=== PATIENT | female | born 1970 | race Asian ===

== ENCOUNTER 2017-07-24 13:21 | Emergency (ER) | payer MEDICAID ==
[~2017-07-24] VITALS: Ht 165.1 cm; Wt 72.7 kg
[~2017-07-24 13:21] MED LIST: DOCU250C91 PO; LURA80 PO; MACR100 PO
[2017-07-24] MEDS ORDERED: RISPC25 IM (13:44)
[2017-07-24 14:31] LABS: BASOPHILS % (AUTO) 0.2 % (0.0-2.0); EOSINOPHILS % (AUTO) 2.2 % (1.0-6.0); HEMATOCRIT 35.7 % (36-46); HEMOGLOBIN 12.1 g/dL (12.0-16.0); LYMPHOCYTES # (AUTO) 1.8 K/uL (1.0-4.8); LYMPHOCYTES % (AUTO) 17.1 % (22.0-44.0); MEAN CORPUSCULAR HEMOGLOBIN 30.3 pg (26.0-34.0); MEAN CORPUSCULAR VOLUME 89 fL (80-100); MONOCYTES # (AUTO) 0.4 K/uL (0.1-1.0); MONOCYTES % (AUTO) 4.3 % (2.0-9.0); NEUTROPHILS # (AUTO) 7.9 K/uL (1.8-7.7); NEUTROPHILS % (AUTO) 76.2 % (40.0-70.0); PLATELET COUNT (AUTO) 511 K/uL (150-450); RED CELL DISTRIBUTION WIDTH 15.5 % (11.5-14.5); WHITE BLOOD COUNT (AUTO) 10.4 K/uL (4.5-11.0)
[2017-07-24 15:21] LABS: ANION GAP 11 mmol/L (8-16); CALCIUM, TOTAL 8.5 mg/dL (8.8-10.5); CARBON DIOXIDE 25 mmol/L (22-29); CHLORIDE 103 mmol/L (98-107); CREATININE 0.87 mg/dL (0.60-1.30); GLOMERULAR FILTR. RATE CALC > 60 mL/min (>60); SODIUM SERUM 139 mmol/L (136-145); UREA NITROGEN, BLOOD 7 mg/dL (7-18)
[2017-07-24 15:27] LABS: ALANINE AMINOTRANSFERASE 70 U/L (12-78); ALBUMIN 2.7 g/dL (3.4-5.0); ASPARTATE AMINOTRANSFERASE 61 U/L (15-37); BILIRUBIN,TOTAL 0.6 mg/dL (0.1-1.0)
[2017-07-24 17:34] VITALS: BP 141/89
== END 2017-07-24 17:37 | disposition home or self-care (01) ==
LOC: EMS 13:22
DX: L08.9 Local infection of the skin and subcutaneous tissue, unspecified (principal); F45.8 Other somatoform disorders; F20.9 Schizophrenia, unspecified; F15.10 Other stimulant abuse, uncomplicated; F17.210 Nicotine dependence, cigarettes, uncomplicated
CPT/HCPCS: 99285; 99406

== ENCOUNTER 2019-01-06 01:28 | Inpatient (IN) | payer MEDICAID ==
[~2019-01-06] VITALS: Ht 165.1 cm; Wt 77.3 kg
[~2019-01-06 01:28] MED LIST changes: +BICIT30L PO; -MACR100 PO; +METO25 PO; +PALI39DI IM
[2019-01-06] MEDS ORDERED: SODIUM CHLORIDE 0.9% 2,300 ML IV ONE (03:00)
[2019-01-06] MEDS ORDERED: 0.9% SODIUM CHLORIDE 10 ML SYRINGE IVP PRN ×2 (03:00→06:15)
[2019-01-06] MEDS ORDERED: RISP0.5T61 PO (03:22)
[2019-01-06 03:37] LABS: BASOPHILS % (AUTO) 0.6 % (0.0-2.0); EOSINOPHILS % (AUTO) 5.3 % (1.0-6.0); HEMATOCRIT 37.2 % (36-46); HEMOGLOBIN 12.1 g/dL (12.0-16.0); LYMPHOCYTES # (AUTO) 1.2 K/uL (1.0-4.8); LYMPHOCYTES % (AUTO) 12.7 % (22.0-44.0); MEAN CORPUSCULAR HEMOGLOBIN 28.3 pg (26.0-34.0); MEAN CORPUSCULAR HGB CONC 32.5 G/dL (31.0-37.0); MEAN CORPUSCULAR VOLUME 87 fL (80-100); MONOCYTES # (AUTO) 1.2 K/uL (0.1-1.0); MONOCYTES % (AUTO) 12.3 % (2.0-9.0); NEUTROPHILS # (AUTO) 6.6 K/uL (1.8-7.7); NEUTROPHILS % (AUTO) 69.1 % (40.0-70.0); PLATELET COUNT (AUTO) 532 K/uL (150-450); RED BLOOD CELL COUNT(AUTO) 4.26 MIL/uL (4.00-5.20); RED CELL DISTRIBUTION WIDTH 15.5 % (11.5-14.5)
[2019-01-06 03:47] LABS: PROTHROMBIN TIME 10.2 SEC (9.4-11.6)
[2019-01-06 03:48] LABS: CREATININE 1.56 mg/dL (0.60-1.30); POTASSIUM 3.2 mmol/L (3.5-5.1)
[2019-01-06 03:58] LABS: ALBUMIN 1.6 g/dL (3.4-5.0); BILIRUBIN,TOTAL 0.4 mg/dL (0.1-1.0); TOTAL PROTEIN, SERUM 7.1 g/dL (6.4-8.2)
[2019-01-06 04:08] LABS: LACTIC ACID 1.2 mmol/L (0.4-2.0)
[2019-01-06 04:25] LABS: INFLUENZA TYPE A NEGATIVE FOR TYPE A (NEGATIVE); INFLUENZA TYPE B NEGATIVE FOR TYPE B (NEGATIVE)
[2019-01-06] MEDS ORDERED: FUROSEMIDE 40 MG/4 ML VIAL IVP ONE (05:15)
[2019-01-06] MEDS ORDERED: ALBUTEROL SULFATE 2.5 MG/0.5 ML NEB SOLUTION NEB ONE (05:15)
[2019-01-06] MEDS ORDERED: ASPIRIN 81 MG CHEWABLE TABLET PO ONE (05:15)
[2019-01-06] MEDS ORDERED: NITROGLYCERIN 2% (1 GM=INCH) PACKET TP ONE (05:15)
[2019-01-06] MEDS ORDERED: IPRATROPIUM BROMIDE 0.5 MG/2.5 ML NEB SOLUTION NEB ONE (05:15)
[2019-01-06 05:18] LABS: APPEARANCE,URINE TURBID (CLEAR); GLUCOSE, URINE (UA) NEGATIVE (NEGATIVE); KETONES,URINE NEGATIVE (NEGATIVE); LEUKOCYTE ESTERASE ,URINE NEGATIVE (NEGATIVE); NITRATE,URINE NEGATIVE (NEGATIVE); OCCULT BLOOD,URINE LARGE (NEGATIVE); PH,URINE 5.5 (5.0-8.0); PROTEIN,URINE SEE CONFIRM (NEGATIVE)
[2019-01-06 05:25] LABS: BILIRUBIN,URINE PRELIM. POSITIVE (NEGATIVE)
[2019-01-06 05:27] LABS: AMPHET/METH SCREEN,URINE POSITIVE (NEGATIVE); BARBITURATE SCREEN, URINE NEGATIVE (NEGATIVE); BENZODIAZEPINES SCREEN,URINE POSITIVE (NEGATIVE); CANNABINOID SCREEN,URINE NEGATIVE (NEGATIVE); COCAINE SCREEN,URINE POSITIVE (NEGATIVE); METHADONE SCREEN, URINE NEGATIVE (NEGATIVE); OPIATE SCREEN,URINE NEGATIVE (NEGATIVE)
[2019-01-06 05:28] LABS: PHENCYCLIDINE SCREEN,URINE NEGATIVE (NEGATIVE)
[2019-01-06 05:38] LABS: BACTERIA,URINE Few /HPF (None Seen); RBC,URINE 26-50 /HPF (0-2)
[2019-01-06 05:39] LABS: SQUAMOUS EPITHELIAL CELL,UR Moderate /LPF (None Seen); SULFOSALICYLIC ACID,URINE 3+ (Negative)
[2019-01-06] MEDS ORDERED: ONDANSETRON HCL 4 MG/2 ML VIAL IVP PRN (06:15)
[2019-01-06] MEDS ORDERED: ACETAMINOPHEN 325 MG TABLET PO PRN ×2 (06:15→08:00)
[2019-01-06] MEDS ORDERED: ALBUTEROL SULFATE 2.5 MG/0.5 ML NEB SOLUTION NEB SCH (07:00)
[2019-01-06] MEDS: IPRATROPIUM BROMIDE 0.5 MG/2.5 ML NEB SOLUTION NEB SCH ×3 (07:49→15:00)
[2019-01-06] MEDS ORDERED: BISACODYL 10 MG RECTAL RECTAL SUPPOSITORY PR PRN (08:00)
[2019-01-06] MEDS: ASPIRIN 81 MG CHEWABLE TABLET PO SCH (08:30)
[2019-01-06] MEDS: HEPARIN SODIUM,PORCINE 5,000 UNITS/ML VIAL SQ SCH ×2 (08:30→20:00)
[2019-01-06] MEDS: DOCUSATE SODIUM 100 MG CAPSULE PO SCH ×2 (08:31→19:59)
[2019-01-06] MEDS: FAMOTIDINE 20 MG TABLET PO SCH (08:31)
[2019-01-06] MEDS: FUROSEMIDE 20 MG/2 ML VIAL IVP SCH ×2 (08:42→20:00)
[2019-01-06] MEDS: ALBUTEROL SULFATE 2.5 MG/0.5 ML NEB SOLUTION NEB PRN (10:21)
[2019-01-06 15:23] VITALS: BP 116/67
[2019-01-06 19:21] VITALS: BP 132/73
[2019-01-06 23:32] VITALS: BP 134/85
[2019-01-07 04:38] VITALS: BP 136/90
[2019-01-07 07:18] LABS: BASOPHILS % (AUTO) 0.9 % (0.0-2.0); EOSINOPHILS % (AUTO) 8.3 % (1.0-6.0); HEMATOCRIT 39.1 % (36-46); HEMOGLOBIN 12.9 g/dL (12.0-16.0); LYMPHOCYTES # (AUTO) 1.5 K/uL (1.0-4.8); LYMPHOCYTES % (AUTO) 20.1 % (22.0-44.0); MEAN CORPUSCULAR HEMOGLOBIN 28.6 pg (26.0-34.0); MEAN CORPUSCULAR HGB CONC 33.1 G/dL (31.0-37.0); MEAN CORPUSCULAR VOLUME 87 fL (80-100); MONOCYTES % (AUTO) 13.5 % (2.0-9.0); NEUTROPHILS # (AUTO) 4.2 K/uL (1.8-7.7); NEUTROPHILS % (AUTO) 57.2 % (40.0-70.0); PLATELET COUNT (AUTO) 455 K/uL (150-450); RED BLOOD CELL COUNT(AUTO) 4.52 MIL/uL (4.00-5.20); RED CELL DISTRIBUTION WIDTH 15.7 % (11.5-14.5)
[2019-01-07 07:41] LABS: ALBUMIN 1.7 g/dL (3.4-5.0); BILIRUBIN,TOTAL 0.4 mg/dL (0.1-1.0); CALCIUM, TOTAL 8.6 mg/dL (8.8-10.5); CREATININE 1.78 mg/dL (0.60-1.30); POTASSIUM 3.6 mmol/L (3.5-5.1); TOTAL PROTEIN, SERUM 7.3 g/dL (6.4-8.2)
[2019-01-07 07:44] VITALS: BP 151/95
[2019-01-07] MEDS: FUROSEMIDE 20 MG/2 ML VIAL IVP SCH (08:15)
[2019-01-07] MEDS: DOCUSATE SODIUM 100 MG CAPSULE PO SCH ×2 (08:15→20:38)
[2019-01-07] MEDS: ASPIRIN 81 MG CHEWABLE TABLET PO SCH (08:15)
[2019-01-07] MEDS: FAMOTIDINE 20 MG TABLET PO SCH (08:15)
[2019-01-07] MEDS: HEPARIN SODIUM,PORCINE 5,000 UNITS/ML VIAL SQ SCH ×2 (08:15→20:35)
[2019-01-07 11:11] VITALS: BP 139/91
[2019-01-07 15:06] VITALS: BP 135/89
[2019-01-07 19:53] VITALS: BP 150/92
[2019-01-07] MEDS: CARVEDILOL 6.25 MG TABLET PO SCH (20:35)
[2019-01-07 23:41] VITALS: BP 142/79
[2019-01-08 03:40] VITALS: BP 139/92
[2019-01-08] MEDS ORDERED: 0.9% SODIUM CHLORIDE 5 ML NEB SOLUTION NEB ONE (07:28)
[2019-01-08] MEDS: ALBUTEROL SULFATE 2.5 MG/0.5 ML NEB SOLUTION NEB PRN (07:38)
[2019-01-08 08:00] LABS: CALCIUM, TOTAL 8.9 mg/dL (8.8-10.5); CREATININE 1.47 mg/dL (0.60-1.30); POTASSIUM 3.4 mmol/L (3.5-5.1)
[2019-01-08 08:50] VITALS: BP 150/81
[2019-01-08] MEDS: DOCUSATE SODIUM 100 MG CAPSULE PO SCH (08:52)
[2019-01-08] MEDS: HEPARIN SODIUM,PORCINE 5,000 UNITS/ML VIAL SQ SCH (08:53)
[2019-01-08] MEDS: ASPIRIN 81 MG CHEWABLE TABLET PO SCH (08:54)
[2019-01-08] MEDS: FAMOTIDINE 20 MG TABLET PO SCH (08:54)
[2019-01-08] MEDS: CARVEDILOL 6.25 MG TABLET PO SCH (08:54)
[2019-01-08] MEDS ORDERED: FUROSEMIDE 20 MG/2 ML VIAL IVP SCH (09:00)
[2019-01-08] MEDS ORDERED: POTASSIUM CHLORIDE 20 MEQ ER TABLET PO ONE (09:45)
== END 2019-01-08 15:20 | disposition left against medical advice (07) | DRG 194 ==
LOC: EMS 01:28 → 5N 14:38
PROVIDERS: ADMIT Internal Medicine; ATTEND Internal Medicine
DX: I50.41 Acute combined systolic (congestive) and diastolic (congestive) heart failure (principal); N17.9 Acute kidney failure, unspecified; E44.0 Moderate protein-calorie malnutrition; J90 Pleural effusion, not elsewhere classified; I42.9 Cardiomyopathy, unspecified; F20.9 Schizophrenia, unspecified; F14.10 Cocaine abuse, uncomplicated; F15.10 Other stimulant abuse, uncomplicated; Z53.21 Procedure and treatment not carried out due to patient leaving prior to being seen by health care provider; I34.0 Nonrheumatic mitral (valve) insufficiency; F31.9 Bipolar disorder, unspecified; F17.210 Nicotine dependence, cigarettes, uncomplicated; Z91.14 Patient's other noncompliance with medication regimen; Z91.19 Patient's noncompliance with other medical treatment and regimen; Z71.51 Drug abuse counseling and surveillance of drug abuser; Z68.28 Body mass index [BMI] 28.0-28.9, adult
CPT/HCPCS: 83605; 87040; 87804; 93005; 93306; 94640; 96374; G0378; J1644; J1940

== ENCOUNTER 2021-12-30 12:52 | Inpatient (IN) | payer MEDICAID ==
[~2021-12-30] VITALS: Ht 165.1 cm; Wt 65.1 kg
[~2021-12-30 12:52] MED LIST changes: -BICIT30L PO; -DOCU250C91 PO; -LURA80 PO; +RISP0.5T61 PO
[2021-12-30 17:35] LABS: HEMATOCRIT 43.1 % (36-46); HEMOGLOBIN 13.2 g/dL (12.0-16.0); LYMPHOCYTES # (AUTO) 1.3 K/uL (1.0-4.8); LYMPHOCYTES % (AUTO) 19.4 % (22.0-44.0); MEAN CORPUSCULAR HEMOGLOBIN 24.4 pg (26.0-34.0); MEAN CORPUSCULAR HGB CONC 30.8 G/dL (31.0-37.0); MEAN CORPUSCULAR VOLUME 80 fL (80-100); MONOCYTES # (AUTO) 1.2 K/uL (0.1-1.0); NEUTROPHILS # (AUTO) 3.9 K/uL (1.8-7.7); NEUTROPHILS % (AUTO) 59.6 % (40.0-70.0); PLATELET COUNT (AUTO) 404 K/uL (150-450); RED BLOOD CELL COUNT(AUTO) 5.42 MIL/uL (4.00-5.20); RED CELL DISTRIBUTION WIDTH 20.4 % (11.5-14.5)
[2021-12-30 17:38] LABS: ANION GAP 14 mmol/L (8-16); CALCIUM, TOTAL 9.6 mg/dL (8.8-10.5); CARBON DIOXIDE 19 mmol/L (22-29); CHLORIDE 103 mmol/L (98-107); CREATININE 3.38 mg/dL (0.60-1.30); GLOMERULAR FILTR. RATE CALC 14 mL/min (>60); GLUCOSE,RANDOM 95 mg/dL (70-110); POTASSIUM 4.8 mmol/L (3.5-5.1); SODIUM SERUM 136 mmol/L (136-145); UREA NITROGEN, BLOOD 56 mg/dL (7-18)
[2021-12-30 17:51] LABS: ALANINE AMINOTRANSFERASE 161 U/L (12-78); ALBUMIN 3.1 g/dL (3.4-5.0); ALKALINE PHOSPHATASE 190 U/L (46-116); ASPARTATE AMINOTRANSFERASE 343 U/L (15-37); BILIRUBIN,TOTAL 1.3 mg/dL (0.1-1.0); TOTAL PROTEIN, SERUM 8.9 g/dL (6.4-8.2)
[2021-12-30 20:13] LABS: COVID AG,FIA SOURCE NASOPHARYNGEAL
[2021-12-30] MEDS ORDERED: ZOLPIDEM TARTRATE 10 MG TABLET PO PRN (21:15)
[2021-12-30] MEDS ORDERED: OLANZapine 5 MG RAPDIS TABLET PO PRN (21:15)
[2021-12-30 22:26] LABS: AMPHET/METH SCREEN,URINE POSITIVE (NEGATIVE); BARBITURATE SCREEN, URINE NEGATIVE (NEGATIVE); BENZODIAZEPINES SCREEN,URINE NEGATIVE (NEGATIVE); CANNABINOID SCREEN,URINE NEGATIVE (NEGATIVE); COCAINE SCREEN,URINE NEGATIVE (NEGATIVE); METHADONE SCREEN, URINE NEGATIVE (NEGATIVE); OPIATE SCREEN,URINE NEGATIVE (NEGATIVE); PHENCYCLIDINE SCREEN,URINE NEGATIVE (NEGATIVE)
[2021-12-31 03:48] VITALS: BP 148/78
[2021-12-31] MEDS ORDERED: INFLUENZA VIRUS VACCINE QVS 2021-22 (6MO+)/PF 60 MCG/0.5 ML SYRINGE IM. ONE (04:30)
[2021-12-31 08:15] LABS: CHOL/HDL RATIO 3.1 (3.9-5.7); CHOLESTEROL 123 mg/dL (131-200); HDL CHOLESTEROL 40 mg/dL (40-60); LDL CHOL (CALC.) 66 mg/dL (0-130); TRIGLYCERIDES 84 mg/dL (15-150)
[2021-12-31] MEDS: LORazepam 2 MG TABLET PO PRN (09:57)
[2021-12-31] MEDS ORDERED: MAGNESIUM HYDROXIDE SUSPENSION 30 ML UDCUP PO PRN (12:00)
[2021-12-31] MEDS ORDERED: HydrOXYzine PAMOATE 50 MG CAPSULE PO PRN (12:00)
[2021-12-31] MEDS ORDERED: PROMETHAZINE HCL 25 MG TABLET PO PRN (12:00)
[2021-12-31] MEDS ORDERED: ACETAMINOPHEN 325 MG TABLET PO PRN (12:00)
[2021-12-31] MEDS ORDERED: LOPERAMIDE HCL 2 MG CAPSULE PO PRN (12:00)
[2021-12-31] MEDS ORDERED: TUBERCULIN, PURIFIED PROTEIN DERIVATIVE 5 TU/0.1 ML SYRINGE ID ONE (12:00)
[2021-12-31] MEDS ORDERED: MAG HYDROX/AL HYDROX/SIMETH ES 30 ML SUSPENSION UDCUP PO PRN (12:00)
[2021-12-31] MEDS ORDERED: PALIPERIDONE PALMITATE 234 MG/1.5 ML SYRINGE IM ONE (12:00)
[2021-12-31 16:00] VITALS: BP 148/96
[2021-12-31] MEDS: THIAMINE 100 MG TABLET PO SCH (17:00)
[2021-12-31] MEDS: MELATONIN 5 MG TABLET PO SCH (20:39)
[2021-12-31] MEDS: OLANZapine 5 MG RAPDIS TABLET PO SCH (20:39)
[2021-12-31] MEDS ORDERED: CloNIDine HCL 0.1 MG TABLET PO PRN (21:15)
[2022-01-01 08:00] VITALS: BP 144/84
[2022-01-01 08:08] LABS: ALBUMIN 2.4 g/dL (3.4-5.0); BILIRUBIN,TOTAL 1.7 mg/dL (0.1-1.0); CALCIUM, TOTAL 9.2 mg/dL (8.8-10.5); CHOL/HDL RATIO 3.4 (3.9-5.7); CREATININE 3.14 mg/dL (0.60-1.30); FREE T4 (FREE THYROXINE) 1.2 ng/dL (0.76-1.46); MAGNESIUM 2.2 mg/dL (1.80-2.40); PHOSPHORUS 4.2 mg/dL (2.5-4.9); POTASSIUM 4.8 mmol/L (3.5-5.1); THYROID STIMULATING HORMONE 6.25 uIU/mL (0.36-3.74); TOTAL PROTEIN, SERUM 7.4 g/dL (6.4-8.2)
[2022-01-01] MEDS: AmLODIPine BESYLATE 5 MG TABLET PO SCH (08:39)
[2022-01-01] MEDS: MULTIVITAMINS WITH MINERALS, THERAPEUTIC TABLET PO SCH (08:39)
[2022-01-01] MEDS: OMEGA-3/DHA/EPA/FISH OIL 1,000 MG CAPSULE PO SCH (08:39)
[2022-01-01] MEDS: SODIUM BICARBONATE 650 MG TABLET PO SCH (08:40)
[2022-01-01] MEDS: BuPROPion HCL XL 150 MG ER TABLET PO SCH (08:40)
[2022-01-01] MEDS: THIAMINE 100 MG TABLET PO SCH ×2 (08:40→16:42)
[2022-01-01] MEDS: NALTREXONE HCL 50 MG TABLET PO SCH (08:40)
[2022-01-01] MEDS: FOLIC ACID 1 MG TABLET PO SCH (08:40)
[2022-01-01] MEDS ORDERED: METOPROLOL TARTRATE 25 MG TABLET PO SCH (09:00)
[2022-01-01 09:16] LABS: COVID AG,FIA SOURCE NASOPHARYNGEAL
[2022-01-01] MEDS: GuaiFENesin/D-METHORPHAN [SUGAR-FREE] 200-20MG/10 ML SYRUP UDCUP PO PRN ×2 (09:16→18:46)
[2022-01-01 16:54] VITALS: BP 134/83
[2022-01-01] MEDS: MELATONIN 5 MG TABLET PO SCH (20:24)
[2022-01-01] MEDS: OLANZapine 5 MG RAPDIS TABLET PO SCH (20:24)
[2022-01-02 03:06] LABS: HEPATITIS C AB (EIA) <0.1 s/co ratio (0.0-0.9)
[2022-01-02 06:57] VITALS: BP 155/94
[2022-01-02] MEDS: GuaiFENesin/D-METHORPHAN [SUGAR-FREE] 200-20MG/10 ML SYRUP UDCUP PO PRN ×2 (06:57→18:56)
[2022-01-02] MEDS: OMEGA-3/DHA/EPA/FISH OIL 1,000 MG CAPSULE PO SCH (09:04)
[2022-01-02] MEDS: FOLIC ACID 1 MG TABLET PO SCH (09:04)
[2022-01-02] MEDS: THIAMINE 100 MG TABLET PO SCH ×2 (09:04→17:00)
[2022-01-02] MEDS: AmLODIPine BESYLATE 5 MG TABLET PO SCH (09:04)
[2022-01-02] MEDS: NALTREXONE HCL 50 MG TABLET PO SCH (09:04)
[2022-01-02] MEDS: SODIUM BICARBONATE 650 MG TABLET PO SCH (09:05)
[2022-01-02] MEDS: BuPROPion HCL XL 150 MG ER TABLET PO SCH (09:05)
[2022-01-02] MEDS: MULTIVITAMINS WITH MINERALS, THERAPEUTIC TABLET PO SCH (09:05)
[2022-01-02 09:08] VITALS: BP 134/80
[2022-01-02] MEDS ORDERED: PALIPERIDONE PALMITATE 234 MG/1.5 ML SYRINGE IM ONE (11:00)
[2022-01-02] MEDS: OLANZapine 5 MG RAPDIS TABLET PO SCH ×3 (20:22→21:00)
[2022-01-02] MEDS: MELATONIN 5 MG TABLET PO SCH ×3 (20:22→21:16)
[2022-01-03] MEDS: AmLODIPine BESYLATE 5 MG TABLET PO SCH (08:24)
[2022-01-03] MEDS: SODIUM BICARBONATE 650 MG TABLET PO SCH (08:24)
[2022-01-03] MEDS: NALTREXONE HCL 50 MG TABLET PO SCH ×2 (08:24→09:00)
[2022-01-03] MEDS: THIAMINE 100 MG TABLET PO SCH ×3 (08:24→17:00)
[2022-01-03] MEDS: MULTIVITAMINS WITH MINERALS, THERAPEUTIC TABLET PO SCH (08:24)
[2022-01-03] MEDS: FOLIC ACID 1 MG TABLET PO SCH ×2 (08:24→09:00)
[2022-01-03] MEDS: BuPROPion HCL XL 150 MG ER TABLET PO SCH (08:24)
[2022-01-03] MEDS: OMEGA-3/DHA/EPA/FISH OIL 1,000 MG CAPSULE PO SCH ×2 (08:24→09:00)
[2022-01-03] MEDS: LORazepam 2 MG TABLET PO PRN (08:27)
[2022-01-03 08:41] LABS: ALBUMIN 2.5 g/dL (3.4-5.0); BILIRUBIN,TOTAL 1.9 mg/dL (0.1-1.0); CALCIUM, TOTAL 9.1 mg/dL (8.8-10.5); CREATININE 3.26 mg/dL (0.60-1.30); POTASSIUM 4.9 mmol/L (3.5-5.1); TOTAL PROTEIN, SERUM 7.7 g/dL (6.4-8.2)
[2022-01-03 09:44] VITALS: BP 156/114
[2022-01-03] MEDS: LABETALOL HCL 100 MG TABLET PO SCH ×2 (10:28→17:00)
[2022-01-03 11:00] LABS: MAGNESIUM 2.3 mg/dL (1.80-2.40); PHOSPHORUS 4.9 mg/dL (2.5-4.9)
[2022-01-03] MEDS: GuaiFENesin/D-METHORPHAN [SUGAR-FREE] 200-20MG/10 ML SYRUP UDCUP PO PRN (20:02)
[2022-01-03] MEDS: OLANZapine 5 MG RAPDIS TABLET PO SCH (20:13)
[2022-01-03] MEDS: MELATONIN 5 MG TABLET PO SCH (20:13)
[2022-01-04 05:15] VITALS: BP 150/82
[2022-01-04 08:00] VITALS: BP 125/94
[2022-01-04] MEDS ORDERED: PALIPERIDONE PALMITATE 156 MG/ML SYRINGE IM ONE (09:00)
[2022-01-04 09:35] LABS: INR 1.3 (0.9-1.1); PROTHROMBIN TIME 13.2 SEC (9.4-11.6)
[2022-01-04] MEDS: THIAMINE 100 MG TABLET PO SCH ×2 (10:30→17:00)
[2022-01-04] MEDS: MULTIVITAMINS WITH MINERALS, THERAPEUTIC TABLET PO SCH (10:30)
[2022-01-04] MEDS: AmLODIPine BESYLATE 5 MG TABLET PO SCH (10:30)
[2022-01-04] MEDS: SODIUM BICARBONATE 650 MG TABLET PO SCH (10:30)
[2022-01-04] MEDS: LABETALOL HCL 100 MG TABLET PO SCH ×2 (10:30→17:20)
[2022-01-04] MEDS: FOLIC ACID 1 MG TABLET PO SCH (10:30)
[2022-01-04] MEDS: OMEGA-3/DHA/EPA/FISH OIL 1,000 MG CAPSULE PO SCH (10:30)
[2022-01-04] MEDS: NALTREXONE HCL 50 MG TABLET PO SCH (10:30)
[2022-01-04] MEDS: BuPROPion HCL XL 150 MG ER TABLET PO SCH (10:42)
[2022-01-04] MEDS: GuaiFENesin/D-METHORPHAN [SUGAR-FREE] 200-20MG/10 ML SYRUP UDCUP PO PRN (13:36)
[2022-01-04] MEDS: MELATONIN 5 MG TABLET PO SCH (21:23)
[2022-01-04] MEDS: OLANZapine 5 MG RAPDIS TABLET PO SCH (21:23)
[2022-01-05 03:40] VITALS: BP 127/86
[2022-01-05] MEDS: LABETALOL HCL 100 MG TABLET PO SCH ×2 (09:45→17:00)
[2022-01-05] MEDS: SODIUM BICARBONATE 650 MG TABLET PO SCH (09:46)
[2022-01-05] MEDS: NALTREXONE HCL 50 MG TABLET PO SCH (09:48)
[2022-01-05] MEDS: FOLIC ACID 1 MG TABLET PO SCH (09:48)
[2022-01-05] MEDS: THIAMINE 100 MG TABLET PO SCH ×2 (09:48→17:00)
[2022-01-05] MEDS: AmLODIPine BESYLATE 5 MG TABLET PO SCH (09:48)
[2022-01-05] MEDS: OMEGA-3/DHA/EPA/FISH OIL 1,000 MG CAPSULE PO SCH (09:48)
[2022-01-05] MEDS: MULTIVITAMINS WITH MINERALS, THERAPEUTIC TABLET PO SCH (09:48)
[2022-01-05] MEDS: BuPROPion HCL XL 150 MG ER TABLET PO SCH (09:51)
[2022-01-05 10:43] VITALS: BP 132/93
[2022-01-05 16:28] VITALS: BP 99/68
[2022-01-05] MEDS: OLANZapine 5 MG RAPDIS TABLET PO SCH (21:00)
[2022-01-05] MEDS: MELATONIN 5 MG TABLET PO SCH (21:00)
[2022-01-06 07:48] LABS: CALCIUM, TOTAL 9.2 mg/dL (8.8-10.5); CREATININE 4.18 mg/dL (0.60-1.30); MAGNESIUM 2.9 mg/dL (1.80-2.40); POTASSIUM 5.2 mmol/L (3.5-5.1)
[2022-01-06] MEDS ORDERED: PALIPERIDONE PALMITATE 156 MG/ML SYRINGE IM ONE (09:00)
[2022-01-06 09:59] VITALS: BP 119/73
[2022-01-06] MEDS: MULTIVITAMINS WITH MINERALS, THERAPEUTIC TABLET PO SCH (11:40)
[2022-01-06] MEDS: AmLODIPine BESYLATE 5 MG TABLET PO SCH (11:41)
[2022-01-06] MEDS: OMEGA-3/DHA/EPA/FISH OIL 1,000 MG CAPSULE PO SCH (11:41)
[2022-01-06] MEDS: BuPROPion HCL XL 150 MG ER TABLET PO SCH (11:43)
[2022-01-06] MEDS: NALTREXONE HCL 50 MG TABLET PO SCH (11:43)
[2022-01-06] MEDS: LABETALOL HCL 100 MG TABLET PO SCH (11:43)
[2022-01-06] MEDS: FOLIC ACID 1 MG TABLET PO SCH (11:43)
[2022-01-06] MEDS: THIAMINE 100 MG TABLET PO SCH (11:44)
[2022-01-06] MEDS: SODIUM BICARBONATE 650 MG TABLET PO SCH (11:44)
[2022-01-06] MEDS ORDERED: SODIUM CHLORIDE 0.9% 1,000 ML IV SCH (13:00)
[2022-01-06 16:32] VITALS: BP 95/67
== END 2022-01-06 17:00 | disposition short-term general hospital (02) | DRG 750 ==
LOC: EMS 12:57 → 3EI 12-31 02:10
PROVIDERS: ADMIT Psychiatry & Neurology Psychiatry; ATTEND Psychiatry & Neurology Psychiatry
DX: F25.9 Schizoaffective disorder, unspecified (principal); E87.2 Acidosis; I13.0 Hypertensive heart and chronic kidney disease with heart failure and stage 1 through stage 4 chronic kidney disease, or unspecified chronic kidney disease; I50.9 Heart failure, unspecified; F31.9 Bipolar disorder, unspecified; F10.10 Alcohol abuse, uncomplicated; F15.90 Other stimulant use, unspecified, uncomplicated; R79.89 Other specified abnormal findings of blood chemistry; I34.0 Nonrheumatic mitral (valve) insufficiency; J44.9 Chronic obstructive pulmonary disease, unspecified; N18.9 Chronic kidney disease, unspecified; F19.10 Other psychoactive substance abuse, uncomplicated; F99 Mental disorder, not otherwise specified; N26.9 Renal sclerosis, unspecified; Z20.822 Contact with and (suspected) exposure to COVID-19; Z59.9 Problem related to housing and economic circumstances, unspecified; Z63.9 Problem related to primary support group, unspecified; Z55.9 Problems related to education and literacy, unspecified; Z65.3 Problems related to other legal circumstances; Z59.00 Homelessness unspecified; Z79.899 Other long term (current) drug therapy; Z87.891 Personal history of nicotine dependence; Z91.19 Patient's noncompliance with other medical treatment and regimen
CPT/HCPCS: 76770; 80048; 80053; 80061; 80074; 82105; 83036; 83735; 84100; 84439; 84443; 85025; 85610; 85730; 86592; 93005; 99285; G0480; J7030; Q9967

== ENCOUNTER 2022-01-06 17:54 | Inpatient (IN) | payer MEDICAID ==
[~2022-01-06] VITALS: Ht 165.1 cm; Wt 59.7 kg
[2022-01-06] MEDS ORDERED: SODIUM CHLORIDE 0.9% 1,000 ML IV SCH (19:00)
[2022-01-06] MEDS: PANTOPRAZOLE SODIUM 40 MG/VIAL IVP SCH (20:50)
[2022-01-06 20:51] VITALS: BP 111/61
[2022-01-06 20:58] VITALS: BP 97/88
[2022-01-06] MEDS: ALBUTEROL SULFATE 2.5 MG/0.5 ML NEB SOLUTION NEB PRN (21:23)
[2022-01-06] MEDS: IPRATROPIUM BROMIDE 0.5 MG/2.5 ML NEB SOLUTION NEB PRN (21:23)
[2022-01-06 21:26] LABS: BASOPHILS % (AUTO) 0.6 % (0.0-2.0); EOSINOPHILS % (AUTO) 0.3 % (1.0-6.0); HEMATOCRIT 39.5 % (36-46); LYMPHOCYTES # (AUTO) 1.3 K/uL (1.0-4.8); LYMPHOCYTES % (AUTO) 11.4 % (22.0-44.0); MEAN CORPUSCULAR HEMOGLOBIN 23.8 pg (26.0-34.0); MEAN CORPUSCULAR HGB CONC 30.4 G/dL (31.0-37.0); MEAN CORPUSCULAR VOLUME 78 fL (80-100); MONOCYTES # (AUTO) 0.8 K/uL (0.1-1.0); NEUTROPHILS # (AUTO) 9.2 K/uL (1.8-7.7); NEUTROPHILS % (AUTO) 80.7 % (40.0-70.0); PLATELET COUNT (AUTO) 230 K/uL (150-450); RED BLOOD CELL COUNT(AUTO) 5.04 MIL/uL (4.00-5.20); RED CELL DISTRIBUTION WIDTH 20.9 % (11.5-14.5)
[2022-01-06 21:42] LABS: ALBUMIN 2.1 g/dL (3.4-5.0); BILIRUBIN,DIRECT 1.3 mg/dL (0.00-0.20); BILIRUBIN,TOTAL 1.9 mg/dL (0.1-1.0); CALCIUM, TOTAL 8.4 mg/dL (8.8-10.5); CREATININE 4.64 mg/dL (0.60-1.30); POTASSIUM 5.4 mmol/L (3.5-5.1); TOTAL PROTEIN, SERUM 6.9 g/dL (6.4-8.2)
[2022-01-07] MEDS: HEPARIN SODIUM,PORCINE 5,000 UNITS/ML VIAL SQ SCH ×3 (01:20→16:00)
[2022-01-07] MEDS: IPRATROPIUM BROMIDE 0.5 MG/2.5 ML NEB SOLUTION NEB SCH ×4 (02:23→21:16)
[2022-01-07] MEDS: ALBUTEROL SULFATE 2.5 MG/0.5 ML NEB SOLUTION NEB SCH ×4 (02:23→21:14)
[2022-01-07 04:15] VITALS: BP 106/72
[2022-01-07 07:18] LABS: BASOPHILS % (AUTO) 0.4 % (0.0-2.0); EOSINOPHILS % (AUTO) 1.3 % (1.0-6.0); HEMOGLOBIN 11.4 g/dL (12.0-16.0); LYMPHOCYTES # (AUTO) 1.4 K/uL (1.0-4.8); LYMPHOCYTES % (AUTO) 14.7 % (22.0-44.0); MEAN CORPUSCULAR HGB CONC 30.9 G/dL (31.0-37.0); MEAN CORPUSCULAR VOLUME 78 fL (80-100); MONOCYTES # (AUTO) 0.7 K/uL (0.1-1.0); MONOCYTES % (AUTO) 8.1 % (2.0-9.0); NEUTROPHILS % (AUTO) 75.5 % (40.0-70.0); PLATELET COUNT (AUTO) 200 K/uL (150-450); RED BLOOD CELL COUNT(AUTO) 4.75 MIL/uL (4.00-5.20); RED CELL DISTRIBUTION WIDTH 20.9 % (11.5-14.5)
[2022-01-07 07:28] LABS: CALCIUM, TOTAL 7.6 mg/dL (8.8-10.5); CREATININE 4.15 mg/dL (0.60-1.30); MAGNESIUM 2.1 mg/dL (1.80-2.40); POTASSIUM 4.8 mmol/L (3.5-5.1)
[2022-01-07 08:26] VITALS: BP 102/65
[2022-01-07] MEDS: PANTOPRAZOLE SODIUM 40 MG/VIAL IVP SCH (09:20)
[2022-01-07] MEDS: SODIUM BICARBONATE 150 MEQ in DEXTROSE 5%-WATER 1,000 ML IV SCH (12:47)
[2022-01-07 16:07] VITALS: BP 127/73
[2022-01-07 20:47] VITALS: BP 119/72
[2022-01-08] MEDS: IPRATROPIUM BROMIDE 0.5 MG/2.5 ML NEB SOLUTION NEB SCH ×4 (02:00→20:00)
[2022-01-08] MEDS: ALBUTEROL SULFATE 2.5 MG/0.5 ML NEB SOLUTION NEB SCH ×4 (02:00→20:00)
[2022-01-08] MEDS: HEPARIN SODIUM,PORCINE 5,000 UNITS/ML VIAL SQ SCH ×4 (02:33→16:43)
[2022-01-08 03:25] VITALS: BP 142/70
[2022-01-08] MEDS: SODIUM BICARBONATE 150 MEQ in DEXTROSE 5%-WATER 1,000 ML IV SCH ×2 (04:28→18:34)
[2022-01-08 08:04] VITALS: BP 125/83
[2022-01-08] MEDS: PANTOPRAZOLE SODIUM 40 MG/VIAL IVP SCH (09:00)
[2022-01-08 12:09] LABS: CALCIUM, TOTAL 8.4 mg/dL (8.8-10.5); CREATININE 3.45 mg/dL (0.60-1.30); POTASSIUM 4.1 mmol/L (3.5-5.1)
[2022-01-08 13:14] LABS: APPEARANCE,URINE CLOUDY (CLEAR); BILIRUBIN,URINE NEGATIVE (NEGATIVE); GLUCOSE, URINE (UA) NEGATIVE (NEGATIVE); KETONES,URINE NEGATIVE (NEGATIVE); LEUKOCYTE ESTERASE ,URINE TRACE (NEGATIVE); NITRATE,URINE POSITIVE (NEGATIVE); OCCULT BLOOD,URINE NEGATIVE (NEGATIVE); PH,URINE 5.5 (5.0-8.0); PROTEIN,URINE POS 1+ (NEGATIVE)
[2022-01-08 13:17] LABS: CHLORIDE,URINE RANDOM 67 mmol/L (55-125); CREATININE,URINE RANDOM 58.9 mg/dL (30.0-125.0); PROTEIN,URINE RANDOM 46 mg/dL (0-11.9); SODIUM,URINE RANDOM 54 mmol/l (20-110); UREA NITROGEN,URINE RANDOM 611 mg/dL (350-1000)
[2022-01-08 13:23] LABS: BACTERIA,URINE Moderate /HPF (None Seen); RBC,URINE None Seen /HPF (0-2); SQUAMOUS EPITHELIAL CELL,UR Few /LPF (None Seen)
[2022-01-08 16:00] VITALS: BP 130/92
[2022-01-08] MEDS: CefTRIAXone 1 GM/DEXTROSE 50 ML IV SCH (16:43)
[2022-01-08 18:12] VITALS: BP 141/99
[2022-01-08] MEDS: LORazepam 1 MG TABLET PO PRN (18:23)
[2022-01-08] MEDS: OLANZapine 5 MG RAPDIS TABLET PO SCH (21:00)
[2022-01-08] MEDS: DICLOFENAC SODIUM 1% 100 GM GEL [4GM] TP SCH (21:00)
[2022-01-08 22:44] VITALS: BP 140/97
[2022-01-09] MEDS: HEPARIN SODIUM,PORCINE 5,000 UNITS/ML VIAL SQ SCH ×3 (00:33→15:28)
[2022-01-09] MEDS: ALBUTEROL SULFATE 2.5 MG/0.5 ML NEB SOLUTION NEB SCH ×4 (03:04→20:17)
[2022-01-09] MEDS: IPRATROPIUM BROMIDE 0.5 MG/2.5 ML NEB SOLUTION NEB SCH ×4 (03:04→20:17)
[2022-01-09 04:00] VITALS: BP 139/93
[2022-01-09 07:45] VITALS: BP 136/97
[2022-01-09] MEDS: PANTOPRAZOLE SODIUM 40 MG/VIAL IVP SCH (08:48)
[2022-01-09] MEDS: DICLOFENAC SODIUM 1% 100 GM GEL [4GM] TP SCH ×2 (08:53→20:35)
[2022-01-09 12:00] LABS: ALBUMIN 1.9 g/dL (3.4-5.0); BILIRUBIN,TOTAL 2.3 mg/dL (0.1-1.0); CALCIUM, TOTAL 8.3 mg/dL (8.8-10.5); CREATININE 2.6 mg/dL (0.60-1.30); TOTAL PROTEIN, SERUM 6.6 g/dL (6.4-8.2)
[2022-01-09] MEDS: CefTRIAXone 1 GM/DEXTROSE 50 ML IV SCH (15:28)
[2022-01-09] MEDS: SODIUM BICARBONATE 150 MEQ in DEXTROSE 5%-WATER 1,000 ML IV SCH (15:29)
[2022-01-09 20:23] VITALS: BP 134/90
[2022-01-09] MEDS: OLANZapine 5 MG RAPDIS TABLET PO SCH (20:35)
[2022-01-10] MEDS: HEPARIN SODIUM,PORCINE 5,000 UNITS/ML VIAL SQ SCH ×4 (00:08→23:21)
[2022-01-10] MEDS: IPRATROPIUM BROMIDE 0.5 MG/2.5 ML NEB SOLUTION NEB SCH ×4 (02:59→19:37)
[2022-01-10] MEDS: ALBUTEROL SULFATE 2.5 MG/0.5 ML NEB SOLUTION NEB SCH ×4 (02:59→19:37)
[2022-01-10 04:15] VITALS: BP 124/98
[2022-01-10] MEDS: SODIUM BICARBONATE 150 MEQ in DEXTROSE 5%-WATER 1,000 ML IV SCH (04:45)
[2022-01-10] MEDS: DICLOFENAC SODIUM 1% 100 GM GEL [4GM] TP SCH ×2 (07:50→20:21)
[2022-01-10] MEDS: PANTOPRAZOLE SODIUM 40 MG/VIAL IVP SCH (07:51)
[2022-01-10 07:53] VITALS: BP 150/90
[2022-01-10] MEDS: LORazepam 1 MG TABLET PO PRN ×2 (07:57→20:20)
[2022-01-10 10:28] LABS: CALCIUM, TOTAL 8.3 mg/dL (8.8-10.5); CREATININE 2.05 mg/dL (0.60-1.30); POTASSIUM 4.2 mmol/L (3.5-5.1)
[2022-01-10] MEDS: SODIUM CHLORIDE 0.9% 1,000 ML IV SCH ×2 (11:56→20:22)
[2022-01-10] MEDS ORDERED: METOPROLOL TARTRATE 5 MG/5 ML VIAL IVP PRN (12:30)
[2022-01-10 15:37] VITALS: BP 142/102
[2022-01-10 15:40] VITALS: BP 152/110
[2022-01-10] MEDS ORDERED: SODIUM CHLORIDE 0.9% 250 ML IV ONE (16:03)
[2022-01-10] MEDS: CefTRIAXone 1 GM/DEXTROSE 50 ML IV SCH (16:23)
[2022-01-10 20:05] VITALS: BP 164/111
[2022-01-10] MEDS: OLANZapine 5 MG RAPDIS TABLET PO SCH (20:20)
[2022-01-10] MEDS: PROMETHAZINE HCL/CODEINE 6.25-10MG/5ML SYRUP UDCUP PO PRN (23:19)
[2022-01-11 00:01] VITALS: BP 153/109
[2022-01-11] MEDS: OLANZapine 5 MG RAPDIS TABLET PO PRN ×2 (00:31→04:32)
[2022-01-11] MEDS: LORazepam 1 MG TABLET PO PRN ×4 (00:31→16:43)
[2022-01-11] MEDS: ALBUTEROL SULFATE 2.5 MG/0.5 ML NEB SOLUTION NEB SCH ×4 (01:11→19:42)
[2022-01-11] MEDS: IPRATROPIUM BROMIDE 0.5 MG/2.5 ML NEB SOLUTION NEB SCH ×4 (01:11→19:42)
[2022-01-11 04:00] VITALS: BP 130/91
[2022-01-11 06:53] LABS: BASOPHILS % (AUTO) 0.5 % (0.0-2.0); EOSINOPHILS % (AUTO) 2.1 % (1.0-6.0); HEMATOCRIT 35.8 % (36-46); HEMOGLOBIN 11.3 g/dL (12.0-16.0); LYMPHOCYTES # (AUTO) 1.3 K/uL (1.0-4.8); LYMPHOCYTES % (AUTO) 8.1 % (22.0-44.0); MEAN CORPUSCULAR HEMOGLOBIN 24.2 pg (26.0-34.0); MEAN CORPUSCULAR HGB CONC 31.6 G/dL (31.0-37.0); MEAN CORPUSCULAR VOLUME 77 fL (80-100); MONOCYTES % (AUTO) 6.4 % (2.0-9.0); NEUTROPHILS # (AUTO) 13.2 K/uL (1.8-7.7); NEUTROPHILS % (AUTO) 82.9 % (40.0-70.0); PLATELET COUNT (AUTO) 179 K/uL (150-450); RED BLOOD CELL COUNT(AUTO) 4.68 MIL/uL (4.00-5.20); RED CELL DISTRIBUTION WIDTH 20.8 % (11.5-14.5)
[2022-01-11 07:12] LABS: CALCIUM, TOTAL 8.3 mg/dL (8.8-10.5); MAGNESIUM 1.6 mg/dL (1.80-2.40); POTASSIUM 4.3 mmol/L (3.5-5.1)
[2022-01-11] MEDS: SODIUM CHLORIDE 0.9% 1,000 ML IV SCH ×2 (07:30→17:07)
[2022-01-11] MEDS: PANTOPRAZOLE SODIUM 40 MG/VIAL IVP SCH (09:00)
[2022-01-11] MEDS: HEPARIN SODIUM,PORCINE 5,000 UNITS/ML VIAL SQ SCH ×2 (09:01→16:58)
[2022-01-11 09:49] VITALS: BP 142/110
[2022-01-11 14:13] VITALS: BP 156/118
[2022-01-11] MEDS: ATENOLOL 50 MG TABLET PO SCH (16:43)
[2022-01-11] MEDS: DICLOFENAC SODIUM 1% 100 GM GEL [4GM] TP SCH ×2 (16:43→20:47)
[2022-01-11] MEDS: CefTRIAXone 1 GM/DEXTROSE 50 ML IV SCH (16:44)
[2022-01-11 17:27] VITALS: BP 160/100
[2022-01-11 19:47] VITALS: BP 118/74
[2022-01-11] MEDS: OLANZapine 5 MG RAPDIS TABLET PO SCH (20:47)
[2022-01-12] MEDS: HEPARIN SODIUM,PORCINE 5,000 UNITS/ML VIAL SQ SCH ×3 (00:27→16:00)
[2022-01-12] MEDS: LORazepam 1 MG TABLET PO PRN ×3 (00:27→21:09)
[2022-01-12] MEDS: ALBUTEROL SULFATE 2.5 MG/0.5 ML NEB SOLUTION NEB SCH ×4 (01:42→20:16)
[2022-01-12] MEDS: IPRATROPIUM BROMIDE 0.5 MG/2.5 ML NEB SOLUTION NEB SCH ×4 (01:42→20:16)
[2022-01-12] MEDS: SODIUM CHLORIDE 0.9% 1,000 ML IV SCH ×2 (03:20→11:25)
[2022-01-12 07:17] VITALS: BP 120/83
[2022-01-12] MEDS: ATENOLOL 50 MG TABLET PO SCH (08:03)
[2022-01-12] MEDS: DICLOFENAC SODIUM 1% 100 GM GEL [4GM] TP SCH ×2 (08:04→21:11)
[2022-01-12] MEDS: PANTOPRAZOLE SODIUM 40 MG/VIAL IVP SCH (09:00)
[2022-01-12 11:07] VITALS: BP 126/84
[2022-01-12] MEDS: CefTRIAXone 1 GM/DEXTROSE 50 ML IV SCH (15:11)
[2022-01-12 16:13] VITALS: BP 136/76
[2022-01-12 20:03] VITALS: BP 120/72
[2022-01-12] MEDS: OLANZapine 5 MG RAPDIS TABLET PO SCH (21:09)
[2022-01-13] VITALS (7 sets, daily range): BP systolic 107–140; BP diastolic 62–87
[2022-01-13] MEDS: LORazepam 1 MG TABLET PO PRN ×3 (00:56→15:17)
[2022-01-13] MEDS: OLANZapine 5 MG RAPDIS TABLET PO PRN ×2 (00:56→15:17)
[2022-01-13] MEDS: HEPARIN SODIUM,PORCINE 5,000 UNITS/ML VIAL SQ SCH ×4 (00:57→23:24)
[2022-01-13] MEDS: ALBUTEROL SULFATE 2.5 MG/0.5 ML NEB SOLUTION NEB SCH ×4 (01:35→19:39)
[2022-01-13] MEDS: IPRATROPIUM BROMIDE 0.5 MG/2.5 ML NEB SOLUTION NEB SCH ×4 (01:35→19:39)
[2022-01-13] MEDS: SODIUM CHLORIDE 0.9% 1,000 ML IV SCH ×2 (06:57→09:02)
[2022-01-13 07:14] LABS: BASOPHILS % (AUTO) 0.8 % (0.0-2.0); EOSINOPHILS % (AUTO) 4.8 % (1.0-6.0); HEMATOCRIT 37.1 % (36-46); HEMOGLOBIN 11.5 g/dL (12.0-16.0); LYMPHOCYTES % (AUTO) 22.8 % (22.0-44.0); MEAN CORPUSCULAR HEMOGLOBIN 23.9 pg (26.0-34.0); MEAN CORPUSCULAR VOLUME 77 fL (80-100); MONOCYTES # (AUTO) 0.7 K/uL (0.1-1.0); MONOCYTES % (AUTO) 8.1 % (2.0-9.0); NEUTROPHILS # (AUTO) 5.7 K/uL (1.8-7.7); NEUTROPHILS % (AUTO) 63.5 % (40.0-70.0); PLATELET COUNT (AUTO) 200 K/uL (150-450); RED CELL DISTRIBUTION WIDTH 20.2 % (11.5-14.5)
[2022-01-13 07:31] LABS: CALCIUM, TOTAL 8.5 mg/dL (8.8-10.5); CREATININE 2.97 mg/dL (0.60-1.30); PHOSPHORUS 4.9 mg/dL (2.5-4.9); POTASSIUM 4.8 mmol/L (3.5-5.1)
[2022-01-13] MEDS: PANTOPRAZOLE SODIUM 40 MG/VIAL IVP SCH (08:43)
[2022-01-13] MEDS: OLANZapine 5 MG RAPDIS TABLET PO SCH ×3 (08:44→20:25)
[2022-01-13] MEDS: ATENOLOL 50 MG TABLET PO SCH (08:44)
[2022-01-13] MEDS: DICLOFENAC SODIUM 1% 100 GM GEL [4GM] TP SCH ×2 (08:45→20:25)
[2022-01-13] MEDS ORDERED: PIPERONYL BUTOXIDE/PYRETHRINS 120 ML SHAMPOO TP ONE (12:30)
[2022-01-13] MEDS: CefTRIAXone 1 GM/DEXTROSE 50 ML IV SCH (15:17)
[2022-01-13] MEDS ORDERED: LORazepam 2 MG TABLET PO ONE (15:30)
[2022-01-13] MEDS ORDERED: RISP1TAB48 PO (15:34)
[2022-01-13] MEDS ORDERED: OLANZapine 5 MG RAPDIS TABLET PO SCH (16:00)
[2022-01-13] MEDS: DIVALPROEX SODIUM 250 MG ER TABLET PO SCH ×2 (17:00→20:25)
[2022-01-14] MEDS: IPRATROPIUM BROMIDE 0.5 MG/2.5 ML NEB SOLUTION NEB SCH ×4 (02:06→19:57)
[2022-01-14] MEDS: ALBUTEROL SULFATE 2.5 MG/0.5 ML NEB SOLUTION NEB SCH ×4 (02:06→19:57)
[2022-01-14 06:15] VITALS: BP 106/72
[2022-01-14 07:55] VITALS: BP 105/69
[2022-01-14] MEDS: ATENOLOL 50 MG TABLET PO SCH ×2 (09:00→09:42)
[2022-01-14 09:05] LABS: BASOPHILS % (AUTO) 1.2 % (0.0-2.0); EOSINOPHILS % (AUTO) 5.5 % (1.0-6.0); HEMATOCRIT 40.1 % (36-46); HEMOGLOBIN 12.6 g/dL (12.0-16.0); LYMPHOCYTES # (AUTO) 1.9 K/uL (1.0-4.8); LYMPHOCYTES % (AUTO) 18.9 % (22.0-44.0); MEAN CORPUSCULAR HEMOGLOBIN 23.9 pg (26.0-34.0); MEAN CORPUSCULAR HGB CONC 31.3 G/dL (31.0-37.0); MEAN CORPUSCULAR VOLUME 76 fL (80-100); MONOCYTES # (AUTO) 0.9 K/uL (0.1-1.0); MONOCYTES % (AUTO) 8.7 % (2.0-9.0); NEUTROPHILS # (AUTO) 6.5 K/uL (1.8-7.7); NEUTROPHILS % (AUTO) 65.7 % (40.0-70.0); PLATELET COUNT (AUTO) 288 K/uL (150-450); RED BLOOD CELL COUNT(AUTO) 5.26 MIL/uL (4.00-5.20); RED CELL DISTRIBUTION WIDTH 20.5 % (11.5-14.5)
[2022-01-14 09:20] LABS: CALCIUM, TOTAL 8.5 mg/dL (8.8-10.5); CREATININE 3.64 mg/dL (0.60-1.30); MAGNESIUM 1.8 mg/dL (1.80-2.40); PHOSPHORUS 5.9 mg/dL (2.5-4.9); POTASSIUM 5.1 mmol/L (3.5-5.1)
[2022-01-14] MEDS: HEPARIN SODIUM,PORCINE 5,000 UNITS/ML VIAL SQ SCH ×3 (09:41→23:32)
[2022-01-14] MEDS: PANTOPRAZOLE SODIUM 40 MG/VIAL IVP SCH (09:41)
[2022-01-14] MEDS: OLANZapine 5 MG RAPDIS TABLET PO SCH ×4 (09:42→20:42)
[2022-01-14] MEDS: DICLOFENAC SODIUM 1% 100 GM GEL [4GM] TP SCH ×2 (09:42→20:43)
[2022-01-14] MEDS: DIVALPROEX SODIUM 250 MG ER TABLET PO SCH ×4 (09:42→20:42)
[2022-01-14 11:55] VITALS: BP 104/77
[2022-01-14 15:55] VITALS: BP 111/70
[2022-01-14] MEDS: SODIUM BICARBONATE 75 MEQ in SODIUM CHLORIDE 0.45% 1,000 ML IV SCH (18:59)
[2022-01-14 19:24] VITALS: BP 121/77
[2022-01-14] MEDS: LORazepam 2 MG TABLET PO PRN (23:31)
[2022-01-14 23:45] VITALS: BP 115/63
[2022-01-15] MEDS: OLANZapine 5 MG RAPDIS TABLET PO PRN (01:52)
[2022-01-15] MEDS: ALBUTEROL SULFATE 2.5 MG/0.5 ML NEB SOLUTION NEB SCH ×4 (03:52→19:26)
[2022-01-15] MEDS: IPRATROPIUM BROMIDE 0.5 MG/2.5 ML NEB SOLUTION NEB SCH ×4 (03:52→19:26)
[2022-01-15 05:52] VITALS: BP 99/57
[2022-01-15] MEDS: LORazepam 2 MG TABLET PO PRN ×2 (06:58→23:25)
[2022-01-15] MEDS: PANTOPRAZOLE SODIUM 40 MG/VIAL IVP SCH (08:06)
[2022-01-15] MEDS: HEPARIN SODIUM,PORCINE 5,000 UNITS/ML VIAL SQ SCH ×3 (08:06→23:24)
[2022-01-15] MEDS: SODIUM BICARBONATE 75 MEQ in SODIUM CHLORIDE 0.45% 1,000 ML IV SCH ×2 (08:06→21:36)
[2022-01-15] MEDS: DIVALPROEX SODIUM 250 MG ER TABLET PO SCH ×4 (08:07→20:14)
[2022-01-15] MEDS: OLANZapine 5 MG RAPDIS TABLET PO SCH ×4 (08:07→20:14)
[2022-01-15] MEDS: ATENOLOL 25 MG TABLET PO SCH (08:07)
[2022-01-15 08:13] VITALS: BP 116/94
[2022-01-15] MEDS: DICLOFENAC SODIUM 1% 100 GM GEL [4GM] TP SCH ×2 (09:48→20:15)
[2022-01-15 12:21] VITALS: BP 105/73
[2022-01-15 16:40] VITALS: BP 112/78
[2022-01-15 20:07] VITALS: BP 135/91
[2022-01-16 00:08] VITALS: BP 116/84
[2022-01-16] MEDS: ALBUTEROL SULFATE 2.5 MG/0.5 ML NEB SOLUTION NEB SCH ×4 (01:23→20:10)
[2022-01-16] MEDS: IPRATROPIUM BROMIDE 0.5 MG/2.5 ML NEB SOLUTION NEB SCH ×4 (01:23→20:10)
[2022-01-16 04:15] VITALS: BP 119/82
[2022-01-16 07:45] VITALS: BP 142/83
[2022-01-16 09:12] LABS: CALCIUM, TOTAL 8.3 mg/dL (8.8-10.5); CREATININE 3.34 mg/dL (0.60-1.30); PHOSPHORUS 4.7 mg/dL (2.5-4.9); POTASSIUM 4.3 mmol/L (3.5-5.1)
[2022-01-16] MEDS: PANTOPRAZOLE SODIUM 40 MG/VIAL IVP SCH (09:28)
[2022-01-16] MEDS: HEPARIN SODIUM,PORCINE 5,000 UNITS/ML VIAL SQ SCH ×3 (09:28→23:09)
[2022-01-16] MEDS: DICLOFENAC SODIUM 1% 100 GM GEL [4GM] TP SCH ×2 (09:29→20:06)
[2022-01-16] MEDS: ATENOLOL 25 MG TABLET PO SCH (09:29)
[2022-01-16] MEDS: DIVALPROEX SODIUM 250 MG ER TABLET PO SCH ×4 (09:29→20:05)
[2022-01-16] MEDS: OLANZapine 5 MG RAPDIS TABLET PO SCH ×4 (09:29→20:05)
[2022-01-16] MEDS: SODIUM BICARBONATE 75 MEQ in SODIUM CHLORIDE 0.45% 1,000 ML IV SCH (12:51)
[2022-01-16 12:58] VITALS: BP 133/87
[2022-01-16 16:11] LABS: C-REACTIVE PROTEIN QUANT 5.19 mg/dL (0.00-0.30); THYROID STIMULATING HORMONE 11.97 uIU/mL (0.36-3.74)
[2022-01-16 16:15] VITALS: BP 134/93
[2022-01-16 20:24] VITALS: BP 151/77
[2022-01-16] MEDS: LORazepam 2 MG TABLET PO PRN (23:09)
[2022-01-17] VITALS (7 sets, daily range): BP systolic 132–154; BP diastolic 74–105
[2022-01-17] MEDS: IPRATROPIUM BROMIDE 0.5 MG/2.5 ML NEB SOLUTION NEB SCH ×5 (02:52→19:38)
[2022-01-17] MEDS: ALBUTEROL SULFATE 2.5 MG/0.5 ML NEB SOLUTION NEB SCH ×5 (02:52→19:37)
[2022-01-17] MEDS: SODIUM BICARBONATE 75 MEQ in SODIUM CHLORIDE 0.45% 1,000 ML IV SCH (02:57)
[2022-01-17 09:14] LABS: CALCIUM, TOTAL 8.7 mg/dL (8.8-10.5); CREATININE 2.93 mg/dL (0.60-1.30); POTASSIUM 4.2 mmol/L (3.5-5.1)
[2022-01-17] MEDS: HEPARIN SODIUM,PORCINE 5,000 UNITS/ML VIAL SQ SCH ×3 (09:14→23:16)
[2022-01-17] MEDS: ATENOLOL 25 MG TABLET PO SCH (09:15)
[2022-01-17] MEDS: DIVALPROEX SODIUM 250 MG ER TABLET PO SCH ×4 (09:15→20:43)
[2022-01-17] MEDS: OLANZapine 5 MG RAPDIS TABLET PO SCH ×4 (09:15→20:43)
[2022-01-17] MEDS: DICLOFENAC SODIUM 1% 100 GM GEL [4GM] TP SCH ×2 (09:16→20:44)
[2022-01-17] MEDS: PANTOPRAZOLE SODIUM 40 MG/VIAL IVP SCH (09:16)
[2022-01-17] MEDS: LORazepam 2 MG TABLET PO PRN (23:16)
[2022-01-18] MEDS: IPRATROPIUM BROMIDE 0.5 MG/2.5 ML NEB SOLUTION NEB SCH ×4 (01:36→19:18)
[2022-01-18] MEDS: ALBUTEROL SULFATE 2.5 MG/0.5 ML NEB SOLUTION NEB SCH ×4 (01:36→19:18)
[2022-01-18 06:09] VITALS: BP 147/97
[2022-01-18 07:46] LABS: CALCIUM, TOTAL 8.7 mg/dL (8.8-10.5); CREATININE 2.75 mg/dL (0.60-1.30); POTASSIUM 4.3 mmol/L (3.5-5.1)
[2022-01-18] MEDS: ATENOLOL 25 MG TABLET PO SCH (07:49)
[2022-01-18] MEDS: HEPARIN SODIUM,PORCINE 5,000 UNITS/ML VIAL SQ SCH ×2 (07:49→16:05)
[2022-01-18] MEDS: PANTOPRAZOLE SODIUM 40 MG/VIAL IVP SCH (07:49)
[2022-01-18] MEDS: DIVALPROEX SODIUM 250 MG ER TABLET PO SCH ×4 (07:49→20:52)
[2022-01-18] MEDS: OLANZapine 5 MG RAPDIS TABLET PO SCH ×4 (07:51→20:52)
[2022-01-18 08:03] VITALS: BP 168/105
[2022-01-18] MEDS: DICLOFENAC SODIUM 1% 100 GM GEL [4GM] TP SCH ×2 (09:04→21:05)
[2022-01-18 12:13] VITALS: BP 150/100
[2022-01-18 15:25] VITALS: BP 146/102
[2022-01-18] MEDS: LORazepam 2 MG TABLET PO PRN (18:50)
[2022-01-18] MEDS ORDERED: PIPERONYL BUTOXIDE/PYRETHRINS 120 ML SHAMPOO TP ONE (19:45)
[2022-01-18 19:52] VITALS: BP 153/104
[2022-01-18] MEDS: METOPROLOL TARTRATE 25 MG TABLET PO SCH (20:54)
[2022-01-19] MEDS: HEPARIN SODIUM,PORCINE 5,000 UNITS/ML VIAL SQ SCH ×3 (00:05→16:46)
[2022-01-19] MEDS: LORazepam 2 MG TABLET PO PRN ×2 (00:06→21:00)
[2022-01-19] MEDS: IPRATROPIUM BROMIDE 0.5 MG/2.5 ML NEB SOLUTION NEB SCH ×4 (01:38→19:49)
[2022-01-19] MEDS: ALBUTEROL SULFATE 2.5 MG/0.5 ML NEB SOLUTION NEB SCH ×4 (01:38→19:49)
[2022-01-19 02:06] VITALS: BP 139/96
[2022-01-19 04:00] VITALS: BP 145/106
[2022-01-19 08:00] VITALS: BP 141/93
[2022-01-19] MEDS: PANTOPRAZOLE SODIUM 40 MG/VIAL IVP SCH (08:51)
[2022-01-19] MEDS: METOPROLOL TARTRATE 25 MG TABLET PO SCH ×2 (08:51→21:00)
[2022-01-19] MEDS: DIVALPROEX SODIUM 250 MG ER TABLET PO SCH ×5 (08:51→21:00)
[2022-01-19] MEDS: DICLOFENAC SODIUM 1% 100 GM GEL [4GM] TP SCH ×2 (08:52→21:02)
[2022-01-19] MEDS: OLANZapine 5 MG RAPDIS TABLET PO SCH ×4 (08:52→21:00)
[2022-01-19 08:54] LABS: EOSINOPHILS % (AUTO) 7.6 % (1.0-6.0); HEMOGLOBIN 11.8 g/dL (12.0-16.0); LYMPHOCYTES # (AUTO) 1.6 K/uL (1.0-4.8); LYMPHOCYTES % (AUTO) 23.9 % (22.0-44.0); MEAN CORPUSCULAR HEMOGLOBIN 23.7 pg (26.0-34.0); MEAN CORPUSCULAR VOLUME 77 fL (80-100); MONOCYTES # (AUTO) 0.6 K/uL (0.1-1.0); MONOCYTES % (AUTO) 9.3 % (2.0-9.0); NEUTROPHILS # (AUTO) 3.8 K/uL (1.8-7.7); NEUTROPHILS % (AUTO) 58.2 % (40.0-70.0); PLATELET COUNT (AUTO) 206 K/uL (150-450); RED BLOOD CELL COUNT(AUTO) 4.96 MIL/uL (4.00-5.20); RED CELL DISTRIBUTION WIDTH 21.1 % (11.5-14.5)
[2022-01-19 08:55] LABS: CALCIUM, TOTAL 8.9 mg/dL (8.8-10.5); CREATININE 2.62 mg/dL (0.60-1.30); MAGNESIUM 1.9 mg/dL (1.80-2.40); PHOSPHORUS 4.2 mg/dL (2.5-4.9); POTASSIUM 4.2 mmol/L (3.5-5.1)
[2022-01-19] MEDS: DEXTROSE 5%-WATER 1,000 ML IV SCH (12:15)
[2022-01-19 16:00] VITALS: BP 148/107
[2022-01-19] MEDS ORDERED: SODIUM CHLORIDE 0.9% 1,000 ML ONE (16:24)
[2022-01-19 19:53] VITALS: BP 139/99
[2022-01-19 23:41] VITALS: BP 144/97
[2022-01-20] MEDS: HEPARIN SODIUM,PORCINE 5,000 UNITS/ML VIAL SQ SCH ×3 (00:19→16:44)
[2022-01-20] MEDS: ALBUTEROL SULFATE 2.5 MG/0.5 ML NEB SOLUTION NEB SCH ×4 (01:40→19:40)
[2022-01-20] MEDS: IPRATROPIUM BROMIDE 0.5 MG/2.5 ML NEB SOLUTION NEB SCH ×4 (01:40→19:39)
[2022-01-20 04:15] VITALS: BP 137/98
[2022-01-20 07:34] VITALS: BP 148/103
[2022-01-20 07:34] LABS: BASOPHILS % (AUTO) 1.3 % (0.0-2.0); EOSINOPHILS % (AUTO) 9.1 % (1.0-6.0); HEMATOCRIT 39.8 % (36-46); HEMOGLOBIN 12.2 g/dL (12.0-16.0); LYMPHOCYTES # (AUTO) 1.4 K/uL (1.0-4.8); LYMPHOCYTES % (AUTO) 27.9 % (22.0-44.0); MEAN CORPUSCULAR HEMOGLOBIN 23.6 pg (26.0-34.0); MEAN CORPUSCULAR HGB CONC 30.6 G/dL (31.0-37.0); MEAN CORPUSCULAR VOLUME 77 fL (80-100); MONOCYTES # (AUTO) 0.6 K/uL (0.1-1.0); MONOCYTES % (AUTO) 11.3 % (2.0-9.0); NEUTROPHILS # (AUTO) 2.5 K/uL (1.8-7.7); NEUTROPHILS % (AUTO) 50.4 % (40.0-70.0); PLATELET COUNT (AUTO) 179 K/uL (150-450); RED BLOOD CELL COUNT(AUTO) 5.15 MIL/uL (4.00-5.20); RED CELL DISTRIBUTION WIDTH 20.6 % (11.5-14.5)
[2022-01-20 07:37] LABS: CALCIUM, TOTAL 8.9 mg/dL (8.8-10.5); CREATININE 2.44 mg/dL (0.60-1.30); POTASSIUM 4.3 mmol/L (3.5-5.1)
[2022-01-20 07:42] LABS: PHOSPHORUS 4.3 mg/dL (2.5-4.9)
[2022-01-20] MEDS: PANTOPRAZOLE SODIUM 40 MG/VIAL IVP SCH (08:41)
[2022-01-20] MEDS: OLANZapine 5 MG RAPDIS TABLET PO SCH ×4 (08:42→21:36)
[2022-01-20] MEDS: METOPROLOL TARTRATE 25 MG TABLET PO SCH ×2 (08:42→21:35)
[2022-01-20] MEDS: DIVALPROEX SODIUM 250 MG ER TABLET PO SCH ×4 (08:42→21:35)
[2022-01-20] MEDS: DEXTROSE 5%-WATER 1,000 ML IV SCH ×2 (09:01→22:01)
[2022-01-20] MEDS: DICLOFENAC SODIUM 1% 100 GM GEL [4GM] TP SCH ×2 (09:02→21:36)
[2022-01-20] MEDS: ALBUTEROL SULFATE 2.5 MG/0.5 ML NEB SOLUTION NEB PRN (10:58)
[2022-01-20] MEDS: IPRATROPIUM BROMIDE 0.5 MG/2.5 ML NEB SOLUTION NEB PRN (10:58)
[2022-01-20 13:40] VITALS: BP 138/92
[2022-01-20 15:52] VITALS: BP 142/97
[2022-01-20] MEDS: AmLODIPine BESYLATE 5 MG TABLET PO SCH (16:43)
[2022-01-20 19:45] VITALS: BP 145/85
[2022-01-21] VITALS (7 sets, daily range): BP systolic 138–163; BP diastolic 98–110
[2022-01-21] MEDS: HEPARIN SODIUM,PORCINE 5,000 UNITS/ML VIAL SQ SCH ×3 (00:02→16:27)
[2022-01-21] MEDS: IPRATROPIUM BROMIDE 0.5 MG/2.5 ML NEB SOLUTION NEB SCH ×4 (02:36→19:53)
[2022-01-21] MEDS: ALBUTEROL SULFATE 2.5 MG/0.5 ML NEB SOLUTION NEB SCH ×4 (02:36→19:54)
[2022-01-21] MEDS: METOPROLOL TARTRATE 25 MG TABLET PO SCH ×2 (09:00→21:00)
[2022-01-21] MEDS: DIVALPROEX SODIUM 250 MG ER TABLET PO SCH ×3 (09:00→16:00)
[2022-01-21] MEDS: OLANZapine 5 MG RAPDIS TABLET PO SCH ×4 (09:00→21:00)
[2022-01-21] MEDS: AmLODIPine BESYLATE 5 MG TABLET PO SCH (09:00)
[2022-01-21] MEDS: PANTOPRAZOLE SODIUM 40 MG/VIAL IVP SCH (09:00)
[2022-01-21] MEDS: DICLOFENAC SODIUM 1% 100 GM GEL [4GM] TP SCH ×3 (09:00→22:24)
[2022-01-21 09:15] LABS: CALCIUM, TOTAL 8.8 mg/dL (8.8-10.5); CREATININE 2.4 mg/dL (0.60-1.30); MAGNESIUM 2.1 mg/dL (1.80-2.40); PHOSPHORUS 4.2 mg/dL (2.5-4.9); POTASSIUM 5.2 mmol/L (3.5-5.1)
[2022-01-21] MEDS ORDERED: DEXTROSE 50%-WATER 25 GM/50 ML SYRINGE IVP ONE (09:36)
[2022-01-21 09:56] LABS: GLUCOMETER DEV NAME(LOC) 5S.1B; GLUCOSE,POINT OF CARE 86 MG/DL (70-110)
[2022-01-21] MEDS ORDERED: IOHEXOL 350 MG/ML 100 ML VIAL ONE (10:16)
[2022-01-21 12:11] LABS: ALBUMIN 2.1 g/dL (3.4-5.0); BILIRUBIN,TOTAL 1.5 mg/dL (0.1-1.0); CALCIUM, TOTAL 8.9 mg/dL (8.8-10.5); CREATININE 2.5 mg/dL (0.60-1.30); POTASSIUM 4.4 mmol/L (3.5-5.1); TOTAL PROTEIN, SERUM 7.4 g/dL (6.4-8.2)
[2022-01-21 12:13] LABS: BASOPHILS % (AUTO) 0.8 % (0.0-2.0); EOSINOPHILS % (AUTO) 7.4 % (1.0-6.0); HEMATOCRIT 41.4 % (36-46); HEMOGLOBIN 12.2 g/dL (12.0-16.0); LYMPHOCYTES # (AUTO) 1.3 K/uL (1.0-4.8); LYMPHOCYTES % (AUTO) 24.4 % (22.0-44.0); MEAN CORPUSCULAR HEMOGLOBIN 23.6 pg (26.0-34.0); MEAN CORPUSCULAR HGB CONC 29.4 G/dL (31.0-37.0); MEAN CORPUSCULAR VOLUME 80 fL (80-100); MONOCYTES # (AUTO) 0.4 K/uL (0.1-1.0); MONOCYTES % (AUTO) 7.4 % (2.0-9.0); NEUTROPHILS # (AUTO) 3.1 K/uL (1.8-7.7); PLATELET COUNT (AUTO) 140 K/uL (150-450); RED BLOOD CELL COUNT(AUTO) 5.16 MIL/uL (4.00-5.20); RED CELL DISTRIBUTION WIDTH 21.8 % (11.5-14.5)
[2022-01-21 13:00] LABS: INR 1.2 (0.9-1.1); PROTHROMBIN TIME 12.6 SEC (9.4-11.6)
[2022-01-21] MEDS: ALBUTEROL SULFATE 2.5 MG/0.5 ML NEB SOLUTION NEB PRN (13:11)
[2022-01-21] MEDS: IPRATROPIUM BROMIDE 0.5 MG/2.5 ML NEB SOLUTION NEB PRN (13:13)
[2022-01-21 13:31] LABS: BILIRUBIN,URINE PRELIM. POSITIVE (NEGATIVE); GLUCOSE, URINE (UA) NEGATIVE (NEGATIVE); OCCULT BLOOD,URINE MODERATE (NEGATIVE); PH,URINE 6.5 (5.0-8.0); PROTEIN,URINE SEE CONFIRM (NEGATIVE)
[2022-01-21 13:35] LABS: KETONES,URINE NEGATIVE (NEGATIVE); LEUKOCYTE ESTERASE ,URINE SMALL (NEGATIVE); NITRATE,URINE NEGATIVE (NEGATIVE)
[2022-01-21 13:37] LABS: APPEARANCE,URINE HAZY (CLEAR)
[2022-01-21 13:38] LABS: BACTERIA,URINE Few /HPF (None Seen); RBC,URINE 26-50 /HPF (0-2); RENAL EPITHELIAL CELLS,URINE Rare /LPF (None Seen); SULFOSALICYLIC ACID,URINE 2+ (Negative)
[2022-01-21 13:39] LABS: SQUAMOUS EPITHELIAL CELL,UR Few /LPF (None Seen)
[2022-01-21] MEDS: HydrALAZINE HCL 20 MG/ML VIAL IVP PRN (16:28)
[2022-01-21] MEDS: VALPROATE SODIUM 500 MG in DEXTROSE 5%-WATER 50 ML IV SCH (23:48)
[2022-01-22] VITALS (7 sets, daily range): BP systolic 121–155; BP diastolic 76–123
[2022-01-22] MEDS: HEPARIN SODIUM,PORCINE 5,000 UNITS/ML VIAL SQ SCH ×4 (00:33→23:36)
[2022-01-22] MEDS: DEXTROSE 5%-WATER 1,000 ML IV SCH ×2 (00:33→20:29)
[2022-01-22] MEDS: IPRATROPIUM BROMIDE 0.5 MG/2.5 ML NEB SOLUTION NEB SCH ×4 (01:29→20:14)
[2022-01-22] MEDS: ALBUTEROL SULFATE 2.5 MG/0.5 ML NEB SOLUTION NEB SCH ×4 (01:29→20:15)
[2022-01-22] MEDS: HydrALAZINE HCL 20 MG/ML VIAL IVP PRN ×2 (04:44→09:27)
[2022-01-22 05:51] LABS: CREATININE 2.18 mg/dL (0.60-1.30); MAGNESIUM 1.8 mg/dL (1.80-2.40); PHOSPHORUS 3.6 mg/dL (2.5-4.9)
[2022-01-22] MEDS: PANTOPRAZOLE SODIUM 40 MG/VIAL IVP SCH (08:21)
[2022-01-22] MEDS: ETHYL ALCOHOL 62% ANTISEPTIC NASAL INHALANT 0.6 ML AMPUL NASAL SCH ×2 (08:21→20:33)
[2022-01-22] MEDS: AmLODIPine BESYLATE 5 MG TABLET PO SCH ×2 (09:00→20:37)
[2022-01-22] MEDS: METOPROLOL TARTRATE 25 MG TABLET PO SCH ×2 (09:00→20:35)
[2022-01-22] MEDS: OLANZapine 5 MG RAPDIS TABLET PO SCH ×4 (09:18→20:36)
[2022-01-22] MEDS: DICLOFENAC SODIUM 1% 100 GM GEL [4GM] TP SCH ×2 (09:26→20:34)
[2022-01-22] MEDS: VALPROATE SODIUM 500 MG in DEXTROSE 5%-WATER 50 ML IV SCH ×2 (11:59→23:37)
[2022-01-23] VITALS (7 sets, daily range): BP systolic 125–148; BP diastolic 83–106
[2022-01-23] MEDS: PROMETHAZINE HCL/CODEINE 6.25-10MG/5ML SYRUP UDCUP PO PRN (01:30)
[2022-01-23] MEDS: IPRATROPIUM BROMIDE 0.5 MG/2.5 ML NEB SOLUTION NEB SCH ×4 (02:08→19:58)
[2022-01-23] MEDS: ALBUTEROL SULFATE 2.5 MG/0.5 ML NEB SOLUTION NEB SCH ×4 (02:08→19:58)
[2022-01-23 06:21] LABS: CREATININE 2.08 mg/dL (0.60-1.30); POTASSIUM 4.1 mmol/L (3.5-5.1)
[2022-01-23] MEDS: PANTOPRAZOLE SODIUM 40 MG/VIAL IVP SCH (08:56)
[2022-01-23] MEDS: AmLODIPine BESYLATE 5 MG TABLET PO SCH ×2 (08:57→20:58)
[2022-01-23] MEDS: ETHYL ALCOHOL 62% ANTISEPTIC NASAL INHALANT 0.6 ML AMPUL NASAL SCH ×2 (08:57→20:58)
[2022-01-23] MEDS: METOPROLOL TARTRATE 25 MG TABLET PO SCH ×2 (08:57→20:58)
[2022-01-23] MEDS: HEPARIN SODIUM,PORCINE 5,000 UNITS/ML VIAL SQ SCH ×3 (08:57→23:19)
[2022-01-23] MEDS: OLANZapine 5 MG RAPDIS TABLET PO SCH ×4 (08:57→20:58)
[2022-01-23] MEDS: DICLOFENAC SODIUM 1% 100 GM GEL [4GM] TP SCH ×2 (09:00→21:00)
[2022-01-23] MEDS: LORazepam 2 MG TABLET PO PRN (09:50)
[2022-01-23] MEDS ORDERED: FUROSEMIDE 40 MG/4 ML VIAL IVP ONE (11:45)
[2022-01-23] MEDS: VALPROATE SODIUM 500 MG in DEXTROSE 5%-WATER 50 ML IV SCH ×2 (12:05→23:14)
[2022-01-24] MEDS: ALBUTEROL SULFATE 2.5 MG/0.5 ML NEB SOLUTION NEB SCH ×4 (01:07→19:51)
[2022-01-24] MEDS: IPRATROPIUM BROMIDE 0.5 MG/2.5 ML NEB SOLUTION NEB SCH ×4 (01:07→19:51)
[2022-01-24 04:08] VITALS: BP 168/80
[2022-01-24 05:57] LABS: CALCIUM, TOTAL 8.6 mg/dL (8.8-10.5); CREATININE 2.11 mg/dL (0.60-1.30); POTASSIUM 3.9 mmol/L (3.5-5.1)
[2022-01-24] MEDS: DEXTROSE 50%-WATER 25 GM/50 ML SYRINGE IVP PRN ×2 (06:21→10:23)
[2022-01-24 06:57] LABS: THYROID STIMULATING HORMONE 12.52 uIU/mL (0.36-3.74)
[2022-01-24 08:08] VITALS: BP 139/88
[2022-01-24 08:16] LABS: GLUCOMETER DEV NAME(LOC) 5S.2B; GLUCOSE,POINT OF CARE 227 MG/DL (70-110)
[2022-01-24] MEDS ORDERED: FUROSEMIDE 40 MG/4 ML VIAL IVP SCH (09:00)
[2022-01-24] MEDS: HEPARIN SODIUM,PORCINE 5,000 UNITS/ML VIAL SQ SCH ×3 (09:31→23:26)
[2022-01-24] MEDS: METOPROLOL TARTRATE 25 MG TABLET PO SCH ×2 (09:32→21:22)
[2022-01-24] MEDS: PANTOPRAZOLE SODIUM 40 MG/VIAL IVP SCH (09:32)
[2022-01-24] MEDS: ETHYL ALCOHOL 62% ANTISEPTIC NASAL INHALANT 0.6 ML AMPUL NASAL SCH ×2 (09:34→21:21)
[2022-01-24] MEDS: AmLODIPine BESYLATE 5 MG TABLET PO SCH ×2 (09:36→21:21)
[2022-01-24] MEDS: OLANZapine 5 MG RAPDIS TABLET PO SCH ×4 (09:36→21:21)
[2022-01-24 10:46] LABS: GLUCOMETER DEV NAME(LOC) 5S.1B; GLUCOSE,POINT OF CARE 63 MG/DL (70-110)
[2022-01-24 10:46] LABS: GLUCOMETER DEV NAME(LOC) 5S.1B; GLUCOSE,POINT OF CARE 53 MG/DL (70-110)
[2022-01-24] MEDS: VALPROATE SODIUM 500 MG in DEXTROSE 5%-WATER 50 ML IV SCH ×2 (10:59→23:24)
[2022-01-24] MEDS: DICLOFENAC SODIUM 1% 100 GM GEL [4GM] TP SCH ×2 (11:01→21:23)
[2022-01-24 11:44] VITALS: BP 149/110
[2022-01-24] MEDS: DEXTROSE 10%-WATER 1,000 ML IV SCH (14:55)
[2022-01-24 14:57] VITALS: BP 158/84
[2022-01-24] MEDS ORDERED: MIDAZOLAM HCL 2 MG/2 ML VIAL ONE ×2 (15:24→16:18)
[2022-01-24] MEDS ORDERED: NALOXONE HCL 0.4 MG/ML VIAL ONE (15:24)
[2022-01-24] MEDS ORDERED: FentaNYL CITRATE PF 100 MCG/2 ML VIAL ONE ×2 (15:24→16:18)
[2022-01-24] MEDS ORDERED: FLUMAZENIL 0.1 MG/ML 5 ML VIAL IVP ONE (15:24)
[2022-01-24 16:00] VITALS: BP 113/76
[2022-01-24 17:23] LABS: SPECIMENTYPE,BODY FLUID THORACENTESIS
[2022-01-24] MEDS ORDERED: FentaNYL CITRATE PF 100 MCG/2 ML VIAL IVP ONE ×4 (18:00)
[2022-01-24] MEDS ORDERED: MIDAZOLAM HCL 2 MG/2 ML VIAL IVP ONE ×2 (18:00)
[2022-01-24 19:37] VITALS: BP 134/86
[2022-01-24 19:55] LABS: GLUCOMETER DEV NAME(LOC) 5S.2B; GLUCOSE,POINT OF CARE 99 MG/DL (70-110)
[2022-01-24 23:07] LABS: APPEARANCE,SPUN,BODY FLUID CLEAR (CLEAR); APPEARANCE,UNSPUN,BODY FLUID CLOUDY (CLEAR)
[2022-01-24 23:08] LABS: COLOR,BODY FLUID YELLOW (LT YELLOW); PH, BODY FLUID 8; TOTAL VOLUME,BODY FLUID 1500 mL; WBC, BODY FLUID 3.75 /cu. mm.
[2022-01-24 23:25] LABS: BASOPHILS,BODY FLUID 0 %; EOSINOPHILS,BF (ANAL) 0 %; LYMPHOCYTES,BODY FLUID 48 %; MONOCYTES,BODY FLUID 8 %; NEUTROPHILS,BODY FLUID 42 %; OTHER CELLS,BODY FLUID 2
[2022-01-25 00:08] VITALS: BP 128/75
[2022-01-25] MEDS: IPRATROPIUM BROMIDE 0.5 MG/2.5 ML NEB SOLUTION NEB SCH ×4 (01:16→20:00)
[2022-01-25] MEDS: ALBUTEROL SULFATE 2.5 MG/0.5 ML NEB SOLUTION NEB SCH ×4 (01:16→20:00)
[2022-01-25 02:31] LABS: GLUCOMETER DEV NAME(LOC) 5S.1B; GLUCOSE,POINT OF CARE 65 MG/DL (70-110)
[2022-01-25 02:31] LABS: GLUCOMETER DEV NAME(LOC) 5S.1B; GLUCOSE,POINT OF CARE 73 MG/DL (70-110)
[2022-01-25 06:56] VITALS: BP 126/74
[2022-01-25 07:53] VITALS: BP 129/82
[2022-01-25] MEDS: DICLOFENAC SODIUM 1% 100 GM GEL [4GM] TP SCH ×2 (09:00→20:46)
[2022-01-25] MEDS: PANTOPRAZOLE SODIUM 40 MG/VIAL IVP SCH (10:14)
[2022-01-25] MEDS: AmLODIPine BESYLATE 5 MG TABLET PO SCH ×2 (10:14→20:45)
[2022-01-25] MEDS: ETHYL ALCOHOL 62% ANTISEPTIC NASAL INHALANT 0.6 ML AMPUL NASAL SCH ×2 (10:15→21:00)
[2022-01-25] MEDS: METOPROLOL TARTRATE 25 MG TABLET PO SCH ×2 (10:15→20:45)
[2022-01-25] MEDS: FUROSEMIDE 40 MG/4 ML VIAL IVP SCH (10:16)
[2022-01-25] MEDS: HEPARIN SODIUM,PORCINE 5,000 UNITS/ML VIAL SQ SCH ×3 (10:16→23:37)
[2022-01-25] MEDS: OLANZapine 5 MG RAPDIS TABLET PO SCH ×4 (10:17→20:45)
[2022-01-25 11:33] VITALS: BP 122/75
[2022-01-25] MEDS: VALPROATE SODIUM 500 MG in DEXTROSE 5%-WATER 50 ML IV SCH ×2 (12:37→23:37)
[2022-01-25] MEDS: DEXTROSE 10%-WATER 1,000 ML IV SCH (13:12)
[2022-01-25 16:02] VITALS: BP 124/68
[2022-01-26 00:20] VITALS: BP 145/75
[2022-01-26] MEDS: ALBUTEROL SULFATE 2.5 MG/0.5 ML NEB SOLUTION NEB SCH ×4 (02:00→20:00)
[2022-01-26] MEDS: IPRATROPIUM BROMIDE 0.5 MG/2.5 ML NEB SOLUTION NEB SCH ×4 (02:00→20:00)
[2022-01-26 05:16] LABS: GLUCOMETER DEV NAME(LOC) 5S.2B; GLUCOSE,POINT OF CARE 100 MG/DL (70-110)
[2022-01-26 05:16] LABS: GLUCOMETER DEV NAME(LOC) 5S.2B; GLUCOSE,POINT OF CARE 115 MG/DL (70-110)
[2022-01-26] MEDS: DEXTROSE 10%-WATER 1,000 ML IV SCH (06:07)
[2022-01-26 06:42] LABS: BASOPHILS % (AUTO) 0.6 % (0.0-2.0); EOSINOPHILS % (AUTO) 7.2 % (1.0-6.0); HEMOGLOBIN 13.7 g/dL (12.0-16.0); LYMPHOCYTES # (AUTO) 1.4 K/uL (1.0-4.8); LYMPHOCYTES % (AUTO) 20.6 % (22.0-44.0); MEAN CORPUSCULAR HEMOGLOBIN 23.8 pg (26.0-34.0); MEAN CORPUSCULAR VOLUME 75 fL (80-100); MONOCYTES # (AUTO) 1.1 K/uL (0.1-1.0); MONOCYTES % (AUTO) 16.1 % (2.0-9.0); NEUTROPHILS # (AUTO) 3.7 K/uL (1.8-7.7); NEUTROPHILS % (AUTO) 55.5 % (40.0-70.0); PLATELET COUNT (AUTO) 81 K/uL (150-450); RED BLOOD CELL COUNT(AUTO) 5.77 MIL/uL (4.00-5.20); RED CELL DISTRIBUTION WIDTH 21.5 % (11.5-14.5)
[2022-01-26 06:55] LABS: CALCIUM, TOTAL 8.4 mg/dL (8.8-10.5); CREATININE 2.33 mg/dL (0.60-1.30); MAGNESIUM 1.5 mg/dL (1.80-2.40); PHOSPHORUS 3.2 mg/dL (2.5-4.9); POTASSIUM 3.5 mmol/L (3.5-5.1)
[2022-01-26] MEDS: HEPARIN SODIUM,PORCINE 5,000 UNITS/ML VIAL SQ SCH ×3 (08:00→23:01)
[2022-01-26] MEDS: METOPROLOL TARTRATE 25 MG TABLET PO SCH ×2 (09:22→20:26)
[2022-01-26] MEDS: OLANZapine 5 MG RAPDIS TABLET PO SCH ×4 (09:22→20:26)
[2022-01-26] MEDS: FUROSEMIDE 40 MG/4 ML VIAL IVP SCH (09:22)
[2022-01-26] MEDS: PANTOPRAZOLE SODIUM 40 MG/VIAL IVP SCH (09:22)
[2022-01-26] MEDS: AmLODIPine BESYLATE 5 MG TABLET PO SCH ×2 (09:22→20:26)
[2022-01-26] MEDS: DICLOFENAC SODIUM 1% 100 GM GEL [4GM] TP SCH ×2 (09:23→20:34)
[2022-01-26] MEDS: DEXTROSE 5%-WATER 1,000 ML IV SCH (09:23)
[2022-01-26] MEDS: ETHYL ALCOHOL 62% ANTISEPTIC NASAL INHALANT 0.6 ML AMPUL NASAL SCH ×2 (09:23→20:26)
[2022-01-26 09:50] VITALS: BP 120/72
[2022-01-26] MEDS ORDERED: MAGNESIUM SULFATE 4 GM/WATER 100 ML IV PRN (11:30)
[2022-01-26] MEDS ORDERED: MAGNESIUM OXIDE 400 MG TABLET PO PRN (11:30)
[2022-01-26] MEDS ORDERED: MAGNESIUM SULFATE 2 GM/WATER 50 ML IV PRN (11:30)
[2022-01-26] MEDS ORDERED: PERMETHRIN 1% 60 ML LOTION TP ONE (12:00)
[2022-01-26] MEDS: VALPROATE SODIUM 500 MG in DEXTROSE 5%-WATER 50 ML IV SCH ×2 (12:28→22:25)
[2022-01-26 13:28] VITALS: BP 137/82
[2022-01-26 16:48] VITALS: BP 142/78
[2022-01-26 17:26] LABS: GLUCOMETER DEV NAME(LOC) 5S.1B; GLUCOSE,POINT OF CARE 72 MG/DL (70-110)
[2022-01-26 20:59] VITALS: BP 144/80
[2022-01-26 23:36] LABS: GLUCOMETER DEV NAME(LOC) 5S.2B; GLUCOSE,POINT OF CARE 128 MG/DL (70-110)
[2022-01-27] MEDS: ALBUTEROL SULFATE 2.5 MG/0.5 ML NEB SOLUTION NEB SCH ×4 (02:00→20:00)
[2022-01-27] MEDS: IPRATROPIUM BROMIDE 0.5 MG/2.5 ML NEB SOLUTION NEB SCH ×3 (02:00→20:00)
[2022-01-27] MEDS: DEXTROSE 5%-WATER 1,000 ML IV SCH (06:11)
[2022-01-27] MEDS: HEPARIN SODIUM,PORCINE 5,000 UNITS/ML VIAL SQ SCH ×2 (08:00→16:00)
[2022-01-27 08:30] VITALS: BP 107/76
[2022-01-27 08:54] LABS: CALCIUM, TOTAL 8.4 mg/dL (8.8-10.5); CREATININE 2.33 mg/dL (0.60-1.30); MAGNESIUM 2.3 mg/dL (1.80-2.40); PHOSPHORUS 3.4 mg/dL (2.5-4.9); POTASSIUM 3.8 mmol/L (3.5-5.1)
[2022-01-27] MEDS: METOPROLOL TARTRATE 25 MG TABLET PO SCH ×2 (09:00→21:08)
[2022-01-27] MEDS: AmLODIPine BESYLATE 5 MG TABLET PO SCH ×2 (09:00→21:09)
[2022-01-27] MEDS: DICLOFENAC SODIUM 1% 100 GM GEL [4GM] TP SCH ×2 (09:00→21:00)
[2022-01-27] MEDS: OLANZapine 5 MG RAPDIS TABLET PO SCH ×4 (09:00→21:08)
[2022-01-27] MEDS: PANTOPRAZOLE SODIUM 40 MG/VIAL IVP SCH (09:00)
[2022-01-27] MEDS: ETHYL ALCOHOL 62% ANTISEPTIC NASAL INHALANT 0.6 ML AMPUL NASAL SCH ×2 (09:00→21:09)
[2022-01-27 12:30] VITALS: BP 102/73
[2022-01-27] MEDS: VALPROATE SODIUM 500 MG in DEXTROSE 5%-WATER 50 ML IV SCH (12:47)
[2022-01-27 16:56] VITALS: BP 111/75
[2022-01-27 20:35] VITALS: BP 101/69
[2022-01-28] MEDS: HEPARIN SODIUM,PORCINE 5,000 UNITS/ML VIAL SQ SCH ×4 (00:55→23:17)
[2022-01-28] MEDS: ALBUTEROL SULFATE 2.5 MG/0.5 ML NEB SOLUTION NEB SCH ×4 (02:00→20:31)
[2022-01-28] MEDS: IPRATROPIUM BROMIDE 0.5 MG/2.5 ML NEB SOLUTION NEB SCH ×4 (02:00→20:31)
[2022-01-28 02:23] VITALS: BP 106/63
[2022-01-28 04:57] VITALS: BP 106/55
[2022-01-28 06:43] LABS: TOTAL PROTEIN, SERUM 7.7 g/dL (6.4-8.2)
[2022-01-28 07:49] VITALS: BP 114/67
[2022-01-28] MEDS: ETHYL ALCOHOL 62% ANTISEPTIC NASAL INHALANT 0.6 ML AMPUL NASAL SCH ×2 (09:00→21:28)
[2022-01-28] MEDS: DICLOFENAC SODIUM 1% 100 GM GEL [4GM] TP SCH ×2 (09:00→21:33)
[2022-01-28] MEDS: PANTOPRAZOLE SODIUM 40 MG/VIAL IVP SCH (09:00)
[2022-01-28] MEDS: METOPROLOL TARTRATE 25 MG TABLET PO SCH ×2 (09:44→21:32)
[2022-01-28] MEDS: OLANZapine 5 MG RAPDIS TABLET PO SCH ×4 (09:44→21:29)
[2022-01-28] MEDS: AmLODIPine BESYLATE 5 MG TABLET PO SCH ×2 (09:44→21:32)
[2022-01-28] MEDS: VALPROIC ACID 250 MG CAPSULE PO SCH ×3 (09:44→21:29)
[2022-01-28 10:01] LABS: GLUCOMETER DEV NAME(LOC) 5S.1B; GLUCOSE,POINT OF CARE 102 MG/DL (70-110)
[2022-01-28 11:54] VITALS: BP 98/57
[2022-01-28 16:33] VITALS: BP 110/58
[2022-01-28 20:26] VITALS: BP 108/58
[2022-01-29 00:13] VITALS: BP 111/62
[2022-01-29] MEDS: IPRATROPIUM BROMIDE 0.5 MG/2.5 ML NEB SOLUTION NEB SCH ×4 (02:27→20:00)
[2022-01-29] MEDS: ALBUTEROL SULFATE 2.5 MG/0.5 ML NEB SOLUTION NEB SCH ×4 (02:28→20:00)
[2022-01-29 04:17] VITALS: BP 99/56
[2022-01-29] MEDS: HEPARIN SODIUM,PORCINE 5,000 UNITS/ML VIAL SQ SCH ×3 (08:00→23:28)
[2022-01-29 08:34] VITALS: BP 117/79
[2022-01-29] MEDS: ETHYL ALCOHOL 62% ANTISEPTIC NASAL INHALANT 0.6 ML AMPUL NASAL SCH ×2 (09:00→21:00)
[2022-01-29] MEDS: METOPROLOL TARTRATE 25 MG TABLET PO SCH ×2 (09:00→21:00)
[2022-01-29] MEDS: PANTOPRAZOLE SODIUM 40 MG/VIAL IVP SCH (09:00)
[2022-01-29] MEDS: DICLOFENAC SODIUM 1% 100 GM GEL [4GM] TP SCH ×2 (09:00→21:00)
[2022-01-29] MEDS: VALPROIC ACID 250 MG CAPSULE PO SCH ×3 (09:00→21:00)
[2022-01-29] MEDS: OLANZapine 5 MG RAPDIS TABLET PO SCH ×4 (09:00→21:00)
[2022-01-29] MEDS: AmLODIPine BESYLATE 5 MG TABLET PO SCH ×2 (09:00→21:00)
[2022-01-29 16:04] VITALS: BP 115/85
[2022-01-29 19:11] VITALS: BP 124/87
[2022-01-29 21:46] LABS: GLUCOMETER DEV NAME(LOC) 5N.3; GLUCOSE,POINT OF CARE 89 MG/DL (70-110)
[2022-01-30] MEDS: IPRATROPIUM BROMIDE 0.5 MG/2.5 ML NEB SOLUTION NEB SCH ×3 (02:00→14:16)
[2022-01-30] MEDS: ALBUTEROL SULFATE 2.5 MG/0.5 ML NEB SOLUTION NEB SCH ×3 (02:00→14:16)
[2022-01-30 04:19] VITALS: BP 133/85
[2022-01-30 07:53] VITALS: BP 118/89
[2022-01-30] MEDS: HEPARIN SODIUM,PORCINE 5,000 UNITS/ML VIAL SQ SCH ×2 (08:00→16:00)
[2022-01-30] MEDS: METOPROLOL TARTRATE 25 MG TABLET PO SCH ×2 (09:00→10:30)
[2022-01-30] MEDS: PANTOPRAZOLE SODIUM 40 MG/VIAL IVP SCH (09:00)
[2022-01-30] MEDS: VALPROIC ACID 250 MG CAPSULE PO SCH (09:00)
[2022-01-30] MEDS: AmLODIPine BESYLATE 5 MG TABLET PO SCH (09:00)
[2022-01-30] MEDS: DICLOFENAC SODIUM 1% 100 GM GEL [4GM] TP SCH (09:00)
[2022-01-30] MEDS: ETHYL ALCOHOL 62% ANTISEPTIC NASAL INHALANT 0.6 ML AMPUL NASAL SCH (09:00)
[2022-01-30] MEDS: OLANZapine 5 MG RAPDIS TABLET PO SCH ×3 (09:00→17:55)
[2022-01-30 11:32] VITALS: BP 135/80
[2022-01-30 15:52] VITALS: BP 157/94
[2022-01-30] MEDS ORDERED: VALPROIC ACID 250 MG/5 ML SOLUTION UDCUP PO SCH (16:00)
[2022-01-30 16:28] LABS: COVID AG,FIA SOURCE NASOPHARYNGEAL
[2022-01-30] MEDS ORDERED: AMLO-257 PO (16:30)
[2022-01-30] MEDS ORDERED: DICL100G51 TP (16:31)
[2022-01-30] MEDS ORDERED: METO25 PO (16:36)
[2022-01-30] MEDS ORDERED: ETHY1MED NASAL (16:36)
[2022-01-30] MEDS ORDERED: OLAN5TAB94 PO ×2 (16:37→16:40)
[2022-01-30] MEDS ORDERED: PANT-31 PO (16:37)
[2022-01-30] MEDS ORDERED: VALP250C48 PO (16:38)
[2022-01-30] MEDS ORDERED: ALBU8HFA IH (16:41)
[2022-01-30] MEDS ORDERED: PROM473S4 PO (16:41)
== END 2022-01-30 18:30 | DRG 469 ==
LOC: 6N 18:05 → 5S 01-10 13:23 → ICU 01-21 10:15 → 5N 01-22 13:55
PROVIDERS: ADMIT Internal Medicine; ATTEND Internal Medicine
PROC: 5A1935Z Respiratory Ventilation, Less than 24 Consecutive Hours (ICD-10-PCS; principal; 2022-01-25)
PROC: 0BH17EZ Insertion of Endotracheal Airway into Trachea, Via Natural or Artificial Opening (ICD-10-PCS; 2022-01-25)
DX: N17.9 Acute kidney failure, unspecified (principal); G93.41 Metabolic encephalopathy; J91.8 Pleural effusion in other conditions classified elsewhere; E87.2 Acidosis; I13.0 Hypertensive heart and chronic kidney disease with heart failure and stage 1 through stage 4 chronic kidney disease, or unspecified chronic kidney disease; E87.1 Hypo-osmolality and hyponatremia; J44.9 Chronic obstructive pulmonary disease, unspecified; I50.30 Unspecified diastolic (congestive) heart failure; F31.9 Bipolar disorder, unspecified; N18.9 Chronic kidney disease, unspecified; F25.9 Schizoaffective disorder, unspecified; E03.9 Hypothyroidism, unspecified; I34.0 Nonrheumatic mitral (valve) insufficiency; N26.1 Atrophy of kidney (terminal); R09.02 Hypoxemia; J98.11 Atelectasis; E16.2 Hypoglycemia, unspecified; E83.42 Hypomagnesemia; Z87.891 Personal history of nicotine dependence; Z79.899 Other long term (current) drug therapy; Z59.02 Unsheltered homelessness; Z78.1 Physical restraint status; Z20.822 Contact with and (suspected) exposure to COVID-19
CPT/HCPCS: 32555; 36245; 36569; 70450; 70551; 71045; 71250; 76937; 76942; 80048; 80053; 80164; 81001; 81002; 82140; 82248; 82436; 82465; 82570; 82607; 82945; 82962; 83615; 83735; 83880; 83986; 84100; 84155; 84156; 84157; 84300; 84443; 84540; 85025; 85610; 85730; 86140; 86592; 87015; 87075; 87081; 87086; 87101; 87205; 87206; 89051; 92526; 94060; 94640; 95816; 97166; 97535; C9113; G0378; J0360; J0696; J1644; J1940; J2250; J2310; J3010; J3475; J3490; J7030; J7050; J7060; Q9967; 36415-L1; 36415-TC; 87070; J7613; U0003

== ENCOUNTER 2022-01-30 18:30 | Inpatient (IN) | payer MEDICAID, OTHER ==
[~2022-01-30] VITALS: Ht 162.6 cm; Wt 95.7 kg
[~2022-01-30 18:30] MED LIST changes: +ALBU8HFA IH; +AMLO-257 PO; +DICL100G51 TP; +ETHY1MED2 NASAL; +OLAN5TAB94 PO; +PANT-31 PO; +PROM473S4 PO; -RISP0.5T61 PO; +RISP1TAB48 PO; +VALP250C48 PO
[2022-01-30 18:40] VITALS: BP 146/93
[2022-01-30] MEDS ORDERED: PROMETHAZINE HCL 25 MG TABLET PO PRN ×2 (19:30→20:15)
[2022-01-30] MEDS ORDERED: MAGNESIUM HYDROXIDE SUSPENSION 30 ML UDCUP PO PRN ×2 (19:30→20:15)
[2022-01-30] MEDS ORDERED: ACETAMINOPHEN 325 MG TABLET PO PRN (19:30)
[2022-01-30] MEDS ORDERED: MAG HYDROX/AL HYDROX/SIMETH ES 30 ML SUSPENSION UDCUP PO PRN ×2 (19:30→20:15)
[2022-01-30] MEDS ORDERED: OLANZapine 5 MG RAPDIS TABLET PO PRN (20:15)
[2022-01-30] MEDS ORDERED: GuaiFENesin/D-METHORPHAN [SUGAR-FREE] 200-20MG/10 ML SYRUP UDCUP PO PRN (20:15)
[2022-01-30] MEDS ORDERED: HydrOXYzine PAMOATE 50 MG CAPSULE PO PRN (20:15)
[2022-01-30] MEDS ORDERED: LORazepam 2 MG TABLET PO PRN (20:15)
[2022-01-30] MEDS: DIVALPROEX SODIUM 500 MG ER TABLET PO SCH (21:00)
[2022-01-30] MEDS ORDERED: OLANZapine 10 MG RAPDIS TABLET PO SCH (21:00)
[2022-01-30] MEDS: MELATONIN 5 MG TABLET PO SCH (21:09)
[2022-01-30 22:59] LABS: BILIRUBIN,URINE NEGATIVE (NEGATIVE); GLUCOSE, URINE (UA) NEGATIVE (NEGATIVE); KETONES,URINE NEGATIVE (NEGATIVE); LEUKOCYTE ESTERASE ,URINE MODERATE (NEGATIVE); NITRATE,URINE NEGATIVE (NEGATIVE); OCCULT BLOOD,URINE NEGATIVE (NEGATIVE); PH,URINE 7.5 (5.0-8.0); PROTEIN,URINE 30-70 mg/dL (NEGATIVE); SPECIFIC GRAVITIY, URINE 1.012 (1.003-1.030)
[2022-01-30 23:07] LABS: APPEARANCE,URINE HAZY (CLEAR); RBC,URINE None Seen /HPF (0-2)
[2022-01-30 23:08] LABS: BACTERIA,URINE Few /HPF (None Seen)
[2022-01-30 23:25] LABS: AMPHET/METH SCREEN,URINE NEGATIVE (NEGATIVE); BARBITURATE SCREEN, URINE NEGATIVE (NEGATIVE); BENZODIAZEPINES SCREEN,URINE NEGATIVE (NEGATIVE); CANNABINOID SCREEN,URINE NEGATIVE (NEGATIVE); COCAINE SCREEN,URINE NEGATIVE (NEGATIVE); METHADONE SCREEN, URINE NEGATIVE (NEGATIVE); OPIATE SCREEN,URINE NEGATIVE (NEGATIVE)
[2022-01-30 23:26] LABS: PHENCYCLIDINE SCREEN,URINE NEGATIVE (NEGATIVE)
[2022-01-30] MEDS ORDERED: PERMETHRIN 1% 60 ML LOTION TP ONE (23:30)
[2022-01-31 02:10] VITALS: BP 88/60
[2022-01-31] MEDS: PANTOPRAZOLE SODIUM 40 MG DR TABLET PO SCH (09:00)
[2022-01-31] MEDS: DICLOFENAC SODIUM 1% 100 GM GEL [4GM] TP SCH ×2 (09:00→16:49)
[2022-01-31] MEDS: THIAMINE 100 MG TABLET PO SCH ×2 (09:00→16:26)
[2022-01-31] MEDS: OMEGA-3/DHA/EPA/FISH OIL 1,000 MG CAPSULE PO SCH (09:00)
[2022-01-31] MEDS: FOLIC ACID 1 MG TABLET PO SCH (09:00)
[2022-01-31] MEDS: MULTIVITAMINS WITH MINERALS, THERAPEUTIC TABLET PO SCH (09:00)
[2022-01-31] MEDS: DULoxetine HCL 20 MG CAPSULE PO SCH (09:00)
[2022-01-31] MEDS: DIVALPROEX SODIUM 500 MG ER TABLET PO SCH (09:00)
[2022-01-31] MEDS: METOPROLOL TARTRATE 25 MG TABLET PO SCH ×2 (09:00→16:26)
[2022-01-31] MEDS: AmLODIPine BESYLATE 5 MG TABLET PO SCH ×2 (09:00→16:26)
[2022-01-31 09:35] VITALS: BP 144/73
[2022-01-31] MEDS ORDERED: PERMETHRIN 5% 60 GM CREAM TP ONE (12:00)
[2022-01-31] MEDS ORDERED: PERMETHRIN 1% 60 ML LOTION TP ONE (14:15)
[2022-01-31] MEDS: OLANZapine 5 MG RAPDIS TABLET PO SCH (21:46)
[2022-01-31] MEDS: VALPROIC ACID 250 MG/5 ML SOLUTION UDCUP PO SCH (21:46)
[2022-01-31] MEDS: MELATONIN 5 MG TABLET PO SCH (21:46)
[2022-02-01 01:30] VITALS: BP 133/80
[2022-02-01] MEDS: FOLIC ACID 1 MG TABLET PO SCH (09:00)
[2022-02-01] MEDS: DICLOFENAC SODIUM 1% 100 GM GEL [4GM] TP SCH ×2 (09:00→17:00)
[2022-02-01] MEDS: THIAMINE 100 MG TABLET PO SCH ×2 (09:00→17:00)
[2022-02-01] MEDS: OMEGA-3/DHA/EPA/FISH OIL 1,000 MG CAPSULE PO SCH (09:00)
[2022-02-01] MEDS: MULTIVITAMINS WITH MINERALS, THERAPEUTIC TABLET PO SCH (09:00)
[2022-02-01 09:45] VITALS: BP 108/64
[2022-02-01] MEDS: PANTOPRAZOLE SODIUM 40 MG DR TABLET PO SCH (09:45)
[2022-02-01] MEDS: DULoxetine HCL 20 MG CAPSULE PO SCH (09:46)
[2022-02-01] MEDS: AmLODIPine BESYLATE 5 MG TABLET PO SCH ×2 (09:46→17:00)
[2022-02-01] MEDS: METOPROLOL TARTRATE 25 MG TABLET PO SCH ×2 (09:46→17:00)
[2022-02-01] MEDS: ACETAMINOPHEN 325 MG TABLET PO PRN ×2 (09:46→22:55)
[2022-02-01 16:35] VITALS: BP 105/62
[2022-02-01] MEDS: LOPERAMIDE HCL 2 MG CAPSULE PO PRN (18:18)
[2022-02-01] MEDS: VALPROIC ACID 250 MG/5 ML SOLUTION UDCUP PO SCH (21:23)
[2022-02-01] MEDS: OLANZapine 5 MG RAPDIS TABLET PO SCH (21:23)
[2022-02-01] MEDS: MELATONIN 5 MG TABLET PO SCH (21:23)
[2022-02-02 03:00] VITALS: BP 90/60
[2022-02-02 08:54] LABS: ALBUMIN 1.8 g/dL (3.4-5.0); BILIRUBIN,TOTAL 1.2 mg/dL (0.1-1.0); CALCIUM, TOTAL 8.9 mg/dL (8.8-10.5); CREATININE 2.02 mg/dL (0.60-1.30); POTASSIUM 4.5 mmol/L (3.5-5.1); TOTAL PROTEIN, SERUM 7.4 g/dL (6.4-8.2)
[2022-02-02 08:55] VITALS: BP 100/60
[2022-02-02] MEDS: FOLIC ACID 1 MG TABLET PO SCH ×2 (09:00→09:11)
[2022-02-02] MEDS: DULoxetine HCL 20 MG CAPSULE PO SCH ×2 (09:00→09:11)
[2022-02-02] MEDS: AmLODIPine BESYLATE 5 MG TABLET PO SCH ×3 (09:00→17:00)
[2022-02-02] MEDS: THIAMINE 100 MG TABLET PO SCH ×3 (09:00→17:00)
[2022-02-02] MEDS: MULTIVITAMINS WITH MINERALS, THERAPEUTIC TABLET PO SCH ×2 (09:00→09:11)
[2022-02-02] MEDS: METOPROLOL TARTRATE 25 MG TABLET PO SCH ×2 (09:00→17:00)
[2022-02-02] MEDS: PANTOPRAZOLE SODIUM 40 MG DR TABLET PO SCH ×2 (09:00→09:11)
[2022-02-02] MEDS: OMEGA-3/DHA/EPA/FISH OIL 1,000 MG CAPSULE PO SCH ×2 (09:00→09:11)
[2022-02-02] MEDS: DICLOFENAC SODIUM 1% 100 GM GEL [4GM] TP SCH ×3 (09:12→18:02)
[2022-02-02 17:07] VITALS: BP 105/64
[2022-02-02] MEDS: MUPIROCIN CALCIUM 2% 22 GM OINTMENT NASAL SCH (18:00)
[2022-02-02] MEDS: OLANZapine 5 MG RAPDIS TABLET PO SCH (21:10)
[2022-02-02] MEDS: MELATONIN 5 MG TABLET PO SCH (21:10)
[2022-02-02] MEDS: VALPROIC ACID 250 MG/5 ML SOLUTION UDCUP PO SCH (21:10)
[2022-02-03] MEDS: METOPROLOL TARTRATE 25 MG TABLET PO SCH ×2 (09:00→17:00)
[2022-02-03] MEDS: AmLODIPine BESYLATE 5 MG TABLET PO SCH ×2 (09:00→17:00)
[2022-02-03] MEDS: MUPIROCIN CALCIUM 2% 22 GM OINTMENT NASAL SCH ×2 (09:33→17:03)
[2022-02-03] MEDS: DULoxetine HCL 20 MG CAPSULE PO SCH (09:33)
[2022-02-03] MEDS: OMEGA-3/DHA/EPA/FISH OIL 1,000 MG CAPSULE PO SCH (09:33)
[2022-02-03] MEDS: MULTIVITAMINS WITH MINERALS, THERAPEUTIC TABLET PO SCH (09:33)
[2022-02-03] MEDS: PANTOPRAZOLE SODIUM 40 MG DR TABLET PO SCH (09:33)
[2022-02-03] MEDS: FOLIC ACID 1 MG TABLET PO SCH (09:33)
[2022-02-03] MEDS: THIAMINE 100 MG TABLET PO SCH ×2 (09:33→17:04)
[2022-02-03] MEDS: DICLOFENAC SODIUM 1% 100 GM GEL [4GM] TP SCH ×2 (09:34→17:05)
[2022-02-03 09:47] VITALS: BP 90/57
[2022-02-03 17:00] VITALS: BP 94/55
[2022-02-03 20:41] VITALS: BP 89/55
[2022-02-03] MEDS: VALPROIC ACID 250 MG/5 ML SOLUTION UDCUP PO SCH (21:00)
[2022-02-03] MEDS: OLANZapine 5 MG RAPDIS TABLET PO SCH (21:00)
[2022-02-03] MEDS: MELATONIN 5 MG TABLET PO SCH (21:00)
[2022-02-04 08:00] VITALS: BP 116/76
[2022-02-04] MEDS: MULTIVITAMINS WITH MINERALS, THERAPEUTIC TABLET PO SCH (09:52)
[2022-02-04] MEDS: THIAMINE 100 MG TABLET PO SCH ×2 (09:52→16:51)
[2022-02-04] MEDS: FOLIC ACID 1 MG TABLET PO SCH (09:52)
[2022-02-04] MEDS: OMEGA-3/DHA/EPA/FISH OIL 1,000 MG CAPSULE PO SCH (09:52)
[2022-02-04] MEDS: DULoxetine HCL 30 MG CAPSULE PO SCH (09:53)
[2022-02-04] MEDS: PANTOPRAZOLE SODIUM 40 MG DR TABLET PO SCH (09:53)
[2022-02-04] MEDS: AmLODIPine BESYLATE 5 MG TABLET PO SCH ×2 (09:53→16:59)
[2022-02-04] MEDS: MUPIROCIN CALCIUM 2% 22 GM OINTMENT NASAL SCH ×2 (09:53→16:50)
[2022-02-04] MEDS: METOPROLOL TARTRATE 25 MG TABLET PO SCH ×2 (09:53→16:59)
[2022-02-04] MEDS: DICLOFENAC SODIUM 1% 100 GM GEL [4GM] TP SCH ×2 (09:55→16:51)
[2022-02-04 16:05] VITALS: BP 99/79
[2022-02-04] MEDS: VALPROIC ACID 250 MG/5 ML SOLUTION UDCUP PO SCH (20:49)
[2022-02-04] MEDS: MELATONIN 5 MG TABLET PO SCH (20:49)
[2022-02-04] MEDS: OLANZapine 10 MG RAPDIS TABLET PO SCH (21:27)
[2022-02-05 08:10] VITALS: BP 99/64
[2022-02-05] MEDS: METOPROLOL TARTRATE 25 MG TABLET PO SCH ×2 (09:00→16:17)
[2022-02-05] MEDS: AmLODIPine BESYLATE 5 MG TABLET PO SCH ×2 (09:00→16:18)
[2022-02-05] MEDS: OMEGA-3/DHA/EPA/FISH OIL 1,000 MG CAPSULE PO SCH (09:09)
[2022-02-05] MEDS: MUPIROCIN CALCIUM 2% 22 GM OINTMENT NASAL SCH ×2 (09:09→16:17)
[2022-02-05] MEDS: FOLIC ACID 1 MG TABLET PO SCH (09:09)
[2022-02-05] MEDS: THIAMINE 100 MG TABLET PO SCH ×2 (09:09→16:18)
[2022-02-05] MEDS: DULoxetine HCL 30 MG CAPSULE PO SCH (09:10)
[2022-02-05] MEDS: PANTOPRAZOLE SODIUM 40 MG DR TABLET PO SCH (09:10)
[2022-02-05] MEDS: MULTIVITAMINS WITH MINERALS, THERAPEUTIC TABLET PO SCH (09:10)
[2022-02-05] MEDS: DICLOFENAC SODIUM 1% 100 GM GEL [4GM] TP SCH ×2 (09:11→16:19)
[2022-02-05 14:17] LABS: COVID AG,FIA SOURCE NASAL SWAB
[2022-02-05 16:04] VITALS: BP 108/76
[2022-02-05] MEDS ORDERED: PALIPERIDONE PALMITATE 117 MG/0.75 ML SYRINGE IM ONE (20:00)
[2022-02-05] MEDS: VALPROIC ACID 250 MG/5 ML SOLUTION UDCUP PO SCH (21:10)
[2022-02-05] MEDS: OLANZapine 10 MG RAPDIS TABLET PO SCH (21:10)
[2022-02-05] MEDS: MELATONIN 5 MG TABLET PO SCH (21:35)
[2022-02-06] MEDS: MUPIROCIN CALCIUM 2% 22 GM OINTMENT NASAL SCH ×2 (08:50→17:00)
[2022-02-06] MEDS: DICLOFENAC SODIUM 1% 100 GM GEL [4GM] TP SCH ×3 (08:50→17:00)
[2022-02-06] MEDS: PANTOPRAZOLE SODIUM 40 MG DR TABLET PO SCH ×2 (08:51→09:00)
[2022-02-06] MEDS: THIAMINE 100 MG TABLET PO SCH ×3 (08:51→17:00)
[2022-02-06] MEDS: MULTIVITAMINS WITH MINERALS, THERAPEUTIC TABLET PO SCH ×2 (08:51→09:00)
[2022-02-06] MEDS: AmLODIPine BESYLATE 5 MG TABLET PO SCH ×3 (08:51→17:00)
[2022-02-06] MEDS: FOLIC ACID 1 MG TABLET PO SCH ×2 (08:51→09:00)
[2022-02-06] MEDS: OMEGA-3/DHA/EPA/FISH OIL 1,000 MG CAPSULE PO SCH ×2 (08:51→09:00)
[2022-02-06] MEDS: DULoxetine HCL 30 MG CAPSULE PO SCH ×2 (08:52→09:00)
[2022-02-06] MEDS: METOPROLOL TARTRATE 25 MG TABLET PO SCH ×2 (08:54→17:00)
[2022-02-06] MEDS ORDERED: DULoxetine HCL 20 MG CAPSULE PO SCH (09:00)
[2022-02-06 09:06] LABS: CALCIUM, TOTAL 8.4 mg/dL (8.8-10.5); CREATININE 2.3 mg/dL (0.60-1.30); POTASSIUM 5.4 mmol/L (3.5-5.1)
[2022-02-06 09:13] VITALS: BP 86/53
[2022-02-06 16:00] VITALS: BP 98/55
[2022-02-06] MEDS: MELATONIN 5 MG TABLET PO SCH (20:35)
[2022-02-06] MEDS: OLANZapine 10 MG RAPDIS TABLET PO SCH (20:35)
[2022-02-06] MEDS: VALPROIC ACID 250 MG/5 ML SOLUTION UDCUP PO SCH (20:35)
[2022-02-07 08:02] VITALS: BP 127/71
[2022-02-07] MEDS: DICLOFENAC SODIUM 1% 100 GM GEL [4GM] TP SCH ×2 (08:48→17:16)
[2022-02-07] MEDS: MULTIVITAMINS WITH MINERALS, THERAPEUTIC TABLET PO SCH (08:48)
[2022-02-07] MEDS: MUPIROCIN CALCIUM 2% 22 GM OINTMENT NASAL SCH (08:48)
[2022-02-07] MEDS: DULoxetine HCL 30 MG CAPSULE PO SCH (08:49)
[2022-02-07] MEDS: THIAMINE 100 MG TABLET PO SCH ×2 (08:49→16:37)
[2022-02-07] MEDS: AmLODIPine BESYLATE 5 MG TABLET PO SCH ×2 (08:49→17:00)
[2022-02-07] MEDS: PANTOPRAZOLE SODIUM 40 MG DR TABLET PO SCH (08:49)
[2022-02-07] MEDS: OMEGA-3/DHA/EPA/FISH OIL 1,000 MG CAPSULE PO SCH (08:49)
[2022-02-07] MEDS: FOLIC ACID 1 MG TABLET PO SCH (08:50)
[2022-02-07] MEDS: METOPROLOL TARTRATE 25 MG TABLET PO SCH ×2 (08:50→17:00)
[2022-02-07] MEDS ORDERED: SODIUM POLYSTYRENE SULFONATE 15 GM/60 ML SUSPENSION BOTTLE PO ONE (11:15)
[2022-02-07 16:52] VITALS: BP 106/63
[2022-02-07] MEDS: LOPERAMIDE HCL 2 MG CAPSULE PO PRN (17:10)
[2022-02-07] MEDS: OLANZapine 10 MG RAPDIS TABLET PO SCH (20:14)
[2022-02-07] MEDS: MELATONIN 5 MG TABLET PO SCH (20:14)
[2022-02-07] MEDS: VALPROIC ACID 250 MG/5 ML SOLUTION UDCUP PO SCH (20:14)
[2022-02-08 08:29] VITALS: BP 126/71
[2022-02-08] MEDS: METOPROLOL TARTRATE 25 MG TABLET PO SCH ×2 (10:11→16:59)
[2022-02-08] MEDS: DULoxetine HCL 30 MG CAPSULE PO SCH (10:11)
[2022-02-08] MEDS: FOLIC ACID 1 MG TABLET PO SCH (10:11)
[2022-02-08] MEDS: PANTOPRAZOLE SODIUM 40 MG DR TABLET PO SCH (10:11)
[2022-02-08] MEDS: DICLOFENAC SODIUM 1% 100 GM GEL [4GM] TP SCH ×2 (10:11→16:59)
[2022-02-08] MEDS: MULTIVITAMINS WITH MINERALS, THERAPEUTIC TABLET PO SCH (10:11)
[2022-02-08] MEDS: AmLODIPine BESYLATE 5 MG TABLET PO SCH ×2 (10:11→16:58)
[2022-02-08] MEDS: THIAMINE 100 MG TABLET PO SCH ×2 (10:11→16:58)
[2022-02-08] MEDS: OMEGA-3/DHA/EPA/FISH OIL 1,000 MG CAPSULE PO SCH (10:11)
[2022-02-08 16:04] VITALS: BP 122/70
[2022-02-08] MEDS: OLANZapine 10 MG RAPDIS TABLET PO SCH (21:09)
[2022-02-08] MEDS: VALPROIC ACID 250 MG/5 ML SOLUTION UDCUP PO SCH (21:09)
[2022-02-08] MEDS: MELATONIN 5 MG TABLET PO SCH (21:09)
[2022-02-09 00:45] VITALS: BP 108/64
[2022-02-09 08:15] VITALS: BP 135/85
[2022-02-09] MEDS: DULoxetine HCL 30 MG CAPSULE PO SCH (10:30)
[2022-02-09] MEDS: AmLODIPine BESYLATE 5 MG TABLET PO SCH ×2 (10:30→16:26)
[2022-02-09] MEDS: MULTIVITAMINS WITH MINERALS, THERAPEUTIC TABLET PO SCH (10:30)
[2022-02-09] MEDS: THIAMINE 100 MG TABLET PO SCH ×2 (10:30→16:26)
[2022-02-09] MEDS: METOPROLOL TARTRATE 25 MG TABLET PO SCH ×2 (10:30→16:26)
[2022-02-09] MEDS: PANTOPRAZOLE SODIUM 40 MG DR TABLET PO SCH (10:30)
[2022-02-09] MEDS: FOLIC ACID 1 MG TABLET PO SCH (10:30)
[2022-02-09] MEDS: OMEGA-3/DHA/EPA/FISH OIL 1,000 MG CAPSULE PO SCH (10:30)
[2022-02-09] MEDS: DICLOFENAC SODIUM 1% 100 GM GEL [4GM] TP SCH ×2 (10:35→16:49)
[2022-02-09 16:09] VITALS: BP 115/73
[2022-02-09] MEDS: VALPROIC ACID 250 MG/5 ML SOLUTION UDCUP PO SCH (20:15)
[2022-02-09] MEDS: MELATONIN 5 MG TABLET PO SCH (20:16)
[2022-02-09] MEDS: OLANZapine 10 MG RAPDIS TABLET PO SCH (20:16)
[2022-02-10] MEDS: OMEGA-3/DHA/EPA/FISH OIL 1,000 MG CAPSULE PO SCH (08:56)
[2022-02-10] MEDS: DICLOFENAC SODIUM 1% 100 GM GEL [4GM] TP SCH ×2 (08:56→17:27)
[2022-02-10] MEDS: PANTOPRAZOLE SODIUM 40 MG DR TABLET PO SCH (08:57)
[2022-02-10] MEDS: AmLODIPine BESYLATE 5 MG TABLET PO SCH ×2 (08:57→17:27)
[2022-02-10] MEDS: MULTIVITAMINS WITH MINERALS, THERAPEUTIC TABLET PO SCH (08:57)
[2022-02-10] MEDS: DULoxetine HCL 30 MG CAPSULE PO SCH (08:57)
[2022-02-10] MEDS: METOPROLOL TARTRATE 25 MG TABLET PO SCH ×2 (08:58→17:27)
[2022-02-10 09:33] VITALS: BP 115/57
[2022-02-10 16:00] VITALS: BP 112/62
[2022-02-10] MEDS: VALPROIC ACID 250 MG/5 ML SOLUTION UDCUP PO SCH (20:15)
[2022-02-10] MEDS: OLANZapine 10 MG RAPDIS TABLET PO SCH (20:15)
[2022-02-10] MEDS: MELATONIN 5 MG TABLET PO SCH (20:15)
[2022-02-11 06:23] LABS: COVID AG,FIA SOURCE NASAL SWAB
[2022-02-11] MEDS: DICLOFENAC SODIUM 1% 100 GM GEL [4GM] TP SCH ×2 (09:00→16:17)
[2022-02-11] MEDS: DULoxetine HCL 30 MG CAPSULE PO SCH (09:23)
[2022-02-11] MEDS: PANTOPRAZOLE SODIUM 40 MG DR TABLET PO SCH (09:24)
[2022-02-11] MEDS: OMEGA-3/DHA/EPA/FISH OIL 1,000 MG CAPSULE PO SCH (09:24)
[2022-02-11] MEDS: METOPROLOL TARTRATE 25 MG TABLET PO SCH ×2 (09:24→16:15)
[2022-02-11] MEDS: MULTIVITAMINS WITH MINERALS, THERAPEUTIC TABLET PO SCH (09:24)
[2022-02-11] MEDS: AmLODIPine BESYLATE 5 MG TABLET PO SCH ×2 (09:24→16:15)
[2022-02-11 16:09] VITALS: BP 126/78
[2022-02-11] MEDS: MELATONIN 5 MG TABLET PO SCH (20:46)
[2022-02-11] MEDS: OLANZapine 10 MG RAPDIS TABLET PO SCH (20:46)
[2022-02-11] MEDS: VALPROIC ACID 250 MG/5 ML SOLUTION UDCUP PO SCH (20:47)
[2022-02-12 08:06] VITALS: BP 126/74
[2022-02-12] MEDS: PANTOPRAZOLE SODIUM 40 MG DR TABLET PO SCH (08:22)
[2022-02-12] MEDS: DULoxetine HCL 30 MG CAPSULE PO SCH (08:22)
[2022-02-12] MEDS: MULTIVITAMINS WITH MINERALS, THERAPEUTIC TABLET PO SCH (08:22)
[2022-02-12] MEDS: AmLODIPine BESYLATE 5 MG TABLET PO SCH ×2 (08:32→17:22)
[2022-02-12] MEDS: METOPROLOL TARTRATE 25 MG TABLET PO SCH ×2 (08:32→17:22)
[2022-02-12] MEDS: OMEGA-3/DHA/EPA/FISH OIL 1,000 MG CAPSULE PO SCH (08:32)
[2022-02-12] MEDS: DICLOFENAC SODIUM 1% 100 GM GEL [4GM] TP SCH ×2 (08:33→17:23)
[2022-02-12] MEDS ORDERED: TUBERCULIN, PURIFIED PROTEIN DERIVATIVE 5 TU/0.1 ML SYRINGE ID ONE (11:45)
[2022-02-12 16:30] VITALS: BP 109/65
[2022-02-12] MEDS: VALPROIC ACID 250 MG/5 ML SOLUTION UDCUP PO SCH (20:40)
[2022-02-12] MEDS: OLANZapine 10 MG RAPDIS TABLET PO SCH (20:40)
[2022-02-12] MEDS: MELATONIN 5 MG TABLET PO SCH (20:41)
[2022-02-13] MEDS: ACETAMINOPHEN 325 MG TABLET PO PRN (00:38)
[2022-02-13 01:44] VITALS: BP 105/62
[2022-02-13 08:14] VITALS: BP 120/77
[2022-02-13] MEDS: MULTIVITAMINS WITH MINERALS, THERAPEUTIC TABLET PO SCH (09:06)
[2022-02-13] MEDS: PANTOPRAZOLE SODIUM 40 MG DR TABLET PO SCH (09:06)
[2022-02-13] MEDS: OMEGA-3/DHA/EPA/FISH OIL 1,000 MG CAPSULE PO SCH (09:06)
[2022-02-13] MEDS: DULoxetine HCL 30 MG CAPSULE PO SCH (09:06)
[2022-02-13] MEDS: METOPROLOL TARTRATE 25 MG TABLET PO SCH ×2 (09:07→16:10)
[2022-02-13] MEDS: AmLODIPine BESYLATE 5 MG TABLET PO SCH ×2 (09:07→16:10)
[2022-02-13] MEDS: DICLOFENAC SODIUM 1% 100 GM GEL [4GM] TP SCH ×2 (12:33→16:11)
[2022-02-13 16:03] VITALS: BP 114/77
[2022-02-13] MEDS: MELATONIN 5 MG TABLET PO SCH (20:29)
[2022-02-13] MEDS: OLANZapine 10 MG RAPDIS TABLET PO SCH (20:29)
[2022-02-13] MEDS: VALPROIC ACID 250 MG/5 ML SOLUTION UDCUP PO SCH (20:29)
[2022-02-14] MEDS: DULoxetine HCL 30 MG CAPSULE PO SCH (08:42)
[2022-02-14] MEDS: PANTOPRAZOLE SODIUM 40 MG DR TABLET PO SCH (08:42)
[2022-02-14] MEDS: METOPROLOL TARTRATE 25 MG TABLET PO SCH ×2 (08:42→17:13)
[2022-02-14] MEDS: MULTIVITAMINS WITH MINERALS, THERAPEUTIC TABLET PO SCH (08:42)
[2022-02-14] MEDS: OMEGA-3/DHA/EPA/FISH OIL 1,000 MG CAPSULE PO SCH (08:42)
[2022-02-14] MEDS: AmLODIPine BESYLATE 5 MG TABLET PO SCH ×2 (08:42→17:13)
[2022-02-14 08:55] VITALS: BP 115/66
[2022-02-14] MEDS: DICLOFENAC SODIUM 1% 100 GM GEL [4GM] TP SCH ×2 (09:00→17:14)
[2022-02-14 16:00] VITALS: BP 134/76
[2022-02-14] MEDS: MELATONIN 5 MG TABLET PO SCH (20:55)
[2022-02-14] MEDS: VALPROIC ACID 250 MG/5 ML SOLUTION UDCUP PO SCH (20:56)
[2022-02-14] MEDS ORDERED: OLANZapine 10 MG RAPDIS TABLET PO SCH (21:00)
[2022-02-15 09:00] VITALS: BP 115/62
[2022-02-15] MEDS: DICLOFENAC SODIUM 1% 100 GM GEL [4GM] TP SCH ×2 (09:00→16:44)
[2022-02-15] MEDS: OMEGA-3/DHA/EPA/FISH OIL 1,000 MG CAPSULE PO SCH (09:03)
[2022-02-15] MEDS: PANTOPRAZOLE SODIUM 40 MG DR TABLET PO SCH (09:03)
[2022-02-15] MEDS: METOPROLOL TARTRATE 25 MG TABLET PO SCH ×2 (09:03→16:43)
[2022-02-15] MEDS: DULoxetine HCL 30 MG CAPSULE PO SCH (09:03)
[2022-02-15] MEDS: AmLODIPine BESYLATE 5 MG TABLET PO SCH ×2 (09:03→16:43)
[2022-02-15] MEDS: MULTIVITAMINS WITH MINERALS, THERAPEUTIC TABLET PO SCH (09:03)
[2022-02-15 16:04] VITALS: BP 105/78
[2022-02-15] MEDS: LURASIDONE HCL 40 MG TABLET PO SCH (16:43)
[2022-02-15] MEDS: MELATONIN 5 MG TABLET PO SCH (20:31)
[2022-02-15] MEDS: VALPROIC ACID 250 MG/5 ML SOLUTION UDCUP PO SCH (20:32)
[2022-02-16] MEDS: AmLODIPine BESYLATE 5 MG TABLET PO SCH ×2 (08:04→16:29)
[2022-02-16] MEDS: DULoxetine HCL 30 MG CAPSULE PO SCH (08:04)
[2022-02-16] MEDS: OMEGA-3/DHA/EPA/FISH OIL 1,000 MG CAPSULE PO SCH (08:04)
[2022-02-16] MEDS: MULTIVITAMINS WITH MINERALS, THERAPEUTIC TABLET PO SCH (08:04)
[2022-02-16] MEDS: METOPROLOL TARTRATE 25 MG TABLET PO SCH ×2 (08:04→16:29)
[2022-02-16] MEDS: PANTOPRAZOLE SODIUM 40 MG DR TABLET PO SCH (08:04)
[2022-02-16 09:00] VITALS: BP 106/69
[2022-02-16] MEDS: DICLOFENAC SODIUM 1% 100 GM GEL [4GM] TP SCH ×2 (09:00→16:31)
[2022-02-16] MEDS: LURASIDONE HCL 40 MG TABLET PO SCH (16:29)
[2022-02-16 18:59] VITALS: BP 106/64
[2022-02-16] MEDS: MELATONIN 5 MG TABLET PO SCH (20:06)
[2022-02-16] MEDS: VALPROIC ACID 250 MG/5 ML SOLUTION UDCUP PO SCH (20:06)
[2022-02-17 08:30] VITALS: BP 132/72
[2022-02-17] MEDS: DULoxetine HCL 30 MG CAPSULE PO SCH (09:51)
[2022-02-17] MEDS: OMEGA-3/DHA/EPA/FISH OIL 1,000 MG CAPSULE PO SCH (09:51)
[2022-02-17] MEDS: MULTIVITAMINS WITH MINERALS, THERAPEUTIC TABLET PO SCH (09:51)
[2022-02-17] MEDS: METOPROLOL TARTRATE 25 MG TABLET PO SCH ×2 (09:52→17:02)
[2022-02-17] MEDS: PANTOPRAZOLE SODIUM 40 MG DR TABLET PO SCH (09:52)
[2022-02-17] MEDS: AmLODIPine BESYLATE 5 MG TABLET PO SCH ×2 (09:54→17:02)
[2022-02-17] MEDS: DICLOFENAC SODIUM 1% 100 GM GEL [4GM] TP SCH ×2 (09:55→17:01)
[2022-02-17 16:12] VITALS: BP 130/80
[2022-02-17] MEDS: LURASIDONE HCL 40 MG TABLET PO SCH (17:02)
[2022-02-17] MEDS: VALPROIC ACID 250 MG/5 ML SOLUTION UDCUP PO SCH (20:55)
[2022-02-17] MEDS: MELATONIN 5 MG TABLET PO SCH (20:55)
[2022-02-18] MEDS: OMEGA-3/DHA/EPA/FISH OIL 1,000 MG CAPSULE PO SCH (08:18)
[2022-02-18] MEDS: PANTOPRAZOLE SODIUM 40 MG DR TABLET PO SCH (08:18)
[2022-02-18] MEDS: DULoxetine HCL 30 MG CAPSULE PO SCH (08:18)
[2022-02-18] MEDS: MULTIVITAMINS WITH MINERALS, THERAPEUTIC TABLET PO SCH (08:18)
[2022-02-18] MEDS: AmLODIPine BESYLATE 5 MG TABLET PO SCH ×2 (08:18→16:06)
[2022-02-18] MEDS: METOPROLOL TARTRATE 25 MG TABLET PO SCH ×2 (08:19→16:07)
[2022-02-18] MEDS: DICLOFENAC SODIUM 1% 100 GM GEL [4GM] TP SCH ×2 (09:00→16:07)
[2022-02-18 09:13] VITALS: BP 144/73
[2022-02-18] MEDS: LURASIDONE HCL 40 MG TABLET PO SCH (16:06)
[2022-02-18 16:32] VITALS: BP 119/71
[2022-02-18] MEDS: MELATONIN 5 MG TABLET PO SCH (20:11)
[2022-02-18] MEDS: VALPROIC ACID 250 MG/5 ML SOLUTION UDCUP PO SCH (20:11)
[2022-02-18 22:08] LABS: COVID AG,FIA SOURCE NASAL SWAB
[2022-02-19 08:24] VITALS: BP 111/64
[2022-02-19] MEDS: DICLOFENAC SODIUM 1% 100 GM GEL [4GM] TP SCH ×2 (09:00→17:13)
[2022-02-19] MEDS: OMEGA-3/DHA/EPA/FISH OIL 1,000 MG CAPSULE PO SCH (09:07)
[2022-02-19] MEDS: AmLODIPine BESYLATE 5 MG TABLET PO SCH ×2 (09:07→17:12)
[2022-02-19] MEDS: MULTIVITAMINS WITH MINERALS, THERAPEUTIC TABLET PO SCH (09:07)
[2022-02-19] MEDS: DULoxetine HCL 30 MG CAPSULE PO SCH (09:07)
[2022-02-19] MEDS: PANTOPRAZOLE SODIUM 40 MG DR TABLET PO SCH (09:08)
[2022-02-19] MEDS: METOPROLOL TARTRATE 25 MG TABLET PO SCH ×2 (09:08→17:12)
[2022-02-19 16:14] VITALS: BP 107/77
[2022-02-19] MEDS: LURASIDONE HCL 40 MG TABLET PO SCH (17:12)
[2022-02-19] MEDS: MELATONIN 5 MG TABLET PO SCH (21:01)
[2022-02-19] MEDS: VALPROIC ACID 250 MG/5 ML SOLUTION UDCUP PO SCH (21:01)
[2022-02-20 08:44] VITALS: BP 96/57
[2022-02-20] MEDS: DICLOFENAC SODIUM 1% 100 GM GEL [4GM] TP SCH ×2 (09:00→16:55)
[2022-02-20] MEDS: PANTOPRAZOLE SODIUM 40 MG DR TABLET PO SCH (09:12)
[2022-02-20] MEDS: DULoxetine HCL 30 MG CAPSULE PO SCH (09:12)
[2022-02-20] MEDS: MULTIVITAMINS WITH MINERALS, THERAPEUTIC TABLET PO SCH (09:12)
[2022-02-20] MEDS: AmLODIPine BESYLATE 5 MG TABLET PO SCH ×2 (09:12→16:56)
[2022-02-20] MEDS: OMEGA-3/DHA/EPA/FISH OIL 1,000 MG CAPSULE PO SCH (09:13)
[2022-02-20] MEDS: METOPROLOL TARTRATE 25 MG TABLET PO SCH ×2 (09:13→16:56)
[2022-02-20 16:11] VITALS: BP 105/73
[2022-02-20] MEDS: LURASIDONE HCL 40 MG TABLET PO SCH (16:56)
[2022-02-20] MEDS: MELATONIN 5 MG TABLET PO SCH (20:48)
[2022-02-20] MEDS: VALPROIC ACID 250 MG/5 ML SOLUTION UDCUP PO SCH (20:48)
[2022-02-21] MEDS: OMEGA-3/DHA/EPA/FISH OIL 1,000 MG CAPSULE PO SCH (08:54)
[2022-02-21] MEDS: METOPROLOL TARTRATE 25 MG TABLET PO SCH ×2 (08:54→16:34)
[2022-02-21] MEDS: AmLODIPine BESYLATE 5 MG TABLET PO SCH ×2 (08:54→16:34)
[2022-02-21] MEDS: MULTIVITAMINS WITH MINERALS, THERAPEUTIC TABLET PO SCH (08:54)
[2022-02-21] MEDS: DULoxetine HCL 30 MG CAPSULE PO SCH (08:54)
[2022-02-21] MEDS: PANTOPRAZOLE SODIUM 40 MG DR TABLET PO SCH (08:54)
[2022-02-21] MEDS: DICLOFENAC SODIUM 1% 100 GM GEL [4GM] TP SCH ×2 (09:00→16:35)
[2022-02-21 10:45] VITALS: BP 100/59
[2022-02-21] MEDS: ACETAMINOPHEN 325 MG TABLET PO PRN (10:55)
[2022-02-21 16:12] VITALS: BP 100/68
[2022-02-21] MEDS: LURASIDONE HCL 40 MG TABLET PO SCH (16:34)
[2022-02-21] MEDS: MELATONIN 5 MG TABLET PO SCH (20:06)
[2022-02-21] MEDS: VALPROIC ACID 250 MG/5 ML SOLUTION UDCUP PO SCH (20:07)
[2022-02-22 08:00] VITALS: BP 117/74
[2022-02-22] MEDS: OMEGA-3/DHA/EPA/FISH OIL 1,000 MG CAPSULE PO SCH (09:10)
[2022-02-22] MEDS: DULoxetine HCL 30 MG CAPSULE PO SCH (09:10)
[2022-02-22] MEDS: MULTIVITAMINS WITH MINERALS, THERAPEUTIC TABLET PO SCH (09:10)
[2022-02-22] MEDS: PANTOPRAZOLE SODIUM 40 MG DR TABLET PO SCH (09:11)
[2022-02-22] MEDS: METOPROLOL TARTRATE 25 MG TABLET PO SCH ×2 (09:11→16:18)
[2022-02-22] MEDS: AmLODIPine BESYLATE 5 MG TABLET PO SCH ×2 (09:11→16:18)
[2022-02-22] MEDS: DICLOFENAC SODIUM 1% 100 GM GEL [4GM] TP SCH ×2 (09:12→17:19)
[2022-02-22 16:04] VITALS: BP 125/84
[2022-02-22] MEDS: LURASIDONE HCL 40 MG TABLET PO SCH (16:18)
[2022-02-22] MEDS: MELATONIN 5 MG TABLET PO SCH (20:18)
[2022-02-22] MEDS: VALPROIC ACID 250 MG/5 ML SOLUTION UDCUP PO SCH (20:19)
[2022-02-23 08:50] LABS: ALBUMIN 2.6 g/dL (3.4-5.0); BILIRUBIN,TOTAL 0.4 mg/dL (0.1-1.0); CALCIUM, TOTAL 8.8 mg/dL (8.8-10.5); CREATININE 2.16 mg/dL (0.60-1.30); POTASSIUM 4.9 mmol/L (3.5-5.1); TOTAL PROTEIN, SERUM 8.2 g/dL (6.4-8.2)
[2022-02-23 08:59] VITALS: BP_SYST 100; BP_SYST 118; BP_DIAS 5; BP_DIAS 63
[2022-02-23] MEDS: METOPROLOL TARTRATE 25 MG TABLET PO SCH ×2 (09:42→16:06)
[2022-02-23] MEDS: PANTOPRAZOLE SODIUM 40 MG DR TABLET PO SCH (09:42)
[2022-02-23] MEDS: MULTIVITAMINS WITH MINERALS, THERAPEUTIC TABLET PO SCH (09:42)
[2022-02-23] MEDS: AmLODIPine BESYLATE 5 MG TABLET PO SCH ×2 (09:42→16:06)
[2022-02-23] MEDS: DULoxetine HCL 30 MG CAPSULE PO SCH (09:42)
[2022-02-23] MEDS: OMEGA-3/DHA/EPA/FISH OIL 1,000 MG CAPSULE PO SCH (09:42)
[2022-02-23] MEDS: DICLOFENAC SODIUM 1% 100 GM GEL [4GM] TP SCH ×2 (09:43→16:06)
[2022-02-23] MEDS: LURASIDONE HCL 40 MG TABLET PO SCH (16:06)
[2022-02-23 16:20] VITALS: BP 130/80
[2022-02-23] MEDS: VALPROIC ACID 250 MG/5 ML SOLUTION UDCUP PO SCH (20:13)
[2022-02-23] MEDS: MELATONIN 5 MG TABLET PO SCH (20:13)
[2022-02-24] MEDS: PANTOPRAZOLE SODIUM 40 MG DR TABLET PO SCH (08:48)
[2022-02-24] MEDS: DULoxetine HCL 30 MG CAPSULE PO SCH (08:48)
[2022-02-24] MEDS: MULTIVITAMINS WITH MINERALS, THERAPEUTIC TABLET PO SCH (08:48)
[2022-02-24] MEDS: DICLOFENAC SODIUM 1% 100 GM GEL [4GM] TP SCH ×2 (08:49→17:20)
[2022-02-24] MEDS: OMEGA-3/DHA/EPA/FISH OIL 1,000 MG CAPSULE PO SCH (08:49)
[2022-02-24] MEDS: AmLODIPine BESYLATE 5 MG TABLET PO SCH ×2 (09:00→17:19)
[2022-02-24] MEDS: METOPROLOL TARTRATE 25 MG TABLET PO SCH ×3 (09:00→17:19)
[2022-02-24 09:15] VITALS: BP 109/68
[2022-02-24 16:30] VITALS: BP 123/74
[2022-02-24] MEDS: LURASIDONE HCL 40 MG TABLET PO SCH (17:19)
[2022-02-24] MEDS: MELATONIN 5 MG TABLET PO SCH (20:45)
[2022-02-24] MEDS: VALPROIC ACID 250 MG/5 ML SOLUTION UDCUP PO SCH (20:45)
[2022-02-25 08:35] VITALS: BP 114/61
[2022-02-25] MEDS: DULoxetine HCL 30 MG CAPSULE PO SCH (08:42)
[2022-02-25] MEDS: METOPROLOL TARTRATE 25 MG TABLET PO SCH ×2 (08:42→16:07)
[2022-02-25] MEDS: MULTIVITAMINS WITH MINERALS, THERAPEUTIC TABLET PO SCH (08:42)
[2022-02-25] MEDS: OMEGA-3/DHA/EPA/FISH OIL 1,000 MG CAPSULE PO SCH (08:42)
[2022-02-25] MEDS: PANTOPRAZOLE SODIUM 40 MG DR TABLET PO SCH (08:42)
[2022-02-25] MEDS: AmLODIPine BESYLATE 5 MG TABLET PO SCH ×2 (08:42→16:07)
[2022-02-25] MEDS: DICLOFENAC SODIUM 1% 100 GM GEL [4GM] TP SCH ×2 (09:00→17:40)
[2022-02-25] MEDS ORDERED: TUBERCULIN, PURIFIED PROTEIN DERIVATIVE 5 TU/0.1 ML SYRINGE ID ONE (12:00)
[2022-02-25 14:51] LABS: COVID AG,FIA SOURCE NASOPHARYNGEAL
[2022-02-25 16:02] VITALS: BP 99/79
[2022-02-25] MEDS ORDERED: PERMETHRIN 1% 60 ML LOTION TP ONE (17:00)
[2022-02-25] MEDS ORDERED: LURASIDONE HCL 60 MG TABLET PO SCH (17:30)
[2022-02-25] MEDS: MELATONIN 5 MG TABLET PO SCH (20:20)
[2022-02-25] MEDS: VALPROIC ACID 250 MG/5 ML SOLUTION UDCUP PO SCH (20:20)
[2022-02-26 08:15] VITALS: BP 102/69
[2022-02-26] MEDS: METOPROLOL TARTRATE 25 MG TABLET PO SCH ×2 (09:00→17:00)
[2022-02-26] MEDS: AmLODIPine BESYLATE 5 MG TABLET PO SCH ×2 (09:00→16:15)
[2022-02-26] MEDS: MULTIVITAMINS WITH MINERALS, THERAPEUTIC TABLET PO SCH (09:09)
[2022-02-26] MEDS: DULoxetine HCL 30 MG CAPSULE PO SCH (09:09)
[2022-02-26] MEDS: PANTOPRAZOLE SODIUM 40 MG DR TABLET PO SCH (09:10)
[2022-02-26] MEDS: DICLOFENAC SODIUM 1% 100 GM GEL [4GM] TP SCH ×2 (09:10→17:32)
[2022-02-26] MEDS: OMEGA-3/DHA/EPA/FISH OIL 1,000 MG CAPSULE PO SCH (09:10)
[2022-02-26 16:07] VITALS: BP 106/62
[2022-02-26] MEDS ORDERED: LURASIDONE HCL 80 MG TABLET PO SCH (17:30)
[2022-02-26] MEDS: VALPROIC ACID 250 MG/5 ML SOLUTION UDCUP PO SCH (20:10)
[2022-02-26] MEDS: MELATONIN 5 MG TABLET PO SCH (20:10)
[2022-02-27 08:10] VITALS: BP 145/88
[2022-02-27] MEDS: MULTIVITAMINS WITH MINERALS, THERAPEUTIC TABLET PO SCH (08:32)
[2022-02-27] MEDS: PANTOPRAZOLE SODIUM 40 MG DR TABLET PO SCH (08:32)
[2022-02-27] MEDS: AmLODIPine BESYLATE 5 MG TABLET PO SCH ×2 (08:32→16:12)
[2022-02-27] MEDS: DULoxetine HCL 30 MG CAPSULE PO SCH (08:32)
[2022-02-27] MEDS: OMEGA-3/DHA/EPA/FISH OIL 1,000 MG CAPSULE PO SCH (08:32)
[2022-02-27] MEDS: METOPROLOL TARTRATE 25 MG TABLET PO SCH ×2 (08:33→17:00)
[2022-02-27] MEDS: DICLOFENAC SODIUM 1% 100 GM GEL [4GM] TP SCH ×2 (09:00→16:12)
[2022-02-27 16:04] VITALS: BP 107/68
[2022-02-27] MEDS: LURASIDONE HCL 40 MG TABLET PO SCH (17:38)
[2022-02-27] MEDS: VALPROIC ACID 250 MG/5 ML SOLUTION UDCUP PO SCH (20:07)
[2022-02-27] MEDS: MELATONIN 5 MG TABLET PO SCH (20:07)
[2022-02-28 08:00] VITALS: BP 127/78
[2022-02-28] MEDS: DICLOFENAC SODIUM 1% 100 GM GEL [4GM] TP SCH ×2 (09:00→16:45)
[2022-02-28] MEDS: DULoxetine HCL 30 MG CAPSULE PO SCH (09:19)
[2022-02-28] MEDS: MULTIVITAMINS WITH MINERALS, THERAPEUTIC TABLET PO SCH (09:19)
[2022-02-28] MEDS: OMEGA-3/DHA/EPA/FISH OIL 1,000 MG CAPSULE PO SCH (09:19)
[2022-02-28] MEDS: PANTOPRAZOLE SODIUM 40 MG DR TABLET PO SCH (09:20)
[2022-02-28] MEDS: AmLODIPine BESYLATE 5 MG TABLET PO SCH ×2 (09:20→16:44)
[2022-02-28] MEDS: METOPROLOL TARTRATE 25 MG TABLET PO SCH ×2 (09:20→16:45)
[2022-02-28] MEDS: LURASIDONE HCL 40 MG TABLET PO SCH (16:44)
[2022-02-28] MEDS: MELATONIN 5 MG TABLET PO SCH (20:08)
[2022-02-28] MEDS: VALPROIC ACID 250 MG/5 ML SOLUTION UDCUP PO SCH (20:08)
[2022-03-01 08:41] VITALS: BP 128/80
[2022-03-01] MEDS: METOPROLOL TARTRATE 25 MG TABLET PO SCH ×2 (10:15→17:00)
[2022-03-01] MEDS: DULoxetine HCL 30 MG CAPSULE PO SCH (10:16)
[2022-03-01] MEDS: DICLOFENAC SODIUM 1% 100 GM GEL [4GM] TP SCH ×2 (10:16→17:01)
[2022-03-01] MEDS: OMEGA-3/DHA/EPA/FISH OIL 1,000 MG CAPSULE PO SCH (10:16)
[2022-03-01] MEDS: PANTOPRAZOLE SODIUM 40 MG DR TABLET PO SCH (10:16)
[2022-03-01] MEDS: MULTIVITAMINS WITH MINERALS, THERAPEUTIC TABLET PO SCH (10:16)
[2022-03-01] MEDS: AmLODIPine BESYLATE 5 MG TABLET PO SCH ×2 (10:16→17:01)
[2022-03-01 16:03] VITALS: BP 121/78
[2022-03-01] MEDS: LURASIDONE HCL 40 MG TABLET PO SCH (17:01)
[2022-03-01] MEDS: MELATONIN 5 MG TABLET PO SCH (20:22)
[2022-03-01] MEDS: VALPROIC ACID 250 MG/5 ML SOLUTION UDCUP PO SCH (20:22)
[2022-03-02 08:59] VITALS: BP 101/61
[2022-03-02] MEDS: DICLOFENAC SODIUM 1% 100 GM GEL [4GM] TP SCH ×2 (09:00→16:21)
[2022-03-02] MEDS: MULTIVITAMINS WITH MINERALS, THERAPEUTIC TABLET PO SCH (09:11)
[2022-03-02] MEDS: OMEGA-3/DHA/EPA/FISH OIL 1,000 MG CAPSULE PO SCH (09:11)
[2022-03-02] MEDS: METOPROLOL TARTRATE 25 MG TABLET PO SCH ×2 (09:11→16:21)
[2022-03-02] MEDS: DULoxetine HCL 30 MG CAPSULE PO SCH (09:11)
[2022-03-02] MEDS: PANTOPRAZOLE SODIUM 40 MG DR TABLET PO SCH (09:11)
[2022-03-02] MEDS: AmLODIPine BESYLATE 5 MG TABLET PO SCH ×2 (09:11→16:21)
[2022-03-02 16:13] VITALS: BP 121/72
[2022-03-02] MEDS: LURASIDONE HCL 40 MG TABLET PO SCH (16:21)
[2022-03-02] MEDS: VALPROIC ACID 250 MG/5 ML SOLUTION UDCUP PO SCH (20:37)
[2022-03-02] MEDS: MELATONIN 5 MG TABLET PO SCH (20:37)
[2022-03-03] MEDS: PANTOPRAZOLE SODIUM 40 MG DR TABLET PO SCH (08:34)
[2022-03-03] MEDS: METOPROLOL TARTRATE 25 MG TABLET PO SCH ×2 (08:34→16:30)
[2022-03-03] MEDS: DULoxetine HCL 30 MG CAPSULE PO SCH (08:35)
[2022-03-03] MEDS: AmLODIPine BESYLATE 5 MG TABLET PO SCH ×2 (08:35→16:31)
[2022-03-03] MEDS: DICLOFENAC SODIUM 1% 100 GM GEL [4GM] TP SCH ×2 (08:35→16:31)
[2022-03-03] MEDS: MULTIVITAMINS WITH MINERALS, THERAPEUTIC TABLET PO SCH (08:35)
[2022-03-03] MEDS: OMEGA-3/DHA/EPA/FISH OIL 1,000 MG CAPSULE PO SCH (08:35)
[2022-03-03 09:29] VITALS: BP 125/77
[2022-03-03] MEDS: LURASIDONE HCL 40 MG TABLET PO SCH (16:30)
[2022-03-03 16:43] VITALS: BP 100/91
[2022-03-03] MEDS: VALPROIC ACID 250 MG/5 ML SOLUTION UDCUP PO SCH (20:12)
[2022-03-03] MEDS: MELATONIN 5 MG TABLET PO SCH (20:12)
[2022-03-04 03:00] VITALS: BP 136/72
[2022-03-04] MEDS: DICLOFENAC SODIUM 1% 100 GM GEL [4GM] TP SCH ×2 (09:00→16:31)
[2022-03-04] MEDS: DULoxetine HCL 30 MG CAPSULE PO SCH (09:17)
[2022-03-04] MEDS: MULTIVITAMINS WITH MINERALS, THERAPEUTIC TABLET PO SCH (09:18)
[2022-03-04] MEDS: AmLODIPine BESYLATE 5 MG TABLET PO SCH ×2 (09:18→16:08)
[2022-03-04] MEDS: OMEGA-3/DHA/EPA/FISH OIL 1,000 MG CAPSULE PO SCH (09:18)
[2022-03-04] MEDS: METOPROLOL TARTRATE 25 MG TABLET PO SCH ×2 (09:18→16:31)
[2022-03-04] MEDS: PANTOPRAZOLE SODIUM 40 MG DR TABLET PO SCH (09:18)
[2022-03-04] MEDS: LURASIDONE HCL 60 MG TABLET PO SCH (16:33)
[2022-03-04] MEDS: MELATONIN 5 MG TABLET PO SCH (20:07)
[2022-03-04] MEDS: VALPROIC ACID 250 MG/5 ML SOLUTION UDCUP PO SCH (20:08)
[2022-03-04 21:05] LABS: COVID AG,FIA SOURCE NASAL SWAB
[2022-03-05 08:06] VITALS: BP_SYST 119; BP_SYST 120; BP_DIAS 58; BP_DIAS 78
[2022-03-05] MEDS: DICLOFENAC SODIUM 1% 100 GM GEL [4GM] TP SCH ×2 (09:09→16:27)
[2022-03-05] MEDS: DULoxetine HCL 30 MG CAPSULE PO SCH (09:09)
[2022-03-05] MEDS: MULTIVITAMINS WITH MINERALS, THERAPEUTIC TABLET PO SCH (09:09)
[2022-03-05] MEDS: METOPROLOL TARTRATE 25 MG TABLET PO SCH ×2 (09:09→16:26)
[2022-03-05] MEDS: AmLODIPine BESYLATE 5 MG TABLET PO SCH ×2 (09:09→16:26)
[2022-03-05] MEDS: OMEGA-3/DHA/EPA/FISH OIL 1,000 MG CAPSULE PO SCH (09:09)
[2022-03-05] MEDS: PANTOPRAZOLE SODIUM 40 MG DR TABLET PO SCH (09:10)
[2022-03-05] MEDS: PALIPERIDONE PALMITATE 117 MG/0.75 ML SYRINGE IM SCH (12:06)
[2022-03-05 16:09] VITALS: BP 119/78
[2022-03-05] MEDS: LURASIDONE HCL 60 MG TABLET PO SCH (16:40)
[2022-03-05] MEDS: MELATONIN 5 MG TABLET PO SCH (20:27)
[2022-03-05] MEDS: VALPROIC ACID 250 MG/5 ML SOLUTION UDCUP PO SCH (20:27)
[2022-03-06 09:03] VITALS: BP 140/85
[2022-03-06] MEDS: DICLOFENAC SODIUM 1% 100 GM GEL [4GM] TP SCH ×2 (09:47→16:45)
[2022-03-06] MEDS: METOPROLOL TARTRATE 25 MG TABLET PO SCH ×2 (09:47→16:45)
[2022-03-06] MEDS: MULTIVITAMINS WITH MINERALS, THERAPEUTIC TABLET PO SCH (09:47)
[2022-03-06] MEDS: OMEGA-3/DHA/EPA/FISH OIL 1,000 MG CAPSULE PO SCH (09:47)
[2022-03-06] MEDS: AmLODIPine BESYLATE 5 MG TABLET PO SCH ×2 (09:47→16:45)
[2022-03-06] MEDS: DULoxetine HCL 30 MG CAPSULE PO SCH (09:47)
[2022-03-06] MEDS: PANTOPRAZOLE SODIUM 40 MG DR TABLET PO SCH (09:47)
[2022-03-06 17:13] VITALS: BP 108/65
[2022-03-06] MEDS ORDERED: LURASIDONE HCL 80 MG TABLET PO SCH (17:30)
[2022-03-06] MEDS ORDERED: LURASIDONE HCL 60 MG TABLET PO SCH (17:30)
[2022-03-06] MEDS: VALPROIC ACID 250 MG/5 ML SOLUTION UDCUP PO SCH (20:40)
[2022-03-06] MEDS: MELATONIN 5 MG TABLET PO SCH (20:41)
[2022-03-07 08:10] VITALS: BP 133/79
[2022-03-07] MEDS: DULoxetine HCL 30 MG CAPSULE PO SCH (08:42)
[2022-03-07] MEDS: PANTOPRAZOLE SODIUM 40 MG DR TABLET PO SCH (08:42)
[2022-03-07] MEDS: METOPROLOL TARTRATE 25 MG TABLET PO SCH ×2 (08:42→16:14)
[2022-03-07] MEDS: OMEGA-3/DHA/EPA/FISH OIL 1,000 MG CAPSULE PO SCH (08:42)
[2022-03-07] MEDS: MULTIVITAMINS WITH MINERALS, THERAPEUTIC TABLET PO SCH (08:42)
[2022-03-07] MEDS: DICLOFENAC SODIUM 1% 100 GM GEL [4GM] TP SCH ×2 (08:43→16:41)
[2022-03-07] MEDS: AmLODIPine BESYLATE 5 MG TABLET PO SCH ×2 (08:43→16:14)
[2022-03-07 09:35] VITALS: BP 110/70
[2022-03-07 16:12] VITALS: BP 107/78
[2022-03-07] MEDS: LURASIDONE HCL 60 MG TABLET PO SCH (16:14)
[2022-03-07] MEDS: MELATONIN 5 MG TABLET PO SCH (20:20)
[2022-03-07] MEDS: VALPROIC ACID 250 MG/5 ML SOLUTION UDCUP PO SCH (20:20)
[2022-03-08 09:35] VITALS: BP 132/75
[2022-03-08] MEDS: METOPROLOL TARTRATE 25 MG TABLET PO SCH ×2 (09:48→17:18)
[2022-03-08] MEDS: OMEGA-3/DHA/EPA/FISH OIL 1,000 MG CAPSULE PO SCH (09:48)
[2022-03-08] MEDS: MULTIVITAMINS WITH MINERALS, THERAPEUTIC TABLET PO SCH (09:48)
[2022-03-08] MEDS: DULoxetine HCL 30 MG CAPSULE PO SCH (09:48)
[2022-03-08] MEDS: DICLOFENAC SODIUM 1% 100 GM GEL [4GM] TP SCH ×2 (09:48→16:25)
[2022-03-08] MEDS: PANTOPRAZOLE SODIUM 40 MG DR TABLET PO SCH (09:48)
[2022-03-08] MEDS: AmLODIPine BESYLATE 5 MG TABLET PO SCH ×2 (09:52→16:26)
[2022-03-08 16:07] VITALS: BP 123/70
[2022-03-08] MEDS: LURASIDONE HCL 60 MG TABLET PO SCH (17:19)
[2022-03-08] MEDS: MELATONIN 5 MG TABLET PO SCH (20:25)
[2022-03-08] MEDS: VALPROIC ACID 250 MG/5 ML SOLUTION UDCUP PO SCH (20:25)
[2022-03-09 08:18] VITALS: BP 105/63
[2022-03-09] MEDS: METOPROLOL TARTRATE 25 MG TABLET PO SCH ×2 (09:00→16:22)
[2022-03-09] MEDS: AmLODIPine BESYLATE 5 MG TABLET PO SCH ×2 (09:00→16:22)
[2022-03-09] MEDS: DULoxetine HCL 30 MG CAPSULE PO SCH (10:10)
[2022-03-09] MEDS: PANTOPRAZOLE SODIUM 40 MG DR TABLET PO SCH (10:10)
[2022-03-09] MEDS: MULTIVITAMINS WITH MINERALS, THERAPEUTIC TABLET PO SCH (10:10)
[2022-03-09] MEDS: OMEGA-3/DHA/EPA/FISH OIL 1,000 MG CAPSULE PO SCH (10:10)
[2022-03-09] MEDS: DICLOFENAC SODIUM 1% 100 GM GEL [4GM] TP SCH ×2 (10:24→16:23)
[2022-03-09 12:07] VITALS: BP 105/63
[2022-03-09 16:47] VITALS: BP 144/87
[2022-03-09] MEDS: LURASIDONE HCL 60 MG TABLET PO SCH (17:08)
[2022-03-09] MEDS: MELATONIN 5 MG TABLET PO SCH (20:36)
[2022-03-09] MEDS: VALPROIC ACID 250 MG/5 ML SOLUTION UDCUP PO SCH (20:39)
[2022-03-10] MEDS: DICLOFENAC SODIUM 1% 100 GM GEL [4GM] TP SCH ×2 (09:00→16:20)
[2022-03-10 09:15] VITALS: BP 142/88
[2022-03-10] MEDS: ACETAMINOPHEN 325 MG TABLET PO PRN (09:34)
[2022-03-10] MEDS: OMEGA-3/DHA/EPA/FISH OIL 1,000 MG CAPSULE PO SCH (09:35)
[2022-03-10] MEDS: METOPROLOL TARTRATE 25 MG TABLET PO SCH ×2 (09:35→16:20)
[2022-03-10] MEDS: PANTOPRAZOLE SODIUM 40 MG DR TABLET PO SCH (09:36)
[2022-03-10] MEDS: AmLODIPine BESYLATE 5 MG TABLET PO SCH ×2 (09:36→16:20)
[2022-03-10] MEDS: MULTIVITAMINS WITH MINERALS, THERAPEUTIC TABLET PO SCH (09:36)
[2022-03-10] MEDS: DULoxetine HCL 30 MG CAPSULE PO SCH (09:37)
[2022-03-10 16:09] VITALS: BP 120/77
[2022-03-10] MEDS: LURASIDONE HCL 60 MG TABLET PO SCH (16:47)
[2022-03-10] MEDS: MELATONIN 5 MG TABLET PO SCH (20:18)
[2022-03-10] MEDS: VALPROIC ACID 250 MG/5 ML SOLUTION UDCUP PO SCH (20:18)
[2022-03-11 08:30] VITALS: BP 136/76
[2022-03-11] MEDS: OMEGA-3/DHA/EPA/FISH OIL 1,000 MG CAPSULE PO SCH (08:38)
[2022-03-11] MEDS: METOPROLOL TARTRATE 25 MG TABLET PO SCH ×2 (08:38→16:39)
[2022-03-11] MEDS: MULTIVITAMINS WITH MINERALS, THERAPEUTIC TABLET PO SCH (08:38)
[2022-03-11] MEDS: PANTOPRAZOLE SODIUM 40 MG DR TABLET PO SCH (08:38)
[2022-03-11] MEDS: AmLODIPine BESYLATE 5 MG TABLET PO SCH ×2 (08:38→16:39)
[2022-03-11] MEDS: DULoxetine HCL 30 MG CAPSULE PO SCH (08:38)
[2022-03-11] MEDS: DICLOFENAC SODIUM 1% 100 GM GEL [4GM] TP SCH ×2 (09:00→16:39)
[2022-03-11] MEDS: ACETAMINOPHEN 325 MG TABLET PO PRN (13:46)
[2022-03-11 14:25] LABS: COVID AG,FIA SOURCE NASOPHARYNGEAL
[2022-03-11 16:09] VITALS: BP 110/70
[2022-03-11] MEDS: LURASIDONE HCL 60 MG TABLET PO SCH (17:41)
[2022-03-11] MEDS: VALPROIC ACID 250 MG/5 ML SOLUTION UDCUP PO SCH (20:42)
[2022-03-11] MEDS: MELATONIN 5 MG TABLET PO SCH (20:42)
[2022-03-12 08:24] VITALS: BP 144/94
[2022-03-12] MEDS: DULoxetine HCL 30 MG CAPSULE PO SCH (08:32)
[2022-03-12] MEDS: PANTOPRAZOLE SODIUM 40 MG DR TABLET PO SCH (08:32)
[2022-03-12] MEDS: MULTIVITAMINS WITH MINERALS, THERAPEUTIC TABLET PO SCH (08:32)
[2022-03-12] MEDS: OMEGA-3/DHA/EPA/FISH OIL 1,000 MG CAPSULE PO SCH (08:32)
[2022-03-12] MEDS: METOPROLOL TARTRATE 25 MG TABLET PO SCH ×2 (08:32→16:24)
[2022-03-12] MEDS: AmLODIPine BESYLATE 5 MG TABLET PO SCH ×2 (08:33→16:24)
[2022-03-12] MEDS: DICLOFENAC SODIUM 1% 100 GM GEL [4GM] TP SCH ×2 (08:33→16:25)
[2022-03-12 16:25] VITALS: BP 108/57
[2022-03-12] MEDS: ACETAMINOPHEN 325 MG TABLET PO PRN (16:54)
[2022-03-12] MEDS: LURASIDONE HCL 60 MG TABLET PO SCH (17:30)
[2022-03-12] MEDS: VALPROIC ACID 250 MG/5 ML SOLUTION UDCUP PO SCH (21:11)
[2022-03-12] MEDS: MELATONIN 5 MG TABLET PO SCH (21:11)
[2022-03-13] MEDS: OMEGA-3/DHA/EPA/FISH OIL 1,000 MG CAPSULE PO SCH (09:00)
[2022-03-13] MEDS: DICLOFENAC SODIUM 1% 100 GM GEL [4GM] TP SCH ×2 (09:00→16:53)
[2022-03-13] MEDS: METOPROLOL TARTRATE 25 MG TABLET PO SCH ×2 (12:42→16:53)
[2022-03-13] MEDS: PANTOPRAZOLE SODIUM 40 MG DR TABLET PO SCH (12:42)
[2022-03-13] MEDS: DULoxetine HCL 30 MG CAPSULE PO SCH (12:42)
[2022-03-13] MEDS: MULTIVITAMINS WITH MINERALS, THERAPEUTIC TABLET PO SCH (12:42)
[2022-03-13] MEDS: AmLODIPine BESYLATE 5 MG TABLET PO SCH ×2 (12:42→16:53)
[2022-03-13 16:13] VITALS: BP 123/77
[2022-03-13] MEDS: LURASIDONE HCL 60 MG TABLET PO SCH (16:53)
[2022-03-13 22:02] VITALS: BP 125/68
[2022-03-13] MEDS: ACETAMINOPHEN 325 MG TABLET PO PRN (22:02)
[2022-03-13] MEDS: MELATONIN 5 MG TABLET PO SCH (22:03)
[2022-03-13] MEDS: VALPROIC ACID 250 MG/5 ML SOLUTION UDCUP PO SCH (22:03)
[2022-03-14] MEDS: DICLOFENAC SODIUM 1% 100 GM GEL [4GM] TP SCH ×2 (09:00→16:47)
[2022-03-14] MEDS: MULTIVITAMINS WITH MINERALS, THERAPEUTIC TABLET PO SCH (09:50)
[2022-03-14] MEDS: DULoxetine HCL 30 MG CAPSULE PO SCH (09:50)
[2022-03-14] MEDS: OMEGA-3/DHA/EPA/FISH OIL 1,000 MG CAPSULE PO SCH (09:50)
[2022-03-14] MEDS: PANTOPRAZOLE SODIUM 40 MG DR TABLET PO SCH (09:50)
[2022-03-14] MEDS: METOPROLOL TARTRATE 25 MG TABLET PO SCH ×2 (09:50→16:08)
[2022-03-14] MEDS: AmLODIPine BESYLATE 5 MG TABLET PO SCH ×2 (09:51→16:07)
[2022-03-14 10:11] VITALS: BP 113/61
[2022-03-14] MEDS: ACETAMINOPHEN 325 MG TABLET PO PRN (12:31)
[2022-03-14] MEDS: LURASIDONE HCL 60 MG TABLET PO SCH (16:07)
[2022-03-14 16:46] VITALS: BP 123/66
[2022-03-14 17:34] VITALS: BP 123/66
[2022-03-14] MEDS: VALPROIC ACID 250 MG/5 ML SOLUTION UDCUP PO SCH (20:15)
[2022-03-14] MEDS: MELATONIN 5 MG TABLET PO SCH (20:15)
[2022-03-15 08:04] VITALS: BP 110/72
[2022-03-15 08:05] VITALS: BP 110/72
[2022-03-15] MEDS: DULoxetine HCL 30 MG CAPSULE PO SCH (08:45)
[2022-03-15] MEDS: ACETAMINOPHEN 325 MG TABLET PO PRN (08:45)
[2022-03-15] MEDS: MULTIVITAMINS WITH MINERALS, THERAPEUTIC TABLET PO SCH (08:45)
[2022-03-15] MEDS: METOPROLOL TARTRATE 25 MG TABLET PO SCH ×2 (08:45→16:35)
[2022-03-15] MEDS: AmLODIPine BESYLATE 5 MG TABLET PO SCH ×2 (08:45→16:35)
[2022-03-15] MEDS: OMEGA-3/DHA/EPA/FISH OIL 1,000 MG CAPSULE PO SCH (08:45)
[2022-03-15] MEDS: PANTOPRAZOLE SODIUM 40 MG DR TABLET PO SCH (08:45)
[2022-03-15] MEDS: DICLOFENAC SODIUM 1% 100 GM GEL [4GM] TP SCH ×2 (09:00→16:35)
[2022-03-15 16:28] VITALS: BP 140/81
[2022-03-15 16:31] VITALS: BP 141/81
[2022-03-15] MEDS: LURASIDONE HCL 60 MG TABLET PO SCH (16:35)
[2022-03-15] MEDS: VALPROIC ACID 250 MG/5 ML SOLUTION UDCUP PO SCH (20:51)
[2022-03-15] MEDS: MELATONIN 5 MG TABLET PO SCH (20:51)
[2022-03-16 08:18] VITALS: BP 125/68
[2022-03-16] MEDS: OMEGA-3/DHA/EPA/FISH OIL 1,000 MG CAPSULE PO SCH (08:43)
[2022-03-16] MEDS: PANTOPRAZOLE SODIUM 40 MG DR TABLET PO SCH (08:43)
[2022-03-16] MEDS: MULTIVITAMINS WITH MINERALS, THERAPEUTIC TABLET PO SCH (08:43)
[2022-03-16] MEDS: METOPROLOL TARTRATE 25 MG TABLET PO SCH ×2 (08:43→17:01)
[2022-03-16] MEDS: DULoxetine HCL 30 MG CAPSULE PO SCH (08:43)
[2022-03-16] MEDS: AmLODIPine BESYLATE 5 MG TABLET PO SCH ×2 (08:43→17:01)
[2022-03-16] MEDS: DICLOFENAC SODIUM 1% 100 GM GEL [4GM] TP SCH ×2 (08:43→17:00)
[2022-03-16] MEDS: ACETAMINOPHEN 325 MG TABLET PO PRN (08:47)
[2022-03-16 16:11] VITALS: BP 114/70
[2022-03-16] MEDS: LURASIDONE HCL 60 MG TABLET PO SCH (17:00)
[2022-03-16] MEDS: VALPROIC ACID 250 MG/5 ML SOLUTION UDCUP PO SCH (20:42)
[2022-03-16] MEDS: MELATONIN 5 MG TABLET PO SCH (20:42)
[2022-03-17 08:04] VITALS: BP 126/68
[2022-03-17] MEDS: OMEGA-3/DHA/EPA/FISH OIL 1,000 MG CAPSULE PO SCH (09:36)
[2022-03-17] MEDS: MULTIVITAMINS WITH MINERALS, THERAPEUTIC TABLET PO SCH (09:36)
[2022-03-17] MEDS: DULoxetine HCL 30 MG CAPSULE PO SCH (09:36)
[2022-03-17] MEDS: METOPROLOL TARTRATE 25 MG TABLET PO SCH ×2 (09:37→16:34)
[2022-03-17] MEDS: AmLODIPine BESYLATE 5 MG TABLET PO SCH ×2 (09:37→16:34)
[2022-03-17] MEDS: PANTOPRAZOLE SODIUM 40 MG DR TABLET PO SCH (09:38)
[2022-03-17] MEDS: DICLOFENAC SODIUM 1% 100 GM GEL [4GM] TP SCH ×2 (09:38→16:34)
[2022-03-17 16:17] VITALS: BP 107/69
[2022-03-17] MEDS: LURASIDONE HCL 60 MG TABLET PO SCH (17:43)
[2022-03-17] MEDS: VALPROIC ACID 250 MG/5 ML SOLUTION UDCUP PO SCH (20:47)
[2022-03-17] MEDS: MELATONIN 5 MG TABLET PO SCH (20:54)
[2022-03-18 04:06] VITALS: BP 115/71
[2022-03-18 08:33] VITALS: BP 120/72
[2022-03-18] MEDS: METOPROLOL TARTRATE 25 MG TABLET PO SCH ×2 (08:55→16:40)
[2022-03-18] MEDS: DULoxetine HCL 30 MG CAPSULE PO SCH (08:55)
[2022-03-18] MEDS: PANTOPRAZOLE SODIUM 40 MG DR TABLET PO SCH (08:55)
[2022-03-18] MEDS: OMEGA-3/DHA/EPA/FISH OIL 1,000 MG CAPSULE PO SCH (08:55)
[2022-03-18] MEDS: AmLODIPine BESYLATE 5 MG TABLET PO SCH ×2 (08:55→16:40)
[2022-03-18] MEDS: MULTIVITAMINS WITH MINERALS, THERAPEUTIC TABLET PO SCH (08:55)
[2022-03-18] MEDS: DICLOFENAC SODIUM 1% 100 GM GEL [4GM] TP SCH ×2 (09:00→16:41)
[2022-03-18] MEDS: ACETAMINOPHEN 325 MG TABLET PO PRN (09:55)
[2022-03-18 16:26] VITALS: BP 102/63
[2022-03-18 16:29] LABS: COVID AG,FIA SOURCE NASAL SWAB
[2022-03-18] MEDS: LURASIDONE HCL 40 MG TABLET PO SCH (16:40)
[2022-03-18] MEDS: MELATONIN 5 MG TABLET PO SCH (21:01)
[2022-03-18] MEDS: VALPROIC ACID 250 MG/5 ML SOLUTION UDCUP PO SCH (21:01)
[2022-03-19 08:03] VITALS: BP 112/67
[2022-03-19] MEDS: DICLOFENAC SODIUM 1% 100 GM GEL [4GM] TP SCH ×2 (09:00→17:19)
[2022-03-19] MEDS: OMEGA-3/DHA/EPA/FISH OIL 1,000 MG CAPSULE PO SCH (09:05)
[2022-03-19] MEDS: MULTIVITAMINS WITH MINERALS, THERAPEUTIC TABLET PO SCH (09:05)
[2022-03-19] MEDS: DULoxetine HCL 30 MG CAPSULE PO SCH (09:05)
[2022-03-19] MEDS: METOPROLOL TARTRATE 25 MG TABLET PO SCH ×2 (09:05→17:19)
[2022-03-19] MEDS: PANTOPRAZOLE SODIUM 40 MG DR TABLET PO SCH (09:05)
[2022-03-19] MEDS: AmLODIPine BESYLATE 5 MG TABLET PO SCH ×2 (09:05→17:20)
[2022-03-19] MEDS: ACETAMINOPHEN 325 MG TABLET PO PRN (09:30)
[2022-03-19 16:02] VITALS: BP 118/66
[2022-03-19] MEDS: LURASIDONE HCL 40 MG TABLET PO SCH (17:19)
[2022-03-19] MEDS: VALPROIC ACID 250 MG/5 ML SOLUTION UDCUP PO SCH (20:50)
[2022-03-19] MEDS: MELATONIN 5 MG TABLET PO SCH (20:50)
[2022-03-20] MEDS: DICLOFENAC SODIUM 1% 100 GM GEL [4GM] TP SCH ×2 (08:15→16:45)
[2022-03-20] MEDS: MULTIVITAMINS WITH MINERALS, THERAPEUTIC TABLET PO SCH (08:15)
[2022-03-20] MEDS: METOPROLOL TARTRATE 25 MG TABLET PO SCH ×2 (08:15→16:45)
[2022-03-20 08:16] VITALS: BP 110/60
[2022-03-20] MEDS: OMEGA-3/DHA/EPA/FISH OIL 1,000 MG CAPSULE PO SCH (08:16)
[2022-03-20] MEDS: ACETAMINOPHEN 325 MG TABLET PO PRN (08:16)
[2022-03-20] MEDS: DULoxetine HCL 30 MG CAPSULE PO SCH (08:16)
[2022-03-20] MEDS: PANTOPRAZOLE SODIUM 40 MG DR TABLET PO SCH (08:16)
[2022-03-20] MEDS: AmLODIPine BESYLATE 5 MG TABLET PO SCH ×2 (08:16→16:45)
[2022-03-20] MEDS: NICOTINE 7 MG/24 HOUR PATCH TD SCH (08:16)
[2022-03-20 09:16] VITALS: BP 112/64
[2022-03-20 16:00] VITALS: BP 110/70
[2022-03-20 16:40] VITALS: BP 110/70
[2022-03-20] MEDS: LURASIDONE HCL 40 MG TABLET PO SCH (16:45)
[2022-03-20] MEDS: MELATONIN 5 MG TABLET PO SCH (20:40)
[2022-03-20] MEDS: VALPROIC ACID 250 MG/5 ML SOLUTION UDCUP PO SCH (20:40)
[2022-03-21 08:00] VITALS: BP 138/88
[2022-03-21] MEDS: PANTOPRAZOLE SODIUM 40 MG DR TABLET PO SCH (08:39)
[2022-03-21] MEDS: AmLODIPine BESYLATE 5 MG TABLET PO SCH ×2 (08:39→16:32)
[2022-03-21] MEDS: MULTIVITAMINS WITH MINERALS, THERAPEUTIC TABLET PO SCH (08:39)
[2022-03-21] MEDS: METOPROLOL TARTRATE 25 MG TABLET PO SCH ×2 (08:40→16:32)
[2022-03-21] MEDS: OMEGA-3/DHA/EPA/FISH OIL 1,000 MG CAPSULE PO SCH (08:40)
[2022-03-21] MEDS: DULoxetine HCL 30 MG CAPSULE PO SCH (08:40)
[2022-03-21] MEDS: NICOTINE 7 MG/24 HOUR PATCH TD SCH (08:40)
[2022-03-21] MEDS: DICLOFENAC SODIUM 1% 100 GM GEL [4GM] TP SCH ×2 (08:41→16:33)
[2022-03-21 16:08] VITALS: BP 122/75
[2022-03-21] MEDS: LURASIDONE HCL 40 MG TABLET PO SCH (16:32)
[2022-03-21] MEDS: MELATONIN 5 MG TABLET PO SCH (20:29)
[2022-03-21] MEDS: VALPROIC ACID 250 MG/5 ML SOLUTION UDCUP PO SCH (20:30)
[2022-03-22] MEDS: OMEGA-3/DHA/EPA/FISH OIL 1,000 MG CAPSULE PO SCH (08:45)
[2022-03-22] MEDS: PANTOPRAZOLE SODIUM 40 MG DR TABLET PO SCH (08:45)
[2022-03-22] MEDS: MULTIVITAMINS WITH MINERALS, THERAPEUTIC TABLET PO SCH (08:45)
[2022-03-22] MEDS: DULoxetine HCL 30 MG CAPSULE PO SCH (08:45)
[2022-03-22] MEDS: AmLODIPine BESYLATE 5 MG TABLET PO SCH ×2 (08:45→16:56)
[2022-03-22] MEDS: DICLOFENAC SODIUM 1% 100 GM GEL [4GM] TP SCH ×2 (08:46→16:56)
[2022-03-22] MEDS: NICOTINE 7 MG/24 HOUR PATCH TD SCH (08:48)
[2022-03-22] MEDS: METOPROLOL TARTRATE 25 MG TABLET PO SCH ×2 (08:50→16:56)
[2022-03-22 16:18] VITALS: BP 104/76
[2022-03-22] MEDS: LURASIDONE HCL 40 MG TABLET PO SCH (16:56)
[2022-03-22] MEDS: VALPROIC ACID 250 MG/5 ML SOLUTION UDCUP PO SCH (20:35)
[2022-03-22] MEDS: MELATONIN 5 MG TABLET PO SCH (20:35)
[2022-03-23 08:34] VITALS: BP 118/62
[2022-03-23] MEDS: NICOTINE 7 MG/24 HOUR PATCH TD SCH (09:59)
[2022-03-23] MEDS: METOPROLOL TARTRATE 25 MG TABLET PO SCH ×2 (09:59→16:03)
[2022-03-23] MEDS: OMEGA-3/DHA/EPA/FISH OIL 1,000 MG CAPSULE PO SCH (09:59)
[2022-03-23] MEDS: DULoxetine HCL 30 MG CAPSULE PO SCH (09:59)
[2022-03-23] MEDS: PANTOPRAZOLE SODIUM 40 MG DR TABLET PO SCH (09:59)
[2022-03-23] MEDS: AmLODIPine BESYLATE 5 MG TABLET PO SCH ×2 (09:59→16:03)
[2022-03-23] MEDS: MULTIVITAMINS WITH MINERALS, THERAPEUTIC TABLET PO SCH (09:59)
[2022-03-23] MEDS: DICLOFENAC SODIUM 1% 100 GM GEL [4GM] TP SCH ×2 (10:00→16:04)
[2022-03-23] MEDS: LURASIDONE HCL 40 MG TABLET PO SCH (16:03)
[2022-03-23 17:03] VITALS: BP 107/77
[2022-03-23] MEDS: VALPROIC ACID 250 MG/5 ML SOLUTION UDCUP PO SCH (20:05)
[2022-03-23] MEDS: MELATONIN 5 MG TABLET PO SCH (20:05)
[2022-03-24] MEDS: PANTOPRAZOLE SODIUM 40 MG DR TABLET PO SCH (08:49)
[2022-03-24] MEDS: AmLODIPine BESYLATE 5 MG TABLET PO SCH ×2 (08:49→16:02)
[2022-03-24] MEDS: MULTIVITAMINS WITH MINERALS, THERAPEUTIC TABLET PO SCH (08:49)
[2022-03-24] MEDS: DULoxetine HCL 30 MG CAPSULE PO SCH (08:49)
[2022-03-24] MEDS: OMEGA-3/DHA/EPA/FISH OIL 1,000 MG CAPSULE PO SCH (08:49)
[2022-03-24] MEDS: NICOTINE 7 MG/24 HOUR PATCH TD SCH (08:49)
[2022-03-24] MEDS: METOPROLOL TARTRATE 25 MG TABLET PO SCH ×2 (08:50→16:02)
[2022-03-24] MEDS: DICLOFENAC SODIUM 1% 100 GM GEL [4GM] TP SCH ×2 (08:51→16:03)
[2022-03-24 08:59] VITALS: BP 121/79
[2022-03-24] MEDS: LURASIDONE HCL 40 MG TABLET PO SCH (16:02)
[2022-03-24 16:03] VITALS: BP 102/61
[2022-03-24] MEDS: VALPROIC ACID 250 MG/5 ML SOLUTION UDCUP PO SCH (20:10)
[2022-03-24] MEDS: MELATONIN 5 MG TABLET PO SCH (20:10)
[2022-03-25 08:07] VITALS: BP 142/82
[2022-03-25] MEDS: PANTOPRAZOLE SODIUM 40 MG DR TABLET PO SCH (08:54)
[2022-03-25] MEDS: MULTIVITAMINS WITH MINERALS, THERAPEUTIC TABLET PO SCH (08:54)
[2022-03-25] MEDS: METOPROLOL TARTRATE 25 MG TABLET PO SCH ×2 (08:55→16:10)
[2022-03-25] MEDS: OMEGA-3/DHA/EPA/FISH OIL 1,000 MG CAPSULE PO SCH (08:55)
[2022-03-25] MEDS: AmLODIPine BESYLATE 5 MG TABLET PO SCH ×2 (08:55→16:10)
[2022-03-25] MEDS: DULoxetine HCL 30 MG CAPSULE PO SCH (08:55)
[2022-03-25] MEDS: DICLOFENAC SODIUM 1% 100 GM GEL [4GM] TP SCH ×2 (09:00→16:11)
[2022-03-25] MEDS: NICOTINE 7 MG/24 HOUR PATCH TD SCH (09:00)
[2022-03-25 15:24] LABS: COVID AG,FIA SOURCE NASOPHARYNGEAL
[2022-03-25 16:00] VITALS: BP 134/80
[2022-03-25] MEDS: LURASIDONE HCL 40 MG TABLET PO SCH (17:54)
[2022-03-25] MEDS: MELATONIN 5 MG TABLET PO SCH (20:07)
[2022-03-25] MEDS: VALPROIC ACID 250 MG/5 ML SOLUTION UDCUP PO SCH (20:08)
[2022-03-26 01:15] VITALS: BP 113/79
[2022-03-26 09:01] VITALS: BP 118/80
[2022-03-26] MEDS: DULoxetine HCL 30 MG CAPSULE PO SCH (09:05)
[2022-03-26] MEDS: AmLODIPine BESYLATE 5 MG TABLET PO SCH ×2 (09:05→16:36)
[2022-03-26] MEDS: METOPROLOL TARTRATE 25 MG TABLET PO SCH ×2 (09:05→16:36)
[2022-03-26] MEDS: PANTOPRAZOLE SODIUM 40 MG DR TABLET PO SCH (09:05)
[2022-03-26] MEDS: MULTIVITAMINS WITH MINERALS, THERAPEUTIC TABLET PO SCH (09:05)
[2022-03-26] MEDS: OMEGA-3/DHA/EPA/FISH OIL 1,000 MG CAPSULE PO SCH (09:05)
[2022-03-26] MEDS: NICOTINE 7 MG/24 HOUR PATCH TD SCH (09:06)
[2022-03-26] MEDS: DICLOFENAC SODIUM 1% 100 GM GEL [4GM] TP SCH ×2 (09:07→16:37)
[2022-03-26 16:38] VITALS: BP 115/79
[2022-03-26] MEDS: LURASIDONE HCL 40 MG TABLET PO SCH (17:47)
[2022-03-26] MEDS: MELATONIN 5 MG TABLET PO SCH (20:29)
[2022-03-26] MEDS: VALPROIC ACID 250 MG/5 ML SOLUTION UDCUP PO SCH (20:30)
[2022-03-27] MEDS: MULTIVITAMINS WITH MINERALS, THERAPEUTIC TABLET PO SCH (08:05)
[2022-03-27] MEDS: OMEGA-3/DHA/EPA/FISH OIL 1,000 MG CAPSULE PO SCH (08:05)
[2022-03-27] MEDS: DULoxetine HCL 30 MG CAPSULE PO SCH (08:05)
[2022-03-27] MEDS: AmLODIPine BESYLATE 5 MG TABLET PO SCH ×2 (08:05→16:38)
[2022-03-27] MEDS: METOPROLOL TARTRATE 25 MG TABLET PO SCH ×2 (08:06→16:38)
[2022-03-27] MEDS: PANTOPRAZOLE SODIUM 40 MG DR TABLET PO SCH (08:06)
[2022-03-27] MEDS: NICOTINE 7 MG/24 HOUR PATCH TD SCH (08:14)
[2022-03-27] MEDS: DICLOFENAC SODIUM 1% 100 GM GEL [4GM] TP SCH ×2 (09:00→16:39)
[2022-03-27 09:27] VITALS: BP 131/78
[2022-03-27 16:15] VITALS: BP 106/65
[2022-03-27] MEDS: LURASIDONE HCL 20 MG TABLET PO SCH (17:09)
[2022-03-27] MEDS: MELATONIN 5 MG TABLET PO SCH (20:41)
[2022-03-27] MEDS: VALPROIC ACID 250 MG/5 ML SOLUTION UDCUP PO SCH (20:41)
[2022-03-28 08:07] VITALS: BP 98/62
[2022-03-28] MEDS: DULoxetine HCL 30 MG CAPSULE PO SCH (09:00)
[2022-03-28] MEDS: MULTIVITAMINS WITH MINERALS, THERAPEUTIC TABLET PO SCH (09:00)
[2022-03-28] MEDS: OMEGA-3/DHA/EPA/FISH OIL 1,000 MG CAPSULE PO SCH (09:00)
[2022-03-28] MEDS: DICLOFENAC SODIUM 1% 100 GM GEL [4GM] TP SCH ×2 (09:00→17:00)
[2022-03-28] MEDS: PANTOPRAZOLE SODIUM 40 MG DR TABLET PO SCH (09:00)
[2022-03-28] MEDS: AmLODIPine BESYLATE 5 MG TABLET PO SCH ×2 (09:00→17:00)
[2022-03-28] MEDS: METOPROLOL TARTRATE 25 MG TABLET PO SCH ×2 (09:01→17:00)
[2022-03-28] MEDS: NICOTINE 7 MG/24 HOUR PATCH TD SCH (09:02)
[2022-03-28 16:01] VITALS: BP 104/76
[2022-03-28] MEDS: LURASIDONE HCL 20 MG TABLET PO SCH (17:30)
[2022-03-28] MEDS: VALPROIC ACID 250 MG/5 ML SOLUTION UDCUP PO SCH (21:01)
[2022-03-28] MEDS: MELATONIN 5 MG TABLET PO SCH (21:01)
[2022-03-29] MEDS: MULTIVITAMINS WITH MINERALS, THERAPEUTIC TABLET PO SCH (09:05)
[2022-03-29] MEDS: OMEGA-3/DHA/EPA/FISH OIL 1,000 MG CAPSULE PO SCH (09:05)
[2022-03-29] MEDS: METOPROLOL TARTRATE 25 MG TABLET PO SCH ×2 (09:06→16:05)
[2022-03-29] MEDS: DULoxetine HCL 30 MG CAPSULE PO SCH (09:06)
[2022-03-29] MEDS: AmLODIPine BESYLATE 5 MG TABLET PO SCH ×2 (09:06→16:05)
[2022-03-29] MEDS: PANTOPRAZOLE SODIUM 40 MG DR TABLET PO SCH (09:06)
[2022-03-29] MEDS: NICOTINE 7 MG/24 HOUR PATCH TD SCH (09:06)
[2022-03-29] MEDS: DICLOFENAC SODIUM 1% 100 GM GEL [4GM] TP SCH ×2 (09:06→16:05)
[2022-03-29 09:26] VITALS: BP 138/70
[2022-03-29] MEDS: LURASIDONE HCL 20 MG TABLET PO SCH (16:05)
[2022-03-29 16:48] VITALS: BP 112/70
[2022-03-29] MEDS: VALPROIC ACID 250 MG/5 ML SOLUTION UDCUP PO SCH (20:06)
[2022-03-29] MEDS: MELATONIN 5 MG TABLET PO SCH (20:06)
[2022-03-30] MEDS: DULoxetine HCL 30 MG CAPSULE PO SCH (08:51)
[2022-03-30] MEDS: MULTIVITAMINS WITH MINERALS, THERAPEUTIC TABLET PO SCH (08:51)
[2022-03-30] MEDS: OMEGA-3/DHA/EPA/FISH OIL 1,000 MG CAPSULE PO SCH (08:51)
[2022-03-30] MEDS: AmLODIPine BESYLATE 5 MG TABLET PO SCH ×2 (08:52→17:13)
[2022-03-30] MEDS: METOPROLOL TARTRATE 25 MG TABLET PO SCH ×2 (08:52→17:13)
[2022-03-30] MEDS: PANTOPRAZOLE SODIUM 40 MG DR TABLET PO SCH (08:53)
[2022-03-30] MEDS: NICOTINE 7 MG/24 HOUR PATCH TD SCH (08:54)
[2022-03-30] MEDS: DICLOFENAC SODIUM 1% 100 GM GEL [4GM] TP SCH ×2 (08:54→17:14)
[2022-03-30 17:10] VITALS: BP 113/62
[2022-03-30] MEDS: LURASIDONE HCL 20 MG TABLET PO SCH (17:13)
[2022-03-30] MEDS: LORazepam 0.5 MG TABLET PO PRN (18:54)
[2022-03-30] MEDS: LURASIDONE HCL 20 MG TABLET PO PRN (18:54)
[2022-03-30] MEDS: VALPROIC ACID 250 MG/5 ML SOLUTION UDCUP PO SCH (20:49)
[2022-03-30] MEDS: MELATONIN 5 MG TABLET PO SCH (20:49)
[2022-03-31] MEDS: NICOTINE 7 MG/24 HOUR PATCH TD SCH (09:04)
[2022-03-31] MEDS: DULoxetine HCL 30 MG CAPSULE PO SCH (09:04)
[2022-03-31] MEDS: AmLODIPine BESYLATE 5 MG TABLET PO SCH ×2 (09:04→16:37)
[2022-03-31] MEDS: OMEGA-3/DHA/EPA/FISH OIL 1,000 MG CAPSULE PO SCH (09:05)
[2022-03-31] MEDS: METOPROLOL TARTRATE 25 MG TABLET PO SCH ×2 (09:05→16:38)
[2022-03-31] MEDS: MULTIVITAMINS WITH MINERALS, THERAPEUTIC TABLET PO SCH (09:05)
[2022-03-31] MEDS: PANTOPRAZOLE SODIUM 40 MG DR TABLET PO SCH (09:05)
[2022-03-31] MEDS: DICLOFENAC SODIUM 1% 100 GM GEL [4GM] TP SCH ×2 (09:06→17:32)
[2022-03-31 09:08] VITALS: BP 131/84
[2022-03-31 16:15] VITALS: BP 117/60
[2022-03-31] MEDS: LURASIDONE HCL 20 MG TABLET PO SCH (16:37)
[2022-03-31] MEDS: MELATONIN 5 MG TABLET PO SCH (20:45)
[2022-03-31] MEDS: VALPROIC ACID 250 MG/5 ML SOLUTION UDCUP PO SCH (20:46)
[2022-04-01 08:03] VITALS: BP 122/74
[2022-04-01] MEDS: AmLODIPine BESYLATE 5 MG TABLET PO SCH ×2 (10:32→16:05)
[2022-04-01] MEDS: OMEGA-3/DHA/EPA/FISH OIL 1,000 MG CAPSULE PO SCH (10:32)
[2022-04-01] MEDS: MULTIVITAMINS WITH MINERALS, THERAPEUTIC TABLET PO SCH (10:32)
[2022-04-01] MEDS: DULoxetine HCL 30 MG CAPSULE PO SCH (10:32)
[2022-04-01] MEDS: NICOTINE 7 MG/24 HOUR PATCH TD SCH (10:32)
[2022-04-01] MEDS: METOPROLOL TARTRATE 25 MG TABLET PO SCH ×2 (10:35→16:05)
[2022-04-01] MEDS: PANTOPRAZOLE SODIUM 40 MG DR TABLET PO SCH (10:36)
[2022-04-01] MEDS: DICLOFENAC SODIUM 1% 100 GM GEL [4GM] TP SCH ×2 (10:36→16:06)
[2022-04-01 15:52] LABS: COVID AG,FIA SOURCE NASOPHARYNGEAL
[2022-04-01] MEDS: LURASIDONE HCL 40 MG TABLET PO SCH (16:05)
[2022-04-01 16:12] VITALS: BP 106/69
[2022-04-01] MEDS: MELATONIN 5 MG TABLET PO SCH (20:05)
[2022-04-01] MEDS: VALPROIC ACID 250 MG/5 ML SOLUTION UDCUP PO SCH (20:05)
[2022-04-02] MEDS: LURASIDONE HCL 20 MG TABLET PO PRN (00:54)
[2022-04-02 08:05] VITALS: BP 119/75
[2022-04-02] MEDS: DICLOFENAC SODIUM 1% 100 GM GEL [4GM] TP SCH ×2 (09:00→17:20)
[2022-04-02] MEDS: OMEGA-3/DHA/EPA/FISH OIL 1,000 MG CAPSULE PO SCH (09:39)
[2022-04-02] MEDS: METOPROLOL TARTRATE 25 MG TABLET PO SCH ×2 (09:39→17:20)
[2022-04-02] MEDS: PANTOPRAZOLE SODIUM 40 MG DR TABLET PO SCH (09:39)
[2022-04-02] MEDS: DULoxetine HCL 30 MG CAPSULE PO SCH (09:39)
[2022-04-02] MEDS: MULTIVITAMINS WITH MINERALS, THERAPEUTIC TABLET PO SCH (09:39)
[2022-04-02] MEDS: ACETAMINOPHEN 325 MG TABLET PO PRN (09:39)
[2022-04-02] MEDS: AmLODIPine BESYLATE 5 MG TABLET PO SCH ×2 (09:39→17:19)
[2022-04-02] MEDS: NICOTINE 7 MG/24 HOUR PATCH TD SCH (09:44)
[2022-04-02] MEDS: PALIPERIDONE PALMITATE 117 MG/0.75 ML SYRINGE IM SCH (14:16)
[2022-04-02 16:07] VITALS: BP 137/79
[2022-04-02] MEDS: LURASIDONE HCL 40 MG TABLET PO SCH (17:19)
[2022-04-02] MEDS: VALPROIC ACID 250 MG/5 ML SOLUTION UDCUP PO SCH (20:31)
[2022-04-02] MEDS: MELATONIN 5 MG TABLET PO SCH (20:31)
[2022-04-03 08:26] VITALS: BP 142/86
[2022-04-03] MEDS: PANTOPRAZOLE SODIUM 40 MG DR TABLET PO SCH (08:48)
[2022-04-03] MEDS: MULTIVITAMINS WITH MINERALS, THERAPEUTIC TABLET PO SCH (08:48)
[2022-04-03] MEDS: DULoxetine HCL 30 MG CAPSULE PO SCH (08:48)
[2022-04-03] MEDS: OMEGA-3/DHA/EPA/FISH OIL 1,000 MG CAPSULE PO SCH (08:49)
[2022-04-03] MEDS: NICOTINE 7 MG/24 HOUR PATCH TD SCH (08:49)
[2022-04-03] MEDS: AmLODIPine BESYLATE 5 MG TABLET PO SCH ×2 (08:49→16:45)
[2022-04-03] MEDS: METOPROLOL TARTRATE 25 MG TABLET PO SCH ×2 (08:49→16:45)
[2022-04-03] MEDS: DICLOFENAC SODIUM 1% 100 GM GEL [4GM] TP SCH ×2 (08:50→16:46)
[2022-04-03] MEDS: LORazepam 0.5 MG TABLET PO PRN (11:56)
[2022-04-03 16:52] VITALS: BP 142/86
[2022-04-03] MEDS: LURASIDONE HCL 40 MG TABLET PO SCH (17:16)
[2022-04-03] MEDS: MELATONIN 5 MG TABLET PO SCH (20:21)
[2022-04-03] MEDS: VALPROIC ACID 250 MG/5 ML SOLUTION UDCUP PO SCH (20:21)
[2022-04-04] MEDS: METOPROLOL TARTRATE 25 MG TABLET PO SCH ×2 (09:00→16:12)
[2022-04-04] MEDS: DICLOFENAC SODIUM 1% 100 GM GEL [4GM] TP SCH ×2 (09:00→16:12)
[2022-04-04] MEDS: MULTIVITAMINS WITH MINERALS, THERAPEUTIC TABLET PO SCH (09:00)
[2022-04-04] MEDS: DULoxetine HCL 30 MG CAPSULE PO SCH (09:00)
[2022-04-04] MEDS: PANTOPRAZOLE SODIUM 40 MG DR TABLET PO SCH (09:00)
[2022-04-04] MEDS: AmLODIPine BESYLATE 5 MG TABLET PO SCH ×2 (09:00→16:12)
[2022-04-04] MEDS: OMEGA-3/DHA/EPA/FISH OIL 1,000 MG CAPSULE PO SCH (09:00)
[2022-04-04] MEDS: NICOTINE 7 MG/24 HOUR PATCH TD SCH (09:00)
[2022-04-04 09:47] VITALS: BP 130/74
[2022-04-04 16:04] VITALS: BP 105/76
[2022-04-04] MEDS: LURASIDONE HCL 40 MG TABLET PO SCH (17:41)
[2022-04-04] MEDS: VALPROIC ACID 250 MG/5 ML SOLUTION UDCUP PO SCH (20:15)
[2022-04-04] MEDS: MELATONIN 5 MG TABLET PO SCH (20:15)
[2022-04-05 08:02] VITALS: BP 148/94
[2022-04-05] MEDS: METOPROLOL TARTRATE 25 MG TABLET PO SCH ×2 (08:44→16:32)
[2022-04-05] MEDS: DULoxetine HCL 30 MG CAPSULE PO SCH (08:44)
[2022-04-05] MEDS: NICOTINE 7 MG/24 HOUR PATCH TD SCH (08:44)
[2022-04-05] MEDS: OMEGA-3/DHA/EPA/FISH OIL 1,000 MG CAPSULE PO SCH (08:44)
[2022-04-05] MEDS: AmLODIPine BESYLATE 5 MG TABLET PO SCH ×2 (08:44→16:32)
[2022-04-05] MEDS: PANTOPRAZOLE SODIUM 40 MG DR TABLET PO SCH (08:44)
[2022-04-05] MEDS: MULTIVITAMINS WITH MINERALS, THERAPEUTIC TABLET PO SCH (08:44)
[2022-04-05] MEDS: DICLOFENAC SODIUM 1% 100 GM GEL [4GM] TP SCH ×2 (08:46→16:32)
[2022-04-05 16:06] VITALS: BP 116/75
[2022-04-05] MEDS: LURASIDONE HCL 40 MG TABLET PO SCH (16:32)
[2022-04-05] MEDS: VALPROIC ACID 250 MG/5 ML SOLUTION UDCUP PO SCH (20:40)
[2022-04-05] MEDS: MELATONIN 5 MG TABLET PO SCH (20:40)
[2022-04-06 08:03] VITALS: BP 129/86
[2022-04-06] MEDS: DULoxetine HCL 30 MG CAPSULE PO SCH (08:27)
[2022-04-06] MEDS: MULTIVITAMINS WITH MINERALS, THERAPEUTIC TABLET PO SCH (08:27)
[2022-04-06] MEDS: OMEGA-3/DHA/EPA/FISH OIL 1,000 MG CAPSULE PO SCH (08:27)
[2022-04-06] MEDS: PANTOPRAZOLE SODIUM 40 MG DR TABLET PO SCH (08:28)
[2022-04-06] MEDS: DICLOFENAC SODIUM 1% 100 GM GEL [4GM] TP SCH ×2 (08:28→16:34)
[2022-04-06] MEDS: METOPROLOL TARTRATE 25 MG TABLET PO SCH ×2 (08:28→16:34)
[2022-04-06] MEDS: NICOTINE 7 MG/24 HOUR PATCH TD SCH (08:28)
[2022-04-06] MEDS: AmLODIPine BESYLATE 5 MG TABLET PO SCH ×2 (08:28→16:34)
[2022-04-06 16:00] VITALS: BP 123/70
[2022-04-06 16:24] VITALS: BP 123/70
[2022-04-06] MEDS: LURASIDONE HCL 40 MG TABLET PO SCH (16:35)
[2022-04-06] MEDS: VALPROIC ACID 250 MG/5 ML SOLUTION UDCUP PO SCH (20:25)
[2022-04-06] MEDS: MELATONIN 5 MG TABLET PO SCH (20:25)
[2022-04-07 08:00] VITALS: BP 145/84
[2022-04-07] MEDS: DULoxetine HCL 30 MG CAPSULE PO SCH (08:57)
[2022-04-07] MEDS: PANTOPRAZOLE SODIUM 40 MG DR TABLET PO SCH (08:57)
[2022-04-07] MEDS: AmLODIPine BESYLATE 5 MG TABLET PO SCH ×2 (08:58→16:31)
[2022-04-07] MEDS: NICOTINE 7 MG/24 HOUR PATCH TD SCH (08:59)
[2022-04-07] MEDS: OMEGA-3/DHA/EPA/FISH OIL 1,000 MG CAPSULE PO SCH (08:59)
[2022-04-07] MEDS: MULTIVITAMINS WITH MINERALS, THERAPEUTIC TABLET PO SCH (08:59)
[2022-04-07] MEDS: METOPROLOL TARTRATE 25 MG TABLET PO SCH ×2 (08:59→16:30)
[2022-04-07] MEDS: DICLOFENAC SODIUM 1% 100 GM GEL [4GM] TP SCH ×2 (09:00→16:31)
[2022-04-07 16:00] VITALS: BP 114/74
[2022-04-07] MEDS: LURASIDONE HCL 40 MG TABLET PO SCH (16:30)
[2022-04-07] MEDS: MELATONIN 5 MG TABLET PO SCH (20:13)
[2022-04-07] MEDS: VALPROIC ACID 250 MG/5 ML SOLUTION UDCUP PO SCH (20:14)
[2022-04-08 07:47] LABS: COVID AG,FIA SOURCE NASAL SWAB
[2022-04-08 08:25] VITALS: BP 127/82
[2022-04-08] MEDS: AmLODIPine BESYLATE 5 MG TABLET PO SCH ×2 (08:42→16:48)
[2022-04-08] MEDS: DULoxetine HCL 30 MG CAPSULE PO SCH (08:42)
[2022-04-08] MEDS: MULTIVITAMINS WITH MINERALS, THERAPEUTIC TABLET PO SCH (08:42)
[2022-04-08] MEDS: METOPROLOL TARTRATE 25 MG TABLET PO SCH ×2 (08:42→16:48)
[2022-04-08] MEDS: PANTOPRAZOLE SODIUM 40 MG DR TABLET PO SCH (08:42)
[2022-04-08] MEDS: OMEGA-3/DHA/EPA/FISH OIL 1,000 MG CAPSULE PO SCH (08:42)
[2022-04-08] MEDS: DICLOFENAC SODIUM 1% 100 GM GEL [4GM] TP SCH ×2 (09:00→16:41)
[2022-04-08] MEDS: NICOTINE 7 MG/24 HOUR PATCH TD SCH (09:00)
[2022-04-08] MEDS: LURASIDONE HCL 40 MG TABLET PO SCH (16:41)
[2022-04-08 16:56] VITALS: BP 117/70
[2022-04-08] MEDS: VALPROIC ACID 250 MG/5 ML SOLUTION UDCUP PO SCH (20:53)
[2022-04-08] MEDS: MELATONIN 5 MG TABLET PO SCH (20:53)
[2022-04-09 08:27] VITALS: BP 140/79
[2022-04-09] MEDS: OMEGA-3/DHA/EPA/FISH OIL 1,000 MG CAPSULE PO SCH (08:30)
[2022-04-09] MEDS: PANTOPRAZOLE SODIUM 40 MG DR TABLET PO SCH (08:30)
[2022-04-09] MEDS: MULTIVITAMINS WITH MINERALS, THERAPEUTIC TABLET PO SCH (08:30)
[2022-04-09] MEDS: AmLODIPine BESYLATE 5 MG TABLET PO SCH ×2 (08:31→16:36)
[2022-04-09] MEDS: NICOTINE 7 MG/24 HOUR PATCH TD SCH (08:31)
[2022-04-09] MEDS: DULoxetine HCL 30 MG CAPSULE PO SCH (08:31)
[2022-04-09] MEDS: METOPROLOL TARTRATE 25 MG TABLET PO SCH ×2 (08:31→16:36)
[2022-04-09] MEDS: DICLOFENAC SODIUM 1% 100 GM GEL [4GM] TP SCH ×3 (08:32→16:42)
[2022-04-09 16:35] VITALS: BP 113/69
[2022-04-09] MEDS: LURASIDONE HCL 40 MG TABLET PO SCH (17:30)
[2022-04-09] MEDS: MELATONIN 5 MG TABLET PO SCH (20:42)
[2022-04-09] MEDS: VALPROIC ACID 250 MG/5 ML SOLUTION UDCUP PO SCH (20:42)
[2022-04-10] MEDS: PANTOPRAZOLE SODIUM 40 MG DR TABLET PO SCH (08:18)
[2022-04-10 08:19] VITALS: BP 137/90
[2022-04-10] MEDS: OMEGA-3/DHA/EPA/FISH OIL 1,000 MG CAPSULE PO SCH (08:19)
[2022-04-10] MEDS: DULoxetine HCL 30 MG CAPSULE PO SCH (08:19)
[2022-04-10] MEDS: AmLODIPine BESYLATE 5 MG TABLET PO SCH ×2 (08:19→16:58)
[2022-04-10] MEDS: MULTIVITAMINS WITH MINERALS, THERAPEUTIC TABLET PO SCH (08:19)
[2022-04-10] MEDS: ACETAMINOPHEN 325 MG TABLET PO PRN (08:19)
[2022-04-10] MEDS: METOPROLOL TARTRATE 25 MG TABLET PO SCH ×2 (08:19→16:58)
[2022-04-10] MEDS: NICOTINE 7 MG/24 HOUR PATCH TD SCH (08:20)
[2022-04-10] MEDS: DICLOFENAC SODIUM 1% 100 GM GEL [4GM] TP SCH ×2 (08:20→16:59)
[2022-04-10 08:24] VITALS: BP 137/90
[2022-04-10 16:06] VITALS: BP 110/69
[2022-04-10] MEDS: LURASIDONE HCL 40 MG TABLET PO SCH (17:55)
[2022-04-10] MEDS: MELATONIN 5 MG TABLET PO SCH (20:38)
[2022-04-10] MEDS: VALPROIC ACID 250 MG/5 ML SOLUTION UDCUP PO SCH (20:39)
[2022-04-11 08:45] VITALS: BP 128/71
[2022-04-11] MEDS: DICLOFENAC SODIUM 1% 100 GM GEL [4GM] TP SCH ×2 (09:00→16:54)
[2022-04-11] MEDS: METOPROLOL TARTRATE 25 MG TABLET PO SCH ×2 (09:14→16:53)
[2022-04-11] MEDS: PANTOPRAZOLE SODIUM 40 MG DR TABLET PO SCH (09:14)
[2022-04-11] MEDS: AmLODIPine BESYLATE 5 MG TABLET PO SCH ×2 (09:14→16:54)
[2022-04-11] MEDS: OMEGA-3/DHA/EPA/FISH OIL 1,000 MG CAPSULE PO SCH (09:14)
[2022-04-11] MEDS: DULoxetine HCL 30 MG CAPSULE PO SCH (09:14)
[2022-04-11] MEDS: MULTIVITAMINS WITH MINERALS, THERAPEUTIC TABLET PO SCH (09:15)
[2022-04-11] MEDS: NICOTINE 7 MG/24 HOUR PATCH TD SCH (09:25)
[2022-04-11] MEDS: ACETAMINOPHEN 325 MG TABLET PO PRN (14:55)
[2022-04-11 16:00] VITALS: BP 126/72
[2022-04-11] MEDS: LURASIDONE HCL 40 MG TABLET PO SCH (16:53)
[2022-04-11] MEDS: VALPROIC ACID 250 MG/5 ML SOLUTION UDCUP PO SCH (20:49)
[2022-04-11] MEDS: MELATONIN 5 MG TABLET PO SCH (20:49)
[2022-04-12 08:05] VITALS: BP 121/67
[2022-04-12] MEDS: OMEGA-3/DHA/EPA/FISH OIL 1,000 MG CAPSULE PO SCH (09:38)
[2022-04-12] MEDS: METOPROLOL TARTRATE 25 MG TABLET PO SCH ×2 (09:38→16:26)
[2022-04-12] MEDS: DULoxetine HCL 30 MG CAPSULE PO SCH (09:38)
[2022-04-12] MEDS: AmLODIPine BESYLATE 5 MG TABLET PO SCH ×2 (09:38→16:26)
[2022-04-12] MEDS: MULTIVITAMINS WITH MINERALS, THERAPEUTIC TABLET PO SCH (09:38)
[2022-04-12] MEDS: PANTOPRAZOLE SODIUM 40 MG DR TABLET PO SCH (09:38)
[2022-04-12] MEDS: NICOTINE 7 MG/24 HOUR PATCH TD SCH (09:39)
[2022-04-12] MEDS: ACETAMINOPHEN 325 MG TABLET PO PRN (09:41)
[2022-04-12] MEDS: DICLOFENAC SODIUM 1% 100 GM GEL [4GM] TP SCH ×2 (09:47→16:26)
[2022-04-12 10:41] VITALS: BP 124/72
[2022-04-12] MEDS: LURASIDONE HCL 40 MG TABLET PO SCH (16:25)
[2022-04-12 16:40] VITALS: BP 126/79
[2022-04-12] MEDS: VALPROIC ACID 250 MG/5 ML SOLUTION UDCUP PO SCH (20:18)
[2022-04-12] MEDS: MELATONIN 5 MG TABLET PO SCH (20:18)
[2022-04-13 08:07] VITALS: BP 141/86
[2022-04-13] MEDS: DULoxetine HCL 30 MG CAPSULE PO SCH (08:23)
[2022-04-13] MEDS: PANTOPRAZOLE SODIUM 40 MG DR TABLET PO SCH (08:23)
[2022-04-13] MEDS: OMEGA-3/DHA/EPA/FISH OIL 1,000 MG CAPSULE PO SCH (08:23)
[2022-04-13] MEDS: MULTIVITAMINS WITH MINERALS, THERAPEUTIC TABLET PO SCH (08:23)
[2022-04-13] MEDS: METOPROLOL TARTRATE 25 MG TABLET PO SCH ×2 (08:23→17:12)
[2022-04-13] MEDS: NICOTINE 7 MG/24 HOUR PATCH TD SCH (08:24)
[2022-04-13] MEDS: DICLOFENAC SODIUM 1% 100 GM GEL [4GM] TP SCH ×2 (08:24→17:13)
[2022-04-13] MEDS: AmLODIPine BESYLATE 5 MG TABLET PO SCH ×2 (08:24→17:12)
[2022-04-13] MEDS: LURASIDONE HCL 40 MG TABLET PO SCH (17:12)
[2022-04-13] MEDS: MELATONIN 5 MG TABLET PO SCH (21:19)
[2022-04-13] MEDS: VALPROIC ACID 250 MG/5 ML SOLUTION UDCUP PO SCH (21:20)
[2022-04-14 08:00] VITALS: BP 104/72
[2022-04-14] MEDS: OMEGA-3/DHA/EPA/FISH OIL 1,000 MG CAPSULE PO SCH (10:02)
[2022-04-14] MEDS: PANTOPRAZOLE SODIUM 40 MG DR TABLET PO SCH (10:03)
[2022-04-14] MEDS: NICOTINE 7 MG/24 HOUR PATCH TD SCH (10:03)
[2022-04-14] MEDS: MULTIVITAMINS WITH MINERALS, THERAPEUTIC TABLET PO SCH (10:03)
[2022-04-14] MEDS: AmLODIPine BESYLATE 5 MG TABLET PO SCH ×2 (10:03→16:21)
[2022-04-14] MEDS: METOPROLOL TARTRATE 25 MG TABLET PO SCH ×2 (10:03→16:21)
[2022-04-14] MEDS: DULoxetine HCL 30 MG CAPSULE PO SCH (10:03)
[2022-04-14] MEDS: DICLOFENAC SODIUM 1% 100 GM GEL [4GM] TP SCH ×2 (10:04→16:22)
[2022-04-14 16:14] VITALS: BP 110/75
[2022-04-14] MEDS: LURASIDONE HCL 40 MG TABLET PO SCH (17:30)
[2022-04-14] MEDS: VALPROIC ACID 250 MG/5 ML SOLUTION UDCUP PO SCH (21:10)
[2022-04-14] MEDS: MELATONIN 5 MG TABLET PO SCH (21:10)
[2022-04-15 08:10] VITALS: BP 147/94
[2022-04-15] MEDS: PANTOPRAZOLE SODIUM 40 MG DR TABLET PO SCH (08:14)
[2022-04-15] MEDS: DULoxetine HCL 30 MG CAPSULE PO SCH (08:14)
[2022-04-15] MEDS: OMEGA-3/DHA/EPA/FISH OIL 1,000 MG CAPSULE PO SCH (08:14)
[2022-04-15] MEDS: ACETAMINOPHEN 325 MG TABLET PO PRN (08:14)
[2022-04-15] MEDS: MULTIVITAMINS WITH MINERALS, THERAPEUTIC TABLET PO SCH (08:15)
[2022-04-15] MEDS: AmLODIPine BESYLATE 5 MG TABLET PO SCH ×2 (08:15→16:12)
[2022-04-15] MEDS: NICOTINE 7 MG/24 HOUR PATCH TD SCH (08:15)
[2022-04-15] MEDS: METOPROLOL TARTRATE 25 MG TABLET PO SCH ×2 (08:15→16:12)
[2022-04-15] MEDS: DICLOFENAC SODIUM 1% 100 GM GEL [4GM] TP SCH ×2 (09:00→16:12)
[2022-04-15 09:16] VITALS: BP 147/94
[2022-04-15 16:00] VITALS: BP 130/81
[2022-04-15] MEDS: LURASIDONE HCL 40 MG TABLET PO SCH (16:11)
[2022-04-15 18:06] LABS: COVID AG,FIA SOURCE NASAL SWAB
[2022-04-15] MEDS: VALPROIC ACID 250 MG/5 ML SOLUTION UDCUP PO SCH (20:11)
[2022-04-15] MEDS: MELATONIN 5 MG TABLET PO SCH (20:11)
[2022-04-16 01:00] VITALS: BP 137/79
[2022-04-16 08:00] VITALS: BP 152/96
[2022-04-16] MEDS: OMEGA-3/DHA/EPA/FISH OIL 1,000 MG CAPSULE PO SCH (08:40)
[2022-04-16] MEDS: PANTOPRAZOLE SODIUM 40 MG DR TABLET PO SCH (08:40)
[2022-04-16] MEDS: DULoxetine HCL 30 MG CAPSULE PO SCH (08:40)
[2022-04-16] MEDS: MULTIVITAMINS WITH MINERALS, THERAPEUTIC TABLET PO SCH (08:40)
[2022-04-16] MEDS: METOPROLOL TARTRATE 25 MG TABLET PO SCH ×2 (08:40→16:35)
[2022-04-16] MEDS: AmLODIPine BESYLATE 5 MG TABLET PO SCH ×2 (08:40→16:35)
[2022-04-16] MEDS: NICOTINE 7 MG/24 HOUR PATCH TD SCH (08:47)
[2022-04-16] MEDS: DICLOFENAC SODIUM 1% 100 GM GEL [4GM] TP SCH ×2 (09:00→16:40)
[2022-04-16] MEDS: LURASIDONE HCL 40 MG TABLET PO SCH (16:35)
[2022-04-16 16:47] VITALS: BP 139/83
[2022-04-16] MEDS: MELATONIN 5 MG TABLET PO SCH (20:56)
[2022-04-16] MEDS: VALPROIC ACID 250 MG/5 ML SOLUTION UDCUP PO SCH (20:57)
[2022-04-17 01:15] VITALS: BP 130/79
[2022-04-17] MEDS: NICOTINE 7 MG/24 HOUR PATCH TD SCH (08:58)
[2022-04-17] MEDS: PANTOPRAZOLE SODIUM 40 MG DR TABLET PO SCH (08:59)
[2022-04-17] MEDS: OMEGA-3/DHA/EPA/FISH OIL 1,000 MG CAPSULE PO SCH (08:59)
[2022-04-17] MEDS: AmLODIPine BESYLATE 5 MG TABLET PO SCH ×2 (08:59→16:14)
[2022-04-17] MEDS: DULoxetine HCL 30 MG CAPSULE PO SCH (08:59)
[2022-04-17] MEDS: METOPROLOL TARTRATE 25 MG TABLET PO SCH ×2 (08:59→17:00)
[2022-04-17] MEDS: MULTIVITAMINS WITH MINERALS, THERAPEUTIC TABLET PO SCH (08:59)
[2022-04-17] MEDS: DICLOFENAC SODIUM 1% 100 GM GEL [4GM] TP SCH ×2 (09:00→17:13)
[2022-04-17 16:38] VITALS: BP 100/72
[2022-04-17] MEDS: LURASIDONE HCL 40 MG TABLET PO SCH (17:30)
[2022-04-17] MEDS: MELATONIN 5 MG TABLET PO SCH (20:16)
[2022-04-17] MEDS: VALPROIC ACID 250 MG/5 ML SOLUTION UDCUP PO SCH (20:16)
[2022-04-18 08:00] VITALS: BP 123/78
[2022-04-18] MEDS: PANTOPRAZOLE SODIUM 40 MG DR TABLET PO SCH (08:14)
[2022-04-18] MEDS: DULoxetine HCL 30 MG CAPSULE PO SCH (08:14)
[2022-04-18] MEDS: AmLODIPine BESYLATE 5 MG TABLET PO SCH ×2 (08:14→16:42)
[2022-04-18] MEDS: MULTIVITAMINS WITH MINERALS, THERAPEUTIC TABLET PO SCH (08:14)
[2022-04-18] MEDS: OMEGA-3/DHA/EPA/FISH OIL 1,000 MG CAPSULE PO SCH (08:14)
[2022-04-18] MEDS: METOPROLOL TARTRATE 25 MG TABLET PO SCH ×2 (08:15→16:42)
[2022-04-18] MEDS: NICOTINE 7 MG/24 HOUR PATCH TD SCH (08:30)
[2022-04-18] MEDS: DICLOFENAC SODIUM 1% 100 GM GEL [4GM] TP SCH ×2 (09:00→16:43)
[2022-04-18] MEDS: LURASIDONE HCL 40 MG TABLET PO SCH (16:42)
[2022-04-18 17:21] VITALS: BP 115/80
[2022-04-18] MEDS: MELATONIN 5 MG TABLET PO SCH (20:23)
[2022-04-18] MEDS: VALPROIC ACID 250 MG/5 ML SOLUTION UDCUP PO SCH (20:23)
[2022-04-19] MEDS: PANTOPRAZOLE SODIUM 40 MG DR TABLET PO SCH (09:58)
[2022-04-19] MEDS: DULoxetine HCL 30 MG CAPSULE PO SCH (09:58)
[2022-04-19] MEDS: MULTIVITAMINS WITH MINERALS, THERAPEUTIC TABLET PO SCH (09:58)
[2022-04-19] MEDS: OMEGA-3/DHA/EPA/FISH OIL 1,000 MG CAPSULE PO SCH (09:58)
[2022-04-19] MEDS: AmLODIPine BESYLATE 5 MG TABLET PO SCH ×2 (09:59→16:45)
[2022-04-19] MEDS: METOPROLOL TARTRATE 25 MG TABLET PO SCH ×2 (09:59→16:46)
[2022-04-19] MEDS: NICOTINE 7 MG/24 HOUR PATCH TD SCH (10:00)
[2022-04-19] MEDS: DICLOFENAC SODIUM 1% 100 GM GEL [4GM] TP SCH ×2 (10:01→16:46)
[2022-04-19] MEDS: LURASIDONE HCL 40 MG TABLET PO SCH (16:45)
[2022-04-19 16:48] VITALS: BP 121/80
[2022-04-19] MEDS: MELATONIN 5 MG TABLET PO SCH (20:39)
[2022-04-19] MEDS: VALPROIC ACID 250 MG/5 ML SOLUTION UDCUP PO SCH (20:39)
[2022-04-20 08:57] VITALS: BP 161/77
[2022-04-20] MEDS: OMEGA-3/DHA/EPA/FISH OIL 1,000 MG CAPSULE PO SCH (09:18)
[2022-04-20] MEDS: DULoxetine HCL 30 MG CAPSULE PO SCH (09:18)
[2022-04-20] MEDS: MULTIVITAMINS WITH MINERALS, THERAPEUTIC TABLET PO SCH (09:18)
[2022-04-20] MEDS: AmLODIPine BESYLATE 5 MG TABLET PO SCH ×2 (09:18→16:52)
[2022-04-20] MEDS: PANTOPRAZOLE SODIUM 40 MG DR TABLET PO SCH (09:18)
[2022-04-20] MEDS: NICOTINE 7 MG/24 HOUR PATCH TD SCH (09:19)
[2022-04-20] MEDS: METOPROLOL TARTRATE 25 MG TABLET PO SCH ×2 (09:19→16:52)
[2022-04-20] MEDS: DICLOFENAC SODIUM 1% 100 GM GEL [4GM] TP SCH ×2 (09:21→16:57)
[2022-04-20] MEDS: LURASIDONE HCL 40 MG TABLET PO SCH (16:52)
[2022-04-20 16:54] VITALS: BP 107/65
[2022-04-20] MEDS: VALPROIC ACID 250 MG/5 ML SOLUTION UDCUP PO SCH (21:29)
[2022-04-20] MEDS: MELATONIN 5 MG TABLET PO SCH (21:29)
[2022-04-21 08:00] VITALS: BP 139/74
[2022-04-21] MEDS: MULTIVITAMINS WITH MINERALS, THERAPEUTIC TABLET PO SCH (08:14)
[2022-04-21] MEDS: DULoxetine HCL 30 MG CAPSULE PO SCH (08:14)
[2022-04-21] MEDS: PANTOPRAZOLE SODIUM 40 MG DR TABLET PO SCH (08:14)
[2022-04-21] MEDS: METOPROLOL TARTRATE 25 MG TABLET PO SCH ×2 (08:14→16:41)
[2022-04-21] MEDS: AmLODIPine BESYLATE 5 MG TABLET PO SCH ×2 (08:14→16:41)
[2022-04-21] MEDS: OMEGA-3/DHA/EPA/FISH OIL 1,000 MG CAPSULE PO SCH (08:14)
[2022-04-21] MEDS: NICOTINE 7 MG/24 HOUR PATCH TD SCH (09:00)
[2022-04-21] MEDS: DICLOFENAC SODIUM 1% 100 GM GEL [4GM] TP SCH ×2 (09:00→16:41)
[2022-04-21] MEDS: LURASIDONE HCL 60 MG TABLET PO SCH (16:40)
[2022-04-21 16:55] VITALS: BP 100/63
[2022-04-21] MEDS: VALPROIC ACID 250 MG/5 ML SOLUTION UDCUP PO SCH (21:15)
[2022-04-21] MEDS: MELATONIN 5 MG TABLET PO SCH (21:15)
[2022-04-22 07:37] LABS: COVID AG,FIA SOURCE NASAL SWAB
[2022-04-22] MEDS: PANTOPRAZOLE SODIUM 40 MG DR TABLET PO SCH (08:22)
[2022-04-22] MEDS: METOPROLOL TARTRATE 25 MG TABLET PO SCH ×2 (08:22→16:33)
[2022-04-22] MEDS: MULTIVITAMINS WITH MINERALS, THERAPEUTIC TABLET PO SCH (08:22)
[2022-04-22] MEDS: DULoxetine HCL 30 MG CAPSULE PO SCH (08:22)
[2022-04-22] MEDS: AmLODIPine BESYLATE 5 MG TABLET PO SCH ×2 (08:22→16:33)
[2022-04-22] MEDS: OMEGA-3/DHA/EPA/FISH OIL 1,000 MG CAPSULE PO SCH (08:23)
[2022-04-22] MEDS: NICOTINE 7 MG/24 HOUR PATCH TD SCH (09:00)
[2022-04-22] MEDS: DICLOFENAC SODIUM 1% 100 GM GEL [4GM] TP SCH ×2 (09:00→16:33)
[2022-04-22 09:13] VITALS: BP 110/63
[2022-04-22 16:57] VITALS: BP 127/76
[2022-04-22] MEDS: LURASIDONE HCL 60 MG TABLET PO SCH (17:30)
[2022-04-22] MEDS: MELATONIN 5 MG TABLET PO SCH (20:35)
[2022-04-22] MEDS: VALPROIC ACID 250 MG/5 ML SOLUTION UDCUP PO SCH (20:35)
[2022-04-23 04:08] VITALS: BP 135/80
[2022-04-23 08:05] VITALS: BP 118/76
[2022-04-23] MEDS: MULTIVITAMINS WITH MINERALS, THERAPEUTIC TABLET PO SCH (09:14)
[2022-04-23] MEDS: OMEGA-3/DHA/EPA/FISH OIL 1,000 MG CAPSULE PO SCH (09:14)
[2022-04-23] MEDS: AmLODIPine BESYLATE 5 MG TABLET PO SCH ×2 (09:15→17:00)
[2022-04-23] MEDS: DULoxetine HCL 30 MG CAPSULE PO SCH (09:15)
[2022-04-23] MEDS: PANTOPRAZOLE SODIUM 40 MG DR TABLET PO SCH (09:15)
[2022-04-23] MEDS: METOPROLOL TARTRATE 25 MG TABLET PO SCH ×2 (09:15→17:00)
[2022-04-23] MEDS: DICLOFENAC SODIUM 1% 100 GM GEL [4GM] TP SCH ×2 (09:17→17:02)
[2022-04-23] MEDS: NICOTINE 7 MG/24 HOUR PATCH TD SCH (09:19)
[2022-04-23 16:26] VITALS: BP 104/69
[2022-04-23] MEDS: LURASIDONE HCL 60 MG TABLET PO SCH (17:04)
[2022-04-23] MEDS: VALPROIC ACID 250 MG/5 ML SOLUTION UDCUP PO SCH (20:36)
[2022-04-23] MEDS: MELATONIN 5 MG TABLET PO SCH (20:36)
[2022-04-24 08:00] VITALS: BP 150/87
[2022-04-24] MEDS: MULTIVITAMINS WITH MINERALS, THERAPEUTIC TABLET PO SCH (08:48)
[2022-04-24] MEDS: DULoxetine HCL 30 MG CAPSULE PO SCH (08:48)
[2022-04-24] MEDS: PANTOPRAZOLE SODIUM 40 MG DR TABLET PO SCH (08:48)
[2022-04-24] MEDS: AmLODIPine BESYLATE 5 MG TABLET PO SCH ×2 (08:48→16:16)
[2022-04-24] MEDS: OMEGA-3/DHA/EPA/FISH OIL 1,000 MG CAPSULE PO SCH (08:48)
[2022-04-24] MEDS: METOPROLOL TARTRATE 25 MG TABLET PO SCH ×2 (08:49→16:16)
[2022-04-24] MEDS: DICLOFENAC SODIUM 1% 100 GM GEL [4GM] TP SCH ×2 (08:50→16:17)
[2022-04-24] MEDS: NICOTINE 7 MG/24 HOUR PATCH TD SCH (08:52)
[2022-04-24 12:27] VITALS: BP 150/87
[2022-04-24] MEDS: LURASIDONE HCL 60 MG TABLET PO SCH (16:16)
[2022-04-24] MEDS: MELATONIN 5 MG TABLET PO SCH (20:11)
[2022-04-24] MEDS: VALPROIC ACID 250 MG/5 ML SOLUTION UDCUP PO SCH (20:11)
[2022-04-25 02:30] VITALS: BP 119/79
[2022-04-25 08:00] VITALS: BP 127/72
[2022-04-25] MEDS: METOPROLOL TARTRATE 25 MG TABLET PO SCH ×2 (08:44→16:08)
[2022-04-25] MEDS: OMEGA-3/DHA/EPA/FISH OIL 1,000 MG CAPSULE PO SCH (08:44)
[2022-04-25] MEDS: MULTIVITAMINS WITH MINERALS, THERAPEUTIC TABLET PO SCH (08:44)
[2022-04-25] MEDS: DULoxetine HCL 30 MG CAPSULE PO SCH (08:44)
[2022-04-25] MEDS: PANTOPRAZOLE SODIUM 40 MG DR TABLET PO SCH (08:44)
[2022-04-25] MEDS: AmLODIPine BESYLATE 5 MG TABLET PO SCH ×2 (08:45→16:08)
[2022-04-25] MEDS: NICOTINE 7 MG/24 HOUR PATCH TD SCH (09:00)
[2022-04-25] MEDS: DICLOFENAC SODIUM 1% 100 GM GEL [4GM] TP SCH ×2 (09:00→16:08)
[2022-04-25 16:00] VITALS: BP 117/83
[2022-04-25] MEDS: LURASIDONE HCL 60 MG TABLET PO SCH (17:15)
[2022-04-25] MEDS: VALPROIC ACID 250 MG/5 ML SOLUTION UDCUP PO SCH (20:26)
[2022-04-25] MEDS: MELATONIN 5 MG TABLET PO SCH (20:26)
[2022-04-26] MEDS: ZOLPIDEM TARTRATE 10 MG TABLET PO PRN (01:34)
[2022-04-26 02:31] VITALS: BP 110/80
[2022-04-26 08:02] VITALS: BP 145/90
[2022-04-26] MEDS: METOPROLOL TARTRATE 25 MG TABLET PO SCH ×2 (08:20→17:20)
[2022-04-26] MEDS: PANTOPRAZOLE SODIUM 40 MG DR TABLET PO SCH (08:20)
[2022-04-26] MEDS: AmLODIPine BESYLATE 5 MG TABLET PO SCH ×2 (08:20→17:20)
[2022-04-26] MEDS: OMEGA-3/DHA/EPA/FISH OIL 1,000 MG CAPSULE PO SCH (08:20)
[2022-04-26] MEDS: DULoxetine HCL 30 MG CAPSULE PO SCH (08:20)
[2022-04-26] MEDS: MULTIVITAMINS WITH MINERALS, THERAPEUTIC TABLET PO SCH (08:20)
[2022-04-26] MEDS: NICOTINE 7 MG/24 HOUR PATCH TD SCH (08:21)
[2022-04-26] MEDS: DICLOFENAC SODIUM 1% 100 GM GEL [4GM] TP SCH ×2 (08:21→17:22)
[2022-04-26 16:48] VITALS: BP 134/75
[2022-04-26] MEDS: LURASIDONE HCL 60 MG TABLET PO SCH (17:20)
[2022-04-26] MEDS: MELATONIN 5 MG TABLET PO SCH (20:19)
[2022-04-26] MEDS: VALPROIC ACID 250 MG/5 ML SOLUTION UDCUP PO SCH (20:19)
[2022-04-27 08:05] VITALS: BP 122/71
[2022-04-27] MEDS: METOPROLOL TARTRATE 25 MG TABLET PO SCH ×2 (09:17→16:40)
[2022-04-27] MEDS: AmLODIPine BESYLATE 5 MG TABLET PO SCH ×2 (09:17→16:40)
[2022-04-27] MEDS: PANTOPRAZOLE SODIUM 40 MG DR TABLET PO SCH (09:17)
[2022-04-27] MEDS: DICLOFENAC SODIUM 1% 100 GM GEL [4GM] TP SCH ×2 (09:17→16:40)
[2022-04-27] MEDS: DULoxetine HCL 30 MG CAPSULE PO SCH (09:18)
[2022-04-27] MEDS: NICOTINE 7 MG/24 HOUR PATCH TD SCH (09:18)
[2022-04-27] MEDS: MULTIVITAMINS WITH MINERALS, THERAPEUTIC TABLET PO SCH (09:18)
[2022-04-27] MEDS: OMEGA-3/DHA/EPA/FISH OIL 1,000 MG CAPSULE PO SCH (09:18)
[2022-04-27] MEDS: LURASIDONE HCL 60 MG TABLET PO SCH (16:40)
[2022-04-27 16:42] VITALS: BP 120/73
[2022-04-27] MEDS: MELATONIN 5 MG TABLET PO SCH (20:33)
[2022-04-27] MEDS: VALPROIC ACID 250 MG/5 ML SOLUTION UDCUP PO SCH (20:33)
[2022-04-28 08:30] VITALS: BP 139/68
[2022-04-28] MEDS: DICLOFENAC SODIUM 1% 100 GM GEL [4GM] TP SCH ×2 (09:30→18:05)
[2022-04-28] MEDS: DULoxetine HCL 30 MG CAPSULE PO SCH (09:31)
[2022-04-28] MEDS: METOPROLOL TARTRATE 25 MG TABLET PO SCH ×2 (09:31→18:04)
[2022-04-28] MEDS: OMEGA-3/DHA/EPA/FISH OIL 1,000 MG CAPSULE PO SCH (09:31)
[2022-04-28] MEDS: MULTIVITAMINS WITH MINERALS, THERAPEUTIC TABLET PO SCH (09:31)
[2022-04-28] MEDS: PANTOPRAZOLE SODIUM 40 MG DR TABLET PO SCH (09:31)
[2022-04-28] MEDS: AmLODIPine BESYLATE 5 MG TABLET PO SCH ×2 (09:32→18:03)
[2022-04-28] MEDS: NICOTINE 7 MG/24 HOUR PATCH TD SCH (09:34)
[2022-04-28 16:25] VITALS: BP 127/82
[2022-04-28] MEDS: LURASIDONE HCL 60 MG TABLET PO SCH (18:03)
[2022-04-28] MEDS: MELATONIN 5 MG TABLET PO SCH (20:56)
[2022-04-28] MEDS: VALPROIC ACID 250 MG/5 ML SOLUTION UDCUP PO SCH (20:56)
[2022-04-29 04:02] VITALS: BP 162/90
[2022-04-29] MEDS: AmLODIPine BESYLATE 5 MG TABLET PO SCH ×2 (08:26→16:41)
[2022-04-29] MEDS: PANTOPRAZOLE SODIUM 40 MG DR TABLET PO SCH (08:26)
[2022-04-29] MEDS: OMEGA-3/DHA/EPA/FISH OIL 1,000 MG CAPSULE PO SCH (08:26)
[2022-04-29] MEDS: DULoxetine HCL 30 MG CAPSULE PO SCH (08:26)
[2022-04-29] MEDS: MULTIVITAMINS WITH MINERALS, THERAPEUTIC TABLET PO SCH (08:26)
[2022-04-29] MEDS: METOPROLOL TARTRATE 25 MG TABLET PO SCH ×2 (08:27→16:41)
[2022-04-29] MEDS: NICOTINE 7 MG/24 HOUR PATCH TD SCH (08:28)
[2022-04-29] MEDS: DICLOFENAC SODIUM 1% 100 GM GEL [4GM] TP SCH ×2 (08:30→17:06)
[2022-04-29 09:14] LABS: COVID AG,FIA SOURCE NASAL SWAB
[2022-04-29 09:15] VITALS: BP 103/68
[2022-04-29 16:12] VITALS: BP 125/79
[2022-04-29] MEDS: LURASIDONE HCL 60 MG TABLET PO SCH (16:41)
[2022-04-29] MEDS: MELATONIN 5 MG TABLET PO SCH (20:24)
[2022-04-29] MEDS: VALPROIC ACID 250 MG/5 ML SOLUTION UDCUP PO SCH (20:24)
[2022-04-30 08:29] VITALS: BP 145/87
[2022-04-30] MEDS: MULTIVITAMINS WITH MINERALS, THERAPEUTIC TABLET PO SCH (09:03)
[2022-04-30] MEDS: METOPROLOL TARTRATE 25 MG TABLET PO SCH ×2 (09:04→17:13)
[2022-04-30] MEDS: AmLODIPine BESYLATE 5 MG TABLET PO SCH ×2 (09:04→17:13)
[2022-04-30] MEDS: NICOTINE 7 MG/24 HOUR PATCH TD SCH (09:04)
[2022-04-30] MEDS: DULoxetine HCL 30 MG CAPSULE PO SCH (09:04)
[2022-04-30] MEDS: PANTOPRAZOLE SODIUM 40 MG DR TABLET PO SCH (09:04)
[2022-04-30] MEDS: DICLOFENAC SODIUM 1% 100 GM GEL [4GM] TP SCH ×2 (09:06→17:00)
[2022-04-30] MEDS: OMEGA-3/DHA/EPA/FISH OIL 1,000 MG CAPSULE PO SCH (09:06)
[2022-04-30] MEDS: PALIPERIDONE PALMITATE 117 MG/0.75 ML SYRINGE IM SCH (09:54)
[2022-04-30] MEDS: LURASIDONE HCL 20 MG TABLET PO PRN (11:59)
[2022-04-30 16:00] VITALS: BP 110/71
[2022-04-30] MEDS: LURASIDONE HCL 60 MG TABLET PO SCH (17:13)
[2022-04-30] MEDS: MELATONIN 5 MG TABLET PO SCH (20:33)
[2022-04-30] MEDS: VALPROIC ACID 250 MG/5 ML SOLUTION UDCUP PO SCH (20:45)
[2022-05-01 08:36] VITALS: BP 121/62
[2022-05-01] MEDS: PANTOPRAZOLE SODIUM 40 MG DR TABLET PO SCH (09:51)
[2022-05-01] MEDS: OMEGA-3/DHA/EPA/FISH OIL 1,000 MG CAPSULE PO SCH (09:51)
[2022-05-01] MEDS: MULTIVITAMINS WITH MINERALS, THERAPEUTIC TABLET PO SCH (09:51)
[2022-05-01] MEDS: DULoxetine HCL 30 MG CAPSULE PO SCH (09:51)
[2022-05-01] MEDS: METOPROLOL TARTRATE 25 MG TABLET PO SCH ×2 (09:51→17:38)
[2022-05-01] MEDS: AmLODIPine BESYLATE 5 MG TABLET PO SCH ×2 (09:51→17:38)
[2022-05-01] MEDS: NICOTINE 7 MG/24 HOUR PATCH TD SCH (09:52)
[2022-05-01] MEDS: DICLOFENAC SODIUM 1% 100 GM GEL [4GM] TP SCH ×2 (09:54→17:38)
[2022-05-01 11:02] VITALS: BP 124/68
[2022-05-01] MEDS: ACETAMINOPHEN 325 MG TABLET PO PRN (11:02)
[2022-05-01 16:00] VITALS: BP 121/62
[2022-05-01] MEDS: LURASIDONE HCL 80 MG TABLET PO SCH (17:38)
[2022-05-01 18:13] VITALS: BP 128/60
[2022-05-01] MEDS: MELATONIN 5 MG TABLET PO SCH (20:40)
[2022-05-01] MEDS: VALPROIC ACID 250 MG/5 ML SOLUTION UDCUP PO SCH (20:40)
[2022-05-02] MEDS: NICOTINE 7 MG/24 HOUR PATCH TD SCH (09:00)
[2022-05-02] MEDS: DICLOFENAC SODIUM 1% 100 GM GEL [4GM] TP SCH ×2 (09:00→17:00)
[2022-05-02] MEDS: OMEGA-3/DHA/EPA/FISH OIL 1,000 MG CAPSULE PO SCH (09:44)
[2022-05-02] MEDS: MULTIVITAMINS WITH MINERALS, THERAPEUTIC TABLET PO SCH (09:45)
[2022-05-02] MEDS: AmLODIPine BESYLATE 5 MG TABLET PO SCH ×2 (09:45→17:00)
[2022-05-02] MEDS: METOPROLOL TARTRATE 25 MG TABLET PO SCH ×2 (09:45→17:00)
[2022-05-02] MEDS: DULoxetine HCL 30 MG CAPSULE PO SCH (09:45)
[2022-05-02] MEDS: PANTOPRAZOLE SODIUM 40 MG DR TABLET PO SCH (09:45)
[2022-05-02 09:55] VITALS: BP 142/89
[2022-05-02 16:21] VITALS: BP 112/75
[2022-05-02] MEDS: LURASIDONE HCL 80 MG TABLET PO SCH (17:00)
[2022-05-02] MEDS: VALPROIC ACID 250 MG/5 ML SOLUTION UDCUP PO SCH (21:33)
[2022-05-02] MEDS: MELATONIN 5 MG TABLET PO SCH (21:33)
[2022-05-03] MEDS: MULTIVITAMINS WITH MINERALS, THERAPEUTIC TABLET PO SCH (09:02)
[2022-05-03] MEDS: OMEGA-3/DHA/EPA/FISH OIL 1,000 MG CAPSULE PO SCH (09:03)
[2022-05-03] MEDS: PANTOPRAZOLE SODIUM 40 MG DR TABLET PO SCH (09:03)
[2022-05-03] MEDS: DULoxetine HCL 30 MG CAPSULE PO SCH (09:03)
[2022-05-03] MEDS: AmLODIPine BESYLATE 5 MG TABLET PO SCH ×2 (09:04→17:00)
[2022-05-03] MEDS: METOPROLOL TARTRATE 25 MG TABLET PO SCH ×2 (09:04→17:00)
[2022-05-03] MEDS: DICLOFENAC SODIUM 1% 100 GM GEL [4GM] TP SCH ×2 (09:05→16:40)
[2022-05-03 09:10] VITALS: BP 132/59
[2022-05-03] MEDS: NICOTINE 7 MG/24 HOUR PATCH TD SCH (09:11)
[2022-05-03 16:19] VITALS: BP 108/60
[2022-05-03] MEDS: LURASIDONE HCL 80 MG TABLET PO SCH (16:40)
[2022-05-03 17:00] VITALS: BP 104/54
[2022-05-03] MEDS: MELATONIN 5 MG TABLET PO SCH (20:39)
[2022-05-03] MEDS: VALPROIC ACID 250 MG/5 ML SOLUTION UDCUP PO SCH (20:39)
[2022-05-04 06:39] VITALS: BP 142/76
[2022-05-04 08:01] VITALS: BP 111/69
[2022-05-04] MEDS: MULTIVITAMINS WITH MINERALS, THERAPEUTIC TABLET PO SCH (09:51)
[2022-05-04] MEDS: AmLODIPine BESYLATE 5 MG TABLET PO SCH ×2 (09:51→17:03)
[2022-05-04] MEDS: OMEGA-3/DHA/EPA/FISH OIL 1,000 MG CAPSULE PO SCH (09:51)
[2022-05-04] MEDS: PANTOPRAZOLE SODIUM 40 MG DR TABLET PO SCH (09:52)
[2022-05-04] MEDS: NICOTINE 7 MG/24 HOUR PATCH TD SCH (09:52)
[2022-05-04] MEDS: METOPROLOL TARTRATE 25 MG TABLET PO SCH ×2 (09:52→17:00)
[2022-05-04] MEDS: DULoxetine HCL 30 MG CAPSULE PO SCH (09:52)
[2022-05-04] MEDS: DICLOFENAC SODIUM 1% 100 GM GEL [4GM] TP SCH ×2 (09:55→17:03)
[2022-05-04] MEDS: LURASIDONE HCL 80 MG TABLET PO SCH (17:03)
[2022-05-04 17:48] VITALS: BP 107/70
[2022-05-04] MEDS: VALPROIC ACID 250 MG/5 ML SOLUTION UDCUP PO SCH (20:27)
[2022-05-04] MEDS: MELATONIN 5 MG TABLET PO SCH (20:27)
[2022-05-05 03:54] VITALS: BP 130/73
[2022-05-05 08:58] VITALS: BP 109/73
[2022-05-05] MEDS: PANTOPRAZOLE SODIUM 40 MG DR TABLET PO SCH (10:02)
[2022-05-05] MEDS: AmLODIPine BESYLATE 5 MG TABLET PO SCH ×2 (10:02→16:12)
[2022-05-05] MEDS: OMEGA-3/DHA/EPA/FISH OIL 1,000 MG CAPSULE PO SCH (10:02)
[2022-05-05] MEDS: MULTIVITAMINS WITH MINERALS, THERAPEUTIC TABLET PO SCH (10:02)
[2022-05-05] MEDS: DULoxetine HCL 30 MG CAPSULE PO SCH (10:02)
[2022-05-05] MEDS: DICLOFENAC SODIUM 1% 100 GM GEL [4GM] TP SCH ×2 (10:03→16:12)
[2022-05-05] MEDS: NICOTINE 7 MG/24 HOUR PATCH TD SCH (10:03)
[2022-05-05] MEDS: METOPROLOL TARTRATE 25 MG TABLET PO SCH ×2 (10:03→16:12)
[2022-05-05] MEDS: LURASIDONE HCL 80 MG TABLET PO SCH (16:12)
[2022-05-05 16:43] VITALS: BP 115/65
[2022-05-05] MEDS: VALPROIC ACID 250 MG/5 ML SOLUTION UDCUP PO SCH (20:10)
[2022-05-05] MEDS: MELATONIN 5 MG TABLET PO SCH (20:10)
[2022-05-06 06:57] LABS: COVID AG,FIA SOURCE NASAL SWAB
[2022-05-06 08:30] VITALS: BP 148/78
[2022-05-06] MEDS: DICLOFENAC SODIUM 1% 100 GM GEL [4GM] TP SCH ×2 (09:00→16:12)
[2022-05-06] MEDS: NICOTINE 7 MG/24 HOUR PATCH TD SCH (10:31)
[2022-05-06] MEDS: MULTIVITAMINS WITH MINERALS, THERAPEUTIC TABLET PO SCH (10:31)
[2022-05-06] MEDS: AmLODIPine BESYLATE 5 MG TABLET PO SCH ×2 (10:31→16:11)
[2022-05-06] MEDS: DULoxetine HCL 30 MG CAPSULE PO SCH (10:32)
[2022-05-06] MEDS: PANTOPRAZOLE SODIUM 40 MG DR TABLET PO SCH (10:33)
[2022-05-06] MEDS: METOPROLOL TARTRATE 25 MG TABLET PO SCH ×2 (10:33→16:11)
[2022-05-06] MEDS: OMEGA-3/DHA/EPA/FISH OIL 1,000 MG CAPSULE PO SCH (10:34)
[2022-05-06 16:57] VITALS: BP 133/80
[2022-05-06] MEDS: LURASIDONE HCL 80 MG TABLET PO SCH (17:30)
[2022-05-06] MEDS: MELATONIN 5 MG TABLET PO SCH (20:23)
[2022-05-06] MEDS: VALPROIC ACID 250 MG/5 ML SOLUTION UDCUP PO SCH (20:24)
[2022-05-07] MEDS: DULoxetine HCL 30 MG CAPSULE PO SCH (08:47)
[2022-05-07] MEDS: OMEGA-3/DHA/EPA/FISH OIL 1,000 MG CAPSULE PO SCH (08:47)
[2022-05-07] MEDS: MULTIVITAMINS WITH MINERALS, THERAPEUTIC TABLET PO SCH (08:47)
[2022-05-07] MEDS: AmLODIPine BESYLATE 5 MG TABLET PO SCH ×2 (08:48→16:37)
[2022-05-07] MEDS: PANTOPRAZOLE SODIUM 40 MG DR TABLET PO SCH (08:48)
[2022-05-07] MEDS: METOPROLOL TARTRATE 25 MG TABLET PO SCH ×2 (08:48→16:37)
[2022-05-07] MEDS: NICOTINE 7 MG/24 HOUR PATCH TD SCH (08:49)
[2022-05-07] MEDS: DICLOFENAC SODIUM 1% 100 GM GEL [4GM] TP SCH ×2 (08:49→16:35)
[2022-05-07 09:06] VITALS: BP 124/57
[2022-05-07 16:00] VITALS: BP 121/71
[2022-05-07] MEDS: LURASIDONE HCL 80 MG TABLET PO SCH (17:30)
[2022-05-07] MEDS: MELATONIN 5 MG TABLET PO SCH (20:43)
[2022-05-07] MEDS: VALPROIC ACID 250 MG/5 ML SOLUTION UDCUP PO SCH (20:43)
[2022-05-08 08:02] VITALS: BP 127/76
[2022-05-08] MEDS: DICLOFENAC SODIUM 1% 100 GM GEL [4GM] TP SCH ×2 (09:00→16:40)
[2022-05-08] MEDS: AmLODIPine BESYLATE 5 MG TABLET PO SCH ×2 (09:06→16:40)
[2022-05-08] MEDS: MULTIVITAMINS WITH MINERALS, THERAPEUTIC TABLET PO SCH (09:06)
[2022-05-08] MEDS: DULoxetine HCL 30 MG CAPSULE PO SCH (09:06)
[2022-05-08] MEDS: METOPROLOL TARTRATE 25 MG TABLET PO SCH ×2 (09:06→16:41)
[2022-05-08] MEDS: OMEGA-3/DHA/EPA/FISH OIL 1,000 MG CAPSULE PO SCH (09:07)
[2022-05-08] MEDS: PANTOPRAZOLE SODIUM 40 MG DR TABLET PO SCH (09:07)
[2022-05-08] MEDS: NICOTINE 7 MG/24 HOUR PATCH TD SCH (09:08)
[2022-05-08 16:00] VITALS: BP 119/73
[2022-05-08] MEDS: LURASIDONE HCL 80 MG TABLET PO SCH (16:40)
[2022-05-08] MEDS: MELATONIN 5 MG TABLET PO SCH (20:48)
[2022-05-08] MEDS: VALPROIC ACID 250 MG/5 ML SOLUTION UDCUP PO SCH (20:50)
[2022-05-09] MEDS: DULoxetine HCL 30 MG CAPSULE PO SCH (08:44)
[2022-05-09] MEDS: PANTOPRAZOLE SODIUM 40 MG DR TABLET PO SCH (08:44)
[2022-05-09] MEDS: AmLODIPine BESYLATE 5 MG TABLET PO SCH ×2 (08:44→16:24)
[2022-05-09] MEDS: OMEGA-3/DHA/EPA/FISH OIL 1,000 MG CAPSULE PO SCH (08:44)
[2022-05-09] MEDS: METOPROLOL TARTRATE 25 MG TABLET PO SCH ×2 (08:44→16:24)
[2022-05-09] MEDS: NICOTINE 7 MG/24 HOUR PATCH TD SCH (08:44)
[2022-05-09] MEDS: MULTIVITAMINS WITH MINERALS, THERAPEUTIC TABLET PO SCH (08:44)
[2022-05-09 08:46] VITALS: BP 116/64
[2022-05-09] MEDS: DICLOFENAC SODIUM 1% 100 GM GEL [4GM] TP SCH ×2 (09:00→16:25)
[2022-05-09 16:02] VITALS: BP 131/84
[2022-05-09 16:06] VITALS: BP 123/76
[2022-05-09] MEDS: LURASIDONE HCL 80 MG TABLET PO SCH (17:50)
[2022-05-09] MEDS: MELATONIN 5 MG TABLET PO SCH (20:36)
[2022-05-09] MEDS: VALPROIC ACID 250 MG/5 ML SOLUTION UDCUP PO SCH (20:37)
[2022-05-10 08:00] VITALS: BP 123/75
[2022-05-10] MEDS: NICOTINE 7 MG/24 HOUR PATCH TD SCH (08:32)
[2022-05-10] MEDS: PANTOPRAZOLE SODIUM 40 MG DR TABLET PO SCH (08:32)
[2022-05-10] MEDS: OMEGA-3/DHA/EPA/FISH OIL 1,000 MG CAPSULE PO SCH (08:33)
[2022-05-10] MEDS: METOPROLOL TARTRATE 25 MG TABLET PO SCH ×2 (08:33→16:27)
[2022-05-10] MEDS: DULoxetine HCL 30 MG CAPSULE PO SCH (08:33)
[2022-05-10] MEDS: AmLODIPine BESYLATE 5 MG TABLET PO SCH ×2 (08:33→16:27)
[2022-05-10] MEDS: MULTIVITAMINS WITH MINERALS, THERAPEUTIC TABLET PO SCH (08:33)
[2022-05-10] MEDS: DICLOFENAC SODIUM 1% 100 GM GEL [4GM] TP SCH ×2 (08:36→16:28)
[2022-05-10 16:27] VITALS: BP 136/80
[2022-05-10] MEDS: LURASIDONE HCL 80 MG TABLET PO SCH (16:50)
[2022-05-10] MEDS: VALPROIC ACID 250 MG/5 ML SOLUTION UDCUP PO SCH (20:26)
[2022-05-10] MEDS: MELATONIN 5 MG TABLET PO SCH (20:26)
[2022-05-11 08:02] VITALS: BP 141/82
[2022-05-11] MEDS: DICLOFENAC SODIUM 1% 100 GM GEL [4GM] TP SCH ×2 (09:00→16:37)
[2022-05-11] MEDS: OMEGA-3/DHA/EPA/FISH OIL 1,000 MG CAPSULE PO SCH (09:13)
[2022-05-11] MEDS: MULTIVITAMINS WITH MINERALS, THERAPEUTIC TABLET PO SCH (09:13)
[2022-05-11] MEDS: NICOTINE 7 MG/24 HOUR PATCH TD SCH (09:13)
[2022-05-11] MEDS: PANTOPRAZOLE SODIUM 40 MG DR TABLET PO SCH (09:15)
[2022-05-11] MEDS: DULoxetine HCL 30 MG CAPSULE PO SCH (09:16)
[2022-05-11] MEDS: AmLODIPine BESYLATE 5 MG TABLET PO SCH ×2 (09:16→17:00)
[2022-05-11] MEDS: METOPROLOL TARTRATE 25 MG TABLET PO SCH ×2 (09:16→17:00)
[2022-05-11 16:18] VITALS: BP 109/69
[2022-05-11] MEDS: LURASIDONE HCL 80 MG TABLET PO SCH (16:35)
[2022-05-11] MEDS: VALPROIC ACID 250 MG/5 ML SOLUTION UDCUP PO SCH (20:11)
[2022-05-11] MEDS: MELATONIN 5 MG TABLET PO SCH (20:11)
[2022-05-12 02:30] VITALS: BP 115/69
[2022-05-12] MEDS: LURASIDONE HCL 20 MG TABLET PO PRN (02:32)
[2022-05-12] MEDS: ACETAMINOPHEN 325 MG TABLET PO PRN (02:32)
[2022-05-12 08:50] VITALS: BP 106/63
[2022-05-12] MEDS: AmLODIPine BESYLATE 5 MG TABLET PO SCH ×2 (09:16→16:43)
[2022-05-12] MEDS: METOPROLOL TARTRATE 25 MG TABLET PO SCH ×2 (09:16→16:43)
[2022-05-12] MEDS: DULoxetine HCL 30 MG CAPSULE PO SCH (09:16)
[2022-05-12] MEDS: PANTOPRAZOLE SODIUM 40 MG DR TABLET PO SCH (09:16)
[2022-05-12] MEDS: OMEGA-3/DHA/EPA/FISH OIL 1,000 MG CAPSULE PO SCH (09:16)
[2022-05-12] MEDS: MULTIVITAMINS WITH MINERALS, THERAPEUTIC TABLET PO SCH (09:16)
[2022-05-12] MEDS: NICOTINE 7 MG/24 HOUR PATCH TD SCH (09:17)
[2022-05-12] MEDS: DICLOFENAC SODIUM 1% 100 GM GEL [4GM] TP SCH ×2 (09:18→16:44)
[2022-05-12 16:26] VITALS: BP 108/69
[2022-05-12] MEDS: LURASIDONE HCL 80 MG TABLET PO SCH (16:44)
[2022-05-12] MEDS: MELATONIN 5 MG TABLET PO SCH (20:36)
[2022-05-12] MEDS: VALPROIC ACID 250 MG/5 ML SOLUTION UDCUP PO SCH (20:37)
[2022-05-13 07:11] LABS: COVID AG,FIA SOURCE NASAL SWAB
[2022-05-13] MEDS: METOPROLOL TARTRATE 25 MG TABLET PO SCH ×2 (08:19→16:44)
[2022-05-13] MEDS: OMEGA-3/DHA/EPA/FISH OIL 1,000 MG CAPSULE PO SCH (08:19)
[2022-05-13] MEDS: AmLODIPine BESYLATE 5 MG TABLET PO SCH ×2 (08:19→16:08)
[2022-05-13] MEDS: PANTOPRAZOLE SODIUM 40 MG DR TABLET PO SCH (08:19)
[2022-05-13] MEDS: DULoxetine HCL 30 MG CAPSULE PO SCH (08:20)
[2022-05-13] MEDS: MULTIVITAMINS WITH MINERALS, THERAPEUTIC TABLET PO SCH (08:20)
[2022-05-13] MEDS: NICOTINE 7 MG/24 HOUR PATCH TD SCH (08:26)
[2022-05-13 08:55] VITALS: BP 123/81
[2022-05-13] MEDS: DICLOFENAC SODIUM 1% 100 GM GEL [4GM] TP SCH ×2 (09:00→16:08)
[2022-05-13] MEDS: ACETAMINOPHEN 325 MG TABLET PO PRN (09:06)
[2022-05-13] MEDS: LURASIDONE HCL 80 MG TABLET PO SCH (16:08)
[2022-05-13 16:16] VITALS: BP 103/56
[2022-05-13] MEDS: MELATONIN 5 MG TABLET PO SCH (20:04)
[2022-05-13] MEDS: VALPROIC ACID 250 MG/5 ML SOLUTION UDCUP PO SCH (20:05)
[2022-05-14 04:13] VITALS: BP 110/70
[2022-05-14] MEDS: OMEGA-3/DHA/EPA/FISH OIL 1,000 MG CAPSULE PO SCH (08:20)
[2022-05-14] MEDS: METOPROLOL TARTRATE 25 MG TABLET PO SCH ×2 (08:20→17:09)
[2022-05-14] MEDS: DULoxetine HCL 30 MG CAPSULE PO SCH (08:20)
[2022-05-14] MEDS: DICLOFENAC SODIUM 1% 100 GM GEL [4GM] TP SCH ×2 (08:20→17:09)
[2022-05-14] MEDS: AmLODIPine BESYLATE 5 MG TABLET PO SCH ×2 (08:20→17:09)
[2022-05-14] MEDS: MULTIVITAMINS WITH MINERALS, THERAPEUTIC TABLET PO SCH (08:20)
[2022-05-14] MEDS: PANTOPRAZOLE SODIUM 40 MG DR TABLET PO SCH (08:20)
[2022-05-14] MEDS: NICOTINE 7 MG/24 HOUR PATCH TD SCH (08:21)
[2022-05-14 08:37] VITALS: BP 112/71
[2022-05-14] MEDS: LURASIDONE HCL 80 MG TABLET PO SCH (17:09)
[2022-05-14 17:55] VITALS: BP 104/61
[2022-05-14] MEDS: VALPROIC ACID 250 MG/5 ML SOLUTION UDCUP PO SCH (20:02)
[2022-05-14] MEDS: MELATONIN 5 MG TABLET PO SCH (20:02)
[2022-05-15 05:10] VITALS: BP 110/70
[2022-05-15] MEDS: ACETAMINOPHEN 325 MG TABLET PO PRN ×2 (05:12→09:50)
[2022-05-15 06:12] VITALS: BP 110/70
[2022-05-15 08:45] VITALS: BP 124/76
[2022-05-15] MEDS: DICLOFENAC SODIUM 1% 100 GM GEL [4GM] TP SCH ×2 (09:32→16:56)
[2022-05-15] MEDS: MULTIVITAMINS WITH MINERALS, THERAPEUTIC TABLET PO SCH (09:33)
[2022-05-15] MEDS: NICOTINE 7 MG/24 HOUR PATCH TD SCH (09:33)
[2022-05-15] MEDS: AmLODIPine BESYLATE 5 MG TABLET PO SCH ×2 (09:33→16:56)
[2022-05-15] MEDS: DULoxetine HCL 30 MG CAPSULE PO SCH (09:33)
[2022-05-15] MEDS: METOPROLOL TARTRATE 25 MG TABLET PO SCH ×2 (09:33→16:56)
[2022-05-15] MEDS: OMEGA-3/DHA/EPA/FISH OIL 1,000 MG CAPSULE PO SCH (09:33)
[2022-05-15] MEDS: PANTOPRAZOLE SODIUM 40 MG DR TABLET PO SCH (09:33)
[2022-05-15 09:50] VITALS: BP 126/74
[2022-05-15 10:50] VITALS: BP 122/70
[2022-05-15 16:00] VITALS: BP 100/64
[2022-05-15] MEDS: LURASIDONE HCL 60 MG TABLET PO SCH (16:55)
[2022-05-15] MEDS: MELATONIN 5 MG TABLET PO SCH (20:21)
[2022-05-15] MEDS: VALPROIC ACID 250 MG/5 ML SOLUTION UDCUP PO SCH (20:22)
[2022-05-16 08:07] VITALS: BP 102/65
[2022-05-16] MEDS: AmLODIPine BESYLATE 5 MG TABLET PO SCH ×2 (08:58→16:29)
[2022-05-16] MEDS: OMEGA-3/DHA/EPA/FISH OIL 1,000 MG CAPSULE PO SCH (08:58)
[2022-05-16] MEDS: PANTOPRAZOLE SODIUM 40 MG DR TABLET PO SCH (08:58)
[2022-05-16] MEDS: DULoxetine HCL 30 MG CAPSULE PO SCH (08:58)
[2022-05-16] MEDS: MULTIVITAMINS WITH MINERALS, THERAPEUTIC TABLET PO SCH (08:58)
[2022-05-16] MEDS: METOPROLOL TARTRATE 25 MG TABLET PO SCH ×2 (08:58→16:29)
[2022-05-16] MEDS: DICLOFENAC SODIUM 1% 100 GM GEL [4GM] TP SCH ×2 (09:00→16:29)
[2022-05-16] MEDS: NICOTINE 7 MG/24 HOUR PATCH TD SCH (09:02)
[2022-05-16 16:00] VITALS: BP 108/68
[2022-05-16] MEDS: LURASIDONE HCL 60 MG TABLET PO SCH (16:29)
[2022-05-16] MEDS: VALPROIC ACID 250 MG/5 ML SOLUTION UDCUP PO SCH (20:15)
[2022-05-16] MEDS: MELATONIN 5 MG TABLET PO SCH (20:15)
[2022-05-17 04:36] VITALS: BP 139/70
[2022-05-17 08:10] VITALS: BP 115/74
[2022-05-17] MEDS: MULTIVITAMINS WITH MINERALS, THERAPEUTIC TABLET PO SCH (08:48)
[2022-05-17] MEDS: OMEGA-3/DHA/EPA/FISH OIL 1,000 MG CAPSULE PO SCH (08:48)
[2022-05-17] MEDS: AmLODIPine BESYLATE 5 MG TABLET PO SCH ×2 (08:48→16:44)
[2022-05-17] MEDS: METOPROLOL TARTRATE 25 MG TABLET PO SCH ×2 (08:49→16:44)
[2022-05-17] MEDS: DULoxetine HCL 30 MG CAPSULE PO SCH (08:49)
[2022-05-17] MEDS: PANTOPRAZOLE SODIUM 40 MG DR TABLET PO SCH (08:49)
[2022-05-17] MEDS: DICLOFENAC SODIUM 1% 100 GM GEL [4GM] TP SCH ×2 (08:50→17:00)
[2022-05-17] MEDS: NICOTINE 7 MG/24 HOUR PATCH TD SCH (08:52)
[2022-05-17] MEDS: LURASIDONE HCL 60 MG TABLET PO SCH (16:34)
[2022-05-17 17:00] VITALS: BP 104/61
[2022-05-17] MEDS: VALPROIC ACID 250 MG/5 ML SOLUTION UDCUP PO SCH (20:18)
[2022-05-17] MEDS: MELATONIN 5 MG TABLET PO SCH (20:18)
[2022-05-18] MEDS: MULTIVITAMINS WITH MINERALS, THERAPEUTIC TABLET PO SCH (09:26)
[2022-05-18] MEDS: PANTOPRAZOLE SODIUM 40 MG DR TABLET PO SCH (09:26)
[2022-05-18] MEDS: OMEGA-3/DHA/EPA/FISH OIL 1,000 MG CAPSULE PO SCH (09:26)
[2022-05-18] MEDS: NICOTINE 7 MG/24 HOUR PATCH TD SCH (09:27)
[2022-05-18] MEDS: DULoxetine HCL 30 MG CAPSULE PO SCH (09:27)
[2022-05-18] MEDS: DICLOFENAC SODIUM 1% 100 GM GEL [4GM] TP SCH ×2 (09:27→16:10)
[2022-05-18] MEDS: AmLODIPine BESYLATE 5 MG TABLET PO SCH ×2 (09:28→16:10)
[2022-05-18] MEDS: METOPROLOL TARTRATE 25 MG TABLET PO SCH ×2 (09:28→16:10)
[2022-05-18] MEDS: LURASIDONE HCL 60 MG TABLET PO SCH (16:10)
[2022-05-18] MEDS: VALPROIC ACID 250 MG/5 ML SOLUTION UDCUP PO SCH (20:21)
[2022-05-18] MEDS: MELATONIN 5 MG TABLET PO SCH (20:21)
[2022-05-19] MEDS: AmLODIPine BESYLATE 5 MG TABLET PO SCH ×2 (08:26→16:07)
[2022-05-19] MEDS: PANTOPRAZOLE SODIUM 40 MG DR TABLET PO SCH (08:26)
[2022-05-19] MEDS: OMEGA-3/DHA/EPA/FISH OIL 1,000 MG CAPSULE PO SCH (08:26)
[2022-05-19] MEDS: DULoxetine HCL 30 MG CAPSULE PO SCH (08:26)
[2022-05-19] MEDS: DICLOFENAC SODIUM 1% 100 GM GEL [4GM] TP SCH ×2 (08:26→16:08)
[2022-05-19] MEDS: METOPROLOL TARTRATE 25 MG TABLET PO SCH ×2 (08:26→16:07)
[2022-05-19] MEDS: MULTIVITAMINS WITH MINERALS, THERAPEUTIC TABLET PO SCH (08:26)
[2022-05-19] MEDS: NICOTINE 7 MG/24 HOUR PATCH TD SCH (08:28)
[2022-05-19 10:27] VITALS: BP 131/82
[2022-05-19] MEDS: LURASIDONE HCL 60 MG TABLET PO SCH (16:07)
[2022-05-19] MEDS: VALPROIC ACID 250 MG/5 ML SOLUTION UDCUP PO SCH (20:14)
[2022-05-19] MEDS: MELATONIN 5 MG TABLET PO SCH (20:14)
[2022-05-20 08:34] VITALS: BP 105/67
[2022-05-20 08:36] VITALS: BP 118/77
[2022-05-20] MEDS: DICLOFENAC SODIUM 1% 100 GM GEL [4GM] TP SCH ×2 (09:00→16:50)
[2022-05-20] MEDS: DULoxetine HCL 30 MG CAPSULE PO SCH (09:12)
[2022-05-20] MEDS: OMEGA-3/DHA/EPA/FISH OIL 1,000 MG CAPSULE PO SCH (09:12)
[2022-05-20] MEDS: PANTOPRAZOLE SODIUM 40 MG DR TABLET PO SCH (09:12)
[2022-05-20] MEDS: AmLODIPine BESYLATE 5 MG TABLET PO SCH ×2 (09:12→16:41)
[2022-05-20] MEDS: MULTIVITAMINS WITH MINERALS, THERAPEUTIC TABLET PO SCH (09:12)
[2022-05-20] MEDS: METOPROLOL TARTRATE 25 MG TABLET PO SCH ×2 (09:12→16:41)
[2022-05-20] MEDS: NICOTINE 7 MG/24 HOUR PATCH TD SCH (09:43)
[2022-05-20 16:00] VITALS: BP 121/79
[2022-05-20] MEDS: LURASIDONE HCL 40 MG TABLET PO SCH (16:41)
[2022-05-20] MEDS: VALPROIC ACID 250 MG/5 ML SOLUTION UDCUP PO SCH (20:13)
[2022-05-20] MEDS: MELATONIN 5 MG TABLET PO SCH (20:13)
[2022-05-20 20:53] LABS: COVID AG,FIA SOURCE NASAL SWAB
[2022-05-21] MEDS: DICLOFENAC SODIUM 1% 100 GM GEL [4GM] TP SCH ×2 (08:47→16:24)
[2022-05-21] MEDS: AmLODIPine BESYLATE 5 MG TABLET PO SCH ×2 (08:47→16:24)
[2022-05-21] MEDS: NICOTINE 7 MG/24 HOUR PATCH TD SCH (08:47)
[2022-05-21] MEDS: METOPROLOL TARTRATE 25 MG TABLET PO SCH ×2 (08:47→16:24)
[2022-05-21] MEDS: OMEGA-3/DHA/EPA/FISH OIL 1,000 MG CAPSULE PO SCH (08:47)
[2022-05-21] MEDS: MULTIVITAMINS WITH MINERALS, THERAPEUTIC TABLET PO SCH (08:47)
[2022-05-21] MEDS: PANTOPRAZOLE SODIUM 40 MG DR TABLET PO SCH (08:47)
[2022-05-21] MEDS: DULoxetine HCL 30 MG CAPSULE PO SCH (08:50)
[2022-05-21 09:22] VITALS: BP 129/72
[2022-05-21 16:22] VITALS: BP 123/77
[2022-05-21] MEDS: LURASIDONE HCL 40 MG TABLET PO SCH (16:24)
[2022-05-21] MEDS: VALPROIC ACID 250 MG/5 ML SOLUTION UDCUP PO SCH (20:48)
[2022-05-21] MEDS: MELATONIN 5 MG TABLET PO SCH (20:48)
[2022-05-22] MEDS: ACETAMINOPHEN 325 MG TABLET PO PRN ×2 (06:16→20:45)
[2022-05-22] MEDS: MULTIVITAMINS WITH MINERALS, THERAPEUTIC TABLET PO SCH (08:46)
[2022-05-22] MEDS: PANTOPRAZOLE SODIUM 40 MG DR TABLET PO SCH (08:46)
[2022-05-22] MEDS: METOPROLOL TARTRATE 25 MG TABLET PO SCH ×2 (08:46→16:11)
[2022-05-22] MEDS: DULoxetine HCL 30 MG CAPSULE PO SCH (08:46)
[2022-05-22] MEDS: AmLODIPine BESYLATE 5 MG TABLET PO SCH ×2 (08:46→16:11)
[2022-05-22] MEDS: OMEGA-3/DHA/EPA/FISH OIL 1,000 MG CAPSULE PO SCH (08:47)
[2022-05-22] MEDS: NICOTINE 7 MG/24 HOUR PATCH TD SCH (08:50)
[2022-05-22] MEDS: DICLOFENAC SODIUM 1% 100 GM GEL [4GM] TP SCH ×2 (09:00→16:45)
[2022-05-22 10:43] VITALS: BP 127/77
[2022-05-22] MEDS: LURASIDONE HCL 40 MG TABLET PO SCH (16:11)
[2022-05-22 16:15] VITALS: BP 130/81
[2022-05-22] MEDS: MELATONIN 5 MG TABLET PO SCH (20:43)
[2022-05-22] MEDS: VALPROIC ACID 250 MG/5 ML SOLUTION UDCUP PO SCH (20:43)
[2022-05-23 08:23] VITALS: BP 107/60
[2022-05-23] MEDS: PANTOPRAZOLE SODIUM 40 MG DR TABLET PO SCH (08:50)
[2022-05-23] MEDS: METOPROLOL TARTRATE 25 MG TABLET PO SCH ×2 (08:50→16:14)
[2022-05-23] MEDS: OMEGA-3/DHA/EPA/FISH OIL 1,000 MG CAPSULE PO SCH (08:50)
[2022-05-23] MEDS: DULoxetine HCL 30 MG CAPSULE PO SCH (08:50)
[2022-05-23] MEDS: AmLODIPine BESYLATE 5 MG TABLET PO SCH ×2 (08:50→16:14)
[2022-05-23] MEDS: MULTIVITAMINS WITH MINERALS, THERAPEUTIC TABLET PO SCH (08:51)
[2022-05-23] MEDS: DICLOFENAC SODIUM 1% 100 GM GEL [4GM] TP SCH ×2 (09:00→16:15)
[2022-05-23] MEDS: NICOTINE 7 MG/24 HOUR PATCH TD SCH (09:11)
[2022-05-23] MEDS: LORazepam 0.5 MG TABLET PO PRN (09:57)
[2022-05-23] MEDS: ACETAMINOPHEN 325 MG TABLET PO PRN (09:57)
[2022-05-23] MEDS: LURASIDONE HCL 20 MG TABLET PO PRN (09:57)
[2022-05-23] MEDS: LURASIDONE HCL 40 MG TABLET PO SCH (16:14)
[2022-05-23 17:30] VITALS: BP 140/82
[2022-05-23] MEDS: MELATONIN 5 MG TABLET PO SCH (20:57)
[2022-05-23] MEDS: VALPROIC ACID 250 MG/5 ML SOLUTION UDCUP PO SCH (20:57)
[2022-05-24 00:50] VITALS: BP 121/76
[2022-05-24] MEDS: ACETAMINOPHEN 325 MG TABLET PO PRN (00:51)
[2022-05-24 09:08] VITALS: BP 106/74
[2022-05-24] MEDS: METOPROLOL TARTRATE 25 MG TABLET PO SCH ×2 (10:01→16:28)
[2022-05-24] MEDS: AmLODIPine BESYLATE 5 MG TABLET PO SCH ×2 (10:01→16:28)
[2022-05-24] MEDS: MULTIVITAMINS WITH MINERALS, THERAPEUTIC TABLET PO SCH (10:01)
[2022-05-24] MEDS: OMEGA-3/DHA/EPA/FISH OIL 1,000 MG CAPSULE PO SCH (10:01)
[2022-05-24] MEDS: DICLOFENAC SODIUM 1% 100 GM GEL [4GM] TP SCH ×2 (10:01→16:29)
[2022-05-24] MEDS: PANTOPRAZOLE SODIUM 40 MG DR TABLET PO SCH (10:01)
[2022-05-24] MEDS: DULoxetine HCL 30 MG CAPSULE PO SCH (10:01)
[2022-05-24] MEDS: NICOTINE 7 MG/24 HOUR PATCH TD SCH (10:02)
[2022-05-24] MEDS: LURASIDONE HCL 20 MG TABLET PO PRN (12:47)
[2022-05-24 16:13] VITALS: BP 108/75
[2022-05-24] MEDS: LURASIDONE HCL 40 MG TABLET PO SCH (16:29)
[2022-05-24] MEDS: VALPROIC ACID 250 MG/5 ML SOLUTION UDCUP PO SCH (20:24)
[2022-05-24] MEDS: MELATONIN 5 MG TABLET PO SCH (20:24)
[2022-05-25] MEDS: LORazepam 0.5 MG TABLET PO PRN (02:23)
[2022-05-25] MEDS: MULTIVITAMINS WITH MINERALS, THERAPEUTIC TABLET PO SCH (08:29)
[2022-05-25] MEDS: DULoxetine HCL 30 MG CAPSULE PO SCH (08:29)
[2022-05-25] MEDS: OMEGA-3/DHA/EPA/FISH OIL 1,000 MG CAPSULE PO SCH (08:29)
[2022-05-25] MEDS: AmLODIPine BESYLATE 5 MG TABLET PO SCH ×2 (08:29→16:18)
[2022-05-25] MEDS: METOPROLOL TARTRATE 25 MG TABLET PO SCH ×2 (08:29→16:18)
[2022-05-25] MEDS: PANTOPRAZOLE SODIUM 40 MG DR TABLET PO SCH (08:29)
[2022-05-25 08:30] VITALS: BP 139/88
[2022-05-25] MEDS: NICOTINE 7 MG/24 HOUR PATCH TD SCH (08:30)
[2022-05-25] MEDS: DICLOFENAC SODIUM 1% 100 GM GEL [4GM] TP SCH ×2 (08:31→16:20)
[2022-05-25 16:16] VITALS: BP 130/75
[2022-05-25] MEDS: LURASIDONE HCL 40 MG TABLET PO SCH (16:18)
[2022-05-25] MEDS: MELATONIN 5 MG TABLET PO SCH (20:26)
[2022-05-25] MEDS: VALPROIC ACID 250 MG/5 ML SOLUTION UDCUP PO SCH (20:26)
[2022-05-26 04:25] VITALS: BP 132/82
[2022-05-26] MEDS: ACETAMINOPHEN 325 MG TABLET PO PRN (04:29)
[2022-05-26 08:00] VITALS: BP 114/73
[2022-05-26] MEDS: DICLOFENAC SODIUM 1% 100 GM GEL [4GM] TP SCH ×2 (08:38→16:35)
[2022-05-26] MEDS: MULTIVITAMINS WITH MINERALS, THERAPEUTIC TABLET PO SCH (08:38)
[2022-05-26] MEDS: METOPROLOL TARTRATE 25 MG TABLET PO SCH ×2 (08:38→16:34)
[2022-05-26] MEDS: PANTOPRAZOLE SODIUM 40 MG DR TABLET PO SCH (08:39)
[2022-05-26] MEDS: DULoxetine HCL 30 MG CAPSULE PO SCH (08:39)
[2022-05-26] MEDS: AmLODIPine BESYLATE 5 MG TABLET PO SCH ×2 (08:39→16:33)
[2022-05-26] MEDS: OMEGA-3/DHA/EPA/FISH OIL 1,000 MG CAPSULE PO SCH (08:39)
[2022-05-26] MEDS: NICOTINE 7 MG/24 HOUR PATCH TD SCH (08:39)
[2022-05-26 16:00] VITALS: BP 118/65
[2022-05-26] MEDS: LURASIDONE HCL 60 MG TABLET PO SCH (16:35)
[2022-05-26] MEDS: VALPROIC ACID 250 MG/5 ML SOLUTION UDCUP PO SCH (20:20)
[2022-05-26] MEDS: MELATONIN 5 MG TABLET PO SCH (20:20)
[2022-05-27 06:16] LABS: COVID AG,FIA SOURCE NASAL SWAB
[2022-05-27 08:00] VITALS: BP 120/79
[2022-05-27] MEDS: DULoxetine HCL 30 MG CAPSULE PO SCH (08:44)
[2022-05-27] MEDS: METOPROLOL TARTRATE 25 MG TABLET PO SCH ×2 (08:44→17:00)
[2022-05-27] MEDS: PANTOPRAZOLE SODIUM 40 MG DR TABLET PO SCH (08:44)
[2022-05-27] MEDS: OMEGA-3/DHA/EPA/FISH OIL 1,000 MG CAPSULE PO SCH (08:44)
[2022-05-27] MEDS: MULTIVITAMINS WITH MINERALS, THERAPEUTIC TABLET PO SCH (08:44)
[2022-05-27] MEDS: AmLODIPine BESYLATE 5 MG TABLET PO SCH ×2 (08:44→17:00)
[2022-05-27] MEDS: NICOTINE 7 MG/24 HOUR PATCH TD SCH (08:45)
[2022-05-27] MEDS: DICLOFENAC SODIUM 1% 100 GM GEL [4GM] TP SCH ×2 (09:00→17:00)
[2022-05-27 16:00] VITALS: BP 104/84
[2022-05-27] MEDS: LURASIDONE HCL 60 MG TABLET PO SCH (17:33)
[2022-05-27] MEDS: VALPROIC ACID 250 MG/5 ML SOLUTION UDCUP PO SCH (21:30)
[2022-05-27] MEDS: MELATONIN 5 MG TABLET PO SCH (21:59)
[2022-05-28] MEDS: MULTIVITAMINS WITH MINERALS, THERAPEUTIC TABLET PO SCH (08:55)
[2022-05-28] MEDS: DULoxetine HCL 30 MG CAPSULE PO SCH (08:56)
[2022-05-28] MEDS: AmLODIPine BESYLATE 5 MG TABLET PO SCH ×2 (08:56→16:37)
[2022-05-28] MEDS: PANTOPRAZOLE SODIUM 40 MG DR TABLET PO SCH (08:56)
[2022-05-28] MEDS: OMEGA-3/DHA/EPA/FISH OIL 1,000 MG CAPSULE PO SCH (08:56)
[2022-05-28] MEDS: METOPROLOL TARTRATE 25 MG TABLET PO SCH ×2 (08:56→16:38)
[2022-05-28 08:58] VITALS: BP 136/75
[2022-05-28] MEDS: DICLOFENAC SODIUM 1% 100 GM GEL [4GM] TP SCH ×2 (09:00→16:38)
[2022-05-28] MEDS: NICOTINE 7 MG/24 HOUR PATCH TD SCH (09:02)
[2022-05-28] MEDS: PALIPERIDONE PALMITATE 117 MG/0.75 ML SYRINGE IM SCH (12:44)
[2022-05-28 16:37] VITALS: BP 109/66
[2022-05-28] MEDS: LURASIDONE HCL 60 MG TABLET PO SCH (16:38)
[2022-05-28] MEDS: MELATONIN 5 MG TABLET PO SCH (20:17)
[2022-05-28] MEDS: VALPROIC ACID 250 MG/5 ML SOLUTION UDCUP PO SCH (20:17)
[2022-05-29 08:00] VITALS: BP 135/83
[2022-05-29] MEDS: DULoxetine HCL 30 MG CAPSULE PO SCH (08:42)
[2022-05-29] MEDS: DICLOFENAC SODIUM 1% 100 GM GEL [4GM] TP SCH ×2 (08:42→16:52)
[2022-05-29] MEDS: MULTIVITAMINS WITH MINERALS, THERAPEUTIC TABLET PO SCH (08:42)
[2022-05-29] MEDS: PANTOPRAZOLE SODIUM 40 MG DR TABLET PO SCH (08:42)
[2022-05-29] MEDS: OMEGA-3/DHA/EPA/FISH OIL 1,000 MG CAPSULE PO SCH (08:43)
[2022-05-29] MEDS: METOPROLOL TARTRATE 25 MG TABLET PO SCH ×2 (08:43→16:33)
[2022-05-29] MEDS: AmLODIPine BESYLATE 5 MG TABLET PO SCH ×2 (08:43→16:33)
[2022-05-29] MEDS: NICOTINE 7 MG/24 HOUR PATCH TD SCH (08:44)
[2022-05-29 16:28] VITALS: BP 110/64
[2022-05-29] MEDS: LURASIDONE HCL 60 MG TABLET PO SCH (16:34)
[2022-05-29] MEDS: VALPROIC ACID 250 MG/5 ML SOLUTION UDCUP PO SCH (20:18)
[2022-05-29] MEDS: MELATONIN 5 MG TABLET PO SCH (20:18)
[2022-05-30 08:56] VITALS: BP 112/68
[2022-05-30] MEDS: PANTOPRAZOLE SODIUM 40 MG DR TABLET PO SCH (08:56)
[2022-05-30] MEDS: METOPROLOL TARTRATE 25 MG TABLET PO SCH ×2 (08:56→16:38)
[2022-05-30] MEDS: OMEGA-3/DHA/EPA/FISH OIL 1,000 MG CAPSULE PO SCH (08:56)
[2022-05-30] MEDS: DULoxetine HCL 30 MG CAPSULE PO SCH (08:56)
[2022-05-30] MEDS: AmLODIPine BESYLATE 5 MG TABLET PO SCH ×2 (08:56→16:37)
[2022-05-30] MEDS: MULTIVITAMINS WITH MINERALS, THERAPEUTIC TABLET PO SCH (08:57)
[2022-05-30] MEDS: DICLOFENAC SODIUM 1% 100 GM GEL [4GM] TP SCH ×2 (09:00→16:37)
[2022-05-30] MEDS: NICOTINE 7 MG/24 HOUR PATCH TD SCH (09:01)
[2022-05-30 16:00] VITALS: BP 130/80
[2022-05-30] MEDS: LURASIDONE HCL 60 MG TABLET PO SCH (16:37)
[2022-05-30] MEDS: VALPROIC ACID 250 MG/5 ML SOLUTION UDCUP PO SCH (20:44)
[2022-05-30] MEDS: MELATONIN 5 MG TABLET PO SCH (20:44)
[2022-05-31] MEDS: PANTOPRAZOLE SODIUM 40 MG DR TABLET PO SCH (08:52)
[2022-05-31] MEDS: NICOTINE 7 MG/24 HOUR PATCH TD SCH (08:52)
[2022-05-31] MEDS: MULTIVITAMINS WITH MINERALS, THERAPEUTIC TABLET PO SCH (08:52)
[2022-05-31] MEDS: OMEGA-3/DHA/EPA/FISH OIL 1,000 MG CAPSULE PO SCH (08:52)
[2022-05-31] MEDS: AmLODIPine BESYLATE 5 MG TABLET PO SCH ×2 (08:52→17:07)
[2022-05-31] MEDS: METOPROLOL TARTRATE 25 MG TABLET PO SCH ×2 (08:52→17:07)
[2022-05-31] MEDS: DULoxetine HCL 30 MG CAPSULE PO SCH (08:52)
[2022-05-31] MEDS: DICLOFENAC SODIUM 1% 100 GM GEL [4GM] TP SCH ×2 (08:53→17:07)
[2022-05-31 09:14] VITALS: BP 133/80
[2022-05-31 16:18] VITALS: BP 113/79
[2022-05-31] MEDS: LURASIDONE HCL 60 MG TABLET PO SCH (17:09)
[2022-05-31] MEDS: VALPROIC ACID 250 MG/5 ML SOLUTION UDCUP PO SCH (20:33)
[2022-05-31] MEDS: MELATONIN 5 MG TABLET PO SCH (20:33)
[2022-05-31 20:43] VITALS: BP 113/79
[2022-06-01] MEDS: DICLOFENAC SODIUM 1% 100 GM GEL [4GM] TP SCH ×2 (08:42→16:55)
[2022-06-01] MEDS: NICOTINE 7 MG/24 HOUR PATCH TD SCH (08:43)
[2022-06-01] MEDS: DULoxetine HCL 30 MG CAPSULE PO SCH (08:43)
[2022-06-01] MEDS: PANTOPRAZOLE SODIUM 40 MG DR TABLET PO SCH (08:43)
[2022-06-01] MEDS: AmLODIPine BESYLATE 5 MG TABLET PO SCH ×2 (08:43→16:10)
[2022-06-01] MEDS: METOPROLOL TARTRATE 25 MG TABLET PO SCH ×2 (08:44→16:10)
[2022-06-01] MEDS: MULTIVITAMINS WITH MINERALS, THERAPEUTIC TABLET PO SCH (08:46)
[2022-06-01] MEDS: OMEGA-3/DHA/EPA/FISH OIL 1,000 MG CAPSULE PO SCH (08:46)
[2022-06-01 09:17] VITALS: BP 142/89
[2022-06-01] MEDS: LURASIDONE HCL 60 MG TABLET PO SCH (16:10)
[2022-06-01 16:24] VITALS: BP 119/81
[2022-06-01] MEDS: VALPROIC ACID 250 MG/5 ML SOLUTION UDCUP PO SCH (20:15)
[2022-06-01] MEDS: MELATONIN 5 MG TABLET PO SCH (20:15)
[2022-06-01 20:47] VITALS: BP 148/96
[2022-06-02 00:06] VITALS: BP 155/88
[2022-06-02 03:02] VITALS: BP 137/92
[2022-06-02] MEDS: ACETAMINOPHEN 325 MG TABLET PO PRN (03:02)
[2022-06-02] MEDS: AmLODIPine BESYLATE 5 MG TABLET PO SCH ×2 (08:21→16:14)
[2022-06-02] MEDS: DULoxetine HCL 60 MG CAPSULE PO SCH (08:21)
[2022-06-02] MEDS: DICLOFENAC SODIUM 1% 100 GM GEL [4GM] TP SCH ×2 (08:21→16:14)
[2022-06-02] MEDS: METOPROLOL TARTRATE 25 MG TABLET PO SCH ×2 (08:21→16:14)
[2022-06-02] MEDS: OMEGA-3/DHA/EPA/FISH OIL 1,000 MG CAPSULE PO SCH (08:21)
[2022-06-02] MEDS: PANTOPRAZOLE SODIUM 40 MG DR TABLET PO SCH (08:21)
[2022-06-02] MEDS: MULTIVITAMINS WITH MINERALS, THERAPEUTIC TABLET PO SCH (08:21)
[2022-06-02] MEDS: NICOTINE 7 MG/24 HOUR PATCH TD SCH (08:22)
[2022-06-02 08:47] VITALS: BP 158/94
[2022-06-02 16:06] VITALS: BP 116/65
[2022-06-02] MEDS: LURASIDONE HCL 60 MG TABLET PO SCH (17:30)
[2022-06-02] MEDS: MELATONIN 5 MG TABLET PO SCH (20:36)
[2022-06-02] MEDS: VALPROIC ACID 250 MG/5 ML SOLUTION UDCUP PO SCH (20:37)
[2022-06-03 07:14] LABS: COVID AG,FIA SOURCE NASAL SWAB
[2022-06-03 08:00] VITALS: BP 136/84
[2022-06-03] MEDS: DICLOFENAC SODIUM 1% 100 GM GEL [4GM] TP SCH ×2 (09:00→16:21)
[2022-06-03] MEDS: MULTIVITAMINS WITH MINERALS, THERAPEUTIC TABLET PO SCH (09:20)
[2022-06-03] MEDS: AmLODIPine BESYLATE 5 MG TABLET PO SCH ×2 (09:21→16:20)
[2022-06-03] MEDS: DULoxetine HCL 60 MG CAPSULE PO SCH (09:21)
[2022-06-03] MEDS: PANTOPRAZOLE SODIUM 40 MG DR TABLET PO SCH (09:21)
[2022-06-03] MEDS: METOPROLOL TARTRATE 25 MG TABLET PO SCH ×2 (09:21→16:20)
[2022-06-03] MEDS: OMEGA-3/DHA/EPA/FISH OIL 1,000 MG CAPSULE PO SCH (09:21)
[2022-06-03] MEDS: NICOTINE 7 MG/24 HOUR PATCH TD SCH (09:30)
[2022-06-03 16:00] VITALS: BP 126/77
[2022-06-03] MEDS: LURASIDONE HCL 60 MG TABLET PO SCH (17:29)
[2022-06-03] MEDS: MELATONIN 5 MG TABLET PO SCH (20:23)
[2022-06-03] MEDS: VALPROIC ACID 250 MG/5 ML SOLUTION UDCUP PO SCH (20:24)
[2022-06-04 08:00] VITALS: BP 134/58
[2022-06-04] MEDS: NICOTINE 7 MG/24 HOUR PATCH TD SCH (09:17)
[2022-06-04] MEDS: DULoxetine HCL 60 MG CAPSULE PO SCH (09:17)
[2022-06-04] MEDS: DICLOFENAC SODIUM 1% 100 GM GEL [4GM] TP SCH ×2 (09:18→16:10)
[2022-06-04] MEDS: OMEGA-3/DHA/EPA/FISH OIL 1,000 MG CAPSULE PO SCH (09:18)
[2022-06-04] MEDS: METOPROLOL TARTRATE 25 MG TABLET PO SCH ×2 (09:18→16:09)
[2022-06-04] MEDS: AmLODIPine BESYLATE 5 MG TABLET PO SCH ×2 (09:18→16:10)
[2022-06-04] MEDS: MULTIVITAMINS WITH MINERALS, THERAPEUTIC TABLET PO SCH (09:18)
[2022-06-04] MEDS: PANTOPRAZOLE SODIUM 40 MG DR TABLET PO SCH (09:18)
[2022-06-04 16:00] VITALS: BP 116/74
[2022-06-04] MEDS: LURASIDONE HCL 60 MG TABLET PO SCH (17:51)
[2022-06-04] MEDS: VALPROIC ACID 250 MG/5 ML SOLUTION UDCUP PO SCH (20:43)
[2022-06-04] MEDS: MELATONIN 5 MG TABLET PO SCH (20:43)
[2022-06-05 03:05] VITALS: BP 120/76
[2022-06-05] MEDS: ACETAMINOPHEN 325 MG TABLET PO PRN (03:17)
[2022-06-05] MEDS: DICLOFENAC SODIUM 1% 100 GM GEL [4GM] TP SCH ×2 (09:00→17:00)
[2022-06-05] MEDS: DULoxetine HCL 60 MG CAPSULE PO SCH (09:10)
[2022-06-05] MEDS: OMEGA-3/DHA/EPA/FISH OIL 1,000 MG CAPSULE PO SCH (09:10)
[2022-06-05] MEDS: PANTOPRAZOLE SODIUM 40 MG DR TABLET PO SCH (09:10)
[2022-06-05] MEDS: AmLODIPine BESYLATE 5 MG TABLET PO SCH ×2 (09:11→16:30)
[2022-06-05] MEDS: MULTIVITAMINS WITH MINERALS, THERAPEUTIC TABLET PO SCH (09:11)
[2022-06-05] MEDS: METOPROLOL TARTRATE 25 MG TABLET PO SCH ×2 (09:11→16:29)
[2022-06-05] MEDS: NICOTINE 7 MG/24 HOUR PATCH TD SCH (09:12)
[2022-06-05 09:14] VITALS: BP 130/81
[2022-06-05 16:00] VITALS: BP 119/69
[2022-06-05] MEDS: LURASIDONE HCL 60 MG TABLET PO SCH (17:18)
[2022-06-05] MEDS: MELATONIN 5 MG TABLET PO SCH (20:21)
[2022-06-05] MEDS: VALPROIC ACID 250 MG/5 ML SOLUTION UDCUP PO SCH (20:21)
[2022-06-05 22:34] LABS: APPEARANCE,URINE CLEAR (CLEAR); BILIRUBIN,URINE NEGATIVE (NEGATIVE); GLUCOSE, URINE (UA) NEGATIVE (NEGATIVE); KETONES,URINE NEGATIVE (NEGATIVE); LEUKOCYTE ESTERASE ,URINE MODERATE (NEGATIVE); NITRATE,URINE NEGATIVE (NEGATIVE); OCCULT BLOOD,URINE NEGATIVE (NEGATIVE); PH,URINE 5.5 (5.0-8.0); PROTEIN,URINE NEGATIVE (NEGATIVE); SPECIFIC GRAVITIY, URINE 1.012 (1.003-1.030); UROBILINOGEN,URINE <=1.0 mg/dL (<=1.0)
[2022-06-05 22:48] LABS: RBC,URINE None Seen /HPF (0-2)
[2022-06-05 22:49] LABS: BACTERIA,URINE Rare /HPF (None Seen)
[2022-06-05 22:50] LABS: SQUAMOUS EPITHELIAL CELL,UR Few /LPF (None Seen)
[2022-06-06 06:25] LABS: BASOPHILS % (AUTO) 0.6 % (0.0-2.0); EOSINOPHILS % (AUTO) 8.8 % (1.0-6.0); HEMATOCRIT 31.6 % (36-46); HEMOGLOBIN 10.7 g/dL (12.0-16.0); LYMPHOCYTES # (AUTO) 2.7 K/uL (1.0-4.8); LYMPHOCYTES % (AUTO) 32.2 % (22.0-44.0); MEAN CORPUSCULAR HEMOGLOBIN 29.1 pg (26.0-34.0); MEAN CORPUSCULAR HGB CONC 33.8 G/dL (31.0-37.0); MEAN CORPUSCULAR VOLUME 86 fL (80-100); MONOCYTES # (AUTO) 0.7 K/uL (0.1-1.0); MONOCYTES % (AUTO) 8.8 % (2.0-9.0); NEUTROPHILS # (AUTO) 4.1 K/uL (1.8-7.7); NEUTROPHILS % (AUTO) 49.6 % (40.0-70.0); PLATELET COUNT (AUTO) 319 K/uL (150-450); RED BLOOD CELL COUNT(AUTO) 3.67 MIL/uL (4.00-5.20); RED CELL DISTRIBUTION WIDTH 15.7 % (11.5-14.5)
[2022-06-06 06:40] LABS: CALCIUM, TOTAL 9.2 mg/dL (8.8-10.5); CHOL/HDL RATIO 3.1 (3.9-5.7); CREATININE 2.22 mg/dL (0.60-1.30); POTASSIUM 4.6 mmol/L (3.5-5.1)
[2022-06-06] MEDS: DICLOFENAC SODIUM 1% 100 GM GEL [4GM] TP SCH ×2 (09:00→17:00)
[2022-06-06] MEDS: LURASIDONE HCL 20 MG TABLET PO PRN (09:30)
[2022-06-06] MEDS: PANTOPRAZOLE SODIUM 40 MG DR TABLET PO SCH (09:30)
[2022-06-06] MEDS: OMEGA-3/DHA/EPA/FISH OIL 1,000 MG CAPSULE PO SCH (09:30)
[2022-06-06] MEDS: MULTIVITAMINS WITH MINERALS, THERAPEUTIC TABLET PO SCH (09:31)
[2022-06-06] MEDS: AmLODIPine BESYLATE 5 MG TABLET PO SCH ×2 (09:31→17:29)
[2022-06-06] MEDS: METOPROLOL TARTRATE 25 MG TABLET PO SCH ×2 (09:31→17:29)
[2022-06-06] MEDS: DULoxetine HCL 60 MG CAPSULE PO SCH (09:31)
[2022-06-06] MEDS: NICOTINE 7 MG/24 HOUR PATCH TD SCH (09:40)
[2022-06-06 10:12] VITALS: BP 129/73
[2022-06-06] MEDS: LORazepam 0.5 MG TABLET PO PRN (10:29)
[2022-06-06 17:01] VITALS: BP 139/100
[2022-06-06] MEDS: LURASIDONE HCL 60 MG TABLET PO SCH (17:30)
[2022-06-06] MEDS: MELATONIN 5 MG TABLET PO SCH (20:27)
[2022-06-06] MEDS: VALPROIC ACID 250 MG/5 ML SOLUTION UDCUP PO SCH (20:27)
[2022-06-07] MEDS: MULTIVITAMINS WITH MINERALS, THERAPEUTIC TABLET PO SCH (07:58)
[2022-06-07] MEDS: METOPROLOL TARTRATE 25 MG TABLET PO SCH ×2 (07:59→16:45)
[2022-06-07] MEDS: AmLODIPine BESYLATE 5 MG TABLET PO SCH ×2 (07:59→16:45)
[2022-06-07] MEDS: PANTOPRAZOLE SODIUM 40 MG DR TABLET PO SCH (07:59)
[2022-06-07] MEDS: DULoxetine HCL 60 MG CAPSULE PO SCH (07:59)
[2022-06-07] MEDS: OMEGA-3/DHA/EPA/FISH OIL 1,000 MG CAPSULE PO SCH (07:59)
[2022-06-07] MEDS: NICOTINE 7 MG/24 HOUR PATCH TD SCH (08:04)
[2022-06-07 09:13] VITALS: BP 110/72
[2022-06-07 16:25] VITALS: BP 115/83
[2022-06-07] MEDS: LURASIDONE HCL 60 MG TABLET PO SCH (16:45)
[2022-06-07] MEDS: VALPROIC ACID 250 MG/5 ML SOLUTION UDCUP PO SCH (20:38)
[2022-06-07] MEDS: MELATONIN 5 MG TABLET PO SCH (20:38)
[2022-06-08 01:50] VITALS: BP 120/81
[2022-06-08] MEDS: ACETAMINOPHEN 325 MG TABLET PO PRN (01:50)
[2022-06-08] MEDS: OMEGA-3/DHA/EPA/FISH OIL 1,000 MG CAPSULE PO SCH (09:05)
[2022-06-08] MEDS: METOPROLOL TARTRATE 25 MG TABLET PO SCH ×2 (09:05→17:00)
[2022-06-08] MEDS: AmLODIPine BESYLATE 5 MG TABLET PO SCH ×2 (09:05→17:00)
[2022-06-08] MEDS: PANTOPRAZOLE SODIUM 40 MG DR TABLET PO SCH (09:05)
[2022-06-08] MEDS: MULTIVITAMINS WITH MINERALS, THERAPEUTIC TABLET PO SCH (09:05)
[2022-06-08] MEDS: DULoxetine HCL 60 MG CAPSULE PO SCH (09:05)
[2022-06-08] MEDS: NICOTINE 7 MG/24 HOUR PATCH TD SCH (09:07)
[2022-06-08 09:41] VITALS: BP 124/76
[2022-06-08] MEDS: LURASIDONE HCL 60 MG TABLET PO SCH (16:16)
[2022-06-08 16:24] VITALS: BP 103/60
[2022-06-08] MEDS: VALPROIC ACID 250 MG/5 ML SOLUTION UDCUP PO SCH (20:06)
[2022-06-08] MEDS: MELATONIN 5 MG TABLET PO SCH (20:06)
[2022-06-09] MEDS: AmLODIPine BESYLATE 5 MG TABLET PO SCH ×2 (08:34→16:31)
[2022-06-09] MEDS: MULTIVITAMINS WITH MINERALS, THERAPEUTIC TABLET PO SCH (08:34)
[2022-06-09] MEDS: OMEGA-3/DHA/EPA/FISH OIL 1,000 MG CAPSULE PO SCH (08:34)
[2022-06-09] MEDS: NICOTINE 7 MG/24 HOUR PATCH TD SCH (08:35)
[2022-06-09] MEDS: PANTOPRAZOLE SODIUM 40 MG DR TABLET PO SCH (08:35)
[2022-06-09] MEDS: METOPROLOL TARTRATE 25 MG TABLET PO SCH ×2 (08:35→16:31)
[2022-06-09] MEDS: DULoxetine HCL 60 MG CAPSULE PO SCH (08:35)
[2022-06-09 09:24] VITALS: BP 124/76
[2022-06-09 16:19] VITALS: BP 117/67
[2022-06-09] MEDS: LURASIDONE HCL 60 MG TABLET PO SCH (16:31)
[2022-06-09] MEDS: VALPROIC ACID 250 MG/5 ML SOLUTION UDCUP PO SCH (20:38)
[2022-06-09] MEDS: MELATONIN 5 MG TABLET PO SCH (20:38)
[2022-06-10 07:06] LABS: COVID AG,FIA SOURCE NASAL SWAB
[2022-06-10 08:07] VITALS: BP 106/58
[2022-06-10] MEDS: NICOTINE 7 MG/24 HOUR PATCH TD SCH (08:45)
[2022-06-10] MEDS: DULoxetine HCL 60 MG CAPSULE PO SCH (08:45)
[2022-06-10] MEDS: PANTOPRAZOLE SODIUM 40 MG DR TABLET PO SCH (08:45)
[2022-06-10] MEDS: OMEGA-3/DHA/EPA/FISH OIL 1,000 MG CAPSULE PO SCH (08:45)
[2022-06-10] MEDS: MULTIVITAMINS WITH MINERALS, THERAPEUTIC TABLET PO SCH (08:46)
[2022-06-10] MEDS: METOPROLOL TARTRATE 25 MG TABLET PO SCH ×2 (08:56→16:52)
[2022-06-10] MEDS: AmLODIPine BESYLATE 5 MG TABLET PO SCH ×2 (08:56→16:51)
[2022-06-10 16:48] VITALS: BP 130/81
[2022-06-10] MEDS: LURASIDONE HCL 60 MG TABLET PO SCH (16:51)
[2022-06-10] MEDS: VALPROIC ACID 250 MG/5 ML SOLUTION UDCUP PO SCH (21:00)
[2022-06-10] MEDS: MELATONIN 5 MG TABLET PO SCH (21:00)
[2022-06-11] MEDS: METOPROLOL TARTRATE 25 MG TABLET PO SCH ×2 (09:07→16:38)
[2022-06-11] MEDS: PANTOPRAZOLE SODIUM 40 MG DR TABLET PO SCH (09:07)
[2022-06-11] MEDS: MULTIVITAMINS WITH MINERALS, THERAPEUTIC TABLET PO SCH (09:07)
[2022-06-11] MEDS: DULoxetine HCL 60 MG CAPSULE PO SCH (09:07)
[2022-06-11] MEDS: AmLODIPine BESYLATE 5 MG TABLET PO SCH ×2 (09:07→16:38)
[2022-06-11] MEDS: OMEGA-3/DHA/EPA/FISH OIL 1,000 MG CAPSULE PO SCH (09:07)
[2022-06-11] MEDS: NICOTINE 7 MG/24 HOUR PATCH TD SCH (09:08)
[2022-06-11 09:17] VITALS: BP 107/65
[2022-06-11 16:25] VITALS: BP 107/50
[2022-06-11] MEDS: LURASIDONE HCL 60 MG TABLET PO SCH (16:39)
[2022-06-11] MEDS: MELATONIN 5 MG TABLET PO SCH (20:49)
[2022-06-11] MEDS: VALPROIC ACID 250 MG/5 ML SOLUTION UDCUP PO SCH (20:50)
[2022-06-12 00:02] VITALS: BP 102/61
[2022-06-12] MEDS: ACETAMINOPHEN 325 MG TABLET PO PRN (00:04)
[2022-06-12] MEDS: PANTOPRAZOLE SODIUM 40 MG DR TABLET PO SCH (08:58)
[2022-06-12] MEDS: OMEGA-3/DHA/EPA/FISH OIL 1,000 MG CAPSULE PO SCH (08:58)
[2022-06-12] MEDS: DULoxetine HCL 60 MG CAPSULE PO SCH (08:58)
[2022-06-12] MEDS: AmLODIPine BESYLATE 5 MG TABLET PO SCH ×2 (08:58→16:15)
[2022-06-12] MEDS: NICOTINE 7 MG/24 HOUR PATCH TD SCH (08:58)
[2022-06-12] MEDS: MULTIVITAMINS WITH MINERALS, THERAPEUTIC TABLET PO SCH (08:58)
[2022-06-12] MEDS: METOPROLOL TARTRATE 25 MG TABLET PO SCH ×2 (08:59→16:15)
[2022-06-12 09:19] VITALS: BP 118/80
[2022-06-12 16:00] VITALS: BP 115/69
[2022-06-12] MEDS: LURASIDONE HCL 60 MG TABLET PO SCH (16:50)
[2022-06-12] MEDS: VALPROIC ACID 250 MG/5 ML SOLUTION UDCUP PO SCH (20:06)
[2022-06-12] MEDS: MELATONIN 5 MG TABLET PO SCH (20:06)
[2022-06-13 01:30] VITALS: BP 118/76
[2022-06-13] MEDS: ACETAMINOPHEN 325 MG TABLET PO PRN ×2 (01:40→08:52)
[2022-06-13 08:48] VITALS: BP 108/64
[2022-06-13] MEDS: OMEGA-3/DHA/EPA/FISH OIL 1,000 MG CAPSULE PO SCH (08:51)
[2022-06-13] MEDS: DULoxetine HCL 60 MG CAPSULE PO SCH (08:52)
[2022-06-13] MEDS: METOPROLOL TARTRATE 25 MG TABLET PO SCH ×2 (08:52→16:50)
[2022-06-13] MEDS: PANTOPRAZOLE SODIUM 40 MG DR TABLET PO SCH (08:52)
[2022-06-13] MEDS: MULTIVITAMINS WITH MINERALS, THERAPEUTIC TABLET PO SCH (08:52)
[2022-06-13] MEDS: AmLODIPine BESYLATE 5 MG TABLET PO SCH ×2 (08:53→16:50)
[2022-06-13] MEDS: NICOTINE 7 MG/24 HOUR PATCH TD SCH (08:54)
[2022-06-13] MEDS: LURASIDONE HCL 60 MG TABLET PO SCH (16:50)
[2022-06-13 16:54] VITALS: BP 108/64
[2022-06-13] MEDS: MELATONIN 5 MG TABLET PO SCH (20:54)
[2022-06-13] MEDS: VALPROIC ACID 250 MG/5 ML SOLUTION UDCUP PO SCH (20:55)
[2022-06-14 08:00] VITALS: BP 148/90
[2022-06-14] MEDS: DULoxetine HCL 60 MG CAPSULE PO SCH (09:21)
[2022-06-14] MEDS: OMEGA-3/DHA/EPA/FISH OIL 1,000 MG CAPSULE PO SCH (09:21)
[2022-06-14] MEDS: NICOTINE 7 MG/24 HOUR PATCH TD SCH (09:21)
[2022-06-14] MEDS: PANTOPRAZOLE SODIUM 40 MG DR TABLET PO SCH (09:21)
[2022-06-14] MEDS: AmLODIPine BESYLATE 5 MG TABLET PO SCH ×2 (09:21→16:04)
[2022-06-14] MEDS: MULTIVITAMINS WITH MINERALS, THERAPEUTIC TABLET PO SCH (09:26)
[2022-06-14] MEDS: METOPROLOL TARTRATE 25 MG TABLET PO SCH ×2 (09:26→16:04)
[2022-06-14 16:00] VITALS: BP 131/74
[2022-06-14] MEDS: LURASIDONE HCL 60 MG TABLET PO SCH (17:47)
[2022-06-14] MEDS: MELATONIN 5 MG TABLET PO SCH (20:32)
[2022-06-14] MEDS: VALPROIC ACID 250 MG/5 ML SOLUTION UDCUP PO SCH (20:36)
[2022-06-14 20:45] VITALS: BP 134/81
[2022-06-15 08:00] VITALS: BP 129/88
[2022-06-15] MEDS: PANTOPRAZOLE SODIUM 40 MG DR TABLET PO SCH (08:43)
[2022-06-15] MEDS: OMEGA-3/DHA/EPA/FISH OIL 1,000 MG CAPSULE PO SCH (08:43)
[2022-06-15] MEDS: DULoxetine HCL 60 MG CAPSULE PO SCH (08:43)
[2022-06-15] MEDS: METOPROLOL TARTRATE 25 MG TABLET PO SCH ×2 (08:43→16:03)
[2022-06-15] MEDS: NICOTINE 7 MG/24 HOUR PATCH TD SCH (08:44)
[2022-06-15] MEDS: MULTIVITAMINS WITH MINERALS, THERAPEUTIC TABLET PO SCH (08:44)
[2022-06-15] MEDS: AmLODIPine BESYLATE 5 MG TABLET PO SCH ×2 (08:44→17:00)
[2022-06-15 16:00] VITALS: BP 115/69
[2022-06-15] MEDS: LURASIDONE HCL 60 MG TABLET PO SCH (19:26)
[2022-06-15] MEDS: MELATONIN 5 MG TABLET PO SCH (21:25)
[2022-06-15] MEDS: VALPROIC ACID 250 MG/5 ML SOLUTION UDCUP PO SCH (21:25)
[2022-06-16 08:35] VITALS: BP 120/80
[2022-06-16] MEDS: NICOTINE 7 MG/24 HOUR PATCH TD SCH (08:40)
[2022-06-16] MEDS: OMEGA-3/DHA/EPA/FISH OIL 1,000 MG CAPSULE PO SCH (08:41)
[2022-06-16] MEDS: MULTIVITAMINS WITH MINERALS, THERAPEUTIC TABLET PO SCH (08:41)
[2022-06-16] MEDS: AmLODIPine BESYLATE 5 MG TABLET PO SCH ×2 (08:41→16:28)
[2022-06-16] MEDS: DULoxetine HCL 60 MG CAPSULE PO SCH (08:41)
[2022-06-16] MEDS: METOPROLOL TARTRATE 25 MG TABLET PO SCH ×2 (08:42→16:28)
[2022-06-16] MEDS: PANTOPRAZOLE SODIUM 40 MG DR TABLET PO SCH (08:43)
[2022-06-16 16:00] VITALS: BP 103/60
[2022-06-16 16:21] VITALS: BP 103/60
[2022-06-16] MEDS: LURASIDONE HCL 60 MG TABLET PO SCH (17:25)
[2022-06-16] MEDS: VALPROIC ACID 250 MG/5 ML SOLUTION UDCUP PO SCH (20:00)
[2022-06-16] MEDS: MELATONIN 5 MG TABLET PO SCH (20:01)
[2022-06-16] MEDS: ACETAMINOPHEN 325 MG TABLET PO PRN (22:49)
[2022-06-17 07:01] LABS: COVID AG,FIA SOURCE NASAL SWAB
[2022-06-17 08:00] VITALS: BP 130/81
[2022-06-17] MEDS: DULoxetine HCL 60 MG CAPSULE PO SCH (08:30)
[2022-06-17] MEDS: NICOTINE 7 MG/24 HOUR PATCH TD SCH (08:30)
[2022-06-17] MEDS: MULTIVITAMINS WITH MINERALS, THERAPEUTIC TABLET PO SCH (08:30)
[2022-06-17] MEDS: METOPROLOL TARTRATE 25 MG TABLET PO SCH ×2 (08:31→16:01)
[2022-06-17] MEDS: PANTOPRAZOLE SODIUM 40 MG DR TABLET PO SCH (08:31)
[2022-06-17] MEDS: AmLODIPine BESYLATE 5 MG TABLET PO SCH ×2 (08:31→17:06)
[2022-06-17] MEDS: OMEGA-3/DHA/EPA/FISH OIL 1,000 MG CAPSULE PO SCH (08:31)
[2022-06-17 16:27] VITALS: BP 116/74
[2022-06-17] MEDS: LURASIDONE HCL 60 MG TABLET PO SCH (17:06)
[2022-06-17] MEDS: VALPROIC ACID 250 MG/5 ML SOLUTION UDCUP PO SCH (20:04)
[2022-06-17] MEDS: MELATONIN 5 MG TABLET PO SCH (20:04)
[2022-06-18 08:07] VITALS: BP 136/83
[2022-06-18] MEDS: PANTOPRAZOLE SODIUM 40 MG DR TABLET PO SCH (08:49)
[2022-06-18] MEDS: OMEGA-3/DHA/EPA/FISH OIL 1,000 MG CAPSULE PO SCH (08:49)
[2022-06-18] MEDS: AmLODIPine BESYLATE 5 MG TABLET PO SCH ×2 (08:49→17:53)
[2022-06-18] MEDS: MULTIVITAMINS WITH MINERALS, THERAPEUTIC TABLET PO SCH (08:49)
[2022-06-18] MEDS: METOPROLOL TARTRATE 25 MG TABLET PO SCH ×2 (08:49→17:53)
[2022-06-18] MEDS: DULoxetine HCL 60 MG CAPSULE PO SCH (08:49)
[2022-06-18] MEDS: NICOTINE 7 MG/24 HOUR PATCH TD SCH (08:51)
[2022-06-18 16:33] VITALS: BP 102/65
[2022-06-18] MEDS: LURASIDONE HCL 60 MG TABLET PO SCH (17:52)
[2022-06-18] MEDS: MELATONIN 5 MG TABLET PO SCH (20:17)
[2022-06-18] MEDS: VALPROIC ACID 250 MG/5 ML SOLUTION UDCUP PO SCH (20:17)
[2022-06-19 07:00] VITALS: BP 120/75
[2022-06-19] MEDS: ACETAMINOPHEN 325 MG TABLET PO PRN (07:06)
[2022-06-19 08:06] VITALS: BP 131/80
[2022-06-19] MEDS: MULTIVITAMINS WITH MINERALS, THERAPEUTIC TABLET PO SCH (09:13)
[2022-06-19] MEDS: PANTOPRAZOLE SODIUM 40 MG DR TABLET PO SCH (09:14)
[2022-06-19] MEDS: DULoxetine HCL 60 MG CAPSULE PO SCH (09:14)
[2022-06-19] MEDS: OMEGA-3/DHA/EPA/FISH OIL 1,000 MG CAPSULE PO SCH (09:14)
[2022-06-19] MEDS: METOPROLOL TARTRATE 25 MG TABLET PO SCH ×2 (09:14→16:29)
[2022-06-19] MEDS: NICOTINE 7 MG/24 HOUR PATCH TD SCH (09:14)
[2022-06-19] MEDS: AmLODIPine BESYLATE 5 MG TABLET PO SCH ×2 (09:14→16:28)
[2022-06-19] MEDS ORDERED: FentaNYL CITRATE PF 100 MCG/2 ML VIAL ONE (12:50)
[2022-06-19 16:00] VITALS: BP 130/73
[2022-06-19] MEDS: LURASIDONE HCL 40 MG TABLET PO SCH (16:31)
[2022-06-19] MEDS: MELATONIN 5 MG TABLET PO SCH (20:44)
[2022-06-19] MEDS: VALPROIC ACID 250 MG/5 ML SOLUTION UDCUP PO SCH (20:44)
[2022-06-20 03:45] VITALS: BP 125/78
[2022-06-20] MEDS: DICLOFENAC SODIUM 1% 100 GM GEL [4GM] TP PRN (03:47)
[2022-06-20] MEDS: ACETAMINOPHEN 325 MG TABLET PO PRN (03:47)
[2022-06-20] MEDS: AmLODIPine BESYLATE 5 MG TABLET PO SCH ×2 (09:28→16:14)
[2022-06-20] MEDS: MULTIVITAMINS WITH MINERALS, THERAPEUTIC TABLET PO SCH (09:28)
[2022-06-20] MEDS: DULoxetine HCL 60 MG CAPSULE PO SCH (09:28)
[2022-06-20] MEDS: PANTOPRAZOLE SODIUM 40 MG DR TABLET PO SCH (09:28)
[2022-06-20] MEDS: OMEGA-3/DHA/EPA/FISH OIL 1,000 MG CAPSULE PO SCH (09:28)
[2022-06-20] MEDS: METOPROLOL TARTRATE 25 MG TABLET PO SCH ×2 (09:28→16:14)
[2022-06-20] MEDS: NICOTINE 7 MG/24 HOUR PATCH TD SCH (09:35)
[2022-06-20 16:29] VITALS: BP 134/82
[2022-06-20] MEDS: LURASIDONE HCL 40 MG TABLET PO SCH (19:04)
[2022-06-20] MEDS: VALPROIC ACID 250 MG/5 ML SOLUTION UDCUP PO SCH (20:01)
[2022-06-20] MEDS: MELATONIN 5 MG TABLET PO SCH (20:01)
[2022-06-21] MEDS: NICOTINE 7 MG/24 HOUR PATCH TD SCH (09:13)
[2022-06-21] MEDS: DULoxetine HCL 60 MG CAPSULE PO SCH (09:13)
[2022-06-21] MEDS: MULTIVITAMINS WITH MINERALS, THERAPEUTIC TABLET PO SCH (09:13)
[2022-06-21] MEDS: OMEGA-3/DHA/EPA/FISH OIL 1,000 MG CAPSULE PO SCH (09:13)
[2022-06-21] MEDS: PANTOPRAZOLE SODIUM 40 MG DR TABLET PO SCH (09:14)
[2022-06-21] MEDS: METOPROLOL TARTRATE 25 MG TABLET PO SCH ×2 (09:14→17:19)
[2022-06-21] MEDS: AmLODIPine BESYLATE 5 MG TABLET PO SCH ×2 (09:14→17:20)
[2022-06-21 09:45] VITALS: BP 124/71
[2022-06-21 17:10] VITALS: BP 129/78
[2022-06-21] MEDS: LURASIDONE HCL 40 MG TABLET PO SCH (17:19)
[2022-06-21] MEDS: VALPROIC ACID 250 MG/5 ML SOLUTION UDCUP PO SCH (21:32)
[2022-06-21] MEDS: MELATONIN 5 MG TABLET PO SCH (21:33)
[2022-06-22] MEDS: OMEGA-3/DHA/EPA/FISH OIL 1,000 MG CAPSULE PO SCH (09:02)
[2022-06-22] MEDS: AmLODIPine BESYLATE 5 MG TABLET PO SCH ×2 (09:02→17:17)
[2022-06-22] MEDS: DULoxetine HCL 60 MG CAPSULE PO SCH (09:02)
[2022-06-22] MEDS: PANTOPRAZOLE SODIUM 40 MG DR TABLET PO SCH (09:02)
[2022-06-22] MEDS: MULTIVITAMINS WITH MINERALS, THERAPEUTIC TABLET PO SCH (09:02)
[2022-06-22] MEDS: NICOTINE 7 MG/24 HOUR PATCH TD SCH (09:02)
[2022-06-22] MEDS: METOPROLOL TARTRATE 25 MG TABLET PO SCH ×2 (09:03→17:17)
[2022-06-22 09:10] VITALS: BP 129/59
[2022-06-22 16:00] VITALS: BP 125/67
[2022-06-22] MEDS: LURASIDONE HCL 40 MG TABLET PO SCH (17:16)
[2022-06-22] MEDS: VALPROIC ACID 250 MG/5 ML SOLUTION UDCUP PO SCH (20:52)
[2022-06-22] MEDS: MELATONIN 5 MG TABLET PO SCH (20:52)
[2022-06-23] MEDS: DULoxetine HCL 60 MG CAPSULE PO SCH (10:04)
[2022-06-23] MEDS: PANTOPRAZOLE SODIUM 40 MG DR TABLET PO SCH (10:04)
[2022-06-23] MEDS: OMEGA-3/DHA/EPA/FISH OIL 1,000 MG CAPSULE PO SCH (10:04)
[2022-06-23] MEDS: MULTIVITAMINS WITH MINERALS, THERAPEUTIC TABLET PO SCH (10:04)
[2022-06-23] MEDS: METOPROLOL TARTRATE 25 MG TABLET PO SCH ×2 (10:04→16:36)
[2022-06-23] MEDS: AmLODIPine BESYLATE 5 MG TABLET PO SCH ×2 (10:04→16:36)
[2022-06-23] MEDS: NICOTINE 7 MG/24 HOUR PATCH TD SCH (10:05)
[2022-06-23 10:11] VITALS: BP 117/63
[2022-06-23 16:12] VITALS: BP 106/97
[2022-06-23] MEDS: LURASIDONE HCL 40 MG TABLET PO SCH (16:36)
[2022-06-23] MEDS: MELATONIN 5 MG TABLET PO SCH (20:50)
[2022-06-23] MEDS: VALPROIC ACID 250 MG/5 ML SOLUTION UDCUP PO SCH (20:50)
[2022-06-24 07:30] LABS: COVID AG,FIA SOURCE NASAL SWAB
[2022-06-24 08:30] VITALS: BP 121/73
[2022-06-24] MEDS: AmLODIPine BESYLATE 5 MG TABLET PO SCH ×2 (08:56→17:15)
[2022-06-24] MEDS: MULTIVITAMINS WITH MINERALS, THERAPEUTIC TABLET PO SCH (08:56)
[2022-06-24] MEDS: DULoxetine HCL 60 MG CAPSULE PO SCH (08:56)
[2022-06-24] MEDS: PANTOPRAZOLE SODIUM 40 MG DR TABLET PO SCH (08:56)
[2022-06-24] MEDS: METOPROLOL TARTRATE 25 MG TABLET PO SCH ×2 (08:57→17:15)
[2022-06-24] MEDS: OMEGA-3/DHA/EPA/FISH OIL 1,000 MG CAPSULE PO SCH (08:57)
[2022-06-24] MEDS: NICOTINE 7 MG/24 HOUR PATCH TD SCH (09:01)
[2022-06-24] MEDS: LURASIDONE HCL 40 MG TABLET PO SCH (17:16)
[2022-06-24] MEDS: VALPROIC ACID 250 MG/5 ML SOLUTION UDCUP PO SCH (20:24)
[2022-06-24] MEDS: MELATONIN 5 MG TABLET PO SCH (20:24)
[2022-06-25] MEDS: DULoxetine HCL 60 MG CAPSULE PO SCH (08:18)
[2022-06-25] MEDS: PANTOPRAZOLE SODIUM 40 MG DR TABLET PO SCH (08:18)
[2022-06-25] MEDS: OMEGA-3/DHA/EPA/FISH OIL 1,000 MG CAPSULE PO SCH (08:18)
[2022-06-25] MEDS: MULTIVITAMINS WITH MINERALS, THERAPEUTIC TABLET PO SCH (08:18)
[2022-06-25] MEDS: METOPROLOL TARTRATE 25 MG TABLET PO SCH ×2 (08:18→16:58)
[2022-06-25] MEDS: AmLODIPine BESYLATE 5 MG TABLET PO SCH ×2 (08:19→16:58)
[2022-06-25] MEDS: NICOTINE 7 MG/24 HOUR PATCH TD SCH (08:24)
[2022-06-25 08:30] VITALS: BP 157/89
[2022-06-25] MEDS: PALIPERIDONE PALMITATE 117 MG/0.75 ML SYRINGE IM SCH (13:12)
[2022-06-25 16:29] VITALS: BP 106/68
[2022-06-25] MEDS: LURASIDONE HCL 40 MG TABLET PO SCH (16:59)
[2022-06-25] MEDS: MELATONIN 5 MG TABLET PO SCH (20:18)
[2022-06-25] MEDS: VALPROIC ACID 250 MG/5 ML SOLUTION UDCUP PO SCH (20:18)
[2022-06-26] MEDS: DULoxetine HCL 60 MG CAPSULE PO SCH (08:06)
[2022-06-26] MEDS: PANTOPRAZOLE SODIUM 40 MG DR TABLET PO SCH (08:06)
[2022-06-26] MEDS: OMEGA-3/DHA/EPA/FISH OIL 1,000 MG CAPSULE PO SCH (08:06)
[2022-06-26] MEDS: AmLODIPine BESYLATE 5 MG TABLET PO SCH ×2 (08:06→16:47)
[2022-06-26] MEDS: MULTIVITAMINS WITH MINERALS, THERAPEUTIC TABLET PO SCH (08:06)
[2022-06-26] MEDS: METOPROLOL TARTRATE 25 MG TABLET PO SCH ×2 (08:06→16:47)
[2022-06-26] MEDS: NICOTINE 7 MG/24 HOUR PATCH TD SCH (08:12)
[2022-06-26 09:23] VITALS: BP 130/77
[2022-06-26] MEDS: LORazepam 0.5 MG TABLET PO PRN (10:33)
[2022-06-26] MEDS: LURASIDONE HCL 20 MG TABLET PO PRN (10:34)
[2022-06-26 16:26] VITALS: BP 111/73
[2022-06-26] MEDS: LURASIDONE HCL 40 MG TABLET PO SCH (16:47)
[2022-06-26] MEDS: MELATONIN 5 MG TABLET PO SCH (20:46)
[2022-06-26] MEDS: VALPROIC ACID 250 MG/5 ML SOLUTION UDCUP PO SCH (20:46)
[2022-06-27] MEDS: AmLODIPine BESYLATE 5 MG TABLET PO SCH ×2 (09:14→16:45)
[2022-06-27] MEDS: PANTOPRAZOLE SODIUM 40 MG DR TABLET PO SCH (09:14)
[2022-06-27] MEDS: DULoxetine HCL 60 MG CAPSULE PO SCH (09:14)
[2022-06-27] MEDS: OMEGA-3/DHA/EPA/FISH OIL 1,000 MG CAPSULE PO SCH (09:14)
[2022-06-27] MEDS: NICOTINE 7 MG/24 HOUR PATCH TD SCH (09:14)
[2022-06-27] MEDS: METOPROLOL TARTRATE 25 MG TABLET PO SCH ×2 (09:15→16:45)
[2022-06-27] MEDS: MULTIVITAMINS WITH MINERALS, THERAPEUTIC TABLET PO SCH (09:15)
[2022-06-27 09:27] VITALS: BP 112/68
[2022-06-27] MEDS: LURASIDONE HCL 40 MG TABLET PO SCH (16:45)
[2022-06-27] MEDS: MELATONIN 5 MG TABLET PO SCH (20:11)
[2022-06-27] MEDS: VALPROIC ACID 250 MG/5 ML SOLUTION UDCUP PO SCH (20:11)
[2022-06-27 20:48] VITALS: BP 120/89
[2022-06-28 08:45] VITALS: BP 127/81
[2022-06-28 09:09] LABS: BASOPHILS % (AUTO) 0.4 % (0.0-2.0); EOSINOPHILS % (AUTO) 4.7 % (1.0-6.0); HEMATOCRIT 33.8 % (36-46); HEMOGLOBIN 11.1 g/dL (12.0-16.0); LYMPHOCYTES # (AUTO) 2.1 K/uL (1.0-4.8); LYMPHOCYTES % (AUTO) 25.2 % (22.0-44.0); MEAN CORPUSCULAR HGB CONC 32.8 G/dL (31.0-37.0); MEAN CORPUSCULAR VOLUME 85 fL (80-100); MONOCYTES # (AUTO) 0.6 K/uL (0.1-1.0); NEUTROPHILS # (AUTO) 5.3 K/uL (1.8-7.7); NEUTROPHILS % (AUTO) 62.7 % (40.0-70.0); PLATELET COUNT (AUTO) 484 K/uL (150-450); RED BLOOD CELL COUNT(AUTO) 3.96 MIL/uL (4.00-5.20); RED CELL DISTRIBUTION WIDTH 15.5 % (11.5-14.5)
[2022-06-28 09:15] LABS: HEMOGLOBIN A1C 5.1 % (3.8-5.6)
[2022-06-28 09:24] LABS: ALBUMIN 3.1 g/dL (3.4-5.0); BILIRUBIN,TOTAL 0.2 mg/dL (0.1-1.0); CALCIUM, TOTAL 9.7 mg/dL (8.8-10.5); CREATININE 2.05 mg/dL (0.60-1.30); POTASSIUM 4.5 mmol/L (3.5-5.1)
[2022-06-28] MEDS: PANTOPRAZOLE SODIUM 40 MG DR TABLET PO SCH (10:09)
[2022-06-28] MEDS: AmLODIPine BESYLATE 5 MG TABLET PO SCH ×2 (10:09→16:27)
[2022-06-28] MEDS: OMEGA-3/DHA/EPA/FISH OIL 1,000 MG CAPSULE PO SCH (10:09)
[2022-06-28] MEDS: DULoxetine HCL 60 MG CAPSULE PO SCH (10:09)
[2022-06-28] MEDS: MULTIVITAMINS WITH MINERALS, THERAPEUTIC TABLET PO SCH (10:09)
[2022-06-28] MEDS: METOPROLOL TARTRATE 25 MG TABLET PO SCH ×2 (10:10→16:27)
[2022-06-28] MEDS: NICOTINE 7 MG/24 HOUR PATCH TD SCH (10:12)
[2022-06-28 16:23] VITALS: BP 109/69
[2022-06-28] MEDS: LURASIDONE HCL 40 MG TABLET PO SCH (16:28)
[2022-06-28] MEDS: VALPROIC ACID 250 MG/5 ML SOLUTION UDCUP PO SCH (20:08)
[2022-06-28] MEDS: MELATONIN 5 MG TABLET PO SCH (20:08)
[2022-06-28] MEDS: DICLOFENAC SODIUM 1% 100 GM GEL [4GM] TP PRN (21:33)
[2022-06-29 08:00] VITALS: BP 152/85
[2022-06-29] MEDS: MULTIVITAMINS WITH MINERALS, THERAPEUTIC TABLET PO SCH (10:02)
[2022-06-29] MEDS: METOPROLOL TARTRATE 25 MG TABLET PO SCH ×2 (10:02→16:52)
[2022-06-29] MEDS: AmLODIPine BESYLATE 5 MG TABLET PO SCH ×2 (10:02→16:51)
[2022-06-29] MEDS: DULoxetine HCL 60 MG CAPSULE PO SCH (10:02)
[2022-06-29] MEDS: OMEGA-3/DHA/EPA/FISH OIL 1,000 MG CAPSULE PO SCH (10:02)
[2022-06-29] MEDS: PANTOPRAZOLE SODIUM 40 MG DR TABLET PO SCH (10:02)
[2022-06-29] MEDS: NICOTINE 7 MG/24 HOUR PATCH TD SCH (10:03)
[2022-06-29 16:20] VITALS: BP 144/77
[2022-06-29] MEDS: LURASIDONE HCL 40 MG TABLET PO SCH (16:51)
[2022-06-29] MEDS: VALPROIC ACID 250 MG/5 ML SOLUTION UDCUP PO SCH (20:49)
[2022-06-29] MEDS: MELATONIN 5 MG TABLET PO SCH (20:49)
[2022-06-30 08:28] VITALS: BP 134/84
[2022-06-30] MEDS: OMEGA-3/DHA/EPA/FISH OIL 1,000 MG CAPSULE PO SCH (08:41)
[2022-06-30] MEDS: AmLODIPine BESYLATE 5 MG TABLET PO SCH ×2 (08:41→16:58)
[2022-06-30] MEDS: MULTIVITAMINS WITH MINERALS, THERAPEUTIC TABLET PO SCH (08:41)
[2022-06-30] MEDS: PANTOPRAZOLE SODIUM 40 MG DR TABLET PO SCH (08:41)
[2022-06-30] MEDS: METOPROLOL TARTRATE 25 MG TABLET PO SCH ×2 (08:41→16:58)
[2022-06-30] MEDS: DULoxetine HCL 60 MG CAPSULE PO SCH (08:41)
[2022-06-30] MEDS: NICOTINE 7 MG/24 HOUR PATCH TD SCH (08:43)
[2022-06-30 16:18] VITALS: BP 138/83
[2022-06-30] MEDS: LURASIDONE HCL 40 MG TABLET PO SCH (17:00)
[2022-06-30] MEDS: VALPROIC ACID 250 MG/5 ML SOLUTION UDCUP PO SCH (20:48)
[2022-06-30] MEDS: MELATONIN 5 MG TABLET PO SCH (20:48)
[2022-07-01 07:06] LABS: COVID AG,FIA SOURCE NASAL SWAB
[2022-07-01] MEDS: MULTIVITAMINS WITH MINERALS, THERAPEUTIC TABLET PO SCH (10:18)
[2022-07-01] MEDS: PANTOPRAZOLE SODIUM 40 MG DR TABLET PO SCH (10:18)
[2022-07-01] MEDS: AmLODIPine BESYLATE 5 MG TABLET PO SCH ×2 (10:18→16:18)
[2022-07-01] MEDS: DULoxetine HCL 60 MG CAPSULE PO SCH (10:18)
[2022-07-01] MEDS: METOPROLOL TARTRATE 25 MG TABLET PO SCH ×2 (10:18→16:18)
[2022-07-01] MEDS: OMEGA-3/DHA/EPA/FISH OIL 1,000 MG CAPSULE PO SCH (10:19)
[2022-07-01] MEDS: NICOTINE 7 MG/24 HOUR PATCH TD SCH (11:24)
[2022-07-01 16:40] VITALS: BP 117/78
[2022-07-01] MEDS: LURASIDONE HCL 40 MG TABLET PO SCH (17:14)
[2022-07-01] MEDS: VALPROIC ACID 250 MG/5 ML SOLUTION UDCUP PO SCH (20:23)
[2022-07-01] MEDS: MELATONIN 5 MG TABLET PO SCH (20:23)
[2022-07-02 08:00] VITALS: BP 133/80
[2022-07-02] MEDS: DULoxetine HCL 60 MG CAPSULE PO SCH (08:50)
[2022-07-02] MEDS: OMEGA-3/DHA/EPA/FISH OIL 1,000 MG CAPSULE PO SCH (08:50)
[2022-07-02] MEDS: AmLODIPine BESYLATE 5 MG TABLET PO SCH ×2 (08:50→16:18)
[2022-07-02] MEDS: MULTIVITAMINS WITH MINERALS, THERAPEUTIC TABLET PO SCH (08:50)
[2022-07-02] MEDS: PANTOPRAZOLE SODIUM 40 MG DR TABLET PO SCH (08:50)
[2022-07-02] MEDS: METOPROLOL TARTRATE 25 MG TABLET PO SCH ×2 (08:50→16:18)
[2022-07-02] MEDS: NICOTINE 7 MG/24 HOUR PATCH TD SCH (08:50)
[2022-07-02 16:14] VITALS: BP 131/87
[2022-07-02] MEDS: LURASIDONE HCL 40 MG TABLET PO SCH (17:18)
[2022-07-02] MEDS: VALPROIC ACID 250 MG/5 ML SOLUTION UDCUP PO SCH (20:14)
[2022-07-02] MEDS: MELATONIN 5 MG TABLET PO SCH (20:14)
[2022-07-03] MEDS: AmLODIPine BESYLATE 5 MG TABLET PO SCH ×2 (08:30→17:14)
[2022-07-03] MEDS: DULoxetine HCL 60 MG CAPSULE PO SCH (08:30)
[2022-07-03] MEDS: METOPROLOL TARTRATE 25 MG TABLET PO SCH ×2 (08:30→17:14)
[2022-07-03] MEDS: PANTOPRAZOLE SODIUM 40 MG DR TABLET PO SCH (08:30)
[2022-07-03] MEDS: LURASIDONE HCL 20 MG TABLET PO PRN (08:30)
[2022-07-03] MEDS: OMEGA-3/DHA/EPA/FISH OIL 1,000 MG CAPSULE PO SCH (08:30)
[2022-07-03] MEDS: MULTIVITAMINS WITH MINERALS, THERAPEUTIC TABLET PO SCH (08:30)
[2022-07-03] MEDS: LORazepam 0.5 MG TABLET PO PRN (08:30)
[2022-07-03] MEDS: NICOTINE 7 MG/24 HOUR PATCH TD SCH (08:37)
[2022-07-03 08:38] VITALS: BP 157/67
[2022-07-03 16:07] VITALS: BP 130/78
[2022-07-03] MEDS: LURASIDONE HCL 40 MG TABLET PO SCH (17:14)
[2022-07-03] MEDS: VALPROIC ACID 250 MG/5 ML SOLUTION UDCUP PO SCH (20:00)
[2022-07-03] MEDS: MELATONIN 5 MG TABLET PO SCH (20:01)
[2022-07-04 08:29] VITALS: BP 139/88
[2022-07-04] MEDS: MULTIVITAMINS WITH MINERALS, THERAPEUTIC TABLET PO SCH (08:45)
[2022-07-04] MEDS: AmLODIPine BESYLATE 5 MG TABLET PO SCH ×2 (08:45→16:56)
[2022-07-04] MEDS: DULoxetine HCL 60 MG CAPSULE PO SCH (08:45)
[2022-07-04] MEDS: METOPROLOL TARTRATE 25 MG TABLET PO SCH ×2 (08:45→16:57)
[2022-07-04] MEDS: OMEGA-3/DHA/EPA/FISH OIL 1,000 MG CAPSULE PO SCH (08:45)
[2022-07-04] MEDS: PANTOPRAZOLE SODIUM 40 MG DR TABLET PO SCH (08:45)
[2022-07-04] MEDS: LURASIDONE HCL 20 MG TABLET PO PRN (08:49)
[2022-07-04] MEDS: LORazepam 0.5 MG TABLET PO PRN (08:49)
[2022-07-04] MEDS: NICOTINE 7 MG/24 HOUR PATCH TD SCH (10:29)
[2022-07-04 16:04] VITALS: BP 117/82
[2022-07-04] MEDS: LURASIDONE HCL 40 MG TABLET PO SCH (16:56)
[2022-07-04] MEDS: VALPROIC ACID 250 MG/5 ML SOLUTION UDCUP PO SCH (21:15)
[2022-07-04] MEDS: MELATONIN 5 MG TABLET PO SCH (21:15)
[2022-07-05 03:12] VITALS: BP 132/84
[2022-07-05] MEDS: ACETAMINOPHEN 325 MG TABLET PO PRN (03:12)
[2022-07-05] MEDS: DICLOFENAC SODIUM 1% 100 GM GEL [4GM] TP PRN (03:13)
[2022-07-05 08:44] VITALS: BP 121/79
[2022-07-05] MEDS: DULoxetine HCL 60 MG CAPSULE PO SCH (09:10)
[2022-07-05] MEDS: PANTOPRAZOLE SODIUM 40 MG DR TABLET PO SCH (09:10)
[2022-07-05] MEDS: OMEGA-3/DHA/EPA/FISH OIL 1,000 MG CAPSULE PO SCH (09:10)
[2022-07-05] MEDS: MULTIVITAMINS WITH MINERALS, THERAPEUTIC TABLET PO SCH (09:11)
[2022-07-05] MEDS: METOPROLOL TARTRATE 25 MG TABLET PO SCH ×2 (09:11→16:26)
[2022-07-05] MEDS: AmLODIPine BESYLATE 5 MG TABLET PO SCH ×2 (09:11→16:26)
[2022-07-05] MEDS: NICOTINE 7 MG/24 HOUR PATCH TD SCH (09:11)
[2022-07-05 16:11] VITALS: BP 130/80
[2022-07-05] MEDS: LURASIDONE HCL 40 MG TABLET PO SCH (16:26)
[2022-07-05] MEDS: VALPROIC ACID 250 MG/5 ML SOLUTION UDCUP PO SCH (20:05)
[2022-07-05] MEDS: MELATONIN 5 MG TABLET PO SCH (20:05)
[2022-07-06 08:36] VITALS: BP 115/76
[2022-07-06] MEDS: OMEGA-3/DHA/EPA/FISH OIL 1,000 MG CAPSULE PO SCH (09:11)
[2022-07-06] MEDS: PANTOPRAZOLE SODIUM 40 MG DR TABLET PO SCH (09:11)
[2022-07-06] MEDS: DULoxetine HCL 60 MG CAPSULE PO SCH (09:11)
[2022-07-06] MEDS: MULTIVITAMINS WITH MINERALS, THERAPEUTIC TABLET PO SCH (09:12)
[2022-07-06] MEDS: METOPROLOL TARTRATE 25 MG TABLET PO SCH ×2 (09:12→16:50)
[2022-07-06] MEDS: NICOTINE 7 MG/24 HOUR PATCH TD SCH (09:12)
[2022-07-06] MEDS: AmLODIPine BESYLATE 5 MG TABLET PO SCH ×2 (09:12→16:50)
[2022-07-06 16:15] VITALS: BP 12/81
[2022-07-06] MEDS: LURASIDONE HCL 40 MG TABLET PO SCH (16:49)
[2022-07-06] MEDS: MELATONIN 5 MG TABLET PO SCH (20:09)
[2022-07-06] MEDS: VALPROIC ACID 250 MG/5 ML SOLUTION UDCUP PO SCH (20:09)
[2022-07-06 20:18] VITALS: BP 125/75
[2022-07-07 08:00] VITALS: BP 138/85
[2022-07-07] MEDS: OMEGA-3/DHA/EPA/FISH OIL 1,000 MG CAPSULE PO SCH (08:56)
[2022-07-07] MEDS: PANTOPRAZOLE SODIUM 40 MG DR TABLET PO SCH (08:56)
[2022-07-07] MEDS: MULTIVITAMINS WITH MINERALS, THERAPEUTIC TABLET PO SCH (08:56)
[2022-07-07] MEDS: METOPROLOL TARTRATE 25 MG TABLET PO SCH ×2 (08:57→16:50)
[2022-07-07] MEDS: DULoxetine HCL 60 MG CAPSULE PO SCH (08:57)
[2022-07-07] MEDS: AmLODIPine BESYLATE 5 MG TABLET PO SCH ×2 (08:57→16:50)
[2022-07-07] MEDS: NICOTINE 7 MG/24 HOUR PATCH TD SCH (08:57)
[2022-07-07] MEDS: KETOROLAC TROMETHAMINE 0.4% 5 ML OPHTHALMIC SOLUTION OU SCH ×2 (09:00→13:00)
[2022-07-07] MEDS: OFLOXACIN 0.3% 5 ML OPHTHALMIC SOLUTION OU SCH ×2 (09:00→13:00)
[2022-07-07 16:09] VITALS: BP 119/77
[2022-07-07] MEDS: LURASIDONE HCL 40 MG TABLET PO SCH (16:51)
[2022-07-07] MEDS: MELATONIN 5 MG TABLET PO SCH (20:28)
[2022-07-07] MEDS: VALPROIC ACID 250 MG/5 ML SOLUTION UDCUP PO SCH (20:28)
[2022-07-08 00:05] VITALS: BP 118/76
[2022-07-08] MEDS: ACETAMINOPHEN 325 MG TABLET PO PRN (00:05)
[2022-07-08 07:49] LABS: COVID AG,FIA SOURCE NASAL SWAB
[2022-07-08] MEDS: DULoxetine HCL 60 MG CAPSULE PO SCH (08:09)
[2022-07-08] MEDS: OMEGA-3/DHA/EPA/FISH OIL 1,000 MG CAPSULE PO SCH (08:09)
[2022-07-08] MEDS: AmLODIPine BESYLATE 5 MG TABLET PO SCH ×2 (08:09→17:05)
[2022-07-08] MEDS: MULTIVITAMINS WITH MINERALS, THERAPEUTIC TABLET PO SCH (08:09)
[2022-07-08] MEDS: PANTOPRAZOLE SODIUM 40 MG DR TABLET PO SCH (08:10)
[2022-07-08] MEDS: METOPROLOL TARTRATE 25 MG TABLET PO SCH ×2 (08:10→17:05)
[2022-07-08] MEDS: NICOTINE 7 MG/24 HOUR PATCH TD SCH (08:11)
[2022-07-08 08:32] VITALS: BP 124/87
[2022-07-08 16:06] VITALS: BP 107/68
[2022-07-08] MEDS: LURASIDONE HCL 40 MG TABLET PO SCH (17:06)
[2022-07-08] MEDS: MELATONIN 5 MG TABLET PO SCH (20:58)
[2022-07-08] MEDS: VALPROIC ACID 250 MG/5 ML SOLUTION UDCUP PO SCH (20:59)
[2022-07-09 08:00] VITALS: BP 123/82
[2022-07-09] MEDS: MULTIVITAMINS WITH MINERALS, THERAPEUTIC TABLET PO SCH (08:16)
[2022-07-09] MEDS: DULoxetine HCL 60 MG CAPSULE PO SCH (08:16)
[2022-07-09] MEDS: OMEGA-3/DHA/EPA/FISH OIL 1,000 MG CAPSULE PO SCH (08:16)
[2022-07-09] MEDS: AmLODIPine BESYLATE 5 MG TABLET PO SCH ×2 (08:17→17:34)
[2022-07-09] MEDS: METOPROLOL TARTRATE 25 MG TABLET PO SCH ×2 (08:17→17:33)
[2022-07-09] MEDS: LORazepam 0.5 MG TABLET PO PRN (08:17)
[2022-07-09] MEDS: PANTOPRAZOLE SODIUM 40 MG DR TABLET PO SCH (08:17)
[2022-07-09] MEDS: LURASIDONE HCL 20 MG TABLET PO PRN (08:19)
[2022-07-09] MEDS: NICOTINE 7 MG/24 HOUR PATCH TD SCH (08:22)
[2022-07-09 16:00] VITALS: BP 114/60
[2022-07-09] MEDS ORDERED: PrednisoLONE ACETATE 1% 5 ML OPHTHALMIC SUSPENSION OU SCH (17:00)
[2022-07-09] MEDS: LURASIDONE HCL 40 MG TABLET PO SCH (17:34)
[2022-07-09] MEDS: MELATONIN 5 MG TABLET PO SCH (21:01)
[2022-07-09] MEDS: VALPROIC ACID 250 MG/5 ML SOLUTION UDCUP PO SCH (21:01)
[2022-07-10 08:30] VITALS: BP 142/79
[2022-07-10] MEDS: OMEGA-3/DHA/EPA/FISH OIL 1,000 MG CAPSULE PO SCH (09:13)
[2022-07-10] MEDS: DULoxetine HCL 60 MG CAPSULE PO SCH (09:13)
[2022-07-10] MEDS: AmLODIPine BESYLATE 5 MG TABLET PO SCH ×2 (09:13→16:25)
[2022-07-10] MEDS: MULTIVITAMINS WITH MINERALS, THERAPEUTIC TABLET PO SCH (09:13)
[2022-07-10] MEDS: PANTOPRAZOLE SODIUM 40 MG DR TABLET PO SCH (09:14)
[2022-07-10] MEDS: METOPROLOL TARTRATE 25 MG TABLET PO SCH ×2 (09:14→16:25)
[2022-07-10] MEDS: NICOTINE 7 MG/24 HOUR PATCH TD SCH (09:15)
[2022-07-10 16:16] VITALS: BP 117/79
[2022-07-10] MEDS: LURASIDONE HCL 40 MG TABLET PO SCH (16:25)
[2022-07-10] MEDS: MELATONIN 5 MG TABLET PO SCH (20:37)
[2022-07-10] MEDS: VALPROIC ACID 250 MG/5 ML SOLUTION UDCUP PO SCH (20:37)
[2022-07-11 08:00] VITALS: BP 116/74
[2022-07-11] MEDS: DULoxetine HCL 60 MG CAPSULE PO SCH (08:43)
[2022-07-11] MEDS: AmLODIPine BESYLATE 5 MG TABLET PO SCH ×2 (08:43→17:46)
[2022-07-11] MEDS: METOPROLOL TARTRATE 25 MG TABLET PO SCH ×2 (08:44→17:46)
[2022-07-11] MEDS: MULTIVITAMINS WITH MINERALS, THERAPEUTIC TABLET PO SCH (08:44)
[2022-07-11] MEDS: OMEGA-3/DHA/EPA/FISH OIL 1,000 MG CAPSULE PO SCH (08:44)
[2022-07-11] MEDS: PANTOPRAZOLE SODIUM 40 MG DR TABLET PO SCH (08:44)
[2022-07-11] MEDS: NICOTINE 7 MG/24 HOUR PATCH TD SCH (08:45)
[2022-07-11 16:11] VITALS: BP 109/76
[2022-07-11 17:45] VITALS: BP 114/80
[2022-07-11] MEDS: LURASIDONE HCL 40 MG TABLET PO SCH (17:46)
[2022-07-11] MEDS: MELATONIN 5 MG TABLET PO SCH (20:17)
[2022-07-11] MEDS: VALPROIC ACID 250 MG/5 ML SOLUTION UDCUP PO SCH (20:17)
[2022-07-11] MEDS: ACETAMINOPHEN 325 MG TABLET PO PRN (23:14)
[2022-07-12 08:00] VITALS: BP 131/87
[2022-07-12] MEDS: PANTOPRAZOLE SODIUM 40 MG DR TABLET PO SCH (09:02)
[2022-07-12] MEDS: MULTIVITAMINS WITH MINERALS, THERAPEUTIC TABLET PO SCH (09:02)
[2022-07-12] MEDS: OMEGA-3/DHA/EPA/FISH OIL 1,000 MG CAPSULE PO SCH (09:02)
[2022-07-12] MEDS: DULoxetine HCL 60 MG CAPSULE PO SCH (09:02)
[2022-07-12] MEDS: METOPROLOL TARTRATE 25 MG TABLET PO SCH ×2 (09:02→16:36)
[2022-07-12] MEDS: AmLODIPine BESYLATE 5 MG TABLET PO SCH ×2 (09:03→16:37)
[2022-07-12] MEDS: NICOTINE 7 MG/24 HOUR PATCH TD SCH (09:03)
[2022-07-12 16:00] VITALS: BP 124/87
[2022-07-12] MEDS: LURASIDONE HCL 40 MG TABLET PO SCH (16:37)
[2022-07-12] MEDS: MELATONIN 5 MG TABLET PO SCH (21:02)
[2022-07-12] MEDS: VALPROIC ACID 250 MG/5 ML SOLUTION UDCUP PO SCH (21:03)
[2022-07-13 08:00] VITALS: BP 149/82
[2022-07-13] MEDS: DULoxetine HCL 60 MG CAPSULE PO SCH (09:05)
[2022-07-13] MEDS: OMEGA-3/DHA/EPA/FISH OIL 1,000 MG CAPSULE PO SCH (09:05)
[2022-07-13] MEDS: PANTOPRAZOLE SODIUM 40 MG DR TABLET PO SCH (09:05)
[2022-07-13] MEDS: AmLODIPine BESYLATE 5 MG TABLET PO SCH ×2 (09:06→17:29)
[2022-07-13] MEDS: METOPROLOL TARTRATE 25 MG TABLET PO SCH ×2 (09:06→17:29)
[2022-07-13] MEDS: MULTIVITAMINS WITH MINERALS, THERAPEUTIC TABLET PO SCH (09:06)
[2022-07-13] MEDS: NICOTINE 7 MG/24 HOUR PATCH TD SCH (09:07)
[2022-07-13 16:00] VITALS: BP 122/77
[2022-07-13] MEDS: LURASIDONE HCL 40 MG TABLET PO SCH (17:29)
[2022-07-13] MEDS: MELATONIN 5 MG TABLET PO SCH (21:27)
[2022-07-13] MEDS: VALPROIC ACID 250 MG/5 ML SOLUTION UDCUP PO SCH (21:28)
[2022-07-14 05:58] LABS: COVID AG,FIA SOURCE NASAL SWAB
[2022-07-14 08:00] VITALS: BP 147/85
[2022-07-14] MEDS: OMEGA-3/DHA/EPA/FISH OIL 1,000 MG CAPSULE PO SCH (08:44)
[2022-07-14] MEDS: AmLODIPine BESYLATE 5 MG TABLET PO SCH ×2 (08:44→16:34)
[2022-07-14] MEDS: PANTOPRAZOLE SODIUM 40 MG DR TABLET PO SCH (08:44)
[2022-07-14] MEDS: MULTIVITAMINS WITH MINERALS, THERAPEUTIC TABLET PO SCH (08:44)
[2022-07-14] MEDS: METOPROLOL TARTRATE 25 MG TABLET PO SCH ×2 (08:44→16:34)
[2022-07-14] MEDS: DULoxetine HCL 60 MG CAPSULE PO SCH (08:45)
[2022-07-14] MEDS: NICOTINE 7 MG/24 HOUR PATCH TD SCH (08:49)
[2022-07-14 16:00] VITALS: BP 148/86
[2022-07-14] MEDS: LURASIDONE HCL 40 MG TABLET PO SCH (16:33)
[2022-07-14] MEDS: MELATONIN 5 MG TABLET PO SCH (20:35)
[2022-07-14] MEDS: VALPROIC ACID 250 MG/5 ML SOLUTION UDCUP PO SCH (20:35)
[2022-07-15] MEDS: OMEGA-3/DHA/EPA/FISH OIL 1,000 MG CAPSULE PO SCH (08:38)
[2022-07-15] MEDS: DULoxetine HCL 60 MG CAPSULE PO SCH (08:38)
[2022-07-15] MEDS: AmLODIPine BESYLATE 5 MG TABLET PO SCH ×2 (08:38→16:16)
[2022-07-15] MEDS: PANTOPRAZOLE SODIUM 40 MG DR TABLET PO SCH (08:38)
[2022-07-15] MEDS: METOPROLOL TARTRATE 25 MG TABLET PO SCH ×2 (08:38→16:16)
[2022-07-15] MEDS: MULTIVITAMINS WITH MINERALS, THERAPEUTIC TABLET PO SCH (08:38)
[2022-07-15] MEDS: NICOTINE 7 MG/24 HOUR PATCH TD SCH (08:45)
[2022-07-15 09:13] VITALS: BP 168/93
[2022-07-15 16:00] VITALS: BP 149/100
[2022-07-15] MEDS: LURASIDONE HCL 40 MG TABLET PO SCH (16:17)
[2022-07-15] MEDS: MELATONIN 5 MG TABLET PO SCH (20:31)
[2022-07-15] MEDS: VALPROIC ACID 250 MG/5 ML SOLUTION UDCUP PO SCH (20:31)
[2022-07-16 08:00] VITALS: BP 127/83
[2022-07-16] MEDS: AmLODIPine BESYLATE 5 MG TABLET PO SCH ×2 (09:17→16:06)
[2022-07-16] MEDS: PANTOPRAZOLE SODIUM 40 MG DR TABLET PO SCH (09:18)
[2022-07-16] MEDS: MULTIVITAMINS WITH MINERALS, THERAPEUTIC TABLET PO SCH (09:18)
[2022-07-16] MEDS: METOPROLOL TARTRATE 25 MG TABLET PO SCH ×2 (09:18→16:06)
[2022-07-16] MEDS: NICOTINE 7 MG/24 HOUR PATCH TD SCH (09:18)
[2022-07-16] MEDS: DULoxetine HCL 60 MG CAPSULE PO SCH (09:18)
[2022-07-16] MEDS: OMEGA-3/DHA/EPA/FISH OIL 1,000 MG CAPSULE PO SCH (09:20)
[2022-07-16 16:41] VITALS: BP 162/87
[2022-07-16] MEDS: LURASIDONE HCL 80 MG TABLET PO SCH (17:00)
[2022-07-16] MEDS: MELATONIN 5 MG TABLET PO SCH (20:52)
[2022-07-16] MEDS: VALPROIC ACID 250 MG/5 ML SOLUTION UDCUP PO SCH (20:53)
[2022-07-17 08:26] VITALS: BP 152/86
[2022-07-17] MEDS: MULTIVITAMINS WITH MINERALS, THERAPEUTIC TABLET PO SCH (08:37)
[2022-07-17] MEDS: DULoxetine HCL 60 MG CAPSULE PO SCH (08:37)
[2022-07-17] MEDS: PANTOPRAZOLE SODIUM 40 MG DR TABLET PO SCH (08:37)
[2022-07-17] MEDS: METOPROLOL TARTRATE 25 MG TABLET PO SCH ×2 (08:37→16:17)
[2022-07-17] MEDS: OMEGA-3/DHA/EPA/FISH OIL 1,000 MG CAPSULE PO SCH (08:37)
[2022-07-17] MEDS: AmLODIPine BESYLATE 5 MG TABLET PO SCH ×2 (08:37→16:16)
[2022-07-17] MEDS: NICOTINE 7 MG/24 HOUR PATCH TD SCH (08:39)
[2022-07-17] MEDS ORDERED: PrednisoLONE ACETATE 1% 5 ML OPHTHALMIC SUSPENSION OU SCH (09:00)
[2022-07-17 16:59] VITALS: BP 131/79
[2022-07-17] MEDS: LURASIDONE HCL 80 MG TABLET PO SCH (17:27)
[2022-07-17] MEDS: MELATONIN 5 MG TABLET PO SCH (20:16)
[2022-07-17] MEDS: VALPROIC ACID 250 MG/5 ML SOLUTION UDCUP PO SCH (20:16)
[2022-07-18 04:20] VITALS: BP 104/63
[2022-07-18] MEDS: ACETAMINOPHEN 325 MG TABLET PO PRN (04:28)
[2022-07-18] MEDS: DULoxetine HCL 60 MG CAPSULE PO SCH (08:11)
[2022-07-18] MEDS: OMEGA-3/DHA/EPA/FISH OIL 1,000 MG CAPSULE PO SCH (08:11)
[2022-07-18] MEDS: METOPROLOL TARTRATE 25 MG TABLET PO SCH ×2 (08:11→17:04)
[2022-07-18] MEDS: AmLODIPine BESYLATE 5 MG TABLET PO SCH ×2 (08:11→17:03)
[2022-07-18] MEDS: PANTOPRAZOLE SODIUM 40 MG DR TABLET PO SCH (08:11)
[2022-07-18] MEDS: NICOTINE 7 MG/24 HOUR PATCH TD SCH (08:11)
[2022-07-18] MEDS: MULTIVITAMINS WITH MINERALS, THERAPEUTIC TABLET PO SCH (08:11)
[2022-07-18 10:01] VITALS: BP 135/85
[2022-07-18 16:36] VITALS: BP 148/85
[2022-07-18] MEDS: LURASIDONE HCL 60 MG TABLET PO SCH (17:07)
[2022-07-18] MEDS: MELATONIN 5 MG TABLET PO SCH (20:47)
[2022-07-18] MEDS: VALPROIC ACID 250 MG/5 ML SOLUTION UDCUP PO SCH (20:48)
[2022-07-18] MEDS: OLANZapine 5 MG RAPDIS TABLET PO SCH (20:51)
[2022-07-19] MEDS: MULTIVITAMINS WITH MINERALS, THERAPEUTIC TABLET PO SCH (08:11)
[2022-07-19] MEDS: DULoxetine HCL 60 MG CAPSULE PO SCH (08:11)
[2022-07-19] MEDS: AmLODIPine BESYLATE 5 MG TABLET PO SCH ×2 (08:11→16:23)
[2022-07-19] MEDS: METOPROLOL TARTRATE 25 MG TABLET PO SCH ×2 (08:11→16:23)
[2022-07-19] MEDS: PANTOPRAZOLE SODIUM 40 MG DR TABLET PO SCH (08:11)
[2022-07-19] MEDS: NICOTINE 7 MG/24 HOUR PATCH TD SCH (08:13)
[2022-07-19] MEDS: OMEGA-3/DHA/EPA/FISH OIL 1,000 MG CAPSULE PO SCH (08:56)
[2022-07-19 09:13] VITALS: BP 129/82
[2022-07-19] MEDS: ACETAMINOPHEN 325 MG TABLET PO PRN (09:13)
[2022-07-19 10:13] VITALS: BP 124/78
[2022-07-19 16:03] VITALS: BP 150/83
[2022-07-19] MEDS: LURASIDONE HCL 60 MG TABLET PO SCH (16:23)
[2022-07-19] MEDS: VALPROIC ACID 250 MG/5 ML SOLUTION UDCUP PO SCH (20:34)
[2022-07-19] MEDS: MELATONIN 5 MG TABLET PO SCH (20:34)
[2022-07-19] MEDS: OLANZapine 5 MG RAPDIS TABLET PO SCH (20:35)
[2022-07-20] MEDS: PANTOPRAZOLE SODIUM 40 MG DR TABLET PO SCH (09:36)
[2022-07-20] MEDS: AmLODIPine BESYLATE 5 MG TABLET PO SCH ×2 (09:36→16:22)
[2022-07-20] MEDS: METOPROLOL TARTRATE 25 MG TABLET PO SCH ×2 (09:36→16:22)
[2022-07-20] MEDS: OMEGA-3/DHA/EPA/FISH OIL 1,000 MG CAPSULE PO SCH (09:36)
[2022-07-20] MEDS: DULoxetine HCL 60 MG CAPSULE PO SCH (09:36)
[2022-07-20] MEDS: MULTIVITAMINS WITH MINERALS, THERAPEUTIC TABLET PO SCH (09:36)
[2022-07-20 09:42] VITALS: BP 130/84
[2022-07-20] MEDS: NICOTINE 7 MG/24 HOUR PATCH TD SCH (11:31)
[2022-07-20 16:21] VITALS: BP 113/78
[2022-07-20 16:22] VITALS: BP 113/78
[2022-07-20] MEDS: LURASIDONE HCL 60 MG TABLET PO SCH (16:22)
[2022-07-20] MEDS: MELATONIN 5 MG TABLET PO SCH (20:30)
[2022-07-20] MEDS: VALPROIC ACID 250 MG/5 ML SOLUTION UDCUP PO SCH (20:30)
[2022-07-20] MEDS: OLANZapine 5 MG RAPDIS TABLET PO SCH (20:41)
[2022-07-21 06:54] LABS: COVID AG,FIA SOURCE NASAL SWAB
[2022-07-21 08:00] VITALS: BP 111/55
[2022-07-21] MEDS: DULoxetine HCL 60 MG CAPSULE PO SCH (08:44)
[2022-07-21] MEDS: AmLODIPine BESYLATE 5 MG TABLET PO SCH ×2 (08:44→17:20)
[2022-07-21] MEDS: METOPROLOL TARTRATE 25 MG TABLET PO SCH ×2 (08:45→17:21)
[2022-07-21] MEDS: MULTIVITAMINS WITH MINERALS, THERAPEUTIC TABLET PO SCH (08:45)
[2022-07-21] MEDS: NICOTINE 7 MG/24 HOUR PATCH TD SCH (08:45)
[2022-07-21] MEDS: OMEGA-3/DHA/EPA/FISH OIL 1,000 MG CAPSULE PO SCH (08:45)
[2022-07-21] MEDS: PANTOPRAZOLE SODIUM 40 MG DR TABLET PO SCH (08:45)
[2022-07-21 16:07] VITALS: BP 120/65
[2022-07-21] MEDS: LURASIDONE HCL 60 MG TABLET PO SCH (17:20)
[2022-07-21] MEDS: VALPROIC ACID 250 MG/5 ML SOLUTION UDCUP PO SCH (20:26)
[2022-07-21] MEDS: OLANZapine 5 MG RAPDIS TABLET PO PRN (20:26)
[2022-07-21] MEDS: MELATONIN 5 MG TABLET PO SCH (20:26)
[2022-07-21] MEDS: OLANZapine 10 MG RAPDIS TABLET PO SCH (20:27)
[2022-07-22 08:00] VITALS: BP 152/86
[2022-07-22] MEDS: MULTIVITAMINS WITH MINERALS, THERAPEUTIC TABLET PO SCH (09:13)
[2022-07-22] MEDS: METOPROLOL TARTRATE 25 MG TABLET PO SCH ×2 (09:13→17:00)
[2022-07-22] MEDS: AmLODIPine BESYLATE 5 MG TABLET PO SCH ×2 (09:13→17:00)
[2022-07-22] MEDS: PANTOPRAZOLE SODIUM 40 MG DR TABLET PO SCH (09:13)
[2022-07-22] MEDS: OMEGA-3/DHA/EPA/FISH OIL 1,000 MG CAPSULE PO SCH (09:13)
[2022-07-22] MEDS: DULoxetine HCL 60 MG CAPSULE PO SCH (09:13)
[2022-07-22] MEDS: NICOTINE 7 MG/24 HOUR PATCH TD SCH (09:50)
[2022-07-22 16:29] VITALS: BP 100/65
[2022-07-22] MEDS ORDERED: LURASIDONE HCL 40 MG TABLET PO SCH (17:30)
[2022-07-22] MEDS: LORazepam 0.5 MG TABLET PO PRN (19:39)
[2022-07-22] MEDS: VALPROIC ACID 250 MG/5 ML SOLUTION UDCUP PO SCH (20:25)
[2022-07-22] MEDS: OLANZapine 10 MG RAPDIS TABLET PO SCH (20:25)
[2022-07-22] MEDS: MELATONIN 5 MG TABLET PO SCH (20:25)
[2022-07-23 08:00] VITALS: BP 114/76
[2022-07-23] MEDS: PANTOPRAZOLE SODIUM 40 MG DR TABLET PO SCH (09:04)
[2022-07-23] MEDS: OMEGA-3/DHA/EPA/FISH OIL 1,000 MG CAPSULE PO SCH (09:04)
[2022-07-23] MEDS: NICOTINE 7 MG/24 HOUR PATCH TD SCH (09:04)
[2022-07-23] MEDS: AmLODIPine BESYLATE 5 MG TABLET PO SCH ×2 (09:04→16:38)
[2022-07-23] MEDS: MULTIVITAMINS WITH MINERALS, THERAPEUTIC TABLET PO SCH (09:04)
[2022-07-23] MEDS: METOPROLOL TARTRATE 25 MG TABLET PO SCH ×2 (09:04→16:39)
[2022-07-23] MEDS: DULoxetine HCL 60 MG CAPSULE PO SCH (09:04)
[2022-07-23] MEDS: OLANZapine 5 MG RAPDIS TABLET PO PRN ×2 (09:07→16:06)
[2022-07-23] MEDS: LORazepam 0.5 MG TABLET PO PRN ×2 (09:07→17:54)
[2022-07-23] MEDS: PALIPERIDONE PALMITATE 117 MG/0.75 ML SYRINGE IM SCH (10:23)
[2022-07-23 16:24] VITALS: BP 127/78
[2022-07-23] MEDS ORDERED: LORazepam 2 MG/ML VIAL IM ONE (16:30)
[2022-07-23] MEDS ORDERED: DiphenhydrAMINE HCL 50 MG/ML VIAL IM ONE (16:30)
[2022-07-23] MEDS ORDERED: HALOPERIDOL LACTATE 5 MG/ML VIAL IM ONE (16:30)
[2022-07-23] MEDS: LURASIDONE HCL 40 MG TABLET PO SCH (17:53)
[2022-07-23] MEDS: VALPROIC ACID 250 MG/5 ML SOLUTION UDCUP PO SCH (21:36)
[2022-07-23] MEDS: OLANZapine 10 MG RAPDIS TABLET PO SCH (21:36)
[2022-07-23] MEDS: MELATONIN 5 MG TABLET PO SCH (21:36)
[2022-07-24] MEDS: DULoxetine HCL 60 MG CAPSULE PO SCH (08:58)
[2022-07-24] MEDS: PANTOPRAZOLE SODIUM 40 MG DR TABLET PO SCH (08:58)
[2022-07-24] MEDS: MULTIVITAMINS WITH MINERALS, THERAPEUTIC TABLET PO SCH (08:59)
[2022-07-24] MEDS: METOPROLOL TARTRATE 25 MG TABLET PO SCH ×2 (08:59→16:20)
[2022-07-24] MEDS: AmLODIPine BESYLATE 5 MG TABLET PO SCH ×2 (08:59→16:20)
[2022-07-24] MEDS: OMEGA-3/DHA/EPA/FISH OIL 1,000 MG CAPSULE PO SCH (08:59)
[2022-07-24] MEDS: NICOTINE 7 MG/24 HOUR PATCH TD SCH (09:00)
[2022-07-24 09:12] VITALS: BP 141/88
[2022-07-24] MEDS: OLANZapine 5 MG RAPDIS TABLET PO PRN (09:25)
[2022-07-24] MEDS: LURASIDONE HCL 40 MG TABLET PO SCH (16:20)
[2022-07-24 16:53] VITALS: BP 127/69
[2022-07-24] MEDS: MELATONIN 5 MG TABLET PO SCH (20:38)
[2022-07-24] MEDS: OLANZapine 10 MG RAPDIS TABLET PO SCH (20:38)
[2022-07-24] MEDS: VALPROIC ACID 250 MG/5 ML SOLUTION UDCUP PO SCH (20:39)
[2022-07-25] MEDS: OLANZapine 5 MG RAPDIS TABLET PO PRN ×2 (02:53→11:18)
[2022-07-25 08:00] VITALS: BP 131/87
[2022-07-25] MEDS: DULoxetine HCL 60 MG CAPSULE PO SCH (08:53)
[2022-07-25] MEDS: MULTIVITAMINS WITH MINERALS, THERAPEUTIC TABLET PO SCH (08:53)
[2022-07-25] MEDS: AmLODIPine BESYLATE 5 MG TABLET PO SCH ×2 (08:53→17:32)
[2022-07-25] MEDS: OMEGA-3/DHA/EPA/FISH OIL 1,000 MG CAPSULE PO SCH (08:53)
[2022-07-25] MEDS: PANTOPRAZOLE SODIUM 40 MG DR TABLET PO SCH (08:53)
[2022-07-25] MEDS: METOPROLOL TARTRATE 25 MG TABLET PO SCH ×2 (08:53→17:32)
[2022-07-25] MEDS: NICOTINE 7 MG/24 HOUR PATCH TD SCH (08:54)
[2022-07-25 11:17] VITALS: BP 128/84
[2022-07-25] MEDS: ACETAMINOPHEN 325 MG TABLET PO PRN (11:17)
[2022-07-25] MEDS: LORazepam 0.5 MG TABLET PO PRN (11:18)
[2022-07-25 12:17] VITALS: BP 126/84
[2022-07-25 16:16] VITALS: BP 154/89
[2022-07-25] MEDS: LURASIDONE HCL 60 MG TABLET PO SCH (17:33)
[2022-07-25] MEDS: DICLOFENAC SODIUM 1% 100 GM GEL [4GM] TP PRN (18:49)
[2022-07-25] MEDS: OLANZapine 10 MG RAPDIS TABLET PO SCH (20:41)
[2022-07-25] MEDS: MELATONIN 5 MG TABLET PO SCH (20:42)
[2022-07-25] MEDS: VALPROIC ACID 250 MG/5 ML SOLUTION UDCUP PO SCH (20:42)
[2022-07-26] MEDS: ACETAMINOPHEN 325 MG TABLET PO PRN ×2 (04:26→22:18)
[2022-07-26] MEDS: PANTOPRAZOLE SODIUM 40 MG DR TABLET PO SCH (08:48)
[2022-07-26] MEDS: OMEGA-3/DHA/EPA/FISH OIL 1,000 MG CAPSULE PO SCH (08:48)
[2022-07-26] MEDS: METOPROLOL TARTRATE 25 MG TABLET PO SCH ×2 (08:48→17:00)
[2022-07-26] MEDS: MULTIVITAMINS WITH MINERALS, THERAPEUTIC TABLET PO SCH (08:48)
[2022-07-26] MEDS: AmLODIPine BESYLATE 5 MG TABLET PO SCH ×2 (08:48→17:00)
[2022-07-26] MEDS: DULoxetine HCL 60 MG CAPSULE PO SCH (08:48)
[2022-07-26] MEDS: NICOTINE 7 MG/24 HOUR PATCH TD SCH (08:49)
[2022-07-26 09:30] VITALS: BP 132/81
[2022-07-26] MEDS: LORazepam 0.5 MG TABLET PO PRN ×2 (09:51→22:17)
[2022-07-26] MEDS: OLANZapine 5 MG RAPDIS TABLET PO PRN (09:51)
[2022-07-26 10:43] LABS: BASOPHILS % (AUTO) 0.6 % (0.0-2.0); EOSINOPHILS % (AUTO) 8.4 % (1.0-6.0); HEMATOCRIT 33.9 % (36-46); HEMOGLOBIN 11.1 g/dL (12.0-16.0); LYMPHOCYTES # (AUTO) 2.2 K/uL (1.0-4.8); LYMPHOCYTES % (AUTO) 28.2 % (22.0-44.0); MEAN CORPUSCULAR HEMOGLOBIN 28.7 pg (26.0-34.0); MEAN CORPUSCULAR HGB CONC 32.9 G/dL (31.0-37.0); MEAN CORPUSCULAR VOLUME 87 fL (80-100); MONOCYTES # (AUTO) 0.8 K/uL (0.1-1.0); NEUTROPHILS # (AUTO) 4.1 K/uL (1.8-7.7); NEUTROPHILS % (AUTO) 52.8 % (40.0-70.0); PLATELET COUNT (AUTO) 354 K/uL (150-450); RED BLOOD CELL COUNT(AUTO) 3.88 MIL/uL (4.00-5.20); RED CELL DISTRIBUTION WIDTH 16.1 % (11.5-14.5)
[2022-07-26 10:57] LABS: BILIRUBIN,TOTAL 0.2 mg/dL (0.1-1.0); CALCIUM, TOTAL 9.1 mg/dL (8.8-10.5); CREATININE 2.05 mg/dL (0.60-1.30); POTASSIUM 4.7 mmol/L (3.5-5.1); TOTAL PROTEIN, SERUM 8.2 g/dL (6.4-8.2)
[2022-07-26 14:00] LABS: APPEARANCE,URINE CLEAR (CLEAR); BILIRUBIN,URINE NEGATIVE (NEGATIVE); GLUCOSE, URINE (UA) NEGATIVE (NEGATIVE); KETONES,URINE NEGATIVE (NEGATIVE); LEUKOCYTE ESTERASE ,URINE MODERATE (NEGATIVE); NITRATE,URINE NEGATIVE (NEGATIVE); OCCULT BLOOD,URINE NEGATIVE (NEGATIVE); PH,URINE 5.5 (5.0-8.0); PROTEIN,URINE NEGATIVE (NEGATIVE); SPECIFIC GRAVITIY, URINE 1.014 (1.003-1.030); UROBILINOGEN,URINE <=1.0 mg/dL (<=1.0)
[2022-07-26 14:18] LABS: RBC,URINE None Seen /HPF (0-2)
[2022-07-26 14:19] LABS: BACTERIA,URINE None Seen /HPF (None Seen); SQUAMOUS EPITHELIAL CELL,UR Few /LPF (None Seen); WBC,URINE 0-2 /HPF (0-5)
[2022-07-26 16:51] VITALS: BP 101/60
[2022-07-26] MEDS: LURASIDONE HCL 60 MG TABLET PO SCH (17:06)
[2022-07-26] MEDS: VALPROIC ACID 250 MG/5 ML SOLUTION UDCUP PO SCH (20:15)
[2022-07-26] MEDS: MELATONIN 5 MG TABLET PO SCH (20:15)
[2022-07-26] MEDS: OLANZapine 10 MG RAPDIS TABLET PO SCH (20:15)
[2022-07-26 22:17] VITALS: BP 120/76
[2022-07-27 08:32] VITALS: BP 139/83
[2022-07-27] MEDS: OMEGA-3/DHA/EPA/FISH OIL 1,000 MG CAPSULE PO SCH (09:39)
[2022-07-27] MEDS: DULoxetine HCL 60 MG CAPSULE PO SCH (09:40)
[2022-07-27] MEDS: AmLODIPine BESYLATE 5 MG TABLET PO SCH ×2 (09:40→16:48)
[2022-07-27] MEDS: PANTOPRAZOLE SODIUM 40 MG DR TABLET PO SCH (09:40)
[2022-07-27] MEDS: MULTIVITAMINS WITH MINERALS, THERAPEUTIC TABLET PO SCH (09:40)
[2022-07-27] MEDS: METOPROLOL TARTRATE 25 MG TABLET PO SCH ×2 (09:43→16:49)
[2022-07-27] MEDS: NICOTINE 7 MG/24 HOUR PATCH TD SCH (10:17)
[2022-07-27 16:17] VITALS: BP 122/78
[2022-07-27] MEDS: LURASIDONE HCL 60 MG TABLET PO SCH (16:49)
[2022-07-27] MEDS: MELATONIN 5 MG TABLET PO SCH (20:06)
[2022-07-27] MEDS: OLANZapine 10 MG RAPDIS TABLET PO SCH (20:06)
[2022-07-27] MEDS: VALPROIC ACID 250 MG/5 ML SOLUTION UDCUP PO SCH (20:06)
[2022-07-28 07:18] LABS: COVID AG,FIA SOURCE NASAL SWAB
[2022-07-28] MEDS: OMEGA-3/DHA/EPA/FISH OIL 1,000 MG CAPSULE PO SCH (08:55)
[2022-07-28] MEDS: DULoxetine HCL 60 MG CAPSULE PO SCH (08:55)
[2022-07-28] MEDS: LORazepam 0.5 MG TABLET PO PRN (08:55)
[2022-07-28] MEDS: METOPROLOL TARTRATE 25 MG TABLET PO SCH ×2 (08:55→16:35)
[2022-07-28] MEDS: AmLODIPine BESYLATE 5 MG TABLET PO SCH ×2 (08:55→16:35)
[2022-07-28] MEDS: PANTOPRAZOLE SODIUM 40 MG DR TABLET PO SCH (08:56)
[2022-07-28] MEDS: MULTIVITAMINS WITH MINERALS, THERAPEUTIC TABLET PO SCH (08:57)
[2022-07-28] MEDS: OLANZapine 5 MG RAPDIS TABLET PO PRN (09:42)
[2022-07-28] MEDS: NICOTINE 7 MG/24 HOUR PATCH TD SCH (09:47)
[2022-07-28 16:00] VITALS: BP 106/58
[2022-07-28] MEDS: LURASIDONE HCL 60 MG TABLET PO SCH (16:36)
[2022-07-28] MEDS: OLANZapine 10 MG RAPDIS TABLET PO SCH (20:46)
[2022-07-28] MEDS: VALPROIC ACID 250 MG/5 ML SOLUTION UDCUP PO SCH (20:46)
[2022-07-28] MEDS: MELATONIN 5 MG TABLET PO SCH (20:46)
[2022-07-29 00:35] VITALS: BP 125/83
[2022-07-29] MEDS: LORazepam 0.5 MG TABLET PO PRN ×2 (00:42→08:05)
[2022-07-29 08:00] VITALS: BP 126/76
[2022-07-29] MEDS: OMEGA-3/DHA/EPA/FISH OIL 1,000 MG CAPSULE PO SCH (08:04)
[2022-07-29] MEDS: DULoxetine HCL 60 MG CAPSULE PO SCH (08:04)
[2022-07-29] MEDS: METOPROLOL TARTRATE 25 MG TABLET PO SCH ×2 (08:05→17:29)
[2022-07-29] MEDS: PANTOPRAZOLE SODIUM 40 MG DR TABLET PO SCH (08:05)
[2022-07-29] MEDS: MULTIVITAMINS WITH MINERALS, THERAPEUTIC TABLET PO SCH (08:05)
[2022-07-29] MEDS: AmLODIPine BESYLATE 5 MG TABLET PO SCH ×2 (08:05→17:29)
[2022-07-29] MEDS: OLANZapine 5 MG RAPDIS TABLET PO PRN (08:05)
[2022-07-29] MEDS: NICOTINE 7 MG/24 HOUR PATCH TD SCH (09:00)
[2022-07-29 16:11] VITALS: BP 112/76
[2022-07-29] MEDS: LURASIDONE HCL 60 MG TABLET PO SCH (17:29)
[2022-07-29] MEDS: VALPROIC ACID 250 MG/5 ML SOLUTION UDCUP PO SCH (21:04)
[2022-07-29] MEDS: MELATONIN 5 MG TABLET PO SCH (21:05)
[2022-07-29] MEDS: OLANZapine 10 MG RAPDIS TABLET PO SCH (21:05)
[2022-07-30] MEDS: MULTIVITAMINS WITH MINERALS, THERAPEUTIC TABLET PO SCH (09:26)
[2022-07-30] MEDS: AmLODIPine BESYLATE 5 MG TABLET PO SCH ×2 (09:26→16:46)
[2022-07-30] MEDS: PANTOPRAZOLE SODIUM 40 MG DR TABLET PO SCH (09:26)
[2022-07-30] MEDS: OMEGA-3/DHA/EPA/FISH OIL 1,000 MG CAPSULE PO SCH (09:26)
[2022-07-30] MEDS: METOPROLOL TARTRATE 25 MG TABLET PO SCH ×2 (09:26→16:47)
[2022-07-30] MEDS: DULoxetine HCL 60 MG CAPSULE PO SCH (09:26)
[2022-07-30] MEDS: NICOTINE 7 MG/24 HOUR PATCH TD SCH (09:27)
[2022-07-30 09:42] VITALS: BP 120/76
[2022-07-30 16:00] VITALS: BP 135/78
[2022-07-30] MEDS: LURASIDONE HCL 60 MG TABLET PO SCH (16:47)
[2022-07-30] MEDS: VALPROIC ACID 250 MG/5 ML SOLUTION UDCUP PO SCH (21:55)
[2022-07-30] MEDS: MELATONIN 5 MG TABLET PO SCH (21:55)
[2022-07-30] MEDS: OLANZapine 10 MG RAPDIS TABLET PO SCH (21:55)
[2022-07-31] MEDS: LORazepam 0.5 MG TABLET PO PRN (02:01)
[2022-07-31 08:30] VITALS: BP 124/68
[2022-07-31] MEDS ORDERED: PrednisoLONE ACETATE 1% 5 ML OPHTHALMIC SUSPENSION OU SCH (09:00)
[2022-07-31] MEDS: AmLODIPine BESYLATE 5 MG TABLET PO SCH ×2 (09:12→16:17)
[2022-07-31] MEDS: MULTIVITAMINS WITH MINERALS, THERAPEUTIC TABLET PO SCH (09:12)
[2022-07-31] MEDS: METOPROLOL TARTRATE 25 MG TABLET PO SCH ×2 (09:12→16:17)
[2022-07-31] MEDS: OMEGA-3/DHA/EPA/FISH OIL 1,000 MG CAPSULE PO SCH (09:12)
[2022-07-31] MEDS: PANTOPRAZOLE SODIUM 40 MG DR TABLET PO SCH (09:12)
[2022-07-31] MEDS: DULoxetine HCL 60 MG CAPSULE PO SCH (09:12)
[2022-07-31] MEDS: NICOTINE 7 MG/24 HOUR PATCH TD SCH (09:15)
[2022-07-31 09:26] VITALS: BP 125/71
[2022-07-31] MEDS: ACETAMINOPHEN 325 MG TABLET PO PRN (09:26)
[2022-07-31 16:09] VITALS: BP 128/79
[2022-07-31] MEDS: VALPROIC ACID 250 MG/5 ML SOLUTION UDCUP PO SCH (21:04)
[2022-07-31] MEDS: OLANZapine 10 MG RAPDIS TABLET PO SCH (21:05)
[2022-07-31] MEDS: MELATONIN 5 MG TABLET PO SCH (21:05)
[2022-08-01 08:30] VITALS: BP 132/91
[2022-08-01] MEDS: METOPROLOL TARTRATE 25 MG TABLET PO SCH ×2 (08:57→16:50)
[2022-08-01] MEDS: PANTOPRAZOLE SODIUM 40 MG DR TABLET PO SCH (08:57)
[2022-08-01] MEDS: AmLODIPine BESYLATE 5 MG TABLET PO SCH ×2 (08:57→16:50)
[2022-08-01] MEDS: DULoxetine HCL 60 MG CAPSULE PO SCH (08:57)
[2022-08-01] MEDS: MULTIVITAMINS WITH MINERALS, THERAPEUTIC TABLET PO SCH (08:57)
[2022-08-01] MEDS: NICOTINE 7 MG/24 HOUR PATCH TD SCH (08:57)
[2022-08-01] MEDS: OMEGA-3/DHA/EPA/FISH OIL 1,000 MG CAPSULE PO SCH (08:57)
[2022-08-01 16:00] VITALS: BP 120/85
[2022-08-01] MEDS: OLANZapine 10 MG RAPDIS TABLET PO SCH (21:11)
[2022-08-01] MEDS: VALPROIC ACID 250 MG/5 ML SOLUTION UDCUP PO SCH (21:11)
[2022-08-01] MEDS: MELATONIN 5 MG TABLET PO SCH (21:11)
[2022-08-02 08:00] VITALS: BP 128/67
[2022-08-02] MEDS: METOPROLOL TARTRATE 25 MG TABLET PO SCH ×2 (08:56→16:29)
[2022-08-02] MEDS: PANTOPRAZOLE SODIUM 40 MG DR TABLET PO SCH (08:56)
[2022-08-02] MEDS: MULTIVITAMINS WITH MINERALS, THERAPEUTIC TABLET PO SCH (08:56)
[2022-08-02] MEDS: DULoxetine HCL 60 MG CAPSULE PO SCH (08:56)
[2022-08-02] MEDS: AmLODIPine BESYLATE 5 MG TABLET PO SCH ×2 (08:56→16:29)
[2022-08-02] MEDS: NICOTINE 7 MG/24 HOUR PATCH TD SCH (08:56)
[2022-08-02] MEDS: OMEGA-3/DHA/EPA/FISH OIL 1,000 MG CAPSULE PO SCH (08:56)
[2022-08-02 16:07] VITALS: BP 100/65
[2022-08-02] MEDS: VALPROIC ACID 250 MG/5 ML SOLUTION UDCUP PO SCH (21:37)
[2022-08-02] MEDS: MELATONIN 5 MG TABLET PO SCH (21:37)
[2022-08-02] MEDS: OLANZapine 10 MG RAPDIS TABLET PO SCH (21:37)
[2022-08-03 08:30] VITALS: BP 111/83
[2022-08-03] MEDS: LORazepam 0.5 MG TABLET PO PRN (08:37)
[2022-08-03] MEDS: DULoxetine HCL 60 MG CAPSULE PO SCH (08:37)
[2022-08-03] MEDS: METOPROLOL TARTRATE 25 MG TABLET PO SCH ×2 (08:37→17:13)
[2022-08-03] MEDS: OMEGA-3/DHA/EPA/FISH OIL 1,000 MG CAPSULE PO SCH (08:37)
[2022-08-03] MEDS: OLANZapine 5 MG RAPDIS TABLET PO PRN (08:37)
[2022-08-03] MEDS: PANTOPRAZOLE SODIUM 40 MG DR TABLET PO SCH (08:37)
[2022-08-03] MEDS: AmLODIPine BESYLATE 5 MG TABLET PO SCH ×2 (08:37→17:13)
[2022-08-03] MEDS: MULTIVITAMINS WITH MINERALS, THERAPEUTIC TABLET PO SCH (08:38)
[2022-08-03] MEDS: NICOTINE 7 MG/24 HOUR PATCH TD SCH (08:45)
[2022-08-03 16:18] VITALS: BP 116/78
[2022-08-03] MEDS: OLANZapine 10 MG RAPDIS TABLET PO SCH (20:19)
[2022-08-03] MEDS: VALPROIC ACID 250 MG/5 ML SOLUTION UDCUP PO SCH (20:19)
[2022-08-03] MEDS: MELATONIN 5 MG TABLET PO SCH (20:19)
[2022-08-04 06:49] LABS: COVID AG,FIA SOURCE NASAL SWAB
[2022-08-04 08:01] VITALS: BP 140/95
[2022-08-04] MEDS: OMEGA-3/DHA/EPA/FISH OIL 1,000 MG CAPSULE PO SCH (09:54)
[2022-08-04] MEDS: DULoxetine HCL 60 MG CAPSULE PO SCH (09:55)
[2022-08-04] MEDS: AmLODIPine BESYLATE 5 MG TABLET PO SCH ×2 (09:55→16:33)
[2022-08-04] MEDS: PANTOPRAZOLE SODIUM 40 MG DR TABLET PO SCH (09:55)
[2022-08-04] MEDS: METOPROLOL TARTRATE 25 MG TABLET PO SCH ×2 (09:55→16:33)
[2022-08-04] MEDS: OLANZapine 5 MG RAPDIS TABLET PO PRN ×2 (09:55→18:21)
[2022-08-04] MEDS: LORazepam 0.5 MG TABLET PO PRN ×2 (09:55→18:21)
[2022-08-04] MEDS: MULTIVITAMINS WITH MINERALS, THERAPEUTIC TABLET PO SCH (09:55)
[2022-08-04] MEDS: NICOTINE 7 MG/24 HOUR PATCH TD SCH (10:06)
[2022-08-04 16:15] VITALS: BP 127/75
[2022-08-04] MEDS: OLANZapine 10 MG RAPDIS TABLET PO SCH (20:02)
[2022-08-04] MEDS: VALPROIC ACID 250 MG/5 ML SOLUTION UDCUP PO SCH (20:02)
[2022-08-04] MEDS: MELATONIN 5 MG TABLET PO SCH (20:02)
[2022-08-05 09:00] VITALS: BP 138/85
[2022-08-05] MEDS: AmLODIPine BESYLATE 5 MG TABLET PO SCH ×2 (09:09→16:45)
[2022-08-05] MEDS: OLANZapine 5 MG RAPDIS TABLET PO PRN ×2 (09:09→16:49)
[2022-08-05] MEDS: DULoxetine HCL 60 MG CAPSULE PO SCH (09:10)
[2022-08-05] MEDS: MULTIVITAMINS WITH MINERALS, THERAPEUTIC TABLET PO SCH (09:10)
[2022-08-05] MEDS: LORazepam 0.5 MG TABLET PO PRN ×2 (09:10→16:49)
[2022-08-05] MEDS: METOPROLOL TARTRATE 25 MG TABLET PO SCH ×2 (09:10→16:45)
[2022-08-05] MEDS: OMEGA-3/DHA/EPA/FISH OIL 1,000 MG CAPSULE PO SCH (09:10)
[2022-08-05] MEDS: PANTOPRAZOLE SODIUM 40 MG DR TABLET PO SCH (09:10)
[2022-08-05] MEDS: NICOTINE 7 MG/24 HOUR PATCH TD SCH (09:21)
[2022-08-05 16:08] VITALS: BP 103/80
[2022-08-05] MEDS: MELATONIN 5 MG TABLET PO SCH (20:38)
[2022-08-05] MEDS: VALPROIC ACID 250 MG/5 ML SOLUTION UDCUP PO SCH (20:38)
[2022-08-05] MEDS: OLANZapine 10 MG RAPDIS TABLET PO SCH (20:39)
[2022-08-06] MEDS: MULTIVITAMINS WITH MINERALS, THERAPEUTIC TABLET PO SCH (08:44)
[2022-08-06] MEDS: DULoxetine HCL 60 MG CAPSULE PO SCH (08:44)
[2022-08-06] MEDS: METOPROLOL TARTRATE 25 MG TABLET PO SCH ×2 (08:44→16:44)
[2022-08-06] MEDS: AmLODIPine BESYLATE 5 MG TABLET PO SCH ×2 (08:45→16:44)
[2022-08-06] MEDS: PANTOPRAZOLE SODIUM 40 MG DR TABLET PO SCH (08:45)
[2022-08-06] MEDS: OMEGA-3/DHA/EPA/FISH OIL 1,000 MG CAPSULE PO SCH (08:45)
[2022-08-06] MEDS: NICOTINE 7 MG/24 HOUR PATCH TD SCH (08:47)
[2022-08-06 09:26] VITALS: BP 128/79
[2022-08-06 16:20] VITALS: BP 103/61
[2022-08-06] MEDS: MELATONIN 5 MG TABLET PO SCH (20:24)
[2022-08-06] MEDS: OLANZapine 10 MG RAPDIS TABLET PO SCH (20:24)
[2022-08-06] MEDS: VALPROIC ACID 250 MG/5 ML SOLUTION UDCUP PO SCH (20:24)
[2022-08-06 22:56] LABS: APPEARANCE,URINE CLEAR (CLEAR); PH,URINE 6.5 (5.0-8.0); SPECIFIC GRAVITIY, URINE 1.015 (1.003-1.030)
[2022-08-06 22:57] LABS: BILIRUBIN,URINE NEGATIVE (NEGATIVE); GLUCOSE, URINE (UA) NEGATIVE (NEGATIVE); KETONES,URINE NEGATIVE (NEGATIVE); OCCULT BLOOD,URINE NEGATIVE (NEGATIVE); PROTEIN,URINE TR mg/dL (NEGATIVE)
[2022-08-06 22:58] LABS: NITRATE,URINE NEGATIVE (NEGATIVE); UROBILINOGEN,URINE <=1.0 mg/dL (<=1.0)
[2022-08-06 22:59] LABS: BACTERIA,URINE Few /HPF (None Seen); LEUKOCYTE ESTERASE ,URINE SMALL (NEGATIVE); RBC,URINE 0-2 /HPF (0-2); SQUAMOUS EPITHELIAL CELL,UR Few /LPF (None Seen)
[2022-08-06 23:56] VITALS: BP 128/66
[2022-08-07] MEDS: DICLOFENAC SODIUM 1% 100 GM GEL [4GM] TP PRN (00:02)
[2022-08-07] MEDS: LORazepam 0.5 MG TABLET PO PRN (00:54)
[2022-08-07] MEDS: OLANZapine 5 MG RAPDIS TABLET PO PRN (00:55)
[2022-08-07 07:27] LABS: CALCIUM, TOTAL 9.7 mg/dL (8.8-10.5); CREATININE 1.83 mg/dL (0.60-1.30); POTASSIUM 5.3 mmol/L (3.5-5.1)
[2022-08-07] MEDS: DULoxetine HCL 60 MG CAPSULE PO SCH (09:00)
[2022-08-07] MEDS: MULTIVITAMINS WITH MINERALS, THERAPEUTIC TABLET PO SCH (09:01)
[2022-08-07] MEDS: OMEGA-3/DHA/EPA/FISH OIL 1,000 MG CAPSULE PO SCH (09:01)
[2022-08-07] MEDS: AmLODIPine BESYLATE 5 MG TABLET PO SCH ×2 (09:01→16:31)
[2022-08-07] MEDS: PANTOPRAZOLE SODIUM 40 MG DR TABLET PO SCH (09:01)
[2022-08-07] MEDS: NICOTINE 7 MG/24 HOUR PATCH TD SCH (09:02)
[2022-08-07] MEDS: METOPROLOL TARTRATE 25 MG TABLET PO SCH ×2 (09:03→16:31)
[2022-08-07 10:14] VITALS: BP 128/87
[2022-08-07] MEDS ORDERED: SODIUM POLYSTYRENE SULFONATE 15 GM/60 ML SUSPENSION BOTTLE PO ONE (11:15)
[2022-08-07 16:00] VITALS: BP 131/88
[2022-08-07] MEDS: VALPROIC ACID 250 MG/5 ML SOLUTION UDCUP PO SCH (20:30)
[2022-08-07] MEDS: OLANZapine 10 MG RAPDIS TABLET PO SCH (20:30)
[2022-08-07] MEDS: MELATONIN 5 MG TABLET PO SCH (20:30)
[2022-08-08 07:18] LABS: CREATININE 1.71 mg/dL (0.60-1.30); POTASSIUM 5.2 mmol/L (3.5-5.1)
[2022-08-08] MEDS: OMEGA-3/DHA/EPA/FISH OIL 1,000 MG CAPSULE PO SCH (08:38)
[2022-08-08] MEDS: METOPROLOL TARTRATE 25 MG TABLET PO SCH ×2 (08:38→16:09)
[2022-08-08] MEDS: AmLODIPine BESYLATE 5 MG TABLET PO SCH ×2 (08:38→16:09)
[2022-08-08] MEDS: DULoxetine HCL 60 MG CAPSULE PO SCH (08:39)
[2022-08-08] MEDS: PANTOPRAZOLE SODIUM 40 MG DR TABLET PO SCH (08:39)
[2022-08-08] MEDS: MULTIVITAMINS WITH MINERALS, THERAPEUTIC TABLET PO SCH (08:39)
[2022-08-08] MEDS: NICOTINE 7 MG/24 HOUR PATCH TD SCH (08:39)
[2022-08-08 10:03] VITALS: BP 155/91
[2022-08-08] MEDS ORDERED: SODIUM POLYSTYRENE SULFONATE 15 GM/60 ML SUSPENSION BOTTLE PO ONE (12:15)
[2022-08-08 16:51] VITALS: BP 133/77
[2022-08-08] MEDS: OLANZapine 10 MG RAPDIS TABLET PO SCH (20:51)
[2022-08-08] MEDS: MELATONIN 5 MG TABLET PO SCH (20:51)
[2022-08-08] MEDS: VALPROIC ACID 250 MG/5 ML SOLUTION UDCUP PO SCH (20:51)
[2022-08-09 08:42] LABS: CREATININE 2.06 mg/dL (0.60-1.30); POTASSIUM 4.5 mmol/L (3.5-5.1)
[2022-08-09] MEDS: MULTIVITAMINS WITH MINERALS, THERAPEUTIC TABLET PO SCH (10:07)
[2022-08-09] MEDS: DULoxetine HCL 60 MG CAPSULE PO SCH (10:07)
[2022-08-09] MEDS: PANTOPRAZOLE SODIUM 40 MG DR TABLET PO SCH (10:07)
[2022-08-09] MEDS: OMEGA-3/DHA/EPA/FISH OIL 1,000 MG CAPSULE PO SCH (10:07)
[2022-08-09] MEDS: AmLODIPine BESYLATE 5 MG TABLET PO SCH ×2 (10:08→16:52)
[2022-08-09] MEDS: METOPROLOL TARTRATE 25 MG TABLET PO SCH ×2 (10:08→16:52)
[2022-08-09] MEDS: NICOTINE 7 MG/24 HOUR PATCH TD SCH (10:08)
[2022-08-09 18:02] VITALS: BP 139/89
[2022-08-09] MEDS: VALPROIC ACID 250 MG/5 ML SOLUTION UDCUP PO SCH (21:22)
[2022-08-09] MEDS: MELATONIN 5 MG TABLET PO SCH (21:22)
[2022-08-09] MEDS: OLANZapine 10 MG RAPDIS TABLET PO SCH (21:22)
[2022-08-10] MEDS: OLANZapine 5 MG RAPDIS TABLET PO PRN (03:25)
[2022-08-10] MEDS: LORazepam 0.5 MG TABLET PO PRN (03:25)
[2022-08-10 08:55] VITALS: BP 160/88
[2022-08-10] MEDS: AmLODIPine BESYLATE 5 MG TABLET PO SCH ×2 (09:06→16:35)
[2022-08-10] MEDS: OMEGA-3/DHA/EPA/FISH OIL 1,000 MG CAPSULE PO SCH (09:06)
[2022-08-10] MEDS: PANTOPRAZOLE SODIUM 40 MG DR TABLET PO SCH (09:06)
[2022-08-10] MEDS: METOPROLOL TARTRATE 25 MG TABLET PO SCH ×2 (09:06→16:35)
[2022-08-10] MEDS: MULTIVITAMINS WITH MINERALS, THERAPEUTIC TABLET PO SCH (09:06)
[2022-08-10] MEDS: DULoxetine HCL 60 MG CAPSULE PO SCH (09:06)
[2022-08-10] MEDS: NICOTINE 7 MG/24 HOUR PATCH TD SCH (09:07)
[2022-08-10 16:43] VITALS: BP 175/87
[2022-08-10] MEDS: OLANZapine 10 MG RAPDIS TABLET PO SCH (20:52)
[2022-08-10] MEDS: MELATONIN 5 MG TABLET PO SCH (20:52)
[2022-08-10] MEDS: VALPROIC ACID 250 MG/5 ML SOLUTION UDCUP PO SCH (20:53)
[2022-08-11 07:51] LABS: COVID AG,FIA SOURCE NASAL SWAB
[2022-08-11] MEDS: AmLODIPine BESYLATE 5 MG TABLET PO SCH ×2 (09:00→18:14)
[2022-08-11] MEDS: PANTOPRAZOLE SODIUM 40 MG DR TABLET PO SCH (09:00)
[2022-08-11] MEDS: METOPROLOL TARTRATE 25 MG TABLET PO SCH ×2 (09:00→18:15)
[2022-08-11] MEDS: OFLOXACIN 0.3% 5 ML OPHTHALMIC SOLUTION OS SCH ×4 (09:00→20:45)
[2022-08-11] MEDS: MULTIVITAMINS WITH MINERALS, THERAPEUTIC TABLET PO SCH (09:00)
[2022-08-11] MEDS: OMEGA-3/DHA/EPA/FISH OIL 1,000 MG CAPSULE PO SCH (09:00)
[2022-08-11] MEDS: NICOTINE 7 MG/24 HOUR PATCH TD SCH (09:00)
[2022-08-11] MEDS ORDERED: KETOROLAC TROMETHAMINE 0.5% 5 ML OPHTHALMIC SOLUTION OS SCH (09:00)
[2022-08-11] MEDS: DULoxetine HCL 60 MG CAPSULE PO SCH (09:00)
[2022-08-11] MEDS: KETOROLAC TROMETHAMINE 0.4% 5 ML OPHTHALMIC SOLUTION OS SCH ×4 (09:05→20:44)
[2022-08-11] MEDS: LORazepam 0.5 MG TABLET PO PRN (13:28)
[2022-08-11] MEDS: OLANZapine 5 MG RAPDIS TABLET PO PRN (13:28)
[2022-08-11 16:43] VITALS: BP 105/67
[2022-08-11] MEDS: MELATONIN 5 MG TABLET PO SCH (20:43)
[2022-08-11] MEDS: VALPROIC ACID 250 MG/5 ML SOLUTION UDCUP PO SCH (20:44)
[2022-08-11] MEDS: OLANZapine 10 MG RAPDIS TABLET PO SCH (20:44)
[2022-08-12 08:00] VITALS: BP 150/87
[2022-08-12] MEDS: OMEGA-3/DHA/EPA/FISH OIL 1,000 MG CAPSULE PO SCH (08:21)
[2022-08-12] MEDS: PANTOPRAZOLE SODIUM 40 MG DR TABLET PO SCH (08:21)
[2022-08-12] MEDS: LORazepam 0.5 MG TABLET PO PRN ×2 (08:21→22:29)
[2022-08-12] MEDS: METOPROLOL TARTRATE 25 MG TABLET PO SCH ×2 (08:21→16:52)
[2022-08-12] MEDS: DULoxetine HCL 60 MG CAPSULE PO SCH (08:21)
[2022-08-12] MEDS: AmLODIPine BESYLATE 5 MG TABLET PO SCH ×2 (08:21→16:52)
[2022-08-12] MEDS: OLANZapine 5 MG RAPDIS TABLET PO PRN (08:21)
[2022-08-12] MEDS: MULTIVITAMINS WITH MINERALS, THERAPEUTIC TABLET PO SCH (08:21)
[2022-08-12] MEDS: OFLOXACIN 0.3% 5 ML OPHTHALMIC SOLUTION OS SCH ×4 (08:22→21:23)
[2022-08-12] MEDS: KETOROLAC TROMETHAMINE 0.4% 5 ML OPHTHALMIC SOLUTION OS SCH ×4 (08:27→21:22)
[2022-08-12] MEDS: NICOTINE 7 MG/24 HOUR PATCH TD SCH (11:21)
[2022-08-12 16:47] VITALS: BP 117/78
[2022-08-12] MEDS: VALPROIC ACID 250 MG/5 ML SOLUTION UDCUP PO SCH (21:24)
[2022-08-12] MEDS: OLANZapine 10 MG RAPDIS TABLET PO SCH (21:24)
[2022-08-12] MEDS: MELATONIN 5 MG TABLET PO SCH (21:24)
[2022-08-12 21:34] VITALS: BP 137/77
[2022-08-12 22:29] VITALS: BP 133/79
[2022-08-12 23:09] VITALS: BP 148/79
[2022-08-12] MEDS: ACETAMINOPHEN 325 MG TABLET PO PRN (23:14)
[2022-08-13 08:00] VITALS: BP 119/78
[2022-08-13] MEDS: NICOTINE 7 MG/24 HOUR PATCH TD SCH (08:57)
[2022-08-13] MEDS: AmLODIPine BESYLATE 5 MG TABLET PO SCH ×2 (08:58→16:24)
[2022-08-13] MEDS: DULoxetine HCL 60 MG CAPSULE PO SCH (08:58)
[2022-08-13] MEDS: MULTIVITAMINS WITH MINERALS, THERAPEUTIC TABLET PO SCH (08:58)
[2022-08-13] MEDS: OMEGA-3/DHA/EPA/FISH OIL 1,000 MG CAPSULE PO SCH (08:58)
[2022-08-13] MEDS: KETOROLAC TROMETHAMINE 0.4% 5 ML OPHTHALMIC SOLUTION OS SCH ×4 (08:59→21:18)
[2022-08-13] MEDS: OFLOXACIN 0.3% 5 ML OPHTHALMIC SOLUTION OS SCH ×4 (08:59→21:11)
[2022-08-13] MEDS: PANTOPRAZOLE SODIUM 40 MG DR TABLET PO SCH (08:59)
[2022-08-13] MEDS: METOPROLOL TARTRATE 25 MG TABLET PO SCH ×2 (08:59→16:24)
[2022-08-13] MEDS: PrednisoLONE ACETATE 1% 5 ML OPHTHALMIC SUSPENSION OS SCH ×4 (11:12→21:25)
[2022-08-13 16:00] VITALS: BP 134/86
[2022-08-13] MEDS: VALPROIC ACID 250 MG/5 ML SOLUTION UDCUP PO SCH (21:09)
[2022-08-13] MEDS: MELATONIN 5 MG TABLET PO SCH (21:10)
[2022-08-13] MEDS: OLANZapine 10 MG RAPDIS TABLET PO SCH (21:11)
[2022-08-14] MEDS: ZOLPIDEM TARTRATE 10 MG TABLET PO PRN (01:15)
[2022-08-14] MEDS: OMEGA-3/DHA/EPA/FISH OIL 1,000 MG CAPSULE PO SCH (09:31)
[2022-08-14] MEDS: DULoxetine HCL 60 MG CAPSULE PO SCH (09:32)
[2022-08-14] MEDS: AmLODIPine BESYLATE 5 MG TABLET PO SCH ×2 (09:32→17:06)
[2022-08-14] MEDS: METOPROLOL TARTRATE 25 MG TABLET PO SCH ×2 (09:32→17:06)
[2022-08-14] MEDS: MULTIVITAMINS WITH MINERALS, THERAPEUTIC TABLET PO SCH (09:32)
[2022-08-14] MEDS: NICOTINE 7 MG/24 HOUR PATCH TD SCH (09:33)
[2022-08-14] MEDS: OFLOXACIN 0.3% 5 ML OPHTHALMIC SOLUTION OS SCH ×4 (09:34→21:15)
[2022-08-14] MEDS: KETOROLAC TROMETHAMINE 0.4% 5 ML OPHTHALMIC SOLUTION OS SCH ×4 (09:34→21:28)
[2022-08-14] MEDS: PrednisoLONE ACETATE 1% 5 ML OPHTHALMIC SUSPENSION OS SCH ×4 (09:35→21:33)
[2022-08-14 09:36] VITALS: BP 144/91
[2022-08-14] MEDS: OLANZapine 5 MG RAPDIS TABLET PO PRN (09:36)
[2022-08-14] MEDS: ACETAMINOPHEN 325 MG TABLET PO PRN (09:36)
[2022-08-14] MEDS: LORazepam 0.5 MG TABLET PO PRN (09:36)
[2022-08-14] MEDS: PANTOPRAZOLE SODIUM 40 MG DR TABLET PO SCH (09:43)
[2022-08-14 10:36] VITALS: BP 138/86
[2022-08-14 16:00] VITALS: BP 148/92
[2022-08-14] MEDS: MELATONIN 5 MG TABLET PO SCH (21:15)
[2022-08-14] MEDS: VALPROIC ACID 250 MG/5 ML SOLUTION UDCUP PO SCH (21:16)
[2022-08-14] MEDS: OLANZapine 10 MG RAPDIS TABLET PO SCH (21:17)
[2022-08-15 09:00] VITALS: BP 128/98
[2022-08-15] MEDS: MULTIVITAMINS WITH MINERALS, THERAPEUTIC TABLET PO SCH (10:53)
[2022-08-15] MEDS: PANTOPRAZOLE SODIUM 40 MG DR TABLET PO SCH (10:53)
[2022-08-15] MEDS: OMEGA-3/DHA/EPA/FISH OIL 1,000 MG CAPSULE PO SCH (10:53)
[2022-08-15] MEDS: AmLODIPine BESYLATE 5 MG TABLET PO SCH ×2 (10:53→16:53)
[2022-08-15] MEDS: METOPROLOL TARTRATE 25 MG TABLET PO SCH ×2 (10:54→16:53)
[2022-08-15] MEDS: NICOTINE 7 MG/24 HOUR PATCH TD SCH (10:55)
[2022-08-15] MEDS: DULoxetine HCL 60 MG CAPSULE PO SCH (10:57)
[2022-08-15] MEDS: MELATONIN 5 MG TABLET PO SCH (20:10)
[2022-08-15] MEDS: VALPROIC ACID 250 MG/5 ML SOLUTION UDCUP PO SCH (20:15)
[2022-08-15] MEDS: OLANZapine 10 MG RAPDIS TABLET PO SCH (20:15)
[2022-08-15] MEDS: ZOLPIDEM TARTRATE 10 MG TABLET PO PRN (20:58)
[2022-08-16] MEDS: AmLODIPine BESYLATE 5 MG TABLET PO SCH ×2 (08:53→16:12)
[2022-08-16] MEDS: DULoxetine HCL 60 MG CAPSULE PO SCH (08:53)
[2022-08-16] MEDS: PANTOPRAZOLE SODIUM 40 MG DR TABLET PO SCH (08:53)
[2022-08-16] MEDS: METOPROLOL TARTRATE 25 MG TABLET PO SCH ×2 (08:53→16:12)
[2022-08-16] MEDS: MULTIVITAMINS WITH MINERALS, THERAPEUTIC TABLET PO SCH (08:53)
[2022-08-16] MEDS: OMEGA-3/DHA/EPA/FISH OIL 1,000 MG CAPSULE PO SCH (08:53)
[2022-08-16] MEDS: NICOTINE 7 MG/24 HOUR PATCH TD SCH (08:57)
[2022-08-16 11:04] VITALS: BP 145/86
[2022-08-16] MEDS: OLANZapine 5 MG RAPDIS TABLET PO PRN (12:31)
[2022-08-16 16:52] VITALS: BP 127/74
[2022-08-16] MEDS: LORazepam 0.5 MG TABLET PO PRN (17:45)
[2022-08-16] MEDS: MELATONIN 5 MG TABLET PO SCH (20:56)
[2022-08-16] MEDS: OLANZapine 10 MG RAPDIS TABLET PO SCH (20:56)
[2022-08-16] MEDS: VALPROIC ACID 250 MG/5 ML SOLUTION UDCUP PO SCH (20:56)
[2022-08-16] MEDS: ZOLPIDEM TARTRATE 10 MG TABLET PO PRN (21:40)
[2022-08-17 08:57] VITALS: BP 108/63
[2022-08-17] MEDS: DULoxetine HCL 60 MG CAPSULE PO SCH (10:28)
[2022-08-17] MEDS: MULTIVITAMINS WITH MINERALS, THERAPEUTIC TABLET PO SCH (10:28)
[2022-08-17] MEDS: OMEGA-3/DHA/EPA/FISH OIL 1,000 MG CAPSULE PO SCH (10:28)
[2022-08-17] MEDS: PANTOPRAZOLE SODIUM 40 MG DR TABLET PO SCH (10:28)
[2022-08-17] MEDS: AmLODIPine BESYLATE 5 MG TABLET PO SCH ×2 (10:28→17:13)
[2022-08-17] MEDS: OLANZapine 5 MG RAPDIS TABLET PO PRN (10:28)
[2022-08-17] MEDS: METOPROLOL TARTRATE 25 MG TABLET PO SCH ×2 (10:29→17:13)
[2022-08-17] MEDS: NICOTINE 7 MG/24 HOUR PATCH TD SCH (10:46)
[2022-08-17 17:10] VITALS: BP 114/78
[2022-08-17] MEDS: VALPROIC ACID 250 MG/5 ML SOLUTION UDCUP PO SCH (20:32)
[2022-08-17] MEDS: OLANZapine 10 MG RAPDIS TABLET PO SCH (20:33)
[2022-08-17] MEDS: MELATONIN 5 MG TABLET PO SCH (20:33)
[2022-08-18 03:07] LABS: COVID AG,FIA SOURCE NASAL SWAB
[2022-08-18] MEDS: OMEGA-3/DHA/EPA/FISH OIL 1,000 MG CAPSULE PO SCH (08:32)
[2022-08-18] MEDS: DICLOFENAC SODIUM 1% 100 GM GEL [4GM] TP PRN (08:32)
[2022-08-18] MEDS: NICOTINE 7 MG/24 HOUR PATCH TD SCH (08:32)
[2022-08-18] MEDS: DULoxetine HCL 60 MG CAPSULE PO SCH (08:33)
[2022-08-18] MEDS: AmLODIPine BESYLATE 5 MG TABLET PO SCH ×2 (08:33→16:51)
[2022-08-18] MEDS: PANTOPRAZOLE SODIUM 40 MG DR TABLET PO SCH (08:33)
[2022-08-18] MEDS: MULTIVITAMINS WITH MINERALS, THERAPEUTIC TABLET PO SCH (08:33)
[2022-08-18] MEDS: METOPROLOL TARTRATE 25 MG TABLET PO SCH ×2 (08:33→16:51)
[2022-08-18 08:58] VITALS: BP 162/98
[2022-08-18 16:26] VITALS: BP 131/81
[2022-08-18] MEDS: LORazepam 0.5 MG TABLET PO PRN (16:51)
[2022-08-18] MEDS: OLANZapine 5 MG RAPDIS TABLET PO PRN (17:34)
[2022-08-18] MEDS: VALPROIC ACID 250 MG/5 ML SOLUTION UDCUP PO SCH (21:16)
[2022-08-18] MEDS: MELATONIN 5 MG TABLET PO SCH (21:17)
[2022-08-18] MEDS: OLANZapine 10 MG RAPDIS TABLET PO SCH (21:17)
[2022-08-19 08:00] VITALS: BP 105/67
[2022-08-19] MEDS: AmLODIPine BESYLATE 5 MG TABLET PO SCH ×2 (10:06→17:35)
[2022-08-19] MEDS: OLANZapine 5 MG RAPDIS TABLET PO PRN (10:06)
[2022-08-19] MEDS: DULoxetine HCL 60 MG CAPSULE PO SCH (10:06)
[2022-08-19] MEDS: METOPROLOL TARTRATE 25 MG TABLET PO SCH ×2 (10:06→17:35)
[2022-08-19] MEDS: MULTIVITAMINS WITH MINERALS, THERAPEUTIC TABLET PO SCH (10:06)
[2022-08-19] MEDS: LORazepam 0.5 MG TABLET PO PRN (10:06)
[2022-08-19] MEDS: PANTOPRAZOLE SODIUM 40 MG DR TABLET PO SCH (10:06)
[2022-08-19] MEDS: OMEGA-3/DHA/EPA/FISH OIL 1,000 MG CAPSULE PO SCH (10:07)
[2022-08-19] MEDS: NICOTINE 7 MG/24 HOUR PATCH TD SCH (10:11)
[2022-08-19 16:18] VITALS: BP 126/72
[2022-08-19] MEDS: VALPROIC ACID 250 MG/5 ML SOLUTION UDCUP PO SCH (20:36)
[2022-08-19] MEDS: MELATONIN 5 MG TABLET PO SCH (20:37)
[2022-08-19] MEDS: OLANZapine 10 MG RAPDIS TABLET PO SCH (20:37)
[2022-08-20] MEDS: NICOTINE 7 MG/24 HOUR PATCH TD SCH (09:00)
[2022-08-20] MEDS: METOPROLOL TARTRATE 25 MG TABLET PO SCH ×2 (09:00→16:08)
[2022-08-20] MEDS ORDERED: PrednisoLONE ACETATE 1% 5 ML OPHTHALMIC SUSPENSION OS SCH (09:00)
[2022-08-20 09:23] VITALS: BP 103/67
[2022-08-20] MEDS: OMEGA-3/DHA/EPA/FISH OIL 1,000 MG CAPSULE PO SCH (09:40)
[2022-08-20] MEDS: MULTIVITAMINS WITH MINERALS, THERAPEUTIC TABLET PO SCH (09:40)
[2022-08-20] MEDS: AmLODIPine BESYLATE 5 MG TABLET PO SCH ×2 (09:41→16:08)
[2022-08-20] MEDS: DULoxetine HCL 60 MG CAPSULE PO SCH (09:41)
[2022-08-20] MEDS: PANTOPRAZOLE SODIUM 40 MG DR TABLET PO SCH (09:41)
[2022-08-20] MEDS: PALIPERIDONE PALMITATE 117 MG/0.75 ML SYRINGE IM SCH (12:41)
[2022-08-20 16:02] VITALS: BP 128/81
[2022-08-20] MEDS: VALPROIC ACID 250 MG/5 ML SOLUTION UDCUP PO SCH (21:46)
[2022-08-20] MEDS: OLANZapine 10 MG RAPDIS TABLET PO SCH (21:46)
[2022-08-20] MEDS: MELATONIN 5 MG TABLET PO SCH (21:46)
[2022-08-20] MEDS: ZOLPIDEM TARTRATE 10 MG TABLET PO PRN (23:08)
[2022-08-21 08:37] VITALS: BP 129/79
[2022-08-21] MEDS: NICOTINE 7 MG/24 HOUR PATCH TD SCH (09:00)
[2022-08-21] MEDS: DULoxetine HCL 60 MG CAPSULE PO SCH (09:17)
[2022-08-21] MEDS: METOPROLOL TARTRATE 25 MG TABLET PO SCH ×2 (09:17→16:24)
[2022-08-21] MEDS: OMEGA-3/DHA/EPA/FISH OIL 1,000 MG CAPSULE PO SCH (09:17)
[2022-08-21] MEDS: AmLODIPine BESYLATE 5 MG TABLET PO SCH ×2 (09:17→16:24)
[2022-08-21] MEDS: PANTOPRAZOLE SODIUM 40 MG DR TABLET PO SCH (09:18)
[2022-08-21] MEDS: MULTIVITAMINS WITH MINERALS, THERAPEUTIC TABLET PO SCH (09:18)
[2022-08-21 16:22] VITALS: BP 130/81
[2022-08-21] MEDS: MELATONIN 5 MG TABLET PO SCH (20:17)
[2022-08-21] MEDS: OLANZapine 10 MG RAPDIS TABLET PO SCH (20:17)
[2022-08-21] MEDS: VALPROIC ACID 250 MG/5 ML SOLUTION UDCUP PO SCH (20:17)
[2022-08-22 08:00] VITALS: BP 152/83
[2022-08-22] MEDS: OMEGA-3/DHA/EPA/FISH OIL 1,000 MG CAPSULE PO SCH (08:41)
[2022-08-22] MEDS: MULTIVITAMINS WITH MINERALS, THERAPEUTIC TABLET PO SCH (08:41)
[2022-08-22] MEDS: PANTOPRAZOLE SODIUM 40 MG DR TABLET PO SCH (08:41)
[2022-08-22] MEDS: DULoxetine HCL 60 MG CAPSULE PO SCH (08:41)
[2022-08-22] MEDS: METOPROLOL TARTRATE 25 MG TABLET PO SCH ×2 (08:41→16:25)
[2022-08-22] MEDS: AmLODIPine BESYLATE 5 MG TABLET PO SCH ×2 (08:41→16:25)
[2022-08-22] MEDS: NICOTINE 7 MG/24 HOUR PATCH TD SCH (09:00)
[2022-08-22 16:39] VITALS: BP 145/97
[2022-08-22] MEDS: LORazepam 0.5 MG TABLET PO PRN (20:33)
[2022-08-22] MEDS: OLANZapine 10 MG RAPDIS TABLET PO SCH (20:34)
[2022-08-22] MEDS: VALPROIC ACID 250 MG/5 ML SOLUTION UDCUP PO SCH (20:34)
[2022-08-22] MEDS: MELATONIN 5 MG TABLET PO SCH (20:34)
[2022-08-22 20:36] VITALS: BP 141/77
[2022-08-23] MEDS: PANTOPRAZOLE SODIUM 40 MG DR TABLET PO SCH (08:52)
[2022-08-23] MEDS: DULoxetine HCL 60 MG CAPSULE PO SCH (08:52)
[2022-08-23] MEDS: OMEGA-3/DHA/EPA/FISH OIL 1,000 MG CAPSULE PO SCH (08:52)
[2022-08-23] MEDS: LORazepam 0.5 MG TABLET PO PRN (08:52)
[2022-08-23] MEDS: MULTIVITAMINS WITH MINERALS, THERAPEUTIC TABLET PO SCH (08:52)
[2022-08-23] MEDS: NICOTINE 7 MG/24 HOUR PATCH TD SCH (08:59)
[2022-08-23 09:00] VITALS: BP 110/72
[2022-08-23] MEDS: AmLODIPine BESYLATE 5 MG TABLET PO SCH ×2 (10:11→16:32)
[2022-08-23] MEDS: METOPROLOL TARTRATE 25 MG TABLET PO SCH ×2 (10:12→16:32)
[2022-08-23 16:09] VITALS: BP 117/73
[2022-08-23] MEDS: VALPROIC ACID 250 MG/5 ML SOLUTION UDCUP PO SCH (20:37)
[2022-08-23] MEDS: MELATONIN 5 MG TABLET PO SCH (20:37)
[2022-08-23] MEDS: OLANZapine 10 MG RAPDIS TABLET PO SCH (20:37)
[2022-08-24 08:14] VITALS: BP 136/77
[2022-08-24 08:30] VITALS: BP 136/77
[2022-08-24] MEDS: PANTOPRAZOLE SODIUM 40 MG DR TABLET PO SCH (08:36)
[2022-08-24] MEDS: OMEGA-3/DHA/EPA/FISH OIL 1,000 MG CAPSULE PO SCH (08:36)
[2022-08-24] MEDS: AmLODIPine BESYLATE 5 MG TABLET PO SCH ×2 (08:36→16:18)
[2022-08-24] MEDS: METOPROLOL TARTRATE 25 MG TABLET PO SCH ×2 (08:36→16:18)
[2022-08-24] MEDS: DULoxetine HCL 60 MG CAPSULE PO SCH (08:36)
[2022-08-24] MEDS: OLANZapine 5 MG RAPDIS TABLET PO PRN ×2 (08:36→23:58)
[2022-08-24] MEDS: MULTIVITAMINS WITH MINERALS, THERAPEUTIC TABLET PO SCH (08:36)
[2022-08-24] MEDS: ACETAMINOPHEN 325 MG TABLET PO PRN (08:36)
[2022-08-24] MEDS: LORazepam 0.5 MG TABLET PO PRN (08:37)
[2022-08-24] MEDS: NICOTINE 7 MG/24 HOUR PATCH TD SCH (09:10)
[2022-08-24 16:14] VITALS: BP 133/79
[2022-08-24] MEDS: OLANZapine 10 MG RAPDIS TABLET PO SCH (20:47)
[2022-08-24] MEDS: VALPROIC ACID 250 MG/5 ML SOLUTION UDCUP PO SCH (20:47)
[2022-08-24] MEDS: MELATONIN 5 MG TABLET PO SCH (20:47)
[2022-08-24] MEDS: ZOLPIDEM TARTRATE 10 MG TABLET PO PRN (23:58)
[2022-08-25 06:41] LABS: COVID AG,FIA SOURCE NASAL SWAB
[2022-08-25] MEDS: NICOTINE 7 MG/24 HOUR PATCH TD SCH (09:00)
[2022-08-25] MEDS: LORazepam 0.5 MG TABLET PO PRN ×2 (09:06→16:38)
[2022-08-25] MEDS: OLANZapine 5 MG RAPDIS TABLET PO PRN (09:06)
[2022-08-25] MEDS: METOPROLOL TARTRATE 25 MG TABLET PO SCH ×2 (09:07→16:38)
[2022-08-25] MEDS: OMEGA-3/DHA/EPA/FISH OIL 1,000 MG CAPSULE PO SCH (09:07)
[2022-08-25] MEDS: PANTOPRAZOLE SODIUM 40 MG DR TABLET PO SCH (09:07)
[2022-08-25] MEDS: DULoxetine HCL 60 MG CAPSULE PO SCH (09:07)
[2022-08-25] MEDS: AmLODIPine BESYLATE 5 MG TABLET PO SCH ×2 (09:07→16:38)
[2022-08-25] MEDS: MULTIVITAMINS WITH MINERALS, THERAPEUTIC TABLET PO SCH (09:07)
[2022-08-25 09:29] VITALS: BP 133/70
[2022-08-25 16:34] VITALS: BP 138/79
[2022-08-25] MEDS: VALPROIC ACID 250 MG/5 ML SOLUTION UDCUP PO SCH (20:03)
[2022-08-25] MEDS: MELATONIN 5 MG TABLET PO SCH (20:03)
[2022-08-25] MEDS: OLANZapine 10 MG RAPDIS TABLET PO SCH (20:03)
[2022-08-26 07:57] LABS: BASOPHILS % (AUTO) 0.5 % (0.0-2.0); EOSINOPHILS % (AUTO) 6.3 % (1.0-6.0); HEMATOCRIT 33.2 % (36-46); HEMOGLOBIN 10.8 g/dL (12.0-16.0); LYMPHOCYTES # (AUTO) 2.1 K/uL (1.0-4.8); LYMPHOCYTES % (AUTO) 28.6 % (22.0-44.0); MEAN CORPUSCULAR HEMOGLOBIN 29.1 pg (26.0-34.0); MEAN CORPUSCULAR HGB CONC 32.5 G/dL (31.0-37.0); MEAN CORPUSCULAR VOLUME 90 fL (80-100); MONOCYTES # (AUTO) 0.8 K/uL (0.1-1.0); MONOCYTES % (AUTO) 10.8 % (2.0-9.0); NEUTROPHILS % (AUTO) 53.8 % (40.0-70.0); PLATELET COUNT (AUTO) 392 K/uL (150-450); RED CELL DISTRIBUTION WIDTH 16.1 % (11.5-14.5)
[2022-08-26 08:00] VITALS: BP 112/68
[2022-08-26] MEDS: OMEGA-3/DHA/EPA/FISH OIL 1,000 MG CAPSULE PO SCH (08:03)
[2022-08-26] MEDS: DULoxetine HCL 60 MG CAPSULE PO SCH (08:03)
[2022-08-26] MEDS: OLANZapine 5 MG RAPDIS TABLET PO PRN (08:03)
[2022-08-26] MEDS: PANTOPRAZOLE SODIUM 40 MG DR TABLET PO SCH (08:03)
[2022-08-26] MEDS: AmLODIPine BESYLATE 5 MG TABLET PO SCH ×2 (08:03→17:00)
[2022-08-26] MEDS: LORazepam 0.5 MG TABLET PO PRN (08:03)
[2022-08-26 08:04] LABS: CALCIUM, TOTAL 8.9 mg/dL (8.8-10.5); CREATININE 1.99 mg/dL (0.60-1.30); POTASSIUM 5.1 mmol/L (3.5-5.1)
[2022-08-26] MEDS: METOPROLOL TARTRATE 25 MG TABLET PO SCH ×2 (08:04→17:00)
[2022-08-26] MEDS: MULTIVITAMINS WITH MINERALS, THERAPEUTIC TABLET PO SCH (08:04)
[2022-08-26] MEDS: NICOTINE 7 MG/24 HOUR PATCH TD SCH (09:19)
[2022-08-26 16:18] VITALS: BP 97/69
[2022-08-26] MEDS: MELATONIN 5 MG TABLET PO SCH (20:06)
[2022-08-26] MEDS: VALPROIC ACID 250 MG/5 ML SOLUTION UDCUP PO SCH (20:07)
[2022-08-26] MEDS: OLANZapine 10 MG RAPDIS TABLET PO SCH (20:07)
[2022-08-26] MEDS: ZOLPIDEM TARTRATE 10 MG TABLET PO PRN (21:37)
[2022-08-27 08:00] VITALS: BP 115/82
[2022-08-27] MEDS: METOPROLOL TARTRATE 25 MG TABLET PO SCH ×2 (11:17→17:56)
[2022-08-27] MEDS: OMEGA-3/DHA/EPA/FISH OIL 1,000 MG CAPSULE PO SCH (11:17)
[2022-08-27] MEDS: OLANZapine 5 MG RAPDIS TABLET PO PRN (11:17)
[2022-08-27] MEDS: PANTOPRAZOLE SODIUM 40 MG DR TABLET PO SCH (11:17)
[2022-08-27] MEDS: LORazepam 0.5 MG TABLET PO PRN (11:17)
[2022-08-27] MEDS: DULoxetine HCL 60 MG CAPSULE PO SCH (11:17)
[2022-08-27] MEDS: AmLODIPine BESYLATE 5 MG TABLET PO SCH ×2 (11:17→17:56)
[2022-08-27] MEDS: NICOTINE 7 MG/24 HOUR PATCH TD SCH (11:23)
[2022-08-27] MEDS: MULTIVITAMINS WITH MINERALS, THERAPEUTIC TABLET PO SCH (11:23)
[2022-08-27 16:20] VITALS: BP 137/91
[2022-08-27] MEDS: OLANZapine 10 MG RAPDIS TABLET PO SCH (20:48)
[2022-08-27] MEDS: MELATONIN 5 MG TABLET PO SCH (20:48)
[2022-08-27] MEDS: VALPROIC ACID 250 MG/5 ML SOLUTION UDCUP PO SCH (20:48)
[2022-08-27] MEDS: ZOLPIDEM TARTRATE 10 MG TABLET PO PRN (21:40)
[2022-08-28] MEDS: OMEGA-3/DHA/EPA/FISH OIL 1,000 MG CAPSULE PO SCH (08:23)
[2022-08-28] MEDS: MULTIVITAMINS WITH MINERALS, THERAPEUTIC TABLET PO SCH (08:23)
[2022-08-28] MEDS: PANTOPRAZOLE SODIUM 40 MG DR TABLET PO SCH (08:23)
[2022-08-28] MEDS: DULoxetine HCL 60 MG CAPSULE PO SCH (08:23)
[2022-08-28] MEDS: METOPROLOL TARTRATE 25 MG TABLET PO SCH ×2 (08:23→15:57)
[2022-08-28] MEDS: AmLODIPine BESYLATE 5 MG TABLET PO SCH ×2 (08:24→15:57)
[2022-08-28] MEDS: OLANZapine 5 MG RAPDIS TABLET PO PRN (08:25)
[2022-08-28] MEDS: NICOTINE 7 MG/24 HOUR PATCH TD SCH (08:27)
[2022-08-28 09:09] VITALS: BP 146/95
[2022-08-28 16:33] VITALS: BP 131/75
[2022-08-28] MEDS: OLANZapine 10 MG RAPDIS TABLET PO SCH (20:21)
[2022-08-28] MEDS: MELATONIN 5 MG TABLET PO SCH (20:21)
[2022-08-28] MEDS: VALPROIC ACID 250 MG/5 ML SOLUTION UDCUP PO SCH (20:21)
[2022-08-29 08:00] VITALS: BP 142/81
[2022-08-29] MEDS: NICOTINE 7 MG/24 HOUR PATCH TD SCH (09:00)
[2022-08-29] MEDS: AmLODIPine BESYLATE 5 MG TABLET PO SCH ×2 (09:26→16:08)
[2022-08-29] MEDS: OMEGA-3/DHA/EPA/FISH OIL 1,000 MG CAPSULE PO SCH (09:26)
[2022-08-29] MEDS: METOPROLOL TARTRATE 25 MG TABLET PO SCH ×2 (09:26→16:08)
[2022-08-29] MEDS: DULoxetine HCL 60 MG CAPSULE PO SCH (09:26)
[2022-08-29] MEDS: MULTIVITAMINS WITH MINERALS, THERAPEUTIC TABLET PO SCH (09:26)
[2022-08-29] MEDS: PANTOPRAZOLE SODIUM 40 MG DR TABLET PO SCH (09:26)
[2022-08-29] MEDS: OLANZapine 5 MG RAPDIS TABLET PO PRN (09:28)
[2022-08-29 16:05] VITALS: BP 133/84
[2022-08-29] MEDS: OLANZapine 10 MG RAPDIS TABLET PO SCH (20:15)
[2022-08-29] MEDS: MELATONIN 5 MG TABLET PO SCH (20:15)
[2022-08-29] MEDS: VALPROIC ACID 250 MG/5 ML SOLUTION UDCUP PO SCH (20:16)
[2022-08-30 08:00] VITALS: BP 158/84
[2022-08-30] MEDS: METOPROLOL TARTRATE 25 MG TABLET PO SCH ×2 (09:24→16:09)
[2022-08-30] MEDS: PANTOPRAZOLE SODIUM 40 MG DR TABLET PO SCH (09:24)
[2022-08-30] MEDS: DULoxetine HCL 60 MG CAPSULE PO SCH (09:24)
[2022-08-30] MEDS: MULTIVITAMINS WITH MINERALS, THERAPEUTIC TABLET PO SCH (09:24)
[2022-08-30] MEDS: OMEGA-3/DHA/EPA/FISH OIL 1,000 MG CAPSULE PO SCH (09:24)
[2022-08-30] MEDS: AmLODIPine BESYLATE 5 MG TABLET PO SCH ×2 (09:24→16:08)
[2022-08-30] MEDS: NICOTINE 7 MG/24 HOUR PATCH TD SCH (09:27)
[2022-08-30 16:01] VITALS: BP 144/97
[2022-08-30] MEDS: VALPROIC ACID 250 MG/5 ML SOLUTION UDCUP PO SCH (21:20)
[2022-08-30] MEDS: OLANZapine 10 MG RAPDIS TABLET PO SCH (21:21)
[2022-08-30] MEDS: MELATONIN 5 MG TABLET PO SCH (21:21)
[2022-08-30] MEDS: ZOLPIDEM TARTRATE 10 MG TABLET PO PRN (21:57)
[2022-08-31] MEDS: DULoxetine HCL 60 MG CAPSULE PO SCH (08:23)
[2022-08-31] MEDS: OMEGA-3/DHA/EPA/FISH OIL 1,000 MG CAPSULE PO SCH (08:23)
[2022-08-31] MEDS: METOPROLOL TARTRATE 25 MG TABLET PO SCH ×2 (08:24→18:45)
[2022-08-31] MEDS: NICOTINE 7 MG/24 HOUR PATCH TD SCH (08:24)
[2022-08-31] MEDS: PANTOPRAZOLE SODIUM 40 MG DR TABLET PO SCH (08:24)
[2022-08-31] MEDS: MULTIVITAMINS WITH MINERALS, THERAPEUTIC TABLET PO SCH (08:24)
[2022-08-31] MEDS: AmLODIPine BESYLATE 5 MG TABLET PO SCH ×2 (08:24→18:45)
[2022-08-31 08:41] VITALS: BP 120/78
[2022-08-31 16:00] VITALS: BP 131/79
[2022-08-31] MEDS: OLANZapine 10 MG RAPDIS TABLET PO SCH (20:22)
[2022-08-31] MEDS: MELATONIN 5 MG TABLET PO SCH (20:22)
[2022-08-31] MEDS: VALPROIC ACID 250 MG/5 ML SOLUTION UDCUP PO SCH (20:23)
[2022-09-01 06:39] LABS: COVID AG,FIA SOURCE NASAL SWAB
[2022-09-01] MEDS: DULoxetine HCL 60 MG CAPSULE PO SCH (09:28)
[2022-09-01] MEDS: AmLODIPine BESYLATE 5 MG TABLET PO SCH ×2 (09:28→17:02)
[2022-09-01] MEDS: METOPROLOL TARTRATE 25 MG TABLET PO SCH ×2 (09:28→17:02)
[2022-09-01] MEDS: LORazepam 0.5 MG TABLET PO PRN (09:28)
[2022-09-01] MEDS: OMEGA-3/DHA/EPA/FISH OIL 1,000 MG CAPSULE PO SCH (09:28)
[2022-09-01] MEDS: PANTOPRAZOLE SODIUM 40 MG DR TABLET PO SCH (09:29)
[2022-09-01] MEDS: MULTIVITAMINS WITH MINERALS, THERAPEUTIC TABLET PO SCH (09:29)
[2022-09-01] MEDS: OLANZapine 5 MG RAPDIS TABLET PO PRN (09:29)
[2022-09-01] MEDS: NICOTINE 7 MG/24 HOUR PATCH TD SCH (09:57)
[2022-09-01 10:23] VITALS: BP 141/76
[2022-09-01 16:32] VITALS: BP 133/79
[2022-09-01 16:34] VITALS: BP 133/79
[2022-09-01] MEDS: VALPROIC ACID 250 MG/5 ML SOLUTION UDCUP PO SCH (20:38)
[2022-09-01] MEDS: MELATONIN 5 MG TABLET PO SCH (20:38)
[2022-09-01] MEDS: OLANZapine 10 MG RAPDIS TABLET PO SCH (20:39)
[2022-09-02] MEDS: AmLODIPine BESYLATE 5 MG TABLET PO SCH ×2 (09:16→17:07)
[2022-09-02] MEDS: PANTOPRAZOLE SODIUM 40 MG DR TABLET PO SCH (09:16)
[2022-09-02] MEDS: LORazepam 0.5 MG TABLET PO PRN (09:16)
[2022-09-02] MEDS: MULTIVITAMINS WITH MINERALS, THERAPEUTIC TABLET PO SCH (09:16)
[2022-09-02] MEDS: DULoxetine HCL 60 MG CAPSULE PO SCH (09:16)
[2022-09-02] MEDS: OLANZapine 5 MG RAPDIS TABLET PO PRN (09:16)
[2022-09-02] MEDS: OMEGA-3/DHA/EPA/FISH OIL 1,000 MG CAPSULE PO SCH (09:17)
[2022-09-02] MEDS: METOPROLOL TARTRATE 25 MG TABLET PO SCH ×2 (09:17→17:08)
[2022-09-02] MEDS: NICOTINE 7 MG/24 HOUR PATCH TD SCH (09:25)
[2022-09-02 09:52] VITALS: BP 123/76
[2022-09-02 16:00] VITALS: BP 115/66
[2022-09-02] MEDS: MELATONIN 5 MG TABLET PO SCH (20:35)
[2022-09-02] MEDS: VALPROIC ACID 250 MG/5 ML SOLUTION UDCUP PO SCH (20:35)
[2022-09-02] MEDS: OLANZapine 10 MG RAPDIS TABLET PO SCH (20:36)
[2022-09-03] MEDS ORDERED: PrednisoLONE ACETATE 1% 5 ML OPHTHALMIC SUSPENSION OS SCH (09:00)
[2022-09-03] MEDS: MULTIVITAMINS WITH MINERALS, THERAPEUTIC TABLET PO SCH (09:06)
[2022-09-03] MEDS: NICOTINE 7 MG/24 HOUR PATCH TD SCH (09:06)
[2022-09-03] MEDS: PANTOPRAZOLE SODIUM 40 MG DR TABLET PO SCH (09:06)
[2022-09-03] MEDS: AmLODIPine BESYLATE 5 MG TABLET PO SCH ×2 (09:07→16:38)
[2022-09-03] MEDS: OMEGA-3/DHA/EPA/FISH OIL 1,000 MG CAPSULE PO SCH (09:07)
[2022-09-03] MEDS: DULoxetine HCL 60 MG CAPSULE PO SCH (09:07)
[2022-09-03] MEDS: METOPROLOL TARTRATE 25 MG TABLET PO SCH ×2 (09:07→16:39)
[2022-09-03 09:10] VITALS: BP 123/79
[2022-09-03 16:00] VITALS: BP 111/76
[2022-09-03] MEDS: ZOLPIDEM TARTRATE 10 MG TABLET PO PRN ×2 (21:38→22:20)
[2022-09-03] MEDS: MELATONIN 5 MG TABLET PO SCH (21:40)
[2022-09-03] MEDS: VALPROIC ACID 250 MG/5 ML SOLUTION UDCUP PO SCH (21:40)
[2022-09-03] MEDS: OLANZapine 10 MG RAPDIS TABLET PO SCH (21:40)
[2022-09-04 08:00] VITALS: BP 110/78
[2022-09-04] MEDS: PANTOPRAZOLE SODIUM 40 MG DR TABLET PO SCH (08:43)
[2022-09-04] MEDS: MULTIVITAMINS WITH MINERALS, THERAPEUTIC TABLET PO SCH (08:43)
[2022-09-04] MEDS: OMEGA-3/DHA/EPA/FISH OIL 1,000 MG CAPSULE PO SCH (08:43)
[2022-09-04] MEDS: DULoxetine HCL 60 MG CAPSULE PO SCH (08:43)
[2022-09-04] MEDS: NICOTINE 7 MG/24 HOUR PATCH TD SCH (08:43)
[2022-09-04] MEDS: AmLODIPine BESYLATE 5 MG TABLET PO SCH ×2 (08:44→17:00)
[2022-09-04] MEDS: METOPROLOL TARTRATE 25 MG TABLET PO SCH ×2 (08:44→17:00)
[2022-09-04 16:48] VITALS: BP 117/56
[2022-09-04] MEDS: OLANZapine 10 MG RAPDIS TABLET PO SCH (21:28)
[2022-09-04] MEDS: VALPROIC ACID 250 MG/5 ML SOLUTION UDCUP PO SCH (21:28)
[2022-09-04] MEDS: MELATONIN 5 MG TABLET PO SCH (21:28)
[2022-09-04] MEDS: ZOLPIDEM TARTRATE 10 MG TABLET PO PRN (22:32)
[2022-09-05] MEDS: MULTIVITAMINS WITH MINERALS, THERAPEUTIC TABLET PO SCH (09:04)
[2022-09-05] MEDS: METOPROLOL TARTRATE 25 MG TABLET PO SCH ×2 (09:04→16:29)
[2022-09-05] MEDS: DULoxetine HCL 60 MG CAPSULE PO SCH (09:04)
[2022-09-05] MEDS: OLANZapine 5 MG RAPDIS TABLET PO PRN (09:04)
[2022-09-05] MEDS: OMEGA-3/DHA/EPA/FISH OIL 1,000 MG CAPSULE PO SCH (09:04)
[2022-09-05] MEDS: AmLODIPine BESYLATE 5 MG TABLET PO SCH ×2 (09:04→16:29)
[2022-09-05] MEDS: PANTOPRAZOLE SODIUM 40 MG DR TABLET PO SCH (09:04)
[2022-09-05] MEDS: LORazepam 0.5 MG TABLET PO PRN (09:04)
[2022-09-05] MEDS: NICOTINE 7 MG/24 HOUR PATCH TD SCH (09:11)
[2022-09-05 09:57] VITALS: BP 119/71
[2022-09-05 09:58] VITALS: BP 119/71
[2022-09-05 16:00] VITALS: BP 143/69
[2022-09-05 16:39] VITALS: BP 143/69
[2022-09-05] MEDS: MELATONIN 5 MG TABLET PO SCH (20:39)
[2022-09-05] MEDS: VALPROIC ACID 250 MG/5 ML SOLUTION UDCUP PO SCH (20:39)
[2022-09-05] MEDS: OLANZapine 10 MG RAPDIS TABLET PO SCH (20:41)
[2022-09-05] MEDS: ZOLPIDEM TARTRATE 10 MG TABLET PO PRN (21:30)
[2022-09-06] MEDS: DULoxetine HCL 60 MG CAPSULE PO SCH (09:43)
[2022-09-06] MEDS: PANTOPRAZOLE SODIUM 40 MG DR TABLET PO SCH (09:43)
[2022-09-06] MEDS: MULTIVITAMINS WITH MINERALS, THERAPEUTIC TABLET PO SCH (09:44)
[2022-09-06] MEDS: OMEGA-3/DHA/EPA/FISH OIL 1,000 MG CAPSULE PO SCH (09:44)
[2022-09-06] MEDS: METOPROLOL TARTRATE 25 MG TABLET PO SCH ×2 (09:44→16:10)
[2022-09-06] MEDS: AmLODIPine BESYLATE 5 MG TABLET PO SCH ×2 (09:44→16:10)
[2022-09-06] MEDS: NICOTINE 7 MG/24 HOUR PATCH TD SCH (09:45)
[2022-09-06 10:00] VITALS: BP 130/58
[2022-09-06 16:28] VITALS: BP 113/82
[2022-09-06] MEDS: OLANZapine 10 MG RAPDIS TABLET PO SCH (20:39)
[2022-09-06] MEDS: MELATONIN 5 MG TABLET PO SCH (20:39)
[2022-09-06] MEDS: VALPROIC ACID 250 MG/5 ML SOLUTION UDCUP PO SCH (20:39)
[2022-09-07] MEDS: NICOTINE 7 MG/24 HOUR PATCH TD SCH (08:32)
[2022-09-07] MEDS: OMEGA-3/DHA/EPA/FISH OIL 1,000 MG CAPSULE PO SCH (08:35)
[2022-09-07] MEDS: MULTIVITAMINS WITH MINERALS, THERAPEUTIC TABLET PO SCH (08:35)
[2022-09-07] MEDS: AmLODIPine BESYLATE 5 MG TABLET PO SCH ×2 (08:35→16:05)
[2022-09-07] MEDS: PANTOPRAZOLE SODIUM 40 MG DR TABLET PO SCH (08:35)
[2022-09-07] MEDS: DULoxetine HCL 60 MG CAPSULE PO SCH (08:35)
[2022-09-07] MEDS: METOPROLOL TARTRATE 25 MG TABLET PO SCH ×2 (08:36→16:05)
[2022-09-07 08:52] VITALS: BP 138/86
[2022-09-07 16:24] VITALS: BP 137/84
[2022-09-07] MEDS: OLANZapine 10 MG RAPDIS TABLET PO SCH (20:12)
[2022-09-07] MEDS: VALPROIC ACID 250 MG/5 ML SOLUTION UDCUP PO SCH (20:13)
[2022-09-07] MEDS: MELATONIN 5 MG TABLET PO SCH (20:13)
[2022-09-08 06:43] LABS: COVID AG,FIA SOURCE NASAL SWAB
[2022-09-08 08:00] VITALS: BP 141/97
[2022-09-08] MEDS: DULoxetine HCL 60 MG CAPSULE PO SCH (08:15)
[2022-09-08] MEDS: PANTOPRAZOLE SODIUM 40 MG DR TABLET PO SCH (08:15)
[2022-09-08] MEDS: MULTIVITAMINS WITH MINERALS, THERAPEUTIC TABLET PO SCH (08:15)
[2022-09-08] MEDS: AmLODIPine BESYLATE 5 MG TABLET PO SCH ×2 (08:15→17:13)
[2022-09-08] MEDS: METOPROLOL TARTRATE 25 MG TABLET PO SCH ×2 (08:15→17:14)
[2022-09-08] MEDS: OMEGA-3/DHA/EPA/FISH OIL 1,000 MG CAPSULE PO SCH (08:16)
[2022-09-08] MEDS: NICOTINE 7 MG/24 HOUR PATCH TD SCH (09:00)
[2022-09-08 16:10] VITALS: BP 132/83
[2022-09-08] MEDS: VALPROIC ACID 250 MG/5 ML SOLUTION UDCUP PO SCH (21:13)
[2022-09-08] MEDS: MELATONIN 5 MG TABLET PO SCH (21:13)
[2022-09-08] MEDS: OLANZapine 10 MG RAPDIS TABLET PO SCH (21:14)
[2022-09-09 08:20] VITALS: BP 126/61
[2022-09-09] MEDS: AmLODIPine BESYLATE 5 MG TABLET PO SCH ×2 (08:38→17:02)
[2022-09-09] MEDS: PANTOPRAZOLE SODIUM 40 MG DR TABLET PO SCH (08:38)
[2022-09-09] MEDS: METOPROLOL TARTRATE 25 MG TABLET PO SCH ×2 (08:38→17:02)
[2022-09-09] MEDS: MULTIVITAMINS WITH MINERALS, THERAPEUTIC TABLET PO SCH (08:38)
[2022-09-09] MEDS: OMEGA-3/DHA/EPA/FISH OIL 1,000 MG CAPSULE PO SCH (08:38)
[2022-09-09] MEDS: DULoxetine HCL 60 MG CAPSULE PO SCH (08:38)
[2022-09-09] MEDS: NICOTINE 7 MG/24 HOUR PATCH TD SCH (08:40)
[2022-09-09 16:23] VITALS: BP 127/69
[2022-09-09 17:00] VITALS: BP 132/84
[2022-09-09] MEDS: VALPROIC ACID 250 MG/5 ML SOLUTION UDCUP PO SCH (20:29)
[2022-09-09] MEDS: OLANZapine 10 MG RAPDIS TABLET PO SCH (20:29)
[2022-09-09] MEDS: MELATONIN 5 MG TABLET PO SCH (20:29)
[2022-09-10] MEDS: OMEGA-3/DHA/EPA/FISH OIL 1,000 MG CAPSULE PO SCH (08:32)
[2022-09-10] MEDS: DULoxetine HCL 60 MG CAPSULE PO SCH (08:32)
[2022-09-10] MEDS: METOPROLOL TARTRATE 25 MG TABLET PO SCH ×2 (08:32→18:37)
[2022-09-10] MEDS: AmLODIPine BESYLATE 5 MG TABLET PO SCH ×2 (08:32→18:37)
[2022-09-10] MEDS: PANTOPRAZOLE SODIUM 40 MG DR TABLET PO SCH (08:32)
[2022-09-10] MEDS: MULTIVITAMINS WITH MINERALS, THERAPEUTIC TABLET PO SCH (08:32)
[2022-09-10 08:35] VITALS: BP 115/66
[2022-09-10] MEDS: NICOTINE 7 MG/24 HOUR PATCH TD SCH (08:35)
[2022-09-10 16:09] VITALS: BP 105/74
[2022-09-10 18:36] VITALS: BP 137/68
[2022-09-10] MEDS: VALPROIC ACID 250 MG/5 ML SOLUTION UDCUP PO SCH (21:15)
[2022-09-10] MEDS: OLANZapine 10 MG RAPDIS TABLET PO SCH (21:16)
[2022-09-10] MEDS: MELATONIN 5 MG TABLET PO SCH (21:16)
[2022-09-11] MEDS: OMEGA-3/DHA/EPA/FISH OIL 1,000 MG CAPSULE PO SCH (08:09)
[2022-09-11] MEDS: PANTOPRAZOLE SODIUM 40 MG DR TABLET PO SCH (08:09)
[2022-09-11] MEDS: DULoxetine HCL 60 MG CAPSULE PO SCH (08:09)
[2022-09-11] MEDS: METOPROLOL TARTRATE 25 MG TABLET PO SCH ×2 (08:09→16:07)
[2022-09-11] MEDS: MULTIVITAMINS WITH MINERALS, THERAPEUTIC TABLET PO SCH (08:09)
[2022-09-11] MEDS: NICOTINE 7 MG/24 HOUR PATCH TD SCH (08:10)
[2022-09-11] MEDS: AmLODIPine BESYLATE 5 MG TABLET PO SCH ×2 (08:11→16:06)
[2022-09-11 08:15] VITALS: BP 146/91
[2022-09-11 16:11] VITALS: BP 119/74
[2022-09-11] MEDS: VALPROIC ACID 250 MG/5 ML SOLUTION UDCUP PO SCH (20:03)
[2022-09-11] MEDS: OLANZapine 10 MG RAPDIS TABLET PO SCH (20:03)
[2022-09-11] MEDS: MELATONIN 5 MG TABLET PO SCH (20:03)
[2022-09-12 08:00] VITALS: BP 118/75
[2022-09-12] MEDS: DULoxetine HCL 60 MG CAPSULE PO SCH (09:10)
[2022-09-12] MEDS: MULTIVITAMINS WITH MINERALS, THERAPEUTIC TABLET PO SCH (09:10)
[2022-09-12] MEDS: NICOTINE 7 MG/24 HOUR PATCH TD SCH (09:10)
[2022-09-12] MEDS: METOPROLOL TARTRATE 25 MG TABLET PO SCH ×2 (09:11→16:51)
[2022-09-12] MEDS: PANTOPRAZOLE SODIUM 40 MG DR TABLET PO SCH (09:11)
[2022-09-12] MEDS: OMEGA-3/DHA/EPA/FISH OIL 1,000 MG CAPSULE PO SCH (09:11)
[2022-09-12] MEDS: AmLODIPine BESYLATE 5 MG TABLET PO SCH ×2 (09:12→16:51)
[2022-09-12 16:15] VITALS: BP 112/71
[2022-09-12] MEDS: MELATONIN 5 MG TABLET PO SCH (20:26)
[2022-09-12] MEDS: OLANZapine 10 MG RAPDIS TABLET PO SCH (20:26)
[2022-09-12] MEDS: VALPROIC ACID 250 MG/5 ML SOLUTION UDCUP PO SCH (20:27)
[2022-09-13] MEDS: MULTIVITAMINS WITH MINERALS, THERAPEUTIC TABLET PO SCH (08:40)
[2022-09-13] MEDS: DULoxetine HCL 60 MG CAPSULE PO SCH (08:40)
[2022-09-13] MEDS: METOPROLOL TARTRATE 25 MG TABLET PO SCH ×2 (08:40→17:23)
[2022-09-13] MEDS: OMEGA-3/DHA/EPA/FISH OIL 1,000 MG CAPSULE PO SCH (08:40)
[2022-09-13] MEDS: PANTOPRAZOLE SODIUM 40 MG DR TABLET PO SCH (08:40)
[2022-09-13] MEDS: AmLODIPine BESYLATE 5 MG TABLET PO SCH ×2 (08:40→17:23)
[2022-09-13] MEDS: NICOTINE 7 MG/24 HOUR PATCH TD SCH (08:41)
[2022-09-13 09:00] VITALS: BP 146/71
[2022-09-13 16:14] VITALS: BP 139/88
[2022-09-13] MEDS: VALPROIC ACID 250 MG/5 ML SOLUTION UDCUP PO SCH (20:37)
[2022-09-13] MEDS: MELATONIN 5 MG TABLET PO SCH (20:37)
[2022-09-13] MEDS: OLANZapine 10 MG RAPDIS TABLET PO SCH (20:38)
[2022-09-14 08:38] VITALS: BP 140/96
[2022-09-14] MEDS: DULoxetine HCL 60 MG CAPSULE PO SCH (08:38)
[2022-09-14] MEDS: METOPROLOL TARTRATE 25 MG TABLET PO SCH ×2 (08:38→17:11)
[2022-09-14] MEDS: MULTIVITAMINS WITH MINERALS, THERAPEUTIC TABLET PO SCH (08:38)
[2022-09-14] MEDS: AmLODIPine BESYLATE 5 MG TABLET PO SCH ×2 (08:38→17:11)
[2022-09-14] MEDS: OMEGA-3/DHA/EPA/FISH OIL 1,000 MG CAPSULE PO SCH (08:38)
[2022-09-14] MEDS: NICOTINE 7 MG/24 HOUR PATCH TD SCH (08:38)
[2022-09-14] MEDS: PANTOPRAZOLE SODIUM 40 MG DR TABLET PO SCH (08:38)
[2022-09-14 16:38] VITALS: BP 132/69
[2022-09-14] MEDS: VALPROIC ACID 250 MG/5 ML SOLUTION UDCUP PO SCH (20:40)
[2022-09-14] MEDS: OLANZapine 10 MG RAPDIS TABLET PO SCH (20:40)
[2022-09-14] MEDS: MELATONIN 5 MG TABLET PO SCH (20:40)
[2022-09-15 06:59] LABS: COVID AG,FIA SOURCE NASAL SWAB
[2022-09-15 08:00] VITALS: BP 142/82
[2022-09-15] MEDS: MULTIVITAMINS WITH MINERALS, THERAPEUTIC TABLET PO SCH (08:48)
[2022-09-15] MEDS: PANTOPRAZOLE SODIUM 40 MG DR TABLET PO SCH (08:48)
[2022-09-15] MEDS: OMEGA-3/DHA/EPA/FISH OIL 1,000 MG CAPSULE PO SCH (08:48)
[2022-09-15] MEDS: AmLODIPine BESYLATE 5 MG TABLET PO SCH ×2 (08:48→17:11)
[2022-09-15] MEDS: METOPROLOL TARTRATE 25 MG TABLET PO SCH ×2 (08:48→17:11)
[2022-09-15] MEDS: DULoxetine HCL 60 MG CAPSULE PO SCH (08:48)
[2022-09-15] MEDS: NICOTINE 7 MG/24 HOUR PATCH TD SCH (09:00)
[2022-09-15 16:03] VITALS: BP 151/91
[2022-09-15] MEDS: MELATONIN 5 MG TABLET PO SCH (20:20)
[2022-09-15] MEDS: VALPROIC ACID 250 MG/5 ML SOLUTION UDCUP PO SCH (20:20)
[2022-09-15] MEDS: OLANZapine 10 MG RAPDIS TABLET PO SCH (20:20)
[2022-09-16 08:00] VITALS: BP 150/80
[2022-09-16] MEDS: OMEGA-3/DHA/EPA/FISH OIL 1,000 MG CAPSULE PO SCH (08:18)
[2022-09-16] MEDS: PANTOPRAZOLE SODIUM 40 MG DR TABLET PO SCH (08:18)
[2022-09-16] MEDS: DULoxetine HCL 60 MG CAPSULE PO SCH (08:19)
[2022-09-16] MEDS: MULTIVITAMINS WITH MINERALS, THERAPEUTIC TABLET PO SCH (08:19)
[2022-09-16] MEDS: AmLODIPine BESYLATE 5 MG TABLET PO SCH ×2 (08:19→16:36)
[2022-09-16] MEDS: METOPROLOL TARTRATE 25 MG TABLET PO SCH ×2 (08:19→16:36)
[2022-09-16] MEDS: NICOTINE 7 MG/24 HOUR PATCH TD SCH (09:00)
[2022-09-16 16:00] VITALS: BP 124/65
[2022-09-16] MEDS: OLANZapine 10 MG RAPDIS TABLET PO SCH (20:59)
[2022-09-16] MEDS: VALPROIC ACID 250 MG/5 ML SOLUTION UDCUP PO SCH (21:00)
[2022-09-16] MEDS: MELATONIN 5 MG TABLET PO SCH (21:00)
[2022-09-16] MEDS: ZOLPIDEM TARTRATE 10 MG TABLET PO PRN (22:16)
[2022-09-17 08:00] VITALS: BP 112/61
[2022-09-17] MEDS: PANTOPRAZOLE SODIUM 40 MG DR TABLET PO SCH (09:18)
[2022-09-17] MEDS: AmLODIPine BESYLATE 5 MG TABLET PO SCH ×2 (09:18→16:40)
[2022-09-17] MEDS: OMEGA-3/DHA/EPA/FISH OIL 1,000 MG CAPSULE PO SCH (09:18)
[2022-09-17] MEDS: DULoxetine HCL 60 MG CAPSULE PO SCH (09:18)
[2022-09-17] MEDS: NICOTINE 7 MG/24 HOUR PATCH TD SCH (09:18)
[2022-09-17] MEDS: MULTIVITAMINS WITH MINERALS, THERAPEUTIC TABLET PO SCH (09:18)
[2022-09-17] MEDS: METOPROLOL TARTRATE 25 MG TABLET PO SCH ×2 (09:19→16:41)
[2022-09-17] MEDS: PALIPERIDONE PALMITATE 117 MG/0.75 ML SYRINGE IM SCH (09:51)
[2022-09-17 16:21] VITALS: BP 115/69
[2022-09-17] MEDS: MELATONIN 5 MG TABLET PO SCH (20:53)
[2022-09-17] MEDS: OLANZapine 10 MG RAPDIS TABLET PO SCH (20:53)
[2022-09-17] MEDS: VALPROIC ACID 250 MG/5 ML SOLUTION UDCUP PO SCH (20:53)
[2022-09-17] MEDS: ZOLPIDEM TARTRATE 10 MG TABLET PO PRN (21:59)
[2022-09-18] MEDS: MULTIVITAMINS WITH MINERALS, THERAPEUTIC TABLET PO SCH (09:03)
[2022-09-18] MEDS: PANTOPRAZOLE SODIUM 40 MG DR TABLET PO SCH (09:03)
[2022-09-18] MEDS: NICOTINE 7 MG/24 HOUR PATCH TD SCH (09:03)
[2022-09-18] MEDS: OMEGA-3/DHA/EPA/FISH OIL 1,000 MG CAPSULE PO SCH (09:03)
[2022-09-18] MEDS: DULoxetine HCL 60 MG CAPSULE PO SCH (09:03)
[2022-09-18] MEDS: METOPROLOL TARTRATE 25 MG TABLET PO SCH ×2 (09:04→17:06)
[2022-09-18] MEDS: AmLODIPine BESYLATE 5 MG TABLET PO SCH ×2 (09:04→17:07)
[2022-09-18 09:13] VITALS: BP 127/79
[2022-09-18 16:44] VITALS: BP 121/70
[2022-09-18] MEDS: VALPROIC ACID 250 MG/5 ML SOLUTION UDCUP PO SCH (20:55)
[2022-09-18] MEDS: OLANZapine 10 MG RAPDIS TABLET PO SCH (20:55)
[2022-09-18] MEDS: MELATONIN 5 MG TABLET PO SCH (20:55)
[2022-09-18] MEDS: ZOLPIDEM TARTRATE 10 MG TABLET PO PRN (22:14)
[2022-09-19 08:00] VITALS: BP 147/86
[2022-09-19] MEDS: METOPROLOL TARTRATE 25 MG TABLET PO SCH ×2 (08:40→16:02)
[2022-09-19] MEDS: PANTOPRAZOLE SODIUM 40 MG DR TABLET PO SCH (08:40)
[2022-09-19] MEDS: AmLODIPine BESYLATE 5 MG TABLET PO SCH ×2 (08:40→16:03)
[2022-09-19] MEDS: MULTIVITAMINS WITH MINERALS, THERAPEUTIC TABLET PO SCH (08:40)
[2022-09-19] MEDS: OMEGA-3/DHA/EPA/FISH OIL 1,000 MG CAPSULE PO SCH (08:40)
[2022-09-19] MEDS: DULoxetine HCL 60 MG CAPSULE PO SCH (08:40)
[2022-09-19] MEDS: NICOTINE 7 MG/24 HOUR PATCH TD SCH (08:42)
[2022-09-19 16:09] VITALS: BP 125/68
[2022-09-19] MEDS: VALPROIC ACID 250 MG/5 ML SOLUTION UDCUP PO SCH (21:06)
[2022-09-19] MEDS: OLANZapine 10 MG RAPDIS TABLET PO SCH (21:06)
[2022-09-19] MEDS: MELATONIN 5 MG TABLET PO SCH (21:06)
[2022-09-19] MEDS: ZOLPIDEM TARTRATE 10 MG TABLET PO PRN (21:51)
[2022-09-20 08:57] VITALS: BP 110/71
[2022-09-20] MEDS: AmLODIPine BESYLATE 5 MG TABLET PO SCH ×2 (09:33→16:59)
[2022-09-20] MEDS: DULoxetine HCL 60 MG CAPSULE PO SCH (09:33)
[2022-09-20] MEDS: METOPROLOL TARTRATE 25 MG TABLET PO SCH ×2 (09:33→17:00)
[2022-09-20] MEDS: MULTIVITAMINS WITH MINERALS, THERAPEUTIC TABLET PO SCH (09:33)
[2022-09-20] MEDS: PANTOPRAZOLE SODIUM 40 MG DR TABLET PO SCH (09:34)
[2022-09-20] MEDS: NICOTINE 7 MG/24 HOUR PATCH TD SCH (09:34)
[2022-09-20] MEDS: OMEGA-3/DHA/EPA/FISH OIL 1,000 MG CAPSULE PO SCH (09:34)
[2022-09-20 16:27] VITALS: BP 140/93
[2022-09-20] MEDS: MELATONIN 5 MG TABLET PO SCH (20:33)
[2022-09-20] MEDS: VALPROIC ACID 250 MG/5 ML SOLUTION UDCUP PO SCH (20:33)
[2022-09-20] MEDS: OLANZapine 10 MG RAPDIS TABLET PO SCH (20:33)
[2022-09-20] MEDS: ZOLPIDEM TARTRATE 10 MG TABLET PO PRN (21:17)
[2022-09-21 08:00] VITALS: BP 127/79
[2022-09-21] MEDS: OMEGA-3/DHA/EPA/FISH OIL 1,000 MG CAPSULE PO SCH (08:23)
[2022-09-21] MEDS: DULoxetine HCL 60 MG CAPSULE PO SCH (08:23)
[2022-09-21] MEDS: NICOTINE 7 MG/24 HOUR PATCH TD SCH (08:23)
[2022-09-21] MEDS: AmLODIPine BESYLATE 5 MG TABLET PO SCH ×2 (08:23→16:16)
[2022-09-21] MEDS: PANTOPRAZOLE SODIUM 40 MG DR TABLET PO SCH (08:23)
[2022-09-21] MEDS: MULTIVITAMINS WITH MINERALS, THERAPEUTIC TABLET PO SCH (08:23)
[2022-09-21] MEDS: METOPROLOL TARTRATE 25 MG TABLET PO SCH ×2 (08:23→16:16)
[2022-09-21 16:13] VITALS: BP 106/60
[2022-09-21] MEDS: MELATONIN 5 MG TABLET PO SCH (21:02)
[2022-09-21] MEDS: OLANZapine 10 MG RAPDIS TABLET PO SCH (21:02)
[2022-09-21] MEDS: VALPROIC ACID 250 MG/5 ML SOLUTION UDCUP PO SCH (21:02)
[2022-09-21] MEDS: ZOLPIDEM TARTRATE 10 MG TABLET PO PRN (22:27)
[2022-09-22 08:15] LABS: COVID AG,FIA SOURCE NASAL SWAB
[2022-09-22 09:03] VITALS: BP 144/81
[2022-09-22] MEDS: MULTIVITAMINS WITH MINERALS, THERAPEUTIC TABLET PO SCH (09:04)
[2022-09-22] MEDS: PANTOPRAZOLE SODIUM 40 MG DR TABLET PO SCH (09:04)
[2022-09-22] MEDS: AmLODIPine BESYLATE 5 MG TABLET PO SCH ×2 (09:04→16:09)
[2022-09-22] MEDS: OMEGA-3/DHA/EPA/FISH OIL 1,000 MG CAPSULE PO SCH (09:04)
[2022-09-22] MEDS: DULoxetine HCL 60 MG CAPSULE PO SCH (09:04)
[2022-09-22] MEDS: NICOTINE 7 MG/24 HOUR PATCH TD SCH (09:04)
[2022-09-22] MEDS: METOPROLOL TARTRATE 25 MG TABLET PO SCH ×2 (09:05→16:08)
[2022-09-22 16:36] VITALS: BP 129/74
[2022-09-22 16:38] VITALS: BP 129/74
[2022-09-22] MEDS: VALPROIC ACID 250 MG/5 ML SOLUTION UDCUP PO SCH (20:54)
[2022-09-22] MEDS: OLANZapine 10 MG RAPDIS TABLET PO SCH (20:55)
[2022-09-22] MEDS: MELATONIN 5 MG TABLET PO SCH (20:55)
[2022-09-23 07:49] LABS: ALBUMIN 3.1 g/dL (3.4-5.0); BILIRUBIN,TOTAL 0.2 mg/dL (0.1-1.0); CALCIUM, TOTAL 8.9 mg/dL (8.8-10.5); CREATININE 1.87 mg/dL (0.60-1.30); POTASSIUM 4.8 mmol/L (3.5-5.1); TOTAL PROTEIN, SERUM 8.2 g/dL (6.4-8.2)
[2022-09-23] MEDS: MULTIVITAMINS WITH MINERALS, THERAPEUTIC TABLET PO SCH (08:24)
[2022-09-23] MEDS: NICOTINE 7 MG/24 HOUR PATCH TD SCH (08:24)
[2022-09-23] MEDS: OMEGA-3/DHA/EPA/FISH OIL 1,000 MG CAPSULE PO SCH (08:25)
[2022-09-23] MEDS: DULoxetine HCL 60 MG CAPSULE PO SCH (08:25)
[2022-09-23] MEDS: METOPROLOL TARTRATE 25 MG TABLET PO SCH ×2 (08:25→16:09)
[2022-09-23] MEDS: PANTOPRAZOLE SODIUM 40 MG DR TABLET PO SCH (08:25)
[2022-09-23] MEDS: AmLODIPine BESYLATE 5 MG TABLET PO SCH ×2 (08:25→16:09)
[2022-09-23 08:44] VITALS: BP 154/93
[2022-09-23 17:05] VITALS: BP 121/74
[2022-09-23] MEDS: OLANZapine 10 MG RAPDIS TABLET PO SCH (20:59)
[2022-09-23] MEDS: VALPROIC ACID 250 MG/5 ML SOLUTION UDCUP PO SCH (20:59)
[2022-09-23] MEDS: MELATONIN 5 MG TABLET PO SCH (20:59)
[2022-09-24] MEDS: AmLODIPine BESYLATE 5 MG TABLET PO SCH ×2 (08:39→16:27)
[2022-09-24] MEDS: OMEGA-3/DHA/EPA/FISH OIL 1,000 MG CAPSULE PO SCH (08:39)
[2022-09-24] MEDS: PANTOPRAZOLE SODIUM 40 MG DR TABLET PO SCH (08:39)
[2022-09-24] MEDS: METOPROLOL TARTRATE 25 MG TABLET PO SCH ×2 (08:39→16:27)
[2022-09-24] MEDS: MULTIVITAMINS WITH MINERALS, THERAPEUTIC TABLET PO SCH (08:39)
[2022-09-24] MEDS: DULoxetine HCL 60 MG CAPSULE PO SCH (08:39)
[2022-09-24] MEDS: NICOTINE 7 MG/24 HOUR PATCH TD SCH (08:40)
[2022-09-24 08:41] VITALS: BP 127/84
[2022-09-24 16:06] VITALS: BP 113/61
[2022-09-24] MEDS: VALPROIC ACID 250 MG/5 ML SOLUTION UDCUP PO SCH (21:12)
[2022-09-24] MEDS: MELATONIN 5 MG TABLET PO SCH (21:12)
[2022-09-24] MEDS: OLANZapine 10 MG RAPDIS TABLET PO SCH (21:12)
[2022-09-25 08:00] VITALS: BP 139/80
[2022-09-25] MEDS: OMEGA-3/DHA/EPA/FISH OIL 1,000 MG CAPSULE PO SCH (09:48)
[2022-09-25] MEDS: DULoxetine HCL 60 MG CAPSULE PO SCH (09:49)
[2022-09-25] MEDS: AmLODIPine BESYLATE 5 MG TABLET PO SCH ×2 (09:49→16:49)
[2022-09-25] MEDS: PANTOPRAZOLE SODIUM 40 MG DR TABLET PO SCH (09:49)
[2022-09-25] MEDS: MULTIVITAMINS WITH MINERALS, THERAPEUTIC TABLET PO SCH (09:49)
[2022-09-25] MEDS: METOPROLOL TARTRATE 25 MG TABLET PO SCH ×2 (09:49→16:49)
[2022-09-25] MEDS: NICOTINE 7 MG/24 HOUR PATCH TD SCH (09:50)
[2022-09-25 16:00] VITALS: BP 129/89
[2022-09-25] MEDS: OLANZapine 10 MG RAPDIS TABLET PO SCH (20:36)
[2022-09-25] MEDS: MELATONIN 5 MG TABLET PO SCH (20:36)
[2022-09-25] MEDS: VALPROIC ACID 250 MG/5 ML SOLUTION UDCUP PO SCH (20:36)
[2022-09-26 08:00] VITALS: BP 146/96
[2022-09-26] MEDS: DULoxetine HCL 60 MG CAPSULE PO SCH (09:09)
[2022-09-26] MEDS: MULTIVITAMINS WITH MINERALS, THERAPEUTIC TABLET PO SCH (09:09)
[2022-09-26] MEDS: OMEGA-3/DHA/EPA/FISH OIL 1,000 MG CAPSULE PO SCH (09:09)
[2022-09-26] MEDS: METOPROLOL TARTRATE 25 MG TABLET PO SCH ×2 (09:09→17:29)
[2022-09-26] MEDS: PANTOPRAZOLE SODIUM 40 MG DR TABLET PO SCH (09:09)
[2022-09-26] MEDS: AmLODIPine BESYLATE 5 MG TABLET PO SCH ×2 (09:09→17:29)
[2022-09-26] MEDS: NICOTINE 7 MG/24 HOUR PATCH TD SCH (09:11)
[2022-09-26 16:00] VITALS: BP 131/91
[2022-09-26] MEDS: OLANZapine 10 MG RAPDIS TABLET PO SCH (20:30)
[2022-09-26] MEDS: MELATONIN 5 MG TABLET PO SCH (20:30)
[2022-09-26] MEDS: VALPROIC ACID 250 MG/5 ML SOLUTION UDCUP PO SCH (20:31)
[2022-09-27 08:53] VITALS: BP 132/74
[2022-09-27] MEDS: PANTOPRAZOLE SODIUM 40 MG DR TABLET PO SCH (08:55)
[2022-09-27] MEDS: OMEGA-3/DHA/EPA/FISH OIL 1,000 MG CAPSULE PO SCH (08:55)
[2022-09-27] MEDS: METOPROLOL TARTRATE 25 MG TABLET PO SCH ×2 (08:55→16:19)
[2022-09-27] MEDS: DULoxetine HCL 60 MG CAPSULE PO SCH (08:55)
[2022-09-27] MEDS: MULTIVITAMINS WITH MINERALS, THERAPEUTIC TABLET PO SCH (08:55)
[2022-09-27] MEDS: NICOTINE 7 MG/24 HOUR PATCH TD SCH (08:56)
[2022-09-27] MEDS: AmLODIPine BESYLATE 5 MG TABLET PO SCH ×2 (08:56→16:19)
[2022-09-27] MEDS: LORazepam 0.5 MG TABLET PO PRN (09:16)
[2022-09-27] MEDS: OLANZapine 5 MG RAPDIS TABLET PO PRN (09:16)
[2022-09-27 17:06] VITALS: BP 113/67
[2022-09-27] MEDS: VALPROIC ACID 250 MG/5 ML SOLUTION UDCUP PO SCH (21:31)
[2022-09-27] MEDS: OLANZapine 10 MG RAPDIS TABLET PO SCH (21:32)
[2022-09-27] MEDS: MELATONIN 5 MG TABLET PO SCH (21:32)
[2022-09-28] MEDS: DULoxetine HCL 60 MG CAPSULE PO SCH (08:26)
[2022-09-28] MEDS: OMEGA-3/DHA/EPA/FISH OIL 1,000 MG CAPSULE PO SCH (08:26)
[2022-09-28] MEDS: PANTOPRAZOLE SODIUM 40 MG DR TABLET PO SCH (08:27)
[2022-09-28] MEDS: MULTIVITAMINS WITH MINERALS, THERAPEUTIC TABLET PO SCH (08:27)
[2022-09-28 08:29] VITALS: BP 154/94
[2022-09-28] MEDS: NICOTINE 7 MG/24 HOUR PATCH TD SCH (08:29)
[2022-09-28] MEDS: AmLODIPine BESYLATE 5 MG TABLET PO SCH ×3 (09:00→16:10)
[2022-09-28] MEDS: METOPROLOL TARTRATE 25 MG TABLET PO SCH ×3 (09:00→16:10)
[2022-09-28 16:47] VITALS: BP 133/77
[2022-09-28] MEDS: MELATONIN 5 MG TABLET PO SCH (20:46)
[2022-09-28] MEDS: OLANZapine 10 MG RAPDIS TABLET PO SCH (20:46)
[2022-09-28] MEDS: VALPROIC ACID 250 MG/5 ML SOLUTION UDCUP PO SCH (20:46)
[2022-09-29 06:33] LABS: COVID AG,FIA SOURCE NASAL SWAB
[2022-09-29] MEDS: MULTIVITAMINS WITH MINERALS, THERAPEUTIC TABLET PO SCH (08:44)
[2022-09-29] MEDS: OMEGA-3/DHA/EPA/FISH OIL 1,000 MG CAPSULE PO SCH (08:45)
[2022-09-29] MEDS: AmLODIPine BESYLATE 5 MG TABLET PO SCH ×2 (08:45→16:33)
[2022-09-29] MEDS: METOPROLOL TARTRATE 25 MG TABLET PO SCH ×2 (08:45→16:33)
[2022-09-29] MEDS: DULoxetine HCL 60 MG CAPSULE PO SCH (08:45)
[2022-09-29] MEDS: NICOTINE 7 MG/24 HOUR PATCH TD SCH (08:46)
[2022-09-29] MEDS: PANTOPRAZOLE SODIUM 40 MG DR TABLET PO SCH (08:46)
[2022-09-29 09:15] VITALS: BP 136/96
[2022-09-29 16:46] VITALS: BP 155/99
[2022-09-29] MEDS: VALPROIC ACID 250 MG/5 ML SOLUTION UDCUP PO SCH (20:32)
[2022-09-29] MEDS: MELATONIN 5 MG TABLET PO SCH (20:33)
[2022-09-29] MEDS: OLANZapine 10 MG RAPDIS TABLET PO SCH (20:33)
[2022-09-30 08:43] VITALS: BP 153/87
[2022-09-30] MEDS: DULoxetine HCL 60 MG CAPSULE PO SCH (08:54)
[2022-09-30] MEDS: AmLODIPine BESYLATE 5 MG TABLET PO SCH ×2 (08:54→16:23)
[2022-09-30] MEDS: OMEGA-3/DHA/EPA/FISH OIL 1,000 MG CAPSULE PO SCH (08:54)
[2022-09-30] MEDS: PANTOPRAZOLE SODIUM 40 MG DR TABLET PO SCH (08:54)
[2022-09-30] MEDS: METOPROLOL TARTRATE 25 MG TABLET PO SCH ×2 (08:58→16:23)
[2022-09-30] MEDS: MULTIVITAMINS WITH MINERALS, THERAPEUTIC TABLET PO SCH (08:58)
[2022-09-30] MEDS: NICOTINE 7 MG/24 HOUR PATCH TD SCH (09:00)
[2022-09-30] MEDS: OLANZapine 10 MG RAPDIS TABLET PO SCH (20:49)
[2022-09-30] MEDS: MELATONIN 5 MG TABLET PO SCH (20:49)
[2022-09-30] MEDS: VALPROIC ACID 250 MG/5 ML SOLUTION UDCUP PO SCH (20:50)
[2022-10-01 09:03] VITALS: BP 148/86
[2022-10-01] MEDS: NICOTINE 7 MG/24 HOUR PATCH TD SCH (09:17)
[2022-10-01] MEDS: AmLODIPine BESYLATE 5 MG TABLET PO SCH ×2 (09:19→17:56)
[2022-10-01] MEDS: METOPROLOL TARTRATE 25 MG TABLET PO SCH ×2 (09:19→17:56)
[2022-10-01] MEDS: OMEGA-3/DHA/EPA/FISH OIL 1,000 MG CAPSULE PO SCH (09:19)
[2022-10-01] MEDS: DULoxetine HCL 60 MG CAPSULE PO SCH (09:19)
[2022-10-01] MEDS: MULTIVITAMINS WITH MINERALS, THERAPEUTIC TABLET PO SCH (09:19)
[2022-10-01] MEDS: PANTOPRAZOLE SODIUM 40 MG DR TABLET PO SCH (09:20)
[2022-10-01 16:00] VITALS: BP 143/83
[2022-10-01] MEDS: MELATONIN 5 MG TABLET PO SCH (21:12)
[2022-10-01] MEDS: VALPROIC ACID 250 MG/5 ML SOLUTION UDCUP PO SCH (21:13)
[2022-10-01] MEDS: OLANZapine 10 MG RAPDIS TABLET PO SCH (21:13)
[2022-10-01] MEDS: ZOLPIDEM TARTRATE 10 MG TABLET PO PRN (22:15)
[2022-10-02] MEDS: AmLODIPine BESYLATE 5 MG TABLET PO SCH ×2 (08:41→16:28)
[2022-10-02] MEDS: OMEGA-3/DHA/EPA/FISH OIL 1,000 MG CAPSULE PO SCH (08:41)
[2022-10-02] MEDS: METOPROLOL TARTRATE 25 MG TABLET PO SCH ×2 (08:41→16:28)
[2022-10-02] MEDS: DULoxetine HCL 60 MG CAPSULE PO SCH (08:41)
[2022-10-02] MEDS: MULTIVITAMINS WITH MINERALS, THERAPEUTIC TABLET PO SCH (08:41)
[2022-10-02] MEDS: PANTOPRAZOLE SODIUM 40 MG DR TABLET PO SCH (08:41)
[2022-10-02] MEDS: NICOTINE 7 MG/24 HOUR PATCH TD SCH (08:46)
[2022-10-02 09:30] VITALS: BP 147/93
[2022-10-02 16:26] VITALS: BP 142/78
[2022-10-02] MEDS: VALPROIC ACID 250 MG/5 ML SOLUTION UDCUP PO SCH (20:05)
[2022-10-02] MEDS: MELATONIN 5 MG TABLET PO SCH (20:05)
[2022-10-02] MEDS: OLANZapine 10 MG RAPDIS TABLET PO SCH (20:05)
[2022-10-02] MEDS: ZOLPIDEM TARTRATE 10 MG TABLET PO PRN (21:55)
[2022-10-03 08:30] VITALS: BP 132/86
[2022-10-03] MEDS: DULoxetine HCL 60 MG CAPSULE PO SCH (09:09)
[2022-10-03] MEDS: OMEGA-3/DHA/EPA/FISH OIL 1,000 MG CAPSULE PO SCH (09:09)
[2022-10-03] MEDS: PANTOPRAZOLE SODIUM 40 MG DR TABLET PO SCH (09:09)
[2022-10-03] MEDS: METOPROLOL TARTRATE 25 MG TABLET PO SCH ×2 (09:09→16:55)
[2022-10-03] MEDS: AmLODIPine BESYLATE 5 MG TABLET PO SCH ×2 (09:09→16:54)
[2022-10-03] MEDS: MULTIVITAMINS WITH MINERALS, THERAPEUTIC TABLET PO SCH (09:09)
[2022-10-03] MEDS: NICOTINE 7 MG/24 HOUR PATCH TD SCH (09:10)
[2022-10-03 16:17] VITALS: BP 144/75
[2022-10-03] MEDS: VALPROIC ACID 250 MG/5 ML SOLUTION UDCUP PO SCH (20:26)
[2022-10-03] MEDS: MELATONIN 5 MG TABLET PO SCH (20:26)
[2022-10-03] MEDS: OLANZapine 10 MG RAPDIS TABLET PO SCH (20:26)
[2022-10-04 08:00] VITALS: BP 130/92
[2022-10-04] MEDS: DULoxetine HCL 60 MG CAPSULE PO SCH (08:57)
[2022-10-04] MEDS: MULTIVITAMINS WITH MINERALS, THERAPEUTIC TABLET PO SCH (08:57)
[2022-10-04] MEDS: PANTOPRAZOLE SODIUM 40 MG DR TABLET PO SCH (08:57)
[2022-10-04] MEDS: OMEGA-3/DHA/EPA/FISH OIL 1,000 MG CAPSULE PO SCH (08:57)
[2022-10-04] MEDS: METOPROLOL TARTRATE 25 MG TABLET PO SCH ×2 (08:58→16:32)
[2022-10-04] MEDS: NICOTINE 7 MG/24 HOUR PATCH TD SCH (08:58)
[2022-10-04] MEDS: AmLODIPine BESYLATE 5 MG TABLET PO SCH ×2 (08:59→16:32)
[2022-10-04 18:23] VITALS: BP 147/89
[2022-10-04] MEDS: OLANZapine 10 MG RAPDIS TABLET PO SCH (21:27)
[2022-10-04] MEDS: VALPROIC ACID 250 MG/5 ML SOLUTION UDCUP PO SCH (21:28)
[2022-10-04] MEDS: MELATONIN 5 MG TABLET PO SCH (21:28)
[2022-10-04] MEDS: ZOLPIDEM TARTRATE 10 MG TABLET PO PRN (22:15)
[2022-10-05 08:18] VITALS: BP 131/79
[2022-10-05] MEDS: NICOTINE 7 MG/24 HOUR PATCH TD SCH (09:02)
[2022-10-05] MEDS: OMEGA-3/DHA/EPA/FISH OIL 1,000 MG CAPSULE PO SCH (09:02)
[2022-10-05] MEDS: METOPROLOL TARTRATE 25 MG TABLET PO SCH ×2 (09:03→17:02)
[2022-10-05] MEDS: AmLODIPine BESYLATE 5 MG TABLET PO SCH ×2 (09:04→17:01)
[2022-10-05] MEDS: PANTOPRAZOLE SODIUM 40 MG DR TABLET PO SCH (09:04)
[2022-10-05] MEDS: MULTIVITAMINS WITH MINERALS, THERAPEUTIC TABLET PO SCH (09:04)
[2022-10-05] MEDS: DULoxetine HCL 60 MG CAPSULE PO SCH (09:04)
[2022-10-05 16:00] VITALS: BP 128/82
[2022-10-05] MEDS: VALPROIC ACID 250 MG/5 ML SOLUTION UDCUP PO SCH (20:09)
[2022-10-05] MEDS: OLANZapine 10 MG RAPDIS TABLET PO SCH (20:09)
[2022-10-05] MEDS: MELATONIN 5 MG TABLET PO SCH (20:10)
[2022-10-05 20:18] VITALS: BP 128/91
[2022-10-06 07:10] LABS: COVID AG,FIA SOURCE NASAL SWAB
[2022-10-06] MEDS: MULTIVITAMINS WITH MINERALS, THERAPEUTIC TABLET PO SCH (08:33)
[2022-10-06] MEDS: METOPROLOL TARTRATE 25 MG TABLET PO SCH ×2 (08:33→16:41)
[2022-10-06] MEDS: OMEGA-3/DHA/EPA/FISH OIL 1,000 MG CAPSULE PO SCH (08:33)
[2022-10-06] MEDS: PANTOPRAZOLE SODIUM 40 MG DR TABLET PO SCH (08:33)
[2022-10-06] MEDS: AmLODIPine BESYLATE 5 MG TABLET PO SCH ×2 (08:33→16:41)
[2022-10-06] MEDS: DULoxetine HCL 60 MG CAPSULE PO SCH (08:33)
[2022-10-06] MEDS: NICOTINE 7 MG/24 HOUR PATCH TD SCH (08:34)
[2022-10-06 09:27] VITALS: BP 132/83
[2022-10-06] MEDS: OFLOXACIN 0.3% 5 ML OPHTHALMIC SOLUTION OS SCH ×3 (13:00→21:39)
[2022-10-06] MEDS: KETOROLAC TROMETHAMINE 0.4% 5 ML OPHTHALMIC SOLUTION OS SCH ×3 (13:00→21:39)
[2022-10-06] MEDS: VALPROIC ACID 250 MG/5 ML SOLUTION UDCUP PO SCH (21:21)
[2022-10-06] MEDS: MELATONIN 5 MG TABLET PO SCH (21:21)
[2022-10-06] MEDS: OLANZapine 10 MG RAPDIS TABLET PO SCH (21:21)
[2022-10-07 08:39] VITALS: BP 140/87
[2022-10-07] MEDS: OMEGA-3/DHA/EPA/FISH OIL 1,000 MG CAPSULE PO SCH (09:52)
[2022-10-07] MEDS: AmLODIPine BESYLATE 5 MG TABLET PO SCH ×2 (09:52→17:00)
[2022-10-07] MEDS: METOPROLOL TARTRATE 25 MG TABLET PO SCH ×2 (09:52→17:00)
[2022-10-07] MEDS: DULoxetine HCL 60 MG CAPSULE PO SCH (09:53)
[2022-10-07] MEDS: PANTOPRAZOLE SODIUM 40 MG DR TABLET PO SCH (09:53)
[2022-10-07] MEDS: MULTIVITAMINS WITH MINERALS, THERAPEUTIC TABLET PO SCH (09:53)
[2022-10-07] MEDS: OFLOXACIN 0.3% 5 ML OPHTHALMIC SOLUTION OS SCH ×4 (09:54→20:45)
[2022-10-07] MEDS: KETOROLAC TROMETHAMINE 0.4% 5 ML OPHTHALMIC SOLUTION OS SCH ×4 (09:54→20:45)
[2022-10-07] MEDS: NICOTINE 7 MG/24 HOUR PATCH TD SCH (09:55)
[2022-10-07 16:19] VITALS: BP 108/69
[2022-10-07] MEDS: OLANZapine 10 MG RAPDIS TABLET PO SCH (20:45)
[2022-10-07] MEDS: MELATONIN 5 MG TABLET PO SCH (20:45)
[2022-10-07] MEDS: VALPROIC ACID 250 MG/5 ML SOLUTION UDCUP PO SCH (20:45)
[2022-10-08 08:52] VITALS: BP 142/60
[2022-10-08] MEDS: KETOROLAC TROMETHAMINE 0.4% 5 ML OPHTHALMIC SOLUTION OS SCH ×4 (08:58→20:47)
[2022-10-08] MEDS: OFLOXACIN 0.3% 5 ML OPHTHALMIC SOLUTION OS SCH ×4 (08:58→20:47)
[2022-10-08] MEDS: PANTOPRAZOLE SODIUM 40 MG DR TABLET PO SCH (09:00)
[2022-10-08] MEDS: DULoxetine HCL 60 MG CAPSULE PO SCH (09:00)
[2022-10-08] MEDS: MULTIVITAMINS WITH MINERALS, THERAPEUTIC TABLET PO SCH (09:00)
[2022-10-08] MEDS: OMEGA-3/DHA/EPA/FISH OIL 1,000 MG CAPSULE PO SCH (09:00)
[2022-10-08] MEDS: METOPROLOL TARTRATE 25 MG TABLET PO SCH ×2 (09:01→17:42)
[2022-10-08] MEDS: AmLODIPine BESYLATE 5 MG TABLET PO SCH ×2 (09:01→17:42)
[2022-10-08] MEDS: NICOTINE 7 MG/24 HOUR PATCH TD SCH (09:08)
[2022-10-08] MEDS: PrednisoLONE ACETATE 1% 5 ML OPHTHALMIC SUSPENSION OS SCH ×2 (17:43→20:47)
[2022-10-08] MEDS: VALPROIC ACID 250 MG/5 ML SOLUTION UDCUP PO SCH (20:47)
[2022-10-08] MEDS: OLANZapine 10 MG RAPDIS TABLET PO SCH (20:47)
[2022-10-08] MEDS: MELATONIN 5 MG TABLET PO SCH (20:47)
[2022-10-09] MEDS: METOPROLOL TARTRATE 25 MG TABLET PO SCH ×2 (09:19→16:19)
[2022-10-09] MEDS: NICOTINE 7 MG/24 HOUR PATCH TD SCH (09:19)
[2022-10-09] MEDS: PANTOPRAZOLE SODIUM 40 MG DR TABLET PO SCH (09:19)
[2022-10-09] MEDS: DULoxetine HCL 60 MG CAPSULE PO SCH (09:19)
[2022-10-09] MEDS: AmLODIPine BESYLATE 5 MG TABLET PO SCH ×2 (09:19→16:19)
[2022-10-09] MEDS: OMEGA-3/DHA/EPA/FISH OIL 1,000 MG CAPSULE PO SCH (09:19)
[2022-10-09] MEDS: MULTIVITAMINS WITH MINERALS, THERAPEUTIC TABLET PO SCH (09:19)
[2022-10-09] MEDS: PrednisoLONE ACETATE 1% 5 ML OPHTHALMIC SUSPENSION OS SCH ×4 (09:22→21:23)
[2022-10-09] MEDS: KETOROLAC TROMETHAMINE 0.4% 5 ML OPHTHALMIC SOLUTION OS SCH ×4 (09:22→21:22)
[2022-10-09] MEDS: OFLOXACIN 0.3% 5 ML OPHTHALMIC SOLUTION OS SCH ×4 (09:22→21:22)
[2022-10-09 09:34] VITALS: BP 141/85
[2022-10-09 16:08] VITALS: BP 110/74
[2022-10-09] MEDS: MELATONIN 5 MG TABLET PO SCH (21:20)
[2022-10-09] MEDS: OLANZapine 10 MG RAPDIS TABLET PO SCH (21:20)
[2022-10-09] MEDS: VALPROIC ACID 250 MG/5 ML SOLUTION UDCUP PO SCH (21:22)
[2022-10-10 08:59] VITALS: BP 119/73
[2022-10-10] MEDS: AmLODIPine BESYLATE 5 MG TABLET PO SCH ×2 (09:23→16:41)
[2022-10-10] MEDS: PANTOPRAZOLE SODIUM 40 MG DR TABLET PO SCH (09:23)
[2022-10-10] MEDS: METOPROLOL TARTRATE 25 MG TABLET PO SCH ×2 (09:23→16:41)
[2022-10-10] MEDS: MULTIVITAMINS WITH MINERALS, THERAPEUTIC TABLET PO SCH (09:23)
[2022-10-10] MEDS: OMEGA-3/DHA/EPA/FISH OIL 1,000 MG CAPSULE PO SCH (09:23)
[2022-10-10] MEDS: DULoxetine HCL 60 MG CAPSULE PO SCH (09:23)
[2022-10-10] MEDS: NICOTINE 7 MG/24 HOUR PATCH TD SCH (09:24)
[2022-10-10 16:07] VITALS: BP 141/98
[2022-10-10] MEDS: MELATONIN 5 MG TABLET PO SCH (20:32)
[2022-10-10] MEDS: OLANZapine 10 MG RAPDIS TABLET PO SCH (20:32)
[2022-10-10] MEDS: VALPROIC ACID 250 MG/5 ML SOLUTION UDCUP PO SCH (20:32)
[2022-10-11 09:00] VITALS: BP 103/55
[2022-10-11] MEDS: DULoxetine HCL 60 MG CAPSULE PO SCH (09:00)
[2022-10-11] MEDS: METOPROLOL TARTRATE 25 MG TABLET PO SCH ×2 (09:00→17:49)
[2022-10-11] MEDS: OMEGA-3/DHA/EPA/FISH OIL 1,000 MG CAPSULE PO SCH (09:00)
[2022-10-11] MEDS: PANTOPRAZOLE SODIUM 40 MG DR TABLET PO SCH (09:00)
[2022-10-11] MEDS: AmLODIPine BESYLATE 5 MG TABLET PO SCH ×2 (09:00→17:49)
[2022-10-11] MEDS: MULTIVITAMINS WITH MINERALS, THERAPEUTIC TABLET PO SCH (09:00)
[2022-10-11] MEDS ORDERED: DULoxetine HCL 20 MG CAPSULE PO SCH (09:00)
[2022-10-11] MEDS: NICOTINE 7 MG/24 HOUR PATCH TD SCH (09:01)
[2022-10-11 16:49] VITALS: BP 111/61
[2022-10-11] MEDS: VALPROIC ACID 250 MG/5 ML SOLUTION UDCUP PO SCH (20:26)
[2022-10-11] MEDS: MELATONIN 5 MG TABLET PO SCH (20:27)
[2022-10-11] MEDS: OLANZapine 10 MG RAPDIS TABLET PO SCH (20:27)
[2022-10-12 08:55] VITALS: BP 140/84
[2022-10-12] MEDS: AmLODIPine BESYLATE 5 MG TABLET PO SCH ×2 (09:24→16:43)
[2022-10-12] MEDS: NICOTINE 7 MG/24 HOUR PATCH TD SCH (09:24)
[2022-10-12] MEDS: OMEGA-3/DHA/EPA/FISH OIL 1,000 MG CAPSULE PO SCH (09:24)
[2022-10-12] MEDS: DULoxetine HCL 60 MG CAPSULE PO SCH (09:24)
[2022-10-12] MEDS: METOPROLOL TARTRATE 25 MG TABLET PO SCH ×2 (09:25→16:43)
[2022-10-12] MEDS: MULTIVITAMINS WITH MINERALS, THERAPEUTIC TABLET PO SCH (09:26)
[2022-10-12] MEDS: PANTOPRAZOLE SODIUM 40 MG DR TABLET PO SCH (09:26)
[2022-10-12 18:04] VITALS: BP 140/78
[2022-10-12] MEDS: OLANZapine 10 MG RAPDIS TABLET PO SCH (21:01)
[2022-10-12] MEDS: VALPROIC ACID 250 MG/5 ML SOLUTION UDCUP PO SCH (21:01)
[2022-10-12] MEDS: MELATONIN 5 MG TABLET PO SCH (21:01)
[2022-10-13 07:32] LABS: COVID AG,FIA SOURCE NASAL SWAB
[2022-10-13 08:30] VITALS: BP 145/94
[2022-10-13] MEDS: OMEGA-3/DHA/EPA/FISH OIL 1,000 MG CAPSULE PO SCH (10:43)
[2022-10-13] MEDS: MULTIVITAMINS WITH MINERALS, THERAPEUTIC TABLET PO SCH (10:43)
[2022-10-13] MEDS: NICOTINE 7 MG/24 HOUR PATCH TD SCH (10:43)
[2022-10-13] MEDS: DULoxetine HCL 60 MG CAPSULE PO SCH (10:44)
[2022-10-13] MEDS: METOPROLOL TARTRATE 25 MG TABLET PO SCH ×2 (10:44→16:36)
[2022-10-13] MEDS: AmLODIPine BESYLATE 5 MG TABLET PO SCH ×2 (10:44→16:36)
[2022-10-13] MEDS: PANTOPRAZOLE SODIUM 40 MG DR TABLET PO SCH (10:45)
[2022-10-13 16:00] VITALS: BP 122/77
[2022-10-13] MEDS: VALPROIC ACID 250 MG/5 ML SOLUTION UDCUP PO SCH (20:23)
[2022-10-13] MEDS: MELATONIN 5 MG TABLET PO SCH (20:23)
[2022-10-13] MEDS: OLANZapine 10 MG RAPDIS TABLET PO SCH (20:24)
[2022-10-14 08:00] VITALS: BP 108/62
[2022-10-14] MEDS: NICOTINE 7 MG/24 HOUR PATCH TD SCH (09:45)
[2022-10-14] MEDS: AmLODIPine BESYLATE 5 MG TABLET PO SCH ×2 (09:45→17:37)
[2022-10-14] MEDS: OMEGA-3/DHA/EPA/FISH OIL 1,000 MG CAPSULE PO SCH (09:45)
[2022-10-14] MEDS: METOPROLOL TARTRATE 25 MG TABLET PO SCH ×2 (09:45→17:38)
[2022-10-14] MEDS: MULTIVITAMINS WITH MINERALS, THERAPEUTIC TABLET PO SCH (09:45)
[2022-10-14] MEDS: DULoxetine HCL 60 MG CAPSULE PO SCH (09:45)
[2022-10-14] MEDS: PANTOPRAZOLE SODIUM 40 MG DR TABLET PO SCH (09:49)
[2022-10-14 16:44] VITALS: BP 107/67
[2022-10-14] MEDS: MELATONIN 5 MG TABLET PO SCH (21:02)
[2022-10-14] MEDS: OLANZapine 10 MG RAPDIS TABLET PO SCH (21:02)
[2022-10-14] MEDS: VALPROIC ACID 250 MG/5 ML SOLUTION UDCUP PO SCH (21:07)
[2022-10-15] MEDS: NICOTINE 7 MG/24 HOUR PATCH TD SCH (09:21)
[2022-10-15] MEDS: OMEGA-3/DHA/EPA/FISH OIL 1,000 MG CAPSULE PO SCH (09:21)
[2022-10-15] MEDS: PANTOPRAZOLE SODIUM 40 MG DR TABLET PO SCH (09:21)
[2022-10-15] MEDS: AmLODIPine BESYLATE 5 MG TABLET PO SCH ×2 (09:21→16:10)
[2022-10-15] MEDS: MULTIVITAMINS WITH MINERALS, THERAPEUTIC TABLET PO SCH (09:22)
[2022-10-15] MEDS: METOPROLOL TARTRATE 25 MG TABLET PO SCH ×2 (09:22→16:10)
[2022-10-15] MEDS: DULoxetine HCL 60 MG CAPSULE PO SCH (09:22)
[2022-10-15 11:40] VITALS: BP 121/64
[2022-10-15 16:37] VITALS: BP 140/81
[2022-10-15] MEDS ORDERED: PrednisoLONE ACETATE 1% 5 ML OPHTHALMIC SUSPENSION OS SCH (17:00)
[2022-10-15] MEDS: OLANZapine 10 MG RAPDIS TABLET PO SCH (20:30)
[2022-10-15] MEDS: MELATONIN 5 MG TABLET PO SCH (20:30)
[2022-10-15] MEDS: VALPROIC ACID 250 MG/5 ML SOLUTION UDCUP PO SCH (20:31)
[2022-10-15] MEDS: ZOLPIDEM TARTRATE 10 MG TABLET PO PRN (22:14)
[2022-10-16] MEDS: MULTIVITAMINS WITH MINERALS, THERAPEUTIC TABLET PO SCH (08:38)
[2022-10-16] MEDS: AmLODIPine BESYLATE 5 MG TABLET PO SCH ×2 (08:38→16:26)
[2022-10-16] MEDS: OMEGA-3/DHA/EPA/FISH OIL 1,000 MG CAPSULE PO SCH (08:38)
[2022-10-16] MEDS: NICOTINE 7 MG/24 HOUR PATCH TD SCH (08:38)
[2022-10-16] MEDS: DULoxetine HCL 60 MG CAPSULE PO SCH (08:38)
[2022-10-16] MEDS: METOPROLOL TARTRATE 25 MG TABLET PO SCH ×2 (08:39→16:26)
[2022-10-16] MEDS: PANTOPRAZOLE SODIUM 40 MG DR TABLET PO SCH (08:39)
[2022-10-16 09:00] VITALS: BP 144/94
[2022-10-16 16:41] VITALS: BP 78/130
[2022-10-16] MEDS: OLANZapine 10 MG RAPDIS TABLET PO SCH (20:39)
[2022-10-16] MEDS: MELATONIN 5 MG TABLET PO SCH (20:40)
[2022-10-16] MEDS: VALPROIC ACID 250 MG/5 ML SOLUTION UDCUP PO SCH (20:40)
[2022-10-16] MEDS: ZOLPIDEM TARTRATE 10 MG TABLET PO PRN (21:20)
[2022-10-17 08:00] VITALS: BP 142/89
[2022-10-17] MEDS: AmLODIPine BESYLATE 5 MG TABLET PO SCH ×2 (08:37→16:15)
[2022-10-17] MEDS: OMEGA-3/DHA/EPA/FISH OIL 1,000 MG CAPSULE PO SCH (08:37)
[2022-10-17] MEDS: DULoxetine HCL 60 MG CAPSULE PO SCH (08:37)
[2022-10-17] MEDS: METOPROLOL TARTRATE 25 MG TABLET PO SCH ×2 (08:37→16:14)
[2022-10-17] MEDS: PANTOPRAZOLE SODIUM 40 MG DR TABLET PO SCH (08:38)
[2022-10-17] MEDS: MULTIVITAMINS WITH MINERALS, THERAPEUTIC TABLET PO SCH (08:38)
[2022-10-17] MEDS: NICOTINE 7 MG/24 HOUR PATCH TD SCH (08:39)
[2022-10-17 16:31] VITALS: BP 115/75
[2022-10-17] MEDS: MELATONIN 5 MG TABLET PO SCH (20:13)
[2022-10-17] MEDS: VALPROIC ACID 250 MG/5 ML SOLUTION UDCUP PO SCH (20:13)
[2022-10-17] MEDS: OLANZapine 10 MG RAPDIS TABLET PO SCH (20:14)
[2022-10-18 09:08] VITALS: BP 117/83
[2022-10-18] MEDS: DULoxetine HCL 60 MG CAPSULE PO SCH (10:00)
[2022-10-18] MEDS: AmLODIPine BESYLATE 5 MG TABLET PO SCH ×2 (10:00→17:32)
[2022-10-18] MEDS: MULTIVITAMINS WITH MINERALS, THERAPEUTIC TABLET PO SCH (10:00)
[2022-10-18] MEDS: OMEGA-3/DHA/EPA/FISH OIL 1,000 MG CAPSULE PO SCH (10:00)
[2022-10-18] MEDS: NICOTINE 7 MG/24 HOUR PATCH TD SCH (10:01)
[2022-10-18] MEDS: PANTOPRAZOLE SODIUM 40 MG DR TABLET PO SCH (10:02)
[2022-10-18] MEDS: METOPROLOL TARTRATE 25 MG TABLET PO SCH ×2 (10:02→17:32)
[2022-10-18 16:00] VITALS: BP 119/65
[2022-10-18] MEDS: VALPROIC ACID 250 MG/5 ML SOLUTION UDCUP PO SCH (20:39)
[2022-10-18] MEDS: OLANZapine 10 MG RAPDIS TABLET PO SCH (20:40)
[2022-10-18] MEDS: MELATONIN 5 MG TABLET PO SCH (20:42)
[2022-10-18] MEDS: ZOLPIDEM TARTRATE 10 MG TABLET PO PRN (22:03)
[2022-10-19] MEDS: OMEGA-3/DHA/EPA/FISH OIL 1,000 MG CAPSULE PO SCH (08:57)
[2022-10-19] MEDS: PANTOPRAZOLE SODIUM 40 MG DR TABLET PO SCH (08:57)
[2022-10-19] MEDS: AmLODIPine BESYLATE 5 MG TABLET PO SCH ×2 (08:58→16:09)
[2022-10-19] MEDS: METOPROLOL TARTRATE 25 MG TABLET PO SCH ×2 (08:58→16:09)
[2022-10-19] MEDS: MULTIVITAMINS WITH MINERALS, THERAPEUTIC TABLET PO SCH (08:58)
[2022-10-19] MEDS: DULoxetine HCL 60 MG CAPSULE PO SCH (08:58)
[2022-10-19] MEDS: NICOTINE 7 MG/24 HOUR PATCH TD SCH (08:59)
[2022-10-19 09:51] VITALS: BP 132/71
[2022-10-19] MEDS: MELATONIN 5 MG TABLET PO SCH (21:25)
[2022-10-19] MEDS: OLANZapine 10 MG RAPDIS TABLET PO SCH (21:25)
[2022-10-19] MEDS: VALPROIC ACID 250 MG/5 ML SOLUTION UDCUP PO SCH (21:27)
[2022-10-20 07:30] LABS: COVID AG,FIA SOURCE NASAL SWAB
[2022-10-20] MEDS: AmLODIPine BESYLATE 5 MG TABLET PO SCH ×2 (08:22→16:29)
[2022-10-20] MEDS: NICOTINE 7 MG/24 HOUR PATCH TD SCH (08:22)
[2022-10-20] MEDS: PANTOPRAZOLE SODIUM 40 MG DR TABLET PO SCH (08:22)
[2022-10-20] MEDS: METOPROLOL TARTRATE 25 MG TABLET PO SCH ×2 (08:22→16:30)
[2022-10-20] MEDS: DULoxetine HCL 60 MG CAPSULE PO SCH (08:22)
[2022-10-20] MEDS: OMEGA-3/DHA/EPA/FISH OIL 1,000 MG CAPSULE PO SCH (08:22)
[2022-10-20] MEDS: MULTIVITAMINS WITH MINERALS, THERAPEUTIC TABLET PO SCH (08:24)
[2022-10-20 08:37] VITALS: BP 106/69
[2022-10-20 16:30] VITALS: BP 128/86
[2022-10-20] MEDS: MELATONIN 5 MG TABLET PO SCH (21:04)
[2022-10-20] MEDS: OLANZapine 10 MG RAPDIS TABLET PO SCH (21:05)
[2022-10-20] MEDS: VALPROIC ACID 250 MG/5 ML SOLUTION UDCUP PO SCH (21:33)
[2022-10-21 08:32] VITALS: BP 113/75
[2022-10-21] MEDS: AmLODIPine BESYLATE 5 MG TABLET PO SCH ×2 (08:35→16:34)
[2022-10-21] MEDS: DULoxetine HCL 60 MG CAPSULE PO SCH (08:35)
[2022-10-21] MEDS: METOPROLOL TARTRATE 25 MG TABLET PO SCH ×2 (08:36→16:34)
[2022-10-21] MEDS: PANTOPRAZOLE SODIUM 40 MG DR TABLET PO SCH (08:36)
[2022-10-21] MEDS: MULTIVITAMINS WITH MINERALS, THERAPEUTIC TABLET PO SCH (08:36)
[2022-10-21] MEDS: OMEGA-3/DHA/EPA/FISH OIL 1,000 MG CAPSULE PO SCH (08:36)
[2022-10-21] MEDS: NICOTINE 7 MG/24 HOUR PATCH TD SCH (09:00)
[2022-10-21] MEDS: LORazepam 0.5 MG TABLET PO PRN (09:28)
[2022-10-21] MEDS: OLANZapine 5 MG RAPDIS TABLET PO PRN (09:28)
[2022-10-21 16:10] VITALS: BP 130/86
[2022-10-21] MEDS: OLANZapine 10 MG RAPDIS TABLET PO SCH (20:32)
[2022-10-21] MEDS: MELATONIN 5 MG TABLET PO SCH (20:33)
[2022-10-21] MEDS: VALPROIC ACID 250 MG/5 ML SOLUTION UDCUP PO SCH (20:34)
[2022-10-22 08:43] VITALS: BP 126/74
[2022-10-22] MEDS: DULoxetine HCL 60 MG CAPSULE PO SCH (08:55)
[2022-10-22] MEDS: PANTOPRAZOLE SODIUM 40 MG DR TABLET PO SCH (08:55)
[2022-10-22] MEDS: AmLODIPine BESYLATE 5 MG TABLET PO SCH ×2 (08:55→16:47)
[2022-10-22] MEDS: OMEGA-3/DHA/EPA/FISH OIL 1,000 MG CAPSULE PO SCH (08:55)
[2022-10-22] MEDS: MULTIVITAMINS WITH MINERALS, THERAPEUTIC TABLET PO SCH (08:55)
[2022-10-22] MEDS: NICOTINE 7 MG/24 HOUR PATCH TD SCH (08:55)
[2022-10-22] MEDS: METOPROLOL TARTRATE 25 MG TABLET PO SCH ×2 (09:01→16:48)
[2022-10-22 16:29] VITALS: BP 106/69
[2022-10-22] MEDS: VALPROIC ACID 250 MG/5 ML SOLUTION UDCUP PO SCH (21:04)
[2022-10-22] MEDS: OLANZapine 10 MG RAPDIS TABLET PO SCH (21:05)
[2022-10-22] MEDS: MELATONIN 5 MG TABLET PO SCH (21:05)
[2022-10-23] MEDS: MULTIVITAMINS WITH MINERALS, THERAPEUTIC TABLET PO SCH (08:22)
[2022-10-23] MEDS: OMEGA-3/DHA/EPA/FISH OIL 1,000 MG CAPSULE PO SCH (08:22)
[2022-10-23] MEDS: AmLODIPine BESYLATE 5 MG TABLET PO SCH ×2 (08:22→17:10)
[2022-10-23] MEDS: METOPROLOL TARTRATE 25 MG TABLET PO SCH ×2 (08:22→17:10)
[2022-10-23] MEDS: DULoxetine HCL 60 MG CAPSULE PO SCH (08:22)
[2022-10-23] MEDS: PANTOPRAZOLE SODIUM 40 MG DR TABLET PO SCH (08:23)
[2022-10-23] MEDS: NICOTINE 7 MG/24 HOUR PATCH TD SCH (08:23)
[2022-10-23] MEDS: OLANZapine 5 MG RAPDIS TABLET PO PRN (08:25)
[2022-10-23 10:44] VITALS: BP 138/94
[2022-10-23 16:32] VITALS: BP 143/83
[2022-10-23] MEDS: VALPROIC ACID 250 MG/5 ML SOLUTION UDCUP PO SCH (20:44)
[2022-10-23] MEDS: MELATONIN 5 MG TABLET PO SCH (20:46)
[2022-10-23] MEDS: OLANZapine 10 MG RAPDIS TABLET PO SCH (20:46)
[2022-10-23] MEDS: ZOLPIDEM TARTRATE 10 MG TABLET PO PRN (21:30)
[2022-10-24] MEDS: DULoxetine HCL 60 MG CAPSULE PO SCH (08:07)
[2022-10-24] MEDS: AmLODIPine BESYLATE 5 MG TABLET PO SCH ×2 (08:07→16:09)
[2022-10-24] MEDS: MULTIVITAMINS WITH MINERALS, THERAPEUTIC TABLET PO SCH (08:07)
[2022-10-24] MEDS: METOPROLOL TARTRATE 25 MG TABLET PO SCH ×2 (08:07→16:09)
[2022-10-24] MEDS: NICOTINE 7 MG/24 HOUR PATCH TD SCH (08:07)
[2022-10-24] MEDS: OMEGA-3/DHA/EPA/FISH OIL 1,000 MG CAPSULE PO SCH (08:07)
[2022-10-24] MEDS: PANTOPRAZOLE SODIUM 40 MG DR TABLET PO SCH (08:07)
[2022-10-24] MEDS: OLANZapine 5 MG RAPDIS TABLET PO PRN (08:09)
[2022-10-24 08:15] VITALS: BP 160/90
[2022-10-24] MEDS: LORazepam 0.5 MG TABLET PO PRN (15:44)
[2022-10-24 16:07] VITALS: BP 139/95
[2022-10-24] MEDS: OLANZapine 10 MG RAPDIS TABLET PO SCH (20:33)
[2022-10-24] MEDS: VALPROIC ACID 250 MG/5 ML SOLUTION UDCUP PO SCH (20:33)
[2022-10-24] MEDS: MELATONIN 5 MG TABLET PO SCH (20:33)
[2022-10-25] MEDS: METOPROLOL TARTRATE 25 MG TABLET PO SCH ×2 (08:37→16:14)
[2022-10-25] MEDS: PANTOPRAZOLE SODIUM 40 MG DR TABLET PO SCH (08:37)
[2022-10-25] MEDS: MULTIVITAMINS WITH MINERALS, THERAPEUTIC TABLET PO SCH (08:37)
[2022-10-25] MEDS: AmLODIPine BESYLATE 5 MG TABLET PO SCH ×2 (08:37→16:14)
[2022-10-25] MEDS: DULoxetine HCL 60 MG CAPSULE PO SCH (08:37)
[2022-10-25] MEDS: OMEGA-3/DHA/EPA/FISH OIL 1,000 MG CAPSULE PO SCH (08:37)
[2022-10-25] MEDS: NICOTINE 7 MG/24 HOUR PATCH TD SCH ×2 (08:37→08:40)
[2022-10-25 08:48] VITALS: BP 140/88
[2022-10-25 16:25] VITALS: BP 127/82
[2022-10-25] MEDS: OLANZapine 10 MG RAPDIS TABLET PO SCH (20:24)
[2022-10-25] MEDS: MELATONIN 5 MG TABLET PO SCH (20:24)
[2022-10-25] MEDS: VALPROIC ACID 250 MG/5 ML SOLUTION UDCUP PO SCH (20:26)
[2022-10-25] MEDS: ZOLPIDEM TARTRATE 10 MG TABLET PO PRN (21:22)
[2022-10-26 08:30] VITALS: BP 143/94
[2022-10-26] MEDS: NICOTINE 7 MG/24 HOUR PATCH TD SCH (09:00)
[2022-10-26] MEDS: METOPROLOL TARTRATE 25 MG TABLET PO SCH ×2 (09:54→16:40)
[2022-10-26] MEDS: AmLODIPine BESYLATE 5 MG TABLET PO SCH ×2 (09:54→16:40)
[2022-10-26] MEDS: DULoxetine HCL 60 MG CAPSULE PO SCH (09:54)
[2022-10-26] MEDS: MULTIVITAMINS WITH MINERALS, THERAPEUTIC TABLET PO SCH (09:54)
[2022-10-26] MEDS: PANTOPRAZOLE SODIUM 40 MG DR TABLET PO SCH (09:54)
[2022-10-26] MEDS: LORazepam 0.5 MG TABLET PO PRN (09:54)
[2022-10-26] MEDS: OMEGA-3/DHA/EPA/FISH OIL 1,000 MG CAPSULE PO SCH (09:54)
[2022-10-26] MEDS: OLANZapine 5 MG RAPDIS TABLET PO PRN (09:54)
[2022-10-26 16:35] VITALS: BP 130/79
[2022-10-26] MEDS: MELATONIN 5 MG TABLET PO SCH (20:18)
[2022-10-26] MEDS: OLANZapine 10 MG RAPDIS TABLET PO SCH (20:18)
[2022-10-26] MEDS: VALPROIC ACID 250 MG/5 ML SOLUTION UDCUP PO SCH (20:18)
[2022-10-27 08:53] VITALS: BP 123/73
[2022-10-27] MEDS: NICOTINE 7 MG/24 HOUR PATCH TD SCH (09:00)
[2022-10-27] MEDS: AmLODIPine BESYLATE 5 MG TABLET PO SCH ×2 (10:39→19:48)
[2022-10-27] MEDS: MULTIVITAMINS WITH MINERALS, THERAPEUTIC TABLET PO SCH (10:39)
[2022-10-27] MEDS: PANTOPRAZOLE SODIUM 40 MG DR TABLET PO SCH (10:39)
[2022-10-27] MEDS: OLANZapine 5 MG RAPDIS TABLET PO PRN (10:40)
[2022-10-27] MEDS: METOPROLOL TARTRATE 25 MG TABLET PO SCH ×2 (10:40→19:48)
[2022-10-27] MEDS: LORazepam 0.5 MG TABLET PO PRN (10:40)
[2022-10-27] MEDS: OMEGA-3/DHA/EPA/FISH OIL 1,000 MG CAPSULE PO SCH (10:40)
[2022-10-27] MEDS: DULoxetine HCL 60 MG CAPSULE PO SCH (10:40)
[2022-10-27 19:47] VITALS: BP 145/84
[2022-10-27] MEDS: VALPROIC ACID 250 MG/5 ML SOLUTION UDCUP PO SCH (20:05)
[2022-10-27] MEDS: MELATONIN 5 MG TABLET PO SCH (20:05)
[2022-10-27] MEDS: OLANZapine 10 MG RAPDIS TABLET PO SCH (20:05)
[2022-10-28 07:29] LABS: COVID AG,FIA SOURCE NASAL SWAB
[2022-10-28] MEDS: NICOTINE 7 MG/24 HOUR PATCH TD SCH (09:00)
[2022-10-28] MEDS: AmLODIPine BESYLATE 5 MG TABLET PO SCH ×2 (10:28→17:40)
[2022-10-28] MEDS: OMEGA-3/DHA/EPA/FISH OIL 1,000 MG CAPSULE PO SCH (10:28)
[2022-10-28] MEDS: MULTIVITAMINS WITH MINERALS, THERAPEUTIC TABLET PO SCH (10:28)
[2022-10-28] MEDS: METOPROLOL TARTRATE 25 MG TABLET PO SCH ×2 (10:28→17:40)
[2022-10-28] MEDS: PANTOPRAZOLE SODIUM 40 MG DR TABLET PO SCH (10:28)
[2022-10-28] MEDS: DULoxetine HCL 60 MG CAPSULE PO SCH (10:28)
[2022-10-28 10:48] VITALS: BP 150/95
[2022-10-28 16:26] VITALS: BP 132/90
[2022-10-28] MEDS: VALPROIC ACID 250 MG/5 ML SOLUTION UDCUP PO SCH (20:37)
[2022-10-28] MEDS: OLANZapine 10 MG RAPDIS TABLET PO SCH (20:38)
[2022-10-28] MEDS: MELATONIN 5 MG TABLET PO SCH (20:38)
[2022-10-29 08:40] VITALS: BP 136/72
[2022-10-29] MEDS: NICOTINE 7 MG/24 HOUR PATCH TD SCH ×2 (09:00→09:27)
[2022-10-29] MEDS: DULoxetine HCL 60 MG CAPSULE PO SCH (09:26)
[2022-10-29] MEDS: PANTOPRAZOLE SODIUM 40 MG DR TABLET PO SCH (09:26)
[2022-10-29] MEDS: METOPROLOL TARTRATE 25 MG TABLET PO SCH ×2 (09:26→16:33)
[2022-10-29] MEDS: OMEGA-3/DHA/EPA/FISH OIL 1,000 MG CAPSULE PO SCH (09:26)
[2022-10-29] MEDS: AmLODIPine BESYLATE 5 MG TABLET PO SCH ×2 (09:27→16:33)
[2022-10-29] MEDS: MULTIVITAMINS WITH MINERALS, THERAPEUTIC TABLET PO SCH (09:27)
[2022-10-29] MEDS ORDERED: NYSTATIN 15 GM POWDER BOTTLE TP PRN (11:30)
[2022-10-29 17:03] VITALS: BP 117/54
[2022-10-29] MEDS: MELATONIN 5 MG TABLET PO SCH (21:15)
[2022-10-29] MEDS: OLANZapine 10 MG RAPDIS TABLET PO SCH (21:15)
[2022-10-29] MEDS: VALPROIC ACID 250 MG/5 ML SOLUTION UDCUP PO SCH (21:16)
[2022-10-30 08:25] VITALS: BP 149/79
[2022-10-30] MEDS: OMEGA-3/DHA/EPA/FISH OIL 1,000 MG CAPSULE PO SCH (08:56)
[2022-10-30] MEDS: MULTIVITAMINS WITH MINERALS, THERAPEUTIC TABLET PO SCH (08:56)
[2022-10-30] MEDS: DULoxetine HCL 60 MG CAPSULE PO SCH (08:56)
[2022-10-30] MEDS: AmLODIPine BESYLATE 5 MG TABLET PO SCH ×2 (08:57→16:53)
[2022-10-30] MEDS: METOPROLOL TARTRATE 25 MG TABLET PO SCH ×2 (08:57→16:53)
[2022-10-30] MEDS: PANTOPRAZOLE SODIUM 40 MG DR TABLET PO SCH (08:57)
[2022-10-30] MEDS ORDERED: PrednisoLONE ACETATE 1% 5 ML OPHTHALMIC SUSPENSION OS SCH (09:00)
[2022-10-30 16:41] VITALS: BP 147/89
[2022-10-30] MEDS: OLANZapine 10 MG RAPDIS TABLET PO SCH (20:24)
[2022-10-30] MEDS: MELATONIN 5 MG TABLET PO SCH (20:25)
[2022-10-30] MEDS: VALPROIC ACID 250 MG/5 ML SOLUTION UDCUP PO SCH (20:25)
[2022-10-31 09:30] VITALS: BP 147/96
[2022-10-31] MEDS: MULTIVITAMINS WITH MINERALS, THERAPEUTIC TABLET PO SCH (09:36)
[2022-10-31] MEDS: OMEGA-3/DHA/EPA/FISH OIL 1,000 MG CAPSULE PO SCH (09:36)
[2022-10-31] MEDS: METOPROLOL TARTRATE 25 MG TABLET PO SCH ×2 (09:36→16:28)
[2022-10-31] MEDS: AmLODIPine BESYLATE 5 MG TABLET PO SCH ×2 (09:36→16:28)
[2022-10-31] MEDS: DULoxetine HCL 60 MG CAPSULE PO SCH (09:37)
[2022-10-31] MEDS: PANTOPRAZOLE SODIUM 40 MG DR TABLET PO SCH (09:37)
[2022-10-31] MEDS: NICOTINE 7 MG/24 HOUR PATCH TD PRN (09:39)
[2022-10-31 16:17] VITALS: BP 143/61
[2022-10-31] MEDS: VALPROIC ACID 250 MG/5 ML SOLUTION UDCUP PO SCH (20:51)
[2022-10-31] MEDS: MELATONIN 5 MG TABLET PO SCH (20:52)
[2022-10-31] MEDS: OLANZapine 10 MG RAPDIS TABLET PO SCH (20:52)
[2022-11-01 08:30] VITALS: BP 121/88
[2022-11-01] MEDS: METOPROLOL TARTRATE 25 MG TABLET PO SCH ×2 (08:49→16:19)
[2022-11-01] MEDS: OMEGA-3/DHA/EPA/FISH OIL 1,000 MG CAPSULE PO SCH (08:49)
[2022-11-01] MEDS: NICOTINE 7 MG/24 HOUR PATCH TD PRN (08:49)
[2022-11-01] MEDS: PANTOPRAZOLE SODIUM 40 MG DR TABLET PO SCH (08:50)
[2022-11-01] MEDS: DULoxetine HCL 60 MG CAPSULE PO SCH (08:50)
[2022-11-01] MEDS: MULTIVITAMINS WITH MINERALS, THERAPEUTIC TABLET PO SCH (08:50)
[2022-11-01] MEDS: AmLODIPine BESYLATE 5 MG TABLET PO SCH ×2 (08:51→16:19)
[2022-11-01 16:11] VITALS: BP 132/86
[2022-11-01] MEDS: OLANZapine 10 MG RAPDIS TABLET PO SCH (20:08)
[2022-11-01] MEDS: MELATONIN 5 MG TABLET PO SCH (20:08)
[2022-11-01] MEDS: VALPROIC ACID 250 MG/5 ML SOLUTION UDCUP PO SCH (20:08)
[2022-11-02 08:35] VITALS: BP 147/65
[2022-11-02] MEDS: DULoxetine HCL 60 MG CAPSULE PO SCH (09:12)
[2022-11-02] MEDS: AmLODIPine BESYLATE 5 MG TABLET PO SCH ×2 (09:12→17:38)
[2022-11-02] MEDS: MULTIVITAMINS WITH MINERALS, THERAPEUTIC TABLET PO SCH (09:12)
[2022-11-02] MEDS: OMEGA-3/DHA/EPA/FISH OIL 1,000 MG CAPSULE PO SCH (09:12)
[2022-11-02] MEDS: PANTOPRAZOLE SODIUM 40 MG DR TABLET PO SCH (09:12)
[2022-11-02] MEDS: METOPROLOL TARTRATE 25 MG TABLET PO SCH ×2 (09:12→17:38)
[2022-11-02 16:08] VITALS: BP 147/80
[2022-11-02] MEDS: OLANZapine 5 MG RAPDIS TABLET PO PRN (17:38)
[2022-11-02] MEDS: LORazepam 0.5 MG TABLET PO PRN (17:38)
[2022-11-02] MEDS: OLANZapine 10 MG RAPDIS TABLET PO SCH (20:32)
[2022-11-02] MEDS: MELATONIN 5 MG TABLET PO SCH (20:33)
[2022-11-02] MEDS: VALPROIC ACID 250 MG/5 ML SOLUTION UDCUP PO SCH (20:34)
[2022-11-03 08:30] VITALS: BP 145/60
[2022-11-03 08:38] VITALS: BP 105/60
[2022-11-03 09:42] VITALS: BP 145/60
[2022-11-03] MEDS: AmLODIPine BESYLATE 5 MG TABLET PO SCH ×2 (09:42→16:11)
[2022-11-03] MEDS: MULTIVITAMINS WITH MINERALS, THERAPEUTIC TABLET PO SCH (09:42)
[2022-11-03] MEDS: DULoxetine HCL 60 MG CAPSULE PO SCH (09:42)
[2022-11-03] MEDS: OMEGA-3/DHA/EPA/FISH OIL 1,000 MG CAPSULE PO SCH (09:42)
[2022-11-03] MEDS: METOPROLOL TARTRATE 25 MG TABLET PO SCH ×2 (09:42→16:11)
[2022-11-03] MEDS: PANTOPRAZOLE SODIUM 40 MG DR TABLET PO SCH (09:42)
[2022-11-03 16:12] VITALS: BP 137/82
[2022-11-03] MEDS: OLANZapine 10 MG RAPDIS TABLET PO SCH (20:49)
[2022-11-03] MEDS: VALPROIC ACID 250 MG/5 ML SOLUTION UDCUP PO SCH (20:50)
[2022-11-03] MEDS: MELATONIN 5 MG TABLET PO SCH (20:50)
[2022-11-04 06:34] LABS: COVID AG,FIA SOURCE NASAL SWAB
[2022-11-04 08:48] VITALS: BP 123/84
[2022-11-04] MEDS: MULTIVITAMINS WITH MINERALS, THERAPEUTIC TABLET PO SCH (08:59)
[2022-11-04] MEDS: DULoxetine HCL 60 MG CAPSULE PO SCH (08:59)
[2022-11-04] MEDS: OMEGA-3/DHA/EPA/FISH OIL 1,000 MG CAPSULE PO SCH (08:59)
[2022-11-04] MEDS: AmLODIPine BESYLATE 5 MG TABLET PO SCH ×2 (09:00→16:46)
[2022-11-04] MEDS: PANTOPRAZOLE SODIUM 40 MG DR TABLET PO SCH (09:00)
[2022-11-04] MEDS: METOPROLOL TARTRATE 25 MG TABLET PO SCH ×2 (09:00→16:46)
[2022-11-04 16:12] VITALS: BP 108/78
[2022-11-04] MEDS: VALPROIC ACID 250 MG/5 ML SOLUTION UDCUP PO SCH (20:48)
[2022-11-04] MEDS: MELATONIN 5 MG TABLET PO SCH (20:48)
[2022-11-04] MEDS: OLANZapine 10 MG RAPDIS TABLET PO SCH (20:48)
[2022-11-05 04:44] VITALS: BP 149/91
[2022-11-05] MEDS: ACETAMINOPHEN 325 MG TABLET PO PRN (04:55)
[2022-11-05 08:29] VITALS: BP 127/77
[2022-11-05] MEDS: MULTIVITAMINS WITH MINERALS, THERAPEUTIC TABLET PO SCH (09:02)
[2022-11-05] MEDS: OMEGA-3/DHA/EPA/FISH OIL 1,000 MG CAPSULE PO SCH (09:02)
[2022-11-05] MEDS: DULoxetine HCL 60 MG CAPSULE PO SCH (09:02)
[2022-11-05] MEDS: METOPROLOL TARTRATE 25 MG TABLET PO SCH ×2 (09:03→16:37)
[2022-11-05] MEDS: PANTOPRAZOLE SODIUM 40 MG DR TABLET PO SCH (09:04)
[2022-11-05] MEDS: AmLODIPine BESYLATE 5 MG TABLET PO SCH ×2 (09:04→16:38)
[2022-11-05 17:09] VITALS: BP 149/92
[2022-11-05] MEDS: OLANZapine 10 MG RAPDIS TABLET PO SCH (20:28)
[2022-11-05] MEDS: VALPROIC ACID 250 MG/5 ML SOLUTION UDCUP PO SCH (20:28)
[2022-11-05] MEDS: MELATONIN 5 MG TABLET PO SCH (20:29)
[2022-11-06] MEDS: MULTIVITAMINS WITH MINERALS, THERAPEUTIC TABLET PO SCH (08:22)
[2022-11-06] MEDS: DULoxetine HCL 60 MG CAPSULE PO SCH (08:22)
[2022-11-06] MEDS: OMEGA-3/DHA/EPA/FISH OIL 1,000 MG CAPSULE PO SCH (08:22)
[2022-11-06] MEDS: PANTOPRAZOLE SODIUM 40 MG DR TABLET PO SCH (08:22)
[2022-11-06] MEDS: AmLODIPine BESYLATE 5 MG TABLET PO SCH ×2 (08:22→16:54)
[2022-11-06] MEDS: METOPROLOL TARTRATE 25 MG TABLET PO SCH ×2 (08:23→16:54)
[2022-11-06 09:26] VITALS: BP 119/73
[2022-11-06 16:18] VITALS: BP 118/69
[2022-11-06] MEDS: MELATONIN 5 MG TABLET PO SCH (20:24)
[2022-11-06] MEDS: OLANZapine 10 MG RAPDIS TABLET PO SCH (20:24)
[2022-11-06] MEDS: VALPROIC ACID 250 MG/5 ML SOLUTION UDCUP PO SCH (20:24)
[2022-11-07] MEDS: PANTOPRAZOLE SODIUM 40 MG DR TABLET PO SCH (08:10)
[2022-11-07] MEDS: AmLODIPine BESYLATE 5 MG TABLET PO SCH ×2 (08:10→16:37)
[2022-11-07] MEDS: MULTIVITAMINS WITH MINERALS, THERAPEUTIC TABLET PO SCH (08:10)
[2022-11-07] MEDS: DULoxetine HCL 60 MG CAPSULE PO SCH (08:10)
[2022-11-07] MEDS: OMEGA-3/DHA/EPA/FISH OIL 1,000 MG CAPSULE PO SCH (08:11)
[2022-11-07] MEDS: METOPROLOL TARTRATE 25 MG TABLET PO SCH ×2 (08:13→16:37)
[2022-11-07 09:25] VITALS: BP 127/82
[2022-11-07 16:51] VITALS: BP 122/80
[2022-11-07] MEDS: VALPROIC ACID 250 MG/5 ML SOLUTION UDCUP PO SCH (20:51)
[2022-11-07] MEDS: OLANZapine 10 MG RAPDIS TABLET PO SCH (20:51)
[2022-11-07] MEDS: MELATONIN 5 MG TABLET PO SCH (20:52)
[2022-11-08] MEDS: OMEGA-3/DHA/EPA/FISH OIL 1,000 MG CAPSULE PO SCH (08:12)
[2022-11-08] MEDS: METOPROLOL TARTRATE 25 MG TABLET PO SCH ×2 (08:12→16:54)
[2022-11-08] MEDS: AmLODIPine BESYLATE 5 MG TABLET PO SCH ×2 (08:12→16:54)
[2022-11-08] MEDS: PANTOPRAZOLE SODIUM 40 MG DR TABLET PO SCH (08:12)
[2022-11-08] MEDS: MULTIVITAMINS WITH MINERALS, THERAPEUTIC TABLET PO SCH (08:12)
[2022-11-08] MEDS: DULoxetine HCL 60 MG CAPSULE PO SCH (08:13)
[2022-11-08 08:24] VITALS: BP 151/90
[2022-11-08 16:25] VITALS: BP 125/85
[2022-11-08] MEDS: OLANZapine 10 MG RAPDIS TABLET PO SCH (20:48)
[2022-11-08] MEDS: MELATONIN 5 MG TABLET PO SCH (20:49)
[2022-11-08] MEDS: VALPROIC ACID 250 MG/5 ML SOLUTION UDCUP PO SCH (20:50)
[2022-11-09 06:56] VITALS: BP 128/80
[2022-11-09] MEDS: ACETAMINOPHEN 325 MG TABLET PO PRN (06:58)
[2022-11-09] MEDS: NICOTINE 7 MG/24 HOUR PATCH TD PRN (08:19)
[2022-11-09] MEDS: DULoxetine HCL 60 MG CAPSULE PO SCH (08:20)
[2022-11-09] MEDS: MULTIVITAMINS WITH MINERALS, THERAPEUTIC TABLET PO SCH (08:20)
[2022-11-09] MEDS: OMEGA-3/DHA/EPA/FISH OIL 1,000 MG CAPSULE PO SCH (08:20)
[2022-11-09] MEDS: AmLODIPine BESYLATE 5 MG TABLET PO SCH ×2 (08:20→16:15)
[2022-11-09] MEDS: PANTOPRAZOLE SODIUM 40 MG DR TABLET PO SCH (08:21)
[2022-11-09] MEDS: METOPROLOL TARTRATE 25 MG TABLET PO SCH ×2 (08:22→16:15)
[2022-11-09 09:46] VITALS: BP 125/85
[2022-11-09 16:20] VITALS: BP 129/67
[2022-11-09] MEDS: OLANZapine 10 MG RAPDIS TABLET PO SCH (20:57)
[2022-11-09] MEDS: VALPROIC ACID 250 MG/5 ML SOLUTION UDCUP PO SCH (20:58)
[2022-11-09] MEDS: MELATONIN 5 MG TABLET PO SCH (20:59)
[2022-11-10] MEDS: PANTOPRAZOLE SODIUM 40 MG DR TABLET PO SCH (08:23)
[2022-11-10] MEDS: METOPROLOL TARTRATE 25 MG TABLET PO SCH ×2 (08:23→16:35)
[2022-11-10] MEDS: DULoxetine HCL 60 MG CAPSULE PO SCH (08:23)
[2022-11-10] MEDS: OMEGA-3/DHA/EPA/FISH OIL 1,000 MG CAPSULE PO SCH (08:23)
[2022-11-10] MEDS: AmLODIPine BESYLATE 5 MG TABLET PO SCH ×2 (08:23→16:35)
[2022-11-10] MEDS: MULTIVITAMINS WITH MINERALS, THERAPEUTIC TABLET PO SCH (08:23)
[2022-11-10 08:58] VITALS: BP 113/77
[2022-11-10 16:10] VITALS: BP 123/81
[2022-11-10] MEDS: VALPROIC ACID 250 MG/5 ML SOLUTION UDCUP PO SCH (20:55)
[2022-11-10] MEDS: OLANZapine 10 MG RAPDIS TABLET PO SCH (20:56)
[2022-11-10] MEDS: MELATONIN 5 MG TABLET PO SCH (20:56)
[2022-11-11 07:32] LABS: COVID AG,FIA SOURCE NASAL SWAB
[2022-11-11] MEDS: AmLODIPine BESYLATE 5 MG TABLET PO SCH ×2 (08:14→17:00)
[2022-11-11] MEDS: PANTOPRAZOLE SODIUM 40 MG DR TABLET PO SCH (08:14)
[2022-11-11] MEDS: DULoxetine HCL 60 MG CAPSULE PO SCH (08:14)
[2022-11-11] MEDS: OMEGA-3/DHA/EPA/FISH OIL 1,000 MG CAPSULE PO SCH (08:14)
[2022-11-11] MEDS: MULTIVITAMINS WITH MINERALS, THERAPEUTIC TABLET PO SCH (08:14)
[2022-11-11] MEDS: METOPROLOL TARTRATE 25 MG TABLET PO SCH ×2 (08:14→17:00)
[2022-11-11 08:52] VITALS: BP 138/84
[2022-11-11 16:41] VITALS: BP 100/70
[2022-11-11] MEDS: OLANZapine 10 MG RAPDIS TABLET PO SCH (20:53)
[2022-11-11] MEDS: MELATONIN 5 MG TABLET PO SCH (20:54)
[2022-11-11] MEDS: VALPROIC ACID 250 MG/5 ML SOLUTION UDCUP PO SCH (20:54)
[2022-11-12] MEDS: OMEGA-3/DHA/EPA/FISH OIL 1,000 MG CAPSULE PO SCH (08:24)
[2022-11-12] MEDS: MULTIVITAMINS WITH MINERALS, THERAPEUTIC TABLET PO SCH (08:24)
[2022-11-12] MEDS: AmLODIPine BESYLATE 5 MG TABLET PO SCH ×2 (08:24→16:32)
[2022-11-12] MEDS: PANTOPRAZOLE SODIUM 40 MG DR TABLET PO SCH (08:24)
[2022-11-12] MEDS: DULoxetine HCL 60 MG CAPSULE PO SCH (08:24)
[2022-11-12] MEDS: METOPROLOL TARTRATE 25 MG TABLET PO SCH ×2 (08:24→16:32)
[2022-11-12 08:30] VITALS: BP 143/87
[2022-11-12 16:22] VITALS: BP 140/81
[2022-11-12] MEDS: VALPROIC ACID 250 MG/5 ML SOLUTION UDCUP PO SCH (20:18)
[2022-11-12] MEDS: MELATONIN 5 MG TABLET PO SCH (20:18)
[2022-11-12] MEDS: OLANZapine 10 MG RAPDIS TABLET PO SCH (20:18)
[2022-11-13 04:20] VITALS: BP 147/90
[2022-11-13] MEDS: ACETAMINOPHEN 325 MG TABLET PO PRN ×2 (04:27→23:36)
[2022-11-13 08:20] VITALS: BP 144/86
[2022-11-13] MEDS: AmLODIPine BESYLATE 5 MG TABLET PO SCH ×2 (09:37→16:08)
[2022-11-13] MEDS: MULTIVITAMINS WITH MINERALS, THERAPEUTIC TABLET PO SCH (09:37)
[2022-11-13] MEDS: PANTOPRAZOLE SODIUM 40 MG DR TABLET PO SCH (09:37)
[2022-11-13] MEDS: OMEGA-3/DHA/EPA/FISH OIL 1,000 MG CAPSULE PO SCH (09:37)
[2022-11-13] MEDS: DULoxetine HCL 60 MG CAPSULE PO SCH (09:37)
[2022-11-13] MEDS: METOPROLOL TARTRATE 25 MG TABLET PO SCH ×2 (09:37→16:08)
[2022-11-13 16:27] VITALS: BP 138/71
[2022-11-13] MEDS: OLANZapine 10 MG RAPDIS TABLET PO SCH (20:24)
[2022-11-13] MEDS: MELATONIN 5 MG TABLET PO SCH (20:24)
[2022-11-13] MEDS: VALPROIC ACID 250 MG/5 ML SOLUTION UDCUP PO SCH (20:25)
[2022-11-13 23:33] VITALS: BP 108/60
[2022-11-14] MEDS: DULoxetine HCL 60 MG CAPSULE PO SCH (08:33)
[2022-11-14] MEDS: METOPROLOL TARTRATE 25 MG TABLET PO SCH ×2 (08:33→16:34)
[2022-11-14] MEDS: AmLODIPine BESYLATE 5 MG TABLET PO SCH ×2 (08:33→16:34)
[2022-11-14] MEDS: OMEGA-3/DHA/EPA/FISH OIL 1,000 MG CAPSULE PO SCH (08:33)
[2022-11-14] MEDS: MULTIVITAMINS WITH MINERALS, THERAPEUTIC TABLET PO SCH (08:33)
[2022-11-14] MEDS: PANTOPRAZOLE SODIUM 40 MG DR TABLET PO SCH (08:33)
[2022-11-14 09:34] VITALS: BP 143/86
[2022-11-14 16:17] VITALS: BP 130/79
[2022-11-14] MEDS: MELATONIN 5 MG TABLET PO SCH (20:39)
[2022-11-14] MEDS: VALPROIC ACID 250 MG/5 ML SOLUTION UDCUP PO SCH (20:39)
[2022-11-14] MEDS: OLANZapine 10 MG RAPDIS TABLET PO SCH (20:39)
[2022-11-15 08:26] VITALS: BP 110/60
[2022-11-15] MEDS: AmLODIPine BESYLATE 5 MG TABLET PO SCH ×2 (09:17→16:47)
[2022-11-15] MEDS: MULTIVITAMINS WITH MINERALS, THERAPEUTIC TABLET PO SCH (09:17)
[2022-11-15] MEDS: PANTOPRAZOLE SODIUM 40 MG DR TABLET PO SCH (09:17)
[2022-11-15] MEDS: OMEGA-3/DHA/EPA/FISH OIL 1,000 MG CAPSULE PO SCH (09:17)
[2022-11-15] MEDS: DULoxetine HCL 60 MG CAPSULE PO SCH (09:17)
[2022-11-15] MEDS: METOPROLOL TARTRATE 25 MG TABLET PO SCH ×2 (09:18→16:47)
[2022-11-15 16:10] VITALS: BP 125/82
[2022-11-15] MEDS: VALPROIC ACID 250 MG/5 ML SOLUTION UDCUP PO SCH (21:04)
[2022-11-15] MEDS: OLANZapine 10 MG RAPDIS TABLET PO SCH (21:05)
[2022-11-15] MEDS: MELATONIN 5 MG TABLET PO SCH (21:05)
[2022-11-15] MEDS: ZOLPIDEM TARTRATE 10 MG TABLET PO PRN (21:59)
[2022-11-16 08:00] VITALS: BP 105/71
[2022-11-16] MEDS: OMEGA-3/DHA/EPA/FISH OIL 1,000 MG CAPSULE PO SCH (09:13)
[2022-11-16] MEDS: METOPROLOL TARTRATE 25 MG TABLET PO SCH ×2 (09:13→17:25)
[2022-11-16] MEDS: AmLODIPine BESYLATE 5 MG TABLET PO SCH ×2 (09:13→17:25)
[2022-11-16] MEDS: DULoxetine HCL 60 MG CAPSULE PO SCH (09:13)
[2022-11-16] MEDS: MULTIVITAMINS WITH MINERALS, THERAPEUTIC TABLET PO SCH (09:13)
[2022-11-16] MEDS: ACETAMINOPHEN 325 MG TABLET PO PRN (09:13)
[2022-11-16] MEDS: PANTOPRAZOLE SODIUM 40 MG DR TABLET PO SCH (09:13)
[2022-11-16] MEDS: DICLOFENAC SODIUM 1% 100 GM GEL [4GM] TP PRN (09:27)
[2022-11-16 16:00] VITALS: BP 114/72
[2022-11-16] MEDS: VALPROIC ACID 250 MG/5 ML SOLUTION UDCUP PO SCH (20:19)
[2022-11-16] MEDS: MELATONIN 5 MG TABLET PO SCH (20:19)
[2022-11-16] MEDS: OLANZapine 10 MG RAPDIS TABLET PO SCH (20:20)
[2022-11-17] MEDS: ACETAMINOPHEN 325 MG TABLET PO PRN (03:22)
[2022-11-17 03:30] VITALS: BP 110/50
[2022-11-17 08:06] VITALS: BP 136/96
[2022-11-17] MEDS: METOPROLOL TARTRATE 25 MG TABLET PO SCH ×2 (09:49→17:48)
[2022-11-17] MEDS: MULTIVITAMINS WITH MINERALS, THERAPEUTIC TABLET PO SCH (09:49)
[2022-11-17] MEDS: PANTOPRAZOLE SODIUM 40 MG DR TABLET PO SCH (09:49)
[2022-11-17] MEDS: AmLODIPine BESYLATE 5 MG TABLET PO SCH ×2 (09:50→17:48)
[2022-11-17] MEDS: DULoxetine HCL 60 MG CAPSULE PO SCH (09:50)
[2022-11-17] MEDS: OMEGA-3/DHA/EPA/FISH OIL 1,000 MG CAPSULE PO SCH (09:50)
[2022-11-17 16:00] VITALS: BP 113/67
[2022-11-17] MEDS: VALPROIC ACID 250 MG/5 ML SOLUTION UDCUP PO SCH (20:45)
[2022-11-17] MEDS: OLANZapine 10 MG RAPDIS TABLET PO SCH (20:46)
[2022-11-17] MEDS: MELATONIN 5 MG TABLET PO SCH (20:49)
[2022-11-18] MEDS: MULTIVITAMINS WITH MINERALS, THERAPEUTIC TABLET PO SCH (08:58)
[2022-11-18] MEDS: METOPROLOL TARTRATE 25 MG TABLET PO SCH ×2 (08:58→16:52)
[2022-11-18] MEDS: AmLODIPine BESYLATE 5 MG TABLET PO SCH ×2 (08:58→16:52)
[2022-11-18] MEDS: DULoxetine HCL 60 MG CAPSULE PO SCH (08:58)
[2022-11-18] MEDS: OMEGA-3/DHA/EPA/FISH OIL 1,000 MG CAPSULE PO SCH (08:58)
[2022-11-18] MEDS: PANTOPRAZOLE SODIUM 40 MG DR TABLET PO SCH (08:59)
[2022-11-18 09:16] VITALS: BP 153/99
[2022-11-18 11:35] LABS: COVID AG,FIA SOURCE NASAL SWAB
[2022-11-18] MEDS: DICLOFENAC SODIUM 1% 100 GM GEL [4GM] TP PRN (13:05)
[2022-11-18 16:00] VITALS: BP 143/81
[2022-11-18] MEDS: MELATONIN 5 MG TABLET PO SCH (20:18)
[2022-11-18] MEDS: VALPROIC ACID 250 MG/5 ML SOLUTION UDCUP PO SCH (20:18)
[2022-11-18] MEDS: OLANZapine 10 MG RAPDIS TABLET PO SCH (20:18)
[2022-11-19] MEDS: DULoxetine HCL 60 MG CAPSULE PO SCH (08:34)
[2022-11-19] MEDS: MULTIVITAMINS WITH MINERALS, THERAPEUTIC TABLET PO SCH (08:34)
[2022-11-19] MEDS: METOPROLOL TARTRATE 25 MG TABLET PO SCH ×2 (08:34→17:07)
[2022-11-19] MEDS: AmLODIPine BESYLATE 5 MG TABLET PO SCH ×2 (08:34→17:07)
[2022-11-19] MEDS: OMEGA-3/DHA/EPA/FISH OIL 1,000 MG CAPSULE PO SCH (08:34)
[2022-11-19] MEDS: PANTOPRAZOLE SODIUM 40 MG DR TABLET PO SCH (08:34)
[2022-11-19 10:49] LABS: BASOPHILS % (AUTO) 0.3 % (0.0-2.0); EOSINOPHILS % (AUTO) 0.1 % (1.0-6.0); HEMATOCRIT 34.9 % (36-46); HEMOGLOBIN 11.2 g/dL (12.0-16.0); LYMPHOCYTES # (AUTO) 1.5 K/uL (1.0-4.8); LYMPHOCYTES % (AUTO) 9.3 % (22.0-44.0); MEAN CORPUSCULAR HEMOGLOBIN 27.2 pg (26.0-34.0); MEAN CORPUSCULAR HGB CONC 31.9 G/dL (31.0-37.0); MEAN CORPUSCULAR VOLUME 85 fL (80-100); MONOCYTES # (AUTO) 2.6 K/uL (0.1-1.0); MONOCYTES % (AUTO) 16.2 % (2.0-9.0); NEUTROPHILS % (AUTO) 74.1 % (40.0-70.0); PLATELET COUNT (AUTO) 438 K/uL (150-450); RED CELL DISTRIBUTION WIDTH 14.6 % (11.5-14.5)
[2022-11-19 11:11] LABS: CALCIUM, TOTAL 9.9 mg/dL (8.8-10.5); CREATININE 2.6 mg/dL (0.60-1.30)
[2022-11-19 11:17] LABS: ALBUMIN 2.8 g/dL (3.4-5.0); BILIRUBIN,TOTAL 1.7 mg/dL (0.1-1.0); TOTAL PROTEIN, SERUM 9.4 g/dL (6.4-8.2)
[2022-11-19 13:57] LABS: BILIRUBIN,DIRECT 1.1 mg/dL (0.00-0.20); BILIRUBIN,TOTAL 1.7 mg/dL (0.1-1.0)
[2022-11-19 15:59] LABS: COVID AG,FIA SOURCE NASOPHARYNGEAL
[2022-11-19 16:33] VITALS: BP 134/86
[2022-11-19 16:48] LABS: INFLUENZA TYPE A NEGATIVE FOR TYPE A (NEGATIVE); INFLUENZA TYPE B NEGATIVE FOR TYPE B (NEGATIVE)
[2022-11-19] MEDS ORDERED: SODIUM CHLORIDE 0.9% 1,000 ML IV SCH (19:00)
[2022-11-19] MEDS: MELATONIN 5 MG TABLET PO SCH (20:59)
[2022-11-19] MEDS: OLANZapine 10 MG RAPDIS TABLET PO SCH (20:59)
[2022-11-19] MEDS: VALPROIC ACID 250 MG/5 ML SOLUTION UDCUP PO SCH (21:00)
== END 2022-11-19 22:23 | disposition short-term general hospital (02) | DRG 750 ==
LOC: 3EI 18:30
PROVIDERS: ADMIT Psychiatry & Neurology Psychiatry; ATTEND Psychiatry & Neurology Psychiatry
DX: F25.0 Schizoaffective disorder, bipolar type (principal); I13.0 Hypertensive heart and chronic kidney disease with heart failure and stage 1 through stage 4 chronic kidney disease, or unspecified chronic kidney disease; E87.20 Acidosis, unspecified; R65.10 Systemic inflammatory response syndrome (SIRS) of non-infectious origin without acute organ dysfunction; N17.9 Acute kidney failure, unspecified; I50.9 Heart failure, unspecified; E87.1 Hypo-osmolality and hyponatremia; R45.851 Suicidal ideations; J44.9 Chronic obstructive pulmonary disease, unspecified; F15.10 Other stimulant abuse, uncomplicated; N18.9 Chronic kidney disease, unspecified; R73.03 Prediabetes; E66.9 Obesity, unspecified; F41.9 Anxiety disorder, unspecified; G47.00 Insomnia, unspecified; H54.8 Legal blindness, as defined in USA; I34.0 Nonrheumatic mitral (valve) insufficiency; Z20.822 Contact with and (suspected) exposure to COVID-19; Z55.9 Problems related to education and literacy, unspecified; Z72.89 Other problems related to lifestyle; Z59.00 Homelessness unspecified; Z63.9 Problem related to primary support group, unspecified; Z65.3 Problems related to other legal circumstances; Z87.891 Personal history of nicotine dependence; Z91.14 Patient's other noncompliance with medication regimen; Z91.81 History of falling; Z98.42 Cataract extraction status, left eye; Z99.3 Dependence on wheelchair; Z63.8 Other specified problems related to primary support group; Z68.36 Body mass index [BMI] 36.0-36.9, adult
CPT/HCPCS: 71046; 80048; 80053; 80061; 80164; 80307; 81001; 82140; 82247; 82248; 83036; 83880; 84132; 85025; 87040; 87081; 87086; 87804; 93005; 93970; 97165; 97530; 97535; J3010; Q9967; 36415-L1; 36415-TC; U0003

== ENCOUNTER 2022-11-25 18:18 | Inpatient (IN) | payer MEDICAID, OTHER ==
[~2022-11-25] VITALS: Ht 154.9 cm; Wt 91.2 kg
[~2022-11-25 18:18] MED LIST changes: +ALBU18HF12 IH; -ALBU8HFA IH; -PALI39DI IM; -RISP1TAB48 PO
[2022-11-25] MEDS ORDERED: MAG HYDROX/AL HYDROX/SIMETH ES 30 ML SUSPENSION UDCUP PO PRN (22:45)
[2022-11-25] MEDS ORDERED: LOPERAMIDE HCL 2 MG CAPSULE PO PRN (22:45)
[2022-11-25] MEDS ORDERED: PROMETHAZINE HCL 25 MG TABLET PO PRN (22:45)
[2022-11-25] MEDS ORDERED: MAGNESIUM HYDROXIDE SUSPENSION 30 ML UDCUP PO PRN (22:45)
[2022-11-25 23:58] VITALS: BP 145/81
[2022-11-26] MEDS ORDERED: ONDANSETRON HCL 4 MG TABLET PO PRN (00:15)
[2022-11-26 00:29] VITALS: BP 145/81
[2022-11-26] MEDS: MENTHOL/ZINC OXIDE 113 GM OINTMENT TP SCH ×3 (08:50→21:16)
[2022-11-26] MEDS: METOPROLOL TARTRATE 25 MG TABLET PO SCH (08:50)
[2022-11-26] MEDS: PredniSONE 20 MG TABLET PO SCH (08:50)
[2022-11-26 08:56] VITALS: BP 120/71
[2022-11-26] MEDS ORDERED: METOPROLOL TARTRATE 25 MG TABLET PO SCH (09:00)
[2022-11-26] MEDS ORDERED: LORazepam 1 MG TABLET PO PRN (12:30)
[2022-11-26] MEDS ORDERED: ZOLPIDEM TARTRATE 10 MG TABLET PO PRN (12:30)
[2022-11-26] MEDS ORDERED: GuaiFENesin/D-METHORPHAN [SUGAR-FREE] 200-20MG/10 ML SYRUP UDCUP PO PRN (12:30)
[2022-11-26] MEDS ORDERED: OLANZapine 5 MG RAPDIS TABLET PO PRN (12:30)
[2022-11-26] MEDS ORDERED: LOPERAMIDE HCL 2 MG CAPSULE PO PRN (12:30)
[2022-11-26] MEDS ORDERED: HydrOXYzine PAMOATE 50 MG CAPSULE PO PRN (12:30)
[2022-11-26] MEDS ORDERED: PROMETHAZINE HCL 25 MG TABLET PO PRN (12:30)
[2022-11-26] MEDS: THIAMINE 100 MG TABLET PO SCH (16:29)
[2022-11-26 16:50] VITALS: BP 127/70
[2022-11-26] MEDS ORDERED: OLANZapine 5 MG RAPDIS TABLET PO SCH (21:00)
[2022-11-26] MEDS: DIVALPROEX SODIUM 500 MG ER TABLET PO SCH (21:16)
[2022-11-26] MEDS: MELATONIN 5 MG TABLET PO SCH (21:17)
[2022-11-27 08:38] VITALS: BP 139/80
[2022-11-27] MEDS: FOLIC ACID 1 MG TABLET PO SCH (08:54)
[2022-11-27] MEDS: MULTIVITAMINS WITH MINERALS, THERAPEUTIC TABLET PO SCH (08:54)
[2022-11-27] MEDS: THIAMINE 100 MG TABLET PO SCH ×2 (08:54→16:16)
[2022-11-27] MEDS: PredniSONE 20 MG TABLET PO SCH (08:54)
[2022-11-27] MEDS: OMEGA-3/DHA/EPA/FISH OIL 1,000 MG CAPSULE PO SCH (08:54)
[2022-11-27] MEDS: METOPROLOL TARTRATE 25 MG TABLET PO SCH (08:54)
[2022-11-27] MEDS: NALTREXONE HCL 50 MG TABLET PO SCH (08:55)
[2022-11-27] MEDS: MENTHOL/ZINC OXIDE 113 GM OINTMENT TP SCH ×3 (09:00→21:22)
[2022-11-27] MEDS ORDERED: GABAPENTIN 300 MG CAPSULE PO PRN (15:30)
[2022-11-27 16:27] VITALS: BP 119/73
[2022-11-27] MEDS: DIVALPROEX SODIUM 500 MG ER TABLET PO SCH (21:07)
[2022-11-27] MEDS: OLANZapine 10 MG RAPDIS TABLET PO SCH (21:08)
[2022-11-27] MEDS: MELATONIN 5 MG TABLET PO SCH (21:09)
[2022-11-28] MEDS: MENTHOL/ZINC OXIDE 113 GM OINTMENT TP SCH ×3 (08:24→20:19)
[2022-11-28] MEDS: METOPROLOL TARTRATE 25 MG TABLET PO SCH (08:24)
[2022-11-28] MEDS: THIAMINE 100 MG TABLET PO SCH ×2 (08:24→16:55)
[2022-11-28] MEDS: MULTIVITAMINS WITH MINERALS, THERAPEUTIC TABLET PO SCH (08:24)
[2022-11-28] MEDS: FOLIC ACID 1 MG TABLET PO SCH (08:24)
[2022-11-28] MEDS: OMEGA-3/DHA/EPA/FISH OIL 1,000 MG CAPSULE PO SCH (08:24)
[2022-11-28] MEDS: NALTREXONE HCL 50 MG TABLET PO SCH (08:25)
[2022-11-28] MEDS: PredniSONE 20 MG TABLET PO SCH (08:26)
[2022-11-28 08:46] LABS: BASOPHILS % (AUTO) 0.4 % (0.0-2.0); EOSINOPHILS % (AUTO) 1.6 % (1.0-6.0); HEMATOCRIT 32.4 % (36-46); HEMOGLOBIN 10.3 g/dL (12.0-16.0); LYMPHOCYTES # (AUTO) 2.9 K/uL (1.0-4.8); LYMPHOCYTES % (AUTO) 18.3 % (22.0-44.0); MEAN CORPUSCULAR HGB CONC 31.7 G/dL (31.0-37.0); MEAN CORPUSCULAR VOLUME 85 fL (80-100); MONOCYTES # (AUTO) 0.9 K/uL (0.1-1.0); MONOCYTES % (AUTO) 5.5 % (2.0-9.0); NEUTROPHILS # (AUTO) 11.9 K/uL (1.8-7.7); NEUTROPHILS % (AUTO) 74.2 % (40.0-70.0); RED CELL DISTRIBUTION WIDTH 15.5 % (11.5-14.5)
[2022-11-28 08:51] VITALS: BP 125/74
[2022-11-28 08:54] LABS: PLATELET COUNT (AUTO) 963 K/uL (150-450)
[2022-11-28] MEDS ORDERED: CloZAPine 25 MG TABLET PO SCH (09:00)
[2022-11-28 16:00] VITALS: BP 120/87
[2022-11-28] MEDS: OLANZapine 10 MG RAPDIS TABLET PO SCH (20:18)
[2022-11-28] MEDS: MELATONIN 5 MG TABLET PO SCH (20:18)
[2022-11-28] MEDS: DIVALPROEX SODIUM 500 MG ER TABLET PO SCH (20:18)
[2022-11-29] MEDS ORDERED: CloZAPine 25 MG TABLET PO SCH ×2 (09:00→21:00)
[2022-11-29] MEDS: FOLIC ACID 1 MG TABLET PO SCH (09:31)
[2022-11-29] MEDS: MENTHOL/ZINC OXIDE 113 GM OINTMENT TP SCH ×3 (09:31→20:43)
[2022-11-29] MEDS: NALTREXONE HCL 50 MG TABLET PO SCH (09:31)
[2022-11-29] MEDS: OMEGA-3/DHA/EPA/FISH OIL 1,000 MG CAPSULE PO SCH (09:31)
[2022-11-29] MEDS: MULTIVITAMINS WITH MINERALS, THERAPEUTIC TABLET PO SCH (09:31)
[2022-11-29] MEDS: PredniSONE 20 MG TABLET PO SCH (09:31)
[2022-11-29] MEDS: METOPROLOL TARTRATE 25 MG TABLET PO SCH (09:31)
[2022-11-29] MEDS: THIAMINE 100 MG TABLET PO SCH ×2 (09:31→17:13)
[2022-11-29 16:38] VITALS: BP 139/74
[2022-11-29] MEDS: DIVALPROEX SODIUM 500 MG ER TABLET PO SCH (20:43)
[2022-11-29] MEDS: MELATONIN 5 MG TABLET PO SCH (20:43)
[2022-11-29] MEDS: OLANZapine 10 MG RAPDIS TABLET PO SCH (20:43)
[2022-11-30 08:00] VITALS: BP 117/76
[2022-11-30] MEDS ORDERED: CloZAPine 25 MG TABLET PO SCH ×2 (09:00→21:00)
[2022-11-30] MEDS: METOPROLOL TARTRATE 25 MG TABLET PO SCH (09:17)
[2022-11-30] MEDS: MULTIVITAMINS WITH MINERALS, THERAPEUTIC TABLET PO SCH (09:17)
[2022-11-30] MEDS: OMEGA-3/DHA/EPA/FISH OIL 1,000 MG CAPSULE PO SCH (09:17)
[2022-11-30] MEDS: FOLIC ACID 1 MG TABLET PO SCH (09:17)
[2022-11-30] MEDS: NALTREXONE HCL 50 MG TABLET PO SCH (09:17)
[2022-11-30] MEDS: THIAMINE 100 MG TABLET PO SCH ×2 (09:17→16:53)
[2022-11-30] MEDS: PredniSONE 20 MG TABLET PO SCH (09:19)
[2022-11-30] MEDS: MENTHOL/ZINC OXIDE 113 GM OINTMENT TP SCH ×3 (09:19→21:00)
[2022-11-30 16:00] VITALS: BP 120/73
[2022-11-30] MEDS: DIVALPROEX SODIUM 500 MG ER TABLET PO SCH (20:59)
[2022-11-30] MEDS: OLANZapine 10 MG RAPDIS TABLET PO SCH (20:59)
[2022-11-30] MEDS: MELATONIN 5 MG TABLET PO SCH (21:00)
[2022-12-01 07:35] LABS: COVID AG,FIA SOURCE NASAL SWAB
[2022-12-01] MEDS: MULTIVITAMINS WITH MINERALS, THERAPEUTIC TABLET PO SCH (08:37)
[2022-12-01] MEDS: PredniSONE 20 MG TABLET PO SCH (08:37)
[2022-12-01] MEDS: FOLIC ACID 1 MG TABLET PO SCH (08:37)
[2022-12-01] MEDS: THIAMINE 100 MG TABLET PO SCH ×2 (08:37→16:03)
[2022-12-01] MEDS: OMEGA-3/DHA/EPA/FISH OIL 1,000 MG CAPSULE PO SCH (08:37)
[2022-12-01] MEDS: METOPROLOL TARTRATE 25 MG TABLET PO SCH (08:37)
[2022-12-01] MEDS: NALTREXONE HCL 50 MG TABLET PO SCH (08:37)
[2022-12-01] MEDS: MENTHOL/ZINC OXIDE 113 GM OINTMENT TP SCH ×3 (08:39→20:19)
[2022-12-01 08:53] VITALS: BP 147/92
[2022-12-01] MEDS ORDERED: CloZAPine 25 MG TABLET PO SCH (09:00)
[2022-12-01] MEDS: DIVALPROEX SODIUM 500 MG ER TABLET PO SCH (20:20)
[2022-12-01] MEDS: OLANZapine 10 MG RAPDIS TABLET PO SCH (20:20)
[2022-12-01] MEDS: MELATONIN 5 MG TABLET PO SCH (20:21)
[2022-12-02 07:26] LABS: BASOPHILS % (AUTO) 1.2 % (0.0-2.0); EOSINOPHILS % (AUTO) 1.4 % (1.0-6.0); HEMATOCRIT 41.1 % (36-46); HEMOGLOBIN 12.8 g/dL (12.0-16.0); LYMPHOCYTES # (AUTO) 4.8 K/uL (1.0-4.8); LYMPHOCYTES % (AUTO) 38.2 % (22.0-44.0); MEAN CORPUSCULAR HEMOGLOBIN 27.2 pg (26.0-34.0); MEAN CORPUSCULAR HGB CONC 31.2 G/dL (31.0-37.0); MEAN CORPUSCULAR VOLUME 87 fL (80-100); MONOCYTES # (AUTO) 0.5 K/uL (0.1-1.0); MONOCYTES % (AUTO) 3.9 % (2.0-9.0); NEUTROPHILS # (AUTO) 6.9 K/uL (1.8-7.7); NEUTROPHILS % (AUTO) 55.3 % (40.0-70.0); PLATELET COUNT (AUTO) 618 K/uL (150-450); RED BLOOD CELL COUNT(AUTO) 4.71 MIL/uL (4.00-5.20); RED CELL DISTRIBUTION WIDTH 16.6 % (11.5-14.5)
[2022-12-02 07:27] LABS: ALBUMIN 3.1 g/dL (3.4-5.0); BILIRUBIN,TOTAL 0.4 mg/dL (0.1-1.0); CALCIUM, TOTAL 9.9 mg/dL (8.8-10.5); CREATININE 1.74 mg/dL (0.60-1.30); POTASSIUM 4.7 mmol/L (3.5-5.1); TOTAL PROTEIN, SERUM 9.3 g/dL (6.4-8.2)
[2022-12-02] MEDS: OMEGA-3/DHA/EPA/FISH OIL 1,000 MG CAPSULE PO SCH (09:18)
[2022-12-02] MEDS: NALTREXONE HCL 50 MG TABLET PO SCH (09:18)
[2022-12-02] MEDS: MULTIVITAMINS WITH MINERALS, THERAPEUTIC TABLET PO SCH (09:18)
[2022-12-02] MEDS: METOPROLOL TARTRATE 25 MG TABLET PO SCH (09:18)
[2022-12-02] MEDS: FOLIC ACID 1 MG TABLET PO SCH (09:19)
[2022-12-02] MEDS: PredniSONE 20 MG TABLET PO SCH (09:19)
[2022-12-02] MEDS: THIAMINE 100 MG TABLET PO SCH ×2 (09:19→16:27)
[2022-12-02] MEDS: MENTHOL/ZINC OXIDE 113 GM OINTMENT TP SCH ×3 (09:20→20:47)
[2022-12-02 09:37] VITALS: BP 136/75
[2022-12-02] MEDS ORDERED: CloZAPine 25 MG TABLET PO SCH (13:00)
[2022-12-02 17:05] VITALS: BP 130/88
[2022-12-02] MEDS: DIVALPROEX SODIUM 500 MG ER TABLET PO SCH (20:46)
[2022-12-02] MEDS: OLANZapine 10 MG RAPDIS TABLET PO SCH (20:46)
[2022-12-02] MEDS: MELATONIN 5 MG TABLET PO SCH (20:46)
[2022-12-03] MEDS: METOPROLOL TARTRATE 25 MG TABLET PO SCH (08:33)
[2022-12-03] MEDS: NALTREXONE HCL 50 MG TABLET PO SCH (08:33)
[2022-12-03] MEDS: MULTIVITAMINS WITH MINERALS, THERAPEUTIC TABLET PO SCH (08:33)
[2022-12-03] MEDS: FOLIC ACID 1 MG TABLET PO SCH (08:33)
[2022-12-03] MEDS: OMEGA-3/DHA/EPA/FISH OIL 1,000 MG CAPSULE PO SCH (08:33)
[2022-12-03] MEDS: THIAMINE 100 MG TABLET PO SCH ×2 (08:33→16:12)
[2022-12-03] MEDS: PredniSONE 20 MG TABLET PO SCH (08:34)
[2022-12-03] MEDS: MENTHOL/ZINC OXIDE 113 GM OINTMENT TP SCH ×3 (08:37→20:54)
[2022-12-03] MEDS ORDERED: CloZAPine 25 MG TABLET PO SCH ×3 (09:00→21:00)
[2022-12-03 09:47] VITALS: BP 144/85
[2022-12-03 16:19] VITALS: BP 100/67
[2022-12-03] MEDS: OLANZapine 10 MG RAPDIS TABLET PO SCH (20:54)
[2022-12-03] MEDS: DIVALPROEX SODIUM 500 MG ER TABLET PO SCH (20:54)
[2022-12-03] MEDS: MELATONIN 5 MG TABLET PO SCH (20:55)
[2022-12-03] MEDS ORDERED: CloZAPine 100 MG TABLET PO SCH (21:00)
[2022-12-04 08:50] VITALS: BP 129/74
[2022-12-04] MEDS ORDERED: CloZAPine 25 MG TABLET PO SCH ×3 (09:00→21:00)
[2022-12-04] MEDS: NALTREXONE HCL 50 MG TABLET PO SCH (09:50)
[2022-12-04] MEDS: FOLIC ACID 1 MG TABLET PO SCH (09:50)
[2022-12-04] MEDS: PredniSONE 20 MG TABLET PO SCH (09:51)
[2022-12-04] MEDS: METOPROLOL TARTRATE 25 MG TABLET PO SCH (09:51)
[2022-12-04] MEDS: OMEGA-3/DHA/EPA/FISH OIL 1,000 MG CAPSULE PO SCH (09:53)
[2022-12-04] MEDS: MULTIVITAMINS WITH MINERALS, THERAPEUTIC TABLET PO SCH (09:53)
[2022-12-04] MEDS: THIAMINE 100 MG TABLET PO SCH ×2 (09:53→16:25)
[2022-12-04] MEDS: MENTHOL/ZINC OXIDE 113 GM OINTMENT TP SCH ×3 (09:54→20:52)
[2022-12-04 16:22] VITALS: BP 130/81
[2022-12-04] MEDS: DIVALPROEX SODIUM 500 MG ER TABLET PO SCH (20:53)
[2022-12-04] MEDS: MELATONIN 5 MG TABLET PO SCH (20:53)
[2022-12-04] MEDS: OLANZapine 10 MG RAPDIS TABLET PO SCH (20:53)
[2022-12-04] MEDS ORDERED: CloZAPine 100 MG TABLET PO SCH (21:00)
[2022-12-05] MEDS ORDERED: CloZAPine 25 MG TABLET PO SCH (09:00)
[2022-12-05 09:19] VITALS: BP 158/89
[2022-12-05] MEDS: THIAMINE 100 MG TABLET PO SCH ×2 (09:32→15:54)
[2022-12-05] MEDS: FOLIC ACID 1 MG TABLET PO SCH (09:33)
[2022-12-05] MEDS: CloZAPine 25 MG TABLET PO SCH ×2 (09:33→20:37)
[2022-12-05] MEDS: NALTREXONE HCL 50 MG TABLET PO SCH (09:33)
[2022-12-05] MEDS: OMEGA-3/DHA/EPA/FISH OIL 1,000 MG CAPSULE PO SCH (09:33)
[2022-12-05] MEDS: PredniSONE 20 MG TABLET PO SCH (09:35)
[2022-12-05] MEDS: MULTIVITAMINS WITH MINERALS, THERAPEUTIC TABLET PO SCH (09:40)
[2022-12-05] MEDS: MENTHOL/ZINC OXIDE 113 GM OINTMENT TP SCH ×3 (09:40→20:36)
[2022-12-05] MEDS: METOPROLOL TARTRATE 25 MG TABLET PO SCH (09:41)
[2022-12-05 14:19] LABS: BASOPHILS % (AUTO) 0.3 % (0.0-2.0); HEMATOCRIT 41.3 % (36-46); LYMPHOCYTES # (AUTO) 4.2 K/uL (1.0-4.8); LYMPHOCYTES % (AUTO) 36.7 % (22.0-44.0); MEAN CORPUSCULAR HEMOGLOBIN 26.8 pg (26.0-34.0); MEAN CORPUSCULAR HGB CONC 31.5 G/dL (31.0-37.0); MEAN CORPUSCULAR VOLUME 85 fL (80-100); MONOCYTES # (AUTO) 0.4 K/uL (0.1-1.0); MONOCYTES % (AUTO) 3.4 % (2.0-9.0); NEUTROPHILS # (AUTO) 6.6 K/uL (1.8-7.7); NEUTROPHILS % (AUTO) 58.6 % (40.0-70.0); PLATELET COUNT (AUTO) 678 K/uL (150-450); RED BLOOD CELL COUNT(AUTO) 4.85 MIL/uL (4.00-5.20); RED CELL DISTRIBUTION WIDTH 16.5 % (11.5-14.5)
[2022-12-05 16:49] VITALS: BP 131/83
[2022-12-05] MEDS: DIVALPROEX SODIUM 500 MG ER TABLET PO SCH (20:36)
[2022-12-05] MEDS: MELATONIN 5 MG TABLET PO SCH (20:36)
[2022-12-05] MEDS: OLANZapine 5 MG RAPDIS TABLET PO SCH (20:37)
[2022-12-05] MEDS ORDERED: OLANZapine 5 MG RAPDIS TABLET PO SCH (21:00)
[2022-12-05] MEDS ORDERED: CloZAPine 100 MG TABLET PO SCH (21:00)
[2022-12-06] MEDS ORDERED: CloZAPine 100 MG TABLET PO SCH (09:00)
[2022-12-06 09:25] VITALS: BP 144/94
[2022-12-06] MEDS: FOLIC ACID 1 MG TABLET PO SCH (09:30)
[2022-12-06] MEDS: THIAMINE 100 MG TABLET PO SCH (09:30)
[2022-12-06] MEDS: MULTIVITAMINS WITH MINERALS, THERAPEUTIC TABLET PO SCH (09:31)
[2022-12-06] MEDS: METOPROLOL TARTRATE 25 MG TABLET PO SCH (09:31)
[2022-12-06] MEDS: CloZAPine 25 MG TABLET PO SCH ×2 (09:31→20:16)
[2022-12-06] MEDS: NALTREXONE HCL 50 MG TABLET PO SCH (09:31)
[2022-12-06] MEDS: OMEGA-3/DHA/EPA/FISH OIL 1,000 MG CAPSULE PO SCH (09:31)
[2022-12-06] MEDS: MENTHOL/ZINC OXIDE 113 GM OINTMENT TP SCH ×3 (09:32→20:15)
[2022-12-06 16:24] VITALS: BP 134/96
[2022-12-06] MEDS: OLANZapine 5 MG RAPDIS TABLET PO SCH (20:16)
[2022-12-06] MEDS: MELATONIN 5 MG TABLET PO SCH (20:16)
[2022-12-06] MEDS: DIVALPROEX SODIUM 500 MG ER TABLET PO SCH (20:16)
[2022-12-07] MEDS: METOPROLOL TARTRATE 25 MG TABLET PO SCH (08:49)
[2022-12-07] MEDS: MULTIVITAMINS WITH MINERALS, THERAPEUTIC TABLET PO SCH (08:49)
[2022-12-07] MEDS: NALTREXONE HCL 50 MG TABLET PO SCH (08:50)
[2022-12-07] MEDS: MENTHOL/ZINC OXIDE 113 GM OINTMENT TP SCH ×3 (08:50→21:04)
[2022-12-07] MEDS: OMEGA-3/DHA/EPA/FISH OIL 1,000 MG CAPSULE PO SCH (08:50)
[2022-12-07] MEDS ORDERED: CloZAPine 25 MG TABLET PO SCH (09:00)
[2022-12-07 09:04] VITALS: BP 114/77
[2022-12-07 16:18] VITALS: BP 154/91
[2022-12-07] MEDS ORDERED: CloZAPine 100 MG TABLET PO SCH (21:00)
[2022-12-07] MEDS: MELATONIN 5 MG TABLET PO SCH (21:00)
[2022-12-07] MEDS: DIVALPROEX SODIUM 500 MG ER TABLET PO SCH (21:03)
[2022-12-07] MEDS: OLANZapine 5 MG RAPDIS TABLET PO SCH (21:04)
[2022-12-08] MEDS: OMEGA-3/DHA/EPA/FISH OIL 1,000 MG CAPSULE PO SCH (08:14)
[2022-12-08] MEDS: NALTREXONE HCL 50 MG TABLET PO SCH (08:14)
[2022-12-08] MEDS: MENTHOL/ZINC OXIDE 113 GM OINTMENT TP SCH ×3 (08:15→20:18)
[2022-12-08] MEDS: MULTIVITAMINS WITH MINERALS, THERAPEUTIC TABLET PO SCH (08:15)
[2022-12-08] MEDS: METOPROLOL TARTRATE 25 MG TABLET PO SCH (08:15)
[2022-12-08] MEDS ORDERED: CloZAPine 25 MG TABLET PO SCH ×2 (09:00)
[2022-12-08 09:15] VITALS: BP 113/80
[2022-12-08 16:31] VITALS: BP 114/77
[2022-12-08] MEDS: MELATONIN 5 MG TABLET PO SCH (20:16)
[2022-12-08] MEDS: DIVALPROEX SODIUM 500 MG ER TABLET PO SCH (20:17)
[2022-12-08] MEDS: OLANZapine 5 MG RAPDIS TABLET PO SCH (20:18)
[2022-12-08] MEDS ORDERED: CloZAPine 100 MG TABLET PO SCH ×2 (21:00)
[2022-12-09 05:54] LABS: COVID AG,FIA SOURCE NASAL SWAB
[2022-12-09] MEDS: NALTREXONE HCL 50 MG TABLET PO SCH (08:45)
[2022-12-09] MEDS: OMEGA-3/DHA/EPA/FISH OIL 1,000 MG CAPSULE PO SCH (08:45)
[2022-12-09] MEDS: MENTHOL/ZINC OXIDE 113 GM OINTMENT TP SCH ×3 (08:46→20:52)
[2022-12-09] MEDS: MULTIVITAMINS WITH MINERALS, THERAPEUTIC TABLET PO SCH (08:46)
[2022-12-09] MEDS: METOPROLOL TARTRATE 25 MG TABLET PO SCH (08:46)
[2022-12-09] MEDS ORDERED: CloZAPine 25 MG TABLET PO SCH ×2 (09:00)
[2022-12-09 17:06] VITALS: BP 120/70
[2022-12-09] MEDS: DIVALPROEX SODIUM 500 MG ER TABLET PO SCH (20:50)
[2022-12-09] MEDS: CloZAPine 100 MG TABLET PO SCH (20:50)
[2022-12-09] MEDS: MELATONIN 5 MG TABLET PO SCH (20:51)
[2022-12-09] MEDS ORDERED: CloZAPine 100 MG TABLET PO SCH ×2 (21:00)
[2022-12-10] MEDS ORDERED: CloZAPine 100 MG TABLET PO SCH ×3 (09:00→21:00)
[2022-12-10] MEDS: NALTREXONE HCL 50 MG TABLET PO SCH (09:20)
[2022-12-10] MEDS: OMEGA-3/DHA/EPA/FISH OIL 1,000 MG CAPSULE PO SCH (09:20)
[2022-12-10] MEDS: MULTIVITAMINS WITH MINERALS, THERAPEUTIC TABLET PO SCH (09:21)
[2022-12-10] MEDS: MENTHOL/ZINC OXIDE 113 GM OINTMENT TP SCH ×3 (09:21→21:34)
[2022-12-10] MEDS: METOPROLOL TARTRATE 25 MG TABLET PO SCH (09:21)
[2022-12-10 09:35] VITALS: BP 107/75
[2022-12-10 09:36] VITALS: BP 107/75
[2022-12-10 16:17] VITALS: BP 121/78
[2022-12-10] MEDS: MELATONIN 5 MG TABLET PO SCH (21:33)
[2022-12-10] MEDS: DIVALPROEX SODIUM 500 MG ER TABLET PO SCH (21:33)
[2022-12-10] MEDS: CloZAPine 100 MG TABLET PO SCH (21:33)
[2022-12-11] MEDS: MENTHOL/ZINC OXIDE 113 GM OINTMENT TP SCH ×3 (08:14→21:31)
[2022-12-11] MEDS: OMEGA-3/DHA/EPA/FISH OIL 1,000 MG CAPSULE PO SCH (08:15)
[2022-12-11] MEDS: NALTREXONE HCL 50 MG TABLET PO SCH (08:15)
[2022-12-11] MEDS: MULTIVITAMINS WITH MINERALS, THERAPEUTIC TABLET PO SCH (08:15)
[2022-12-11] MEDS: METOPROLOL TARTRATE 25 MG TABLET PO SCH (08:15)
[2022-12-11 08:30] VITALS: BP 103/82
[2022-12-11 16:59] VITALS: BP 116/77
[2022-12-11] MEDS: MELATONIN 5 MG TABLET PO SCH (21:31)
[2022-12-11] MEDS: CloZAPine 100 MG TABLET PO SCH (21:31)
[2022-12-11] MEDS: DIVALPROEX SODIUM 500 MG ER TABLET PO SCH (21:31)
[2022-12-12] MEDS ORDERED: CloZAPine 25 MG TABLET PO SCH (09:00)
[2022-12-12] MEDS: METOPROLOL TARTRATE 25 MG TABLET PO SCH (09:00)
[2022-12-12] MEDS: MENTHOL/ZINC OXIDE 113 GM OINTMENT TP SCH ×3 (09:47→20:25)
[2022-12-12] MEDS: MULTIVITAMINS WITH MINERALS, THERAPEUTIC TABLET PO SCH (09:52)
[2022-12-12] MEDS: OMEGA-3/DHA/EPA/FISH OIL 1,000 MG CAPSULE PO SCH (09:52)
[2022-12-12] MEDS: NALTREXONE HCL 50 MG TABLET PO SCH (09:52)
[2022-12-12 15:34] LABS: BASOPHILS % (AUTO) 0.4 % (0.0-2.0); HEMATOCRIT 38.4 % (36-46); HEMOGLOBIN 12.2 g/dL (12.0-16.0); LYMPHOCYTES # (AUTO) 2.8 K/uL (1.0-4.8); MEAN CORPUSCULAR HGB CONC 31.6 G/dL (31.0-37.0); MEAN CORPUSCULAR VOLUME 85 fL (80-100); MONOCYTES # (AUTO) 2.2 K/uL (0.1-1.0); MONOCYTES % (AUTO) 13.6 % (2.0-9.0); PLATELET COUNT (AUTO) 228 K/uL (150-450); RED CELL DISTRIBUTION WIDTH 16.9 % (11.5-14.5)
[2022-12-12 17:51] VITALS: BP 111/74
[2022-12-12] MEDS: DIVALPROEX SODIUM 500 MG ER TABLET PO SCH (20:26)
[2022-12-12] MEDS: MELATONIN 5 MG TABLET PO SCH (20:26)
[2022-12-12] MEDS: CloZAPine 100 MG TABLET PO SCH (20:26)
[2022-12-12] MEDS ORDERED: CloZAPine 100 MG TABLET PO SCH (21:00)
[2022-12-13] MEDS ORDERED: CloZAPine 25 MG TABLET PO SCH (09:00)
[2022-12-13 09:26] VITALS: BP 106/67
[2022-12-13] MEDS: NALTREXONE HCL 50 MG TABLET PO SCH (10:22)
[2022-12-13] MEDS: OMEGA-3/DHA/EPA/FISH OIL 1,000 MG CAPSULE PO SCH (10:22)
[2022-12-13] MEDS: METOPROLOL TARTRATE 25 MG TABLET PO SCH (10:22)
[2022-12-13] MEDS: MULTIVITAMINS WITH MINERALS, THERAPEUTIC TABLET PO SCH (10:22)
[2022-12-13] MEDS: MENTHOL/ZINC OXIDE 113 GM OINTMENT TP SCH ×3 (10:23→20:48)
[2022-12-13 17:02] VITALS: BP 109/72
[2022-12-13] MEDS: DIVALPROEX SODIUM 500 MG ER TABLET PO SCH (20:47)
[2022-12-13] MEDS: CloZAPine 100 MG TABLET PO SCH (20:48)
[2022-12-13] MEDS: MELATONIN 5 MG TABLET PO SCH (20:48)
[2022-12-13] MEDS ORDERED: CloZAPine 100 MG TABLET PO SCH (21:00)
[2022-12-13 21:47] VITALS: BP 123/85
[2022-12-13] MEDS: ACETAMINOPHEN 325 MG TABLET PO PRN (21:48)
[2022-12-14] MEDS: OMEGA-3/DHA/EPA/FISH OIL 1,000 MG CAPSULE PO SCH (08:59)
[2022-12-14] MEDS: MULTIVITAMINS WITH MINERALS, THERAPEUTIC TABLET PO SCH (08:59)
[2022-12-14] MEDS: NALTREXONE HCL 50 MG TABLET PO SCH (08:59)
[2022-12-14] MEDS: METOPROLOL TARTRATE 25 MG TABLET PO SCH (08:59)
[2022-12-14] MEDS ORDERED: CloZAPine 100 MG TABLET PO SCH ×2 (09:00→21:00)
[2022-12-14 09:30] VITALS: BP 118/84
[2022-12-14] MEDS: MENTHOL/ZINC OXIDE 113 GM OINTMENT TP SCH ×3 (09:39→20:44)
[2022-12-14 16:00] VITALS: BP 116/77
[2022-12-14] MEDS: DIVALPROEX SODIUM 500 MG ER TABLET PO SCH (20:44)
[2022-12-14] MEDS: MELATONIN 5 MG TABLET PO SCH (20:45)
[2022-12-14] MEDS: CloZAPine 100 MG TABLET PO SCH (20:45)
[2022-12-14] MEDS: DOCUSATE SODIUM 250 MG CAPSULE PO SCH (20:45)
[2022-12-15 06:05] LABS: COVID AG,FIA SOURCE NASAL SWAB
[2022-12-15 08:12] VITALS: BP 111/81
[2022-12-15] MEDS: NALTREXONE HCL 50 MG TABLET PO SCH (09:29)
[2022-12-15] MEDS: OMEGA-3/DHA/EPA/FISH OIL 1,000 MG CAPSULE PO SCH (09:29)
[2022-12-15] MEDS: MENTHOL/ZINC OXIDE 113 GM OINTMENT TP SCH ×3 (09:29→20:05)
[2022-12-15] MEDS: METOPROLOL TARTRATE 25 MG TABLET PO SCH (09:29)
[2022-12-15] MEDS: MULTIVITAMINS WITH MINERALS, THERAPEUTIC TABLET PO SCH (09:29)
[2022-12-15 12:54] VITALS: BP 149/78
[2022-12-15 16:18] VITALS: BP 131/63
[2022-12-15] MEDS: DIVALPROEX SODIUM 500 MG ER TABLET PO SCH (20:04)
[2022-12-15] MEDS: OLANZapine 10 MG RAPDIS TABLET PO SCH (20:05)
[2022-12-15] MEDS: MELATONIN 5 MG TABLET PO SCH (20:05)
[2022-12-15] MEDS: DOCUSATE SODIUM 250 MG CAPSULE PO SCH (20:05)
[2022-12-15 22:08] VITALS: BP 152/82
[2022-12-16 08:29] VITALS: BP 137/82
[2022-12-16] MEDS: OMEGA-3/DHA/EPA/FISH OIL 1,000 MG CAPSULE PO SCH (09:07)
[2022-12-16] MEDS: MULTIVITAMINS WITH MINERALS, THERAPEUTIC TABLET PO SCH (09:07)
[2022-12-16] MEDS: MENTHOL/ZINC OXIDE 113 GM OINTMENT TP SCH ×3 (09:08→20:53)
[2022-12-16] MEDS: NALTREXONE HCL 50 MG TABLET PO SCH (09:08)
[2022-12-16] MEDS: METOPROLOL TARTRATE 25 MG TABLET PO SCH (09:08)
[2022-12-16 15:09] LABS: BASOPHILS % (AUTO) 0.7 % (0.0-2.0); EOSINOPHILS % (AUTO) 1.9 % (1.0-6.0); HEMATOCRIT 31.4 % (36-46); HEMOGLOBIN 9.9 g/dL (12.0-16.0); LYMPHOCYTES # (AUTO) 1.2 K/uL (1.0-4.8); LYMPHOCYTES % (AUTO) 8.3 % (22.0-44.0); MEAN CORPUSCULAR HEMOGLOBIN 26.5 pg (26.0-34.0); MEAN CORPUSCULAR HGB CONC 31.4 G/dL (31.0-37.0); MEAN CORPUSCULAR VOLUME 84 fL (80-100); MONOCYTES # (AUTO) 2.4 K/uL (0.1-1.0); MONOCYTES % (AUTO) 16.8 % (2.0-9.0); NEUTROPHILS # (AUTO) 10.2 K/uL (1.8-7.7); NEUTROPHILS % (AUTO) 72.3 % (40.0-70.0); PLATELET COUNT (AUTO) 215 K/uL (150-450); RED BLOOD CELL COUNT(AUTO) 3.72 MIL/uL (4.00-5.20); RED CELL DISTRIBUTION WIDTH 16.5 % (11.5-14.5)
[2022-12-16 15:18] LABS: ALBUMIN 2.1 g/dL (3.4-5.0); CALCIUM, TOTAL 9.1 mg/dL (8.8-10.5); CREATININE 2.73 mg/dL (0.60-1.30); POTASSIUM 4.5 mmol/L (3.5-5.1); TOTAL PROTEIN, SERUM 8.4 g/dL (6.4-8.2)
[2022-12-16 17:12] VITALS: BP 111/71
[2022-12-16] MEDS: OLANZapine 10 MG RAPDIS TABLET PO SCH (20:52)
[2022-12-16] MEDS: DIVALPROEX SODIUM 500 MG ER TABLET PO SCH (20:52)
[2022-12-16] MEDS: MELATONIN 5 MG TABLET PO SCH (20:53)
[2022-12-16] MEDS: DOCUSATE SODIUM 250 MG CAPSULE PO SCH (20:54)
[2022-12-17] MEDS: MULTIVITAMINS WITH MINERALS, THERAPEUTIC TABLET PO SCH ×2 (09:00→09:03)
[2022-12-17] MEDS: NALTREXONE HCL 50 MG TABLET PO SCH ×2 (09:00→09:03)
[2022-12-17] MEDS: MENTHOL/ZINC OXIDE 113 GM OINTMENT TP SCH ×4 (09:00→21:00)
[2022-12-17] MEDS: OMEGA-3/DHA/EPA/FISH OIL 1,000 MG CAPSULE PO SCH ×2 (09:00→09:03)
[2022-12-17] MEDS: METOPROLOL TARTRATE 25 MG TABLET PO SCH ×2 (09:00→09:03)
[2022-12-17 09:08] VITALS: BP 127/72
[2022-12-17 15:45] LABS: CALCIUM, TOTAL 8.7 mg/dL (8.8-10.5); CREATININE 2.65 mg/dL (0.60-1.30); POTASSIUM 4.4 mmol/L (3.5-5.1)
[2022-12-17 15:49] LABS: MAGNESIUM 3.3 mg/dL (1.80-2.40)
[2022-12-17 16:12] VITALS: BP 102/80
[2022-12-17 20:09] VITALS: BP 123/75
[2022-12-17] MEDS: DOCUSATE SODIUM 250 MG CAPSULE PO SCH (21:00)
[2022-12-17] MEDS: OLANZapine 10 MG RAPDIS TABLET PO SCH (21:00)
[2022-12-17] MEDS: MELATONIN 5 MG TABLET PO SCH (21:00)
[2022-12-17] MEDS: DIVALPROEX SODIUM 500 MG ER TABLET PO SCH (21:00)
[2022-12-17 22:29] VITALS: BP 118/65
[2022-12-18 01:36] LABS: APPEARANCE,URINE HAZY (CLEAR); GLUCOSE, URINE (UA) NEGATIVE (NEGATIVE); KETONES,URINE NEGATIVE (NEGATIVE); LEUKOCYTE ESTERASE ,URINE SMALL (NEGATIVE); NITRATE,URINE NEGATIVE (NEGATIVE); OCCULT BLOOD,URINE NEGATIVE (NEGATIVE); PROTEIN,URINE 100-200,SEE CONFIRM mg/dL (NEGATIVE); SPECIFIC GRAVITIY, URINE 1.023 (1.003-1.030)
[2022-12-18 01:38] LABS: BILIRUBIN,URINE SMALL (NEGATIVE); CREATININE,URINE RANDOM 251.6 mg/dL (30.0-125.0); SODIUM,URINE RANDOM 18 mmol/l (20-110); UREA NITROGEN,URINE RANDOM 1086 mg/dL (350-1000)
[2022-12-18 01:47] LABS: BACTERIA,URINE Few /HPF (None Seen); RBC,URINE None Seen /HPF (0-2); SQUAMOUS EPITHELIAL CELL,UR Moderate /LPF (None Seen); SULFOSALICYLIC ACID,URINE 1+ (Negative); WBC,URINE 0-2 /HPF (0-5)
[2022-12-18 03:39] VITALS: BP 107/68
[2022-12-18 06:56] VITALS: BP 106/65
[2022-12-18] MEDS: NALTREXONE HCL 50 MG TABLET PO SCH ×2 (08:58→09:00)
[2022-12-18] MEDS: OMEGA-3/DHA/EPA/FISH OIL 1,000 MG CAPSULE PO SCH ×2 (08:58→09:00)
[2022-12-18] MEDS: METOPROLOL TARTRATE 25 MG TABLET PO SCH ×2 (08:58→09:00)
[2022-12-18] MEDS: MULTIVITAMINS WITH MINERALS, THERAPEUTIC TABLET PO SCH ×2 (08:58→09:00)
[2022-12-18] MEDS: MENTHOL/ZINC OXIDE 113 GM OINTMENT TP SCH ×3 (08:59→20:52)
[2022-12-18 11:08] VITALS: BP 121/75
[2022-12-18 12:05] VITALS: BP 136/74
[2022-12-18] MEDS: ACETAMINOPHEN 325 MG TABLET PO PRN (12:05)
[2022-12-18] MEDS: PredniSONE 20 MG TABLET PO SCH (12:32)
[2022-12-18 16:13] VITALS: BP 93/58
[2022-12-18] MEDS: MUPIROCIN CALCIUM 2% 22 GM OINTMENT NASAL SCH (16:37)
[2022-12-18] MEDS: VALPROIC ACID 250 MG/5 ML SOLUTION UDCUP PO SCH (20:51)
[2022-12-18] MEDS: DOCUSATE SODIUM 250 MG CAPSULE PO SCH (20:52)
[2022-12-18] MEDS ORDERED: DIVALPROEX SODIUM 500 MG ER TABLET PO SCH (21:00)
[2022-12-19 00:11] VITALS: BP 118/67
[2022-12-19 06:45] VITALS: BP 112/71
[2022-12-19 07:10] LABS: BASOPHILS % (AUTO) 0.3 % (0.0-2.0); EOSINOPHILS % (AUTO) 0.7 % (1.0-6.0); HEMATOCRIT 28.5 % (36-46); HEMOGLOBIN 9.2 g/dL (12.0-16.0); LYMPHOCYTES # (AUTO) 2.5 K/uL (1.0-4.8); LYMPHOCYTES % (AUTO) 15.6 % (22.0-44.0); MEAN CORPUSCULAR HEMOGLOBIN 26.8 pg (26.0-34.0); MEAN CORPUSCULAR HGB CONC 32.2 G/dL (31.0-37.0); MEAN CORPUSCULAR VOLUME 84 fL (80-100); MONOCYTES # (AUTO) 1.9 K/uL (0.1-1.0); MONOCYTES % (AUTO) 11.9 % (2.0-9.0); NEUTROPHILS # (AUTO) 11.5 K/uL (1.8-7.7); NEUTROPHILS % (AUTO) 71.5 % (40.0-70.0); PLATELET COUNT (AUTO) 337 K/uL (150-450); RED BLOOD CELL COUNT(AUTO) 3.41 MIL/uL (4.00-5.20); RED CELL DISTRIBUTION WIDTH 16.5 % (11.5-14.5)
[2022-12-19 08:13] VITALS: BP 111/69
[2022-12-19] MEDS: NALTREXONE HCL 50 MG TABLET PO SCH (09:17)
[2022-12-19] MEDS: PredniSONE 20 MG TABLET PO SCH (09:17)
[2022-12-19] MEDS: METOPROLOL TARTRATE 25 MG TABLET PO SCH (09:17)
[2022-12-19] MEDS: MULTIVITAMINS WITH MINERALS, THERAPEUTIC TABLET PO SCH (09:17)
[2022-12-19] MEDS: MUPIROCIN CALCIUM 2% 22 GM OINTMENT NASAL SCH ×2 (09:17→17:40)
[2022-12-19] MEDS: OMEGA-3/DHA/EPA/FISH OIL 1,000 MG CAPSULE PO SCH (09:17)
[2022-12-19] MEDS: MENTHOL/ZINC OXIDE 113 GM OINTMENT TP SCH ×3 (09:18→20:17)
[2022-12-19 09:27] LABS: CALCIUM, TOTAL 8.8 mg/dL (8.8-10.5); CREATININE 2.48 mg/dL (0.60-1.30); POTASSIUM 4.5 mmol/L (3.5-5.1)
[2022-12-19 16:24] VITALS: BP 123/70
[2022-12-19] MEDS: DOCUSATE SODIUM 250 MG CAPSULE PO SCH (20:17)
[2022-12-19] MEDS: VALPROIC ACID 250 MG/5 ML SOLUTION UDCUP PO SCH (20:17)
[2022-12-20 08:30] VITALS: BP 130/82
[2022-12-20 08:57] LABS: CALCIUM, TOTAL 9.1 mg/dL (8.8-10.5); CREATININE 2.13 mg/dL (0.60-1.30); POTASSIUM 4.4 mmol/L (3.5-5.1)
[2022-12-20] MEDS: MULTIVITAMINS WITH MINERALS, THERAPEUTIC TABLET PO SCH (09:29)
[2022-12-20] MEDS: NALTREXONE HCL 50 MG TABLET PO SCH (09:29)
[2022-12-20] MEDS: PredniSONE 20 MG TABLET PO SCH (09:29)
[2022-12-20] MEDS: OMEGA-3/DHA/EPA/FISH OIL 1,000 MG CAPSULE PO SCH (09:29)
[2022-12-20] MEDS: METOPROLOL TARTRATE 25 MG TABLET PO SCH ×2 (09:29→16:56)
[2022-12-20] MEDS: MUPIROCIN CALCIUM 2% 22 GM OINTMENT NASAL SCH ×2 (09:30→16:55)
[2022-12-20] MEDS: MENTHOL/ZINC OXIDE 113 GM OINTMENT TP SCH ×3 (09:30→21:04)
[2022-12-20] MEDS: EPOETIN ALFA 10,000 UNITS/ML VIAL SQ SCH (10:30)
[2022-12-20 16:14] VITALS: BP 128/84
[2022-12-20] MEDS: DOCUSATE SODIUM 250 MG CAPSULE PO SCH (21:03)
[2022-12-20] MEDS: VALPROIC ACID 250 MG/5 ML SOLUTION UDCUP PO SCH (21:03)
[2022-12-21 09:11] VITALS: BP 114/69
[2022-12-21] MEDS: METOPROLOL TARTRATE 25 MG TABLET PO SCH ×2 (09:52→17:52)
[2022-12-21] MEDS: OMEGA-3/DHA/EPA/FISH OIL 1,000 MG CAPSULE PO SCH (09:52)
[2022-12-21] MEDS: MULTIVITAMINS WITH MINERALS, THERAPEUTIC TABLET PO SCH (09:52)
[2022-12-21] MEDS: NALTREXONE HCL 50 MG TABLET PO SCH (09:52)
[2022-12-21] MEDS: MENTHOL/ZINC OXIDE 113 GM OINTMENT TP SCH ×3 (09:52→20:30)
[2022-12-21] MEDS: MUPIROCIN CALCIUM 2% 22 GM OINTMENT NASAL SCH ×2 (09:52→17:52)
[2022-12-21] MEDS: PredniSONE 20 MG TABLET PO SCH (09:54)
[2022-12-21 16:33] VITALS: BP 104/60
[2022-12-21] MEDS: DOCUSATE SODIUM 250 MG CAPSULE PO SCH (20:29)
[2022-12-21] MEDS: VALPROIC ACID 250 MG/5 ML SOLUTION UDCUP PO SCH (20:30)
[2022-12-21 21:15] VITALS: BP 105/71
[2022-12-22 06:51] LABS: COVID AG,FIA SOURCE NASAL SWAB
[2022-12-22] MEDS: MUPIROCIN CALCIUM 2% 22 GM OINTMENT NASAL SCH ×2 (09:22→18:07)
[2022-12-22] MEDS: MENTHOL/ZINC OXIDE 113 GM OINTMENT TP SCH ×3 (09:22→21:09)
[2022-12-22] MEDS: METOPROLOL TARTRATE 25 MG TABLET PO SCH ×2 (09:24→18:07)
[2022-12-22] MEDS: NALTREXONE HCL 50 MG TABLET PO SCH (09:24)
[2022-12-22] MEDS: MULTIVITAMINS WITH MINERALS, THERAPEUTIC TABLET PO SCH (09:24)
[2022-12-22] MEDS: OMEGA-3/DHA/EPA/FISH OIL 1,000 MG CAPSULE PO SCH (09:24)
[2022-12-22 10:38] VITALS: BP 107/75
[2022-12-22 11:08] LABS: CALCIUM, TOTAL 8.6 mg/dL (8.8-10.5); CREATININE 1.75 mg/dL (0.60-1.30); POTASSIUM 3.9 mmol/L (3.5-5.1)
[2022-12-22 16:20] VITALS: BP 132/82
[2022-12-22] MEDS: VALPROIC ACID 250 MG/5 ML SOLUTION UDCUP PO SCH (21:08)
[2022-12-22] MEDS: DOCUSATE SODIUM 250 MG CAPSULE PO SCH (21:09)
[2022-12-22 21:31] VITALS: BP 129/76
[2022-12-23] MEDS: MODAFINIL 100 MG TABLET PO SCH (09:09)
[2022-12-23] MEDS: MULTIVITAMINS WITH MINERALS, THERAPEUTIC TABLET PO SCH (09:09)
[2022-12-23] MEDS: OMEGA-3/DHA/EPA/FISH OIL 1,000 MG CAPSULE PO SCH (09:09)
[2022-12-23] MEDS: NALTREXONE HCL 50 MG TABLET PO SCH (09:09)
[2022-12-23] MEDS: MUPIROCIN CALCIUM 2% 22 GM OINTMENT NASAL SCH (09:11)
[2022-12-23] MEDS: MENTHOL/ZINC OXIDE 113 GM OINTMENT TP SCH ×3 (09:12→21:13)
[2022-12-23 09:25] VITALS: BP 104/61
[2022-12-23 10:01] VITALS: BP 110/68
[2022-12-23] MEDS: METOPROLOL TARTRATE 25 MG TABLET PO SCH ×2 (10:03→16:43)
[2022-12-23 16:20] VITALS: BP 132/70
[2022-12-23] MEDS: DOCUSATE SODIUM 250 MG CAPSULE PO SCH (21:13)
[2022-12-23] MEDS: VALPROIC ACID 250 MG/5 ML SOLUTION UDCUP PO SCH (21:13)
[2022-12-23 21:19] VITALS: BP 105/66
[2022-12-24] MEDS: MENTHOL/ZINC OXIDE 113 GM OINTMENT TP SCH ×3 (09:14→21:08)
[2022-12-24] MEDS: MULTIVITAMINS WITH MINERALS, THERAPEUTIC TABLET PO SCH (09:14)
[2022-12-24] MEDS: NALTREXONE HCL 50 MG TABLET PO SCH (09:14)
[2022-12-24] MEDS: MODAFINIL 100 MG TABLET PO SCH (09:14)
[2022-12-24] MEDS: OMEGA-3/DHA/EPA/FISH OIL 1,000 MG CAPSULE PO SCH (09:14)
[2022-12-24] MEDS: METOPROLOL TARTRATE 25 MG TABLET PO SCH ×2 (09:14→16:15)
[2022-12-24 09:23] VITALS: BP 114/64
[2022-12-24] MEDS ORDERED: OLANZapine 5 MG RAPDIS TABLET PO SCH (21:00)
[2022-12-24] MEDS: DOCUSATE SODIUM 250 MG CAPSULE PO SCH (21:07)
[2022-12-24] MEDS: VALPROIC ACID 250 MG/5 ML SOLUTION UDCUP PO SCH (21:07)
[2022-12-25 07:43] LABS: CALCIUM, TOTAL 8.5 mg/dL (8.8-10.5); CREATININE 1.91 mg/dL (0.60-1.30); POTASSIUM 4.4 mmol/L (3.5-5.1)
[2022-12-25 09:10] VITALS: BP 119/68
[2022-12-25] MEDS: NALTREXONE HCL 50 MG TABLET PO SCH (09:46)
[2022-12-25] MEDS: MODAFINIL 100 MG TABLET PO SCH (09:46)
[2022-12-25] MEDS: OMEGA-3/DHA/EPA/FISH OIL 1,000 MG CAPSULE PO SCH (09:46)
[2022-12-25] MEDS: MULTIVITAMINS WITH MINERALS, THERAPEUTIC TABLET PO SCH (09:46)
[2022-12-25] MEDS: METOPROLOL TARTRATE 25 MG TABLET PO SCH ×2 (09:46→17:00)
[2022-12-25] MEDS: MENTHOL/ZINC OXIDE 113 GM OINTMENT TP SCH ×3 (09:47→21:31)
[2022-12-25 16:00] VITALS: BP 100/69
[2022-12-25 16:35] VITALS: BP 100/69
[2022-12-25] MEDS: OLANZapine 5 MG RAPDIS TABLET PO SCH (20:31)
[2022-12-25] MEDS: VALPROIC ACID 250 MG/5 ML SOLUTION UDCUP PO SCH (20:31)
[2022-12-25] MEDS: DOCUSATE SODIUM 250 MG CAPSULE PO SCH (20:31)
[2022-12-26 08:59] VITALS: BP 92/55
[2022-12-26] MEDS: MENTHOL/ZINC OXIDE 113 GM OINTMENT TP SCH ×3 (09:33→20:18)
[2022-12-26] MEDS: METOPROLOL TARTRATE 25 MG TABLET PO SCH ×2 (09:34→18:30)
[2022-12-26] MEDS: MODAFINIL 100 MG TABLET PO SCH (09:34)
[2022-12-26] MEDS: OMEGA-3/DHA/EPA/FISH OIL 1,000 MG CAPSULE PO SCH (09:34)
[2022-12-26] MEDS: MULTIVITAMINS WITH MINERALS, THERAPEUTIC TABLET PO SCH (09:34)
[2022-12-26] MEDS: NALTREXONE HCL 50 MG TABLET PO SCH (09:34)
[2022-12-26 17:43] VITALS: BP 97/56
[2022-12-26 18:10] VITALS: BP 124/66
[2022-12-26] MEDS: DOCUSATE SODIUM 250 MG CAPSULE PO SCH (20:17)
[2022-12-26] MEDS: VALPROIC ACID 250 MG/5 ML SOLUTION UDCUP PO SCH (20:17)
[2022-12-26] MEDS: OLANZapine 5 MG RAPDIS TABLET PO SCH (20:18)
[2022-12-27 08:00] VITALS: BP 148/80
[2022-12-27] MEDS: MENTHOL/ZINC OXIDE 113 GM OINTMENT TP SCH ×3 (12:08→21:34)
[2022-12-27] MEDS: METOPROLOL TARTRATE 25 MG TABLET PO SCH ×2 (12:09→17:53)
[2022-12-27] MEDS: MULTIVITAMINS WITH MINERALS, THERAPEUTIC TABLET PO SCH (12:09)
[2022-12-27] MEDS: NALTREXONE HCL 50 MG TABLET PO SCH (12:09)
[2022-12-27] MEDS: OMEGA-3/DHA/EPA/FISH OIL 1,000 MG CAPSULE PO SCH (12:09)
[2022-12-27] MEDS: MODAFINIL 100 MG TABLET PO SCH (12:10)
[2022-12-27] MEDS: EPOETIN ALFA 10,000 UNITS/ML VIAL SQ SCH (12:12)
[2022-12-27] MEDS: PrednisoLONE ACETATE 1% 5 ML OPHTHALMIC SUSPENSION OD SCH ×3 (13:26→21:34)
[2022-12-27 16:00] VITALS: BP 140/75
[2022-12-27] MEDS: OLANZapine 5 MG RAPDIS TABLET PO SCH (21:32)
[2022-12-27] MEDS: VALPROIC ACID 250 MG/5 ML SOLUTION UDCUP PO SCH (21:34)
[2022-12-27] MEDS: DOCUSATE SODIUM 250 MG CAPSULE PO SCH (21:36)
[2022-12-28 06:47] LABS: CREATININE 1.7 mg/dL (0.60-1.30); MAGNESIUM 2.3 mg/dL (1.80-2.40); PHOSPHORUS 4.4 mg/dL (2.5-4.9); POTASSIUM 4.5 mmol/L (3.5-5.1)
[2022-12-28 07:35] LABS: HEMATOCRIT 31.4 % (36-46)
[2022-12-28 08:30] VITALS: BP 132/64
[2022-12-28] MEDS: OMEGA-3/DHA/EPA/FISH OIL 1,000 MG CAPSULE PO SCH (09:56)
[2022-12-28] MEDS: PrednisoLONE ACETATE 1% 5 ML OPHTHALMIC SUSPENSION OD SCH ×4 (09:56→21:15)
[2022-12-28] MEDS: METOPROLOL TARTRATE 25 MG TABLET PO SCH ×2 (09:57→16:37)
[2022-12-28] MEDS: MODAFINIL 100 MG TABLET PO SCH (09:57)
[2022-12-28] MEDS: MULTIVITAMINS WITH MINERALS, THERAPEUTIC TABLET PO SCH (09:57)
[2022-12-28] MEDS: NALTREXONE HCL 50 MG TABLET PO SCH (09:57)
[2022-12-28] MEDS: MENTHOL/ZINC OXIDE 113 GM OINTMENT TP SCH ×3 (09:57→21:16)
[2022-12-28 16:16] VITALS: BP 110/55
[2022-12-28] MEDS: VALPROIC ACID 250 MG/5 ML SOLUTION UDCUP PO SCH (21:14)
[2022-12-28] MEDS: DOCUSATE SODIUM 250 MG CAPSULE PO SCH (21:15)
[2022-12-28] MEDS: OLANZapine 5 MG RAPDIS TABLET PO SCH (21:16)
[2022-12-29 06:49] LABS: COVID AG,FIA SOURCE NASAL SWAB
[2022-12-29] MEDS: OMEGA-3/DHA/EPA/FISH OIL 1,000 MG CAPSULE PO SCH (09:48)
[2022-12-29] MEDS: MODAFINIL 100 MG TABLET PO SCH (09:48)
[2022-12-29] MEDS: MENTHOL/ZINC OXIDE 113 GM OINTMENT TP SCH ×3 (09:48→20:44)
[2022-12-29] MEDS: METOPROLOL TARTRATE 25 MG TABLET PO SCH ×2 (09:48→17:52)
[2022-12-29] MEDS: MULTIVITAMINS WITH MINERALS, THERAPEUTIC TABLET PO SCH (09:48)
[2022-12-29] MEDS: NALTREXONE HCL 50 MG TABLET PO SCH (09:48)
[2022-12-29] MEDS: DICLOFENAC SODIUM 0.1% 2.5 ML OPHTHALMIC SOLUTION OD SCH ×4 (09:49→21:11)
[2022-12-29] MEDS: PrednisoLONE ACETATE 1% 5 ML OPHTHALMIC SUSPENSION OD SCH ×4 (09:49→20:44)
[2022-12-29 10:38] VITALS: BP 110/66
[2022-12-29 17:13] VITALS: BP 105/62
[2022-12-29] MEDS: VALPROIC ACID 250 MG/5 ML SOLUTION UDCUP PO SCH (20:43)
[2022-12-29] MEDS: DOCUSATE SODIUM 250 MG CAPSULE PO SCH (20:44)
[2022-12-29] MEDS: OLANZapine 5 MG RAPDIS TABLET PO SCH (20:45)
[2022-12-30 07:01] LABS: CALCIUM, TOTAL 8.6 mg/dL (8.8-10.5); CREATININE 1.65 mg/dL (0.60-1.30); MAGNESIUM 2.2 mg/dL (1.80-2.40); PHOSPHORUS 4.4 mg/dL (2.5-4.9); POTASSIUM 4.3 mmol/L (3.5-5.1)
[2022-12-30] MEDS: PrednisoLONE ACETATE 1% 5 ML OPHTHALMIC SUSPENSION OD SCH ×4 (09:00→20:55)
[2022-12-30 09:40] VITALS: BP 125/70
[2022-12-30] MEDS: MULTIVITAMINS WITH MINERALS, THERAPEUTIC TABLET PO SCH (10:09)
[2022-12-30] MEDS: OMEGA-3/DHA/EPA/FISH OIL 1,000 MG CAPSULE PO SCH (10:09)
[2022-12-30] MEDS: METOPROLOL TARTRATE 25 MG TABLET PO SCH ×2 (10:09→17:00)
[2022-12-30] MEDS: NALTREXONE HCL 50 MG TABLET PO SCH (10:09)
[2022-12-30] MEDS: DICLOFENAC SODIUM 0.1% 2.5 ML OPHTHALMIC SOLUTION OD SCH ×4 (10:09→20:55)
[2022-12-30] MEDS: MODAFINIL 100 MG TABLET PO SCH (10:09)
[2022-12-30] MEDS: MENTHOL/ZINC OXIDE 113 GM OINTMENT TP SCH ×3 (10:10→20:54)
[2022-12-30 16:12] VITALS: BP 92/57
[2022-12-30] MEDS: OLANZapine 5 MG RAPDIS TABLET PO SCH (20:53)
[2022-12-30] MEDS: VALPROIC ACID 250 MG/5 ML SOLUTION UDCUP PO SCH (20:53)
[2022-12-30] MEDS: DOCUSATE SODIUM 250 MG CAPSULE PO SCH (20:56)
[2022-12-30 22:35] VITALS: BP 120/69
[2022-12-31 04:08] LABS: COVID AG,FIA SOURCE NASAL SWAB
[2022-12-31] MEDS: MODAFINIL 100 MG TABLET PO SCH (09:00)
[2022-12-31] MEDS: PrednisoLONE ACETATE 1% 5 ML OPHTHALMIC SUSPENSION OD SCH ×4 (09:00→20:55)
[2022-12-31] MEDS: OMEGA-3/DHA/EPA/FISH OIL 1,000 MG CAPSULE PO SCH (09:00)
[2022-12-31] MEDS: MOXIFLOXACIN HCL 0.5% 3 ML OPHTHALMIC SOLUTION OD SCH ×4 (09:00→21:00)
[2022-12-31] MEDS: NALTREXONE HCL 50 MG TABLET PO SCH (09:00)
[2022-12-31] MEDS: METOPROLOL TARTRATE 25 MG TABLET PO SCH ×2 (09:00→16:49)
[2022-12-31] MEDS: MULTIVITAMINS WITH MINERALS, THERAPEUTIC TABLET PO SCH (09:00)
[2022-12-31] MEDS: MENTHOL/ZINC OXIDE 113 GM OINTMENT TP SCH ×3 (10:04→21:00)
[2022-12-31 10:28] VITALS: BP 125/74
[2022-12-31] MEDS: ACETAMINOPHEN 325 MG TABLET PO PRN (10:28)
[2022-12-31 10:37] VITALS: BP 125/74
[2022-12-31 16:00] VITALS: BP 94/64
[2022-12-31] MEDS: DOCUSATE SODIUM 250 MG CAPSULE PO SCH (21:00)
[2022-12-31] MEDS: OLANZapine 5 MG RAPDIS TABLET PO SCH (21:00)
[2022-12-31] MEDS: VALPROIC ACID 250 MG/5 ML SOLUTION UDCUP PO SCH (21:00)
[2023-01-01 09:03] VITALS: BP 116/67
[2023-01-01] MEDS: NALTREXONE HCL 50 MG TABLET PO SCH (09:11)
[2023-01-01] MEDS: METOPROLOL TARTRATE 25 MG TABLET PO SCH ×2 (09:11→16:23)
[2023-01-01] MEDS: MULTIVITAMINS WITH MINERALS, THERAPEUTIC TABLET PO SCH (09:11)
[2023-01-01] MEDS: OMEGA-3/DHA/EPA/FISH OIL 1,000 MG CAPSULE PO SCH (09:11)
[2023-01-01] MEDS: MOXIFLOXACIN HCL 0.5% 3 ML OPHTHALMIC SOLUTION OD SCH ×4 (09:11→21:37)
[2023-01-01] MEDS: PrednisoLONE ACETATE 1% 5 ML OPHTHALMIC SUSPENSION OD SCH ×4 (09:11→21:42)
[2023-01-01] MEDS: MODAFINIL 100 MG TABLET PO SCH (09:11)
[2023-01-01] MEDS: MENTHOL/ZINC OXIDE 113 GM OINTMENT TP SCH ×3 (09:12→21:43)
[2023-01-01 16:00] VITALS: BP 102/55
[2023-01-01 16:19] VITALS: BP 102/55
[2023-01-01 16:57] LABS: CALCIUM, TOTAL 8.6 mg/dL (8.8-10.5); CREATININE 1.77 mg/dL (0.60-1.30); PHOSPHORUS 4.4 mg/dL (2.5-4.9); POTASSIUM 5.2 mmol/L (3.5-5.1)
[2023-01-01] MEDS: OLANZapine 5 MG RAPDIS TABLET PO SCH (21:41)
[2023-01-01] MEDS: DOCUSATE SODIUM 250 MG CAPSULE PO SCH (21:41)
[2023-01-01] MEDS: VALPROIC ACID 250 MG/5 ML SOLUTION UDCUP PO SCH (21:43)
[2023-01-02 08:35] VITALS: BP 133/52
[2023-01-02] MEDS: PrednisoLONE ACETATE 1% 5 ML OPHTHALMIC SUSPENSION OD SCH ×4 (08:57→20:46)
[2023-01-02] MEDS: MOXIFLOXACIN HCL 0.5% 3 ML OPHTHALMIC SOLUTION OD SCH ×4 (08:57→20:45)
[2023-01-02] MEDS: OMEGA-3/DHA/EPA/FISH OIL 1,000 MG CAPSULE PO SCH (08:59)
[2023-01-02] MEDS: NALTREXONE HCL 50 MG TABLET PO SCH (08:59)
[2023-01-02] MEDS: METOPROLOL TARTRATE 25 MG TABLET PO SCH ×2 (08:59→16:16)
[2023-01-02] MEDS: MULTIVITAMINS WITH MINERALS, THERAPEUTIC TABLET PO SCH (08:59)
[2023-01-02] MEDS: MODAFINIL 100 MG TABLET PO SCH (09:00)
[2023-01-02] MEDS: MENTHOL/ZINC OXIDE 113 GM OINTMENT TP SCH ×3 (09:02→20:46)
[2023-01-02 16:08] VITALS: BP 117/63
[2023-01-02] MEDS: VALPROIC ACID 250 MG/5 ML SOLUTION UDCUP PO SCH (20:44)
[2023-01-02] MEDS: OLANZapine 5 MG RAPDIS TABLET PO SCH (20:44)
[2023-01-02] MEDS: DOCUSATE SODIUM 250 MG CAPSULE PO SCH (20:46)
[2023-01-03] MEDS: EPOETIN ALFA 10,000 UNITS/ML VIAL SQ SCH (09:03)
[2023-01-03] MEDS: MENTHOL/ZINC OXIDE 113 GM OINTMENT TP SCH ×3 (09:04→21:23)
[2023-01-03] MEDS: METOPROLOL TARTRATE 25 MG TABLET PO SCH ×2 (09:04→16:19)
[2023-01-03] MEDS: MULTIVITAMINS WITH MINERALS, THERAPEUTIC TABLET PO SCH (09:04)
[2023-01-03] MEDS: PrednisoLONE ACETATE 1% 5 ML OPHTHALMIC SUSPENSION OD SCH (09:04)
[2023-01-03] MEDS: MOXIFLOXACIN HCL 0.5% 3 ML OPHTHALMIC SOLUTION OD SCH ×4 (09:04→21:23)
[2023-01-03] MEDS: MODAFINIL 100 MG TABLET PO SCH (09:04)
[2023-01-03] MEDS: OMEGA-3/DHA/EPA/FISH OIL 1,000 MG CAPSULE PO SCH (09:04)
[2023-01-03] MEDS: NALTREXONE HCL 50 MG TABLET PO SCH (09:04)
[2023-01-03 10:07] VITALS: BP 121/68
[2023-01-03 17:12] VITALS: BP 116/70
[2023-01-03] MEDS: DOCUSATE SODIUM 250 MG CAPSULE PO SCH (21:23)
[2023-01-03] MEDS: OLANZapine 5 MG RAPDIS TABLET PO SCH (21:23)
[2023-01-03] MEDS: VALPROIC ACID 250 MG/5 ML SOLUTION UDCUP PO SCH (21:24)
[2023-01-04] MEDS: MULTIVITAMINS WITH MINERALS, THERAPEUTIC TABLET PO SCH (08:48)
[2023-01-04] MEDS: OMEGA-3/DHA/EPA/FISH OIL 1,000 MG CAPSULE PO SCH (08:48)
[2023-01-04] MEDS: MENTHOL/ZINC OXIDE 113 GM OINTMENT TP SCH ×3 (08:49→21:01)
[2023-01-04] MEDS: METOPROLOL TARTRATE 25 MG TABLET PO SCH ×2 (08:49→16:49)
[2023-01-04] MEDS: MODAFINIL 100 MG TABLET PO SCH (08:49)
[2023-01-04] MEDS: NALTREXONE HCL 50 MG TABLET PO SCH (08:49)
[2023-01-04] MEDS: MOXIFLOXACIN HCL 0.5% 3 ML OPHTHALMIC SOLUTION OD SCH ×4 (08:50→21:02)
[2023-01-04 10:13] VITALS: BP_SYST 84
[2023-01-04 16:47] VITALS: BP 103/56
[2023-01-04] MEDS: DOCUSATE SODIUM 250 MG CAPSULE PO SCH (21:03)
[2023-01-04] MEDS: OLANZapine 5 MG RAPDIS TABLET PO SCH (21:04)
[2023-01-04] MEDS: VALPROIC ACID 250 MG/5 ML SOLUTION UDCUP PO SCH (21:15)
[2023-01-05 08:00] VITALS: BP 123/81
[2023-01-05 09:01] LABS: CREATININE 1.76 mg/dL (0.60-1.30); POTASSIUM 4.4 mmol/L (3.5-5.1)
[2023-01-05] MEDS: METOPROLOL TARTRATE 25 MG TABLET PO SCH ×2 (10:19→18:14)
[2023-01-05] MEDS: MULTIVITAMINS WITH MINERALS, THERAPEUTIC TABLET PO SCH (10:19)
[2023-01-05] MEDS: OMEGA-3/DHA/EPA/FISH OIL 1,000 MG CAPSULE PO SCH (10:19)
[2023-01-05] MEDS: MODAFINIL 100 MG TABLET PO SCH (10:19)
[2023-01-05] MEDS: NALTREXONE HCL 50 MG TABLET PO SCH (10:19)
[2023-01-05] MEDS: MOXIFLOXACIN HCL 0.5% 3 ML OPHTHALMIC SOLUTION OD SCH ×4 (10:21→20:46)
[2023-01-05] MEDS: MENTHOL/ZINC OXIDE 113 GM OINTMENT TP SCH ×3 (10:22→20:45)
[2023-01-05 16:47] VITALS: BP 113/53
[2023-01-05] MEDS: DOCUSATE SODIUM 250 MG CAPSULE PO SCH (20:45)
[2023-01-05] MEDS: OLANZapine 5 MG RAPDIS TABLET PO SCH (20:45)
[2023-01-05] MEDS: VALPROIC ACID 250 MG/5 ML SOLUTION UDCUP PO SCH (21:21)
[2023-01-06] MEDS: MODAFINIL 100 MG TABLET PO SCH (08:40)
[2023-01-06] MEDS: NALTREXONE HCL 50 MG TABLET PO SCH (08:40)
[2023-01-06] MEDS: OMEGA-3/DHA/EPA/FISH OIL 1,000 MG CAPSULE PO SCH (08:40)
[2023-01-06] MEDS: MULTIVITAMINS WITH MINERALS, THERAPEUTIC TABLET PO SCH (08:40)
[2023-01-06] MEDS: MOXIFLOXACIN HCL 0.5% 3 ML OPHTHALMIC SOLUTION OD SCH ×4 (08:40→20:35)
[2023-01-06] MEDS: MENTHOL/ZINC OXIDE 113 GM OINTMENT TP SCH ×3 (08:41→20:35)
[2023-01-06 08:50] VITALS: BP 109/64
[2023-01-06] MEDS: METOPROLOL TARTRATE 25 MG TABLET PO SCH ×2 (08:52→16:41)
[2023-01-06 16:09] VITALS: BP 97/63
[2023-01-06 20:35] VITALS: BP 123/75
[2023-01-06] MEDS: OLANZapine 5 MG RAPDIS TABLET PO SCH (20:36)
[2023-01-06] MEDS: DOCUSATE SODIUM 250 MG CAPSULE PO SCH (20:36)
[2023-01-06] MEDS: VALPROIC ACID 250 MG/5 ML SOLUTION UDCUP PO SCH (21:12)
[2023-01-07 08:06] LABS: COVID AG,FIA SOURCE NASAL SWAB
[2023-01-07] MEDS: MULTIVITAMINS WITH MINERALS, THERAPEUTIC TABLET PO SCH (08:31)
[2023-01-07] MEDS: MODAFINIL 100 MG TABLET PO SCH (08:31)
[2023-01-07] MEDS: NALTREXONE HCL 50 MG TABLET PO SCH (08:31)
[2023-01-07] MEDS: OMEGA-3/DHA/EPA/FISH OIL 1,000 MG CAPSULE PO SCH (08:31)
[2023-01-07] MEDS: MENTHOL/ZINC OXIDE 113 GM OINTMENT TP SCH ×3 (08:32→20:53)
[2023-01-07] MEDS: METOPROLOL TARTRATE 25 MG TABLET PO SCH ×2 (08:32→17:00)
[2023-01-07] MEDS: KETOROLAC TROMETHAMINE 0.5% 5 ML OPHTHALMIC SOLUTION OD SCH ×2 (17:01→20:50)
[2023-01-07] MEDS: PrednisoLONE ACETATE 1% 5 ML OPHTHALMIC SUSPENSION OD SCH (17:02)
[2023-01-07] MEDS: MOXIFLOXACIN HCL 0.5% 3 ML OPHTHALMIC SOLUTION OD SCH ×2 (17:02→20:50)
[2023-01-07 17:11] VITALS: BP 97/52
[2023-01-07] MEDS: DOCUSATE SODIUM 250 MG CAPSULE PO SCH (20:50)
[2023-01-07] MEDS: VALPROIC ACID 250 MG/5 ML SOLUTION UDCUP PO SCH (20:51)
[2023-01-07] MEDS: OLANZapine 5 MG RAPDIS TABLET PO SCH (20:51)
[2023-01-08 08:29] VITALS: BP 124/74
[2023-01-08] MEDS: METOPROLOL TARTRATE 25 MG TABLET PO SCH ×2 (09:09→16:32)
[2023-01-08] MEDS: OMEGA-3/DHA/EPA/FISH OIL 1,000 MG CAPSULE PO SCH (09:09)
[2023-01-08] MEDS: MENTHOL/ZINC OXIDE 113 GM OINTMENT TP SCH ×3 (09:09→21:51)
[2023-01-08] MEDS: MULTIVITAMINS WITH MINERALS, THERAPEUTIC TABLET PO SCH (09:09)
[2023-01-08] MEDS: NALTREXONE HCL 50 MG TABLET PO SCH (09:10)
[2023-01-08] MEDS: PrednisoLONE ACETATE 1% 5 ML OPHTHALMIC SUSPENSION OD SCH ×3 (09:10→16:31)
[2023-01-08] MEDS: MODAFINIL 100 MG TABLET PO SCH (09:10)
[2023-01-08] MEDS: KETOROLAC TROMETHAMINE 0.5% 5 ML OPHTHALMIC SOLUTION OD SCH ×4 (09:11→21:51)
[2023-01-08] MEDS: MOXIFLOXACIN HCL 0.5% 3 ML OPHTHALMIC SOLUTION OD SCH ×4 (09:11→21:52)
[2023-01-08 16:00] VITALS: BP 99/69
[2023-01-08] MEDS: OLANZapine 5 MG RAPDIS TABLET PO SCH (21:51)
[2023-01-08] MEDS: VALPROIC ACID 250 MG/5 ML SOLUTION UDCUP PO SCH (21:52)
[2023-01-08] MEDS: DOCUSATE SODIUM 250 MG CAPSULE PO SCH (21:52)
[2023-01-08 22:04] VITALS: BP 103/60
[2023-01-09 09:08] VITALS: BP 101/60
[2023-01-09] MEDS: OMEGA-3/DHA/EPA/FISH OIL 1,000 MG CAPSULE PO SCH (09:18)
[2023-01-09] MEDS: MULTIVITAMINS WITH MINERALS, THERAPEUTIC TABLET PO SCH (09:18)
[2023-01-09] MEDS: NALTREXONE HCL 50 MG TABLET PO SCH (09:18)
[2023-01-09] MEDS: METOPROLOL TARTRATE 25 MG TABLET PO SCH ×2 (09:18→17:29)
[2023-01-09] MEDS: MODAFINIL 100 MG TABLET PO SCH (09:18)
[2023-01-09] MEDS: MENTHOL/ZINC OXIDE 113 GM OINTMENT TP SCH ×3 (09:22→21:03)
[2023-01-09] MEDS: PrednisoLONE ACETATE 1% 5 ML OPHTHALMIC SUSPENSION OD SCH ×3 (09:24→17:29)
[2023-01-09] MEDS: KETOROLAC TROMETHAMINE 0.5% 5 ML OPHTHALMIC SOLUTION OD SCH ×4 (09:24→21:02)
[2023-01-09] MEDS: MOXIFLOXACIN HCL 0.5% 3 ML OPHTHALMIC SOLUTION OD SCH ×4 (09:25→21:02)
[2023-01-09 16:08] VITALS: BP 108/72
[2023-01-09 20:40] VITALS: BP 117/62
[2023-01-09] MEDS: OLANZapine 5 MG RAPDIS TABLET PO SCH (21:02)
[2023-01-09] MEDS: VALPROIC ACID 250 MG/5 ML SOLUTION UDCUP PO SCH (21:02)
[2023-01-09] MEDS: DOCUSATE SODIUM 250 MG CAPSULE PO SCH (21:03)
[2023-01-10 09:05] VITALS: BP 125/77
[2023-01-10] MEDS: NALTREXONE HCL 50 MG TABLET PO SCH (09:13)
[2023-01-10] MEDS: METOPROLOL TARTRATE 25 MG TABLET PO SCH ×2 (09:13→17:04)
[2023-01-10] MEDS: OMEGA-3/DHA/EPA/FISH OIL 1,000 MG CAPSULE PO SCH (09:13)
[2023-01-10] MEDS: MULTIVITAMINS WITH MINERALS, THERAPEUTIC TABLET PO SCH (09:13)
[2023-01-10] MEDS: MODAFINIL 100 MG TABLET PO SCH (09:14)
[2023-01-10] MEDS: MENTHOL/ZINC OXIDE 113 GM OINTMENT TP SCH ×3 (09:15→21:11)
[2023-01-10] MEDS: MOXIFLOXACIN HCL 0.5% 3 ML OPHTHALMIC SOLUTION OD SCH ×4 (09:17→21:30)
[2023-01-10] MEDS: KETOROLAC TROMETHAMINE 0.5% 5 ML OPHTHALMIC SOLUTION OD SCH ×4 (09:18→21:11)
[2023-01-10] MEDS: PrednisoLONE ACETATE 1% 5 ML OPHTHALMIC SUSPENSION OD SCH ×3 (09:19→17:03)
[2023-01-10 16:34] VITALS: BP 117/62
[2023-01-10] MEDS: EPOETIN ALFA 10,000 UNITS/ML VIAL SQ SCH (17:00)
[2023-01-10] MEDS: DOCUSATE SODIUM 250 MG CAPSULE PO SCH (21:09)
[2023-01-10] MEDS: OLANZapine 5 MG RAPDIS TABLET PO SCH (21:09)
[2023-01-10] MEDS: VALPROIC ACID 250 MG/5 ML SOLUTION UDCUP PO SCH (21:10)
[2023-01-10 22:02] VITALS: BP 102/62
[2023-01-11 08:00] VITALS: BP 113/69
[2023-01-11] MEDS: MULTIVITAMINS WITH MINERALS, THERAPEUTIC TABLET PO SCH (08:04)
[2023-01-11] MEDS: OMEGA-3/DHA/EPA/FISH OIL 1,000 MG CAPSULE PO SCH (08:04)
[2023-01-11] MEDS: NALTREXONE HCL 50 MG TABLET PO SCH (08:04)
[2023-01-11] MEDS: PrednisoLONE ACETATE 1% 5 ML OPHTHALMIC SUSPENSION OD SCH ×3 (08:04→17:13)
[2023-01-11] MEDS: MODAFINIL 100 MG TABLET PO SCH (08:04)
[2023-01-11] MEDS: KETOROLAC TROMETHAMINE 0.5% 5 ML OPHTHALMIC SOLUTION OD SCH ×4 (08:05→20:38)
[2023-01-11] MEDS: MOXIFLOXACIN HCL 0.5% 3 ML OPHTHALMIC SOLUTION OD SCH ×4 (08:07→20:38)
[2023-01-11] MEDS: METOPROLOL TARTRATE 25 MG TABLET PO SCH ×2 (10:48→17:12)
[2023-01-11] MEDS: MENTHOL/ZINC OXIDE 113 GM OINTMENT TP SCH ×3 (11:37→20:34)
[2023-01-11 16:00] VITALS: BP 116/60
[2023-01-11] MEDS: OLANZapine 5 MG RAPDIS TABLET PO SCH (20:35)
[2023-01-11] MEDS: DOCUSATE SODIUM 250 MG CAPSULE PO SCH (20:35)
[2023-01-11] MEDS: VALPROIC ACID 250 MG/5 ML SOLUTION UDCUP PO SCH (21:16)
[2023-01-12 08:37] VITALS: BP 121/65
[2023-01-12] MEDS: OMEGA-3/DHA/EPA/FISH OIL 1,000 MG CAPSULE PO SCH (09:06)
[2023-01-12] MEDS: NALTREXONE HCL 50 MG TABLET PO SCH (09:07)
[2023-01-12] MEDS: KETOROLAC TROMETHAMINE 0.5% 5 ML OPHTHALMIC SOLUTION OD SCH ×4 (09:07→20:49)
[2023-01-12] MEDS: MODAFINIL 100 MG TABLET PO SCH (09:07)
[2023-01-12] MEDS: METOPROLOL TARTRATE 25 MG TABLET PO SCH ×2 (09:07→17:06)
[2023-01-12] MEDS: MULTIVITAMINS WITH MINERALS, THERAPEUTIC TABLET PO SCH (09:07)
[2023-01-12] MEDS: MOXIFLOXACIN HCL 0.5% 3 ML OPHTHALMIC SOLUTION OD SCH ×4 (09:07→20:48)
[2023-01-12] MEDS: PrednisoLONE ACETATE 1% 5 ML OPHTHALMIC SUSPENSION OD SCH ×3 (09:08→17:05)
[2023-01-12] MEDS: MENTHOL/ZINC OXIDE 113 GM OINTMENT TP SCH ×3 (09:08→20:48)
[2023-01-12 16:03] VITALS: BP 122/67
[2023-01-12] MEDS: OLANZapine 5 MG RAPDIS TABLET PO SCH (20:46)
[2023-01-12] MEDS: DOCUSATE SODIUM 250 MG CAPSULE PO SCH (20:47)
[2023-01-12] MEDS: VALPROIC ACID 250 MG/5 ML SOLUTION UDCUP PO SCH (20:48)
[2023-01-12 21:06] VITALS: BP 145/71
[2023-01-13] MEDS: MULTIVITAMINS WITH MINERALS, THERAPEUTIC TABLET PO SCH (08:55)
[2023-01-13] MEDS: NALTREXONE HCL 50 MG TABLET PO SCH (08:55)
[2023-01-13] MEDS: KETOROLAC TROMETHAMINE 0.5% 5 ML OPHTHALMIC SOLUTION OD SCH ×4 (08:56→20:50)
[2023-01-13] MEDS: MODAFINIL 100 MG TABLET PO SCH (08:56)
[2023-01-13] MEDS: MOXIFLOXACIN HCL 0.5% 3 ML OPHTHALMIC SOLUTION OD SCH ×4 (08:56→20:50)
[2023-01-13] MEDS: PrednisoLONE ACETATE 1% 5 ML OPHTHALMIC SUSPENSION OD SCH ×3 (08:56→17:28)
[2023-01-13] MEDS: METOPROLOL TARTRATE 25 MG TABLET PO SCH ×2 (08:56→17:28)
[2023-01-13] MEDS: OMEGA-3/DHA/EPA/FISH OIL 1,000 MG CAPSULE PO SCH (08:57)
[2023-01-13 09:14] VITALS: BP 139/90
[2023-01-13] MEDS: MENTHOL/ZINC OXIDE 113 GM OINTMENT TP SCH ×3 (09:30→20:49)
[2023-01-13] MEDS: DOCUSATE SODIUM 250 MG CAPSULE PO SCH (20:49)
[2023-01-13] MEDS: OLANZapine 5 MG RAPDIS TABLET PO SCH (20:49)
[2023-01-13] MEDS: VALPROIC ACID 250 MG/5 ML SOLUTION UDCUP PO SCH (20:53)
[2023-01-13 21:35] VITALS: BP 128/75
[2023-01-14 08:13] LABS: COVID AG,FIA SOURCE NASAL SWAB
[2023-01-14] MEDS: OMEGA-3/DHA/EPA/FISH OIL 1,000 MG CAPSULE PO SCH (08:59)
[2023-01-14] MEDS: MULTIVITAMINS WITH MINERALS, THERAPEUTIC TABLET PO SCH (08:59)
[2023-01-14] MEDS: MODAFINIL 100 MG TABLET PO SCH (09:00)
[2023-01-14] MEDS: KETOROLAC TROMETHAMINE 0.5% 5 ML OPHTHALMIC SOLUTION OD SCH ×4 (09:00→20:45)
[2023-01-14] MEDS: METOPROLOL TARTRATE 25 MG TABLET PO SCH ×2 (09:00→16:42)
[2023-01-14] MEDS: MOXIFLOXACIN HCL 0.5% 3 ML OPHTHALMIC SOLUTION OD SCH ×2 (09:00→12:14)
[2023-01-14] MEDS: NALTREXONE HCL 50 MG TABLET PO SCH (09:01)
[2023-01-14] MEDS: PrednisoLONE ACETATE 1% 5 ML OPHTHALMIC SUSPENSION OD SCH ×3 (09:01→16:19)
[2023-01-14] MEDS: MENTHOL/ZINC OXIDE 113 GM OINTMENT TP SCH ×3 (09:01→20:44)
[2023-01-14 09:05] VITALS: BP 141/89
[2023-01-14 18:24] VITALS: BP 118/67
[2023-01-14] MEDS: VALPROIC ACID 250 MG/5 ML SOLUTION UDCUP PO SCH (20:44)
[2023-01-14] MEDS: OLANZapine 5 MG RAPDIS TABLET PO SCH (20:44)
[2023-01-14] MEDS: DOCUSATE SODIUM 250 MG CAPSULE PO SCH (20:45)
[2023-01-14 22:22] VITALS: BP 141/79
[2023-01-15 08:24] VITALS: BP 130/75
[2023-01-15] MEDS: MULTIVITAMINS WITH MINERALS, THERAPEUTIC TABLET PO SCH (08:30)
[2023-01-15] MEDS: METOPROLOL TARTRATE 25 MG TABLET PO SCH ×2 (08:30→16:32)
[2023-01-15] MEDS: OMEGA-3/DHA/EPA/FISH OIL 1,000 MG CAPSULE PO SCH (08:30)
[2023-01-15] MEDS: NALTREXONE HCL 50 MG TABLET PO SCH (08:34)
[2023-01-15] MEDS: MODAFINIL 100 MG TABLET PO SCH (08:34)
[2023-01-15] MEDS: MENTHOL/ZINC OXIDE 113 GM OINTMENT TP SCH ×3 (08:34→20:28)
[2023-01-15] MEDS: KETOROLAC TROMETHAMINE 0.5% 5 ML OPHTHALMIC SOLUTION OD SCH (08:35)
[2023-01-15 08:47] LABS: BASOPHILS % (AUTO) 0.7 % (0.0-2.0); EOSINOPHILS % (AUTO) 12.9 % (1.0-6.0); HEMATOCRIT 35.5 % (36-46); HEMOGLOBIN 11.5 g/dL (12.0-16.0); LYMPHOCYTES # (AUTO) 2.4 K/uL (1.0-4.8); LYMPHOCYTES % (AUTO) 46.2 % (22.0-44.0); MEAN CORPUSCULAR HEMOGLOBIN 27.3 pg (26.0-34.0); MEAN CORPUSCULAR HGB CONC 32.3 G/dL (31.0-37.0); MEAN CORPUSCULAR VOLUME 85 fL (80-100); MONOCYTES # (AUTO) 0.5 K/uL (0.1-1.0); MONOCYTES % (AUTO) 9.2 % (2.0-9.0); NEUTROPHILS # (AUTO) 1.6 K/uL (1.8-7.7); PLATELET COUNT (AUTO) 275 K/uL (150-450); RED CELL DISTRIBUTION WIDTH 18.9 % (11.5-14.5)
[2023-01-15] MEDS ORDERED: PrednisoLONE ACETATE 1% 5 ML OPHTHALMIC SUSPENSION OD SCH (09:00)
[2023-01-15 09:02] LABS: ALBUMIN 2.6 g/dL (3.4-5.0); BILIRUBIN,TOTAL 0.3 mg/dL (0.1-1.0); CALCIUM, TOTAL 8.6 mg/dL (8.8-10.5); CREATININE 1.48 mg/dL (0.60-1.30); POTASSIUM 4.5 mmol/L (3.5-5.1); TOTAL PROTEIN, SERUM 7.9 g/dL (6.4-8.2)
[2023-01-15 16:11] VITALS: BP 120/69
[2023-01-15] MEDS: VALPROIC ACID 250 MG/5 ML SOLUTION UDCUP PO SCH (20:27)
[2023-01-15] MEDS: DOCUSATE SODIUM 250 MG CAPSULE PO SCH (20:28)
[2023-01-15] MEDS: OLANZapine 5 MG RAPDIS TABLET PO SCH (20:28)
[2023-01-15 22:29] VITALS: BP 141/83
[2023-01-16] MEDS: NALTREXONE HCL 50 MG TABLET PO SCH (08:36)
[2023-01-16] MEDS: MODAFINIL 100 MG TABLET PO SCH (08:36)
[2023-01-16] MEDS: MULTIVITAMINS WITH MINERALS, THERAPEUTIC TABLET PO SCH (08:37)
[2023-01-16] MEDS: METOPROLOL TARTRATE 25 MG TABLET PO SCH ×3 (08:37→16:47)
[2023-01-16] MEDS: MENTHOL/ZINC OXIDE 113 GM OINTMENT TP SCH ×3 (08:37→20:30)
[2023-01-16] MEDS: OMEGA-3/DHA/EPA/FISH OIL 1,000 MG CAPSULE PO SCH (08:37)
[2023-01-16 09:18] VITALS: BP 116/90
[2023-01-16 16:48] VITALS: BP 97/53
[2023-01-16 20:19] VITALS: BP 123/64
[2023-01-16] MEDS: DOCUSATE SODIUM 250 MG CAPSULE PO SCH (20:30)
[2023-01-16] MEDS: OLANZapine 5 MG RAPDIS TABLET PO SCH (20:30)
[2023-01-16] MEDS: VALPROIC ACID 250 MG/5 ML SOLUTION UDCUP PO SCH (20:30)
[2023-01-17 08:15] VITALS: BP 130/71
[2023-01-17] MEDS: METOPROLOL TARTRATE 25 MG TABLET PO SCH ×2 (08:52→16:53)
[2023-01-17] MEDS: MODAFINIL 100 MG TABLET PO SCH (08:52)
[2023-01-17] MEDS: MULTIVITAMINS WITH MINERALS, THERAPEUTIC TABLET PO SCH (08:52)
[2023-01-17] MEDS: NALTREXONE HCL 50 MG TABLET PO SCH (08:52)
[2023-01-17] MEDS: OMEGA-3/DHA/EPA/FISH OIL 1,000 MG CAPSULE PO SCH (08:52)
[2023-01-17] MEDS: MENTHOL/ZINC OXIDE 113 GM OINTMENT TP SCH ×3 (08:53→21:32)
[2023-01-17] MEDS: EPOETIN ALFA 10,000 UNITS/ML VIAL SQ SCH (09:00)
[2023-01-17] MEDS: DOCUSATE SODIUM 250 MG CAPSULE PO SCH (20:42)
[2023-01-17] MEDS: OLANZapine 5 MG RAPDIS TABLET PO SCH (20:42)
[2023-01-17] MEDS: VALPROIC ACID 250 MG/5 ML SOLUTION UDCUP PO SCH (20:43)
[2023-01-17 20:53] VITALS: BP 119/84
[2023-01-18] MEDS: MULTIVITAMINS WITH MINERALS, THERAPEUTIC TABLET PO SCH (08:56)
[2023-01-18] MEDS: MODAFINIL 100 MG TABLET PO SCH (08:56)
[2023-01-18] MEDS: OMEGA-3/DHA/EPA/FISH OIL 1,000 MG CAPSULE PO SCH (08:56)
[2023-01-18] MEDS: NALTREXONE HCL 50 MG TABLET PO SCH (08:56)
[2023-01-18] MEDS: METOPROLOL TARTRATE 25 MG TABLET PO SCH ×2 (08:57→16:17)
[2023-01-18] MEDS: MENTHOL/ZINC OXIDE 113 GM OINTMENT TP SCH ×3 (08:58→20:25)
[2023-01-18 09:11] VITALS: BP 140/90
[2023-01-18 16:16] VITALS: BP 121/79
[2023-01-18] MEDS: VALPROIC ACID 250 MG/5 ML SOLUTION UDCUP PO SCH (20:25)
[2023-01-18] MEDS: DOCUSATE SODIUM 250 MG CAPSULE PO SCH (20:25)
[2023-01-18] MEDS: OLANZapine 5 MG RAPDIS TABLET PO SCH (20:25)
[2023-01-18 21:04] VITALS: BP 134/83
[2023-01-19 09:14] VITALS: BP 133/98
[2023-01-19 09:28] LABS: CREATININE 1.58 mg/dL (0.60-1.30); POTASSIUM 4.1 mmol/L (3.5-5.1)
[2023-01-19] MEDS: OMEGA-3/DHA/EPA/FISH OIL 1,000 MG CAPSULE PO SCH (10:01)
[2023-01-19] MEDS: MULTIVITAMINS WITH MINERALS, THERAPEUTIC TABLET PO SCH (10:01)
[2023-01-19] MEDS: MENTHOL/ZINC OXIDE 113 GM OINTMENT TP SCH ×3 (10:02→20:08)
[2023-01-19] MEDS: METOPROLOL TARTRATE 25 MG TABLET PO SCH ×2 (10:02→16:43)
[2023-01-19] MEDS: NALTREXONE HCL 50 MG TABLET PO SCH (10:02)
[2023-01-19] MEDS: MODAFINIL 100 MG TABLET PO SCH (10:02)
[2023-01-19 16:53] VITALS: BP 121/79
[2023-01-19] MEDS: VALPROIC ACID 250 MG/5 ML SOLUTION UDCUP PO SCH (20:07)
[2023-01-19] MEDS: DOCUSATE SODIUM 250 MG CAPSULE PO SCH (20:08)
[2023-01-19] MEDS: OLANZapine 5 MG RAPDIS TABLET PO SCH (20:08)
[2023-01-19 21:27] VITALS: BP 139/68
[2023-01-20] MEDS: MULTIVITAMINS WITH MINERALS, THERAPEUTIC TABLET PO SCH (09:05)
[2023-01-20] MEDS: MODAFINIL 100 MG TABLET PO SCH (09:05)
[2023-01-20] MEDS: METOPROLOL TARTRATE 25 MG TABLET PO SCH ×2 (09:05→16:46)
[2023-01-20] MEDS: OMEGA-3/DHA/EPA/FISH OIL 1,000 MG CAPSULE PO SCH (09:05)
[2023-01-20] MEDS: NALTREXONE HCL 50 MG TABLET PO SCH (09:05)
[2023-01-20] MEDS: MENTHOL/ZINC OXIDE 113 GM OINTMENT TP SCH ×3 (09:08→20:44)
[2023-01-20 09:34] VITALS: BP 126/78
[2023-01-20 16:57] VITALS: BP 119/71
[2023-01-20] MEDS: DOCUSATE SODIUM 250 MG CAPSULE PO SCH (20:43)
[2023-01-20] MEDS: OLANZapine 5 MG RAPDIS TABLET PO SCH (20:43)
[2023-01-20] MEDS: VALPROIC ACID 250 MG/5 ML SOLUTION UDCUP PO SCH (20:43)
[2023-01-20 21:03] VITALS: BP 125/78
[2023-01-21 07:27] LABS: COVID AG,FIA SOURCE NASAL SWAB
[2023-01-21 08:57] VITALS: BP 137/81
[2023-01-21] MEDS: NALTREXONE HCL 50 MG TABLET PO SCH (09:11)
[2023-01-21] MEDS: MULTIVITAMINS WITH MINERALS, THERAPEUTIC TABLET PO SCH (09:11)
[2023-01-21] MEDS: MODAFINIL 100 MG TABLET PO SCH (09:11)
[2023-01-21] MEDS: METOPROLOL TARTRATE 25 MG TABLET PO SCH ×2 (09:11→16:39)
[2023-01-21] MEDS: OMEGA-3/DHA/EPA/FISH OIL 1,000 MG CAPSULE PO SCH (09:12)
[2023-01-21] MEDS: MENTHOL/ZINC OXIDE 113 GM OINTMENT TP SCH ×3 (09:14→20:43)
[2023-01-21 16:10] VITALS: BP 129/66
[2023-01-21] MEDS: DOCUSATE SODIUM 250 MG CAPSULE PO SCH (20:42)
[2023-01-21] MEDS: VALPROIC ACID 250 MG/5 ML SOLUTION UDCUP PO SCH (20:43)
[2023-01-21] MEDS: OLANZapine 5 MG RAPDIS TABLET PO SCH (20:43)
[2023-01-21 23:03] VITALS: BP 142/92
[2023-01-22 00:05] VITALS: BP 116/81
[2023-01-22] MEDS: ACETAMINOPHEN 325 MG TABLET PO PRN (00:06)
[2023-01-22 08:43] VITALS: BP 109/73
[2023-01-22] MEDS: MENTHOL/ZINC OXIDE 113 GM OINTMENT TP SCH ×3 (08:56→20:52)
[2023-01-22] MEDS: MULTIVITAMINS WITH MINERALS, THERAPEUTIC TABLET PO SCH (08:56)
[2023-01-22] MEDS: MODAFINIL 100 MG TABLET PO SCH (08:56)
[2023-01-22] MEDS: NALTREXONE HCL 50 MG TABLET PO SCH (08:56)
[2023-01-22] MEDS: OMEGA-3/DHA/EPA/FISH OIL 1,000 MG CAPSULE PO SCH (08:56)
[2023-01-22] MEDS: METOPROLOL TARTRATE 25 MG TABLET PO SCH ×2 (08:56→18:38)
[2023-01-22] MEDS ORDERED: PrednisoLONE ACETATE 1% 5 ML OPHTHALMIC SUSPENSION OD SCH (09:00)
[2023-01-22 09:03] LABS: BASOPHILS % (AUTO) 0.4 % (0.0-2.0); HEMATOCRIT 36.6 % (36-46); HEMOGLOBIN 11.9 g/dL (12.0-16.0); LYMPHOCYTES # (AUTO) 2.4 K/uL (1.0-4.8); LYMPHOCYTES % (AUTO) 32.7 % (22.0-44.0); MEAN CORPUSCULAR HEMOGLOBIN 27.7 pg (26.0-34.0); MEAN CORPUSCULAR HGB CONC 32.4 G/dL (31.0-37.0); MEAN CORPUSCULAR VOLUME 85 fL (80-100); MONOCYTES # (AUTO) 0.9 K/uL (0.1-1.0); MONOCYTES % (AUTO) 12.2 % (2.0-9.0); NEUTROPHILS # (AUTO) 3.7 K/uL (1.8-7.7); NEUTROPHILS % (AUTO) 50.7 % (40.0-70.0); PLATELET COUNT (AUTO) 368 K/uL (150-450); RED BLOOD CELL COUNT(AUTO) 4.29 MIL/uL (4.00-5.20); RED CELL DISTRIBUTION WIDTH 19.7 % (11.5-14.5)
[2023-01-22 09:18] LABS: ALBUMIN 2.7 g/dL (3.4-5.0); BILIRUBIN,TOTAL 0.4 mg/dL (0.1-1.0); CALCIUM, TOTAL 8.8 mg/dL (8.8-10.5); CREATININE 1.49 mg/dL (0.60-1.30); POTASSIUM 4.4 mmol/L (3.5-5.1); TOTAL PROTEIN, SERUM 7.8 g/dL (6.4-8.2)
[2023-01-22 16:18] VITALS: BP 93/57
[2023-01-22 18:35] VITALS: BP 129/80
[2023-01-22] MEDS: PredniSONE 20 MG TABLET PO SCH (20:51)
[2023-01-22] MEDS: OLANZapine 5 MG RAPDIS TABLET PO SCH (20:51)
[2023-01-22] MEDS: DOCUSATE SODIUM 250 MG CAPSULE PO SCH (20:52)
[2023-01-22] MEDS: VALPROIC ACID 250 MG/5 ML SOLUTION UDCUP PO SCH (20:53)
[2023-01-22 22:11] VITALS: BP 141/72
[2023-01-23 08:51] VITALS: BP 108/69
[2023-01-23] MEDS: MULTIVITAMINS WITH MINERALS, THERAPEUTIC TABLET PO SCH (09:40)
[2023-01-23] MEDS: OMEGA-3/DHA/EPA/FISH OIL 1,000 MG CAPSULE PO SCH (09:40)
[2023-01-23] MEDS: PredniSONE 20 MG TABLET PO SCH (09:40)
[2023-01-23] MEDS: MODAFINIL 100 MG TABLET PO SCH (09:40)
[2023-01-23] MEDS: NALTREXONE HCL 50 MG TABLET PO SCH (09:40)
[2023-01-23] MEDS: MENTHOL/ZINC OXIDE 113 GM OINTMENT TP SCH ×3 (09:41→21:15)
[2023-01-23] MEDS: METOPROLOL TARTRATE 25 MG TABLET PO SCH ×2 (09:41→17:09)
[2023-01-23 16:17] VITALS: BP 115/70
[2023-01-23] MEDS: DOCUSATE SODIUM 250 MG CAPSULE PO SCH (21:15)
[2023-01-23] MEDS: OLANZapine 5 MG RAPDIS TABLET PO SCH (21:17)
[2023-01-23] MEDS: VALPROIC ACID 250 MG/5 ML SOLUTION UDCUP PO SCH (21:18)
[2023-01-24 08:30] VITALS: BP 130/80
[2023-01-24] MEDS: MENTHOL/ZINC OXIDE 113 GM OINTMENT TP SCH ×3 (08:37→21:27)
[2023-01-24] MEDS: METOPROLOL TARTRATE 25 MG TABLET PO SCH ×2 (08:37→16:11)
[2023-01-24] MEDS: OMEGA-3/DHA/EPA/FISH OIL 1,000 MG CAPSULE PO SCH (08:37)
[2023-01-24] MEDS: MULTIVITAMINS WITH MINERALS, THERAPEUTIC TABLET PO SCH (08:37)
[2023-01-24] MEDS: NALTREXONE HCL 50 MG TABLET PO SCH (08:37)
[2023-01-24] MEDS: MODAFINIL 100 MG TABLET PO SCH (08:37)
[2023-01-24] MEDS: PredniSONE 20 MG TABLET PO SCH (08:37)
[2023-01-24] MEDS: EPOETIN ALFA 10,000 UNITS/ML VIAL SQ SCH (11:54)
[2023-01-24 16:33] VITALS: BP 130/75
[2023-01-24 21:05] VITALS: BP 141/86
[2023-01-24] MEDS: VALPROIC ACID 250 MG/5 ML SOLUTION UDCUP PO SCH (21:26)
[2023-01-24] MEDS: OLANZapine 5 MG RAPDIS TABLET PO SCH (21:27)
[2023-01-24] MEDS: DOCUSATE SODIUM 250 MG CAPSULE PO SCH (21:27)
[2023-01-25 08:30] VITALS: BP 132/75
[2023-01-25] MEDS: PredniSONE 20 MG TABLET PO SCH ×2 (09:00→10:31)
[2023-01-25] MEDS: OMEGA-3/DHA/EPA/FISH OIL 1,000 MG CAPSULE PO SCH (09:35)
[2023-01-25] MEDS: METOPROLOL TARTRATE 25 MG TABLET PO SCH ×2 (09:35→16:25)
[2023-01-25] MEDS: MULTIVITAMINS WITH MINERALS, THERAPEUTIC TABLET PO SCH (09:39)
[2023-01-25] MEDS: MODAFINIL 100 MG TABLET PO SCH (09:39)
[2023-01-25] MEDS: NALTREXONE HCL 50 MG TABLET PO SCH (09:40)
[2023-01-25] MEDS: MENTHOL/ZINC OXIDE 113 GM OINTMENT TP SCH ×3 (09:43→20:55)
[2023-01-25 16:43] VITALS: BP 115/67
[2023-01-25] MEDS: VALPROIC ACID 250 MG/5 ML SOLUTION UDCUP PO SCH (20:55)
[2023-01-25] MEDS: DOCUSATE SODIUM 250 MG CAPSULE PO SCH (20:56)
[2023-01-25] MEDS: OLANZapine 5 MG RAPDIS TABLET PO SCH (20:57)
[2023-01-25 21:00] VITALS: BP 130/66
[2023-01-26 08:49] VITALS: BP 130/86
[2023-01-26] MEDS: PredniSONE 20 MG TABLET PO SCH (10:18)
[2023-01-26] MEDS: MULTIVITAMINS WITH MINERALS, THERAPEUTIC TABLET PO SCH (10:18)
[2023-01-26] MEDS: OMEGA-3/DHA/EPA/FISH OIL 1,000 MG CAPSULE PO SCH (10:18)
[2023-01-26] MEDS: NALTREXONE HCL 50 MG TABLET PO SCH (10:18)
[2023-01-26] MEDS: METOPROLOL TARTRATE 25 MG TABLET PO SCH ×2 (10:19→16:34)
[2023-01-26] MEDS: MODAFINIL 100 MG TABLET PO SCH (10:19)
[2023-01-26] MEDS: MENTHOL/ZINC OXIDE 113 GM OINTMENT TP SCH ×3 (10:22→21:11)
[2023-01-26 16:30] VITALS: BP 126/62
[2023-01-26] MEDS: DOCUSATE SODIUM 250 MG CAPSULE PO SCH (21:09)
[2023-01-26] MEDS: VALPROIC ACID 250 MG/5 ML SOLUTION UDCUP PO SCH (21:10)
[2023-01-26] MEDS: OLANZapine 5 MG RAPDIS TABLET PO SCH (21:10)
[2023-01-26 22:12] VITALS: BP 139/76
[2023-01-27] MEDS: OMEGA-3/DHA/EPA/FISH OIL 1,000 MG CAPSULE PO SCH (08:48)
[2023-01-27] MEDS: MENTHOL/ZINC OXIDE 113 GM OINTMENT TP SCH ×3 (08:48→20:40)
[2023-01-27] MEDS: NALTREXONE HCL 50 MG TABLET PO SCH (08:48)
[2023-01-27] MEDS: MULTIVITAMINS WITH MINERALS, THERAPEUTIC TABLET PO SCH (08:48)
[2023-01-27] MEDS: PredniSONE 20 MG TABLET PO SCH (08:49)
[2023-01-27] MEDS: MODAFINIL 100 MG TABLET PO SCH (08:49)
[2023-01-27] MEDS: METOPROLOL TARTRATE 25 MG TABLET PO SCH ×2 (08:50→16:45)
[2023-01-27 08:53] VITALS: BP 104/70
[2023-01-27 16:19] VITALS: BP 109/76
[2023-01-27] MEDS: OLANZapine 5 MG RAPDIS TABLET PO SCH (20:40)
[2023-01-27] MEDS: DOCUSATE SODIUM 250 MG CAPSULE PO SCH (20:40)
[2023-01-27] MEDS: VALPROIC ACID 250 MG/5 ML SOLUTION UDCUP PO SCH (20:40)
[2023-01-27 21:34] VITALS: BP 134/79
[2023-01-28 07:50] LABS: COVID AG,FIA SOURCE NASAL SWAB
[2023-01-28 08:08] VITALS: BP 112/60
[2023-01-28] MEDS: MODAFINIL 100 MG TABLET PO SCH (09:05)
[2023-01-28] MEDS: MULTIVITAMINS WITH MINERALS, THERAPEUTIC TABLET PO SCH (09:05)
[2023-01-28] MEDS: MENTHOL/ZINC OXIDE 113 GM OINTMENT TP SCH (09:06)
[2023-01-28] MEDS: NALTREXONE HCL 50 MG TABLET PO SCH (09:06)
[2023-01-28] MEDS: PredniSONE 10 MG TABLET PO SCH (09:06)
[2023-01-28] MEDS: OMEGA-3/DHA/EPA/FISH OIL 1,000 MG CAPSULE PO SCH (09:06)
[2023-01-28] MEDS: METOPROLOL TARTRATE 25 MG TABLET PO SCH ×2 (09:06→17:00)
[2023-01-28 16:00] VITALS: BP 103/67
[2023-01-28 21:04] VITALS: BP 123/76
[2023-01-28] MEDS: DOCUSATE SODIUM 250 MG CAPSULE PO SCH (21:20)
[2023-01-28] MEDS: OLANZapine 5 MG RAPDIS TABLET PO SCH (21:20)
[2023-01-28] MEDS: VALPROIC ACID 250 MG/5 ML SOLUTION UDCUP PO SCH (21:21)
[2023-01-29] MEDS: NALTREXONE HCL 50 MG TABLET PO SCH (08:56)
[2023-01-29] MEDS: MULTIVITAMINS WITH MINERALS, THERAPEUTIC TABLET PO SCH (08:57)
[2023-01-29] MEDS: MODAFINIL 100 MG TABLET PO SCH (08:57)
[2023-01-29] MEDS: PredniSONE 10 MG TABLET PO SCH (08:57)
[2023-01-29] MEDS: OMEGA-3/DHA/EPA/FISH OIL 1,000 MG CAPSULE PO SCH (08:57)
[2023-01-29] MEDS: METOPROLOL TARTRATE 25 MG TABLET PO SCH ×2 (08:57→16:47)
[2023-01-29 10:59] VITALS: BP 131/94
[2023-01-29 16:24] VITALS: BP 125/76
[2023-01-29 21:00] VITALS: BP 103/62
[2023-01-29] MEDS: MENTHOL/ZINC OXIDE 113 GM OINTMENT TP PRN (21:05)
[2023-01-29] MEDS: VALPROIC ACID 250 MG/5 ML SOLUTION UDCUP PO SCH (21:18)
[2023-01-29] MEDS: OLANZapine 5 MG RAPDIS TABLET PO SCH (21:19)
[2023-01-29] MEDS: DOCUSATE SODIUM 250 MG CAPSULE PO SCH (21:19)
[2023-01-30 08:00] VITALS: BP 114/65
[2023-01-30] MEDS: NALTREXONE HCL 50 MG TABLET PO SCH (10:13)
[2023-01-30] MEDS: MULTIVITAMINS WITH MINERALS, THERAPEUTIC TABLET PO SCH (10:13)
[2023-01-30] MEDS: OMEGA-3/DHA/EPA/FISH OIL 1,000 MG CAPSULE PO SCH (10:13)
[2023-01-30] MEDS: PredniSONE 10 MG TABLET PO SCH (10:13)
[2023-01-30] MEDS: MODAFINIL 100 MG TABLET PO SCH (10:13)
[2023-01-30] MEDS: METOPROLOL TARTRATE 25 MG TABLET PO SCH ×2 (10:13→17:27)
[2023-01-30 16:44] VITALS: BP 99/69
[2023-01-30] MEDS: VALPROIC ACID 250 MG/5 ML SOLUTION UDCUP PO SCH (20:54)
[2023-01-30] MEDS: OLANZapine 5 MG RAPDIS TABLET PO SCH (20:54)
[2023-01-30] MEDS: DOCUSATE SODIUM 250 MG CAPSULE PO SCH (20:54)
[2023-01-30 21:10] VITALS: BP 137/70
[2023-01-31] MEDS: MULTIVITAMINS WITH MINERALS, THERAPEUTIC TABLET PO SCH (09:03)
[2023-01-31] MEDS: MODAFINIL 100 MG TABLET PO SCH (09:04)
[2023-01-31] MEDS: METOPROLOL TARTRATE 25 MG TABLET PO SCH ×2 (09:04→16:32)
[2023-01-31] MEDS: OMEGA-3/DHA/EPA/FISH OIL 1,000 MG CAPSULE PO SCH (09:04)
[2023-01-31] MEDS: NALTREXONE HCL 50 MG TABLET PO SCH (09:04)
[2023-01-31] MEDS: EPOETIN ALFA 10,000 UNITS/ML VIAL SQ SCH (09:13)
[2023-01-31 11:09] VITALS: BP 154/90
[2023-01-31 16:20] VITALS: BP 134/80
[2023-01-31 20:33] VITALS: BP 101/63
[2023-01-31] MEDS: VALPROIC ACID 250 MG/5 ML SOLUTION UDCUP PO SCH (21:47)
[2023-01-31] MEDS: OLANZapine 5 MG RAPDIS TABLET PO SCH (21:47)
[2023-01-31] MEDS: DOCUSATE SODIUM 250 MG CAPSULE PO SCH (21:47)
[2023-02-01] MEDS: OMEGA-3/DHA/EPA/FISH OIL 1,000 MG CAPSULE PO SCH (08:22)
[2023-02-01] MEDS: MODAFINIL 100 MG TABLET PO SCH (08:22)
[2023-02-01] MEDS: METOPROLOL TARTRATE 25 MG TABLET PO SCH ×2 (08:22→16:37)
[2023-02-01] MEDS: NALTREXONE HCL 50 MG TABLET PO SCH (08:22)
[2023-02-01] MEDS: MULTIVITAMINS WITH MINERALS, THERAPEUTIC TABLET PO SCH (08:22)
[2023-02-01 13:12] VITALS: BP 131/71
[2023-02-01 16:20] VITALS: BP 148/83
[2023-02-01] MEDS: VALPROIC ACID 250 MG/5 ML SOLUTION UDCUP PO SCH (21:01)
[2023-02-01] MEDS: DOCUSATE SODIUM 250 MG CAPSULE PO SCH (21:02)
[2023-02-01] MEDS: OLANZapine 5 MG RAPDIS TABLET PO SCH (21:02)
[2023-02-01 22:37] VITALS: BP 120/72
[2023-02-02] MEDS: MULTIVITAMINS WITH MINERALS, THERAPEUTIC TABLET PO SCH (09:53)
[2023-02-02] MEDS: OMEGA-3/DHA/EPA/FISH OIL 1,000 MG CAPSULE PO SCH (09:53)
[2023-02-02] MEDS: MODAFINIL 100 MG TABLET PO SCH (09:54)
[2023-02-02] MEDS: NALTREXONE HCL 50 MG TABLET PO SCH (09:54)
[2023-02-02] MEDS: METOPROLOL TARTRATE 25 MG TABLET PO SCH ×2 (09:54→16:43)
[2023-02-02 10:18] VITALS: BP 126/74
[2023-02-02 18:26] VITALS: BP 124/66
[2023-02-02] MEDS: DOCUSATE SODIUM 250 MG CAPSULE PO SCH (20:38)
[2023-02-02] MEDS: OLANZapine 5 MG RAPDIS TABLET PO SCH (20:38)
[2023-02-02] MEDS: VALPROIC ACID 250 MG/5 ML SOLUTION UDCUP PO SCH (20:39)
[2023-02-02 21:10] VITALS: BP 123/71
[2023-02-03] MEDS: MULTIVITAMINS WITH MINERALS, THERAPEUTIC TABLET PO SCH (09:15)
[2023-02-03] MEDS: MODAFINIL 100 MG TABLET PO SCH (09:15)
[2023-02-03] MEDS: OMEGA-3/DHA/EPA/FISH OIL 1,000 MG CAPSULE PO SCH (09:15)
[2023-02-03] MEDS: NALTREXONE HCL 50 MG TABLET PO SCH (09:16)
[2023-02-03] MEDS: METOPROLOL TARTRATE 25 MG TABLET PO SCH ×2 (09:16→16:37)
[2023-02-03 09:37] VITALS: BP 122/69
[2023-02-03 16:03] VITALS: BP 121/67
[2023-02-03 20:15] VITALS: BP 121/77
[2023-02-03] MEDS: DOCUSATE SODIUM 250 MG CAPSULE PO SCH (20:53)
[2023-02-03] MEDS: OLANZapine 5 MG RAPDIS TABLET PO SCH (20:54)
[2023-02-03] MEDS: VALPROIC ACID 250 MG/5 ML SOLUTION UDCUP PO SCH (20:55)
[2023-02-04 06:44] LABS: COVID AG,FIA SOURCE NASAL SWAB
[2023-02-04 09:00] VITALS: BP 128/93
[2023-02-04] MEDS: MULTIVITAMINS WITH MINERALS, THERAPEUTIC TABLET PO SCH (09:03)
[2023-02-04] MEDS: NALTREXONE HCL 50 MG TABLET PO SCH (09:03)
[2023-02-04] MEDS: MODAFINIL 100 MG TABLET PO SCH (09:03)
[2023-02-04] MEDS: OMEGA-3/DHA/EPA/FISH OIL 1,000 MG CAPSULE PO SCH (09:03)
[2023-02-04] MEDS: METOPROLOL TARTRATE 25 MG TABLET PO SCH ×2 (09:03→17:22)
[2023-02-04 16:25] VITALS: BP 131/87
[2023-02-04 16:26] VITALS: BP 131/87
[2023-02-04] MEDS: VALPROIC ACID 250 MG/5 ML SOLUTION UDCUP PO SCH (20:54)
[2023-02-04] MEDS: DOCUSATE SODIUM 250 MG CAPSULE PO SCH (20:54)
[2023-02-04] MEDS: OLANZapine 5 MG RAPDIS TABLET PO SCH (20:55)
[2023-02-04 21:38] VITALS: BP 145/89
[2023-02-05 08:42] LABS: CALCIUM, TOTAL 9.1 mg/dL (8.8-10.5); CREATININE 1.37 mg/dL (0.60-1.30); POTASSIUM 4.2 mmol/L (3.5-5.1)
[2023-02-05 08:53] VITALS: BP 154/87
[2023-02-05] MEDS: OMEGA-3/DHA/EPA/FISH OIL 1,000 MG CAPSULE PO SCH (09:16)
[2023-02-05] MEDS: METOPROLOL TARTRATE 25 MG TABLET PO SCH ×2 (09:16→16:16)
[2023-02-05] MEDS: NALTREXONE HCL 50 MG TABLET PO SCH (09:16)
[2023-02-05] MEDS: MODAFINIL 100 MG TABLET PO SCH (09:17)
[2023-02-05] MEDS: MULTIVITAMINS WITH MINERALS, THERAPEUTIC TABLET PO SCH (09:17)
[2023-02-05 16:40] VITALS: BP 139/66
[2023-02-05] MEDS: VALPROIC ACID 250 MG/5 ML SOLUTION UDCUP PO SCH (20:48)
[2023-02-05] MEDS: OLANZapine 5 MG RAPDIS TABLET PO SCH (20:49)
[2023-02-05] MEDS: DOCUSATE SODIUM 250 MG CAPSULE PO SCH (20:49)
[2023-02-05 22:49] VITALS: BP 128/66
[2023-02-06 08:39] VITALS: BP 137/101
[2023-02-06] MEDS: NALTREXONE HCL 50 MG TABLET PO SCH (09:04)
[2023-02-06] MEDS: METOPROLOL TARTRATE 25 MG TABLET PO SCH ×2 (09:04→16:29)
[2023-02-06] MEDS: MULTIVITAMINS WITH MINERALS, THERAPEUTIC TABLET PO SCH (09:04)
[2023-02-06] MEDS: OMEGA-3/DHA/EPA/FISH OIL 1,000 MG CAPSULE PO SCH (09:04)
[2023-02-06] MEDS: MODAFINIL 100 MG TABLET PO SCH (09:05)
[2023-02-06 16:26] VITALS: BP 141/69
[2023-02-06] MEDS: OLANZapine 5 MG RAPDIS TABLET PO SCH (20:28)
[2023-02-06] MEDS: DOCUSATE SODIUM 250 MG CAPSULE PO SCH (20:29)
[2023-02-06] MEDS: VALPROIC ACID 250 MG/5 ML SOLUTION UDCUP PO SCH (20:29)
[2023-02-06 21:30] VITALS: BP 112/62
[2023-02-07] MEDS: MENTHOL/ZINC OXIDE 113 GM OINTMENT TP PRN (06:30)
[2023-02-07 08:37] VITALS: BP 125/83
[2023-02-07] MEDS: OMEGA-3/DHA/EPA/FISH OIL 1,000 MG CAPSULE PO SCH (09:36)
[2023-02-07] MEDS: MULTIVITAMINS WITH MINERALS, THERAPEUTIC TABLET PO SCH (09:37)
[2023-02-07] MEDS: MODAFINIL 100 MG TABLET PO SCH (09:37)
[2023-02-07] MEDS: METOPROLOL TARTRATE 25 MG TABLET PO SCH ×2 (09:37→16:20)
[2023-02-07] MEDS: NALTREXONE HCL 50 MG TABLET PO SCH (09:37)
[2023-02-07] MEDS: EPOETIN ALFA 10,000 UNITS/ML VIAL SQ SCH (09:39)
[2023-02-07 16:14] VITALS: BP 127/75
[2023-02-07 20:59] VITALS: BP 129/51
[2023-02-07] MEDS: VALPROIC ACID 250 MG/5 ML SOLUTION UDCUP PO SCH (21:32)
[2023-02-07] MEDS: DOCUSATE SODIUM 250 MG CAPSULE PO SCH (21:33)
[2023-02-07] MEDS: OLANZapine 5 MG RAPDIS TABLET PO SCH (21:33)
[2023-02-08] MEDS: MENTHOL/ZINC OXIDE 113 GM OINTMENT TP PRN (06:55)
[2023-02-08] MEDS: MULTIVITAMINS WITH MINERALS, THERAPEUTIC TABLET PO SCH (08:34)
[2023-02-08] MEDS: OMEGA-3/DHA/EPA/FISH OIL 1,000 MG CAPSULE PO SCH (08:34)
[2023-02-08] MEDS: METOPROLOL TARTRATE 25 MG TABLET PO SCH ×2 (08:35→16:50)
[2023-02-08] MEDS: NALTREXONE HCL 50 MG TABLET PO SCH (08:35)
[2023-02-08] MEDS: MODAFINIL 100 MG TABLET PO SCH (08:35)
[2023-02-08 08:46] VITALS: BP 126/90
[2023-02-08 16:26] VITALS: BP 124/82
[2023-02-08] MEDS: DOCUSATE SODIUM 250 MG CAPSULE PO SCH (20:14)
[2023-02-08] MEDS: OLANZapine 5 MG RAPDIS TABLET PO SCH (20:14)
[2023-02-08] MEDS: VALPROIC ACID 250 MG/5 ML SOLUTION UDCUP PO SCH (20:14)
[2023-02-08 21:42] VITALS: BP 119/80
[2023-02-09] MEDS: METOPROLOL TARTRATE 25 MG TABLET PO SCH ×2 (08:58→16:30)
[2023-02-09] MEDS: MODAFINIL 100 MG TABLET PO SCH (08:58)
[2023-02-09] MEDS: OMEGA-3/DHA/EPA/FISH OIL 1,000 MG CAPSULE PO SCH (08:58)
[2023-02-09] MEDS: NALTREXONE HCL 50 MG TABLET PO SCH (08:58)
[2023-02-09] MEDS: MULTIVITAMINS WITH MINERALS, THERAPEUTIC TABLET PO SCH (08:58)
[2023-02-09 09:28] VITALS: BP 131/73
[2023-02-09 16:06] VITALS: BP 140/91
[2023-02-09] MEDS: OLANZapine 5 MG RAPDIS TABLET PO SCH (20:10)
[2023-02-09] MEDS: VALPROIC ACID 250 MG/5 ML SOLUTION UDCUP PO SCH (20:10)
[2023-02-09] MEDS: DOCUSATE SODIUM 250 MG CAPSULE PO SCH (20:10)
[2023-02-09 20:28] VITALS: BP 119/79
[2023-02-10 08:00] VITALS: BP 133/85
[2023-02-10] MEDS: MULTIVITAMINS WITH MINERALS, THERAPEUTIC TABLET PO SCH (09:44)
[2023-02-10] MEDS: NALTREXONE HCL 50 MG TABLET PO SCH (09:44)
[2023-02-10] MEDS: OMEGA-3/DHA/EPA/FISH OIL 1,000 MG CAPSULE PO SCH (09:44)
[2023-02-10] MEDS: MODAFINIL 100 MG TABLET PO SCH (09:44)
[2023-02-10] MEDS: METOPROLOL TARTRATE 25 MG TABLET PO SCH ×2 (09:45→16:40)
[2023-02-10 16:00] VITALS: BP 127/70
[2023-02-10] MEDS: VALPROIC ACID 250 MG/5 ML SOLUTION UDCUP PO SCH (20:56)
[2023-02-10] MEDS: DOCUSATE SODIUM 250 MG CAPSULE PO SCH (20:56)
[2023-02-10] MEDS: OLANZapine 5 MG RAPDIS TABLET PO SCH (20:56)
[2023-02-10 22:16] VITALS: BP 112/66
[2023-02-11 07:57] LABS: COVID AG,FIA SOURCE NASAL SWAB
[2023-02-11] MEDS: NALTREXONE HCL 50 MG TABLET PO SCH (08:42)
[2023-02-11] MEDS: METOPROLOL TARTRATE 25 MG TABLET PO SCH ×2 (08:42→16:37)
[2023-02-11] MEDS: MODAFINIL 100 MG TABLET PO SCH (08:42)
[2023-02-11] MEDS: OMEGA-3/DHA/EPA/FISH OIL 1,000 MG CAPSULE PO SCH (08:43)
[2023-02-11] MEDS: MULTIVITAMINS WITH MINERALS, THERAPEUTIC TABLET PO SCH (08:43)
[2023-02-11 08:47] VITALS: BP 149/80
[2023-02-11 16:31] VITALS: BP 122/80
[2023-02-11] MEDS: OLANZapine 5 MG RAPDIS TABLET PO SCH (21:36)
[2023-02-11] MEDS: VALPROIC ACID 250 MG/5 ML SOLUTION UDCUP PO SCH (21:36)
[2023-02-11] MEDS: DOCUSATE SODIUM 250 MG CAPSULE PO SCH (21:36)
[2023-02-11 22:37] VITALS: BP 121/77
[2023-02-12] MEDS: MODAFINIL 100 MG TABLET PO SCH (08:33)
[2023-02-12] MEDS: MULTIVITAMINS WITH MINERALS, THERAPEUTIC TABLET PO SCH (08:33)
[2023-02-12] MEDS: OMEGA-3/DHA/EPA/FISH OIL 1,000 MG CAPSULE PO SCH (08:33)
[2023-02-12] MEDS: NALTREXONE HCL 50 MG TABLET PO SCH (08:33)
[2023-02-12] MEDS: METOPROLOL TARTRATE 25 MG TABLET PO SCH ×2 (08:34→16:04)
[2023-02-12 09:05] VITALS: BP 117/78
[2023-02-12 16:02] VITALS: BP 125/85
[2023-02-12 20:59] VITALS: BP 117/69
[2023-02-12] MEDS: DOCUSATE SODIUM 250 MG CAPSULE PO SCH (21:08)
[2023-02-12] MEDS: VALPROIC ACID 250 MG/5 ML SOLUTION UDCUP PO SCH (21:09)
[2023-02-12] MEDS: OLANZapine 5 MG RAPDIS TABLET PO SCH (21:09)
[2023-02-13 08:00] VITALS: BP 109/87
[2023-02-13] MEDS: METOPROLOL TARTRATE 25 MG TABLET PO SCH ×2 (08:07→16:23)
[2023-02-13] MEDS: MULTIVITAMINS WITH MINERALS, THERAPEUTIC TABLET PO SCH (08:07)
[2023-02-13] MEDS: MODAFINIL 100 MG TABLET PO SCH (08:07)
[2023-02-13] MEDS: OMEGA-3/DHA/EPA/FISH OIL 1,000 MG CAPSULE PO SCH (08:07)
[2023-02-13] MEDS: NALTREXONE HCL 50 MG TABLET PO SCH (08:08)
[2023-02-13 16:09] VITALS: BP 134/78
[2023-02-13] MEDS: VALPROIC ACID 250 MG/5 ML SOLUTION UDCUP PO SCH (20:29)
[2023-02-13] MEDS: OLANZapine 5 MG RAPDIS TABLET PO SCH (20:29)
[2023-02-13] MEDS: DOCUSATE SODIUM 250 MG CAPSULE PO SCH (20:30)
[2023-02-13 21:53] VITALS: BP 137/81
[2023-02-14 08:00] VITALS: BP 131/98
[2023-02-14] MEDS: METOPROLOL TARTRATE 25 MG TABLET PO SCH ×2 (09:21→16:20)
[2023-02-14] MEDS: MODAFINIL 100 MG TABLET PO SCH (09:21)
[2023-02-14] MEDS: NALTREXONE HCL 50 MG TABLET PO SCH (09:21)
[2023-02-14] MEDS: OMEGA-3/DHA/EPA/FISH OIL 1,000 MG CAPSULE PO SCH (09:21)
[2023-02-14] MEDS: MULTIVITAMINS WITH MINERALS, THERAPEUTIC TABLET PO SCH (09:21)
[2023-02-14] MEDS: EPOETIN ALFA 10,000 UNITS/ML VIAL SQ SCH (09:23)
[2023-02-14 16:00] VITALS: BP 129/94
[2023-02-14] MEDS: DOCUSATE SODIUM 250 MG CAPSULE PO SCH (21:11)
[2023-02-14] MEDS: VALPROIC ACID 250 MG/5 ML SOLUTION UDCUP PO SCH (21:12)
[2023-02-14] MEDS: OLANZapine 5 MG RAPDIS TABLET PO SCH (21:12)
[2023-02-14 22:17] VITALS: BP 136/86
[2023-02-15 09:14] VITALS: BP 130/80
[2023-02-15] MEDS: MULTIVITAMINS WITH MINERALS, THERAPEUTIC TABLET PO SCH (09:29)
[2023-02-15] MEDS: NALTREXONE HCL 50 MG TABLET PO SCH (09:29)
[2023-02-15] MEDS: METOPROLOL TARTRATE 25 MG TABLET PO SCH ×2 (09:30→17:51)
[2023-02-15] MEDS: OMEGA-3/DHA/EPA/FISH OIL 1,000 MG CAPSULE PO SCH (09:30)
[2023-02-15] MEDS: MODAFINIL 100 MG TABLET PO SCH (09:30)
[2023-02-15 16:21] VITALS: BP 125/86
[2023-02-15] MEDS: VALPROIC ACID 250 MG/5 ML SOLUTION UDCUP PO SCH (20:33)
[2023-02-15] MEDS: OLANZapine 5 MG RAPDIS TABLET PO SCH (20:34)
[2023-02-15] MEDS: DOCUSATE SODIUM 250 MG CAPSULE PO SCH (20:34)
[2023-02-15 21:28] VITALS: BP 123/83
[2023-02-16 09:25] VITALS: BP 130/97
[2023-02-16] MEDS: METOPROLOL TARTRATE 25 MG TABLET PO SCH ×2 (09:38→16:17)
[2023-02-16] MEDS: NALTREXONE HCL 50 MG TABLET PO SCH (09:38)
[2023-02-16] MEDS: OMEGA-3/DHA/EPA/FISH OIL 1,000 MG CAPSULE PO SCH (09:38)
[2023-02-16] MEDS: MULTIVITAMINS WITH MINERALS, THERAPEUTIC TABLET PO SCH (09:38)
[2023-02-16] MEDS: MODAFINIL 100 MG TABLET PO SCH (09:39)
[2023-02-16 16:28] VITALS: BP 143/67
[2023-02-16] MEDS: VALPROIC ACID 250 MG/5 ML SOLUTION UDCUP PO SCH (20:38)
[2023-02-16] MEDS: OLANZapine 5 MG RAPDIS TABLET PO SCH (20:40)
[2023-02-16] MEDS: DOCUSATE SODIUM 250 MG CAPSULE PO SCH (20:41)
[2023-02-16 21:27] VITALS: BP 121/76
[2023-02-17 08:06] VITALS: BP 152/67
[2023-02-17] MEDS: OMEGA-3/DHA/EPA/FISH OIL 1,000 MG CAPSULE PO SCH (09:29)
[2023-02-17] MEDS: METOPROLOL TARTRATE 25 MG TABLET PO SCH ×2 (09:29→17:33)
[2023-02-17] MEDS: NALTREXONE HCL 50 MG TABLET PO SCH (09:29)
[2023-02-17] MEDS: MULTIVITAMINS WITH MINERALS, THERAPEUTIC TABLET PO SCH (09:30)
[2023-02-17] MEDS: MODAFINIL 100 MG TABLET PO SCH (09:30)
[2023-02-17 16:29] VITALS: BP 101/62
[2023-02-17 17:34] VITALS: BP 146/94
[2023-02-17] MEDS: VALPROIC ACID 250 MG/5 ML SOLUTION UDCUP PO SCH (20:30)
[2023-02-17] MEDS: OLANZapine 5 MG RAPDIS TABLET PO SCH (20:30)
[2023-02-17] MEDS: DOCUSATE SODIUM 250 MG CAPSULE PO SCH (20:30)
[2023-02-17 20:44] VITALS: BP 124/77
[2023-02-18 07:21] LABS: COVID AG,FIA SOURCE NASAL SWAB
[2023-02-18] MEDS: MULTIVITAMINS WITH MINERALS, THERAPEUTIC TABLET PO SCH (08:40)
[2023-02-18] MEDS: OMEGA-3/DHA/EPA/FISH OIL 1,000 MG CAPSULE PO SCH (08:40)
[2023-02-18] MEDS: MODAFINIL 100 MG TABLET PO SCH (08:41)
[2023-02-18] MEDS: NALTREXONE HCL 50 MG TABLET PO SCH (08:41)
[2023-02-18] MEDS: METOPROLOL TARTRATE 25 MG TABLET PO SCH ×2 (08:41→17:05)
[2023-02-18 09:17] VITALS: BP 105/73
[2023-02-18 16:26] VITALS: BP 120/64
[2023-02-18 20:30] VITALS: BP 112/74
[2023-02-18] MEDS: VALPROIC ACID 250 MG/5 ML SOLUTION UDCUP PO SCH (20:45)
[2023-02-18] MEDS: OLANZapine 5 MG RAPDIS TABLET PO SCH (20:46)
[2023-02-18] MEDS: DOCUSATE SODIUM 250 MG CAPSULE PO SCH (20:46)
[2023-02-18 21:34] VITALS: BP 112/74
[2023-02-19 08:54] VITALS: BP 146/74
[2023-02-19] MEDS: OMEGA-3/DHA/EPA/FISH OIL 1,000 MG CAPSULE PO SCH (09:33)
[2023-02-19] MEDS: NALTREXONE HCL 50 MG TABLET PO SCH (09:33)
[2023-02-19] MEDS: MODAFINIL 100 MG TABLET PO SCH (09:33)
[2023-02-19] MEDS: MULTIVITAMINS WITH MINERALS, THERAPEUTIC TABLET PO SCH (09:33)
[2023-02-19] MEDS: METOPROLOL TARTRATE 25 MG TABLET PO SCH ×2 (09:34→16:23)
[2023-02-19 16:09] VITALS: BP 137/88
[2023-02-19 20:14] VITALS: BP 120/74
[2023-02-19] MEDS: VALPROIC ACID 250 MG/5 ML SOLUTION UDCUP PO SCH (21:30)
[2023-02-19] MEDS: DOCUSATE SODIUM 250 MG CAPSULE PO SCH (22:34)
[2023-02-19] MEDS: OLANZapine 5 MG RAPDIS TABLET PO SCH (22:34)
[2023-02-20 08:37] VITALS: BP 128/79
[2023-02-20] MEDS: MULTIVITAMINS WITH MINERALS, THERAPEUTIC TABLET PO SCH (09:23)
[2023-02-20] MEDS: OMEGA-3/DHA/EPA/FISH OIL 1,000 MG CAPSULE PO SCH (09:23)
[2023-02-20] MEDS: MODAFINIL 100 MG TABLET PO SCH (09:24)
[2023-02-20] MEDS: METOPROLOL TARTRATE 25 MG TABLET PO SCH ×2 (09:24→17:02)
[2023-02-20] MEDS: NALTREXONE HCL 50 MG TABLET PO SCH (09:24)
[2023-02-20 16:10] VITALS: BP 137/87
[2023-02-20] MEDS: VALPROIC ACID 250 MG/5 ML SOLUTION UDCUP PO SCH (21:06)
[2023-02-20] MEDS: OLANZapine 5 MG RAPDIS TABLET PO SCH (21:07)
[2023-02-20] MEDS: DOCUSATE SODIUM 250 MG CAPSULE PO SCH (21:07)
[2023-02-20 21:25] VITALS: BP 127/81
[2023-02-21 08:48] VITALS: BP 125/75
[2023-02-21] MEDS: OMEGA-3/DHA/EPA/FISH OIL 1,000 MG CAPSULE PO SCH (09:44)
[2023-02-21] MEDS: MODAFINIL 100 MG TABLET PO SCH (09:44)
[2023-02-21] MEDS: MULTIVITAMINS WITH MINERALS, THERAPEUTIC TABLET PO SCH (09:44)
[2023-02-21] MEDS: METOPROLOL TARTRATE 25 MG TABLET PO SCH ×2 (09:44→16:43)
[2023-02-21] MEDS: NALTREXONE HCL 50 MG TABLET PO SCH (09:44)
[2023-02-21] MEDS: EPOETIN ALFA 10,000 UNITS/ML VIAL SQ SCH (09:49)
[2023-02-21 16:13] VITALS: BP 135/81
[2023-02-21] MEDS: OLANZapine 5 MG RAPDIS TABLET PO SCH (20:14)
[2023-02-21] MEDS: DOCUSATE SODIUM 250 MG CAPSULE PO SCH (20:14)
[2023-02-21] MEDS: VALPROIC ACID 250 MG/5 ML SOLUTION UDCUP PO SCH (20:14)
[2023-02-21 20:21] VITALS: BP 123/81
[2023-02-22 08:12] VITALS: BP 137/60
[2023-02-22 09:56] VITALS: BP 137/68
[2023-02-22] MEDS: OMEGA-3/DHA/EPA/FISH OIL 1,000 MG CAPSULE PO SCH (09:56)
[2023-02-22] MEDS: ACETAMINOPHEN 325 MG TABLET PO PRN (09:56)
[2023-02-22] MEDS: NALTREXONE HCL 50 MG TABLET PO SCH (09:57)
[2023-02-22] MEDS: MULTIVITAMINS WITH MINERALS, THERAPEUTIC TABLET PO SCH (09:57)
[2023-02-22] MEDS: METOPROLOL TARTRATE 25 MG TABLET PO SCH ×2 (09:57→16:13)
[2023-02-22] MEDS: MODAFINIL 100 MG TABLET PO SCH (09:57)
[2023-02-22 16:20] VITALS: BP 113/78
[2023-02-22 19:55] VITALS: BP 143/94
[2023-02-22 20:05] VITALS: BP 143/94
[2023-02-22] MEDS: DOCUSATE SODIUM 250 MG CAPSULE PO SCH (21:12)
[2023-02-22] MEDS: VALPROIC ACID 250 MG/5 ML SOLUTION UDCUP PO SCH (21:13)
[2023-02-22] MEDS: OLANZapine 5 MG RAPDIS TABLET PO SCH (21:13)
[2023-02-23 08:40] VITALS: BP 130/86
[2023-02-23] MEDS: NALTREXONE HCL 50 MG TABLET PO SCH (09:59)
[2023-02-23] MEDS: MODAFINIL 100 MG TABLET PO SCH (09:59)
[2023-02-23] MEDS: MULTIVITAMINS WITH MINERALS, THERAPEUTIC TABLET PO SCH (09:59)
[2023-02-23] MEDS: OMEGA-3/DHA/EPA/FISH OIL 1,000 MG CAPSULE PO SCH (09:59)
[2023-02-23] MEDS: METOPROLOL TARTRATE 25 MG TABLET PO SCH ×2 (09:59→16:47)
[2023-02-23 16:43] VITALS: BP 110/70
[2023-02-23 20:22] VITALS: BP 129/66
[2023-02-23] MEDS: DOCUSATE SODIUM 250 MG CAPSULE PO SCH (21:21)
[2023-02-23] MEDS: VALPROIC ACID 250 MG/5 ML SOLUTION UDCUP PO SCH (21:22)
[2023-02-23] MEDS: OLANZapine 5 MG RAPDIS TABLET PO SCH (21:22)
[2023-02-24 08:35] VITALS: BP 115/74
[2023-02-24] MEDS: MODAFINIL 100 MG TABLET PO SCH (09:49)
[2023-02-24] MEDS: MULTIVITAMINS WITH MINERALS, THERAPEUTIC TABLET PO SCH (09:50)
[2023-02-24] MEDS: NALTREXONE HCL 50 MG TABLET PO SCH (09:50)
[2023-02-24] MEDS: OMEGA-3/DHA/EPA/FISH OIL 1,000 MG CAPSULE PO SCH (09:50)
[2023-02-24] MEDS: METOPROLOL TARTRATE 25 MG TABLET PO SCH ×2 (09:50→17:16)
[2023-02-24 16:11] VITALS: BP 131/80
[2023-02-24] MEDS: DOCUSATE SODIUM 250 MG CAPSULE PO SCH (21:22)
[2023-02-24] MEDS: OLANZapine 5 MG RAPDIS TABLET PO SCH (21:22)
[2023-02-24] MEDS: VALPROIC ACID 250 MG/5 ML SOLUTION UDCUP PO SCH (21:23)
[2023-02-24 22:39] VITALS: BP 117/74
[2023-02-25 07:42] LABS: COVID AG,FIA SOURCE NASAL SWAB
[2023-02-25 08:28] VITALS: BP 112/75
[2023-02-25] MEDS: MULTIVITAMINS WITH MINERALS, THERAPEUTIC TABLET PO SCH (09:47)
[2023-02-25] MEDS: MODAFINIL 100 MG TABLET PO SCH (09:48)
[2023-02-25] MEDS: NALTREXONE HCL 50 MG TABLET PO SCH (10:07)
[2023-02-25] MEDS: METOPROLOL TARTRATE 25 MG TABLET PO SCH ×2 (10:07→17:38)
[2023-02-25] MEDS: OMEGA-3/DHA/EPA/FISH OIL 1,000 MG CAPSULE PO SCH (10:07)
[2023-02-25 16:27] VITALS: BP 128/56
[2023-02-25 20:34] VITALS: BP 99/61
[2023-02-25] MEDS: VALPROIC ACID 250 MG/5 ML SOLUTION UDCUP PO SCH (20:47)
[2023-02-25] MEDS: DOCUSATE SODIUM 250 MG CAPSULE PO SCH (20:47)
[2023-02-25] MEDS: OLANZapine 5 MG RAPDIS TABLET PO SCH (20:48)
[2023-02-26] MEDS: OMEGA-3/DHA/EPA/FISH OIL 1,000 MG CAPSULE PO SCH (08:11)
[2023-02-26] MEDS: MODAFINIL 100 MG TABLET PO SCH (08:11)
[2023-02-26] MEDS: METOPROLOL TARTRATE 25 MG TABLET PO SCH ×2 (08:11→16:17)
[2023-02-26] MEDS: MULTIVITAMINS WITH MINERALS, THERAPEUTIC TABLET PO SCH (08:11)
[2023-02-26] MEDS: NALTREXONE HCL 50 MG TABLET PO SCH (08:11)
[2023-02-26 09:09] VITALS: BP 143/83
[2023-02-26 16:44] VITALS: BP 132/99
[2023-02-26 20:40] VITALS: BP 123/81
[2023-02-26] MEDS: OLANZapine 10 MG RAPDIS TABLET PO SCH (20:42)
[2023-02-26] MEDS: DOCUSATE SODIUM 250 MG CAPSULE PO SCH (20:42)
[2023-02-26] MEDS: VALPROIC ACID 250 MG/5 ML SOLUTION UDCUP PO SCH (20:42)
[2023-02-27 08:25] VITALS: BP 131/83
[2023-02-27] MEDS: METOPROLOL TARTRATE 25 MG TABLET PO SCH ×2 (09:17→16:25)
[2023-02-27] MEDS: NALTREXONE HCL 50 MG TABLET PO SCH (09:17)
[2023-02-27] MEDS: MULTIVITAMINS WITH MINERALS, THERAPEUTIC TABLET PO SCH (09:17)
[2023-02-27] MEDS: OMEGA-3/DHA/EPA/FISH OIL 1,000 MG CAPSULE PO SCH (09:17)
[2023-02-27] MEDS: MODAFINIL 100 MG TABLET PO SCH (09:18)
[2023-02-27 16:16] VITALS: BP 130/83
[2023-02-27] MEDS: DOCUSATE SODIUM 250 MG CAPSULE PO SCH (20:43)
[2023-02-27] MEDS: OLANZapine 10 MG RAPDIS TABLET PO SCH (20:43)
[2023-02-27] MEDS: VALPROIC ACID 250 MG/5 ML SOLUTION UDCUP PO SCH (20:43)
[2023-02-27 20:57] VITALS: BP 140/71
[2023-02-28] MEDS: OMEGA-3/DHA/EPA/FISH OIL 1,000 MG CAPSULE PO SCH (08:48)
[2023-02-28] MEDS: MODAFINIL 100 MG TABLET PO SCH (08:48)
[2023-02-28] MEDS: METOPROLOL TARTRATE 25 MG TABLET PO SCH ×2 (08:49→16:43)
[2023-02-28] MEDS: NALTREXONE HCL 50 MG TABLET PO SCH (08:49)
[2023-02-28] MEDS: MULTIVITAMINS WITH MINERALS, THERAPEUTIC TABLET PO SCH (08:49)
[2023-02-28 09:18] VITALS: BP 153/81
[2023-02-28] MEDS: EPOETIN ALFA 10,000 UNITS/ML VIAL SQ SCH (10:43)
[2023-02-28 16:51] VITALS: BP 130/92
[2023-02-28 20:44] VITALS: BP 97/64
[2023-02-28] MEDS: VALPROIC ACID 250 MG/5 ML SOLUTION UDCUP PO SCH (21:04)
[2023-02-28] MEDS: DOCUSATE SODIUM 250 MG CAPSULE PO SCH (21:06)
[2023-02-28] MEDS: OLANZapine 10 MG RAPDIS TABLET PO SCH (21:06)
[2023-03-01 08:00] VITALS: BP 147/78
[2023-03-01] MEDS: MODAFINIL 100 MG TABLET PO SCH (08:52)
[2023-03-01] MEDS: OMEGA-3/DHA/EPA/FISH OIL 1,000 MG CAPSULE PO SCH (08:52)
[2023-03-01] MEDS: MULTIVITAMINS WITH MINERALS, THERAPEUTIC TABLET PO SCH (08:53)
[2023-03-01] MEDS: NALTREXONE HCL 50 MG TABLET PO SCH (08:53)
[2023-03-01] MEDS: METOPROLOL TARTRATE 25 MG TABLET PO SCH ×2 (08:53→18:11)
[2023-03-01 16:00] VITALS: BP 141/89
[2023-03-01] MEDS: DOCUSATE SODIUM 250 MG CAPSULE PO SCH (20:46)
[2023-03-01] MEDS: VALPROIC ACID 250 MG/5 ML SOLUTION UDCUP PO SCH (20:46)
[2023-03-01] MEDS: OLANZapine 10 MG RAPDIS TABLET PO SCH (20:47)
[2023-03-01 21:01] VITALS: BP 134/72
[2023-03-02 09:07] VITALS: BP 125/97
[2023-03-02] MEDS: NALTREXONE HCL 50 MG TABLET PO SCH (09:51)
[2023-03-02] MEDS: MODAFINIL 100 MG TABLET PO SCH (09:51)
[2023-03-02] MEDS: OMEGA-3/DHA/EPA/FISH OIL 1,000 MG CAPSULE PO SCH (09:51)
[2023-03-02] MEDS: MULTIVITAMINS WITH MINERALS, THERAPEUTIC TABLET PO SCH (09:51)
[2023-03-02] MEDS: METOPROLOL TARTRATE 25 MG TABLET PO SCH ×2 (09:51→18:11)
[2023-03-02] MEDS: KETOROLAC TROMETHAMINE 0.4% 5 ML OPHTHALMIC SOLUTION OS SCH ×4 (09:53→20:45)
[2023-03-02 16:34] VITALS: BP 132/70
[2023-03-02] MEDS: DOCUSATE SODIUM 250 MG CAPSULE PO SCH (20:45)
[2023-03-02] MEDS: OLANZapine 5 MG TABLET PO SCH (20:46)
[2023-03-02] MEDS: VALPROIC ACID 250 MG/5 ML SOLUTION UDCUP PO SCH (20:46)
[2023-03-02 21:09] VITALS: BP 144/82
[2023-03-03] MEDS: MULTIVITAMINS WITH MINERALS, THERAPEUTIC TABLET PO SCH (08:43)
[2023-03-03] MEDS: OMEGA-3/DHA/EPA/FISH OIL 1,000 MG CAPSULE PO SCH (08:43)
[2023-03-03] MEDS: KETOROLAC TROMETHAMINE 0.4% 5 ML OPHTHALMIC SOLUTION OS SCH ×4 (08:44→20:30)
[2023-03-03] MEDS: NALTREXONE HCL 50 MG TABLET PO SCH (08:44)
[2023-03-03] MEDS: METOPROLOL TARTRATE 25 MG TABLET PO SCH ×2 (08:44→16:21)
[2023-03-03] MEDS: MODAFINIL 100 MG TABLET PO SCH (08:44)
[2023-03-03 16:36] VITALS: BP 128/99
[2023-03-03] MEDS: POLYMYXIN B/TRIMETHOPRIM 10 ML OPHTHALMIC SOLUTION OD SCH (17:48)
[2023-03-03] MEDS: DOCUSATE SODIUM 250 MG CAPSULE PO SCH (20:30)
[2023-03-03] MEDS: OLANZapine 5 MG TABLET PO SCH (20:31)
[2023-03-03] MEDS: VALPROIC ACID 250 MG/5 ML SOLUTION UDCUP PO SCH (20:31)
[2023-03-03 21:01] VITALS: BP 124/78
[2023-03-04] MEDS: POLYMYXIN B/TRIMETHOPRIM 10 ML OPHTHALMIC SOLUTION OD SCH ×4 (00:15→18:05)
[2023-03-04] MEDS: OMEGA-3/DHA/EPA/FISH OIL 1,000 MG CAPSULE PO SCH (09:00)
[2023-03-04] MEDS: METOPROLOL TARTRATE 25 MG TABLET PO SCH ×2 (09:00→16:38)
[2023-03-04] MEDS: MULTIVITAMINS WITH MINERALS, THERAPEUTIC TABLET PO SCH (09:00)
[2023-03-04] MEDS: NALTREXONE HCL 50 MG TABLET PO SCH (09:00)
[2023-03-04] MEDS: MODAFINIL 100 MG TABLET PO SCH (09:00)
[2023-03-04] MEDS: KETOROLAC TROMETHAMINE 0.4% 5 ML OPHTHALMIC SOLUTION OS SCH ×4 (09:00→20:51)
[2023-03-04] MEDS: ACETAMINOPHEN 325 MG TABLET PO PRN (14:00)
[2023-03-04 14:01] VITALS: BP 149/83
[2023-03-04] MEDS: PrednisoLONE ACETATE 1% 5 ML OPHTHALMIC SUSPENSION OS SCH ×2 (16:40→21:26)
[2023-03-04] MEDS: OFLOXACIN 0.3% 5 ML OPHTHALMIC SOLUTION OS SCH ×2 (16:40→21:02)
[2023-03-04] MEDS: DOCUSATE SODIUM 250 MG CAPSULE PO SCH (20:51)
[2023-03-04] MEDS: OLANZapine 5 MG TABLET PO SCH (20:52)
[2023-03-04] MEDS: VALPROIC ACID 250 MG/5 ML SOLUTION UDCUP PO SCH (20:52)
[2023-03-05] MEDS: POLYMYXIN B/TRIMETHOPRIM 10 ML OPHTHALMIC SOLUTION OD SCH ×4 (00:09→17:47)
[2023-03-05] MEDS: METOPROLOL TARTRATE 25 MG TABLET PO SCH ×2 (09:19→16:45)
[2023-03-05] MEDS: OMEGA-3/DHA/EPA/FISH OIL 1,000 MG CAPSULE PO SCH (09:19)
[2023-03-05] MEDS: NALTREXONE HCL 50 MG TABLET PO SCH (09:19)
[2023-03-05] MEDS: MODAFINIL 100 MG TABLET PO SCH (09:19)
[2023-03-05] MEDS: MULTIVITAMINS WITH MINERALS, THERAPEUTIC TABLET PO SCH (09:19)
[2023-03-05] MEDS: OFLOXACIN 0.3% 5 ML OPHTHALMIC SOLUTION OS SCH ×4 (09:20→21:00)
[2023-03-05] MEDS: PrednisoLONE ACETATE 1% 5 ML OPHTHALMIC SUSPENSION OS SCH ×4 (09:20→21:11)
[2023-03-05] MEDS: KETOROLAC TROMETHAMINE 0.4% 5 ML OPHTHALMIC SOLUTION OS SCH ×4 (09:20→20:49)
[2023-03-05 09:43] LABS: COVID AG,FIA SOURCE NASAL SWAB
[2023-03-05 10:09] VITALS: BP 124/76
[2023-03-05] MEDS: VALPROIC ACID 250 MG/5 ML SOLUTION UDCUP PO SCH (20:50)
[2023-03-05] MEDS: DOCUSATE SODIUM 250 MG CAPSULE PO SCH (20:50)
[2023-03-05] MEDS: OLANZapine 5 MG TABLET PO SCH (20:50)
[2023-03-06] MEDS: POLYMYXIN B/TRIMETHOPRIM 10 ML OPHTHALMIC SOLUTION OD SCH ×4 (00:02→18:32)
[2023-03-06] MEDS: NALTREXONE HCL 50 MG TABLET PO SCH (09:58)
[2023-03-06] MEDS: METOPROLOL TARTRATE 25 MG TABLET PO SCH ×2 (09:58→17:56)
[2023-03-06] MEDS: OMEGA-3/DHA/EPA/FISH OIL 1,000 MG CAPSULE PO SCH (09:58)
[2023-03-06] MEDS: MODAFINIL 100 MG TABLET PO SCH (09:58)
[2023-03-06] MEDS: MULTIVITAMINS WITH MINERALS, THERAPEUTIC TABLET PO SCH (09:58)
[2023-03-06] MEDS: PrednisoLONE ACETATE 1% 5 ML OPHTHALMIC SUSPENSION OS SCH ×4 (09:59→21:01)
[2023-03-06] MEDS: KETOROLAC TROMETHAMINE 0.4% 5 ML OPHTHALMIC SOLUTION OS SCH ×4 (09:59→20:26)
[2023-03-06] MEDS: OFLOXACIN 0.3% 5 ML OPHTHALMIC SOLUTION OS SCH ×4 (09:59→20:11)
[2023-03-06] MEDS: VALPROIC ACID 250 MG/5 ML SOLUTION UDCUP PO SCH (20:10)
[2023-03-06] MEDS: OLANZapine 5 MG TABLET PO SCH (20:10)
[2023-03-06] MEDS: DOCUSATE SODIUM 250 MG CAPSULE PO SCH (20:10)
[2023-03-07] MEDS: POLYMYXIN B/TRIMETHOPRIM 10 ML OPHTHALMIC SOLUTION OD SCH ×4 (00:47→18:12)
[2023-03-07 08:49] VITALS: BP 140/76
[2023-03-07] MEDS: OMEGA-3/DHA/EPA/FISH OIL 1,000 MG CAPSULE PO SCH (10:08)
[2023-03-07] MEDS: NALTREXONE HCL 50 MG TABLET PO SCH (10:09)
[2023-03-07] MEDS: METOPROLOL TARTRATE 25 MG TABLET PO SCH ×2 (10:09→17:57)
[2023-03-07] MEDS: MODAFINIL 100 MG TABLET PO SCH (10:09)
[2023-03-07] MEDS: MULTIVITAMINS WITH MINERALS, THERAPEUTIC TABLET PO SCH (10:09)
[2023-03-07] MEDS: OFLOXACIN 0.3% 5 ML OPHTHALMIC SOLUTION OS SCH ×4 (10:10→21:04)
[2023-03-07] MEDS: KETOROLAC TROMETHAMINE 0.4% 5 ML OPHTHALMIC SOLUTION OS SCH ×4 (10:10→21:10)
[2023-03-07] MEDS: PrednisoLONE ACETATE 1% 5 ML OPHTHALMIC SUSPENSION OS SCH ×4 (10:10→21:20)
[2023-03-07] MEDS: EPOETIN ALFA 10,000 UNITS/ML VIAL SQ SCH (10:23)
[2023-03-07 16:05] VITALS: BP 130/89
[2023-03-07 20:53] VITALS: BP 124/71
[2023-03-07] MEDS: OLANZapine 5 MG TABLET PO SCH (21:04)
[2023-03-07] MEDS: DOCUSATE SODIUM 250 MG CAPSULE PO SCH (21:05)
[2023-03-07] MEDS: VALPROIC ACID 250 MG/5 ML SOLUTION UDCUP PO SCH (21:06)
[2023-03-08] MEDS: POLYMYXIN B/TRIMETHOPRIM 10 ML OPHTHALMIC SOLUTION OD SCH ×3 (00:22→13:56)
[2023-03-08 08:47] VITALS: BP 126/78
[2023-03-08] MEDS: OMEGA-3/DHA/EPA/FISH OIL 1,000 MG CAPSULE PO SCH (09:37)
[2023-03-08] MEDS: MODAFINIL 100 MG TABLET PO SCH (09:37)
[2023-03-08] MEDS: MULTIVITAMINS WITH MINERALS, THERAPEUTIC TABLET PO SCH (09:37)
[2023-03-08] MEDS: NALTREXONE HCL 50 MG TABLET PO SCH (09:37)
[2023-03-08] MEDS: METOPROLOL TARTRATE 25 MG TABLET PO SCH ×2 (09:37→17:17)
[2023-03-08] MEDS: KETOROLAC TROMETHAMINE 0.4% 5 ML OPHTHALMIC SOLUTION OS SCH ×4 (09:38→21:18)
[2023-03-08] MEDS: PrednisoLONE ACETATE 1% 5 ML OPHTHALMIC SUSPENSION OS SCH ×4 (09:38→21:17)
[2023-03-08] MEDS: OFLOXACIN 0.3% 5 ML OPHTHALMIC SOLUTION OS SCH ×4 (09:38→21:17)
[2023-03-08 16:34] VITALS: BP 138/79
[2023-03-08] MEDS: DOCUSATE SODIUM 250 MG CAPSULE PO SCH (21:16)
[2023-03-08] MEDS: OLANZapine 5 MG TABLET PO SCH (21:16)
[2023-03-08] MEDS: VALPROIC ACID 250 MG/5 ML SOLUTION UDCUP PO SCH (21:16)
[2023-03-08 21:57] VITALS: BP 132/73
[2023-03-09 08:37] VITALS: BP 130/79
[2023-03-09] MEDS: NALTREXONE HCL 50 MG TABLET PO SCH (08:52)
[2023-03-09] MEDS: METOPROLOL TARTRATE 25 MG TABLET PO SCH ×2 (08:52→17:23)
[2023-03-09] MEDS: OMEGA-3/DHA/EPA/FISH OIL 1,000 MG CAPSULE PO SCH (08:52)
[2023-03-09] MEDS: KETOROLAC TROMETHAMINE 0.4% 5 ML OPHTHALMIC SOLUTION OS SCH ×4 (08:52→21:39)
[2023-03-09] MEDS: MODAFINIL 100 MG TABLET PO SCH (08:52)
[2023-03-09] MEDS: PrednisoLONE ACETATE 1% 5 ML OPHTHALMIC SUSPENSION OS SCH ×4 (08:52→20:37)
[2023-03-09] MEDS: MULTIVITAMINS WITH MINERALS, THERAPEUTIC TABLET PO SCH (08:52)
[2023-03-09] MEDS: OFLOXACIN 0.3% 5 ML OPHTHALMIC SOLUTION OS SCH ×4 (08:53→21:51)
[2023-03-09 16:09] VITALS: BP 128/72
[2023-03-09 20:23] VITALS: BP 109/88
[2023-03-09] MEDS: DOCUSATE SODIUM 250 MG CAPSULE PO SCH (20:36)
[2023-03-09] MEDS: OLANZapine 5 MG TABLET PO SCH (20:36)
[2023-03-09] MEDS: VALPROIC ACID 250 MG/5 ML SOLUTION UDCUP PO SCH (20:37)
[2023-03-10] MEDS: MODAFINIL 100 MG TABLET PO SCH (08:48)
[2023-03-10] MEDS: METOPROLOL TARTRATE 25 MG TABLET PO SCH ×2 (08:48→17:25)
[2023-03-10] MEDS: OMEGA-3/DHA/EPA/FISH OIL 1,000 MG CAPSULE PO SCH (08:48)
[2023-03-10] MEDS: MULTIVITAMINS WITH MINERALS, THERAPEUTIC TABLET PO SCH (08:48)
[2023-03-10] MEDS: NALTREXONE HCL 50 MG TABLET PO SCH (08:49)
[2023-03-10] MEDS: PrednisoLONE ACETATE 1% 5 ML OPHTHALMIC SUSPENSION OS SCH ×4 (08:49→21:22)
[2023-03-10] MEDS: KETOROLAC TROMETHAMINE 0.4% 5 ML OPHTHALMIC SOLUTION OS SCH ×4 (08:49→20:37)
[2023-03-10] MEDS: OFLOXACIN 0.3% 5 ML OPHTHALMIC SOLUTION OS SCH ×4 (08:50→20:58)
[2023-03-10 09:23] VITALS: BP 100/58
[2023-03-10 16:44] VITALS: BP 114/64
[2023-03-10] MEDS: DOCUSATE SODIUM 250 MG CAPSULE PO SCH (20:35)
[2023-03-10] MEDS: OLANZapine 5 MG TABLET PO SCH (20:35)
[2023-03-10] MEDS: VALPROIC ACID 250 MG/5 ML SOLUTION UDCUP PO SCH (20:36)
[2023-03-10 21:31] VITALS: BP 130/66
[2023-03-11] MEDS: MULTIVITAMINS WITH MINERALS, THERAPEUTIC TABLET PO SCH (08:37)
[2023-03-11] MEDS: OMEGA-3/DHA/EPA/FISH OIL 1,000 MG CAPSULE PO SCH (08:37)
[2023-03-11] MEDS: MODAFINIL 100 MG TABLET PO SCH (08:37)
[2023-03-11] MEDS: NALTREXONE HCL 50 MG TABLET PO SCH (08:37)
[2023-03-11] MEDS: METOPROLOL TARTRATE 25 MG TABLET PO SCH ×2 (08:38→16:10)
[2023-03-11] MEDS: PrednisoLONE ACETATE 1% 5 ML OPHTHALMIC SUSPENSION OS SCH ×2 (08:39→12:09)
[2023-03-11] MEDS: KETOROLAC TROMETHAMINE 0.4% 5 ML OPHTHALMIC SOLUTION OS SCH ×4 (08:40→20:53)
[2023-03-11] MEDS: OFLOXACIN 0.3% 5 ML OPHTHALMIC SOLUTION OS SCH ×2 (08:40→12:09)
[2023-03-11 08:47] VITALS: BP 118/72
[2023-03-11 17:06] VITALS: BP 140/78
[2023-03-11] MEDS: DOCUSATE SODIUM 250 MG CAPSULE PO SCH (20:53)
[2023-03-11] MEDS: OLANZapine 5 MG TABLET PO SCH (20:53)
[2023-03-11] MEDS: VALPROIC ACID 250 MG/5 ML SOLUTION UDCUP PO SCH (20:53)
[2023-03-11 21:38] VITALS: BP 119/60
[2023-03-12 06:45] LABS: COVID AG,FIA SOURCE NASAL SWAB
[2023-03-12 08:49] VITALS: BP 108/60
[2023-03-12] MEDS: MULTIVITAMINS WITH MINERALS, THERAPEUTIC TABLET PO SCH (09:21)
[2023-03-12] MEDS: OMEGA-3/DHA/EPA/FISH OIL 1,000 MG CAPSULE PO SCH (09:21)
[2023-03-12] MEDS: MODAFINIL 100 MG TABLET PO SCH (09:21)
[2023-03-12] MEDS: NALTREXONE HCL 50 MG TABLET PO SCH (09:21)
[2023-03-12] MEDS: METOPROLOL TARTRATE 25 MG TABLET PO SCH ×2 (09:21→16:34)
[2023-03-12 09:27] VITALS: BP 140/93
[2023-03-12] MEDS: ACETAMINOPHEN 325 MG TABLET PO PRN (09:27)
[2023-03-12 10:27] VITALS: BP 132/84
[2023-03-12 16:30] VITALS: BP 152/79
[2023-03-12] MEDS: PredniSONE 20 MG TABLET PO SCH (18:35)
[2023-03-12 20:11] VITALS: BP 128/77
[2023-03-12] MEDS: VALPROIC ACID 250 MG/5 ML SOLUTION UDCUP PO SCH (21:08)
[2023-03-12] MEDS: DOCUSATE SODIUM 250 MG CAPSULE PO SCH (21:09)
[2023-03-12] MEDS: OLANZapine 5 MG TABLET PO SCH (21:12)
[2023-03-13 08:49] VITALS: BP 114/80
[2023-03-13] MEDS: METOPROLOL TARTRATE 25 MG TABLET PO SCH ×2 (10:44→17:02)
[2023-03-13] MEDS: NALTREXONE HCL 50 MG TABLET PO SCH (10:45)
[2023-03-13] MEDS: MULTIVITAMINS WITH MINERALS, THERAPEUTIC TABLET PO SCH (10:45)
[2023-03-13] MEDS: OMEGA-3/DHA/EPA/FISH OIL 1,000 MG CAPSULE PO SCH (10:45)
[2023-03-13] MEDS: MODAFINIL 100 MG TABLET PO SCH (10:45)
[2023-03-13] MEDS: PredniSONE 20 MG TABLET PO SCH (10:47)
[2023-03-13 16:10] VITALS: BP 129/74
[2023-03-13] MEDS: VALPROIC ACID 250 MG/5 ML SOLUTION UDCUP PO SCH (20:21)
[2023-03-13] MEDS: DOCUSATE SODIUM 250 MG CAPSULE PO SCH (20:22)
[2023-03-13] MEDS: OLANZapine 5 MG TABLET PO SCH (20:22)
[2023-03-13 20:36] VITALS: BP 154/85
[2023-03-14 08:00] VITALS: BP 152/73
[2023-03-14 08:26] LABS: BASOPHILS % (AUTO) 0.5 % (0.0-2.0); EOSINOPHILS % (AUTO) 2.7 % (1.0-6.0); HEMATOCRIT 45.3 % (36-46); HEMOGLOBIN 14.3 g/dL (12.0-16.0); LYMPHOCYTES # (AUTO) 2.8 K/uL (1.0-4.8); LYMPHOCYTES % (AUTO) 42.4 % (22.0-44.0); MEAN CORPUSCULAR HEMOGLOBIN 27.4 pg (26.0-34.0); MEAN CORPUSCULAR HGB CONC 31.7 G/dL (31.0-37.0); MEAN CORPUSCULAR VOLUME 87 fL (80-100); MONOCYTES # (AUTO) 0.4 K/uL (0.1-1.0); MONOCYTES % (AUTO) 5.9 % (2.0-9.0); NEUTROPHILS # (AUTO) 3.2 K/uL (1.8-7.7); NEUTROPHILS % (AUTO) 48.5 % (40.0-70.0); PLATELET COUNT (AUTO) 419 K/uL (150-450); RED BLOOD CELL COUNT(AUTO) 5.22 MIL/uL (4.00-5.20); RED CELL DISTRIBUTION WIDTH 17.8 % (11.5-14.5)
[2023-03-14 08:27] LABS: HEMOGLOBIN A1C 4.8 % (3.8-5.6)
[2023-03-14] MEDS: MODAFINIL 100 MG TABLET PO SCH (08:34)
[2023-03-14] MEDS: NALTREXONE HCL 50 MG TABLET PO SCH (08:35)
[2023-03-14] MEDS: OMEGA-3/DHA/EPA/FISH OIL 1,000 MG CAPSULE PO SCH (08:35)
[2023-03-14] MEDS: PredniSONE 20 MG TABLET PO SCH (08:35)
[2023-03-14] MEDS: MULTIVITAMINS WITH MINERALS, THERAPEUTIC TABLET PO SCH (08:35)
[2023-03-14] MEDS: METOPROLOL TARTRATE 25 MG TABLET PO SCH ×2 (08:35→16:19)
[2023-03-14] MEDS: EPOETIN ALFA 10,000 UNITS/ML VIAL SQ SCH (08:36)
[2023-03-14 08:43] LABS: ALBUMIN 3.4 g/dL (3.4-5.0); BILIRUBIN,TOTAL 0.2 mg/dL (0.1-1.0); CALCIUM, TOTAL 9.5 mg/dL (8.8-10.5); CREATININE 1.36 mg/dL (0.60-1.30); POTASSIUM 4.4 mmol/L (3.5-5.1); TOTAL PROTEIN, SERUM 8.8 g/dL (6.4-8.2)
[2023-03-14 09:28] LABS: URIC ACID 11.1 mg/dL (2.6-7.2)
[2023-03-14 16:00] VITALS: BP 164/85
[2023-03-14 20:48] VITALS: BP 134/86
[2023-03-14] MEDS: DOCUSATE SODIUM 250 MG CAPSULE PO SCH (21:43)
[2023-03-14] MEDS: OLANZapine 5 MG TABLET PO SCH (21:44)
[2023-03-14] MEDS: VALPROIC ACID 250 MG/5 ML SOLUTION UDCUP PO SCH (21:44)
[2023-03-15 08:40] VITALS: BP 136/65
[2023-03-15] MEDS: METOPROLOL TARTRATE 25 MG TABLET PO SCH ×2 (09:37→16:34)
[2023-03-15] MEDS: NALTREXONE HCL 50 MG TABLET PO SCH (09:37)
[2023-03-15] MEDS: MODAFINIL 100 MG TABLET PO SCH (09:37)
[2023-03-15] MEDS: OMEGA-3/DHA/EPA/FISH OIL 1,000 MG CAPSULE PO SCH (09:37)
[2023-03-15] MEDS: PredniSONE 20 MG TABLET PO SCH (09:37)
[2023-03-15] MEDS: MULTIVITAMINS WITH MINERALS, THERAPEUTIC TABLET PO SCH (09:37)
[2023-03-15 16:00] VITALS: BP 150/80
[2023-03-15] MEDS: VALPROIC ACID 250 MG/5 ML SOLUTION UDCUP PO SCH (21:08)
[2023-03-15] MEDS: DOCUSATE SODIUM 250 MG CAPSULE PO SCH (21:09)
[2023-03-15] MEDS: OLANZapine 5 MG TABLET PO SCH (21:09)
[2023-03-15 22:24] VITALS: BP 135/79
[2023-03-16] MEDS: NALTREXONE HCL 50 MG TABLET PO SCH (08:33)
[2023-03-16] MEDS: MODAFINIL 100 MG TABLET PO SCH (08:34)
[2023-03-16] MEDS: OMEGA-3/DHA/EPA/FISH OIL 1,000 MG CAPSULE PO SCH (08:34)
[2023-03-16] MEDS: METOPROLOL TARTRATE 25 MG TABLET PO SCH ×2 (08:34→16:27)
[2023-03-16] MEDS: PredniSONE 20 MG TABLET PO SCH (08:34)
[2023-03-16] MEDS: MULTIVITAMINS WITH MINERALS, THERAPEUTIC TABLET PO SCH (08:34)
[2023-03-16 09:25] VITALS: BP 130/75
[2023-03-16 16:13] VITALS: BP 140/77
[2023-03-16 20:27] VITALS: BP 145/85
[2023-03-16] MEDS: DOCUSATE SODIUM 250 MG CAPSULE PO SCH (21:07)
[2023-03-16] MEDS: OLANZapine 5 MG TABLET PO SCH (21:07)
[2023-03-16] MEDS: VALPROIC ACID 250 MG/5 ML SOLUTION UDCUP PO SCH (21:08)
[2023-03-17] MEDS: MULTIVITAMINS WITH MINERALS, THERAPEUTIC TABLET PO SCH (08:33)
[2023-03-17] MEDS: OMEGA-3/DHA/EPA/FISH OIL 1,000 MG CAPSULE PO SCH (08:33)
[2023-03-17] MEDS: METOPROLOL TARTRATE 25 MG TABLET PO SCH ×2 (08:33→17:31)
[2023-03-17] MEDS: MODAFINIL 100 MG TABLET PO SCH (08:33)
[2023-03-17] MEDS: NALTREXONE HCL 50 MG TABLET PO SCH (08:34)
[2023-03-17] MEDS: PredniSONE 20 MG TABLET PO SCH (08:35)
[2023-03-17 08:46] VITALS: BP 159/95
[2023-03-17 16:03] VITALS: BP 143/92
[2023-03-17 20:51] VITALS: BP 134/81
[2023-03-17] MEDS: DOCUSATE SODIUM 250 MG CAPSULE PO SCH (20:59)
[2023-03-17] MEDS: VALPROIC ACID 250 MG/5 ML SOLUTION UDCUP PO SCH (21:00)
[2023-03-17] MEDS: OLANZapine 5 MG TABLET PO SCH (21:00)
[2023-03-18] MEDS: NALTREXONE HCL 50 MG TABLET PO SCH (08:27)
[2023-03-18] MEDS: OMEGA-3/DHA/EPA/FISH OIL 1,000 MG CAPSULE PO SCH (08:27)
[2023-03-18] MEDS: MULTIVITAMINS WITH MINERALS, THERAPEUTIC TABLET PO SCH (08:27)
[2023-03-18] MEDS: MODAFINIL 100 MG TABLET PO SCH (08:27)
[2023-03-18] MEDS: METOPROLOL TARTRATE 25 MG TABLET PO SCH ×2 (08:28→16:11)
[2023-03-18] MEDS: COLCHICINE 0.6 MG TABLET PO SCH (08:28)
[2023-03-18] MEDS: PredniSONE 20 MG TABLET PO SCH (08:28)
[2023-03-18 08:43] VITALS: BP 159/79
[2023-03-18 16:30] VITALS: BP 144/92
[2023-03-18] MEDS: DOCUSATE SODIUM 250 MG CAPSULE PO SCH (20:55)
[2023-03-18] MEDS: VALPROIC ACID 250 MG/5 ML SOLUTION UDCUP PO SCH (20:55)
[2023-03-18] MEDS: OLANZapine 5 MG TABLET PO SCH (20:55)
[2023-03-18 21:11] VITALS: BP 145/82
[2023-03-19 07:22] LABS: COVID AG,FIA SOURCE NASAL SWAB
[2023-03-19] MEDS: COLCHICINE 0.6 MG TABLET PO SCH (08:31)
[2023-03-19] MEDS: OMEGA-3/DHA/EPA/FISH OIL 1,000 MG CAPSULE PO SCH (08:33)
[2023-03-19] MEDS: METOPROLOL TARTRATE 25 MG TABLET PO SCH ×2 (08:33→16:25)
[2023-03-19] MEDS: MODAFINIL 100 MG TABLET PO SCH (08:33)
[2023-03-19] MEDS: MULTIVITAMINS WITH MINERALS, THERAPEUTIC TABLET PO SCH (08:33)
[2023-03-19] MEDS: NALTREXONE HCL 50 MG TABLET PO SCH (08:34)
[2023-03-19 09:12] VITALS: BP 163/90
[2023-03-19 16:00] VITALS: BP 159/88
[2023-03-19] MEDS: VALPROIC ACID 250 MG/5 ML SOLUTION UDCUP PO SCH (21:19)
[2023-03-19] MEDS: DOCUSATE SODIUM 250 MG CAPSULE PO SCH (21:19)
[2023-03-19] MEDS: OLANZapine 5 MG TABLET PO SCH (21:19)
[2023-03-20] MEDS: COLCHICINE 0.6 MG TABLET PO SCH (08:30)
[2023-03-20] MEDS: OMEGA-3/DHA/EPA/FISH OIL 1,000 MG CAPSULE PO SCH (08:33)
[2023-03-20] MEDS: MULTIVITAMINS WITH MINERALS, THERAPEUTIC TABLET PO SCH (08:34)
[2023-03-20] MEDS: NALTREXONE HCL 50 MG TABLET PO SCH (08:34)
[2023-03-20] MEDS: AmLODIPine BESYLATE 5 MG TABLET PO SCH (08:34)
[2023-03-20] MEDS: MODAFINIL 100 MG TABLET PO SCH (08:34)
[2023-03-20] MEDS: METOPROLOL TARTRATE 25 MG TABLET PO SCH ×2 (08:34→16:17)
[2023-03-20 09:14] VITALS: BP 126/91
[2023-03-20 16:42] VITALS: BP 147/92
[2023-03-20] MEDS: VALPROIC ACID 250 MG/5 ML SOLUTION UDCUP PO SCH (20:48)
[2023-03-20] MEDS: DOCUSATE SODIUM 250 MG CAPSULE PO SCH (20:48)
[2023-03-20] MEDS: OLANZapine 5 MG TABLET PO SCH (20:48)
[2023-03-20 22:31] VITALS: BP 140/85
[2023-03-21 08:00] VITALS: BP 127/84
[2023-03-21] MEDS: COLCHICINE 0.6 MG TABLET PO SCH (08:15)
[2023-03-21] MEDS: NALTREXONE HCL 50 MG TABLET PO SCH (08:18)
[2023-03-21] MEDS: AmLODIPine BESYLATE 5 MG TABLET PO SCH (08:18)
[2023-03-21] MEDS: MULTIVITAMINS WITH MINERALS, THERAPEUTIC TABLET PO SCH (08:18)
[2023-03-21] MEDS: METOPROLOL TARTRATE 25 MG TABLET PO SCH ×2 (08:18→16:24)
[2023-03-21] MEDS: MODAFINIL 100 MG TABLET PO SCH (08:18)
[2023-03-21] MEDS: OMEGA-3/DHA/EPA/FISH OIL 1,000 MG CAPSULE PO SCH (08:18)
[2023-03-21 16:00] VITALS: BP 157/90
[2023-03-21] MEDS: DOCUSATE SODIUM 250 MG CAPSULE PO SCH (21:14)
[2023-03-21] MEDS: VALPROIC ACID 250 MG/5 ML SOLUTION UDCUP PO SCH (21:15)
[2023-03-21] MEDS: OLANZapine 5 MG TABLET PO SCH (21:15)
[2023-03-21 23:33] VITALS: BP 132/82
[2023-03-22 08:00] VITALS: BP 134/93
[2023-03-22] MEDS: OMEGA-3/DHA/EPA/FISH OIL 1,000 MG CAPSULE PO SCH (08:55)
[2023-03-22] MEDS: MULTIVITAMINS WITH MINERALS, THERAPEUTIC TABLET PO SCH (08:56)
[2023-03-22] MEDS: NALTREXONE HCL 50 MG TABLET PO SCH (08:57)
[2023-03-22] MEDS: AmLODIPine BESYLATE 5 MG TABLET PO SCH (08:59)
[2023-03-22] MEDS: METOPROLOL TARTRATE 25 MG TABLET PO SCH ×2 (09:00→16:53)
[2023-03-22] MEDS: COLCHICINE 0.6 MG TABLET PO SCH (09:02)
[2023-03-22] MEDS: MODAFINIL 100 MG TABLET PO SCH (09:08)
[2023-03-22 16:00] VITALS: BP 150/79
[2023-03-22 17:09] VITALS: BP 148/79
[2023-03-22] MEDS: VALPROIC ACID 250 MG/5 ML SOLUTION UDCUP PO SCH (20:11)
[2023-03-22] MEDS: OLANZapine 5 MG TABLET PO SCH (20:12)
[2023-03-22] MEDS: DOCUSATE SODIUM 250 MG CAPSULE PO SCH (20:12)
[2023-03-22 22:18] VITALS: BP 122/67
[2023-03-23] MEDS: AmLODIPine BESYLATE 5 MG TABLET PO SCH (08:16)
[2023-03-23] MEDS: NALTREXONE HCL 50 MG TABLET PO SCH (08:16)
[2023-03-23] MEDS: OMEGA-3/DHA/EPA/FISH OIL 1,000 MG CAPSULE PO SCH (08:16)
[2023-03-23] MEDS: METOPROLOL TARTRATE 25 MG TABLET PO SCH ×2 (08:16→16:30)
[2023-03-23] MEDS: MULTIVITAMINS WITH MINERALS, THERAPEUTIC TABLET PO SCH (08:16)
[2023-03-23] MEDS: MODAFINIL 100 MG TABLET PO SCH (08:17)
[2023-03-23] MEDS: COLCHICINE 0.6 MG TABLET PO SCH (08:19)
[2023-03-23 09:38] VITALS: BP 120/80
[2023-03-23 16:43] VITALS: BP 129/89
[2023-03-23] MEDS: OLANZapine 5 MG TABLET PO SCH (20:23)
[2023-03-23] MEDS: DOCUSATE SODIUM 250 MG CAPSULE PO SCH (20:24)
[2023-03-23] MEDS: VALPROIC ACID 250 MG/5 ML SOLUTION UDCUP PO SCH (20:24)
[2023-03-23 20:53] VITALS: BP 101/69
[2023-03-24 08:32] VITALS: BP 128/91
[2023-03-24] MEDS: OMEGA-3/DHA/EPA/FISH OIL 1,000 MG CAPSULE PO SCH (10:32)
[2023-03-24] MEDS: MULTIVITAMINS WITH MINERALS, THERAPEUTIC TABLET PO SCH (10:32)
[2023-03-24] MEDS: COLCHICINE 0.6 MG TABLET PO SCH (10:32)
[2023-03-24] MEDS: NALTREXONE HCL 50 MG TABLET PO SCH (10:32)
[2023-03-24] MEDS: AmLODIPine BESYLATE 5 MG TABLET PO SCH (10:32)
[2023-03-24] MEDS: METOPROLOL TARTRATE 25 MG TABLET PO SCH ×2 (10:32→17:19)
[2023-03-24] MEDS: MODAFINIL 100 MG TABLET PO SCH (10:32)
[2023-03-24 16:00] VITALS: BP 148/79
[2023-03-24 20:30] VITALS: BP 131/64
[2023-03-24] MEDS: VALPROIC ACID 250 MG/5 ML SOLUTION UDCUP PO SCH (21:40)
[2023-03-24] MEDS: OLANZapine 5 MG TABLET PO SCH (21:40)
[2023-03-24] MEDS: DOCUSATE SODIUM 250 MG CAPSULE PO SCH (21:40)
[2023-03-25] MEDS: AmLODIPine BESYLATE 5 MG TABLET PO SCH (08:16)
[2023-03-25] MEDS: MODAFINIL 100 MG TABLET PO SCH (08:16)
[2023-03-25] MEDS: METOPROLOL TARTRATE 25 MG TABLET PO SCH ×2 (08:16→16:21)
[2023-03-25] MEDS: MULTIVITAMINS WITH MINERALS, THERAPEUTIC TABLET PO SCH (08:16)
[2023-03-25] MEDS: OMEGA-3/DHA/EPA/FISH OIL 1,000 MG CAPSULE PO SCH (08:16)
[2023-03-25] MEDS: COLCHICINE 0.6 MG TABLET PO SCH (08:16)
[2023-03-25] MEDS: NALTREXONE HCL 50 MG TABLET PO SCH (08:17)
[2023-03-25 10:18] VITALS: BP 143/78
[2023-03-25 16:31] VITALS: BP 124/84
[2023-03-25] MEDS: VALPROIC ACID 250 MG/5 ML SOLUTION UDCUP PO SCH (21:43)
[2023-03-25] MEDS: OLANZapine 5 MG TABLET PO SCH (21:43)
[2023-03-25] MEDS: DOCUSATE SODIUM 250 MG CAPSULE PO SCH (21:43)
[2023-03-26 08:24] LABS: COVID AG,FIA SOURCE NASAL SWAB
[2023-03-26] MEDS: MODAFINIL 100 MG TABLET PO SCH (08:45)
[2023-03-26] MEDS: MULTIVITAMINS WITH MINERALS, THERAPEUTIC TABLET PO SCH (08:46)
[2023-03-26] MEDS: COLCHICINE 0.6 MG TABLET PO SCH (08:46)
[2023-03-26] MEDS: NALTREXONE HCL 50 MG TABLET PO SCH (08:46)
[2023-03-26] MEDS: METOPROLOL TARTRATE 25 MG TABLET PO SCH ×2 (08:46→17:41)
[2023-03-26] MEDS: OMEGA-3/DHA/EPA/FISH OIL 1,000 MG CAPSULE PO SCH (08:46)
[2023-03-26] MEDS: AmLODIPine BESYLATE 5 MG TABLET PO SCH (08:46)
[2023-03-26 09:33] VITALS: BP 126/80
[2023-03-26 16:57] VITALS: BP 113/65
[2023-03-26] MEDS: DOCUSATE SODIUM 250 MG CAPSULE PO SCH (21:38)
[2023-03-26] MEDS: OLANZapine 5 MG TABLET PO SCH (21:39)
[2023-03-26] MEDS: VALPROIC ACID 250 MG/5 ML SOLUTION UDCUP PO SCH (21:39)
[2023-03-27] MEDS: MODAFINIL 100 MG TABLET PO SCH (08:25)
[2023-03-27] MEDS: METOPROLOL TARTRATE 25 MG TABLET PO SCH ×2 (08:26→16:51)
[2023-03-27] MEDS: AmLODIPine BESYLATE 5 MG TABLET PO SCH (08:26)
[2023-03-27] MEDS: MULTIVITAMINS WITH MINERALS, THERAPEUTIC TABLET PO SCH (08:26)
[2023-03-27] MEDS: NALTREXONE HCL 50 MG TABLET PO SCH (08:26)
[2023-03-27] MEDS: OMEGA-3/DHA/EPA/FISH OIL 1,000 MG CAPSULE PO SCH (08:26)
[2023-03-27] MEDS: COLCHICINE 0.6 MG TABLET PO SCH (08:26)
[2023-03-27 16:05] VITALS: BP 134/97
[2023-03-27] MEDS: VALPROIC ACID 250 MG/5 ML SOLUTION UDCUP PO SCH (20:20)
[2023-03-27] MEDS: OLANZapine 5 MG TABLET PO SCH (20:20)
[2023-03-27] MEDS: DOCUSATE SODIUM 250 MG CAPSULE PO SCH (20:20)
[2023-03-27 21:07] VITALS: BP 152/89
[2023-03-27 21:08] VITALS: BP 152/89
[2023-03-28 08:04] VITALS: BP 154/67
[2023-03-28] MEDS: NALTREXONE HCL 50 MG TABLET PO SCH (08:15)
[2023-03-28] MEDS: AmLODIPine BESYLATE 5 MG TABLET PO SCH (08:15)
[2023-03-28] MEDS: MULTIVITAMINS WITH MINERALS, THERAPEUTIC TABLET PO SCH (08:15)
[2023-03-28] MEDS: COLCHICINE 0.6 MG TABLET PO SCH (08:15)
[2023-03-28] MEDS: OMEGA-3/DHA/EPA/FISH OIL 1,000 MG CAPSULE PO SCH (08:15)
[2023-03-28] MEDS: MODAFINIL 100 MG TABLET PO SCH (08:15)
[2023-03-28] MEDS: METOPROLOL TARTRATE 25 MG TABLET PO SCH ×2 (08:15→16:51)
[2023-03-28 16:01] VITALS: BP 130/67
[2023-03-28 20:30] VITALS: BP 129/70
[2023-03-28] MEDS: VALPROIC ACID 250 MG/5 ML SOLUTION UDCUP PO SCH (20:59)
[2023-03-28] MEDS: OLANZapine 5 MG TABLET PO SCH (21:00)
[2023-03-28] MEDS: DOCUSATE SODIUM 250 MG CAPSULE PO SCH (21:00)
[2023-03-29 09:59] VITALS: BP 141/78
[2023-03-29] MEDS: MODAFINIL 100 MG TABLET PO SCH (10:16)
[2023-03-29] MEDS: OMEGA-3/DHA/EPA/FISH OIL 1,000 MG CAPSULE PO SCH (10:16)
[2023-03-29] MEDS: MULTIVITAMINS WITH MINERALS, THERAPEUTIC TABLET PO SCH (10:16)
[2023-03-29] MEDS: COLCHICINE 0.6 MG TABLET PO SCH (10:17)
[2023-03-29] MEDS: NALTREXONE HCL 50 MG TABLET PO SCH (10:17)
[2023-03-29] MEDS: METOPROLOL TARTRATE 25 MG TABLET PO SCH ×2 (10:17→18:17)
[2023-03-29] MEDS: AmLODIPine BESYLATE 5 MG TABLET PO SCH (10:17)
[2023-03-29 16:00] VITALS: BP 136/71
[2023-03-29] MEDS: OLANZapine 5 MG TABLET PO SCH (21:00)
[2023-03-29] MEDS: DOCUSATE SODIUM 250 MG CAPSULE PO SCH (21:00)
[2023-03-29] MEDS: VALPROIC ACID 250 MG/5 ML SOLUTION UDCUP PO SCH (21:00)
[2023-03-29 22:29] VITALS: BP 160/71
[2023-03-30] MEDS: COLCHICINE 0.6 MG TABLET PO SCH (07:44)
[2023-03-30] MEDS: OMEGA-3/DHA/EPA/FISH OIL 1,000 MG CAPSULE PO SCH (07:45)
[2023-03-30] MEDS: MODAFINIL 100 MG TABLET PO SCH (07:45)
[2023-03-30] MEDS: AmLODIPine BESYLATE 5 MG TABLET PO SCH (07:46)
[2023-03-30] MEDS: MULTIVITAMINS WITH MINERALS, THERAPEUTIC TABLET PO SCH (07:46)
[2023-03-30] MEDS: GABAPENTIN 300 MG CAPSULE PO PRN (07:46)
[2023-03-30] MEDS: OLANZapine 5 MG RAPDIS TABLET PO PRN (07:46)
[2023-03-30] MEDS: METOPROLOL TARTRATE 25 MG TABLET PO SCH ×2 (07:47→17:00)
[2023-03-30] MEDS: NALTREXONE HCL 50 MG TABLET PO SCH (07:48)
[2023-03-30 08:00] VITALS: BP 133/92
[2023-03-30 18:01] VITALS: BP 144/84
[2023-03-30] MEDS: OLANZapine 5 MG TABLET PO SCH (20:35)
[2023-03-30] MEDS: DOCUSATE SODIUM 250 MG CAPSULE PO SCH (20:35)
[2023-03-30] MEDS: VALPROIC ACID 250 MG/5 ML SOLUTION UDCUP PO SCH (20:35)
[2023-03-30 21:39] VITALS: BP 139/85
[2023-03-31 08:00] VITALS: BP 118/84
[2023-03-31] MEDS: MULTIVITAMINS WITH MINERALS, THERAPEUTIC TABLET PO SCH (08:25)
[2023-03-31] MEDS: MODAFINIL 100 MG TABLET PO SCH (08:26)
[2023-03-31] MEDS: OMEGA-3/DHA/EPA/FISH OIL 1,000 MG CAPSULE PO SCH (08:26)
[2023-03-31] MEDS: AmLODIPine BESYLATE 5 MG TABLET PO SCH (08:26)
[2023-03-31] MEDS: COLCHICINE 0.6 MG TABLET PO SCH (08:26)
[2023-03-31] MEDS: NALTREXONE HCL 50 MG TABLET PO SCH (08:26)
[2023-03-31] MEDS: METOPROLOL TARTRATE 25 MG TABLET PO SCH ×2 (08:26→17:19)
[2023-03-31 16:04] VITALS: BP 143/83
[2023-03-31] MEDS: VALPROIC ACID 250 MG/5 ML SOLUTION UDCUP PO SCH (20:37)
[2023-03-31] MEDS: DOCUSATE SODIUM 250 MG CAPSULE PO SCH (20:38)
[2023-03-31] MEDS: OLANZapine 5 MG TABLET PO SCH (20:38)
[2023-03-31 20:54] VITALS: BP 136/83
[2023-04-01] MEDS: METOPROLOL TARTRATE 25 MG TABLET PO SCH ×2 (08:34→16:42)
[2023-04-01] MEDS: MODAFINIL 100 MG TABLET PO SCH (08:34)
[2023-04-01] MEDS: COLCHICINE 0.6 MG TABLET PO SCH (08:34)
[2023-04-01] MEDS: NALTREXONE HCL 50 MG TABLET PO SCH (08:35)
[2023-04-01] MEDS: MULTIVITAMINS WITH MINERALS, THERAPEUTIC TABLET PO SCH (08:35)
[2023-04-01] MEDS: AmLODIPine BESYLATE 5 MG TABLET PO SCH (08:35)
[2023-04-01] MEDS: OMEGA-3/DHA/EPA/FISH OIL 1,000 MG CAPSULE PO SCH (08:35)
[2023-04-01 09:00] VITALS: BP 149/79
[2023-04-01 16:20] VITALS: BP 142/81
[2023-04-01] MEDS: OLANZapine 5 MG TABLET PO SCH (21:15)
[2023-04-01] MEDS: DOCUSATE SODIUM 250 MG CAPSULE PO SCH (21:15)
[2023-04-01] MEDS: VALPROIC ACID 250 MG/5 ML SOLUTION UDCUP PO SCH (21:15)
[2023-04-01 21:43] VITALS: BP 131/68
[2023-04-02 07:57] LABS: COVID AG,FIA SOURCE NASAL SWAB
[2023-04-02] MEDS: OMEGA-3/DHA/EPA/FISH OIL 1,000 MG CAPSULE PO SCH (08:56)
[2023-04-02] MEDS: MULTIVITAMINS WITH MINERALS, THERAPEUTIC TABLET PO SCH (08:56)
[2023-04-02] MEDS: COLCHICINE 0.6 MG TABLET PO SCH (08:56)
[2023-04-02] MEDS: MODAFINIL 100 MG TABLET PO SCH (08:56)
[2023-04-02] MEDS: METOPROLOL TARTRATE 25 MG TABLET PO SCH ×2 (08:56→16:27)
[2023-04-02] MEDS: NALTREXONE HCL 50 MG TABLET PO SCH (08:56)
[2023-04-02] MEDS: AmLODIPine BESYLATE 5 MG TABLET PO SCH (08:56)
[2023-04-02 09:49] VITALS: BP 122/76
[2023-04-02 12:29] VITALS: BP 130/72
[2023-04-02 16:57] VITALS: BP 150/96
[2023-04-02] MEDS: OLANZapine 5 MG TABLET PO SCH (20:30)
[2023-04-02] MEDS: VALPROIC ACID 250 MG/5 ML SOLUTION UDCUP PO SCH (20:30)
[2023-04-02] MEDS: DOCUSATE SODIUM 250 MG CAPSULE PO SCH (20:30)
[2023-04-02 22:52] VITALS: BP 130/72
[2023-04-03] MEDS: NALTREXONE HCL 50 MG TABLET PO SCH (08:37)
[2023-04-03] MEDS: OMEGA-3/DHA/EPA/FISH OIL 1,000 MG CAPSULE PO SCH (08:37)
[2023-04-03] MEDS: METOPROLOL TARTRATE 25 MG TABLET PO SCH ×2 (08:37→16:19)
[2023-04-03] MEDS: COLCHICINE 0.6 MG TABLET PO SCH (08:37)
[2023-04-03] MEDS: MULTIVITAMINS WITH MINERALS, THERAPEUTIC TABLET PO SCH (08:37)
[2023-04-03] MEDS: MODAFINIL 100 MG TABLET PO SCH (08:38)
[2023-04-03] MEDS: AmLODIPine BESYLATE 5 MG TABLET PO SCH (08:38)
[2023-04-03 09:44] VITALS: BP 111/71
[2023-04-03 16:18] VITALS: BP 130/83
[2023-04-03 21:00] VITALS: BP 138/63
[2023-04-03] MEDS: VALPROIC ACID 250 MG/5 ML SOLUTION UDCUP PO SCH (21:02)
[2023-04-03] MEDS: DOCUSATE SODIUM 250 MG CAPSULE PO SCH (21:02)
[2023-04-03] MEDS: OLANZapine 5 MG TABLET PO SCH (21:02)
[2023-04-04] MEDS: COLCHICINE 0.6 MG TABLET PO SCH (11:04)
[2023-04-04] MEDS: METOPROLOL TARTRATE 25 MG TABLET PO SCH ×2 (11:17→18:29)
[2023-04-04] MEDS: MULTIVITAMINS WITH MINERALS, THERAPEUTIC TABLET PO SCH (11:18)
[2023-04-04] MEDS: AmLODIPine BESYLATE 5 MG TABLET PO SCH (11:18)
[2023-04-04] MEDS: MODAFINIL 100 MG TABLET PO SCH (11:18)
[2023-04-04] MEDS: OMEGA-3/DHA/EPA/FISH OIL 1,000 MG CAPSULE PO SCH (11:18)
[2023-04-04] MEDS: NALTREXONE HCL 50 MG TABLET PO SCH (11:19)
[2023-04-04 11:53] VITALS: BP 159/96
[2023-04-04 12:01] VITALS: BP 147/90
[2023-04-04 18:25] VITALS: BP 155/93
[2023-04-04] MEDS: DOCUSATE SODIUM 250 MG CAPSULE PO SCH (21:03)
[2023-04-04] MEDS: VALPROIC ACID 250 MG/5 ML SOLUTION UDCUP PO SCH (21:03)
[2023-04-04] MEDS: OLANZapine 5 MG TABLET PO SCH (21:03)
[2023-04-05] MEDS: METOPROLOL TARTRATE 25 MG TABLET PO SCH ×2 (09:03→17:03)
[2023-04-05] MEDS: NALTREXONE HCL 50 MG TABLET PO SCH (09:03)
[2023-04-05] MEDS: AmLODIPine BESYLATE 5 MG TABLET PO SCH (09:03)
[2023-04-05] MEDS: MULTIVITAMINS WITH MINERALS, THERAPEUTIC TABLET PO SCH (09:03)
[2023-04-05] MEDS: MODAFINIL 100 MG TABLET PO SCH (09:03)
[2023-04-05] MEDS: COLCHICINE 0.6 MG TABLET PO SCH (09:04)
[2023-04-05] MEDS: OMEGA-3/DHA/EPA/FISH OIL 1,000 MG CAPSULE PO SCH (09:04)
[2023-04-05 10:32] VITALS: BP 146/97
[2023-04-05 16:12] VITALS: BP 146/78
[2023-04-05 20:50] VITALS: BP 136/80
[2023-04-05] MEDS: VALPROIC ACID 250 MG/5 ML SOLUTION UDCUP PO SCH (20:59)
[2023-04-05] MEDS: DOCUSATE SODIUM 250 MG CAPSULE PO SCH (21:00)
[2023-04-05] MEDS: OLANZapine 5 MG TABLET PO SCH (21:00)
[2023-04-06] MEDS: OMEGA-3/DHA/EPA/FISH OIL 1,000 MG CAPSULE PO SCH (08:50)
[2023-04-06] MEDS: NALTREXONE HCL 50 MG TABLET PO SCH (08:50)
[2023-04-06] MEDS: MODAFINIL 100 MG TABLET PO SCH (08:50)
[2023-04-06] MEDS: METOPROLOL TARTRATE 25 MG TABLET PO SCH ×2 (08:51→17:19)
[2023-04-06] MEDS: COLCHICINE 0.6 MG TABLET PO SCH (08:51)
[2023-04-06] MEDS: AmLODIPine BESYLATE 5 MG TABLET PO SCH (08:51)
[2023-04-06] MEDS: MULTIVITAMINS WITH MINERALS, THERAPEUTIC TABLET PO SCH (08:51)
[2023-04-06 09:49] VITALS: BP 131/83
[2023-04-06 16:44] VITALS: BP 127/85
[2023-04-06] MEDS: VALPROIC ACID 250 MG/5 ML SOLUTION UDCUP PO SCH (20:51)
[2023-04-06] MEDS: DOCUSATE SODIUM 250 MG CAPSULE PO SCH (20:52)
[2023-04-06] MEDS ORDERED: OLANZapine 7.5 MG TABLET PO SCH (21:00)
[2023-04-06 22:21] VITALS: BP 111/72
[2023-04-06] MEDS: ACETAMINOPHEN 325 MG TABLET PO PRN (23:44)
[2023-04-07] MEDS: MODAFINIL 100 MG TABLET PO SCH (09:04)
[2023-04-07] MEDS: NALTREXONE HCL 50 MG TABLET PO SCH (09:04)
[2023-04-07] MEDS: COLCHICINE 0.6 MG TABLET PO SCH (09:04)
[2023-04-07] MEDS: MULTIVITAMINS WITH MINERALS, THERAPEUTIC TABLET PO SCH (09:04)
[2023-04-07] MEDS: OMEGA-3/DHA/EPA/FISH OIL 1,000 MG CAPSULE PO SCH (09:04)
[2023-04-07] MEDS: METOPROLOL TARTRATE 25 MG TABLET PO SCH ×2 (09:06→16:27)
[2023-04-07] MEDS: AmLODIPine BESYLATE 5 MG TABLET PO SCH (09:06)
[2023-04-07 09:48] VITALS: BP 118/61
[2023-04-07] MEDS: OLANZapine 5 MG RAPDIS TABLET PO PRN (12:35)
[2023-04-07 17:45] VITALS: BP 139/94
[2023-04-07] MEDS: DOCUSATE SODIUM 250 MG CAPSULE PO SCH (21:08)
[2023-04-07] MEDS: OLANZapine 5 MG TABLET PO SCH (21:09)
[2023-04-07] MEDS: VALPROIC ACID 250 MG/5 ML SOLUTION UDCUP PO SCH (21:09)
[2023-04-07 21:12] VITALS: BP 136/74
[2023-04-08] MEDS: AmLODIPine BESYLATE 5 MG TABLET PO SCH (08:46)
[2023-04-08] MEDS: COLCHICINE 0.6 MG TABLET PO SCH (08:46)
[2023-04-08] MEDS: OMEGA-3/DHA/EPA/FISH OIL 1,000 MG CAPSULE PO SCH (08:46)
[2023-04-08] MEDS: MODAFINIL 100 MG TABLET PO SCH (08:46)
[2023-04-08] MEDS: NALTREXONE HCL 50 MG TABLET PO SCH (08:47)
[2023-04-08] MEDS: MULTIVITAMINS WITH MINERALS, THERAPEUTIC TABLET PO SCH (08:47)
[2023-04-08] MEDS: METOPROLOL TARTRATE 25 MG TABLET PO SCH ×2 (08:47→16:45)
[2023-04-08 10:53] VITALS: BP 122/68
[2023-04-08 16:43] VITALS: BP 139/93
[2023-04-08] MEDS ORDERED: TUBERCULIN, PURIFIED PROTEIN DERIVATIVE 5 TU/0.1 ML SYRINGE ID ONE (18:00)
[2023-04-08] MEDS: DOCUSATE SODIUM 250 MG CAPSULE PO SCH (20:50)
[2023-04-08] MEDS: OLANZapine 5 MG TABLET PO SCH (20:50)
[2023-04-08] MEDS: VALPROIC ACID 250 MG/5 ML SOLUTION UDCUP PO SCH (20:50)
[2023-04-08 21:54] VITALS: BP 137/76
[2023-04-09] MEDS: METOPROLOL TARTRATE 25 MG TABLET PO SCH ×2 (09:00→16:45)
[2023-04-09] MEDS: AmLODIPine BESYLATE 5 MG TABLET PO SCH ×2 (09:00→09:14)
[2023-04-09] MEDS: MULTIVITAMINS WITH MINERALS, THERAPEUTIC TABLET PO SCH (09:14)
[2023-04-09] MEDS: OMEGA-3/DHA/EPA/FISH OIL 1,000 MG CAPSULE PO SCH (09:14)
[2023-04-09] MEDS: MODAFINIL 100 MG TABLET PO SCH (09:14)
[2023-04-09] MEDS: COLCHICINE 0.6 MG TABLET PO SCH (09:14)
[2023-04-09] MEDS: NALTREXONE HCL 50 MG TABLET PO SCH (09:15)
[2023-04-09 09:30] VITALS: BP 108/64
[2023-04-09 16:45] VITALS: BP 123/78
[2023-04-09] MEDS: DOCUSATE SODIUM 250 MG CAPSULE PO SCH (20:43)
[2023-04-09] MEDS: OLANZapine 5 MG TABLET PO SCH (20:43)
[2023-04-09] MEDS: VALPROIC ACID 250 MG/5 ML SOLUTION UDCUP PO SCH (20:44)
[2023-04-09 21:44] VITALS: BP 143/73
[2023-04-10] MEDS: COLCHICINE 0.6 MG TABLET PO SCH (08:43)
[2023-04-10] MEDS: NALTREXONE HCL 50 MG TABLET PO SCH (08:49)
[2023-04-10] MEDS: AmLODIPine BESYLATE 5 MG TABLET PO SCH (08:49)
[2023-04-10] MEDS: MULTIVITAMINS WITH MINERALS, THERAPEUTIC TABLET PO SCH (08:49)
[2023-04-10] MEDS: OMEGA-3/DHA/EPA/FISH OIL 1,000 MG CAPSULE PO SCH (08:49)
[2023-04-10] MEDS: MODAFINIL 100 MG TABLET PO SCH (08:49)
[2023-04-10] MEDS: METOPROLOL TARTRATE 25 MG TABLET PO SCH ×2 (08:49→16:36)
[2023-04-10 09:44] VITALS: BP 125/75
[2023-04-10 16:36] VITALS: BP 132/90
[2023-04-10] MEDS: VALPROIC ACID 250 MG/5 ML SOLUTION UDCUP PO SCH (20:52)
[2023-04-10] MEDS: OLANZapine 5 MG TABLET PO SCH (20:53)
[2023-04-10] MEDS: DOCUSATE SODIUM 250 MG CAPSULE PO SCH (20:53)
[2023-04-10 21:22] VITALS: BP 142/78
[2023-04-11 08:20] VITALS: BP 112/66
[2023-04-11] MEDS: AmLODIPine BESYLATE 5 MG TABLET PO SCH (08:42)
[2023-04-11] MEDS: MULTIVITAMINS WITH MINERALS, THERAPEUTIC TABLET PO SCH (08:42)
[2023-04-11] MEDS: COLCHICINE 0.6 MG TABLET PO SCH (08:42)
[2023-04-11] MEDS: MODAFINIL 100 MG TABLET PO SCH (08:42)
[2023-04-11] MEDS: OMEGA-3/DHA/EPA/FISH OIL 1,000 MG CAPSULE PO SCH (08:42)
[2023-04-11] MEDS: NALTREXONE HCL 50 MG TABLET PO SCH (08:42)
[2023-04-11] MEDS: METOPROLOL TARTRATE 25 MG TABLET PO SCH ×2 (08:43→17:13)
[2023-04-11 17:12] VITALS: BP 120/82
[2023-04-11] MEDS: OLANZapine 5 MG TABLET PO SCH ×2 (21:00→21:28)
[2023-04-11] MEDS: OLANZapine 5 MG RAPDIS TABLET PO PRN (21:27)
[2023-04-11] MEDS: DOCUSATE SODIUM 250 MG CAPSULE PO SCH (21:27)
[2023-04-11] MEDS: VALPROIC ACID 250 MG/5 ML SOLUTION UDCUP PO SCH (21:28)
[2023-04-11 22:21] VITALS: BP 118/75
[2023-04-11 23:00] VITALS: BP 145/75
[2023-04-11 23:15] VITALS: BP 142/73
[2023-04-11 23:30] VITALS: BP 140/72
[2023-04-12] VITALS (7 sets, daily range): BP systolic 107–158; BP diastolic 64–80
[2023-04-12] MEDS: MULTIVITAMINS WITH MINERALS, THERAPEUTIC TABLET PO SCH (09:16)
[2023-04-12] MEDS: MODAFINIL 100 MG TABLET PO SCH (09:16)
[2023-04-12] MEDS: COLCHICINE 0.6 MG TABLET PO SCH (09:16)
[2023-04-12] MEDS: OMEGA-3/DHA/EPA/FISH OIL 1,000 MG CAPSULE PO SCH (09:16)
[2023-04-12] MEDS: NALTREXONE HCL 50 MG TABLET PO SCH (09:16)
[2023-04-12] MEDS: METOPROLOL TARTRATE 25 MG TABLET PO SCH ×2 (09:30→16:49)
[2023-04-12] MEDS: AmLODIPine BESYLATE 5 MG TABLET PO SCH (09:30)
[2023-04-12] MEDS: DOCUSATE SODIUM 250 MG CAPSULE PO SCH (20:22)
[2023-04-12] MEDS: OLANZapine 5 MG TABLET PO SCH (20:22)
[2023-04-12] MEDS: VALPROIC ACID 250 MG/5 ML SOLUTION UDCUP PO SCH (20:22)
[2023-04-13] MEDS: METOPROLOL TARTRATE 25 MG TABLET PO SCH ×2 (08:30→16:28)
[2023-04-13] MEDS: NALTREXONE HCL 50 MG TABLET PO SCH (08:30)
[2023-04-13] MEDS: OMEGA-3/DHA/EPA/FISH OIL 1,000 MG CAPSULE PO SCH (08:30)
[2023-04-13] MEDS: MODAFINIL 100 MG TABLET PO SCH (08:30)
[2023-04-13] MEDS: MULTIVITAMINS WITH MINERALS, THERAPEUTIC TABLET PO SCH (08:30)
[2023-04-13] MEDS: COLCHICINE 0.6 MG TABLET PO SCH (08:30)
[2023-04-13] MEDS: AmLODIPine BESYLATE 5 MG TABLET PO SCH (08:30)
[2023-04-13 09:00] VITALS: BP 116/91
[2023-04-13] MEDS: VALPROIC ACID 250 MG/5 ML SOLUTION UDCUP PO SCH (20:10)
[2023-04-13] MEDS: OLANZapine 10 MG TABLET PO SCH (20:10)
[2023-04-13] MEDS: DOCUSATE SODIUM 250 MG CAPSULE PO SCH (20:10)
[2023-04-13 22:01] VITALS: BP 141/94
[2023-04-14 08:56] VITALS: BP 148/98
[2023-04-14] MEDS: METOPROLOL TARTRATE 25 MG TABLET PO SCH ×2 (09:28→17:45)
[2023-04-14] MEDS: AmLODIPine BESYLATE 5 MG TABLET PO SCH (09:28)
[2023-04-14] MEDS: COLCHICINE 0.6 MG TABLET PO SCH (09:28)
[2023-04-14] MEDS: MODAFINIL 100 MG TABLET PO SCH (09:28)
[2023-04-14] MEDS: NALTREXONE HCL 50 MG TABLET PO SCH (09:28)
[2023-04-14] MEDS: OMEGA-3/DHA/EPA/FISH OIL 1,000 MG CAPSULE PO SCH (09:28)
[2023-04-14] MEDS: MULTIVITAMINS WITH MINERALS, THERAPEUTIC TABLET PO SCH (09:28)
[2023-04-14] MEDS: VALPROIC ACID 250 MG/5 ML SOLUTION UDCUP PO SCH (20:50)
[2023-04-14] MEDS: DOCUSATE SODIUM 250 MG CAPSULE PO SCH (20:50)
[2023-04-14] MEDS: OLANZapine 10 MG TABLET PO SCH (20:50)
[2023-04-14 21:59] VITALS: BP 123/69
[2023-04-15] MEDS: MULTIVITAMINS WITH MINERALS, THERAPEUTIC TABLET PO SCH (08:35)
[2023-04-15] MEDS: METOPROLOL TARTRATE 25 MG TABLET PO SCH ×2 (08:35→16:44)
[2023-04-15] MEDS: COLCHICINE 0.6 MG TABLET PO SCH (08:35)
[2023-04-15] MEDS: OMEGA-3/DHA/EPA/FISH OIL 1,000 MG CAPSULE PO SCH (08:35)
[2023-04-15] MEDS: MODAFINIL 100 MG TABLET PO SCH (08:35)
[2023-04-15] MEDS: NALTREXONE HCL 50 MG TABLET PO SCH (08:35)
[2023-04-15] MEDS: AmLODIPine BESYLATE 5 MG TABLET PO SCH (08:36)
[2023-04-15 09:51] VITALS: BP 144/86
[2023-04-15 17:02] VITALS: BP 131/87
[2023-04-15] MEDS: DOCUSATE SODIUM 250 MG CAPSULE PO SCH (20:29)
[2023-04-15] MEDS: OLANZapine 10 MG TABLET PO SCH (20:29)
[2023-04-15] MEDS: VALPROIC ACID 250 MG/5 ML SOLUTION UDCUP PO SCH (20:29)
[2023-04-16] MEDS: OMEGA-3/DHA/EPA/FISH OIL 1,000 MG CAPSULE PO SCH (08:42)
[2023-04-16] MEDS: MULTIVITAMINS WITH MINERALS, THERAPEUTIC TABLET PO SCH (08:42)
[2023-04-16] MEDS: NALTREXONE HCL 50 MG TABLET PO SCH (08:42)
[2023-04-16] MEDS: MODAFINIL 100 MG TABLET PO SCH (08:42)
[2023-04-16] MEDS: COLCHICINE 0.6 MG TABLET PO SCH (08:42)
[2023-04-16] MEDS: METOPROLOL TARTRATE 25 MG TABLET PO SCH ×2 (08:42→16:38)
[2023-04-16] MEDS: AmLODIPine BESYLATE 5 MG TABLET PO SCH (08:42)
[2023-04-16 09:00] VITALS: BP 124/57
[2023-04-16] MEDS: OLANZapine 10 MG TABLET PO SCH (20:42)
[2023-04-16] MEDS: VALPROIC ACID 250 MG/5 ML SOLUTION UDCUP PO SCH (20:42)
[2023-04-16] MEDS: DOCUSATE SODIUM 250 MG CAPSULE PO SCH (20:42)
[2023-04-16 21:37] VITALS: BP 143/93
[2023-04-17] MEDS: NALTREXONE HCL 50 MG TABLET PO SCH (08:45)
[2023-04-17] MEDS: MULTIVITAMINS WITH MINERALS, THERAPEUTIC TABLET PO SCH (08:45)
[2023-04-17] MEDS: METOPROLOL TARTRATE 25 MG TABLET PO SCH ×2 (08:45→16:43)
[2023-04-17] MEDS: AmLODIPine BESYLATE 5 MG TABLET PO SCH (08:45)
[2023-04-17] MEDS: MODAFINIL 100 MG TABLET PO SCH (08:45)
[2023-04-17] MEDS: OMEGA-3/DHA/EPA/FISH OIL 1,000 MG CAPSULE PO SCH (08:45)
[2023-04-17] MEDS: COLCHICINE 0.6 MG TABLET PO SCH (08:46)
[2023-04-17 09:09] VITALS: BP 142/75
[2023-04-17 20:24] VITALS: BP 135/80
[2023-04-17] MEDS: DOCUSATE SODIUM 250 MG CAPSULE PO SCH (21:26)
[2023-04-17] MEDS: VALPROIC ACID 250 MG/5 ML SOLUTION UDCUP PO SCH (21:26)
[2023-04-17] MEDS: OLANZapine 10 MG TABLET PO SCH (21:26)
[2023-04-18 08:05] VITALS: BP 149/72
[2023-04-18] MEDS: AmLODIPine BESYLATE 5 MG TABLET PO SCH (09:34)
[2023-04-18] MEDS: MULTIVITAMINS WITH MINERALS, THERAPEUTIC TABLET PO SCH (09:34)
[2023-04-18] MEDS: OMEGA-3/DHA/EPA/FISH OIL 1,000 MG CAPSULE PO SCH (09:34)
[2023-04-18] MEDS: METOPROLOL TARTRATE 25 MG TABLET PO SCH ×2 (09:35→17:21)
[2023-04-18] MEDS: MODAFINIL 100 MG TABLET PO SCH (09:35)
[2023-04-18] MEDS: NALTREXONE HCL 50 MG TABLET PO SCH (09:35)
[2023-04-18] MEDS: COLCHICINE 0.6 MG TABLET PO SCH (09:36)
[2023-04-18] MEDS: DOCUSATE SODIUM 250 MG CAPSULE PO SCH (20:46)
[2023-04-18] MEDS: VALPROIC ACID 250 MG/5 ML SOLUTION UDCUP PO SCH (20:47)
[2023-04-18] MEDS: OLANZapine 10 MG TABLET PO SCH (20:47)
[2023-04-18 21:10] VITALS: BP 149/70
[2023-04-19 08:31] VITALS: BP 132/84
[2023-04-19] MEDS: OMEGA-3/DHA/EPA/FISH OIL 1,000 MG CAPSULE PO SCH (09:07)
[2023-04-19] MEDS: MULTIVITAMINS WITH MINERALS, THERAPEUTIC TABLET PO SCH (09:09)
[2023-04-19] MEDS: NALTREXONE HCL 50 MG TABLET PO SCH (09:09)
[2023-04-19] MEDS: METOPROLOL TARTRATE 25 MG TABLET PO SCH ×2 (09:09→16:24)
[2023-04-19] MEDS: COLCHICINE 0.6 MG TABLET PO SCH (09:10)
[2023-04-19] MEDS: AmLODIPine BESYLATE 5 MG TABLET PO SCH (09:10)
[2023-04-19] MEDS: MODAFINIL 100 MG TABLET PO SCH (09:11)
[2023-04-19] MEDS: DOCUSATE SODIUM 250 MG CAPSULE PO SCH (20:06)
[2023-04-19] MEDS: VALPROIC ACID 250 MG/5 ML SOLUTION UDCUP PO SCH (20:06)
[2023-04-19] MEDS: OLANZapine 10 MG TABLET PO SCH (20:07)
[2023-04-19 21:11] VITALS: BP 100/60
[2023-04-20 08:00] VITALS: BP 156/92
[2023-04-20] MEDS: COLCHICINE 0.6 MG TABLET PO SCH (09:07)
[2023-04-20] MEDS: AmLODIPine BESYLATE 5 MG TABLET PO SCH (09:07)
[2023-04-20] MEDS: METOPROLOL TARTRATE 25 MG TABLET PO SCH ×2 (09:07→16:38)
[2023-04-20] MEDS: NALTREXONE HCL 50 MG TABLET PO SCH (09:07)
[2023-04-20] MEDS: MODAFINIL 100 MG TABLET PO SCH (09:07)
[2023-04-20] MEDS: MULTIVITAMINS WITH MINERALS, THERAPEUTIC TABLET PO SCH (09:07)
[2023-04-20] MEDS: OMEGA-3/DHA/EPA/FISH OIL 1,000 MG CAPSULE PO SCH (09:07)
[2023-04-20] MEDS: VALPROIC ACID 250 MG/5 ML SOLUTION UDCUP PO SCH (20:10)
[2023-04-20] MEDS: OLANZapine 10 MG TABLET PO SCH (20:10)
[2023-04-20] MEDS: DOCUSATE SODIUM 250 MG CAPSULE PO SCH (20:10)
[2023-04-21 08:51] VITALS: BP 118/68
[2023-04-21] MEDS: OMEGA-3/DHA/EPA/FISH OIL 1,000 MG CAPSULE PO SCH (10:13)
[2023-04-21] MEDS: OLANZapine 5 MG RAPDIS TABLET PO PRN (10:13)
[2023-04-21] MEDS: MODAFINIL 100 MG TABLET PO SCH (10:14)
[2023-04-21] MEDS: AmLODIPine BESYLATE 5 MG TABLET PO SCH (10:14)
[2023-04-21] MEDS: MULTIVITAMINS WITH MINERALS, THERAPEUTIC TABLET PO SCH (10:14)
[2023-04-21] MEDS: METOPROLOL TARTRATE 25 MG TABLET PO SCH ×2 (10:14→17:04)
[2023-04-21] MEDS: COLCHICINE 0.6 MG TABLET PO SCH (10:14)
[2023-04-21] MEDS: NALTREXONE HCL 50 MG TABLET PO SCH (10:14)
[2023-04-21] MEDS: GABAPENTIN 300 MG CAPSULE PO PRN (10:15)
[2023-04-21] MEDS: DOCUSATE SODIUM 250 MG CAPSULE PO SCH (20:10)
[2023-04-21] MEDS: VALPROIC ACID 250 MG/5 ML SOLUTION UDCUP PO SCH (20:10)
[2023-04-21] MEDS: OLANZapine 10 MG TABLET PO SCH (20:11)
[2023-04-21 21:08] VITALS: BP 128/69
[2023-04-22 08:00] VITALS: BP 121/96
[2023-04-22] MEDS: MODAFINIL 100 MG TABLET PO SCH (08:20)
[2023-04-22] MEDS: AmLODIPine BESYLATE 5 MG TABLET PO SCH (08:20)
[2023-04-22] MEDS: OMEGA-3/DHA/EPA/FISH OIL 1,000 MG CAPSULE PO SCH (08:20)
[2023-04-22] MEDS: COLCHICINE 0.6 MG TABLET PO SCH (08:20)
[2023-04-22] MEDS: NALTREXONE HCL 50 MG TABLET PO SCH (08:20)
[2023-04-22] MEDS: METOPROLOL TARTRATE 25 MG TABLET PO SCH ×2 (08:20→16:48)
[2023-04-22] MEDS: MULTIVITAMINS WITH MINERALS, THERAPEUTIC TABLET PO SCH (08:20)
[2023-04-22] MEDS: OLANZapine 10 MG TABLET PO SCH (20:38)
[2023-04-22] MEDS: DOCUSATE SODIUM 250 MG CAPSULE PO SCH (20:38)
[2023-04-22] MEDS: VALPROIC ACID 250 MG/5 ML SOLUTION UDCUP PO SCH (20:38)
[2023-04-22 21:02] VITALS: BP 127/88
[2023-04-23] MEDS: MODAFINIL 100 MG TABLET PO SCH (08:21)
[2023-04-23] MEDS: MULTIVITAMINS WITH MINERALS, THERAPEUTIC TABLET PO SCH (08:21)
[2023-04-23] MEDS: METOPROLOL TARTRATE 25 MG TABLET PO SCH ×2 (08:21→16:41)
[2023-04-23] MEDS: OMEGA-3/DHA/EPA/FISH OIL 1,000 MG CAPSULE PO SCH (08:21)
[2023-04-23] MEDS: COLCHICINE 0.6 MG TABLET PO SCH (08:22)
[2023-04-23] MEDS: NALTREXONE HCL 50 MG TABLET PO SCH (08:22)
[2023-04-23] MEDS: AmLODIPine BESYLATE 5 MG TABLET PO SCH (08:22)
[2023-04-23 09:55] VITALS: BP 150/53
[2023-04-23 20:56] VITALS: BP 141/75
[2023-04-23] MEDS: DOCUSATE SODIUM 250 MG CAPSULE PO SCH (21:27)
[2023-04-23] MEDS: OLANZapine 10 MG TABLET PO SCH (21:27)
[2023-04-23] MEDS: VALPROIC ACID 250 MG/5 ML SOLUTION UDCUP PO SCH (21:28)
[2023-04-23] MEDS: ACETAMINOPHEN 325 MG TABLET PO PRN (22:32)
[2023-04-23 22:37] VITALS: BP 152/99
[2023-04-24] MEDS: COLCHICINE 0.6 MG TABLET PO SCH (08:50)
[2023-04-24] MEDS: MULTIVITAMINS WITH MINERALS, THERAPEUTIC TABLET PO SCH (08:53)
[2023-04-24] MEDS: NALTREXONE HCL 50 MG TABLET PO SCH (08:53)
[2023-04-24] MEDS: AmLODIPine BESYLATE 5 MG TABLET PO SCH (08:53)
[2023-04-24] MEDS: OMEGA-3/DHA/EPA/FISH OIL 1,000 MG CAPSULE PO SCH (08:53)
[2023-04-24] MEDS: METOPROLOL TARTRATE 25 MG TABLET PO SCH ×2 (08:53→16:03)
[2023-04-24] MEDS: MODAFINIL 100 MG TABLET PO SCH (08:53)
[2023-04-24 09:11] VITALS: BP 139/100
[2023-04-24] MEDS: VALPROIC ACID 250 MG/5 ML SOLUTION UDCUP PO SCH (20:36)
[2023-04-24] MEDS: DOCUSATE SODIUM 250 MG CAPSULE PO SCH (20:37)
[2023-04-24] MEDS: OLANZapine 10 MG TABLET PO SCH (20:37)
[2023-04-24 22:13] VITALS: BP 132/81
[2023-04-25] MEDS: METOPROLOL TARTRATE 25 MG TABLET PO SCH ×2 (08:31→16:50)
[2023-04-25] MEDS: OMEGA-3/DHA/EPA/FISH OIL 1,000 MG CAPSULE PO SCH (08:31)
[2023-04-25] MEDS: AmLODIPine BESYLATE 5 MG TABLET PO SCH (08:32)
[2023-04-25] MEDS: MULTIVITAMINS WITH MINERALS, THERAPEUTIC TABLET PO SCH (08:32)
[2023-04-25] MEDS: MODAFINIL 100 MG TABLET PO SCH (08:32)
[2023-04-25] MEDS: NALTREXONE HCL 50 MG TABLET PO SCH (08:32)
[2023-04-25] MEDS: COLCHICINE 0.6 MG TABLET PO SCH (08:32)
[2023-04-25 09:03] VITALS: BP 149/93
[2023-04-25 14:17] VITALS: BP 138/87
[2023-04-25] MEDS: ACETAMINOPHEN 325 MG TABLET PO PRN ×2 (14:17→23:19)
[2023-04-25] MEDS: DOCUSATE SODIUM 250 MG CAPSULE PO SCH (20:37)
[2023-04-25] MEDS: OLANZapine 10 MG TABLET PO SCH (20:37)
[2023-04-25] MEDS: VALPROIC ACID 250 MG/5 ML SOLUTION UDCUP PO SCH (20:37)
[2023-04-25 22:11] VITALS: BP 131/64
[2023-04-25 23:13] VITALS: BP 114/73
[2023-04-26] MEDS: METOPROLOL TARTRATE 25 MG TABLET PO SCH ×2 (09:14→16:27)
[2023-04-26] MEDS: COLCHICINE 0.6 MG TABLET PO SCH (09:14)
[2023-04-26] MEDS: MULTIVITAMINS WITH MINERALS, THERAPEUTIC TABLET PO SCH (09:14)
[2023-04-26] MEDS: MODAFINIL 100 MG TABLET PO SCH (09:14)
[2023-04-26] MEDS: AmLODIPine BESYLATE 5 MG TABLET PO SCH (09:14)
[2023-04-26] MEDS: OMEGA-3/DHA/EPA/FISH OIL 1,000 MG CAPSULE PO SCH (09:14)
[2023-04-26] MEDS: NALTREXONE HCL 50 MG TABLET PO SCH (09:16)
[2023-04-26 10:21] VITALS: BP 139/90
[2023-04-26] MEDS: VALPROIC ACID 250 MG/5 ML SOLUTION UDCUP PO SCH (21:16)
[2023-04-26] MEDS: DOCUSATE SODIUM 250 MG CAPSULE PO SCH (21:17)
[2023-04-26] MEDS: OLANZapine 10 MG TABLET PO SCH (21:17)
[2023-04-27] MEDS: MODAFINIL 100 MG TABLET PO SCH (08:46)
[2023-04-27] MEDS: MULTIVITAMINS WITH MINERALS, THERAPEUTIC TABLET PO SCH (08:46)
[2023-04-27] MEDS: COLCHICINE 0.6 MG TABLET PO SCH (08:46)
[2023-04-27] MEDS: AmLODIPine BESYLATE 5 MG TABLET PO SCH (08:46)
[2023-04-27] MEDS: NALTREXONE HCL 50 MG TABLET PO SCH (08:46)
[2023-04-27] MEDS: OMEGA-3/DHA/EPA/FISH OIL 1,000 MG CAPSULE PO SCH (08:47)
[2023-04-27] MEDS: METOPROLOL TARTRATE 25 MG TABLET PO SCH ×2 (08:47→16:27)
[2023-04-27 10:27] VITALS: BP 115/93
[2023-04-27] MEDS: DOCUSATE SODIUM 250 MG CAPSULE PO SCH (21:08)
[2023-04-27] MEDS: OLANZapine 10 MG TABLET PO SCH (21:08)
[2023-04-27] MEDS: VALPROIC ACID 250 MG/5 ML SOLUTION UDCUP PO SCH (21:09)
[2023-04-27 21:42] VITALS: BP 140/88
[2023-04-28 08:00] VITALS: BP 117/62
[2023-04-28] MEDS: OMEGA-3/DHA/EPA/FISH OIL 1,000 MG CAPSULE PO SCH (09:10)
[2023-04-28] MEDS: MULTIVITAMINS WITH MINERALS, THERAPEUTIC TABLET PO SCH (09:10)
[2023-04-28] MEDS: COLCHICINE 0.6 MG TABLET PO SCH (09:11)
[2023-04-28] MEDS: NALTREXONE HCL 50 MG TABLET PO SCH (09:11)
[2023-04-28] MEDS: METOPROLOL TARTRATE 25 MG TABLET PO SCH ×2 (09:11→16:12)
[2023-04-28] MEDS: MODAFINIL 100 MG TABLET PO SCH (09:11)
[2023-04-28] MEDS: AmLODIPine BESYLATE 5 MG TABLET PO SCH (09:11)
[2023-04-28 16:09] VITALS: BP 137/97
[2023-04-28] MEDS: VALPROIC ACID 250 MG/5 ML SOLUTION UDCUP PO SCH (20:14)
[2023-04-28] MEDS: DOCUSATE SODIUM 250 MG CAPSULE PO SCH (20:15)
[2023-04-28] MEDS: OLANZapine 10 MG TABLET PO SCH (20:15)
[2023-04-28 21:26] VITALS: BP 116/56
[2023-04-29 09:06] VITALS: BP 159/84
[2023-04-29] MEDS: MODAFINIL 100 MG TABLET PO SCH (09:27)
[2023-04-29] MEDS: NALTREXONE HCL 50 MG TABLET PO SCH (09:27)
[2023-04-29] MEDS: OMEGA-3/DHA/EPA/FISH OIL 1,000 MG CAPSULE PO SCH (09:27)
[2023-04-29] MEDS: AmLODIPine BESYLATE 5 MG TABLET PO SCH (09:27)
[2023-04-29] MEDS: MULTIVITAMINS WITH MINERALS, THERAPEUTIC TABLET PO SCH (09:27)
[2023-04-29] MEDS: METOPROLOL TARTRATE 25 MG TABLET PO SCH ×2 (09:27→16:36)
[2023-04-29] MEDS: COLCHICINE 0.6 MG TABLET PO SCH (09:27)
[2023-04-29 16:34] VITALS: BP 159/88
[2023-04-29] MEDS: OLANZapine 10 MG TABLET PO SCH (20:18)
[2023-04-29] MEDS: DOCUSATE SODIUM 250 MG CAPSULE PO SCH (20:18)
[2023-04-29] MEDS: VALPROIC ACID 250 MG/5 ML SOLUTION UDCUP PO SCH (20:19)
[2023-04-29 20:30] VITALS: BP 127/70
[2023-04-30 08:02] VITALS: BP 118/74
[2023-04-30] MEDS: AmLODIPine BESYLATE 5 MG TABLET PO SCH (08:08)
[2023-04-30] MEDS: NALTREXONE HCL 50 MG TABLET PO SCH (08:08)
[2023-04-30] MEDS: MULTIVITAMINS WITH MINERALS, THERAPEUTIC TABLET PO SCH (08:08)
[2023-04-30] MEDS: OMEGA-3/DHA/EPA/FISH OIL 1,000 MG CAPSULE PO SCH (08:08)
[2023-04-30] MEDS: MODAFINIL 100 MG TABLET PO SCH (08:08)
[2023-04-30] MEDS: METOPROLOL TARTRATE 25 MG TABLET PO SCH ×2 (08:08→16:23)
[2023-04-30] MEDS: COLCHICINE 0.6 MG TABLET PO SCH (08:08)
[2023-04-30] MEDS: VALPROIC ACID 250 MG/5 ML SOLUTION UDCUP PO SCH (20:43)
[2023-04-30] MEDS: DOCUSATE SODIUM 250 MG CAPSULE PO SCH (20:44)
[2023-04-30] MEDS: OLANZapine 10 MG TABLET PO SCH (20:44)
[2023-04-30 21:05] VITALS: BP 132/67
[2023-05-01 08:00] VITALS: BP 148/93
[2023-05-01] MEDS: MULTIVITAMINS WITH MINERALS, THERAPEUTIC TABLET PO SCH (08:24)
[2023-05-01] MEDS: AmLODIPine BESYLATE 5 MG TABLET PO SCH (08:25)
[2023-05-01] MEDS: NALTREXONE HCL 50 MG TABLET PO SCH (08:25)
[2023-05-01] MEDS: COLCHICINE 0.6 MG TABLET PO SCH (08:25)
[2023-05-01] MEDS: OMEGA-3/DHA/EPA/FISH OIL 1,000 MG CAPSULE PO SCH (08:25)
[2023-05-01] MEDS: MODAFINIL 100 MG TABLET PO SCH (08:25)
[2023-05-01] MEDS: METOPROLOL TARTRATE 25 MG TABLET PO SCH ×2 (08:25→16:13)
[2023-05-01] MEDS: OLANZapine 10 MG TABLET PO SCH (20:39)
[2023-05-01] MEDS: DOCUSATE SODIUM 250 MG CAPSULE PO SCH (20:39)
[2023-05-01] MEDS: VALPROIC ACID 250 MG/5 ML SOLUTION UDCUP PO SCH (20:39)
[2023-05-01 20:55] VITALS: BP 139/79
[2023-05-02 08:00] VITALS: BP 104/56
[2023-05-02] MEDS: COLCHICINE 0.6 MG TABLET PO SCH (09:35)
[2023-05-02] MEDS: MULTIVITAMINS WITH MINERALS, THERAPEUTIC TABLET PO SCH (09:37)
[2023-05-02] MEDS: OMEGA-3/DHA/EPA/FISH OIL 1,000 MG CAPSULE PO SCH (09:37)
[2023-05-02] MEDS: MODAFINIL 100 MG TABLET PO SCH (09:37)
[2023-05-02] MEDS: NALTREXONE HCL 50 MG TABLET PO SCH (09:37)
[2023-05-02] MEDS: AmLODIPine BESYLATE 5 MG TABLET PO SCH (09:38)
[2023-05-02] MEDS: METOPROLOL TARTRATE 25 MG TABLET PO SCH ×2 (09:38→16:05)
[2023-05-02 16:06] VITALS: BP 125/69
[2023-05-02 20:27] VITALS: BP 133/84
[2023-05-02] MEDS: OLANZapine 10 MG TABLET PO SCH (20:53)
[2023-05-02] MEDS: VALPROIC ACID 250 MG/5 ML SOLUTION UDCUP PO SCH (20:53)
[2023-05-02] MEDS: DOCUSATE SODIUM 250 MG CAPSULE PO SCH (20:53)
[2023-05-03 09:22] VITALS: BP 128/83
[2023-05-03] MEDS: OMEGA-3/DHA/EPA/FISH OIL 1,000 MG CAPSULE PO SCH (09:22)
[2023-05-03] MEDS: METOPROLOL TARTRATE 25 MG TABLET PO SCH ×2 (09:22→17:37)
[2023-05-03] MEDS: MODAFINIL 100 MG TABLET PO SCH (09:22)
[2023-05-03] MEDS: AmLODIPine BESYLATE 5 MG TABLET PO SCH (09:22)
[2023-05-03] MEDS: MULTIVITAMINS WITH MINERALS, THERAPEUTIC TABLET PO SCH (09:22)
[2023-05-03] MEDS: NALTREXONE HCL 50 MG TABLET PO SCH (09:23)
[2023-05-03] MEDS: COLCHICINE 0.6 MG TABLET PO SCH (09:25)
[2023-05-03] MEDS: VALPROIC ACID 250 MG/5 ML SOLUTION UDCUP PO SCH (20:42)
[2023-05-03] MEDS: DOCUSATE SODIUM 250 MG CAPSULE PO SCH (20:42)
[2023-05-03] MEDS: OLANZapine 10 MG TABLET PO SCH (20:42)
[2023-05-03 23:04] VITALS: BP 132/69
[2023-05-04] MEDS: METOPROLOL TARTRATE 25 MG TABLET PO SCH ×2 (08:37→16:09)
[2023-05-04] MEDS: AmLODIPine BESYLATE 5 MG TABLET PO SCH (08:37)
[2023-05-04] MEDS: NALTREXONE HCL 50 MG TABLET PO SCH (08:37)
[2023-05-04] MEDS: OMEGA-3/DHA/EPA/FISH OIL 1,000 MG CAPSULE PO SCH (08:37)
[2023-05-04] MEDS: MULTIVITAMINS WITH MINERALS, THERAPEUTIC TABLET PO SCH (08:38)
[2023-05-04] MEDS: MODAFINIL 100 MG TABLET PO SCH (08:38)
[2023-05-04] MEDS: COLCHICINE 0.6 MG TABLET PO SCH (08:38)
[2023-05-04 09:57] VITALS: BP 127/92
[2023-05-04] MEDS ORDERED: OLAN10 PO (13:48)
[2023-05-04] MEDS ORDERED: NALT50TA PO (13:48)
[2023-05-04] MEDS ORDERED: OMEG-135 PO (13:48)
[2023-05-04] MEDS ORDERED: MODA100T65 PO (13:48)
[2023-05-04] MEDS ORDERED: DIVA500T69 PO (13:52)
[2023-05-04] MEDS: DIVALPROEX SODIUM 500 MG ER TABLET PO SCH (20:22)
[2023-05-04] MEDS: DOCUSATE SODIUM 250 MG CAPSULE PO SCH (20:22)
[2023-05-04] MEDS: OLANZapine 10 MG TABLET PO SCH (20:22)
[2023-05-04 21:54] VITALS: BP 140/90
[2023-05-05] MEDS: MODAFINIL 100 MG TABLET PO SCH (08:32)
[2023-05-05] MEDS: AmLODIPine BESYLATE 5 MG TABLET PO SCH (08:32)
[2023-05-05] MEDS: METOPROLOL TARTRATE 25 MG TABLET PO SCH ×2 (08:32→18:01)
[2023-05-05] MEDS: COLCHICINE 0.6 MG TABLET PO SCH (08:32)
[2023-05-05] MEDS: OMEGA-3/DHA/EPA/FISH OIL 1,000 MG CAPSULE PO SCH (08:32)
[2023-05-05] MEDS: NALTREXONE HCL 50 MG TABLET PO SCH (08:32)
[2023-05-05] MEDS: MULTIVITAMINS WITH MINERALS, THERAPEUTIC TABLET PO SCH (08:32)
[2023-05-05 08:34] VITALS: BP 129/82
[2023-05-05 11:23] LABS: COVID AG,FIA SOURCE NASAL SWAB
[2023-05-05 18:00] VITALS: BP 129/73
[2023-05-05] MEDS: OLANZapine 10 MG TABLET PO SCH (21:03)
[2023-05-05] MEDS: DIVALPROEX SODIUM 500 MG ER TABLET PO SCH (21:03)
[2023-05-05] MEDS: DOCUSATE SODIUM 250 MG CAPSULE PO SCH (21:03)
[2023-05-05 21:52] VITALS: BP 128/76
[2023-05-06] MEDS: MULTIVITAMINS WITH MINERALS, THERAPEUTIC TABLET PO SCH (08:37)
[2023-05-06] MEDS: METOPROLOL TARTRATE 25 MG TABLET PO SCH (08:37)
[2023-05-06] MEDS: OMEGA-3/DHA/EPA/FISH OIL 1,000 MG CAPSULE PO SCH (08:37)
[2023-05-06] MEDS: MODAFINIL 100 MG TABLET PO SCH (08:37)
[2023-05-06] MEDS: AmLODIPine BESYLATE 5 MG TABLET PO SCH (08:37)
[2023-05-06] MEDS: COLCHICINE 0.6 MG TABLET PO SCH (08:37)
[2023-05-06] MEDS: NALTREXONE HCL 50 MG TABLET PO SCH (08:37)
[2023-05-06 08:49] VITALS: BP 131/95
[2023-05-06] MEDS ORDERED: OLAN10 PO (13:36)
[2023-05-06] MEDS ORDERED: NALT50TA PO (13:36)
[2023-05-06] MEDS ORDERED: MODA100T65 PO (13:36)
[2023-05-06] MEDS ORDERED: OMEG-135 PO (13:36)
[2023-05-06] MEDS ORDERED: DIVA500T69 PO (13:36)
== END 2023-05-06 15:00 | disposition home or self-care (01) | DRG 750 ==
LOC: 3EI 23:00 → UNDODISIN 03-04 07:30
PROVIDERS: ADMIT Psychiatry & Neurology Psychiatry; ATTEND Psychiatry & Neurology Psychiatry
PROC: GZHZZZZ Group Psychotherapy (ICD-10-PCS; principal; 2022-11-25)
PROC: GZ51ZZZ Individual Psychotherapy, Behavioral (ICD-10-PCS; 2022-11-25)
DX: F20.9 Schizophrenia, unspecified (principal); R65.10 Systemic inflammatory response syndrome (SIRS) of non-infectious origin without acute organ dysfunction; E87.1 Hypo-osmolality and hyponatremia; F17.200 Nicotine dependence, unspecified, uncomplicated; R79.89 Other specified abnormal findings of blood chemistry; R03.0 Elevated blood-pressure reading, without diagnosis of hypertension; H54.7 Unspecified visual loss; N18.9 Chronic kidney disease, unspecified; R00.0 Tachycardia, unspecified; Z55.9 Problems related to education and literacy, unspecified; Z59.9 Problem related to housing and economic circumstances, unspecified; Z63.9 Problem related to primary support group, unspecified; Z65.9 Problem related to unspecified psychosocial circumstances
CPT/HCPCS: 76770; 80048; 80053; 80159; 80164; 81001; 81002; 82570; 83036; 83735; 83880; 84100; 84300; 84540; 84550; 85014; 85018; 85025; 87081; 97116; 97163; 97166; 97530; 97535; J0885; Q0162; Q9967

== ENCOUNTER 2022-12-31 06:28 | Day surgery (SDC) | payer MEDICAID ==
[2022-12-31] MEDS: KETOROLAC TROMETHAMINE 0.5% 5 ML OPHTHALMIC SOLUTION OD SCH ×3 (06:03→06:32)
[2022-12-31] MEDS: TROPICAMIDE 1% 2 ML OPHTHALMIC SOLUTION OD SCH ×3 (06:03→06:32)
[2022-12-31] MEDS: PHENYLEPHRINE HCL 2.5% 2 ML OPHTHALMIC SOLUTION OD SCH ×3 (06:03→06:32)
[2022-12-31] MEDS: MOXIFLOXACIN HCL 0.5% 3 ML OPHTHALMIC SOLUTION OD SCH ×3 (06:03→06:32)
[~2022-12-31 06:28] MED LIST changes: -ALBU18HF12 IH; +ALBU8HFA IH; -ETHY1MED2 NASAL; +KETOROLAC TROMETHAMINE 0.5% 5 ML OPHTHALMIC SOLUTION ONE; +MOXIFLOXACIN HCL 0.5% 3 ML OPHTHALMIC SOLUTION ONE; +PHENYLEPHRINE HCL 2.5% 2 ML OPHTHALMIC SOLUTION ONE; +RINGERS SOLUTION,LACTATED 500 ML IV ONE; +TROPICAMIDE 1% 2 ML OPHTHALMIC SOLUTION ONE
[2022-12-31] MEDS ORDERED: POVIDONE-IODINE 5% 30 ML OPHTHALMIC SOLUTION OD ONE (06:29)
[2022-12-31] MEDS ORDERED: HYALURONATE SOD 8.5MG/0.85ML 10 MG/ML SYRINGE IO ONE (06:29)
[2022-12-31] MEDS ORDERED: EPINEPHrine 1:1,000 [1 MG/ML] VIAL ET ONE (06:29)
[2022-12-31] MEDS ORDERED: CHONDR SULF A SOD/HYALURONATE 1.05 ML KIT IO ONE (06:29)
[2022-12-31] MEDS ORDERED: LIDOCAINE/PF 1% 2 ML VIAL CAUDAL ONE (06:29)
[2022-12-31] MEDS ORDERED: BALANCED SALT 15 ML OPHTHALMIC IRRIG.SOLN IO ONE (06:29)
[2022-12-31] MEDS ORDERED: AcetaZOLAMIDE SODIUM 500 MG VIAL IVP ONE (08:09)
[2022-12-31] MEDS ORDERED: ALBUTEROL SULFATE 2.5 MG/0.5 ML NEB SOLUTION NEB ONE (08:25)
[2022-12-31] MEDS ORDERED: IPRATROPIUM BROMIDE 0.5 MG/2.5 ML NEB SOLUTION NEB ONE (08:26)
[2022-12-31] MEDS ORDERED: ALBUTEROL SULFATE 2.5 MG/0.5 ML NEB SOLUTION NEB SCH (08:30)
[2022-12-31] MEDS ORDERED: IPRATROPIUM BROMIDE 0.5 MG/2.5 ML NEB SOLUTION NEB SCH (08:30)
[2022-12-31] MEDS ORDERED: LIDOCAINE/PF 2% 5 ML VIAL IM ONE (12:00)
[2022-12-31] MEDS ORDERED: ROCURONIUM BROMIDE 10 MG/ML 5 ML VIAL IVP ONE (12:00)
[2022-12-31] MEDS ORDERED: MIDAZOLAM HCL 2 MG/2 ML VIAL IVP ONE (12:00)
[2022-12-31] MEDS ORDERED: ONDANSETRON HCL 4 MG/2 ML VIAL IVP ONE (12:00)
[2022-12-31] MEDS ORDERED: GLYCOPYRROLATE 0.2 MG/ML VIAL IM ONE (12:00)
[2022-12-31] MEDS ORDERED: FentaNYL CITRATE PF 100 MCG/2 ML VIAL IVP ONE (12:00)
[2022-12-31] MEDS ORDERED: PROPOFOL 1% 20 ML VIAL IVP ONE (12:00)
[2022-12-31] MEDS ORDERED: OXYGEN THERAPY IH SCH (20:00)
== END 2022-12-31 09:30 | disposition still patient (30) ==
LOC: SURGERY 06:28
PROVIDERS: ATTEND Ophthalmology
DX: H25.21 Age-related cataract, morgagnian type, right eye (principal); Z79.899 Other long term (current) drug therapy; Z88.8 Allergy status to other drugs, medicaments and biological substances
CPT/HCPCS: 66982; 93005; J1120; J2704; J0171; J3010; J3490 ×4; J2250; J2405; Q9967; J7120; V2632

== ENCOUNTER 2023-03-04 07:31 | Day surgery (SDC) | payer MEDICAID ==
[~2023-03-04] VITALS: Ht 165.1 cm; Wt 91.4 kg
[~2023-03-04 07:31] MED LIST changes: +ALBU18HF12 IH; -ALBU8HFA IH; -KETOROLAC TROMETHAMINE 0.5% 5 ML OPHTHALMIC SOLUTION ONE; -MOXIFLOXACIN HCL 0.5% 3 ML OPHTHALMIC SOLUTION ONE; -PHENYLEPHRINE HCL 2.5% 2 ML OPHTHALMIC SOLUTION ONE; -RINGERS SOLUTION,LACTATED 500 ML IV ONE; -TROPICAMIDE 1% 2 ML OPHTHALMIC SOLUTION ONE
[2023-03-04] MEDS ORDERED: ROCURONIUM BROMIDE 10 MG/ML 5 ML VIAL IVP ONE (07:32)
[2023-03-04] MEDS ORDERED: LIDOCAINE/PF 2% 5 ML SYRINGE IVP ONE (07:32)
[2023-03-04] MEDS ORDERED: ONDANSETRON HCL 4 MG/2 ML VIAL IVP ONE (07:32)
[2023-03-04] MEDS ORDERED: POVIDONE-IODINE 5% 30 ML OPHTHALMIC SOLUTION OD ONE (07:32)
[2023-03-04] MEDS ORDERED: BALANCED SALT 15 ML OPHTHALMIC IRRIG.SOLN IO ONE (07:32)
[2023-03-04] MEDS ORDERED: EPINEPHrine 1:1,000 [1 MG/ML] VIAL ET ONE (07:32)
[2023-03-04] MEDS ORDERED: CHONDR SULF A SOD/HYALURONATE 1.05 ML KIT IO ONE (07:32)
[2023-03-04] MEDS ORDERED: PROPOFOL 1% 20 ML VIAL IVP ONE (07:32)
[2023-03-04] MEDS ORDERED: LIDOCAINE/PF 1% 2 ML VIAL CAUDAL ONE (07:32)
[2023-03-04] MEDS ORDERED: MIDAZOLAM HCL 2 MG/2 ML VIAL IVP ONE (07:32)
[2023-03-04] MEDS ORDERED: FentaNYL CITRATE PF 100 MCG/2 ML VIAL IVP ONE (07:32)
[2023-03-04] MEDS ORDERED: SODIUM CHLORIDE 0.9% 1,000 ML IV ONE (09:30)
[2023-03-04 09:41] LABS: GLUCOMETER DEV NAME(LOC) SDS.; GLUCOSE,POINT OF CARE 79 MG/DL (70-110)
[2023-03-04] MEDS ORDERED: RINGERS SOLUTION,LACTATED 500 ML IV ONE (10:00)
[2023-03-04] MEDS: TROPICAMIDE 1% 2 ML OPHTHALMIC SOLUTION OS SCH ×3 (10:05→10:18)
[2023-03-04] MEDS: MOXIFLOXACIN HCL 0.5% 3 ML OPHTHALMIC SOLUTION OS SCH ×3 (10:05→10:18)
[2023-03-04] MEDS: PHENYLEPHRINE HCL 2.5% 2 ML OPHTHALMIC SOLUTION OS SCH ×3 (10:05→10:18)
[2023-03-04] MEDS: KETOROLAC TROMETHAMINE 0.5% 5 ML OPHTHALMIC SOLUTION OS SCH ×3 (10:05→10:18)
== END 2023-03-04 12:45 | disposition admitted as inpatient to this hospital (09) ==
LOC: SURGERY 07:31
PROVIDERS: ATTEND Ophthalmology
DX: H25.12 Age-related nuclear cataract, left eye (principal); F20.9 Schizophrenia, unspecified; Z79.899 Other long term (current) drug therapy; Z86.73 Personal history of transient ischemic attack (TIA), and cerebral infarction without residual deficits
CPT/HCPCS: 66984; 82962; 93005; J2704; J0171; J3010; J3490 ×3; J2250; J2405; Q9967; J7120; V2632